=== PATIENT | female | born 1950 | race Caucasian/White ===

== ENCOUNTER → 2017-12-25 09:59 | Outpatient (CLI) | payer BC, SELFPAY ==
--- NOTE | 2017-12-25 10:04 | HPBI_ITS ---
MAMMOGRAPHY - BILATERAL SCREENING REASON FOR EXAM: Female, 67 years old. Routine annual screening examination. PERTINENT HISTORY: Non-contributory. Remote right breast biopsy. TECHNIQUE: Digital bilateral breast latonya (3D mammographic acquisition) in the CC and MLO projections. 2-D mediolateral oblique (MLO) and craniocaudad (CC) views of both breasts were obtained. CAD: Full Field Digital Mammography with Computer Added Detection was performed. COMPARISON: Comparison is made with prior study dated June 22, 2015 and October 28, 2013. FINDINGS: Breast Composition: The breasts are almost entirely fatty. There are no dominant masses or suspicious calcifications. There is a stable 1 cm nodular density in the mid anterior lateral portion of the right breast. This is unchanged from prior studies. Correlation with ultrasound is recommended. This may represent a small lymph node. No other significant abnormalities are identified. There has been no significant change since the prior study. HPBI/SCREENING MAMM (CAD), BILAT IMPRESSION: Stable nodular density in the right breast as described. Correlation with ultrasound is recommended. ASSESSMENT CATEGORY: BIRADS Category 0: Incomplete. Need additional imaging evaluation. A letter regarding these results will be sent to the patient by the facility within 30 days. Approximately 10% of breast cancers are not detected by mammography. A normal mammogram should not delay biopsy of a clinically suspicious abnormality. [id number] Electronically Signed: Louis Serrano MD at 8:18 EDT Tel [phone], Service support ,
== END ==
PROVIDERS: Visit Provider Obstetrics & Gynecology
DX: N63.10 Unspecified lump in the right breast, unspecified quadrant (principal)
CPT/HCPCS: 77063; 77067

== ENCOUNTER → 2018-01-02 15:01 | Outpatient (CLI) | payer BC, SELFPAY ==
--- NOTE | 2018-01-02 15:02 | US_ITS ---
STUDY: ULTRASOUND BREAST - RIGHT REASON FOR EXAM: Female, 67 years old. Abnormal mammogram TECHNIQUE: Axial and longitudinal images of the RIGHT breast were performed with a high resolution ultrasound transducer. COMPARISON: Mammogram from 12/25/2017 FINDINGS: RIGHT Breast: Ultrasound evaluation in the upper outer quadrant of the right breast shows no suspicious shadowing solid lesion, architectural distortion or shadowing calcifications. There are 2 hypoechoic nodules with fatty centers consistent with benign lymph nodes. The larger measures 1.8 x 1.7 x 0.7 cm, smaller 1.4 x 1.7 x 0.87 m. US/Breast Limited Unilateral IMPRESSION: No suspicious mammographic findings, benign lymph nodes identified. Follow-up mammogram in one year recommended. ASSESSMENT CATEGORY: BIRADS Category 2: Benign. A letter regarding these results will be sent to the patient by the facility within 30 days. Electronically Signed: Carlos Monroe MD at 8:19 EDT , Service support ,
== END ==
PROVIDERS: Visit Provider Obstetrics & Gynecology
DX: D36.0 Benign neoplasm of lymph nodes (principal)
CPT/HCPCS: 76642

== ENCOUNTER → 2019-02-23 13:00 | Outpatient (CLI) | payer BC, SELFPAY ==
--- NOTE | 2019-02-23 13:04 | BI_ITS ---
MAMMOGRAPHY - BILATERAL SCREENING REASON FOR EXAM: Female, 68 years old. Routine annual screening examination. PERTINENT HISTORY: Non-contributory. Prior right breast biopsy. TECHNIQUE: Digital bilateral breast latonya (3D mammographic acquisition) in the CC and MLO projections. 2-D mediolateral oblique (MLO) and craniocaudad (CC) views of both breasts were obtained. CAD: Full Field Digital Mammography with Computer Added Detection was performed. COMPARISON: Comparison is made with prior study dated June 22, 2015 and December 25, 2017. FINDINGS: Breast Composition: There are scattered areas of fibroglandular density. There are no dominant masses or suspicious calcifications. Stable 1 cm well-defined nodular density in the superior lateral anterior aspect of the right breast. This is unchanged when compared to multiple prior exams. Prior ultrasound demonstrated a small lymph node. No other significant abnormalities are identified. There has been no significant change since the prior study. BI/SCREENING MAMM (CAD), BILAT IMPRESSION: Stable bilateral screening mammogram. Yearly follow-up mammogram recommended. (A) ASSESSMENT CATEGORY: BIRADS Category 2: Benign. A letter regarding these results will be sent to the patient by the facility within 30 days. Approximately 10% of breast cancers are not detected by mammography. A normal mammogram should not delay biopsy of a clinically suspicious abnormality. [id number] Electronically Signed: Louis Serrano, at 15:05 EDT , Service support ,
== END ==
PROVIDERS: Family Provider Orthopaedic Surgery; PCP Orthopaedic Surgery; Referring Provider Obstetrics & Gynecology; Visit Provider Obstetrics & Gynecology
DX: Z12.31 Encounter for screening mammogram for malignant neoplasm of breast (principal)
CPT/HCPCS: 77063; 77067

== ENCOUNTER → 2021-05-10 13:42 | Outpatient (CLI) | payer MEDICARE, OTHER, SELFPAY ==
--- NOTE | 2021-05-10 13:45 | VDUE_ITS ---
Reason For Study: ESRD Right Arm Left Arm Right cephalic vein is compressible. Left cephalic vein is compressible. Right Cephalic Vein at the shoulder Left Cephalic Vein above antecub measures .36 measures .19 x .22 cm. x .38 cm. Right Cephalic Vein mid bicep measures .17 Left Cephalic Vein below antecub measures .24 x .19 cm. x .26 cm. Right Cephalic Vein above antecub Left Cephalic Vein in the forearm measures .2 measures .31 x .34 cm. x .19 cm. Right Cephalic Vein below antecub Left Cephalic Vein at the wrist measures .26 measures .22 x .24 cm. x .26 cm. Right Cephalic Vein in the forearm Cephalic V in the upper arm is tortuous and measures .22 x .23 cm. to small in caliber to assess. Right Cephalic Vein at the wrist measures .17 Left basilic vein is compressible. x .18 cm. Basilic vein at bicep measures .24 x .27 cm. Right basilic vein is compressible. Basilic vein above antecub measures .26 x .28 Right Basilic Vein mid bicep measures .16 cm. x .18 cm. Basilic vein below antecub measures .08 x .08 Right Basilic Vein above antecub measures .2 cm. x .21 cm. Basilic vein in the forearm measures .08 Right Basilic Vein below antecub measures .2 x .09 cm. x .19 cm. Basilic vein at the wrist measures .07 x .08 Right Basilic Vein in the forearm cm. measures .08 x .09 cm. Brachial art .29 x .28 cm Right Basilic Vein at the wrist measures .06 Brachial art 168.8 cm/s x .07 cm. Radial art .15 x .14cm Brachial art .32 x .33 cm Radial art 118.2 cm/s. Brachial art 162.9 cm/s Radial art .13 x .12 cm Radial art 80 cm/s. VL/Saphenous Vein Mapping, Bilat Interpretation Summary Patent and compressible bilateral extremity cephalic and basilic veins were not ed. The left upper arm cephalic vein is tortuous and too small in caliber to identi fy The bilateral upper arm basilic veins are also noted to be small Bilateral radial arteries are small. Bilateral brachial arteries are adequate Arterial flow rate slightly elevated in the radial and brachial arteries. Ordering Physician: Kellie Trinh Performed By: Nacho Wheeler RVT ?
== END ==
PROVIDERS: PCP Orthopaedic Surgery; Referring Provider Student in an Organized Health Care Education/Training Program; Visit Provider Student in an Organized Health Care Education/Training Program
DX: Z01.818 Encounter for other preprocedural examination (principal); N18.6 End stage renal disease
CPT/HCPCS: 93970; 93985

== ENCOUNTER 2021-06-25 05:31 | Day surgery (SDC) | payer MEDICARE, OTHER, SELFPAY ==
[2021-05-17 10:10] VITALS: BMI 41.7
--- NOTE | 2021-06-19 09:14 | EKG12_ITS ---
Test Reason : PREOP Blood Pressure : / mmHG Vent. Rate : 071 BPM Atrial Rate : 071 BPM P-R Int : 176 ms QRS Dur : 186 ms QT Int : 492 ms P-R-T Axes : 061 262 046 degrees QTc Int : 534 ms Atrial-sensed ventricular-paced rhythm with occasional Premature ventricular complexes Abnormal ECG Confirmed by SAE CHILDERS, MACKENZIE ([id number]), newspaper editor managing GAY BUSH ([id number]) on 06/20/2021 9:20:45 AM Referred By: Que Rob Confirmed By:MACKENZIE QUEVEDO MD
[2021-06-19 09:56] LABS: Hematocrit 30.1 % (37-47); Hemoglobin 9.2 g/dL (12.0-15.0); Mean Corp Hgb Conc 30.6 g/dL (32-36); Mean Corpuscular Hgb 30.8 pg (27.0-32.0); Mean Corpuscular Volume 100.7 fL (81-99); Mean Platelet Vol. 10.4 fl (6.2-12.0); Platelet Count 267 K/mm3 (150-450); RBC Distribution Width CV 14.6 % (11.6-14.6); RBC Distribution Width SD 53.5 fl (35.1-43.9); Red Blood Count 2.99 M/mm3 (4.2-5.4); White Blood Count 7.2 K/mm3 (4.4-11.0)
[2021-06-19 10:09] LABS: Anion Gap 7 (5-15); BUN 23 mg/dL (7-18); BUN/Creat Ratio 4.6 RATIO (10-20); Calcium,Total 10.4 mg/dL (8.5-10.1); Chloride 99 mmol/L (98-107); Creatinine, Serum 4.97 mg/dL (0.55-1.02); EST Glomerular Filtration Rate 9 mL/min (>60); Est Glom Filt Rate - Afr Amer 11 mL/min (>60); Glucose 168 mg/dL (74-106); Potassium 3.2 mmol/L (3.5-5.1); Sodium Level 135 mmol/L (136-145)
--- NOTE | 2021-06-25 06:19 | HP.PCM_ITS ---
History and Physical Date of Admission: 06/25/21 Intake Visit Reasons: 05/10 WC, PERMANT ACCESS PLACEMENT Chief Complaint: fistula consult Database Admin Required: No Is patient in pain?: No Allergies ibuprofen Allergy (Mild, Verified 05/17/21 10:11) PT UNSURE OF REACTION Medications aspirin 81 mg tablet,delayed release 81 mg PO DAILY 05/17/21 [History Confirmed 05/17/21] bisoprolol fumarate 5 mg tablet ea PO 05/17/21 [History Confirmed 05/17/21] ciprofloxacin HCl 250 mg tablet tablet PO 05/17/21 [History Confirmed 05/17/21] lactobacillus combo no.11 15 billion cell sprinkle capsule 1 cap PO DAILY 05/17/21 [History Confirmed 05/17/21] sitagliptin 25 mg tablet ea PO 05/17/21 [History Confirmed 05/17/21] vitamin B complex-vitamin C-folic acid 0.8 mg tablet 1 tab PO DAILY 05/17/21 [History Confirmed 05/17/21] [facility] Medical History (Updated 05/17/21 @ 10:[address] Que Rob MD) Acute renal failure (ARF) Bone spur Heart disease Low blood pressure Surgical History (Updated 05/17/21 @ 10:09 by Dolores Majano) S/P cardiac pacemaker procedure S/P laparoscopic cholecystectomy Family History (Updated 05/17/21 @ 10:10 by Dolores Majano) Father Diabetes Heart disease Mother Heart disease Social History (Updated 05/17/21 @ 10:10 by Dolores Majano) Smoking Status: Former smoker alcohol intake: never HPI HPI HPI: CLINTON COYLE, is a 70 F who presents to the office today for surgical consultation regarding arteriovenous hemodialysis fistula creation. The patient is referred by Dr. Trinh and a written copy my surgical consult recommendations will return to him. 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 Dialysis initiated at [facility] dialysis center in [facility]. The patient states that she was hospitalized in [facility] for 2 weeks and then has had a 20-day fdc stay. When questioned whether she is on oxygen apparently not during the day but she does require 3 L at night. She states that she has pulmonary restrictive disease. She is not clear as to the etiology of that. To complicate matters even further she has a pacemaker left chest going through the left subclavian vein. She is morbidly obese with a BMI of 41.7 her vein mapping is as noted below. May 10, 2021 Reason For Study: ESRD Right Arm Left Arm Right cephalic vein is compressible. Left cephalic vein is compressible. Right Cephalic Vein at the shoulder Left Cephalic Vein above antecub measures .36 measures .19 x .22 cm. x .38 cm. Right Cephalic Vein mid bicep measures .17 Left Cephalic Vein below antecub measures .24 x .19 cm. x .26 cm. Right Cephalic Vein above antecub Left Cephalic Vein in the forearm measures .2 measures .31 x .34 cm. x .19 cm. Right Cephalic Vein below antecub Left Cephalic Vein at the wrist measures .26 measures .22 x .24 cm. x .26 cm. Right Cephalic Vein in the forearm Cephalic V in the upper arm is tortuous and measures .22 x .23 cm. to small in caliber to assess. Right Cephalic Vein at the wrist measures .17 Left basilic vein is compressible. x .18 cm. Basilic vein at bicep measures .24 x .27 cm. Right basilic vein is compressible. Basilic vein above antecub measures .26 x .28 Right Basilic Vein mid bicep measures .16 cm. x .18 cm. Basilic vein below antecub measures .08 x .08 Right Basilic Vein above antecub measures .2 cm. x .21 cm. Basilic vein in the forearm measures .08 Right Basilic Vein below antecub measures .2 x .09 cm. x .19 cm. Basilic vein at the wrist measures .07 x .08 Right Basilic Vein in the forearm cm. measures .08 x .09 cm. Brachial art .29 x .28 cm Right Basilic Vein at the wrist measures .06 Brachial art 168.8 cm/s x .07 cm. Radial art .15 x .14cm Brachial art .32 x .33 cm Radial art 118.2 cm/s. Brachial art 162.9 cm/s Radial art .13 x .12 cm Radial art 80 cm/s. VL/Saphenous Vein Mapping, Bilat Interpretation Summary Patent and compressible bilateral extremity cephalic and basilic veins were noted. The left upper arm cephalic vein is tortuous and too small in caliber to identify The bilateral upper arm basilic veins are also noted to be small Bilateral radial arteries are small. Bilateral brachial arteries are adequate Arterial flow rate slightly elevated in the radial and brachial arteries. Ordering Physician: Kellie Trinh Performed By: Nacho Wheeler RVT ? 05/10/21 1530Date Que Rob ROS General General: Yes weight change; No appetite, fatigue, colon cancer, breast cancer or weakness HEENT HEENT: No difficulty swallowing, eye injury, eye surgery, swollen glands or hoarseness Endo Endocrine: Yes diabetes mellitus; No thyroid disease, thyroid cancer, Hair loss, heat intolerance or cold intolerance Skin Skin: No rash or changing moles Breast Breast: No left breast lump, right breast lump, nipple discharge, breast pain, abnormal mammogram, abnormal US or breast enlargement Musc Musculoskeletal: No back problems, arthritis, rheumatoid arthritis, gout or joint pain Cardio Cardiovascular: Yes pacemaker and high blood pressure; No murmur, heart disease, atrial fibrillation, heart attack, heart stent, palpitations, shortness of breat with exertion or chest pain Psych Psychiatric: No depression, anxiety or hearing voices Resp Respiratory: No shortness of breath, Yes sleep apnea, No cough, No COPD, No asthma, No emphysema and No wheezing Gastro Gastrointestinal: No abdominal pain, No nausea or vomiting, No diarrhea, No constipation, No blood in stool, No acid reflux, No hemorrhoids, No ulcers, No gallbladder problem and No black,tarry stools Aldo Hematologic: No blood thinners, No blood disorders, No bleeding, No anemia and No blood clots Neuro Neurologic: No system reviewed and no additional complaints, except as documented, No as per HPI, No abnormal gait, No abnormal hearing, No abnormal movements, No abnormal speech, No behavioral changes, No burning sensations, No confusion, No convulsions, No disequilibrium, No dizziness, No localized weakness, No frequent falls, No headache(s), No lack of coordination, No loss of vision, No memory loss, No numbness, No other visual disturbances, No radicular pain, No restless legs, No sensory deficit, No syncope, No tingling, No tremor(s), No weakness and No other Exam Const General: cooperative, comfortable and no acute distress Nutritional Appearance: obese Other: Patient is in a wheelchair [facility] Head: normal to inspection Chest Other: Increased AP diameter Left chest pacemaker Right internal jugular tunneled dialysis catheters Resp Other: Poor respiratory excursion, tight, bilateral bibasilar rales Cardio Rate: regular rate Rhythm: regular rhythm GI Other: Overweight Skin Other: Skin integrity bilateral upper extremities intact. Neuro Cognition: normal cognition Extrem Other: Notable bilateral lower extremity edema and increased diameter Psych Thought Process: normal COVID (Procedure Consent) Procedure Criteria Procedure Criteria: Yes Elective The surgeon/proceduralist and patient have discussed in detail the risk of exposure to and/or potential harm posed by the COVID-19 virus with having a surgery/procedure at this time versus the risk of delaying the surgery/procedure. It is not possible to know either the risk of delaying the surgery or procedure or chance of getting an infection with perfect accuracy, but a joint decision was made between the patient and the surgeon/proceduralist to proceed at this time with the scheduled surgery/procedure as indicated on the consent form. Assessment and Plan Assessment and Plan (1) Chronic renal failure, stage 5: Status: Chronic (2) Pacemaker: Status: Acute (3) Hemodialysis patient: Status: Acute (4) Morbid obesity: Status: Acute (5) Restrictive lung disease: Status: Acute Plan - Dr. Que Rob MD: 70-year-old female presents with a complexity of medical issues. With the pacemaker in left chest the left upper extremity is not utilize approval for grafts or fistulas. Her duplex imaging the right extremity demonstrates diminutive artery and veins. On my ultrasound inspection the cephalic vein of the forearm is significantly small. The cephalic vein of the upper arm is borderline but is noted to be in places at least a couple centimeters deep. After review I believe that the best option her for her would be a loop right forearm graft. I would like to use bovine carotid artery. I would anticipate trying to access the antecubital vein staying distal to the crease and hopefully the brachial artery just distal as well. This would then allow for maturation of the upper arm cephalic and basilic veins for potential future use for a autologous AV fistula. She has had an opportunity to ask and have questions answered. No guarantees of success have been offered. Her medical comorbidities as noted above certainly adds complexity. I have encouraged her to continue with her rehab and work with her primary care to assist with in particular her restrictive pulmonary disease. I would anticipate that we likely would attempt to proceed with this right forearm loop AV graft under monitored anesthesia care. I would need to have a combination of half percent lidocaine and mixed Marcaine local anesthetic We will schedule procedure at her discretion Copy: Dr. Trinh and Dr. Joe Rob M.D., F.A.C.S. Coding Level of Care Code 80587 Diagnoses Chronic renal failure, stage 5 N18.5 Pacemaker Z95.0 Hemodialysis patient Z99.2 Morbid obesity E66.01 Restrictive lung disease J98.4 Assessment & Plan Assessment/Plan (1) Chronic renal failure, stage 5: (2) Hemodialysis patient: PLAN: Pt has not had dialysisThe patient since Friday. She states that she limits her fluid and salt. She complains however that she is feeling bloated throughout. Her lower extremities are swollen. She states they get that way when she does not wear support hose. She states they usually go down by morning. It is unclear as to whether she thought her legs were less swollen this morning prior to coming in. She then states that over the past 2 to 3 weeks she has noticed increased swelling. She states there is been no comment made at the dialysis center. The patient has tunneled right internal jugular dialysis catheters. She is morbidly obese with a BMI of 41.. She has a pacemaker left chest I am hopeful for a right forearm loop AV graft. I have discussed with and we anticipate proceeding with monitored anesthesia care. Dr. Joe Ponce I have additionally instructed the patient she needs to pursue dialysis soon as possible. Que Rob M.D., F.A.C.S.
[2021-06-25] MEDS: 0.9% Normal Saline 1,000 ML 30 ML IV (06:37)
[2021-06-25 06:38] VITALS: BP 133/64; PULSE 74; RESP 16; TEMP 36.9; O2SAT 98; BMI 41.7
[2021-06-25 06:51] LABS: Bedside Glucose 135 mg/dL (70-110)
--- NOTE | 2021-06-25 06:57 | EX.PCM.DISCH ---
Discharge Instructions Procedure Appendectomy Diet Discharge Diet: Light diet - advance as tolerated Activity Discharge Activity: May Not Drive (for 3-5 days or while taking narcotic pain meds.) May shower in (days): 1 Dressing / Incision Call your doctor if your incision/area has: Continuous Slow Oozing, Sudden Increased Bleeding, Increased Pain/ Swelling, Increased Redness and Foul Smelling Discharge Call your doctor if you observe: Fever of 101 or Higher Suture Line Care: Avoid Pulling/Pushing and Avoid Pinching/Bending Additional Dressing/Incision Instructions:: Keep dressing clean and dry. Change or remove dressing in 2 days. Leave steri strips for 1 week. May protect with a gauze bandaid. Follow Up Care Please Follow Up With: Que Rob MD When: Call [phone] to make an appointment to be seen in 7 days. Test Results: Elevate your right arm for comfort. You may remove the elastic wrap tomorrow. Discharge Plan Admission Primary Reason for Your Visit: Stage V renal failure and need of arteriovenous hemodialysis access Attending Provider: Que Rob Primary Care Provider: Joe Heaton Discharge Orders/Prescriptions Prescriptions: New hydrocodone-acetaminophen 5-325 mg tablet 1 tab PO Q8H PRN (Reason: pain) 2 Days Qty: 5 RF: 0 Continued bisoprolol fumarate 5 mg tablet 2.5 mg PO SUTUTHSA RF: 0 Renal Vitamin 0.8 mg tablet 1 tab PO DAILY RF: 0 aspirin 81 mg tablet,delayed release (DR/EC) 81 mg PO DAILY RF: 0 Januvia 25 mg tablet 25 mg PO DAILY RF: 0 fluorometholone 0.1 % drops,suspension 1 drp EACH EYE QODAY RF: 0 Virt-Caps 1 mg capsule 1 cap PO DAILY RF: 0 Alphagan P 0.1 % drops 1 drp RIGHT EYE BID RF: 0 Referrals / Follow Up: Joe Heaton MD [Primary Care Provider] - Disposition Disposition (needs filled in before D/C Order can be placed): Home, Self Care
[2021-06-25] MEDS: Bupivacaine Mpf 0.5% 30 ML VIAL (07:42)
[2021-06-25] MEDS: Lidocaine 1% (30 ml sdv) 30 ML Vial (07:42)
[2021-06-25] MEDS: Heparin Injection (Vial) 5,000 UNIT/ML VIAL 5000 UNIT ×2 (08:30→09:00)
[2021-06-25] MEDS: 0.9% Normal Saline (Pres. free 10 ML Vial (08:30)
[2021-06-25] MEDS: Lidocaine 0.5% (50 ml) 50 ML Vial (09:30)
--- NOTE | 2021-06-25 09:39 | PCM.OPRPT ---
Problems Associated Problem List Diagnoses (1) Chronic renal failure, stage 5: (2) Hemodialysis patient: Report of Operation Date of Procedure: 06/25/21 Pre-Operative Diagnosis: Stage V chronic renal insufficiency on hemodialysis Post-Operative Diagnosis: Same Surgery/Procedure Performed:: Right upper extremity brachial to cephalic Artegraft collagen vascular graft loop forearm creation Reference [id number] Lot [id number] Expiry date 04/09/2024 Description of Surgical Findings:: Timeout and informed consent was obtained. Patient was taken to the operating placed on the table underwent monitored anesthesia care. 2 g of Ancef were given intravenously. The right upper extremity was sterilely prepped and draped. Throughout the procedure 16 cc of 1% lidocaine mixed 50-50 with 0.5% Marcaine was used as a local anesthetic. 20 cc of half percent lidocaine was used as a local anesthetic. Ultrasound mapping was performed. Local was instilled. A transverse incision was made just distal to the antecubital crease right upper extremity. Sharp and blunt dissection was used to identify the cephalic vein outflow. Sharp blunt dissection was used to identify the brachial artery. Then local was instilled in the forearm mapped out the appropriate loop counterincision was made in the mid to distal forearm then a 6 mm tunneler was used to tunnel the bovine carotid artery collagen graft from the antecubital space to the mid forearm and then back to the antecubital space. The patient received 10,000 units of heparin. At the completion of procedure she received 20 mg of protamine. Peripheral vascular clamps were placed on the brachial artery and 11 blade blade was used to make arteriotomy with extended with Bailey scissors a end-to-side anastomosis created with running 7-0 Prolene. Hemostasis was intact. It was had a good flow. He was irrigated and flushed with heparinized saline. In the venous component was secured with peripheral vas clamps 11 blade was used to make an arteriotomy and extended with Bailey scissors. The graft was short to length and the end of side anastomosis again created with running 7-0 Prolene. Prior to completion there is good antegrade flow. Anastomosis was completed with good hemostasis. There was good pulsatile flow. Doppler demonstrated good venous outflow. The wounds were closed with a deep layer of interrupted 3-0 Vicryl. Skin edges of the antecubital space running subcuticular 4 Monocryl. At the distal volar forearm simple sutures of 4-0 nylon was placed. Telfa OpSite dressings applied followed by 4 x 4's soft roll and Yoni wrap. Sponge and instrument and needle counts were reported to certainly be correct. Blood loss was minimal. Specimens none. Drains none. Blood loss minimal. Que Rob M.D., F.A.C.S. Surgeon: Que Rob Type of Anesthesia: Local MAC Anesthesiologist: Reinaldo Aaron
[2021-06-25 10:00] VITALS: BP 125/49; BP 133/74; PULSE 81; RESP 16; TEMP 36.6; O2SAT 91
[2021-06-25 10:05] VITALS: BP 118/58; BP 133/74; PULSE 81; RESP 16; O2SAT 92
[2021-06-25 10:10] VITALS: BP 116/63; BP 133/74; PULSE 79; RESP 16; O2SAT 92
[2021-06-25 10:16] VITALS: BP 131/65; BP 133/74; PULSE 78; RESP 16; TEMP 36.3; O2SAT 92
[2021-06-25 10:16] LABS: Bedside Glucose 114 mg/dL (70-110)
[2021-06-25 11:14] VITALS: BP 128/65; BP 133/74; PULSE 80; RESP 16; O2SAT 94
== END 2021-06-25 11:12 | disposition home or self-care (01) ==
LOC: SDC 05:31 → AC 05:32
PROVIDERS: PCP Orthopaedic Surgery; Referring Provider Surgery; Visit Provider Surgery
PROC: (CPT 36821; principal; 2021-06-25 07:15)
DX: E11.22 Type 2 diabetes mellitus with diabetic chronic kidney disease (principal); N18.5 Chronic kidney disease, stage 5; D63.1 Anemia in chronic kidney disease; N17.9 Acute kidney failure, unspecified; I95.9 Hypotension, unspecified; J98.4 Other disorders of lung; E66.01 Morbid (severe) obesity due to excess calories; Z68.41 Body mass index [BMI] 40.0-44.9, adult; Z95.0 Presence of cardiac pacemaker; Z99.2 Dependence on renal dialysis; Z79.82 Long term (current) use of aspirin; Z79.84 Long term (current) use of oral hypoglycemic drugs; Z79.899 Other long term (current) drug therapy; Z87.891 Personal history of nicotine dependence
CPT/HCPCS: 01844; 36821; 36415; 80048; 82962; 85027; 93005; J7030; J3490

== ENCOUNTER → 2022-05-28 | Outpatient (CLI) | payer MEDICARE, OTHER, SELFPAY ==
[2022-05-28 15:38] LABS: Vitamin D,25 Hydroxy 36.8 ng/mL
[2022-05-28 15:43] LABS: Anion Gap 4 (5-15); BUN 21 mg/dL (7-18); BUN/Creat Ratio 4.2 RATIO (10-20); Calcium,Total 10.4 mg/dL (8.5-10.1); Chloride 99 mmol/L (98-107); Creatinine, Serum 5.06 mg/dL (0.55-1.02); EST Glomerular Filtration Rate 9 mL/min (>60); Est Glom Filt Rate - Afr Amer 11 mL/min (>60); Glucose 108 mg/dL (74-106); Potassium 5.1 mmol/L (3.5-5.1); Sodium Level 135 mmol/L (136-145)
[2022-05-28 15:52] LABS: PTHIN 19.7 pg/mL (18.4-80.1)
[2022-05-31 11:29] LABS: Angiotensin Convert Enzyme 79 U/L (14-82)
[2022-05-31 15:00] LABS: Vitamin D 1,25-Dihydroxy 82.9 pg/mL (24.8-81.5)
== END | disposition home or self-care (01) ==
PROVIDERS: PCP Nurse Practitioner Family; Referring Provider Internal Medicine Endocrinology, Diabetes & Metabolism; Visit Provider Internal Medicine Endocrinology, Diabetes & Metabolism
DX: N18.5 Chronic kidney disease, stage 5 (principal); E55.9 Vitamin D deficiency, unspecified
CPT/HCPCS: 36415; 80048; 82164; 82306; 82652; 83970

== ENCOUNTER → 2022-06-06 | Outpatient (CLI) | payer MEDICARE, OTHER, SELFPAY ==
--- NOTE | 2022-06-06 12:16 | BI_ITS ---
MAMMOGRAPHY - BILATERAL SCREENING REASON FOR EXAM: Female, 71 years old. Routine annual screening examination. PERTINENT HISTORY: Non-contributory. Prior right stereotactic breast biopsy and ultrasound-guided breast biopsy. TECHNIQUE: Digital bilateral breast oseas (3D mammographic acquisition) in the CC and MLO projections. 2-D mediolateral oblique (MLO) and craniocaudad (CC) views of both breasts were obtained. CAD: Full Field Digital Mammography with Computer Added Detection was performed. COMPARISON: Comparison is made with prior study dated 02/23/2019 and 12/26/2007. FINDINGS: Breast Composition: There are scattered areas of fibroglandular density. The one 0.1 cm x 1.3 cm nodular density in the central lateral aspect of the right breast is once again seen. It is less dense as compared to prior study. Prior ultrasound demonstrated this to be a small lymph node. A battery pack from a pacemaker is seen in the left axilla. No other significant abnormalities are identified. There has been no significant change since the prior study. BI/SCRN MAMM (CAD)W/OSEAS BILAT IMPRESSION: Stable bilateral screening mammogram. Yearly follow-up mammogram recommended. (A) ASSESSMENT CATEGORY: BIRADS Category 2: Benign. A letter regarding these results will be sent to the patient by the facility within 30 days. Approximately 10% of breast cancers are not detected by mammography. A normal mammogram should not delay biopsy of a clinically suspicious abnormality. [id number] Electronically Signed: Louis Serrano MD at 13:14 EDT ,
== END | disposition home or self-care (01) ==
LOC: OPBI 12:13
PROVIDERS: PCP Nurse Practitioner Family; Visit Provider Nurse Practitioner Family
DX: Z12.31 Encounter for screening mammogram for malignant neoplasm of breast (principal)
CPT/HCPCS: 77063; 77067

== ENCOUNTER → 2022-06-11 | Outpatient (CLI) | payer MEDICARE, OTHER, SELFPAY ==
--- NOTE | 2022-06-11 08:25 | CT_ITS ---
STUDY: CT Chest W/O Contrast Injection 06/11/2022 8:17 PM REASON FOR EXAM: Female, 71 years old. HYPERCALCEMIA Individualized dose optimization techniques were used for this CT. TECHNIQUE: Transaxial imaging was performed withoutIV contrast material. COMPARISON: None. FINDINGS: There are degenerative changes of the shoulders. There is no pneumothorax. There is no demonstrated pleural abnormality. There is a left sided pacemaker batterypack. There are calcifications of the coronary arteries. There is moderate cardiac enlargement. Normal mediastinum. Normal hilar regions. Normal pulmonary arteries. There is atherosclerotic calcification of the aortic arch with tortuosity and elongation of the aortic arch and descending thoracic aorta. There are multi-level degenerative changes of the thoracic spine. There are no acute findings of the upper abdomen. CT/Chest without Contrast IMPRESSION: There are no acute findings. Electronically Signed: Asher Downing MD at 20:20 EDT ,
== END | disposition home or self-care (01) ==
LOC: CT 16:45
PROVIDERS: PCP Nurse Practitioner Family; Referring Provider Nurse Practitioner Family; Visit Provider Nurse Practitioner Family
DX: E83.52 Hypercalcemia (principal); I70.0 Atherosclerosis of aorta; I25.10 Atherosclerotic heart disease of native coronary artery without angina pectoris
CPT/HCPCS: 71250

== ENCOUNTER → 2022-07-16 | Outpatient (CLI) | payer MEDICARE, OTHER, SELFPAY ==
--- NOTE | 2022-07-16 09:47 | NM_ITS ---
CLINICAL: 71-year-old female with history of hypercalcemia. WHOLE BODY 99m Tc MDP RADIONUCLIDE BONE SCINTIGRAPHY COMPARISON: None available FINDINGS: Following the intravenous administration of 27.0 mCi of 99m Tc MDP, whole body bone images reveal: 1. Increased radiopharmaceutical concentration is identified in the acromioclavicular compartments of both shoulders, the mid cervical spine posteriorly on the left and right, the second thoracic vertebra posteriorly on the left, the ninth thoracic vertebra posteriorly on the left and right, the first and fifth lumbar vertebra, both knee articulations, the right midfoot and bilateral ankles. 2. The remaining skeletal structures are scintigraphically unremarkable with both renal images and urinary bladder activity identified. Focal enhanced tracer uptake is noted in the medial soft tissue compartment of the right lower extremity at the level of the distal femoral diaphysis. NM/Bone Scan Whole Body IMPRESSION: 1. The increase in tracer concentration identified in the bilateral shoulders, the cervical thoracic and lumbar spine, the bilateral knees, the right midfoot and both ankle articulations is commensurate with the presence of degenerative arthrosis. 2. There is no scintigraphic evidence of skeletal metastatic or metabolic bone disease on the current examination. 3. Facilitated uptake noted in the medial soft tissue compartment of the right lower extremity may represent an inflammatory process or posttraumatic dystrophic calcification. Clinical examination is recommended. Electronically Signed: Pineda Amaya, at 15:00 EDT ,
== END | disposition home or self-care (01) ==
LOC: NM 09:37
PROVIDERS: PCP Nurse Practitioner Family; Visit Provider Nurse Practitioner Family
DX: E83.52 Hypercalcemia (principal)
CPT/HCPCS: 78306; A9503

== ENCOUNTER → 2023-07-24 | Outpatient (CLI) | payer MEDICARE, OTHER, SELFPAY ==
--- NOTE | 2023-07-24 12:09 | BI_ITS ---
MAMMOGRAPHY - BILATERAL SCREENING REASON FOR EXAM: Female, 73 years old. Routine annual screening examination. PERTINENT HISTORY: Non-contributory. History of prior right stereotactic needle biopsies. TECHNIQUE: Digital bilateral breast oseas (3D mammographic acquisition) in the CC and MLO projections. 2-D mediolateral oblique (MLO) and craniocaudad (CC) views of both breasts were obtained. CAD: Full Field Digital Mammography with Computer Added Detection was performed. COMPARISON: Comparison is made with prior study dated June 06, 2022 and February 23, 2019. FINDINGS: Breast Composition: There are scattered areas of fibroglandular density. There are no dominant masses or suspicious calcifications. Stable 1.3 cm x 1 cm well-defined nodule in the central lateral aspect of the right breast. No other significant abnormalities are identified. There has been no significant change since the prior study. BI/SCRN MAMM (CAD)W/OSEAS BILAT IMPRESSION: Stable bilateral screening mammogram. Yearly follow-up mammogram recommended. (A) ASSESSMENT CATEGORY: BIRADS Category 2: Benign. A letter regarding these results will be sent to the patient by the facility within 30 days. Approximately 10% of breast cancers are not detected by mammography. A normal mammogram should not delay biopsy of a clinically suspicious abnormality. [id number] Electronically Signed: Louis Serrano MD at 14:31 EDT ,
== END | disposition home or self-care (01) ==
LOC: OPBI 12:08
PROVIDERS: PCP Nurse Practitioner Family; Referring Provider Nurse Practitioner Family; Visit Provider Nurse Practitioner Family
DX: Z12.31 Encounter for screening mammogram for malignant neoplasm of breast (principal)
CPT/HCPCS: 77063; 77067

== ENCOUNTER 2024-06-23 14:17 | Inpatient (IN) | payer MEDICARE, OTHER, SELFPAY ==
[2024-06-23] VITALS (25 sets, daily range): BP systolic 95–135; BP diastolic 47–120; PULSE 93–114; RESP 14–27; TEMP 36.1–36.9; O2SAT 96–100; BMI 43.0
--- NOTE | 2024-06-23 | IMM_PTH ---
PATIENT: CLINTON COYLE LOC: [facility] U#:[id number] AGE/SX: 73/F ROOM: [facility] RE06/23/[address]: Dr. Ang Messina DO : 1950 BED: 1 DIS: 07/02/2024 SPEC #: [id number] RECD: 06/30/24 14:04 STATUS: VILMA REQ #: [id number] VAHID: 06/23/24 00:[address]: Chris Nixon DEPT: IMMUNOHISTOCHEMISTRY RECD BY: Preston Madera ENTERED: 06/30/24 14:06 SP TYPE: IMMUNO OTHR DR: DO Dr. Bhaskar Barba MD Dr. Michael Bortz, MD Dr. Nicholas F Kotsonis, MD Whitney Hofstetter, HOME CARE AIDE-C Tissues: A - Colon, NOS Procedures: MSH2 (add) MLH-1 (add) MSH6 (add) Anti-PMS2 (add) KI-67 (add) P53 (add) MOC-31 (add) HER-2-KRISTIE (initial) PHYSICIAN & [place] [id number] SPECIMEN INFORMATION: Tissue Source: A- Right colon Clinical Info: Symptomatic anemia Specimen Number: [id number] CPT code: 11786,20743u3 METHODOLOGY: Deparaffinized sections of prefer/formalin-fixed tissue or PAP/DQ stained slides are incubated with monoclonal/polyclonal antibodies/oligonucleotide probes. Localization is made via biotin free immunoperoxidase method. Appropriate controls are performed and reacted as expected. Results on target cell population are indicated in the following table: RESULTS: ANTIBODY / CLONE RESULT Block A6 Her-2neu (CB11) 2+ (equivocal) MOC-31 (4561) positive MLH-1 (M1) negative MSH2 (25D12) positive MSH6 (44) positive PMS2 (YCY4154) positive Ki-67 (30-9) positive, high P53 (DO-7) positive, focal (wild type pattern) These tests were developed and their performance characteristics determined by [facility]. They may not have been cleared or approved by the U.S. Food and Drug Administration. The FDA has determined that such clearance or approval is not necessary. The above immunohistochemical/dualISH markers are ordered and reviewed by the Pathologist. INTERPRETATION: Right colon, hemicolectomy: Invasive adenocarcinoma. Result of Microsatellite Instability Study: Negative (no loss of mismatch protein; no microsatellite instability detected). See comment. COMMENT: Please make reference to IHC report ([id number]) for Her-2 by dual ANNETTA results. Case has been reviewed in consultation with Dr. Soto who concurs with the above diagnosis. IDC:[id number] PIERCE/mr 07/01/2024
--- NOTE | 2024-06-23 12:55 | RAD_ITS ---
STUDY: X-RAY CHEST REASON FOR EXAM: Female, 73 years old. Dyspnea, RAMIREZ, orthopnea TECHNIQUE: PA and lateral views of the chest. COMPARISON: None. FINDINGS: EKG electrodes are seen. Mild degree of vascular congestion. There is no demonstrated pleural abnormality. There is borderline cardiomegaly. A left-sided ICD is seen. Normal mediastinum and olivia. Normal visualized pulmonary arteries. There is atherosclerotic calcification of the aortic arch with tortuosity. There are diffuse degenerative changes of the visualized thoracic spine. Normal visualized ribs, clavicles, and shoulders. There is no demonstrated abnormality of the visualized soft tissue structures of the upper abdomen. RAD/Chest PA and Lateral IMPRESSION: Borderline cardiomegaly. Vascular congestion and a mild degree of CHF. Electronically Signed: Louis Serrano MD at 15:12 EDT ,
--- NOTE | 2024-06-23 14:40 | EKG12_ITS ---
Test Reason : WEAKNESS Blood Pressure : / mmHG Vent. Rate : 099 BPM Atrial Rate : 099 BPM P-R Int : 174 ms QRS Dur : 152 ms QT Int : 424 ms P-R-T Axes : 056 126 -25 degrees QTc Int : 544 ms Sinus rhythm with Premature atrial complexes with Aberrant conduction Non-specific intra-ventricular conduction block Abnormal ECG Confirmed by JOSEPH CHILDERS, FRANNIE ([id number]), clinical editor KENNETH MIDDLETON ([id number]) on 06/25/2024 7:56:49 AM Referred By: Chris Nixon Confirmed By:FRANNIE RUIZ MD
--- NOTE | 2024-06-23 14:46 | EX.ED.DYSGE1 ---
HPI History of Present Illness Chief Complaint: Weakness Detail of Chief Complaint: Sent from dialysis for symptomatic anemia Informant: patient Onset/Context/Timing Onset: Days Context: Sudden Onset Timing: Continuous Quality: Dyspnea, RAMIREZ, orthopnea Location: Respiratory and hematology Current Severity: Moderate Maximum Severity: Moderate Worsened by: Exertion and supine position Relieved by: Nothing Associated Symptoms Associated Symptoms: Patient states her stool is dark. She was started on Eliquis 2 weeks ago. Narrative Narrative: Patient is a 73-year-old woman. She has history of end-stage renal disease on hemodialysis Friday, Friday and Friday. She was recently diagnosed with atrial fibrillation placed on Eliquis. She does have a pacemaker in place. She also has restrictive lung disease. She does endorse history of congestive heart failure. Her orthopnea is worse. She denies PND. Denies chest pressure or tightness. Patient denies fever, chills night sweats. Patient Nuys headache, visual, ocular auditory symptoms. Patient denies cough. Patient denies chest pain or pressure. Patient denies abdominal pain, nausea, vomiting or diarrhea. She does not believe her stool is black or maroon in color. Prior similar symptoms: No Recent Illness/Hospitalization: No PFSH PFS Medical History Hypercalcemia Wears glasses History of steroid therapy Walker as ambulation aid Diabetes History of renal dialysis History of renal disease Anemia Dietary restriction History of diverticulitis Former smoker BiPAP (biphasic positive airway pressure) dependence Sleep apnea Shortness of breath on exertion History of edema History of echocardiogram Cardiology follow-up encounter History of irregular heartbeat Heart disease Bone spur Low blood pressure Acute renal failure (ARF) Home Medications ?Medication ?Instructions ?Recorded ?Last Taken ?Type aspirin 81 mg tablet,delayed 81 mg PO DAILY 05/17/21 Unknown History release bisoprolol fumarate 5 mg tablet 2.5 mg PO SUTUTHSA BP 05/17/21 Unknown History sitagliptin phosphate 25 mg tablet 25 mg PO DAILY 05/17/21 Unknown History (Januvia) vitamin B complex-vitamin C-folic 1 tab PO DAILY 05/17/21 Unknown History acid 0.8 mg tablet (Renal Vitamin) brimonidine 0.1 % eye drops 1 drp RIGHT EYE BID 05/31/21 Unknown History (Alphagan P) fluorometholone 0.1 % eye 1 drp EACH EYE QODAY 05/31/21 Unknown History drops,suspension vitamin B complex and vitamin C 1 cap PO DAILY 05/31/21 Unknown History no.20-folic acid 1 mg capsule (Virt-Caps) cefuroxime axetil 500 mg tablet ea PO 05/28/22 Unknown History Allergy/AdvReac Type Severity Reaction Status Date / Time ibuprofen Allergy Mild PT UNSURE Verified 06/23/24 14:17 OF REACTION Phenylpiperazine Allergy NEEDS Verified 06/23/24 14:17 Antidepressant FOLLOW-UP Tetracyclic Antidepressants Allergy NEEDS Verified 06/23/24 14:17 FOLLOW-UP Tricyclic Antidepressants Allergy NEEDS Verified 06/23/24 14:17 and Tricy FOLLOW-UP Family History Father Diabetes Heart disease Mother Heart disease Surgical History History of arteriovenostomy for renal dialysis S/P cardiac pacemaker procedure S/P laparoscopic cholecystectomy Social History (Updated 06/23/24 @ 14:[address] Sebastian Brasher MD) household members: spouse Smoking Status: Former smoker alcohol intake: never ROS ROS ED Constitutional Constitutional ED: Denies chills, fever(s), subjective, sweats or weight loss Eyes Eyes: Denies blurry vision, change in vision or diplopia ENT ENT ED: Denies ear pain, rhinorrhea or sore throat Cardiovascular Cardiovascular: Reports orthopnea; Denies chest pain, palpitations, paroxysmal nocturnal dyspnea or racing heartbeat Respiratory/Chest Respiratory/Chest: Reports dyspnea, dyspnea on exertion and orthopnea; Denies cough or paroxysmal nocturnal dyspnea Gastrointestinal Gastrointestinal: Denies abdominal pain, diarrhea, melena, nausea or vomiting Musculoskeletal Musculoskeletal: Denies arthralgias, back pain, myalgias or neck pain Integumentary Denies rash Neurologic Neurologic: Reports weakness; Denies headache(s) or paresthesias Psychiatric Psychiatric: Denies anxiety Endocrine Endocrinology: Denies cold intolerance or heat intolerance Hematologic/Lymphatic Hematologic/Lymphatic: Reports systems reviewed and no addt'l complaints, except as documented and other Details: Patient is on anticoagulant, Eliquis for atrial fibrillation. EXAM Physical Exam Const Vital Signs: 06/23/24 14:17 06/23/24 15:03 Temperature 97.5 F L Temperature Source Temporal Pulse Rate 93 Pulse Rate [Sitting (for 1 minute prior to obtaining)] 110 H Pulse Rate [Standing (for 1 minute prior to obtaining)] 114 H Respiratory Rate 20 H Blood Pressure 101/47 L Blood Pressure [Sitting (for 1 minute prior to obtaining)] 110/65 Blood Pressure [Standing (for 1 minute prior to obtaining)] 95/51 L Blood Pressure Mean 65 Blood Pressure Mean [Sitting (for 1 minute prior to obtaining)] 80 Blood Pressure Mean [Standing (for 1 minute prior to obtaining)] 65 Pulse Ox 99 Oxygen Delivery Method Room Air Positive well nourished and well developed Constitutional Narrative: Patient is sitting up with her feet hanging over the bed because of orthopnea. She appears pale. General Appearance ED: well developed, NAD and pallor; Negative for cyanotic or diaphoretic HEENT Reports moist mucous membranes HEENT Narrative: Head is atraumatic, cephalic. Ears normal. Nares patent. Posterior pharynx is normal. Eyes PERRL and EOMs intact bilaterally General Eye ED: Yes pale conjunctiva; Negative for scleral icterus Neck no lymphadenopathy, supple and no JVD Neck Narrative: Trachea is midline. There is no dysphonia. Chest Wall palpation of chest normal Resp normal respiratory effort and No clear to auscultation bilaterally Auscultation: rales bilateral base Cardio regular rate, S1 normal heart sound, S2 normal heart sound and no murmurs Rhythm: abnormal rhythm irregularly irregular GI normal to inspection, nondistended, normoactive bowel sounds, non-tender, non-distended and no masses; Negative for hepatosplenomegaly GI Narrative: Rectal exam reveals evidence of prior hemorrhoids. Stool is black or maroon in color consistent with GI bleed. Auscultation: hyperactive bowel sounds Palpation: soft Back/Spine no CVA tenderness Thoracic Spine / Upper Back: Negative for thoracic spinal tenderness Lumbar Spine / Lower Back: Negative for lumbar spinal tenderness Extremity normal to inspection Neuro oriented x3, CN's II-XII intact bilaterally and no sensory deficits noted Sensorium / Orientation: alert Motor Exam: strength 5/5 throughout Psych Mood & Affect: anxious Skin no rashes or lesions noted, no wounds and No skin turgor normal General Skin Exam: pallor; Negative for elasticity normal or jaundice MDM MDM MDM Narrative Medical decision making narrative: Blood pressure is on the low side. Patient's hemoglobin was 11.2 on June 04 and 8.2 on June 18. These were performed at outside lab. Clinically patient appears anemic. In light of the fact that she is hypotensive, black-maroon stool on anticoagulant suspect she has a GI bleed. She is never had a colonoscopy so need to rule out upper versus lower. Presume upper. Patient's been typed and screened. Appropriate blood work was obtained. Will contact Dr. Nixon since she will need a EGD and probable colonoscopy. Will hold her anticoagulant. Since she is not tachycardic and not on a beta-lg will not reverse her Eliquis at this time since she is not hemodynamically unstable. Patient does not know what her normal blood pressure readings are. Patient does receive heparin with dialysis. Contacting [facility] to determine how much heparin she was given a loading dose of 1606 100/h. She was on dialysis for 3 hours. In light of this we will order protamine. Patient was typed and crossed for 4 units of blood. 2 were ordered to be given. Lactate was normal. History & Record Review Discussion w/independent historian: Patient and Significant other Additional record(s) reviewed:: Prior ED visit (Most recent records were May 2022.) and Prior labs Lab Data Attestation: I reviewed the patient's lab results. Lab results narrative: There is approximate 3 g drop in hemoglobin since Friday. Since patient is hypotensive, tachycardic on Elik Alvaro Kcentra was ordered. She received protamine because she got heparin total of 4400 units at dialysis. Will contact hospitalist for admission to ICU. Still awaiting callback from Dr. Nixon. Labs: Laboratory Results - last 24 hr 06/23/24 14:37 WBC 7.8 RBC 1.84 L Hgb 5.7 L* Hct 18.4 L MCV 100.0 H MCH 31.0 MCHC 31.0 L RDW Std Deviation 58.7 H RDW Coeff of Ernie 16.1 H Plt Count 308 MPV 10.8 Immature Gran % (Auto) 0.600 Neut % (Auto) 74.3 H Lymph % (Auto) 11.7 L Randolph % (Auto) 8.9 Eos % (Auto) 4.0 Baso % (Auto) 0.5 Absolute Neuts (auto) 5.8 Absolute Lymphs (auto) 0.91 Nucleated RBC % 0 Sodium 139 Potassium 3.0 L Chloride 100 Carbon Dioxide 30.0 Anion Gap 9 BUN 18 Creatinine 2.32 H Estim Creat Clear Calc 25.18 Est GFR (MDRD) Af Amer 27 L Est GFR (MDRD) Non-Af 22 L BUN/Creatinine Ratio 7.8 L Glucose 144 H Lactic Acid 1.6 Calcium 8.1 L Radiography Chest X-Ray - ED: 2 View, Read by ED Physician, Unchanged (Patient does have a dual-chamber pacemaker noted. Story volume is slightly limited. There is no infiltrate, effusion or evidence of CHF. This is for newly reviewed interpreted by me at 1512), Heart, Mediastinum, Bony Structures and No Acute Disease Diagnostic Testing: Clinical Impression(s) from Imaging Studies Chest X-Ray 06/23/24 12:55 IMPRESSION: Borderline cardiomegaly. Vascular congestion and a mild degree of CHF. Electronically Signed: Louis Serrano MD at 15:12 EDT , I reviewed the x-ray after reading the radiology report. My opinion patient does not have heart failure. The inspiratory volume is poor with only 7 rib seen. There is no cephalization. There is no curly B-lines. There is no effusion noted. EKG Initial EKG: Attestation: I personally reviewed and interpreted this EKG as follows: Interpretation: Sinus Rhythm (Rate is 99. Patient has frequent premature beats and probably wide her heart was irregular. WI interval 274 ms. QS duration is prolonged at 102 ms. QT is 424. [place] is to the right. Patient has nonspecific intraventricular conduction delay. There is no acute ischemic changes noted.) Management Discussion w/another healthcare provider: Hospitalist (Hospitals made aware of patient's history physical laboratory results and discussion with Dr. Nixon) and Pathology Laboratory Director (Spoke with Dr. Nixon. Documentation of conversation in the critical care portion of the medical record.) Critical Care Time Critical Care Time: Yes Critical care time (excluding procedures): 30-74 minutes (42), Including time spent: (History, physical, documentation, review of prior records and labs), Discussing w/Patient &/or Family/Resident Physician In Radiology (Patient and were informed that she will need admission in all likelihood ICU. She also was told that she will receive blood products and that her heparin dose and her Eliquis will be reversed because of her change in hemodynamic status.), Discussing w/Consultants (Spoke with Dr. Nixon. He was informed the patient's history and no prior EGD or colonoscopy and reason she presents with significant drop in hemoglobin and the fact that she is symptomatic. He agrees with treatment at this time.), Arranging Admission or Transfer and - (Contacted dialysis center and spoke to her nurse regarding heparin dose. Patient also received reversing agent for Eliquis since she is tachycardic hypotensive with a significant drop in her hemoglobin. 500 cc bolus of normal saline was also ordered.) Discharge Plan Dx/Rx/DC Orders Clinical Impression: Acute gastrointestinal bleeding, Morbid obesity, Restrictive lung disease, Pacemaker, Anemia due to acute blood loss, Signs and symptoms of anemia, Symptomatic anemia, Chronic kidney disease on chronic dialysis, Acute hypotension, Sinus tachycardia seen on supervisor engraving, Transfusion of blood during current hospitalization Disposition Disposition: Acute Care [facility]
[2024-06-23 15:01] LABS: Absolute Lymphocyte Count 0.91 X10^3/uL (0.83-4.51); Absolute Neutrophil Count 5.8 X10^3/uL (2.0-7.7); Basophil# 0.04 X10^3/uL; Basophil% 0.5 % (0-1); Eosinophil# 0.31 X10^3/uL; Hematocrit 18.4 % (37-47); Lymphocyte # 0.91 X10^3/ul (0.83-4.51); Lymphocyte % 11.7 % (19-41); Mean Platelet Vol. 10.8 fl (6.2-12.0); Monocyte# 0.69 X10^3/uL; Monocyte% 8.9 % (0-10); NRBC Flagged by Analyzer 0 % (0-5); Neutrophil # 5.79 X10^3/uL (2.7-7.7); Neutrophil % 74.3 % (47-70); POSITIVE COUNT YES; Platelet Count 308 K/mm3 (150-450); RBC Distribution Width CV 16.1 % (11.6-14.6); RBC Distribution Width SD 58.7 fl (35.1-43.9); Red Blood Count 1.84 M/mm3 (4.2-5.4); White Blood Count 7.8 K/mm3 (4.4-11.0)
[2024-06-23 15:13] LABS: Anion Gap 9 (5-15); BUN 18 mg/dL (7-18); BUN/Creat Ratio 7.8 RATIO (10-20); Calcium,Total 8.1 mg/dL (8.5-10.1); Chloride 100 mmol/L (98-107); Creatinine, Serum 2.32 mg/dL (0.55-1.02); EST Glomerular Filtration Rate 22 mL/min (>60); Est Glom Filt Rate - Afr Amer 27 mL/min (>60); Estimated Creatinine Clearance 25.18 ml/min; Glucose 144 mg/dL (74-106); Hemoglobin 5.7 g/dL (12.0-15.0); Sodium Level 139 mmol/L (136-145)
[2024-06-23 15:29] LABS: Lactic Acid 1.6 mmol/L (0.4-1.9)
[2024-06-23] MEDS: 0.9% Normal Saline (500mL Bag) 500 ML 1000 ML IV (15:37)
[2024-06-23] MEDS: Protamine Sulfate 50 MG/5 ML Vial 25 MG IV (15:37)
[2024-06-23] MEDS: HUM PROTHROMBIN CPLX(PCC)-LANS 5,000 UNIT in Viaflex Bag 1 BAG 500 UNIT IV (15:46)
[2024-06-23] MEDS: VIAFLEX IV (15:54)
[2024-06-23] MEDS: HUM PROTHROMBIN CPLX LANS IV (15:54)
[2024-06-23 15:55] LABS: Differential Comment SCANNED; Differential Indicated SCAN CRITERIA MET
[2024-06-23 16:16] LABS: Anisocytosis 2+
[2024-06-23 16:20] LABS: Hypochromasia 1+; Polychromasia RARE
--- NOTE | 2024-06-23 16:28 | PRE.ANES_ITS ---
ASA Classification* ASA Classification ASA Classification: 3 and E Assessment & Plan Anesthesia* Anesthesia Assessment Anesthesia Assessment: Discussed sedation and/or anesthesia options, risks, benefits, and alternatives with patient/parents/legal guardian/POA. Questions invited. The patient/parents/legal guardian/POA seems to understand and agrees to proceed with anesthesia plan. Reviewed the physical assessment, medical history, allergy history and patient home medications list prior to surgery/procedure/anesthetic and documented any changes. Performed airway and anesthesia risk assessments. Anesthesia Type Anesthesia Type: MAC History Source History Obtained from:: Patient and Chart Anesthesia Focused Assessment* Temperature: 97.8 F Pulse Rate: 105 Blood Pressure: 108/72 Respiratory Rate: 18 Pulse Ox: 100 Oxygen Delivery Method: Nasal Cannula (2 l/m) Airway Assessment Mouth opens: >3 cm Mallampati Score: III Teeth Condition: Missing (Several missing teeth) Neck Range of motion (ROM): Limited ROM (Somewhat decreased extension) Pertinent Findings EKG Pertinent Findings:: 06/23/2024 sinus rhythm with premature atrial complexes with aberrant conduction. Nonspecific intraventricular block Focused Labs Anesthesia Preop lab: CBC WBC 7.8 K/mm3 (4.4-11.0) 06/23/24 14:37 RBC 1.84 M/mm3 (4.2-5.4) L 06/23/24 14:37 Hgb 5.7 g/dL (12.0-15.0) L* 06/23/24 14:37 Hct 18.4 % (37-47) L 06/23/24 14:37 Plt Count 308 K/mm3 (150-450) 06/23/24 14:37 CHEMISTRY Potassium 3.0 mmol/L (3.5-5.1) L 06/23/24 14:37 Sodium 139 mmol/L (136-145) 06/23/24 14:37 BUN 18 mg/dL (7-18) 06/23/24 14:37 Creatinine 2.32 mg/dL (0.55-1.02) H 06/23/24 14:37 Glucose 144 mg/dL (74-106) H 06/23/24 14:37 POC Glucose 114 mg/dL (70-110) H 06/25/21 10:12 COAG Pre-Assessment Diagnosis/Proposed Procedure Planned Operative Procedure(s): Esophagogastroduodenoscopy. Anesthesia History Anesthesia History - public health staff nurse: Anesthesia History - public health staff nurse Hx Hospitalization Yes 05/31/21 14:21 Any Problems With Anesthesia No: HARD TO WAKE 05/31/21 14:21 Cholinesterase deficiency No 05/31/21 14:21 You/Your Family Experience No 05/31/21 14:21 fever (hyperthermia) with Relationship Recent Exposure to Contagious No 06/25/21 06:25 Disease Does patient have nerve No 05/31/21 14:21 stimulator Patient instructed to have device shut off --Does patient have Pacemaker or ICD? When Was Last Pacemaker Check QUESTION #4 FULL TEXT: You/Your Family Experience fever (hyperthermia) with Anesthesia Last Oral Intake Last Oral intake: Last Oral Intake NPO since Meds taken in AM with sips of water? Meds patient instructed to take am of surgery Any additional information?: Yes NPO since: 00:00 PONV PONV - public health staff nurse: PONV - public health staff nurse Female HX of Motion Sickness HX of N/V After Surgery Non-Smoker Duration of Surgery greater than 60 minutes Number of Risk Factors PONV Score Height & Weight Height & Weight: Anesthesia: Height & Weight Height 5 ft 2 in 06/23/24 14:17 Weight: 106.8 kg 06/23/24 14:29 Body Mass Index (BMI) 43.0 06/23/24 14:29 Respiratory Assessment Respiratory Assessment - public health staff nurse: Respiratory Tract Infection Hx - public health staff nurse Hx Respiratory Tract Infection No 05/31/21 14:21 STOP Sleep Apnea STOP Sleep Apnea - public health staff nurse: STOP Sleep Apnea - public health staff nurse Hx Hypertension Yes: LOW BP 05/31/21 14:21 Hx Sleep Apnea Yes 06/25/21 10:16 CPAP No 06/25/21 10:00 BIPAP Yes 05/31/21 14:21 Do you snore loudly (louder than talking or can be heard Do you often feel tired/ fatigued/ sleepy during daytime? Has anyone observed you stop breathing during sleep? STOP Results QUESTION #5 FULL TEXT : Do you snore loudly (louder than talking or can be heard through closed doors)? Tobacco Use History Tobacco Use History - public health staff nurse: Tobacco Use History - public health staff nurse Tobacco Use Smoking Status Former smoker 06/23/24 14:47 Hx Tobacco Use No 05/31/21 14:21 Years Smoking Packs Smoked per Day Smoking Cessation Date was No - quit smoking greater 06/23/24 14:45 within the last 15 years than 15 years ago Hx Smoking Cessation Date 03/13/85 06/23/24 14:45 Hx Smoking Cessation Counseling Hematologic Medial History Hematologic Hx - public health staff nurse: Hematologic Medical Hx - clinical documentation improvement specialist Hx of Blood Transfusion Hx of Transfusion in last 3 Months Date of Last Transfusion (if within last 3 months) Ever experience any problems with transfusion(s)? Specify any problems Hx of Preganancy in last 3 Months Nurse Filling Out Transfusion & Questions: Date: Time: Patient unable to answer at this time (ie. confused, unrespo /Reproduction History /Reproductive History - public health staff nurse: /Reproductive Hx- public health staff nurse Hx Now Gestational Age (in weeks): EDC: Hx Hx Para Hx Section SAB PFSH Medical History Hypercalcemia Wears glasses History of steroid therapy Walker as ambulation aid Diabetes History of renal dialysis History of renal disease Anemia Dietary restriction History of diverticulitis Former smoker BiPAP (biphasic positive airway pressure) dependence Sleep apnea Shortness of breath on exertion History of edema History of echocardiogram Cardiology follow-up encounter History of irregular heartbeat Heart disease Bone spur Low blood pressure Acute renal failure (ARF) Home Medications ?Medication ?Instructions ?Recorded ?Last Taken ?Type aspirin 81 mg tablet,delayed 81 mg PO DAILY 05/17/21 Unknown History release bisoprolol fumarate 5 mg tablet 2.5 mg PO SUTUTHSA BP 05/17/21 Unknown History sitagliptin phosphate 25 mg tablet 25 mg PO DAILY 05/17/21 Unknown History (Januvia) vitamin B complex-vitamin C-folic 1 tab PO DAILY 05/17/21 Unknown History acid 0.8 mg tablet (Renal Vitamin) brimonidine 0.1 % eye drops 1 drp RIGHT EYE BID 05/31/21 Unknown History (Alphagan P) fluorometholone 0.1 % eye 1 drp EACH EYE QODAY 05/31/21 Unknown History drops,suspension vitamin B complex and vitamin C 1 cap PO DAILY 05/31/21 Unknown History no.20-folic acid 1 mg capsule (Virt-Caps) cefuroxime axetil 500 mg tablet ea PO 05/28/22 Unknown History Allergy/AdvReac Type Severity Reaction Status Date / Time ibuprofen Allergy Mild PT UNSURE Verified 06/23/24 14:17 OF REACTION Phenylpiperazine Allergy NEEDS Verified 06/23/24 14:17 Antidepressant FOLLOW-UP Tetracyclic Antidepressants Allergy NEEDS Verified 06/23/24 14:17 FOLLOW-UP Tricyclic Antidepressants Allergy NEEDS Verified 06/23/24 14:17 and Tricy FOLLOW-UP Family History Father Diabetes Heart disease Mother Heart disease Surgical History History of arteriovenostomy for renal dialysis S/P cardiac pacemaker procedure S/P laparoscopic cholecystectomy Social History household members: spouse Smoking Status: Former smoker alcohol intake: never Review of Systems (Anesthesia) ROS Narrative System reviewed and no additional complaints, except as documented.
[2024-06-23] MEDS: Pantoprazole Sodium 80 MG in 0.9% Normal Saline (50mL Bag) 15 ML 420 MG IV BOLUS (16:30)
--- NOTE | 2024-06-23 16:37 | PCM.HP.STD ---
HPI - General General Date of Admission: 06/23/24 HPI Narrative CLINTON COYLE, is a 73 F who presents to the hospital from dialysis with severe anemia with a hemoglobin of 5.7. She was found to have A-fib 2 weeks ago and was started on Eliquis and has had a steady decline in her hemoglobin since then. Today her stools are melanotic and in the ER she was found to be a little bit hypotensive. She was given Kcentra and protamine to reverse the Eliquis that she is on and the heparin she received during dialysis today which she did complete. She denies any nausea or vomiting, no hematemesis. She does not have a history of any liver disease so a variceal bleed is unlikely. Gastroenterology was consulted by the ER who recommends EGD this afternoon. She did receive a dose of Protonix in the ER and has been typed and crossed for 4 units with 2 units ordered to be given during her EGD. She states that over the last couple of days she has been feeling worse but thought that it was due to her kidney disease and dialysis. During my evaluation, she is sitting up at the edge of the bed without any lightheadedness or dizziness. So aside from the fatigue she does not have significant symptoms at this time. [facility] Medical History Hypercalcemia Wears glasses History of steroid therapy Walker as ambulation aid Diabetes History of renal dialysis History of renal disease Anemia Dietary restriction History of diverticulitis Former smoker BiPAP (biphasic positive airway pressure) dependence Sleep apnea Shortness of breath on exertion History of edema History of echocardiogram Cardiology follow-up encounter History of irregular heartbeat Heart disease Bone spur Low blood pressure Acute renal failure (ARF) Home Medications ?Medication ?Instructions ?Recorded ?Last Taken ?Type aspirin 81 mg tablet,delayed 81 mg PO DAILY 05/17/21 Unknown History release bisoprolol fumarate 5 mg tablet 2.5 mg PO SUTUTHSA BP 05/17/21 Unknown History sitagliptin phosphate 25 mg tablet 25 mg PO DAILY 05/17/21 Unknown History (Januvia) vitamin B complex-vitamin C-folic 1 tab PO DAILY 05/17/21 Unknown History acid 0.8 mg tablet (Renal Vitamin) brimonidine 0.1 % eye drops 1 drp RIGHT EYE BID 08/19/21 Unknown History (Alphagan P) fluorometholone 0.1 % eye 1 drp EACH EYE QODAY 05/31/21 Unknown History drops,suspension vitamin B complex and vitamin C 1 cap PO DAILY 05/31/21 Unknown History no.20-folic acid 1 mg capsule (Virt-Caps) cefuroxime axetil 500 mg tablet ea PO 05/28/22 Unknown History Allergy/AdvReac Type Severity Reaction Status Date / Time ibuprofen Allergy Mild PT UNSURE Verified 06/23/24 14:17 OF REACTION Phenylpiperazine Allergy NEEDS Verified 06/23/24 14:17 Antidepressant FOLLOW-UP Tetracyclic Antidepressants Allergy NEEDS Verified 06/23/24 14:17 FOLLOW-UP Tricyclic Antidepressants Allergy NEEDS Verified 06/23/24 14:17 and Tricy FOLLOW-UP Family History Father Diabetes Heart disease Mother Heart disease Surgical History History of arteriovenostomy for renal dialysis S/P cardiac pacemaker procedure S/P laparoscopic cholecystectomy Social History household members: spouse Smoking Status: Former smoker alcohol intake: never ROS Constitutional Constitutional: Reports fatigue and weakness; Denies chills, fever(s) or malaise Eyes Eyes: Denies blurry vision ENT HEENT: Denies headache(s) or nasal discharge Cardiovascular Cardiovascular: Denies chest pain, dyspnea on exertion or syncope Respiratory/Chest Respiratory/Chest: Denies cough, shortness of breath at rest or shortness of breath with exertion Gastrointestinal Gastrointestinal: Reports melena; Denies coffee ground emesis, constipation, diarrhea, nausea or vomiting Genitourinary Genitourinary: Denies dysuria Neurologic Neurologic: Denies focal weakness, numbness or tremor(s) Psychiatric Psychiatric: Denies anxiety or depression Vital Signs Vital Signs Vital Signs: 06/23/24 14:17 06/23/24 14:45 06/23/24 15:03 Temperature 97.5 F L Temperature Source Temporal Pulse Rate 93 Pulse Rate [Sitting (for 1 minute prior to obtaining)] 110 H Pulse Rate [Standing (for 1 minute prior to obtaining)] 114 H Respiratory Rate 20 H Respiratory Effort Normal Respiratory Pattern Normal Blood Pressure 101/47 L Blood Pressure [Sitting (for 1 minute prior to obtaining)] 110/65 Blood Pressure [Standing (for 1 minute prior to obtaining)] 95/51 L Blood Pressure Mean 65 Blood Pressure Mean [Sitting (for 1 minute prior to obtaining)] 80 Blood Pressure Mean [Standing (for 1 minute prior to obtaining)] 65 Blood Pressure Source Blood Pressure Position Blood Pressure Location Pulse Ox 99 Oxygen Delivery Method Room Air Oxygen Flow Rate (L/min) 06/23/24 15:51 06/23/24 16:27 Temperature 97.5 F L 97.8 F Temperature Source Temporal Pulse Rate 105 H 105 H Pulse Rate [Sitting (for 1 minute prior to obtaining)] Pulse Rate [Standing (for 1 minute prior to obtaining)] Respiratory Rate 16 18 Respiratory Effort Respiratory Pattern Blood Pressure 108/50 L 108/72 Blood Pressure [Sitting (for 1 minute prior to obtaining)] Blood Pressure [Standing (for 1 minute prior to obtaining)] Blood Pressure Mean 69 84 Blood Pressure Mean [Sitting (for 1 minute prior to obtaining)] Blood Pressure Mean [Standing (for 1 minute prior to obtaining)] Blood Pressure Source Monitor Blood Pressure Position Semi-Fowlers Blood Pressure Location Left Arm Pulse Ox 100 100 Oxygen Delivery Method Nasal Cannula Oxygen Flow Rate (L/min) 2 Weight Weight: 235 lb 7.259 oz Body Mass Index (BMI) 43.0 Physical Exam Narrative General: Alert, Oriented x3, Cooperative, No apparent distress HEENT: Atraumatic, PERRLA, EOMI, Normocephalic Oral: Moist Mucosa Neck: Supple, No JVD Lungs: Diminished, Normal air movement, No rhonchi, No wheeze, No rales Cardiovascular: Tachycardic, Regular Rhythm, Normal S1, Normal S2, No murmurs Abdomen: Soft, Non Tender, Non-Distended, No Hepato-splenomegaly Extremities: No edema, Capillary Refill Less than 3 Seconds Skin: No rashes, No breakdown Musculoskeletal: No Tenderness to Palpation of Joints or Extremities Neurological: No focal neurological deficits, Motor Exam 5/5 strength throughout, Sensory exam intact to light touch and pain Psych/Mental Status: Normal Affect, Appropriate Results Lab / Micro Data 06/23/24 14:37 06/23/24 14:37 Labs: Laboratory Results - last 24 hr 06/23/24 14:37: WBC 7.8, RBC 1.84 L, Hgb 5.7 L*, Hct 18.4 L, MCV 100.0 H, MCH 31.0, MCHC 31.0 L, RDW Std Deviation 58.7 H, RDW Coeff of Ernie 16.1 H, Plt Count 308, MPV 10.8, Immature Gran % (Auto) 0.600, Neut % (Auto) 74.3 H, Lymph % (Auto) 11.7 L, Cobb % (Auto) 8.9, Eos % (Auto) 4.0, Baso % (Auto) 0.5, Absolute Neuts (auto) 5.8, Absolute Lymphs (auto) 0.91, Nucleated RBC % 0, Differential Comment SCANNED, Diff Path Review May foll, Polychromasia RARE, Hypochromasia 1+, Anisocytosis 2+, Sodium 139, Potassium 3.0 L, Chloride 100, Carbon Dioxide 30.0, Anion Gap 9, BUN 18, Creatinine 2.32 H, Estim Creat Clear Calc 25.18, Est GFR (MDRD) Af Amer 27 L, Est GFR (MDRD) Non-Af 22 L, BUN/Creatinine Ratio 7.8 L, Glucose 144 H, Lactic Acid 1.6, Calcium 8.1 L, Blood Type O POSITIVE, Antibody Screen NEGATIVE, Crossmatch See Detail Micro: Microbiology 06/23/24 14:56 Stool Stool Occult Blood (JAZMÍN) - Final Imaging Radiology Impression Chest X-Ray 06/23/24 12:55 IMPRESSION: Borderline cardiomegaly. Vascular congestion and a mild degree of CHF. Electronically Signed: Louis Serrano MD at 15:12 EDT , Assessment & Plan Assessment/Plan (1) Symptomatic anemia: PLAN: Plan 1. Acute blood loss anemia secondary to GI bleed ? Unclear if it is an upper or lower GI bleed ? Continue with Protonix ? Will transfuse 2 units and recheck hemoglobin ? Plan for EGD today, appreciate gastroenterology's assistance 2. Renal failure on dialysis ? She sees an [place] funeral driver and had complete dialysis today ? Will consult nephrology for dialysis on Friday if necessary 3. Restrictive lung disease ? No notes in our system to evaluate this ? As she does not appear to be on any medications for it though awaiting medication verification ? Continue with CPAP DVT: SCDs 75 minutes was spent on direct patient care, including documentation as well as chart review and collaboration with colleagues Charges/Coding Visit Charges Inpatient E&M: 35825 Init Hosp L3
--- NOTE | 2024-06-23 16:38 | CON.PCM.GI_ITS ---
HPI Consult Data Date of Consult: 06/23/24 HPI Narrative Reason for Consultation: GI bleed HPI Narrative: CLINTON COYLE, is a 73 F who presents from dialysis today with melanotic stools and hypotension. She receives hemodialysis on Friday, Friday and Friday. She was recently diagnosed with atrial fibrillation placed on Eliquis. She has a history of restrictive lung disease and wears oxygen at night. Also, she does have history of congestive heart failure and a permanent pacemaker for unknown reason. In the ED she was discovered to be hypotensive and tachycardic. Her hemoglobin was determined to be 5.7. She said prior to starting Eliquis her hemoglobin was 10.2. She has never had a colonoscopy. She does also take aspirin along with Eliquis on a daily basis and receives heparin in her dialysis catheter every time she gets dialysis. 06/23/24 14:37: WBC 7.8, RBC 1.84 L, Hgb 5.7 L*, Hct 18.4 L, MCV 100.0 H, MCH 31.0, MCHC 31.0 L, RDW Std Deviation 58.7 H, RDW Coeff of Ernie 16.1 H, Plt Count 308, Sodium 139, Potassium 3.0 L, Chloride 100, Carbon Dioxide 30.0, Anion Gap 9, BUN 18, Creatinine 2.32 H [facility] Medical History Hypercalcemia Wears glasses History of steroid therapy Walker as ambulation aid Diabetes History of renal dialysis History of renal disease Anemia Dietary restriction History of diverticulitis Former smoker BiPAP (biphasic positive airway pressure) dependence Sleep apnea Shortness of breath on exertion History of edema History of echocardiogram Cardiology follow-up encounter History of irregular heartbeat Heart disease Bone spur Low blood pressure Acute renal failure (ARF) Home Medications ?Medication ?Instructions ?Recorded ?Last Taken ?Type aspirin 81 mg tablet,delayed 81 mg PO DAILY 05/17/21 Unknown History release bisoprolol fumarate 5 mg tablet 2.5 mg PO SUTUTHSA BP 05/17/21 Unknown History sitagliptin phosphate 25 mg tablet 25 mg PO DAILY 05/17/21 Unknown History (Januvia) vitamin B complex-vitamin C-folic 1 tab PO DAILY 05/17/21 Unknown History acid 0.8 mg tablet (Renal Vitamin) brimonidine 0.1 % eye drops 1 drp RIGHT EYE BID 05/31/21 Unknown History (Alphagan P) fluorometholone 0.1 % eye 1 drp EACH EYE QODAY 05/31/21 Unknown History drops,suspension vitamin B complex and vitamin C 1 cap PO DAILY 05/31/21 Unknown History no.20-folic acid 1 mg capsule (Virt-Caps) cefuroxime axetil 500 mg tablet ea PO 05/28/22 Unknown History Allergy/AdvReac Type Severity Reaction Status Date / Time ibuprofen Allergy Mild PT UNSURE Verified 06/23/24 14:17 OF REACTION Phenylpiperazine Allergy NEEDS Verified 06/23/24 14:17 Antidepressant FOLLOW-UP Tetracyclic Antidepressants Allergy NEEDS Verified 06/23/24 14:17 FOLLOW-UP Tricyclic Antidepressants Allergy NEEDS Verified 06/23/24 14:17 and Tricy FOLLOW-UP Family History Father Diabetes Heart disease Mother Heart disease Surgical History History of arteriovenostomy for renal dialysis S/P cardiac pacemaker procedure S/P laparoscopic cholecystectomy Social History household members: spouse Smoking Status: Former smoker alcohol intake: never ROS Review of Systems ROS Unobtainable: other Constitutional Constitutional: Denies fatigue, fever(s), poor appetite, weight gain or weight loss ENT HEENT: Denies mouth lesions Cardiovascular Cardiovascular: Denies abdominal bloating, abdominal edema or abdominal pain Respiratory/Chest Respiratory/Chest: Denies change in mental status, change in phlegm color, chest congestion or chest tightness Gastrointestinal Gastrointestinal: Denies belching, bloating, change in bowel habits, change in stool character, chewing difficulty, coffee ground emesis, constipation, cramping, diarrhea, dyspepsia, dysphagia, early satiety, excessive flatus, fecal incontinence, heartburn, hematemesis, hematochezia, hemorrhoids, loose stools, melena, nausea, odynophagia, rectal bleeding, tenesmus, vomiting or weight changes Genitourinary Genitourinary: Denies abdominal discomfort, burning urination or itching Musculoskeletal Musculoskeletal: Reports as per HPI; Denies muscle weakness or myalgias Integumentary Integumentary: Denies jaundice Neurologic Neurologic: Denies lack of coordination or weakness Psychiatric Psychiatric: Denies confusion, depression, memory loss, mood swings, paranoia or suicidal ideation Endocrine Endocrinology: Denies systems reviewed and no addt'l complaints, except as documented Hematologic/Lymphatic Hematologic/Lymphatic: Denies anemia, easy bleeding, easy bruising or lymphadenopathy Allergic/Immunologic Allergic/Immunologic: Denies systems reviewed and no addt'l complaints, except as documented Physical Exam Const alert General Appearance: cooperative Orientation / Consciousness: oriented to person HEENT hearing grossly normal bilaterally Head and Scalp: normal to inspection Face and Sinus: face symmetric Nose: external nose normal Mouth: oral and palatal mucosa normal Eyes conjunctivae normal General Eye: normal appearance of both eyes Neck full ROM General: normal visual inspection Lymph Lymphatic: no lymphadenopathy noted Chest inspection of chest normal and palpation of chest normal Chest: symmetrical chest wall rise Resp normal respiratory effort Effort and Inspection: able to speak in complete sentences Cardio regular rate GI non-distended Percussion: normal to percussion Rectal Exam: deferred Neuro Speech: speech normal Gait (Neuro): normal gait Lab / Micro Data 06/23/24 14:37 06/23/24 14:37 Labs: Laboratory Results - last 24 hr 06/23/24 14:37: WBC 7.8, RBC 1.84 L, Hgb 5.7 L*, Hct 18.4 L, MCV 100.0 H, MCH 31.0, MCHC 31.0 L, RDW Std Deviation 58.7 H, RDW Coeff of Ernie 16.1 H, Plt Count 308, MPV 10.8, Immature Gran % (Auto) 0.600, Neut % (Auto) 74.3 H, Lymph % (Auto) 11.7 L, [place] % (Auto) 8.9, Eos % (Auto) 4.0, Baso % (Auto) 0.5, Absolute Neuts (auto) 5.8, Absolute Lymphs (auto) 0.91, Nucleated RBC % 0, Differential Comment SCANNED, Diff Path Review May foll, Polychromasia RARE, Hypochromasia 1+, Anisocytosis 2+, Sodium 139, Potassium 3.0 L, Chloride 100, Carbon Dioxide 30.0, Anion Gap 9, BUN 18, Creatinine 2.32 H, Estim Creat Clear Calc 25.18, Est GFR (MDRD) Af Amer 27 L, Est GFR (MDRD) Non-Af 22 L, BUN/Creatinine Ratio 7.8 L, Glucose 144 H, Lactic Acid 1.6, Calcium 8.1 L, Blood Type O POSITIVE, Antibody Screen NEGATIVE, Crossmatch See Detail Micro: Microbiology 06/23/24 14:56 Stool Stool Occult Blood (JAZMÍN) - Final Imaging Radiology Impression Chest X-Ray 06/23/24 12:55 IMPRESSION: Borderline cardiomegaly. Vascular congestion and a mild degree of CHF. Electronically Signed: Louis Serrano MD at 15:12 EDT , Assessment & Plan Assessment/Plan (1) Anemia due to acute blood loss: PLAN: 73-year-old with multiple comorbidities including congestive heart failure, ventricular arrhythmia status post permanent pacemaker, end-stage renal disease on dialysis, restrictive lung disease who presents after new diagnosis of atrial fibrillation and being started on Eliquis with what appears to be an upper GI bleed. She should undergo an upper endoscopy to evaluate his upper GI tract. She was complaining alternatives, risk, benefits including not withstanding bleeding, infection, sepsis, perforation, need for emergent urgent . She we will have an ASA of 3. Charges/Coding Visit Charges Inpatient E&M: 19483 Init Hosp L3
--- NOTE | 2024-06-23 16:49 | NURSING ---
per Dr Preston run blood at 500cc/hr
--- NOTE | 2024-06-23 17:14 | OP.EGD_ITS ---
Patient Name: Cindy Heaton Procedure Date: 06/23/2024 4:48 PM Date of : 1950 Age: 73 Procedure: Upper GI endoscopy Indications: Iron deficiency anemia secondary to chronic blood loss, Iron deficiency anemia, Unexplained iron deficiency anemia Providers: Chris Nixon DO Medicines: Monitored Anesthesia Care Patient Profile: This is a 73 year old female. Refer to note in patient chart for documentation of history and physical. Patient has symptoms. Complications: No immediate complications. Procedure: Pre-Anesthesia Assessment: - Prior to the procedure, a History and Physical was performed, and patient medications and allergies were reviewed. The patient is competent. The risks and benefits of the procedure and the sedation options and risks were discussed with the patient. All questions were answered and informed consent was obtained. Patient identification and proposed procedure were verified by the physician in the pre-procedure area. Mental Status Examination: alert and oriented. Airway Examination: normal oropharyngeal airway and neck mobility. Respiratory Examination: clear to auscultation. CV Examination: normal. Prophylactic Antibiotics: The patient does not require prophylactic antibiotics. Prior Anticoagulants: The patient has taken no anticoagulant or antiplatelet agents except for NSAID medication. ASA Grade Assessment: IV - A patient with severe systemic disease that is a constant threat to life. After reviewing the risks and benefits, the patient was deemed in satisfactory condition to undergo the procedure. The anesthesia plan was to use monitored anesthesia care (MAC). Immediately prior to administration of medications, the patient was re-assessed for adequacy to receive sedatives. The heart rate, respiratory rate, oxygen saturations, blood pressure, adequacy of pulmonary ventilation, and response to care were monitored throughout the procedure. The physical status of the patient was re-assessed after the procedure. After obtaining informed consent, the endoscope was passed under direct vision. Throughout the procedure, the patient's blood pressure, pulse, and oxygen saturations were monitored continuously. The Endoscope was introduced through the mouth, and advanced to the second part of duodenum. The upper GI endoscopy was accomplished without difficulty. The patient tolerated the procedure well. Scope In: 5:05:41 PM Scope Out: 5:09:05 PM Total Procedure Duration Time 0 hours 3 minutes 24 seconds Findings: The examined esophagus was normal. No gross lesions were noted in the entire examined stomach. No gross lesions were noted in the second portion of the duodenum. Impression: - Normal esophagus. - No gross lesions in the entire stomach. - No gross lesions in the second portion of the duodenum. - No specimens collected. Recommendation: - Return patient to hospital fair for ongoing care. - Clear liquid diet. - Continue present medications. - Prep today for colonoscopy tomorrow Procedure Code(s): --- Professional --- 82687, Esophagogastroduodenoscopy, flexible, transoral; diagnostic, including collection of specimen(s) by brushing or washing, when performed (separate procedure) CPT copyright 2021 [employer]. All rights reserved. The codes documented in this report are preliminary and upon medical billing coder review may be revised to meet current compliance requirements. Chris Nixon DO 06/23/2024 5:14:11 PM This report has been signed electronically. Number of Addenda: 0 Note Initiated On: 06/23/2024 4:48 PM
--- NOTE | 2024-06-23 17:15 | OP.CCLET_ITS ---
06/23/2024 Shey Juarez Re : Upper GI endoscopy procedure for Cindy Heaton Adrianar Pancho This procedure was performed on Friday, June 23, 2024. My impressions and recommendations are as follows: Impressions : - Normal esophagus. - No gross lesions in the entire stomach. - No gross lesions in the second portion of the duodenum. - No specimens collected. Recommendations : - Return patient to hospital fair for ongoing care. - Clear liquid diet. - Continue present medications. - Prep today for colonoscopy tomorrow My findings are described in the full procedure note, which is enclosed. If I can be of further assistance, please feel free to contact me at . Sincerely, Chris Nixon, 06/23/2024 5:14:11 PM This report has been signed electronically.
--- NOTE | 2024-06-23 17:20 | PCM.POST.ANE ---
Anesthesia: Postop Eval I Current Vital Signs Temperature: 98.1 F Pulse Rate: 100 Blood Pressure: 135/120 Respiratory Rate: 20 Pulse Ox: 100 Oxygen Delivery Method: Nasal Cannula Oxygen Flow Rate (L/min): 4 Assessment Airway patent: Yes Spontaneous unlabored respirations: Yes Mental status: Awake and Calm nausea: No Vomiting: No Anesthesia Complication: No Fluid Hydration Crystalloid volume administer (ml): 100 Total IV fluid infused: 100 Progress Note Anesthesia document: Postop Eval 1 completed: Yes
--- NOTE | 2024-06-23 17:46 | POSTOPAN2_ITS ---
Anesthesia Postop Eval I Sum Postop Eval Completion status Anesthesia document: Postop Eval 1 completed: Yes Anesthesia Postop Eval I Summary Anesthesia Postop Eval I Summary: Anesthesia Postop Eval I: Assessment Summary Airway patent Yes 06/23/24 17:21 BOX COVERING MACHINE OPERATOR.INGALOU Spontaneous unlabored Yes 06/23/24 17:21 BOX COVERING MACHINE OPERATOR.AN respirations Mental status Awake,Calm 06/23/24 17:21 BOX COVERING MACHINE OPERATOR.INGALOU nausea No 06/23/24 17:21 BOX COVERING MACHINE OPERATOR.INGALOU Vomiting No 06/23/24 17:21 BOX COVERING MACHINE OPERATOR.INGALOU Anesthesia Postop Eval I: Fluid Summary Crystalloid volume administer 100 06/23/24 17:21 BOX COVERING MACHINE OPERATOR.INGALOU (ml) Colloids volume administered ( ml) Blood Product volume administered (ml) Total IV fluid infused 100 06/23/24 17:21 BOX COVERING MACHINE OPERATOR.AN Anesthesia Postop Eval I: Summary Notes Anesthesia Complication No 06/23/24 17:21 BOX COVERING MACHINE OPERATOR.AN Anesthesia Complication Comment: Post-operative progress note Anesthesia: Postop Eval II Evaluation Mental status: Awake Pain Level: 0 nausea: No Vomiting: No
--- NOTE | 2024-06-23 17:46 | PCM.POSTANE2 ---
Anesthesia Postop Eval I Sum Postop Eval Completion status Anesthesia document: Postop Eval 1 completed: Yes Anesthesia Postop Eval I Summary Anesthesia Postop Eval I Summary: Anesthesia Postop Eval I: Assessment Summary Airway patent Yes 06/23/24 17:21 MAINTENANCE SERVICE SUPERVISOR.INGALOU Spontaneous unlabored Yes 06/23/24 17:21 MAINTENANCE SERVICE SUPERVISOR.AN respirations Mental status Awake,Calm 06/23/24 17:21 MAINTENANCE SERVICE SUPERVISOR.INGALOU nausea No 06/23/24 17:21 MAINTENANCE SERVICE SUPERVISOR.INGALOU Vomiting No 06/23/24 17:21 MAINTENANCE SERVICE SUPERVISOR.INGALOU Anesthesia Postop Eval I: Fluid Summary Crystalloid volume administer 100 06/23/24 17:21 MAINTENANCE SERVICE SUPERVISOR.INGALOU (ml) Colloids volume administered ( ml) Blood Product volume administered (ml) Total IV fluid infused 100 06/23/24 17:21 MAINTENANCE SERVICE SUPERVISOR.AN Anesthesia Postop Eval I: Summary Notes Anesthesia Complication No 06/23/24 17:21 MAINTENANCE SERVICE SUPERVISOR.AN Anesthesia Complication Comment: Post-operative progress note Anesthesia: Postop Eval II Evaluation Mental status: Awake Pain Level: 0 nausea: No Vomiting: No
[2024-06-23] MEDS: Bisacodyl 5 MG Tablet 20 MG PO (20:13)
[2024-06-23] MEDS: Metoclopramide 10 MG/2 ML Vial 5 MG IV ×2 (20:13→23:48)
[2024-06-23] MEDS: Polyethylene Glycol 3350 BOWEL PREP PO (20:14)
[2024-06-23] MEDS: 0.9% Saline Lock 10 ML Syringe IV ×2 (20:14→23:49)
[2024-06-23] MEDS: Pantoprazole Sodium 40 MG in 0.9% Normal Saline (100mL MB+) 100 ML 330 MG IV (20:14)
[2024-06-23 21:55] LABS: Hematocrit 24.5 % (37-47); Hemoglobin 7.6 g/dL (12.0-15.0)
[2024-06-23] MEDS: KETOROLAC TROMETHAMINE LEFT EYE (22:50)
[2024-06-24] VITALS (20 sets, daily range): BP systolic 81–115; BP diastolic 48–77; PULSE 84–109; RESP 14–23; TEMP 36–37.1; O2SAT 92–100; BMI 41.1
--- NOTE | 2024-06-24 | IMM_PTH ---
PATIENT: CLINTON COYLE LOC: [facility] U#:[id number] AGE/SX: 73/F ROOM: [facility] RE06/23/[address]: Dr. Ang Messina DO : 1950 BED: 1 DIS: 07/02/2024 SPEC #: [id number] RECD: 06/28/24 10:25 STATUS: SOUWilma REQ #: [id number] VAHID: 06/24/24 00:[address]: Chris Nixon DEPT: IMMUNOHISTOCHEMISTRY RECD BY: Preston Madera ENTERED: 06/28/24 10:26 SP TYPE: IMMUNO OTHR DR: DO Dr. Bhaskar Barba MD Dr. Michael Bortz, MD Dr. Nicholas F Kotsonis, MD Whitney Hofstetter, KINESEOLOGIST-C Tissues: A - Colon, NOS Procedures: MSH2 (add) MLH-1 (add) MSH6 (add) Anti-PMS2 (add) KI-67 (add) P53 (add) MOC-31 (add) HER-2-KRISTIE (initial) Comments: @ Ordering doctor for HER2 edited from to @ by JALIL at 06/28/24 1026 @ Ordering doctor for MSH2. edited from to @ by JALIL at 06/28/24 1026 @ Ordering doctor for MLH1. edited from to @ by JALIL at 06/28/24 1026 @ Ordering doctor for MSH6. edited from to @ by JALIL at 06/28/24 1026 @ Ordering doctor for PMS2. edited from to @ by JALIL at 06/28/24 1026 @ Ordering doctor for KI67. edited from to @ by JALIL at 06/28/24 1026 @ Ordering doctor for P53. edited from to @ by JALIL at 06/28/24 1026 @ Ordering doctor for MOC31 edited from to @ by JALIL at 06/28/24 1026 @ Submitting doctor edited from to @ by JALIL at 06/28/24 1026 PHYSICIAN & [place] [id number] SPECIMEN INFORMATION: Tissue Source: A- Colonic mass Clinical Info: Acute blood loss anemia secondary to GI bleed Specimen Number: [id number] CPT code: 82749,57233a9 METHODOLOGY: Deparaffinized sections of prefer/formalin-fixed tissue or PAP/DQ stained slides are incubated with monoclonal/polyclonal antibodies/oligonucleotide probes. Localization is made via biotin free immunoperoxidase method. Appropriate controls are performed and reacted as expected. Results on target cell population are indicated in the following table: RESULTS: ANTIBODY / CLONE RESULT Block A Her-2neu (CB11) 2+ (equivocal) MOC-31 (4561) positive MLH-1 (M1) equivocal MSH2 (25D12) positive MSH6 (44) positive PMS2 (SFO2116) positive Ki-67 (30-9) positive, high P53 (DO-7) positive, indeterminate pattern These tests were developed and their performance characteristics determined by [facility]. They may not have been cleared or approved by the U.S. Food and Drug Administration. The FDA has determined that such clearance or approval is not necessary. The above immunohistochemical/dualISH markers are ordered and reviewed by the Pathologist. INTERPRETATION: A. Colonic mass, biopsy: Invasive adenocarcinoma. Results of microsatellite instability: Indeterminate. Case has been reviewed in consultation with Dr. Soto who concurs with the above diagnosis. IDC:BENJI Morrison 06/29/2024 ADDENDUM ADDENDUM ADDENDUM ADDENDUM ADDENDUM ADDENDUM ADDENDUM ADDENDUM ADDENDUM ADDENDUM ADDENDUM ADDENDUM ADDENDUM ADDENDUM ADDENDUM ADDENDUM ADDENDUM ADDENDUM ADDENDUM ADDENDUM ADDENDUM 07/01/2024 13:53 ADDENDUM 07/01/2024 13:53 ADDENDUM 07/01/2024 13:53 ADDENDUM 07/01/2024 13:53 ADDENDUM 07/01/2024 13:53 IN SITU HYBRIDIZATION (ANNETTA) FOR HER2 Interpretation: Not Amplified / NEGATIVE HER2 : CEP-17 Ratio: 1.1 Average HER2 Signal: 1.95 Average CEP-17 Signal: 1.85 Number of Tumor Cells Scanned: 50 Interpretative Information: The INFORM HER2 Dual ANNETTA DNA Probe Cocktail assay is performed on formalin-fixed paraffin embedded tissue and determines HER2 gene status by detecting HER2 copies via silver in situ hybridization (SISH) and Chromosome 17 copies via chromogenic red in situ hybridization on tumor cells. A minimum of 20 cells representing > 10% of contiguous and homogeneous invasive tumor cells were analyzed. HER2 gene status is classified as Non-amplified (HER2/Chr17 ratio < 2.0) or Amplified (HER2/Chr17 ratio greater than or equal to 2.0). If the resulting HER2/Chr17 ratio falls within 1.8 - 2.2 (Borderline), retesting by FISH is recommended. Reference: Delon AC, Ulysses JENNINGSH, Lynda DG, et al: Recommendations for Human Epidermal Growth Factor Receptor 2 Testing in Breast Cancer: [place] [employer] / College of [place] Clinical Practice Guideline Update. J Clin Oncol 31:9492-5965, 2013.
[2024-06-24] MEDS: 0.9% Saline Lock 10 ML Syringe IV ×4 (01:48→17:42)
[2024-06-24] MEDS: Ondansetron 4 MG/2 ML Vial IV (01:48)
[2024-06-24 04:22] LABS: Absolute Lymphocyte Count 0.74 X10^3/uL (0.83-4.51); Absolute Neutrophil Count 8.7 X10^3/uL (2.0-7.7); Basophil# 0.05 X10^3/uL; Basophil% 0.5 % (0-1); Eosinophil# 0.24 X10^3/uL; Eosinophils% 2.3 % (0-5); Hematocrit 24.3 % (37-47); Hemoglobin 7.4 g/dL (12.0-15.0); Lymphocyte # 0.74 X10^3/ul (0.83-4.51); Mean Corp Hgb Conc 30.5 g/dL (32-36); Mean Corpuscular Hgb 28.1 pg (27.0-32.0); Mean Corpuscular Volume 92.4 fL (81-99); Mean Platelet Vol. 10.5 fl (6.2-12.0); Monocyte# 0.87 X10^3/uL; Monocyte% 8.2 % (0-10); NRBC Flagged by Analyzer 0 % (0-5); Neutrophil # 8.66 X10^3/uL (2.7-7.7); Neutrophil % 81.4 % (47-70); POSITIVE MORPHOLOGY YES; Platelet Count 289 K/mm3 (150-450); RBC Distribution Width CV 23.8 % (11.6-14.6); RBC Distribution Width SD 80.3 fl (35.1-43.9); Red Blood Count 2.63 M/mm3 (4.2-5.4); White Blood Count 10.6 K/mm3 (4.4-11.0)
[2024-06-24 04:35] LABS: Anion Gap 5 (5-15); BUN 27 mg/dL (7-18); Calcium,Total 8.5 mg/dL (8.5-10.1); Chloride 101 mmol/L (98-107); Creatinine, Serum 2.99 mg/dL (0.55-1.02); EST Glomerular Filtration Rate 16 mL/min (>60); Est Glom Filt Rate - Afr Amer 20 mL/min (>60); Estimated Creatinine Clearance 19.54 ml/min; Glucose 127 mg/dL (74-106); Potassium 3.3 mmol/L (3.5-5.1); Sodium Level 137 mmol/L (136-145)
[2024-06-24 05:06] LABS: Differential Indicated SCAN CRITERIA MET
[2024-06-24 05:29] LABS: Differential Comment SCANNED
[2024-06-24] MEDS: Metoclopramide 10 MG/2 ML Vial 5 MG IV ×2 (06:11→17:42)
[2024-06-24 09:23] LABS: Vitamin B12 425 pg/mL (211-911)
[2024-06-24 09:24] LABS: Ferritin 973 ng/mL (8-252); Iron 92 ug/dL (50-170); Iron Binding Capacity,Total 229 ug/dL (250-450); PERCENT IRON SATURATION 40.2 % (15.0-55.0)
[2024-06-24] MEDS: KETOROLAC TROMETHAMINE LEFT EYE ×3 (10:20→21:45)
[2024-06-24] MEDS: Pantoprazole Sodium 40 MG in 0.9% Normal Saline (100mL MB+) 100 ML 330 MG IV ×2 (10:20→21:46)
[2024-06-24] MEDS: CHLORHEXIDINE GLUC 2% CLOTH 1 EACH TOWELETTE TOPICAL (10:21)
--- NOTE | 2024-06-24 10:48 | CASEMGMT ---
Addendum entered by Rosemary Heaton 06/24/24 13:51: HHC list provided to the pt at this time for review Original Note: RN CM Assessment Face to Face with patient for initial transition planning/care coordination assessment. RN CM introduced self and role at [facility], pt voices understanding. Pt is A&Ox4 and is resting comfortably in the chair and is calm. Care providers, pharmacy, and demographics verified. Admitting dx: GI Bleed LACE Strata: 2 PCP: Nolvia Deleon Specialists: Pt states that she sees a world geography teacher and sheet metal pattern cutter through the CC but cannot recall their names. Dr. Putnam (Nephro) is consulted during stay Preferred Pharmacy: [facility] Insurance: [employer], [employer] Prescription Benefit: Yes LNOK: Dylon Heaton (H), Reji Heaton (Son) Living Arrangements: Pt lives with her in a single story home with a basement and 3 steps to enter the home with handrails ADLs/IADLs: States ind at BL Transportation: Self, DME: Home oxygen through [facility] in [place]. Pt current order confirmed states 3L continuous and 3L @ HS bleed into BiPAP. Pt is currently saturating fine on RA. Pt states to this RN CM that she only wears oxygen @ HS through her BiPAP (3L). Pt states that she has a concentrator, portable tank, and pulse ox. Pt also reports that she has a working BGM and supplies, BP Monitor, Cane, FWW, and grab bars. HHC/SNF: states HHC History x 3 years ago at [facility] and was set up with HHC after. Pt does not recall the name of the HH agency HD: Pt attends OP HD at [facility] in [place] q MWF from 9:30a-1p. Pt?s goal: Home with HHC Plan: Pt states that she would like HHC and not OP Tx. Pt educated about homebound status and states that she is agreeable and understands. Pt educated that this RN CM will provide the pt with a list of local in network HHC agencies to choose from. Pt states that she would prefer to have SN, PT, & OT added to the referral. Pt denies further questions or concerns at this time. CM to follow. Deandre Heaton RN, CM
--- NOTE | 2024-06-24 11:09 | CASEMGMT ---
Discharge Planning A list of HH providers including quality and resource use data and consistent with the patient's preferred geographic region, medical needs, and insurance network was created in [employer] Guide.? This list was provided to the RN SAKSHI. Charis Crooks, Discharge Planning Asst.
--- NOTE | 2024-06-24 11:14 | PCM.CONS.R ---
Assessment & Plan Assessment/Plan (1) ESRD (end stage renal disease): (2) Anemia due to acute blood loss: PLAN: Plan This is a pleasant 73-year-old female with past medical history significant for ESRD who currently dialyzes Friday schedule at [facility] kidney center in [place] under the direction of Dr. Trinh who was encouraged to go to the emergency room yesterday as she was noted to have a significant drop in her hemoglobin from labs drawn at the kidney center. Patient did complete her entire dialysis session yesterday at the kidney center. There is no acute indication for ORDER ENTRY CLERK today, bicarb normal, potassium low normal, patient is on RA and appears near euvolemic. Per patient report her dry weight is 100.5 kg. Weight this morning 101.3 kg. Patient is scheduled for colonoscopy this afternoon. She underwent EGD yesterday: normal esophagus, no lesions. Hemoglobin has improved with PRBC. Patient is on Protonix drip. Eliquis on hold. We will plan for dialysis tomorrow and attempt fluid removal aiming to near EDW. Labs ordered for morning. Further orders forthcoming as hospitalization evolves, thank you for allowing us to participate in the care of this Sudarshan. HPI Consult Data Date of Consult: 06/24/24 HPI Narrative HPI Narrative: CLINTON COYLE, is a 73 F with past medical history significant for ESRD on hemodialysis Friday at [facility] in [place] followed by Dr. Trinh who presented to the emergency room yesterday under the direction from his geothermal operating engineer as patient was noted to have a significant drop in her hemoglobin. Patient was found to have a hemoglobin of 5.7 with the ER labs. Patient was recently started on Eliquis few weeks ago for A-fib. Patient was admitted for further evaluation and treatment. She has had few units of PRBC. Hemoglobin this morning is 7.4. Patient did have a EGD yesterday and is scheduled for colonoscopy this afternoon. Nephrology consulted as patient has history of ESRD and for dialysis management. Patient reports she feels better today. Denies any shortness of breath or chest pain. Patient reports she did not notice any blood in her stool recently however she does take Velphoro binder which in turn makes stool darkish in color. [facility] Medical History Hypercalcemia Wears glasses History of steroid therapy Walker as ambulation aid Diabetes History of renal dialysis History of renal disease Anemia Dietary restriction History of diverticulitis Former smoker BiPAP (biphasic positive airway pressure) dependence Sleep apnea Shortness of breath on exertion History of edema History of echocardiogram Cardiology follow-up encounter History of irregular heartbeat Heart disease Bone spur Low blood pressure Acute renal failure (ARF) Home Medications ?Medication ?Instructions ?Recorded ?Last Taken ?Type aspirin 81 mg tablet,delayed 81 mg PO DAILY 05/17/21 Unknown History release bisoprolol fumarate 5 mg tablet 2.5 mg PO SUTUTHSA BP 05/17/21 Unknown History sitagliptin phosphate 25 mg tablet 25 mg PO DAILY 05/17/21 Unknown History (Januvia) vitamin B complex-vitamin C-folic 1 tab PO DAILY 05/17/21 Unknown History acid 0.8 mg tablet (Renal Vitamin) brimonidine 0.1 % eye drops 1 drp RIGHT EYE BID 05/31/21 Unknown History (Alphagan P) fluorometholone 0.1 % eye 1 drp EACH EYE QODAY 05/31/21 Unknown History drops,suspension vitamin B complex and vitamin C 1 cap PO DAILY 05/31/21 Unknown History no.20-folic acid 1 mg capsule (Virt-Caps) cefuroxime axetil 500 mg tablet ea PO 05/28/22 Unknown History Allergy/AdvReac Type Severity Reaction Status Date / Time ibuprofen Allergy Mild PT UNSURE Verified 06/23/24 14:17 OF REACTION Phenylpiperazine Allergy NEEDS Verified 06/23/24 14:17 Antidepressant FOLLOW-UP Tetracyclic Antidepressants Allergy NEEDS Verified 06/23/24 14:17 FOLLOW-UP Tricyclic Antidepressants Allergy NEEDS Verified 06/23/24 14:17 and Tricy FOLLOW-UP Family History Father Diabetes Heart disease Mother Heart disease Surgical History History of arteriovenostomy for renal dialysis S/P cardiac pacemaker procedure S/P laparoscopic cholecystectomy Social History household members: spouse Smoking Status: Former smoker alcohol intake: never ROS ROS Narrative As in HPI and past medical history Physical Exam Narrative Alert oriented x 3, no apparent stress S1, S2, RRR Lung sounds clear anteriorly and posteriorly. On room air Abdomen soft, nontender Trace edema bilateral legs. BARBRA hose on Right forearm AV graft positive thrill and bruit Lab / Micro Data 06/24/24 04:15 06/24/24 04:15 Labs: Laboratory Results - last 24 hr 06/23/24 14:37: WBC 7.8, RBC 1.84 L, Hgb 5.7 L*, Hct 18.4 L, MCV 100.0 H, MCH 31.0, MCHC 31.0 L, RDW Std Deviation 58.7 H, RDW Coeff of Ernie 16.1 H, Plt Count 308, MPV 10.8, Immature Gran % (Auto) 0.600, Neut % (Auto) 74.3 H, Lymph % (Auto) 11.7 L, Concho % (Auto) 8.9, Eos % (Auto) 4.0, Baso % (Auto) 0.5, Absolute Neuts (auto) 5.8, Absolute Lymphs (auto) 0.91, Nucleated RBC % 0, Differential Comment SCANNED, Diff Path Review May foll, Polychromasia RARE, Hypochromasia 1+, Anisocytosis 2+, Sodium 139, Potassium 3.0 L, Chloride 100, Carbon Dioxide 30.0, Anion Gap 9, BUN 18, Creatinine 2.32 H, Estim Creat Clear Calc 25.18, Est GFR (MDRD) Af Amer 27 L, Est GFR (MDRD) Non-Af 22 L, BUN/Creatinine Ratio 7.8 L, Glucose 144 H, Lactic Acid 1.6, Calcium 8.1 L, Blood Type O POSITIVE, Antibody Screen NEGATIVE, Crossmatch See Detail 06/23/24 21:44: Hgb 7.6 L, Hct 24.5 L 06/24/24 04:15: WBC 10.6, RBC 2.63 L, Hgb 7.4 L, Hct 24.3 L, MCV 92.4 D, MCH 28.1, MCHC 30.5 L, RDW Std Deviation 80.3 H, RDW Coeff of Ernie 23.8 H, Plt Count 289, MPV 10.5, Immature Gran % (Auto) 0.600, Neut % (Auto) 81.4 H, Lymph % (Auto) 7.0 L, Concho % (Auto) 8.2, Eos % (Auto) 2.3, Baso % (Auto) 0.5, Absolute Neuts (auto) 8.7 H, Absolute Lymphs (auto) 0.74 L, Nucleated RBC % 0, Differential Comment SCANNED, Sodium 137, Potassium 3.3 L, Chloride 101, Carbon Dioxide 31.0, Anion Gap 5, BUN 27 H, Creatinine 2.99 H, Estim Creat Clear Calc 19.54, Est GFR (MDRD) Af Amer 20 L, Est GFR (MDRD) Non-Af 16 L, BUN/Creatinine Ratio 9.0 L, Glucose 127 H, Calcium 8.5 06/24/24 08:30: Iron 92, TIBC 229 L, Iron Saturation 40.2, Ferritin 973 H, Vitamin B12 425, Folate 11.70 Micro: Microbiology 06/23/24 14:56 Stool Stool Occult Blood (JAZMÍN) - Final Imaging Radiology Impression Chest X-Ray 06/23/24 12:55 IMPRESSION: Borderline cardiomegaly. Vascular congestion and a mild degree of CHF. Electronically Signed: Louis Serrano MD at 15:12 EDT ,
--- NOTE | 2024-06-24 12:00 | COLBX_PTH ---
PATIENT: CLINTON COYLE LOC: [facility] U#:[id number] AGE/SX: 73/F ROOM: [facility] RE06/23/[address]: Dr. Ang Messina DO : 1950 BED: 1 DIS: 07/02/2024 SPEC #: [id number] RECD: 06/24/24 17:48 STATUS: VILMA REQ #: [id number] VAHID: 06/24/24 12:[address]: Chris Nxion DEPT: SURGICAL PATHOLOGY RECD BY: Lucita Quinones ENTERED: 06/25/24 07:42 SP TYPE: COLON BX OTHR DR: DO Dr. Bhaskar Barba MD Dr. Michael Bortz, MD Dr. Nicholas F Kotsonis, MD Dr. Rahsaan Friend, DO Whitney Hofstetter, NP-C Tissues: A - COLON BIOPSY B - Sigmoid colon biopsy Procedures: Surgery Specimen Level IV Comments: @ Ordering doctor for [facility] edited from to @ bonny JIMENES at 06/28/24 1025 @ Submitting doctor edited from to @ bonny JIMENES at 06/28/24 1025 HEADER OPERATION: Colonoscopy PRE-OP DIAGNOSIS: Acute blood loss anemia secondary to GI bleed TISSUE SUBMITTED: A- Colonic mass, B- Sigmoid colon polyp MICROSCOPIC DIAGNOSIS A. Colonic mass, biopsy: Invasive well differentiated adenocarcinoma. See comment. B. Sigmoid colon polyp, biopsy: Tubular adenoma. 06/28/2024 COMMENT A. Immunohistochemistry ([id number]) for MSI (microsatellite instability) is being performed and results will be reported separately. Case has been reviewed in consultation with Dr. Soto who concurs with the above diagnosis. IDC:AM MICROSCOPIC DESCRIPTION Slides are reviewed. GROSS DESCRIPTION A. Received in fixative is one container labeled with the patient's name and designated Colonic mass. The specimen consists of multiple irregular fragments of light correa soft tissue that in aggregate measure 2.0 x 0.5 x 0.1 cm. The specimen is totally submitted in one cassette. B. Received in fixative is one container labeled with the patient's name and designated Sigmoid colon polyp. The specimen consists of one irregular fragment of light correa soft tissue that measures 0.4 x 0.3 x 0.1 cm. The specimen is totally submitted in one cassette. SJ.mr 06/25/2024 TC:0 CPT:10218d4
--- NOTE | 2024-06-24 12:11 | ANES.CONFIRM ---
Anesthesia: Confirm Documents Multiple Procedures on Account (2) Confirmed Documents: Yes
--- NOTE | 2024-06-24 12:11 | ANES.CONFIRM ---
Anesthesia: Confirm Documents Multiple Procedures on Account (2) Confirmed Documents: Yes
--- NOTE | 2024-06-24 12:11 | ANES.CONFIRM ---
Anesthesia: Confirm Documents Multiple Procedures on Account (2) Confirmed Documents: Yes
--- NOTE | 2024-06-24 12:12 | ANES.CONFIRM ---
Anesthesia: Confirm Documents Multiple Procedures on Account (2) Confirmed Documents: Yes
--- NOTE | 2024-06-24 13:36 | PCM.PN.HOSP ---
Reason for Visit Reason for Visit: Diagnoses Acute posthemorrhagic anemia (06/23/24) Anemia, unspecified (06/23/24) Subjective Subjective No acute events overnight. Saw patient at bedside's morning. Patient was sitting up comfortably in bedside chair, conversing normally, no acute distress. She had tolerated the colonoscopy prep fairly well overnight, though she had needed a few enemas this morning as her stool still was not clear. She otherwise denied any new concerns today. Objective Data Objective Data Vital Signs: Vital Signs Temp Pulse Resp BP Pulse Ox O2 Del Method O2 Flow Rate 97.0 F L 105 H 19 H 115/61 93 Room Air 2 06/24/24 11:00 06/24/24 11:00 06/24/24 11:00 06/24/24 11:00 06/24/24 11:00 06/24/24 11:00 06/24/24 08:00 Oxygen Flow Rate (L/min) 2 Oxygen Delivery Method Room Air Weight: 101.3 kg Body Mass Index (BMI) 41.1 Intake & Output: Intake and Output for Last 24 Hours 06/22/24 06/23/24 06/24/24 23:59 23:59 23:59 Intake Total 1004.33 / 1004.33 110 / 110 Output Total 0 / 0 Balance 1004.33 / 1004.33 110 / 110 Lab / Micro Data 06/24/24 04:15 06/24/24 04:15 Labs: Laboratory Results - last 24 hr 06/23/24 14:37: WBC 7.8, RBC 1.84 L, Hgb 5.7 L*, Hct 18.4 L, MCV 100.0 H, MCH 31.0, MCHC 31.0 L, RDW Std Deviation 58.7 H, RDW Coeff of Ernie 16.1 H, Plt Count 308, MPV 10.8, Immature Gran % (Auto) 0.600, Neut % (Auto) 74.3 H, Lymph % (Auto) 11.7 L, Dade % (Auto) 8.9, Eos % (Auto) 4.0, Baso % (Auto) 0.5, Absolute Neuts (auto) 5.8, Absolute Lymphs (auto) 0.91, Nucleated RBC % 0, Differential Comment SCANNED, Diff Path Review May foll, Polychromasia RARE, Hypochromasia 1+, Anisocytosis 2+, Sodium 139, Potassium 3.0 L, Chloride 100, Carbon Dioxide 30.0, Anion Gap 9, BUN 18, Creatinine 2.32 H, Estim Creat Clear Calc 25.18, Est GFR (MDRD) Af Amer 27 L, Est GFR (MDRD) Non-Af 22 L, BUN/Creatinine Ratio 7.8 L, Glucose 144 H, Lactic Acid 1.6, Calcium 8.1 L, Blood Type O POSITIVE, Antibody Screen NEGATIVE, Crossmatch See Detail 06/23/24 21:44: Hgb 7.6 L, Hct 24.5 L 06/24/24 04:15: WBC 10.6, RBC 2.63 L, Hgb 7.4 L, Hct 24.3 L, MCV 92.4 D, MCH 28.1, MCHC 30.5 L, RDW Std Deviation 80.3 H, RDW Coeff of Ernie 23.8 H, Plt Count 289, MPV 10.5, Immature Gran % (Auto) 0.600, Neut % (Auto) 81.4 H, Lymph % (Auto) 7.0 L, Dade % (Auto) 8.2, Eos % (Auto) 2.3, Baso % (Auto) 0.5, Absolute Neuts (auto) 8.7 H, Absolute Lymphs (auto) 0.74 L, Nucleated RBC % 0, Differential Comment SCANNED, Sodium 137, Potassium 3.3 L, Chloride 101, Carbon Dioxide 31.0, Anion Gap 5, BUN 27 H, Creatinine 2.99 H, Estim Creat Clear Calc 19.54, Est GFR (MDRD) Af Amer 20 L, Est GFR (MDRD) Non-Af 16 L, BUN/Creatinine Ratio 9.0 L, Glucose 127 H, Calcium 8.5 06/24/24 08:30: Iron 92, TIBC 229 L, Iron Saturation 40.2, Ferritin 973 H, Vitamin B12 425, Folate 11.70 Micro: Microbiology 06/23/24 14:56 Stool Stool Occult Blood (JAZMÍN) - Final Radiography Diagnostic Testing: Radiology Impression Chest X-Ray 06/23/24 12:55 IMPRESSION: Borderline cardiomegaly. Vascular congestion and a mild degree of CHF. Electronically Signed: Louis Serrano MD at 15:12 EDT , Physical Exam Const alert, oriented x3 and no apparent distress Constitutional Narrative: Elderly female, morbidly obese, otherwise sitting up comfortably in bed, conversing normally, in no acute distress. Good energy level. General Appearance: cooperative and comfortable HEENT normocephalic, head/scalp atraumatic, hearing grossly normal bilaterally, nasal mucous membranes and turbinates normal and moist oral mucous membranes Eyes PERRL, EOMs intact bilaterally and conjunctivae normal Neck full ROM Chest inspection of chest normal Resp normal respiratory effort, normal air movement, no use of accessory muscles and clear to auscultation bilaterally Cardio regular rate, regular rhythm, no murmurs and peripheral pulses 2+ throughout GI normal to inspection, nondistended, normoactive bowel sounds, soft to palpation, non-tender and non-distended Back/Spine normal ROM Extremity normal to inspection and no pedal edema Skin no rashes or lesions noted Neuro no focal motor deficits and no sensory deficits noted Speech: speech normal Psych mental status grossly normal Assessment & Plan Assessment/Plan (1) Anemia due to acute blood loss: (2) Acute gastrointestinal bleeding: (3) ESRD (end stage renal disease): PLAN: Plan Patient is a 73-year-old female who presented [facility] ED on 06/23/2024 from dialysis with worsening anemia. 1. Acute blood loss anemia secondary to GI bleed ? GI following. Hemoglobin 5.7 on admit. Prior baseline hemoglobin around 9-10. Presumed secondary to occult GI bleed in setting of patient starting Eliquis for new onset A-fib about 2 weeks prior to this admission. S/p 2 units of packed red blood cells on admit with repeat hemoglobin 7.6. EGD on 06/23 was unremarkable. Colonoscopy to be done today, will follow-up on results. Given patient is ESRD, is presumed that she has some degree of platelet dysfunction and was more susceptible to a GI bleed on Eliquis; will plan to start a baby aspirin on discharge and patient can follow-up with cardiology in the office for further discussion regarding anticoagulation going forward. Continue IV PPI twice daily for now, can likely de-escalate to p.o. PPI tomorrow. Monitor CBC daily. 2. Paroxysmal A-fib on Eliquis ? Reportedly diagnosed about 2 weeks prior to this admission. Has been either in sinus tachycardia or normal sinus rhythm since admission on telemetry. Holding Eliquis and we will plan to continue holding Eliquis and start baby aspirin on discharge as noted above. No need for rate controlling agent at this time. 3. ESRD on HD ? Nephrology following. On HD MWF, continuing to schedule while inpatient. 4. Restrictive lung disease ? Reported history but we have no notes in our system regarding this. Has been stable on room air since admission. Continue outpatient follow-up. Chronic medical conditions: ? Morbid obesity: BMI 40 on admit. Complicates hospital course, care and prognosis. ? GERD: Continue IV PPI twice daily as noted above for now. ? Type 2 diabetes mellitus: On home sitagliptin. Blood sugars have been stable since admission, no need for sliding scale insulin. DVT prophylaxis: SCDs CODE STATUS: Full code, verified Expected disposition: Home, 1 to 2 days Total clinical time spent by myself addressing the patient's medical issues, reviewing all the data, and collaborating with patient's care team: 35 minutes. Charges/Coding Visit Charges Inpatient E&M: 79897 Subs Hosp L2
[2024-06-24] MEDS: 0.9% Normal Saline (500mL Bag) 500 ML 15 ML IV (14:18)
--- NOTE | 2024-06-24 14:28 | PCM.PRE.AN2 ---
ASA Classification* ASA Classification ASA Classification: 3 Assessment & Plan Anesthesia* Anesthesia Assessment Anesthesia Assessment: Discussed sedation and/or anesthesia options, risks, benefits, and alternatives with patient/parents/legal guardian/POA. Questions invited. The patient/parents/legal guardian/POA seems to understand and agrees to proceed with anesthesia plan. Reviewed the physical assessment, medical history, allergy history and patient home medications list prior to surgery/procedure/anesthetic and documented any changes. Performed airway and anesthesia risk assessments. Anesthesia Type Anesthesia Type: MAC History Source History Obtained from:: Patient and Chart Anesthesia Focused Assessment* Temperature: 97.0 F Pulse Rate: 105 Blood Pressure: 115/61 Respiratory Rate: 19 Pulse Ox: 93 Oxygen Delivery Method: Room Air Airway Assessment Mouth opens: 2 cm Mallampati Score: IV Teeth Condition: Caps/Crowns (Patient has crowns. They are all tight.) and Missing Neck Range of motion (ROM): Limited ROM (Decreased extension) Comment: Patient is missing #7 tooth on top. Focused Labs Anesthesia Preop lab: CBC WBC 10.6 K/mm3 (4.4-11.0) 06/24/24 04:15 RBC 2.63 M/mm3 (4.2-5.4) L 06/24/24 04:15 Hgb 7.4 g/dL (12.0-15.0) L 06/24/24 04:15 Hct 24.3 % (37-47) L 06/24/24 04:15 Plt Count 289 K/mm3 (150-450) 06/24/24 04:15 CHEMISTRY Potassium 3.3 mmol/L (3.5-5.1) L 06/24/24 04:15 Sodium 137 mmol/L (136-145) 06/24/24 04:15 BUN 27 mg/dL (7-18) H 06/24/24 04:15 Creatinine 2.99 mg/dL (0.55-1.02) H 06/24/24 04:15 Glucose 127 mg/dL (74-106) H 06/24/24 04:15 POC Glucose 114 mg/dL (70-110) H 06/25/21 10:12 COAG Pre-Assessment Diagnosis/Proposed Procedure Planned Operative Procedure(s): Colonoscopy Anesthesia History 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 When Was Last Pacemaker Check QUESTION #4 FULL TEXT: You/Your Family Experience fever (hyperthermia) with Anesthesia Last Oral Intake Last Oral intake: Last Oral Intake NPO since 00:00 06/23/24 16:38 Meds taken in AM with sips of water? Meds patient instructed to take am of surgery PONV PONV - timber buyer: PONV - timber buyer Female HX of Motion Sickness HX of N/V After Surgery Non-Smoker Duration of Surgery greater than 60 minutes Number of Risk Factors PONV Score Height & Weight Height & Weight: Anesthesia: Height & Weight Height 5 ft 2 in 06/24/24 09:44 Weight: 101.3 kg 06/24/24 11:16 Body Mass Index (BMI) 41.1 06/24/24 11:16 Respiratory Assessment Respiratory Assessment - timber buyer: Respiratory Tract Infection Hx - timber buyer Hx Respiratory Tract Infection No 05/31/21 14:21 STOP Sleep Apnea STOP Sleep Apnea - timber buyer: STOP Sleep Apnea - timber buyer Hx Hypertension Yes: LOW BP 06/23/24 18:44 Hx Sleep Apnea Yes 06/23/24 18:44 CPAP No 06/23/24 18:44 BIPAP Yes 06/23/24 18:44 Do you snore loudly (louder than talking or can be heard Do you often feel tired/ fatigued/ sleepy during daytime? Has anyone observed you stop breathing during sleep? STOP Results Positive 06/23/24 18:44 QUESTION #5 FULL TEXT : Do you snore loudly (louder than talking or can be heard through closed doors)? 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 Specify any problems Hx of Preganancy in last 3 N/A 06/23/24 18:44 Months Nurse Filling Out Transfusion [facility] 06/23/24 18:44 & Questions: Date: 06/23/24 06/23/24 18:44 Time: 18:52 06/23/24 18:44 Patient unable to answer at this time (ie. confused, unrespo /Reproduction History /Reproductive History - timber buyer: /Reproductive Hx- timber buyer Hx Now Gestational Age (in weeks): EDC: Hx Hx Para Hx Section SAB Active Medications Active Medications: Current Medications Generic Name Dose Route Start Last Admin Trade Name Freq PRN Reason Stop Dose Admin Chlorhexidine Gluconate 1 each 06/24/24 10:00 06/24/24 10:21 Chlorhexidine Gluc 2% Cloth 1 Each [place] TOPICAL 1 each DAILY SIMONE Administration Pantoprazole Sodium 40 mg/ 110 mls @ 330 mls/hr 06/23/24 22:00 06/24/24 10:40 Sodium Chloride IV Infused Q12 SIMONE Infusion Sodium Chloride 250 mls @ 15 mls/hr 06/23/24 18:45 IV .[id number] PRN Additional IVPB Infusion Sodium Chloride 250 mls @ 15 mls/hr 06/23/24 18:45 IV .[id number] PRN Saline Flush Sodium Chloride 500 mls @ 0 mls/hr 06/24/24 14:15 06/24/24 14:18 IV 15 mls/hr .Q0M SIMONE Administration KVO Ketorolac Tromethamine 1 ml 06/23/24 22:00 06/24/24 10:20 Ketorolac Tromethamine 10 Ml Drops LEFT EYE 1 ml 4X/DAY SIMONE Administration Metoclopramide HCl 5 mg 06/23/24 19:00 06/24/24 13:02 Metoclopramide 10 Mg/2 Ml Vial IV Not Given Q6 SIMONE Ondansetron HCl 4 mg 06/23/24 18:43 06/24/24 01:48 Ondansetron 4 Mg/2 Ml Vial IV 4 mg Q8H PRN PRN Administration NAUSEA/VOMITING Sodium Chloride 10 - 40 ml 06/23/24 18:45 06/24/24 10:20 0.9% Saline Lock 10 Ml Syringe IV 20 ml UD PRN Administration SALINE FLUSH PFSH Medical History Hypercalcemia Wears glasses History of steroid therapy Walker as ambulation aid Diabetes History of renal dialysis History of renal disease Anemia Dietary restriction History of diverticulitis Former smoker BiPAP (biphasic positive airway pressure) dependence Sleep apnea Shortness of breath on exertion History of edema History of echocardiogram Cardiology follow-up encounter History of irregular heartbeat Heart disease Bone spur Low blood pressure Acute renal failure (ARF) Home Medications ?Medication ?Instructions ?Recorded ?Last Taken ?Type bisoprolol fumarate 5 mg tablet 2.5 mg PO MOWEFR BP 05/17/21 Unknown History sitagliptin phosphate 25 mg tablet 25 mg PO DAILY diabetes 05/17/21 Unknown History (Januvia) vitamin B complex-vitamin C-folic 1 tab PO DAILY Vitamin 05/17/21 Unknown History acid 0.8 mg tablet (Renal Vitamin) brimonidine 0.1 % eye drops 1 drp RIGHT EYE BID glaucoma 05/31/21 Unknown History (Alphagan P) fluorometholone 0.1 % eye 1 drp EACH EYE QODAY eye drop 05/31/21 Unknown History drops,suspension apixaban 5 mg tablet (Eliquis) 5 mg PO BID blood thinner/afib 06/24/24 Unknown History famotidine 20 mg tablet 20 mg PO QHS GERD 06/24/24 Unknown History ketorolac 0.5 % eye drops 1 drp ophthalmic (eye) 4X/DAY 06/24/24 Unknown History cataract surgery prednisone 2.5 mg tablet 2.5 mg PO DAILY steroid 06/24/24 Unknown History sucroferric oxyhydroxide 500 mg 500 mg PO TIDCM Kidneys 06/24/24 Unknown History chewable tablet (Velphoro) Allergy/AdvReac Type Severity Reaction Status Date / Time ibuprofen Allergy Mild PT UNSURE Verified 06/23/24 14:17 OF REACTION Phenylpiperazine Allergy NEEDS Verified 06/23/24 14:17 Antidepressant FOLLOW-UP Tetracyclic Antidepressants Allergy NEEDS Verified 06/23/24 14:17 FOLLOW-UP Tricyclic Antidepressants Allergy NEEDS Verified 06/23/24 14:17 and Tricy FOLLOW-UP Family History Father Diabetes Heart disease Mother Heart disease Surgical History History of arteriovenostomy for renal dialysis S/P cardiac pacemaker procedure S/P laparoscopic cholecystectomy Social History household members: spouse Smoking Status: Former smoker alcohol intake: never Review of Systems (Anesthesia) ROS Narrative System reviewed and no additional complaints, except as documented.
--- NOTE | 2024-06-24 16:36 | OP.COLON_ITS ---
Patient Name: Cindy Heaton Procedure Date: 06/24/2024 12:24 PM Date of : 1950 Age: 73 Procedure: Colonoscopy Indications: Iron deficiency anemia, Unexplained iron deficiency anemia Providers: Chris Nixon DO Referring MD: Chris Nixon DO Medicines: Monitored Anesthesia Care Patient Profile: This is a 73 year old female. Refer to note in patient chart for documentation of history and physical. Last Colonoscopy: none. The patient's first colonoscopy is today. Complications: No immediate complications. Procedure: Pre-Anesthesia Assessment: - Prior to the procedure, a History and Physical was performed, and patient medications and allergies were reviewed. The patient is competent. The risks and benefits of the procedure and the sedation options and risks were discussed with the patient. All questions were answered and informed consent was obtained. Patient identification and proposed procedure were verified by the physician in the pre-procedure area. Mental Status Examination: alert and oriented. Airway Examination: normal oropharyngeal airway and neck mobility. Respiratory Examination: clear to auscultation. CV Examination: normal. Prophylactic Antibiotics: The patient does not require prophylactic antibiotics. Prior Anticoagulants: The patient has taken no anticoagulant or antiplatelet agents. ASA Grade Assessment: III - A patient with severe systemic disease. After reviewing the risks and benefits, the patient was deemed in satisfactory condition to undergo the procedure. The anesthesia plan was to use monitored anesthesia care (MAC). Immediately prior to administration of medications, the patient was re-assessed for adequacy to receive sedatives. The heart rate, respiratory rate, oxygen saturations, blood pressure, adequacy of pulmonary ventilation, and response to care were monitored throughout the procedure. The physical status of the patient was re-assessed after the procedure. After I obtained informed consent, the scope was passed under direct vision. Throughout the procedure, the patient's blood pressure, pulse, and oxygen saturations were monitored continuously. The Colonoscope was introduced through the anus and advanced to the cecum, identified by appendiceal orifice and ileocecal valve. The colonoscopy was performed without difficulty. The patient tolerated the procedure well. The quality of the bowel preparation was fair. The ileocecal valve, appendiceal orifice, and rectum were photographed. Scope In: 3:53:34 PM Scope Withdrawal Time 0 hours 24 minutes 31 seconds Scope Out: 4:25:49 PM Total Procedure Duration Time 0 hours 32 minutes 15 seconds Findings: The perianal and digital rectal examinations were normal. A few small-mouthed diverticula were found in the recto-sigmoid colon and sigmoid colon. A 5 mm polyp was found in the sigmoid colon. The polyp was sessile. The polyp was removed with a cold snare. Resection and retrieval were complete. Verification of patient identification for the specimen was done. Estimated blood loss was minimal. A single medium-sized localized angiodysplastic lesion with bleeding was found in the recto-sigmoid colon. For hemostasis, one hemostatic clip was successfully placed. 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 There was no bleeding at the end of the procedure. An ulcerated non-obstructing large mass was found in the ascending colon. The mass was non-circumferential. The mass measured three cm in length. In addition, its diameter measured five mm. Oozing was present. This was biopsied with a cold forceps for histology. Verification of patient identification for the specimen was done. Estimated blood loss was minimal. An ulcerated non-obstructing large mass was found in the ascending colon. The mass was non-circumferential. Area was tattooed with an injection of 1 mL of Nury ink. Stool was found in the rectum, in the sigmoid colon, in the descending colon and in the cecum. Impression: - Preparation of the colon was fair. - Diverticulosis in the recto-sigmoid colon and in the sigmoid colon. - One 5 mm polyp in the sigmoid colon, removed with a cold snare. Resected and retrieved. - A single bleeding colonic angiodysplastic lesion. Clip was placed. 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 - Rule out malignancy, tumor in the ascending colon. Biopsied. - Rule out malignancy, tumor in the ascending colon. Tattooed. - Stool in the rectum, in the sigmoid colon, in the descending colon and in the cecum. Recommendation: - Return patient to hospital fair for ongoing care. - Full liquid diet today. - Continue present medications. - Await pathology results. - Repeat colonoscopy is recommended for surveillance. The colonoscopy date will be determined after pathology results from today's exam become available for review. Procedure Code(s): --- Professional --- 21543, 59, Colonoscopy, flexible; with control of bleeding, any method 89930, Colonoscopy, flexible; with removal of tumor(s), polyp(s), or other lesion(s) by snare technique 19918, 59, Colonoscopy, flexible; with biopsy, single or multiple 24901, 59, Colonoscopy, flexible; with directed submucosal injection(s), any substance CPT copyright 2021 [employer]. All rights reserved. The codes documented in this report are preliminary and upon artificial candy maker review may be revised to meet current compliance requirements. Chris Nixon DO 06/24/2024 4:36:17 PM This report has been signed electronically. Number of Addenda: 0 Note Initiated On: 06/24/2024 12:24 PM
--- NOTE | 2024-06-24 16:36 | OP.CCLET_ITS ---
06/24/2024 Shey Juarez Re : Colonoscopy procedure for Cindy Heaton Dear Pancho This procedure was performed on June. My impressions and recommendations are as follows: Impressions : - Preparation of the colon was fair. - Diverticulosis in the recto-sigmoid colon and in the sigmoid colon. - One 5 mm polyp in the sigmoid colon, removed with a cold snare. Resected and retrieved. - A single bleeding colonic angiodysplastic lesion. Clip was placed. 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 - Rule out malignancy, tumor in the ascending colon. Biopsied. - Rule out malignancy, tumor in the ascending colon. Tattooed. - Stool in the rectum, in the sigmoid colon, in the descending colon and in the cecum. Recommendations : - Return patient to hospital fair for ongoing care. - Full liquid diet today. - Continue present medications. - Await pathology results. - Repeat colonoscopy is recommended for surveillance. The colonoscopy date will be determined after pathology results from today's exam become available for review. My findings are described in the full procedure note, which is enclosed. If I can be of further assistance, please feel free to contact me at . Sincerely, Chris Nixon, 06/24/2024 4:36:17 PM This report has been signed electronically.
--- NOTE | 2024-06-24 16:39 | PCM.POST.ANE ---
Anesthesia: Postop Eval I Current Vital Signs Temperature: 97.5 F Pulse Rate: 90 Blood Pressure: 101/49 Respiratory Rate: 18 Pulse Ox: 96 Oxygen Delivery Method: Room Air Assessment Airway patent: Yes Spontaneous unlabored respirations: Yes Mental status: Awake and Calm nausea: No Vomiting: No Anesthesia Complication: No Fluid Hydration Crystalloid volume administer (ml): 200 Total IV fluid infused: 200 Progress Note Anesthesia document: Postop Eval 1 completed: Yes
--- NOTE | 2024-06-24 16:56 | ANES.CONF2 ---
Anesthesia: Confirm Documents Multiple Procedures on Account (3) Confirmed Documents: Yes
--- NOTE | 2024-06-24 17:01 | PCM.POST.ANE ---
Anesthesia: Postop Eval I Current Vital Signs Temperature: 97.9 F Pulse Rate: 101 Blood Pressure: 97/57 Respiratory Rate: 16 Pulse Ox: 97 Assessment Airway patent: Yes Spontaneous unlabored respirations: Yes nausea: No Vomiting: No Anesthesia Complication: No Fluid Hydration Crystalloid volume administer (ml): 1,000 Total IV fluid infused: 1,000 Progress Note Anesthesia document: Postop Eval 1 completed: Yes
--- NOTE | 2024-06-24 17:30 | CT_ITS ---
STUDY: CT CHEST, ABDOMEN T PELVIS WITH CONTRAST REASON FOR EXAM: Female, 73 years old. colon cancer RADIATION DOSAGE (If Supplied By Facility): CTDIvol = ( 25.50 ) mGy, DLP = ( 2145.17 ) mGycm TECHNIQUE: Transaxial imaging was performed following intravenous administration of IV 100mL Isovue-370. The protocol utilizes one or more of the following dose reduction techniques: automated exposure control, adjustment of mA and/or kV according to patient size,and/or use of iterative reconstruction technique. COMPARISON: FINDINGS: CHEST The lungs are normal. There is no demonstrated pleural abnormality. Mild cardiomegaly. Calcifications in the mediastinum and left hilar region. Normal unenhanced pulmonary arteries. Normal aorta arch and descending thoracic aorta. Degenerative vertebral changes. ABDOMEN Normal liver. Normal gallbladder and extrahepatic biliary system. Granulomatous calcific foci in the spleen. Normal pancreas. Normal bilateral adrenal glands. Cortical thinning of the kidneys with bilateral nonobstructive calculi, up to 3 mm. Right renal cysts. Normal visualized stomach. Normal small intestine. Normal colon. The appendix is nonvisualized. Normal abdominal aorta. Normal inferior vena cava. Normal retroperitoneum. Normal abdominal wall. Degenerative vertebral changes. PELVIS Normal urinary bladder. There is no pelvic fluid. There is no pelvic lymphadenopathy or mass lesion. Normal visualized pelvic arteries. CT/CT Chest, Abd, Pel w/Contrast IMPRESSION: Cortical thinning of the kidneys with bilateral nonobstructive calculi, up to 3 mm. Right renal cysts. Electronically Signed: John Lovell DO at 18:41 EDT ,
--- NOTE | 2024-06-24 18:54 | EX.PCM.CON.S ---
Assessment & Plan Assessment/Plan (1) Colonic mass: PLAN: Patient is a 73-year-old female with some recent diagnosis of a ascending colon mass related to a workup for acute blood loss anemia. She has no prior history of colonoscopy, but has been symptomatic from her anemia over the last couple weeks. Her presenting hemoglobin was 5.7, but her recently started Eliquis was held and her hemoglobin has been stable now status post 2 units PRBCs. I have reviewed patient's endoscopy images and confirmed that, grossly, she appears to have a malignancy of the ascending colon that is bleeding. Given the stability of her hemoglobin I shared that it is my hope that this is only bleeding intermittently and the anemia only became significant because of the concurrent use of Eliquis. If patient's hemoglobin has proven to be stable I would like to await finalization of her pathology from today's scope as well as completion of her staging workup with CT imaging of the chest abdomen pelvis that was just completed. I would then propose a follow-up sometime next week in our outpatient clinic to confirm details around a planned laparoscopic right hemicolectomy. This intent was shared with patient and her and they appear to be in agreement. However, I did stress that I would like to see her laboratories and other clinical data stable across another 24 hours before we plan for these outpatient arrangements. Therefore, I have recommended that she remain on a clear liquid diet tonight and we will recheck her labs in the morning. Agree with gastroenterology's intent to transfuse patient during plan dialysis tomorrow as this should give her some cushion until we are able to proceed with scheduling her colectomy. Amadeo Manzanares MD General Surgery Endocrine Surgery Pager: [facility] [address] [place] [address], [facility], [address] [place] [id number] Office: [phone] HPI Consult Data Date of Consult: 06/24/24 HPI Narrative Reason for Consultation: Bleeding ascending colon mass HPI Narrative: CLINTON COYLE, is a 73 F who presented to [facility] directly from dialysis where she had been diagnosed with profound anemia on 06/23/2024. Gastroenterology was consulted emergently and patient underwent EGD same day that was negative. With this negative result patient was prepped and underwent colonoscopy earlier today. At that endoscopy session gastroenterology identified a bleeding, malignant?appearing ascending colon mass. This was biopsied and tattooed. Surgery was notified following the procedure. Notably, patient was transfused 2 units PRBCs after initial diagnosis of anemia and was stable with respect to her hemoglobin this morning. Patient shares that she began feeling weak approximately 2 weeks ago after being initiated on Eliquis for new diagnosis of atrial fibrillation. She also describes some associated lightheadedness but was unsure how much significance to draw from the symptoms that she occasionally feels this way after dialysis. She also describes some increased frequency with her bowel habits, but denies any recognition of dark or bloody stools (she admits to taking a supplement that turns her stools black). Patient has a history of ESRD related to past medical history of hypertension and diabetes. She began dialysis 3 years ago via a upper extremity AV graft. She additionally has a history of a pacemaker implantation and a laparoscopic cholecystectomy. [facility] Medical History Hypercalcemia Wears glasses History of steroid therapy Walker as ambulation aid Diabetes History of renal dialysis History of renal disease Anemia Dietary restriction History of diverticulitis Former smoker BiPAP (biphasic positive airway pressure) dependence Sleep apnea Shortness of breath on exertion History of edema History of echocardiogram Cardiology follow-up encounter History of irregular heartbeat Heart disease Bone spur Low blood pressure Acute renal failure (ARF) Home Medications ?Medication ?Instructions ?Recorded ?Last Taken ?Type bisoprolol fumarate 5 mg tablet 2.5 mg PO MOWEFRSA BP 05/17/21 Unknown History sitagliptin phosphate 25 mg tablet 25 mg PO DAILY diabetes 05/17/21 Unknown History (Januvia) vitamin B complex-vitamin C-folic 1 tab PO DAILY Vitamin 05/17/21 Unknown History acid 0.8 mg tablet (Renal Vitamin) brimonidine 0.1 % eye drops 1 drp RIGHT EYE BID glaucoma 05/31/21 Unknown History (Alphagan P) fluorometholone 0.1 % eye 1 drp EACH EYE QODAY eye drop 05/31/21 Unknown History drops,suspension apixaban 5 mg tablet (Eliquis) 5 mg PO BID blood thinner/afib 06/24/24 Unknown History famotidine 20 mg tablet 20 mg PO QHS GERD 06/24/24 Unknown History ketorolac 0.5 % eye drops 1 drp ophthalmic (eye) 4X/DAY 06/24/24 Unknown History cataract surgery prednisone 2.5 mg tablet 2.5 mg PO DAILY steroid 06/24/24 Unknown History sucroferric oxyhydroxide 500 mg 500 mg PO TIDCM Kidneys 06/24/24 Unknown History chewable tablet (Velphoro) Allergy/AdvReac Type Severity Reaction Status Date / Time ibuprofen Allergy Mild PT UNSURE Verified 06/23/24 14:17 OF REACTION Phenylpiperazine Allergy NEEDS Verified 06/23/24 14:17 Antidepressant FOLLOW-UP Tetracyclic Antidepressants Allergy NEEDS Verified 06/23/24 14:17 FOLLOW-UP Tricyclic Antidepressants Allergy NEEDS Verified 06/23/24 14:17 and Tricy FOLLOW-UP Family History Father Diabetes Heart disease Mother Heart disease Surgical History History of arteriovenostomy for renal dialysis S/P cardiac pacemaker procedure S/P laparoscopic cholecystectomy Social History household members: spouse Smoking Status: Former smoker alcohol intake: never Physical Exam Const alert, oriented x3 and no apparent distress General Appearance: cooperative Nutritional Appearance: obese Resp normal respiratory effort Resp Narrative: Nasal cannula in place but patient's effort appears normal GI GI Narrative: Well-healed laparoscopic scars, no visible herniation, obese, soft, nondistended, nontender to palpation x 4 quadrants Lab / Micro Data 06/24/24 04:15 06/24/24 04:15 Labs: Laboratory Results - last 24 hr 06/23/24 14:37: Crossmatch See Detail 06/23/24 21:44: Hgb 7.6 L, Hct 24.5 L 06/24/24 04:15: WBC 10.6, RBC 2.63 L, Hgb 7.4 L, Hct 24.3 L, MCV 92.4 D, MCH 28.1, MCHC 30.5 L, RDW Std Deviation 80.3 H, RDW Coeff of Ernie 23.8 H, Plt Count 289, MPV 10.5, Immature Gran % (Auto) 0.600, Neut % (Auto) 81.4 H, Lymph % (Auto) 7.0 L, [place] % (Auto) 8.2, Eos % (Auto) 2.3, Baso % (Auto) 0.5, Absolute Neuts (auto) 8.7 H, Absolute Lymphs (auto) 0.74 L, Nucleated RBC % 0, Differential Comment SCANNED, Sodium 137, Potassium 3.3 L, Chloride 101, Carbon Dioxide 31.0, Anion Gap 5, BUN 27 H, Creatinine 2.99 H, Estim Creat Clear Calc 19.54, Est GFR (MDRD) Af Amer 20 L, Est GFR (MDRD) Non-Af 16 L, BUN/Creatinine Ratio 9.0 L, Glucose 127 H, Calcium 8.5 06/24/24 08:30: Iron 92, TIBC 229 L, Iron Saturation 40.2, Ferritin 973 H, Vitamin B12 425, Folate 11.70 Micro: Microbiology 06/23/24 14:56 Stool Stool Occult Blood (JAZMÍN) - Final Imaging Radiology Impression Chest/Abdomen/Pelvis CT 06/24/24 17:30 IMPRESSION: Cortical thinning of the kidneys with bilateral nonobstructive calculi, up to 3 mm. Right renal cysts. Electronically Signed: John Lovell DO at 18:41 EDT Reading Location ID and State: [facility] / [place] Tel [phone], Service support , Charges/Coding Visit Charges Inpatient E&M: 13561 Init Hosp L2
--- NOTE | 2024-06-24 22:41 | NURSING ---
2240- pt placed on home bipap
--- NOTE | 2024-06-24 23:53 | CPS ---
Patient placed on own PAP machine for the night with 4 bleed.
[2024-06-25] VITALS (37 sets, daily range): BP systolic 65–677; BP diastolic 44–109; PULSE 83–110; RESP 12–24; TEMP 36.2–36.6; O2SAT 93–100; BMI 41.2; BMI 41.0; BMI 40.7
[2024-06-25 03:19] LABS: Hematocrit 20.4 % (37-47); Hemoglobin 6.1 g/dL (12.0-15.0); Mean Corp Hgb Conc 29.9 g/dL (32-36); Mean Corpuscular Hgb 28.4 pg (27.0-32.0); Mean Corpuscular Volume 94.9 fL (81-99); Mean Platelet Vol. 10.4 fl (6.2-12.0); POSITIVE MORPHOLOGY YES; Platelet Count 234 K/mm3 (150-450); RBC Distribution Width CV 23.3 % (11.6-14.6); RBC Distribution Width SD 80.3 fl (35.1-43.9); Red Blood Count 2.15 M/mm3 (4.2-5.4)
[2024-06-25 03:22] LABS: Scan Indicated on CBC? Y/N YES- FLAGS NOTED
[2024-06-25 03:36] LABS: Anion Gap 7 (5-15); BUN 34 mg/dL (7-18); Calcium,Total 8.3 mg/dL (8.5-10.1); Chloride 100 mmol/L (98-107); Creatinine, Serum 4.23 mg/dL (0.55-1.02); EST Glomerular Filtration Rate 11 mL/min (>60); Est Glom Filt Rate - Afr Amer 13 mL/min (>60); Estimated Creatinine Clearance 13.43 ml/min; Glucose 154 mg/dL (74-106); Potassium 3.8 mmol/L (3.5-5.1); Sodium Level 135 mmol/L (136-145)
[2024-06-25 03:41] LABS: Differential Comment SCANNED
[2024-06-25 08:57] LABS: Pathologist Review Reviewed
[2024-06-25] MEDS: 0.9% Normal Saline 1,000 ML IV.SOLN. 1000 ML OPERA.SITE (08:58)
--- NOTE | 2024-06-25 08:58 | PCM.PN.SRG ---
Subjective Subjective Patient seen and examined during AM rounds. She shares she rested okay overnight and denies any abdominal discomfort this morning. She also denies any stool output overnight. Lastly she denies any weakness or lightheadedness this morning. Objective Data Objective Data Vital Signs: Vital Signs Temp Pulse Resp BP Pulse Ox O2 Del Method O2 Flow Rate 97.2 F L 90 20 H 116/55 L 94 Nasal Cannula 2 06/25/24 08:42 06/25/24 08:45 06/25/24 08:45 06/25/24 08:45 06/25/24 08:45 06/25/24 08:45 06/25/24 08:45 Oxygen Flow Rate (L/min) 2 Oxygen Delivery Method Nasal Cannula Weight: 224 lb 3.362 oz Body Mass Index (BMI) 41.2 Intake & Output: Intake and Output for Last 24 Hours 06/23/24 06/24/24 06/25/24 23:59 23:59 23:59 Intake Total 1004.33 / 1004.33 460 / 460 Output Total 0 Balance 1004.33 / 1004.33 460 / 440 -20 / 20 Lab / Micro Data 06/25/24 03:12 06/25/24 03:12 Labs: Laboratory Results - last 24 hr 06/23/24 14:37: Diff Path Review Reviewed 06/24/24 08:30: Iron 92, TIBC 229 L, Iron Saturation 40.2, Ferritin 973 H, Vitamin B12 425, Folate 11.70 06/25/24 03:12: WBC 10.0, RBC 2.15 L, Hgb 6.1 L, Hct 20.4 L, MCV 94.9, MCH 28.4, MCHC 29.9 L, RDW Std Deviation 80.3 H, RDW Coeff of Ernie 23.3 H, Plt Count 234, MPV 10.4, Differential Comment SCANNED, Sodium 135 L, Potassium 3.8, Chloride 100, Carbon Dioxide 28.0, Anion Gap 7, BUN 34 H, Creatinine 4.23 H, Estim Creat Clear Calc 13.43, Est GFR (MDRD) Af Amer 13 L, Est GFR (MDRD) Non-Af 11 L, BUN/Creatinine Ratio 8.0 L, Glucose 154 H, Calcium 8.3 L Micro: Microbiology 06/23/24 14:56 Stool Stool Occult Blood (JAZMÍN) - Final Radiography Diagnostic Testing: Radiology Impression Chest/Abdomen/Pelvis CT 06/24/24 17:30 IMPRESSION: Cortical thinning of the kidneys with bilateral nonobstructive calculi, up to 3 mm. Right renal cysts. Electronically Signed: John Lovell DO at 18:41 EDT Reading Location ID and State: [facility] / [place] Tel [phone], Service support , Physical Exam Const oriented x3 and no apparent distress Resp normal respiratory effort GI GI Narrative: Mild distention, soft, nontender to palpation x 4 quadrants Assessment & Plan Assessment/Plan (1) Colonic mass: PLAN: Patient is a 73-year-old female with some recent diagnosis of a ascending colon mass related to a workup for acute blood loss anemia. She was seen in initial consultation yesterday following colonoscopy with GI. We had hoped to pursue an outpatient course of treatment for Mrs. Heaton, however, this morning her hemoglobin dropped to 6. With this instability I cannot recommend further delay in a resection for her as I would be concerned she would require serial transfusions which beyond their inherent risk for transfusion?related reactions have also been shown to promote tumor growth. Fortunately patient has been just on clear liquids overnight so we will assume an n.p.o. status. She is pending dialysis this morning. Plans are to transfuse 2 units as part of her dialysis infusion and then I have recommended proceeding this afternoon for laparoscopic right hemicolectomy. She has been counseled that situations may arise that occasion the need to proceed with exploratory laparotomy and even colostomy creation, however, this would not be the original intent. Patient should be consented accordingly and preoperative antibiotics have been ordered. Clinical management discussed with both patient's primary team and gastroenterology. Amadeo Manzanares MD General Surgery Endocrine Surgery Pager: [facility] [place] [address] [place] [address], [address] [place] [phone] Office: [phone] Charges/Coding Visit Charges Inpatient E&M: 91799 Subs Hosp L2
[2024-06-25] MEDS: PureFlow B 3K Dialysis Soln 1 BAG 6 BAG PF (08:59)
--- NOTE | 2024-06-25 09:06 | CASEMGMT ---
[facility]/25/24 15:33: [facility] states that the pt PCP is leaving practice next week. [facility] states that the MD taking over for the pt will not be seeing the pt until 07/13. The company states that the pt PCP office states that the pt could see Dr. Kristin Martinez or Dr. Lowe at that practice and to have us let them know what the pt is wanting to do. However, the pt is currently in surgery for a hemicolectomy and we are unable to establish this at this time. [facility] updated. Will follow. Addendum [facility] 06/25/24 12:47: [facility] and [facility] have accepted the pt. ROXANE CANTOR to pt room at this time. Pt states that [facility] has been in contact with the pt already and the pt would prefer to go through their services. [facility] and [facility] updated via [facility]. Addendum [facility] 06/25/24 09:54: Dr. Messina states that the pt will be here through the weekend as she is planned for a hemicolectomy today. Addendum entered by [facility] 06/25/24 09:29: Per the pt RN, the pt is getting surgery today and may be here through the weekend. Pt states that she has been with [facility] in [place] in the past. This RN CM educated the pt that they only offer PT and OT and not SN. Pt would benefit from SN at home. Pt states that she would like SN as well. At this time, the pt states that she does not have a preference on which [facility] company sees her after DC. CHAI Vizcaino conservation assistant, notified and to make referrals once able. This RN SAKSHI will consult with Dr. Messina to see when the projected DC date is. Original Note: ROXANE CANTOR to pt room at this time to f/u on the HH choices. At this time, the pt states that she has not selected any choices and states that there is a company that she was seen by in the past and would prefer to use them again. Pt states that her friend may know the agency and states that she is going to contact her friend to try to figure out the agency. Pt is also concerned about her insurance helping to cover the hospital stay. Pt advised to call her insurance company to inquire about this. Pt states that she would still like to talk to someone here about it. E-Mail sent to the Alley Worker (Jen) to see if she would be able to assist the pt. Will follow.
--- NOTE | 2024-06-25 10:13 | CASEMGMT ---
Discharge Planning HH [facility] and [facility]. Charis Crooks DC Planning Asst.
[2024-06-25] MEDS: KETOROLAC TROMETHAMINE LEFT EYE ×2 (10:34→20:31)
[2024-06-25] MEDS: Acetaminophen 325 MG Tablet 650 MG PO ×2 (10:34→21:43)
[2024-06-25] MEDS: Pantoprazole Sodium 40 MG Tablet PO (10:34)
[2024-06-25] MEDS: CHLORHEXIDINE GLUC 2% CLOTH 1 EACH TOWELETTE TOPICAL (11:16)
--- NOTE | 2024-06-25 11:23 | PN.RENAL_ITS ---
Subjective Subjective Seen and examined on dialysis today. No overnight events. Denies any complaints. Tolerating fluid removal with dialysis today. at bedside. Objective Data Objective Data Vital Signs: Vital Signs Temp Pulse Resp BP Pulse Ox O2 Del Method O2 Flow Rate 98 F 83 16 120/58 L 99 Nasal Cannula 2 06/25/24 11:21 06/25/24 11:21 06/25/24 11:21 06/25/24 11:21 06/25/24 11:21 06/25/24 11:21 06/25/24 11:21 Oxygen Flow Rate (L/min) 2 Oxygen Delivery Method Nasal Cannula Weight: 101.7 kg Body Mass Index (BMI) 41.2 Intake & Output: Intake and Output for Last 24 Hours 06/23/24 06/24/24 06/25/24 23:59 23:59 23:59 Intake Total 1004.33 / 1004.33 460 / 460 / Output Total 0 20 / Balance 1004.33 / 1004.33 460 / 440 -19 / -19 Lab / Micro Data 06/25/24 03:12 06/25/24 03:12 Labs: Laboratory Results - last 24 hr 06/23/24 14:37: Diff Path Review Reviewed, Crossmatch See Detail 06/25/24 03:12: WBC 10.0, RBC 2.15 L, Hgb 6.1 L, Hct 20.4 L, MCV 94.9, MCH 28.4, MCHC 29.9 L, RDW Std Deviation 80.3 H, RDW Coeff of Ernie 23.3 H, Plt Count 234, MPV 10.4, Differential Comment SCANNED, Sodium 135 L, Potassium 3.8, Chloride 100, Carbon Dioxide 28.0, Anion Gap 7, BUN 34 H, Creatinine 4.23 H, Estim Creat Clear Calc 13.43, Est GFR (MDRD) Af Amer 13 L, Est GFR (MDRD) Non-Af 11 L, B UN/Creatinine Ratio 8.0 L, Glucose 154 H, Calcium 8.3 L Micro: Microbiology 06/23/24 14:56 Stool Stool Occult Blood (JAZMÍN) - Final Radiography Diagnostic Testing: Radiology Impression Chest/Abdomen/Pelvis CT 06/24/24 17:30 IMPRESSION: Cortical thinning of the kidneys with bilateral nonobstructive calculi, up to 3 mm. Right renal cysts. Electronically Signed: John Lovell, at 18:41 EDT , Physical Exam Narrative Alert oriented x 3, no apparent stress S1, S2, RRR Lung sounds clear anteriorly and posteriorly. On room air Abdomen soft, nontender ++edema bilateral legs Right forearm AV graft accessed for hemodialysis Assessment & Plan Assessment/Plan (1) ESRD (end stage renal disease): (2) Anemia due to acute blood loss: PLAN: Plan - ESRD; dialyzes Friday schedule at [facility] [place] in [place] under the direction of Dr. Trinh. To undergo dialysis today on 3K bath BFR 350 over 4 hours and attempt around 2 to 3 L fluid removal as patient/blood pressure dry weights. Dry weight is 100.5 kg. Weight this morning 101.7 kg. Patient will have new lowered to EDW by time of hospital discharge. Patient reports blood pressures have been low at the kidney center and has used midodrine as needed. Will order midodrine to be used as needed during dialysis. - acute anemia. Normal EGD. Colonoscopy: Colon mass. Surgery team consulted. Patient planned to undergo laparoscopic right hemicolectomy this afternoon. Eliquis remains on hold. Hemoglobin dropped to 6.1 this morning, patient is receiving another 2 units PRBC during dialysis today. -Hyperphosphatemia; patient takes Velphoro 1 tablet with meals. Continue holding Velphoro for now. Patient has been NPO.
--- NOTE | 2024-06-25 11:26 | PCM.PN.HOSP ---
Reason for Visit Reason for Visit: Diagnoses Acute posthemorrhagic anemia (06/23/24) Anemia, unspecified (06/23/24) Other specified diseases of intestine (06/23/24) Gastrointestinal hemorrhage, unspecified (06/23/24) End stage renal disease (06/23/24) Subjective Subjective Saw patient at bedside this morning. Patient had been seen by general surgery this morning and was agreeable to going to surgery this afternoon for hemicolectomy. She was having dialysis run when I saw her. She had good level of energy and appeared similar to yesterday despite her hemoglobin dropping to 6.1 this morning. She denied any acute pain or discomfort. No other new concerns today. Objective Data Objective Data Vital Signs: Vital Signs Temp Pulse Resp BP Pulse Ox O2 Del Method O2 Flow Rate 98 F 83 16 120/58 L 99 Nasal Cannula 2 06/25/24 11:21 06/25/24 11:21 06/25/24 11:21 06/25/24 11:21 06/25/24 11:21 06/25/24 11:21 06/25/24 11:21 Oxygen Flow Rate (L/min) 2 Oxygen Delivery Method Nasal Cannula Weight: 101.7 kg Body Mass Index (BMI) 41.2 Intake & Output: Intake and Output for Last 24 Hours 06/23/24 06/24/24 06/25/24 23:59 23:59 23:59 Intake Total 1004.33 / 1004.33 460 / 460 1 / 1 Output Total 0 Balance 1004.33 / 1004.33 460 / 440 -19 / -19 Lab / Micro Data 06/25/24 03:12 06/25/24 03:12 Labs: Laboratory Results - last 24 hr 06/23/24 14:37: Diff Path Review Reviewed, Crossmatch See Detail 06/25/24 03:12: WBC 10.0, RBC 2.15 L, Hgb 6.1 L, Hct 20.4 L, MCV 94.9, MCH 28.4, MCHC 29.9 L, RDW Std Deviation 80.3 H, RDW Coeff of Ernie 23.3 H, Plt Count 234, MPV 10.4, Differential Comment SCANNED, Sodium 135 L, Potassium 3.8, Chloride 100, Carbon Dioxide 28.0, Anion Gap 7, BUN 34 H, Creatinine 4.23 H, Estim Creat Clear Calc 13.43, Est GFR (MDRD) Af Amer 13 L, Est GFR (MDRD) Non-Af 11 L, BUN/Creatinine Ratio 8.0 L, Glucose 154 H, Calcium 8.3 L Micro: Microbiology 06/23/24 14:56 Stool Stool Occult Blood (JAZMÍN) - Final Radiography Diagnostic Testing: Radiology Impression Chest/Abdomen/Pelvis CT 06/24/24 17:30 IMPRESSION: Cortical thinning of the kidneys with bilateral nonobstructive calculi, up to 3 mm. Right renal cysts. Electronically Signed: John Lovell DO at 18:41 EDT , Physical Exam Const alert, oriented x3 and no apparent distress Constitutional Narrative: Elderly female, morbidly obese, otherwise sitting up comfortably in bed, conversing normally, in no acute distress. Good energy level. Stable. General Appearance: cooperative and comfortable HEENT normocephalic, head/scalp atraumatic, hearing grossly normal bilaterally, nasal mucous membranes and turbinates normal and moist oral mucous membranes Eyes PERRL, EOMs intact bilaterally and conjunctivae normal Neck full ROM Chest inspection of chest normal Resp normal respiratory effort, normal air movement, no use of accessory muscles and clear to auscultation bilaterally Cardio regular rate, regular rhythm, no murmurs and peripheral pulses 2+ throughout GI normal to inspection, nondistended, normoactive bowel sounds, soft to palpation, non-tender and non-distended Back/Spine normal ROM Extremity normal to inspection and no pedal edema Skin no rashes or lesions noted Neuro no focal motor deficits and no sensory deficits noted Speech: speech normal Psych mental status grossly normal Assessment & Plan Assessment/Plan (1) Anemia due to acute blood loss: (2) Acute gastrointestinal bleeding: (3) ESRD (end stage renal disease): PLAN: Plan Patient is a 73-year-old female who presented [facility] ED on 06/23/2024 from dialysis with worsening anemia. 1. Acute blood loss anemia secondary to lower GI bleed from right-sided colonic mass ? GI and general surgery following. Hemoglobin 5.7 on admit. Prior baseline hemoglobin around 9-10. Improved to 7.6 after 2 units of packed red blood cells given on admission. EGD unremarkable on 06/23. Colonoscopy on 06/24 showed an ascending colonic mass highly concerning for malignancy. CT chest abdomen pelvis showed no evidence of mets. Hemoglobin dropped to 6.1 again on 06/25, given 2 units of packed red blood cells during HD session. Surgery planning for hemicolectomy this afternoon, will follow-up on result. Continue to monitor CBC daily and transfuse for hemoglobin less than 7. De-escalated to p.o. PPI daily on 06/25. Holding Eliquis. 2. Paroxysmal A-fib on Eliquis ? Reportedly diagnosed about 2 weeks prior to this admission. Has been either in sinus tachycardia or normal sinus rhythm since admission on telemetry. Holding Eliquis given ongoing GI bleed from colonic mass and plan for surgical intervention. Will determine need for anticoagulation prior to discharge. No need for rate controlling agent at this time. 3. ESRD on HD ? Nephrology following. On HD MWF, continuing this schedule while inpatient. 4. Restrictive lung disease ? Reported history but we have no notes in our system regarding this. Has been stable on room air since admission. Continue outpatient follow-up. Chronic medical conditions: ? Morbid obesity: BMI 40 on admit. Complicates hospital course, care and prognosis. ? GERD: De-escalated to p.o. PPI daily on 06/25, will continue this for now. ? Type 2 diabetes mellitus: On home sitagliptin. Blood sugars have been stable since admission, no need for sliding scale insulin. DVT prophylaxis: SCDs CODE STATUS: Full code, verified Expected disposition: Home, TBD Total clinical time spent by myself addressing the patient's medical issues, reviewing all the data, and collaborating with patient's care team: 35 minutes. Charges/Coding Visit Charges Inpatient E&M: 09626 Subs Hosp L2
[2024-06-25] MEDS: Metoclopramide 10 MG/2 ML Vial 5 MG IV ×2 (12:16→23:42)
[2024-06-25] MEDS: 0.9% Saline Lock 10 ML Syringe IV (12:16)
--- NOTE | 2024-06-25 13:05 | COL._PTH ---
PATIENT: CLINTON COYLE [place] [facility] [place] U#:[id number] AGE/SX: 73/F ROOM: [facility] RE06/23/[address]: Dr. Ang Messina DO : 1950 BED: 1 DIS: 07/02/2024 SPEC #: [id number] RECD: 06/28/24 07:13 STATUS: VILMA RE #: [id number] VAHID: 06/25/24 13:[address]: Amadeo Manzanares DEPT: SURGICAL PATHOLOGY RECD BY: Gilbert Alvarado ENTERED: 06/28/24 10:29 SP TYPE: COLON OTHR DR: DO Dr. Bhaskar Barba MD Dr. Nicholas F Kotsonis, MD Dr. Rahsaan Friend, DO Whitney Hofstetter, NP-C Tissues: A - Colon, NOS B - Liver, NOS Procedures: PAS with Diastase (control) Trichrome (control) Special Stain Group I PAS Stain (control) Surgery Specimen Level V Surgery Specimen Level Retic (control) Iron Stain (control) HEADER OPERATION: Laparoscopic angelica colectomy PRE-OP DIAGNOSIS: Colonic mass, symptomatic anemia TISSUE SUBMITTED: A- Right colon, B- Liver biopsy MICROSCOPIC DIAGNOSIS A. 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 Benign lymph nodes with extensive non-necrotizing granulomas. See cancer summary in the comment section. B. Liver, core biopsy: Liver parenchymal tissue with macro- and microvesicular steatosis. Increased iron (4+ in the hepatocytes). A calcified fibrous nodule (0.3cm in greatest dimension). See microscopic description and comment. STAN/ 06/30/2024 COMMENT A. COLON CANCER SUMMARY: Specimen - right colon Procedure - Right hemicolectomy Tumor site - Ascending colon Tumor size - 2.0 x 2.0 x 0.5cm Macroscopic tumor perforation - Not identified Histologic type - Adenocarcinoma with focal mucinous differentiation Histologic grade - Grade 1-2, well to moderately differentiated Microscopic tumor extension - Tumor invades muscularis propria Margins: All margins are uninvolved by invasive adenocarcinoma, high grade dysplasia, intramucosal carcinoma and adenoma. The tumor is 9.0cm away from the distal resection margin. The tumor is <0.1cm away from the overlying serosal surface. Treatment effect - No known presurgical therapy Lymphvascular invasion - Not identified Perineural invasion - Not identified Tumor deposits - None identified Type of polyp in which invasive carcinoma arose - None identified Lymph nodes: Number of lymph nodes examined - 14 Number of lymph nodes involved - 0 Distant metastasis - Not applicable Additional pathologic findings - Lymph nodes with extensive non-necrotizing granulomas. Special stains for acid fast bacilli and fungi are negative for organisms; matched controls are appropriate. Colonic and small intestinal donuts - no pathologic diagnosis. Appendix - focal fibrous luminal obliteration at the tip and focal hyperplastic changes. Ancillary studies: Immunohistochemistry for microsatellite instability ([id number] & [id number]) is being performed and results will be reported separately. COMMENT: Please make reference to previous specimen [id number] colonic mass, biopsy with diagnosis of invasive well differentiated adenocarcinoma and sigmoid colon polyp, biopsy with diagnosis of tubular adenoma. PATHOLOGIC STAGE: pT3 pN0 pMx The above summary is in compliance with [employer] ([employer]) Cancer Protocols Checklist and [place] [employer] Committee on Cancer (AJCC), Staging Manual, 8th Ed. Case has been reviewed in consultation with Dr. Soto who concurs with the above diagnosis. IDC:AM MICROSCOPIC DESCRIPTION Slides are reviewed. B. The specimen shows liver parenchymal tissue with preserved lobular architecture and a calcified fibrous nodule. Hepatocytes show macro- and microvesicular steatosis. No significant lobular inflammation is noted. Portal areas are unremarkable. Iron stains show 4+ iron in the hepatocytes. Reticulin stains highlights the preserved lobular architecture. Trichrome stain shows mild increased portal fibrosis. Bridging fibrosis or cirrhosis are not seen. PAS stain with and without diastase do not show any abnormal accumulation of protein. All stains are performed with appropriate matched controls. GROSS DESCRIPTION A. Received in fixative is one container labeled with the patient's name and designated Right colon. The specimen consists of a right hemicolectomy specimen consisting of cecum with ascending colon with attached pericolonic adipose tissue, small intestine with attached mesenteric tissue, and appendix. The cecum with ascending colon measures 18.0cm in length. Ascending colon is dialted and measures up to 6.0cm in diameter. Small intestine measures 6.0cm in length and appendix measures 2.5cm in length and 0.4cm diameter. Both resection margins are stapled. Lumen contains brownish fecal material mixed with hemorrhagic material. 9.0cm away from the distal resection margin and 4.0 cm away from the ileocecal valve and there is an ulcerated tumor mass is noted in the ascending colon measuring 2.0 x 2.0 x 0.5cm. No additional mass lesion is identified. Sections are submitted after additional fixation. Pericolonic adipose tissue is fixed and lymph node revealing solution. Serosal surface overlying the mass also shows puckering and inked black. Also present in the container are two detached piece of bowel with tissue measuring 2.0 x 1.5 x 0.7cm and 1.0 x 1.0 x 0.3cm. . 06/28/2024 Section of appendix reveal almost completely obliterated lumen. Section of the tumor reveal thickness involvement of bowel wall. No additional mucosal lesions are identified. Section of pericolonic adipose tissue reveal multiple lymph nodes. Largest lymph node measures 1.0cm in greatest dimension. [employer] sections are submitted as follows: 1- detached pieces of tissue, possible donut pieces of tissue, 2- appendix, 3- proximal and distal resection margins, 4- small and large bowel, 5- ileocecal valve and appendicular opening, 6&7- tumor, entirely submitted, 8-12- lymph nodes (cassettes 8-10- each cassette containing one lymph node), 11-12- multiple lymph nodes. . 06/29/2024 Pericolonic adipose tissue is dissection for the second time for a second look of the lymph node. More sections are submitted as follows: Cassette 13&14- pericolonic adipose tissue with possible lymph node tissue. . 06/30/2024 B. Received in fixative is one container labeled with the patient's name and designated Liver biopsy. The specimen consists of a piece of light brown tissue measuring 0.8 x 0.7 x 0.2cm. The entire specimen is submitted in one cassette. . 06/28/2024 TC:0 CPT:[id number]
--- NOTE | 2024-06-25 13:25 | NURSING ---
Patient left unit for surgery
--- NOTE | 2024-06-25 13:56 | PRE.ANES_ITS ---
ASA Classification* ASA Classification ASA Classification: 4 Assessment & Plan Anesthesia* Anesthesia Assessment Anesthesia Assessment: Discussed sedation and/or anesthesia options, risks, benefits, and alternatives with patient/parents/legal guardian/POA. Questions invited. The patient/parents/legal guardian/POA seems to understand and agrees to proceed with anesthesia plan. Reviewed the physical assessment, medical history, allergy history and patient home medications list prior to surgery/procedure/anesthetic and documented any changes. Performed airway and anesthesia risk assessments. Anesthesia Type Anesthesia Type: General (AICD, needs magnet during surgery. possible ICU motoring post op) Anesthesia Focused Assessment* Temperature: 98 F Pulse Rate: 96 Blood Pressure: 103/54 Respiratory Rate: 18 Pulse Ox: 99 Airway Assessment Mouth opens: >3 cm Mallampati Score: II Focused Labs Anesthesia Preop lab: CBC WBC 10.0 K/mm3 (4.4-11.0) 06/25/24 03:12 RBC 2.15 M/mm3 (4.2-5.4) L 06/25/24 03:12 Hgb 6.1 g/dL (12.0-15.0) L 06/25/24 03:12 Hct 20.4 % (37-47) L 06/25/24 03:12 Plt Count 234 K/mm3 (150-450) 06/25/24 03:12 CHEMISTRY Potassium 3.8 mmol/L (3.5-5.1) 06/25/24 03:12 Sodium 135 mmol/L (136-145) L 06/25/24 03:12 BUN 34 mg/dL (7-18) H 06/25/24 03:12 Creatinine 4.23 mg/dL (0.55-1.02) H 06/25/24 03:12 Glucose 154 mg/dL (74-106) H 06/25/24 03:12 POC Glucose 114 mg/dL (70-110) H 06/25/21 10:12 COAG Pre-Assessment Diagnosis/Proposed Procedure Planned Operative Procedure(s): Rt Hemicolectomy Anesthesia History 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 When Was Last Pacemaker Check 06/05/2024 06/25/24 09:12 QUESTION #4 FULL TEXT: You/Your Family Experience fever (hyperthermia) with Anesthesia Last Oral Intake Last Oral intake: Last Oral Intake NPO since 08:30 06/25/24 09:12 Meds taken in AM with sips of Yes 06/25/24 09:12 water? Meds patient instructed to Protonix, tylenol 06/25/24 09:12 take am of surgery PONV PONV - building wrecker: PONV - building wrecker Female HX of Motion Sickness HX of N/V After Surgery Non-Smoker Duration of Surgery greater than 60 minutes Number of Risk Factors PONV Score Height & Weight Height & Weight: Anesthesia: Height & Weight Height 5 ft 2 in 06/25/24 09:12 Weight: 100.5 kg 06/25/24 12:46 Body Mass Index (BMI) 40.7 06/25/24 12:46 Respiratory Assessment Respiratory Assessment - building wrecker: Respiratory Tract Infection Hx - building wrecker Hx Respiratory Tract Infection No 06/25/24 09:12 STOP Sleep Apnea STOP Sleep Apnea - building wrecker: STOP Sleep Apnea - building wrecker Hx Hypertension Yes: LOW BP 06/23/24 18:44 Hx Sleep Apnea Yes 06/23/24 18:44 CPAP No 06/24/24 16:33 BIPAP Yes 06/23/24 18:44 Do you snore loudly (louder than talking or can be heard Do you often feel tired/ fatigued/ sleepy during daytime? Has anyone observed you stop breathing during sleep? STOP Results Positive 06/24/24 16:33 QUESTION #5 FULL TEXT : Do you snore loudly (louder than talking or can be heard through closed doors)? 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 Specify any problems Hx of Preganancy in last 3 N/A 06/23/24 18:44 Months Nurse Filling Out Transfusion SOLOMON 06/23/24 18:44 & Questions: Date: 06/23/24 06/23/24 18:44 Time: 18:52 06/23/24 18:44 Patient unable to answer at this time (ie. confused, unrespo /Reproduction History /Reproductive History - building wrecker: /Reproductive Hx- building wrecker Hx Now No 06/25/24 09:12 Gestational Age (in weeks): EDC: Hx Hx Para Hx Section SAB No 06/25/24 09:12 Active Medications Active Medications: Current Medications Generic Name Dose Route Start Last Admin Trade Name Freq PRN Reason Stop Dose Admin Acetaminophen 650 mg 06/25/24 09:47 06/25/24 10:34 Acetaminophen 325 Mg Tablet PO 650 mg Q6H PRN PRN Administration Pain 1-10 or Fever Chlorhexidine Gluconate 1 each 06/24/24 10:00 06/25/24 11:16 Chlorhexidine Gluc 2% Cloth 1 Each Towelette TOPICAL 1 each DAILY SIMONE Administration Hemodialysis Solution 6 bag 06/25/24 08:30 06/25/24 08:59 Pureflow B 3k Dialysis Soln 1 Bag PF 06/25/24 20:20 6 bag UD SIMONE Administration Protocol Sodium Chloride 250 mls @ 15 mls/hr 06/23/24 18:45 IV .[id number] PRN Additional IVPB Infusion Sodium Chloride 250 mls @ 15 mls/hr 06/23/24 18:45 IV .[id number] PRN Saline Flush Sodium Chloride 500 mls @ 0 mls/hr 06/24/24 14:15 06/24/24 17:51 IV Infused .Q0M SIMONE Infusion KVO Ketorolac Tromethamine 1 ml 06/23/24 22:00 06/25/24 13:37 Ketorolac Tromethamine 10 Ml Drops LEFT EYE Not Given 4X/DAY SIMONE Metoclopramide HCl 5 mg 06/23/24 19:00 06/25/24 12:16 Metoclopramide 10 Mg/2 Ml Vial IV 5 mg Q6 SIMONE Administration Ondansetron HCl 4 mg 06/23/24 18:43 06/24/24 01:48 Ondansetron 4 Mg/2 Ml Vial IV 4 mg Q8H PRN PRN Administration NAUSEA/VOMITING Pantoprazole Sodium 40 mg 06/25/24 10:00 06/25/24 10:34 Pantoprazole Sodium 40 Mg Tablet PO 40 mg DAILY SIMONE Administration Sodium Chloride 10 - 40 ml 06/23/24 18:45 06/25/24 12:16 0.9% Saline Lock 10 Ml Syringe IV 30 ml UD PRN Administration SALINE FLUSH Sodium Chloride 1,000 ml 06/25/24 08:15 06/25/24 08:58 0.9% Normal Saline 1,000 Ml Iv.Soln. OPERA.SITE 06/25/24 20:14 1,000 ml X1 SIMONE Administration Sodium Chloride 200 ml 06/25/24 08:14 0.9% Normal Saline 1,000 Ml Iv.Soln. IV 06/25/24 20:14 X1 PRN to maintain SBP >90mmHg during Dialysis [facility] Medical History Hypercalcemia Wears glasses History of steroid therapy Walker as ambulation aid Diabetes History of renal dialysis History of renal disease Anemia Dietary restriction History of diverticulitis Former smoker BiPAP (biphasic positive airway pressure) dependence Sleep apnea Shortness of breath on exertion History of edema History of echocardiogram Cardiology follow-up encounter History of irregular heartbeat Heart disease Bone spur Low blood pressure Acute renal failure (ARF) Home Medications ?Medication ?Instructions ?Recorded ?Last Taken ?Type bisoprolol fumarate 5 mg tablet 2.5 mg PO MOWEFRSA BP 05/17/21 Unknown History sitagliptin phosphate 25 mg tablet 25 mg PO DAILY diabetes 05/17/21 Unknown History (Octdannielle) vitamin B complex-vitamin C-folic 1 tab PO DAILY Vitamin 05/17/21 Unknown History acid 0.8 mg tablet (Renal Vitamin) brimonidine 0.1 % eye drops 1 drp RIGHT EYE BID glaucoma 05/31/21 Unknown History (Alphagan P) fluorometholone 0.1 % eye 1 drp EACH EYE QODAY eye drop 05/31/21 Unknown History drops,suspension apixaban 5 mg tablet (Eliquis) 5 mg PO BID blood thinner/afib 06/24/24 Unknown History famotidine 20 mg tablet 20 mg PO QHS GERD 06/24/24 Unknown History ketorolac 0.5 % eye drops 1 drp ophthalmic (eye) 4X/DAY 06/24/24 Unknown History cataract surgery prednisone 2.5 mg tablet 2.5 mg PO DAILY steroid 06/24/24 Unknown History sucroferric oxyhydroxide 500 mg 500 mg PO TIDCM Kidneys 06/24/24 Unknown History chewable tablet (Velphoro) Allergy/AdvReac Type Severity Reaction Status Date / Time ibuprofen Allergy Mild PT UNSURE Verified 06/23/24 14:17 OF REACTION Phenylpiperazine Allergy NEEDS Verified 06/23/24 14:17 Antidepressant FOLLOW-UP Tetracyclic Antidepressants Allergy NEEDS Verified 06/23/24 14:17 FOLLOW-UP Tricyclic Antidepressants Allergy NEEDS Verified 06/23/24 14:17 and Tricy FOLLOW-UP Family History Father Diabetes Heart disease Mother Heart disease Surgical History History of arteriovenostomy for renal dialysis S/P cardiac pacemaker procedure S/P laparoscopic cholecystectomy Social History household members: spouse Smoking Status: Former smoker alcohol intake: never Review of Systems (Anesthesia) ROS Narrative System reviewed and no additional complaints, except as documented.
[2024-06-25] MEDS: Cefotetan 1 GM in 0.9% Normal Saline (50mL MB+) 50 ML IV (14:40)
[2024-06-25 15:45] LABS: Hematocrit 26.7 % (37-47); Hemoglobin 8.2 g/dL (12.0-15.0); Mean Corp Hgb Conc 30.7 g/dL (32-36); Mean Corpuscular Hgb 28.5 pg (27.0-32.0); Mean Corpuscular Volume 92.7 fL (81-99); Mean Platelet Vol. 10.4 fl (6.2-12.0); POSITIVE MORPHOLOGY YES; Platelet Count 253 K/mm3 (150-450); RBC Distribution Width CV 20.5 % (11.6-14.6); RBC Distribution Width SD 68.9 fl (35.1-43.9); Red Blood Count 2.88 M/mm3 (4.2-5.4); White Blood Count 11.9 K/mm3 (4.4-11.0)
[2024-06-25 15:50] LABS: Scan Indicated on CBC? Y/N YES- FLAGS NOTED
[2024-06-25 16:10] LABS: Differential Comment SEE COMMENTS
[2024-06-25] MEDS: BUPIVACAINE LIPOSOME/PF 20 ML VIAL OPERA.SITE (17:49)
[2024-06-25] MEDS: Bupivacaine 0.25% 30 ML Vial (17:50)
[2024-06-25] MEDS: 0.9% Normal Saline (Pres. free 10 ML Vial (17:51)
--- NOTE | 2024-06-25 18:44 | PCM.OPRPT ---
Report of Operation Date of Procedure: 06/25/24 Pre-Operative Diagnosis: Bleeding mass of ascending colon Post-Operative Diagnosis: Same Surgery/Procedure Performed:: 1. Laparoscopic right hemicolectomy 2. Transversus abdominis plane block 3. Liver biopsy from right lobe liver (segment 6) Description of Surgical Findings:: ? Clearly delineated mass by endoscopic tattoo within the region of the ascending colon ? Fatty colonic mesentery ? Nodular Liver with several minute white plaque lesions along the liver surface Surgeon: Amadeo Manzanares recreational therapy aide: Arnol Morrell Type of Anesthesia: General/Supplemental Anesthesiologist: Rogerio Martinez Specimen's removed: 1. Right colon 2. Liver biopsy (segment 6 Estimated Blood Loss (mL): 50 Description of Procedure: Operation performed for curative intent: Yes Tumor location: Ascending colon Extent of colon and vascular resection: Laparoscopic right hemicolectomy by sacrifice of ileocolic pedicle and right branch of middle colic After appropriate identification in the preoperative holding area the patient was brought to the operating room where she was positioned supine in the operating room table. There she underwent induction of general anesthesia. She was administered preoperative antibiotics. A Ledesma catheter was then placed for decompression of the bladder. Anesthesia placed a orogastric tube for gastric decompression. A formal timeout was conducted to confirm patient and procedure and the procedure was begun with a Astorga entry in the supraumbilical position and placement of a 12 mm balloon trocar. Pneumoperitoneum was established at 15 mmHg and an inspection of the peritoneum was made. There was no evidence of inadvertent injury to the viscera below from our entry. Inspection of the liver did not reveal any mass lesions that could be concerning for metastatic deposits. Patient's endoscopically?tattooed mass was readily apparent in the region of the ascending colon. With this target identified, I elected to proceed with additional port placements and placed 5 mm trocars in the suprapubic and left lower quadrant positions. However, before proceeding with this port placement I performed a bilateral TAP block using a solution of Exparel, bupivacaine, and saline to instill 80 mL and evenly measured aliquots under laparoscopic direction. The patient was placed in reverse Trendelenburg positioning and I began to mobilize the colon and a lateral to medial fashion by opening the peritoneal reflection along the right paracolic gutter using the laparoscopic LigaSure device. In doing so we entered the avascular plane between the colon and the retroperitoneum/atop Gerota's fascia inferiorly. I continued this mobilization until we reached the liver. Here the hepatic flexure was taken down carefully as there were several adhesions to a nodular?appearing liver?presumably from patient's prior cholecystectomy and patient's omentum was adhesed down to her mesocolon across her transverse colon. With this mobilization complete patient was placed in Trendelenburg positioning and I freed the appendix from the lateral sidewall as well as performed mobilization of the terminal ileum where there were a few adhesions to the pelvic sidewall. At this juncture I rechecked the mobility of our specimen and found thus lacking in our mobility over the retroperitoneum so gentle traction was placed on the specimen medially and several additional adhesions were lysed until I could clearly visualize the anterior surface of the duodenal sweep. I then rechecked overall mobility of the right colon and found it easily reached to our supraumbilical port site. On reaching this observation, I made the decision to extracorporealize the right colon via a limited midline incision connecting our epigastric and supraumbilical incisions. A medium size Cuco wound protector was placed and our specimen was delivered through this opening with ease. I then determined our proximal and distal transection points and divided the small bowel mesentery and mesocolon, respectively, to these points. A 75 mm FRANCOIS stapler was used to make these transections. The LigaSure was used to begin division of the intervening mesentery. I then sought the ileocolic vessel via as pulsation and skeletonized this vessel of the surrounding fat. This vessel was isolated and clamped proximally a 10 mm Hem-o-ubaldo clip was placed across the vessel before it was divided. Additionally, I performed a stick tie of the vessel using 2-0 silk ligature. The specimen was passed off the field for pathologic processing. I then aligned the remaining ileum and transverse colon-taking care to remove some intervening pericolonic fat from the tinea. A [id number], functional end stapled ileocolonic anastomosis was then produced with a third firing of our FRANCOIS stapler. The common channel was reoriented perpendicularly to our original staple lines and was closed with a TX 60 mm stapler. The staple line was hemostatic, but for added security a 3-0 silk stitch was used to dunk the staple line in a Limbert fashion. The mesenteric defect was left open. A crotch stitch was placed with a 3-0 silk stitch. Satisfied with our anastomosis the bowel was returned to the peritoneum. I then irrigated the abdomen with warm sterile saline and suctioned the effluent free. There were no signs of bleeding with this intervention, however, I chose to palpate the right lobe of the liver and found several small areas of nodularity. I was able to visualize 1 of these minute nodules and chose to perform a biopsy of this site by scoring the liver capsule with cautery and excavating the nodule from the liver surface with LigaSure energy. This liver biopsy specimen was passed off the field for pathology and the resulting crater was cauterized. Additional irrigation was performed and then I placed a swatch of Surgicel snow in this crater to assist with hemostasis. The hemostatic product remained largely unsaturated. I thus removed the wound protector and began closure of the abdomen. All personnel changed gown and gloves before proceeding with closure. The specimen extraction site was inspected and inferiorly I appreciated there was a small umbilical hernia that I had not completely entered but I feared would potentially compromise the integrity of the inferior terminus of my fascial closure so I proceeded to bluntly encircled the umbilical stalk, sharply removed the overlying umbilical skin and then join the hernia defect of the fascia with the fascial defect of our extraction point. Then the fascial defect was closed with #1 PDS in a bidirectional fashion from the corners and tying in the middle. The subcutaneous layer was irrigated above the fascia and the skin was closed with skin hanny. The remaining 5 mm port sites were likewise closed with skin hanny. Dressings were applied and the patient's Ledesma catheter was removed while she was still anesthetized. Patient was awoken from general anesthetic and extubated without complication. She was taken to PACU for ongoing recovery. Complications None Admit VTE Documentation VTE Mechan Device Prophylaxis: SCD's
--- NOTE | 2024-06-25 20:05 | SUR.PHASEI ---
report called to icu, agriculture scientist to transport patient on icu monitor. family notified.
[2024-06-25] MEDS: HYDROmorphone 0.5 MG/0.5 ML SYRINGE IV (23:42)
[2024-06-26] VITALS (16 sets, daily range): BP systolic 99–120; BP diastolic 47–65; PULSE 89–101; RESP 12–18; TEMP 36.1–36.7; O2SAT 89–100; BMI 41.1
[2024-06-26] MEDS: Acetaminophen 325 MG Tablet 650 MG PO ×2 (04:49→11:11)
[2024-06-26] MEDS: Metoclopramide 10 MG/2 ML Vial 5 MG IV ×3 (05:48→17:29)
[2024-06-26 06:32] LABS: Hematocrit 30.7 % (37-47); Hemoglobin 9.6 g/dL (12.0-15.0); Mean Corp Hgb Conc 31.3 g/dL (32-36); Mean Corpuscular Hgb 29.6 pg (27.0-32.0); Mean Corpuscular Volume 94.8 fL (81-99); Mean Platelet Vol. 10.4 fl (6.2-12.0); POSITIVE MORPHOLOGY YES; Platelet Count 280 K/mm3 (150-450); RBC Distribution Width CV 21.4 % (11.6-14.6); RBC Distribution Width SD 73.3 fl (35.1-43.9); Red Blood Count 3.24 M/mm3 (4.2-5.4); White Blood Count 18.3 K/mm3 (4.4-11.0)
[2024-06-26 06:40] LABS: Scan Indicated on CBC? Y/N YES- FLAGS NOTED
[2024-06-26 06:48] LABS: Anion Gap 9 (5-15); BUN 26 mg/dL (7-18); BUN/Creat Ratio 6.7 RATIO (10-20); Calcium,Total 8.5 mg/dL (8.5-10.1); Chloride 103 mmol/L (98-107); EST Glomerular Filtration Rate 12 mL/min (>60); Est Glom Filt Rate - Afr Amer 15 mL/min (>60); Estimated Creatinine Clearance 14.54 ml/min; Glucose 160 mg/dL (74-106); Potassium 4.3 mmol/L (3.5-5.1); Sodium Level 137 mmol/L (136-145)
[2024-06-26 07:24] LABS: Differential Comment SCANNED
--- NOTE | 2024-06-26 07:25 | PN.SURG_ITS ---
Subjective Subjective Patient is tolerating clears denies any nausea or vomiting. Patient denies any flatus. Objective Data Objective Data Vital Signs: Vital Signs Temp Pulse Resp BP Pulse Ox O2 Del Method O2 Flow Rate 97.4 F L 90 15 105/49 L 99 Nasal Cannula 2 06/26/24 05:00 06/26/24 05:00 06/26/24 05:00 06/26/24 05:00 06/26/24 05:00 06/26/24 05:00 06/26/24 05:00 Oxygen Flow Rate (L/min) 2 Oxygen Delivery Method Nasal Cannula Weight: 223 lb 8.78 oz Body Mass Index (BMI) 41.1 Intake & Output: Intake and Output for Last 24 Hours 06/24/24 06/25/24 06/26/24 23:59 23:59 23:59 Intake Total 460 / 460 51 / 51 Output Total 0 2440 / 2440 Balance 460 / 440 -2389 / -2389 Lab / Micro Data 06/26/24 06:15 06/26/24 06:15 Labs: Laboratory Results - last 24 hr 06/23/24 14:37: Diff Path Review Reviewed, Blood Type O POSITIVE, Antibody Screen NEGATIVE, Crossmatch See Detail 06/23/24 14:37: Crossmatch See Detail 06/25/24 15:21: WBC 11.9 H, RBC 2.88 L, Hgb 8.2 L, Hct 26.7 L, MCV 92.7, MCH 28.5, MCHC 30.7 L, RDW Std Deviation 68.9 H, RDW Coeff of Ernie 20.5 H, Plt Count 253, MPV 10.4, Differential Comment SEE COMMENTS 06/26/24 06:15: WBC 18.3 H, RBC 3.24 L, Hgb 9.6 L, Hct 30.7 L, MCV 94.8, MCH 29.6, MCHC 31.3 L, RDW Std Deviation 73.3 H, RDW Coeff of Ernie 21.4 H, Plt Count 280, MPV 10.4, Differential Comment SCANNED, Sodium 137, Potassium 4.3, Chloride 103, Carbon Dioxide 25.0, Anion Gap 9, BUN 26 H, Creatinine 3.90 H, Estim Creat Clear Calc 14.54, Est GFR (MDRD) Af Amer 15 L, Est GFR (MDRD) Non-Af 12 L, B UN/Creatinine Ratio 6.7 L, Glucose 160 H, Calcium 8.5 Micro: Microbiology 06/23/24 14:56 Stool Stool Occult Blood (JAZMÍN) - Final Physical Exam Resp normal respiratory effort Cardio regular rate GI GI Narrative: Abdomen: Soft, nondistended, tender near incision's dressed clean dry and intact?ecchymosis at inferior midline incision, no peritoneal signs Assessment & Plan Assessment/Plan (1) S/P right hemicolectomy: (2) Colonic mass: PLAN: Plan Patient is postop day 1 status post right hemicolectomy due to bleeding colon mass?biopsy pending. Continue clears await bowel function before advancing. Hemoglobin 9.6 continue to monitor patient did get packed red blood cells during dialysis yesterday Leukocytosis 18.3 we will continue to monitor likely status post surgery. Encourage care/ambulation Natasha Herrera M.D. Pager: [phone] [facility] [address] [place] [address], [facility], [address] [place] [id number] Office: [phone]
[2024-06-26] MEDS: Pantoprazole Sodium 40 MG Tablet PO (09:05)
[2024-06-26] MEDS: KETOROLAC TROMETHAMINE LEFT EYE ×4 (09:05→20:43)
[2024-06-26 10:14] LABS: Carcinoembryonic Antigen 2.3 ng/mL (0.0-4.7)
[2024-06-26] MEDS: 0.9% Saline Lock 10 ML Syringe IV ×2 (11:13→17:29)
--- NOTE | 2024-06-26 11:58 | PCM.PN.HOSP ---
Reason for Visit Reason for Visit: Diagnoses Acute posthemorrhagic anemia (06/23/24) Anemia, unspecified (06/23/24) Other specified diseases of intestine (06/23/24) Gastrointestinal hemorrhage, unspecified (06/23/24) End stage renal disease (06/23/24) Acquired absence of other specified parts of digestive tract (06/23/24) Subjective Subjective Saw patient at bedside this morning, and son present. Patient tolerated hemicolectomy procedure fairly well yesterday. She does have some abdominal pain this morning at the incision sites and has not passed any gas yet this morning, but she otherwise feels okay. She does continue to feel fatigued, similar to previous days. She has had a small amount of Jell-O this morning and has tolerated this without issue. No other new concerns today. Objective Data Objective Data Vital Signs: Vital Signs Temp Pulse Resp BP Pulse Ox O2 Del Method O2 Flow Rate 97.8 F 98 16 116/62 100 Nasal Cannula 2 06/26/24 11:10 06/26/24 11:10 06/26/24 11:10 06/26/24 11:10 06/26/24 11:17 06/26/24 11:17 06/26/24 11:17 Oxygen Flow Rate (L/min) 2 Oxygen Delivery Method Nasal Cannula Weight: 101.4 kg Body Mass Index (BMI) 41.1 Intake & Output: Intake and Output for Last 24 Hours 06/24/24 06/25/24 06/26/24 23:59 23:59 23:59 Intake Total 460 / 460 51 / 51 551 / 551 Output Total 0 20 2440 / 2440 Balance 460 / 440 -2389 / -2389 551 / 551 Lab / Micro Data 06/26/24 06:15 06/26/24 06:15 Labs: Laboratory Results - last 24 hr 06/23/24 14:37: Blood Type O POSITIVE, Antibody Screen NEGATIVE, Crossmatch See Detail 06/23/24 14:37: Crossmatch See Detail 06/25/24 03:12: Carcinoembryonic Ag 2.3 06/25/24 15:21: WBC 11.9 H, RBC 2.88 L, Hgb 8.2 L, Hct 26.7 L, MCV 92.7, MCH 28.5, MCHC 30.7 L, RDW Std Deviation 68.9 H, RDW Coeff of Ernie 20.5 H, Plt Count 253, MPV 10.4, Differential Comment SEE COMMENTS 06/26/24 06:15: WBC 18.3 H, RBC 3.24 L, Hgb 9.6 L, Hct 30.7 L, MCV 94.8, MCH 29.6, MCHC 31.3 L, RDW Std Deviation 73.3 H, RDW Coeff of Ernie 21.4 H, Plt Count 280, MPV 10.4, Differential Comment SCANNED, Sodium 137, Potassium 4.3, Chloride 103, Carbon Dioxide 25.0, Anion Gap 9, BUN 26 H, Creatinine 3.90 H, Estim Creat Clear Calc 14.54, Est GFR (MDRD) Af Amer 15 L, Est GFR (MDRD) Non-Af 12 L, BUN/Creatinine Ratio 6.7 L, Glucose 160 H, Calcium 8.5 Micro: Microbiology 06/23/24 14:56 Stool Stool Occult Blood (JAZMÍN) - Final Physical Exam Const alert, oriented x3 and no apparent distress Constitutional Narrative: Elderly female, morbidly obese, mildly fatigued this morning but otherwise sitting up comfortably in bedside chair, conversing normally, in no acute distress. General Appearance: cooperative and comfortable HEENT normocephalic, head/scalp atraumatic, hearing grossly normal bilaterally, nasal mucous membranes and turbinates normal and moist oral mucous membranes Eyes PERRL, EOMs intact bilaterally and conjunctivae normal Neck full ROM Chest inspection of chest normal Resp normal respiratory effort, normal air movement, no use of accessory muscles and clear to auscultation bilaterally Cardio regular rate, regular rhythm, no murmurs and peripheral pulses 2+ throughout GI GI Narrative: Abdomen soft and nondistended. Does have some tenderness near incision site; incision dressing appears clean and dry. Back/Spine normal ROM Extremity normal to inspection and no pedal edema Skin no rashes or lesions noted Neuro no focal motor deficits and no sensory deficits noted Speech: speech normal Psych mental status grossly normal Assessment & Plan Assessment/Plan (1) Anemia due to acute blood loss: (2) Acute gastrointestinal bleeding: (3) ESRD (end stage renal disease): PLAN: Plan Patient is a 73-year-old female who presented [facility] ED on 06/23/2024 from dialysis with worsening anemia. 1. Acute blood loss anemia secondary to lower GI bleed from right-sided colonic mass ? GI and general surgery following. Hemoglobin 5.7 on admit. Prior baseline hemoglobin around 9-10. Improved to 7.6 after 2 units of packed red blood cells given on admission. EGD unremarkable on 06/23. Colonoscopy on 06/24 showed an ascending colonic mass highly concerning for malignancy. CT chest abdomen pelvis showed no evidence of mets. S/p hemicolectomy with general surgery on 06/25. Tolerated procedure well, no intraoperative complications. Hemoglobin was low prior to hemicolectomy procedure, was given 2 units of packed red blood cells during her dialysis and another 2 units during surgery. Most recent hemoglobin 9.6 on 06/26. Continue to monitor CBC daily. On clear liquid diet and awaiting return of bowel function. Appreciate general surgery assistance. Continue to hold Eliquis. 2. Paroxysmal A-fib on Eliquis ? Reportedly diagnosed about 2 weeks prior to this admission. Has been either in sinus tachycardia or normal sinus rhythm since admission on telemetry. Holding Eliquis given ongoing GI bleed from colonic mass and recent surgery as noted above. Will determine need for anticoagulation prior to discharge. No need for rate controlling agent at this time. 3. ESRD on HD ? Nephrology following. On HD MWF, continuing this schedule while inpatient. 4. Restrictive lung disease ? Reported history but we have no notes in our system regarding this. Has been stable on room air since admission. Continue outpatient follow-up. Chronic medical conditions: ? Morbid obesity: BMI 40 on admit. Complicates hospital course, care and prognosis. ? GERD: Continue p.o. PPI daily. ? Type 2 diabetes mellitus: On home sitagliptin. Blood sugars have been stable since admission, no need for sliding scale insulin. DVT prophylaxis: SCDs CODE STATUS: Full code, verified Expected disposition: Home, 2-3 days Total clinical time spent by myself addressing the patient's medical issues, reviewing all the data, and collaborating with patient's care team: 35 minutes. Charges/Coding Visit Charges Inpatient E&M: 44173 Subs Hosp L2
[2024-06-26] MEDS: oxyCODONE 5 MG Tablet PO (14:57)
[2024-06-27] VITALS (8 sets, daily range): BP systolic 95–108; BP diastolic 54–66; PULSE 89–105; RESP 15–18; TEMP 36.1–36.7; O2SAT 93–100; BMI 40.9
[2024-06-27] MEDS: Metoclopramide 10 MG/2 ML Vial 5 MG IV ×4 (00:35→17:38)
[2024-06-27] MEDS: oxyCODONE 5 MG Tablet PO (01:56)
[2024-06-27 06:04] LABS: Hematocrit 28.2 % (37-47); Hemoglobin 8.8 g/dL (12.0-15.0); Mean Corp Hgb Conc 31.2 g/dL (32-36); Mean Corpuscular Hgb 29.9 pg (27.0-32.0); Mean Corpuscular Volume 95.9 fL (81-99); Mean Platelet Vol. 10.5 fl (6.2-12.0); POSITIVE MORPHOLOGY YES; Platelet Count 259 K/mm3 (150-450); RBC Distribution Width CV 21.1 % (11.6-14.6); RBC Distribution Width SD 73.2 fl (35.1-43.9); Red Blood Count 2.94 M/mm3 (4.2-5.4); White Blood Count 12.7 K/mm3 (4.4-11.0)
[2024-06-27 06:27] LABS: Scan Indicated on CBC? Y/N YES- FLAGS NOTED
[2024-06-27 06:29] LABS: Anion Gap 10 (5-15); BUN 38 mg/dL (7-18); BUN/Creat Ratio 7.3 RATIO (10-20); Calcium,Total 8.4 mg/dL (8.5-10.1); Chloride 101 mmol/L (98-107); Creatinine, Serum 5.19 mg/dL (0.55-1.02); EST Glomerular Filtration Rate 9 mL/min (>60); Est Glom Filt Rate - Afr Amer 11 mL/min (>60); Glucose 139 mg/dL (74-106); Sodium Level 135 mmol/L (136-145)
[2024-06-27 07:12] LABS: Differential Comment SCANNED
[2024-06-27] MEDS: KETOROLAC TROMETHAMINE LEFT EYE ×4 (08:30→21:09)
[2024-06-27] MEDS: Pantoprazole Sodium 40 MG Tablet PO (08:30)
[2024-06-27] MEDS: Acetaminophen 325 MG Tablet 650 MG PO ×2 (08:30→23:15)
--- NOTE | 2024-06-27 09:09 | PCM.PN.SRG ---
Subjective Subjective Patient tolerating clears, denies any flatus or bowel movement. Patient does complain of a dry mouth. Objective Data Objective Data Vital Signs: Vital Signs Temp Pulse Resp BP Pulse Ox O2 Del Method O2 Flow Rate 97.4 F L 104 H 18 106/56 L 97 Nasal Cannula 2 06/27/24 08:29 06/27/24 08:29 06/27/24 08:29 06/27/24 08:29 06/27/24 08:29 06/27/24 08:06/27/24 08:29 Oxygen Flow Rate (L/min) 2 Oxygen Delivery Method Nasal Cannula Weight: 222 lb 10.67 oz Body Mass Index (BMI) 40.9 Intake & Output: Intake and Output for Last 24 Hours 06/25/24 06/26/24 06/27/24 23:59 23:59 23:59 Intake Total 51 / 51 1031 / 1151 180 / 180 Output Total 2440 / 2440 0 / 0 0 / 0 Balance -2389 / -2389 1031 / 1151 180 / 180 Lab / Micro Data 06/27/24 05:40 06/27/24 05:40 Labs: Laboratory Results - last 24 hr 06/23/24 14:37: Crossmatch See Detail 06/25/24 03:12: Carcinoembryonic Ag 2.3 06/27/24 05:40: WBC 12.7 H, RBC 2.94 L, Hgb 8.8 L, Hct 28.2 L, MCV 95.9, MCH 29.9, MCHC 31.2 L, RDW Std Deviation 73.2 H, RDW Coeff of Ernie 21.1 H, Plt Count 259, MPV 10.5, Differential Comment SCANNED, Sodium 135 L, Potassium 4.0, Chloride 101, Carbon Dioxide 24.0, Anion Gap 10, BUN 38 H, Creatinine 5.19 H, Estim Creat Clear Calc 10.90, Est GFR (MDRD) Af Amer 11 L, Est GFR (MDRD) Non-Af 9 L, BUN/Creatinine Ratio 7.3 L, Glucose 139 H, Calcium 8.4 L Micro: Microbiology 06/23/24 14:56 Stool Stool Occult Blood (JAZMÍN) - Final Physical Exam Resp normal respiratory effort Cardio regular rate GI GI Narrative: Abdomen: Soft, nondistended, tender near incision's dressed clean dry and intact, no peritoneal signs Assessment & Plan Assessment/Plan (1) S/P right hemicolectomy: (2) Colonic mass: PLAN: Plan Patient is postop day 2 status post right hemicolectomy due to bleeding colon mass?biopsy pending. Continue clears await bowel function before advancing. Hemoglobin 8.8 from 9.6 but likely the 9.6 was falsely elevated as patient was 6.1 and got 2 units during dialysis. Leukocytosis improving Encourage care/ambulation Natasha Herrera M.D. Pager: [phone] [facility] [address] [place] [address], [facility], [address] [place] [address] Office: [phone]
[2024-06-27] MEDS: Saliva Substitute 237 ML BOTTLE 15 ML MUCOUS MEM ×2 (09:15→21:09)
--- NOTE | 2024-06-27 10:54 | NURSING ---
Ambulated patient to bathroom, no gas/void. bladder scanned for 0ml, pt states she does void at home but minimally d/t dialysis. Reminded patient of importance of ambulation postop. Patient states understanding. Back resting in bed with call light in reach.
--- NOTE | 2024-06-27 11:53 | PCM.PN.HOSP ---
Reason for Visit Reason for Visit: Diagnoses Acute posthemorrhagic anemia (06/23/24) Anemia, unspecified (06/23/24) Other specified diseases of intestine (06/23/24) Gastrointestinal hemorrhage, unspecified (06/23/24) End stage renal disease (06/23/24) Acquired absence of other specified parts of digestive tract (06/23/24) Subjective Subjective Saw patient at bedside this morning. Patient appeared similar to yesterday. Was sitting up comfortably in bedside chair but somewhat fatigued appearing, otherwise in no acute distress. She unfortunately still has not had return of bowel function yet. She was seen by general surgery this morning and I discussed patient with Dr. Herrera, who noted that patient has done fine postoperatively and we are simply awaiting return of bowel function at this point. Patient tolerating full liquid diet without issue. No other new concerns today. Objective Data Objective Data Vital Signs: Vital Signs Temp Pulse Resp BP Pulse Ox O2 Del Method O2 Flow Rate 97.4 F L 104 H 18 106/56 L 97 Nasal Cannula 2 06/27/24 08:29 06/27/24 08:29 06/27/24 08:29 06/27/24 08:29 06/27/24 08:29 06/27/24 08:29 06/27/24 08:29 Oxygen Flow Rate (L/min) 2 Oxygen Delivery Method Nasal Cannula Weight: 101 kg Body Mass Index (BMI) 40.9 Intake & Output: Intake and Output for Last 24 Hours 06/25/24 06/26/24 06/27/24 23:59 23:59 23:59 Intake Total 51 / 51 1031 / 1151 380 / 380 Output Total 2440 / 2440 0 / 0 0 / 0 Balance -2389 / -2389 1031 / 1151 380 / 380 Lab / Micro Data 06/27/24 05:40 06/27/24 05:40 Labs: Laboratory Results - last 24 hr 06/23/24 14:37: Crossmatch See Detail 06/27/24 05:40: WBC 12.7 H, RBC 2.94 L, Hgb 8.8 L, Hct 28.2 L, MCV 95.9, MCH 29.9, MCHC 31.2 L, RDW Std Deviation 73.2 H, RDW Coeff of Ernie 21.1 H, Plt Count 259, MPV 10.5, Differential Comment SCANNED, Sodium 135 L, Potassium 4.0, Chloride 101, Carbon Dioxide 24.0, Anion Gap 10, BUN 38 H, Creatinine 5.19 H, Estim Creat Clear Calc 10.90, Est GFR (MDRD) Af Amer 11 L, Est GFR (MDRD) Non-Af 9 L, BUN/Creatinine Ratio 7.3 L, Glucose 139 H, Calcium 8.4 L Micro: Microbiology 06/23/24 14:56 Stool Stool Occult Blood (JAZMÍN) - Final Physical Exam Const alert, oriented x3 and no apparent distress Constitutional Narrative: Elderly female, morbidly obese, mildly fatigued this morning but otherwise sitting up comfortably in bedside chair, conversing normally, in no acute distress. Stable. General Appearance: cooperative and comfortable HEENT normocephalic, head/scalp atraumatic, hearing grossly normal bilaterally, nasal mucous membranes and turbinates normal and moist oral mucous membranes Eyes PERRL, EOMs intact bilaterally and conjunctivae normal Neck full ROM Chest inspection of chest normal Resp normal respiratory effort, normal air movement, no use of accessory muscles and clear to auscultation bilaterally Cardio regular rate, regular rhythm, no murmurs and peripheral pulses 2+ throughout GI GI Narrative: Abdomen soft and nondistended. Does have some tenderness near incision site; incision dressing appears clean and dry. Stable. Back/Spine normal ROM Extremity normal to inspection and no pedal edema Skin no rashes or lesions noted Neuro no focal motor deficits and no sensory deficits noted Speech: speech normal Psych mental status grossly normal Assessment & Plan Assessment/Plan (1) Anemia due to acute blood loss: (2) Acute gastrointestinal bleeding: (3) ESRD (end stage renal disease): PLAN: Plan Patient is a 73-year-old female who presented [facility] ED on 06/23/2024 from dialysis with worsening anemia. 1. Acute blood loss anemia secondary to lower GI bleed from right-sided colonic mass ? GI and general surgery following. Hemoglobin 5.7 on admit. Prior baseline hemoglobin around 9-10. Improved to 7.6 after 2 units of packed red blood cells given on admission. EGD unremarkable on 06/23. Colonoscopy on 06/24 showed an ascending colonic mass highly concerning for malignancy. CT chest abdomen pelvis showed no evidence of mets. S/p hemicolectomy with general surgery on 9/13. Tolerated procedure well, no intraoperative complications. Hemoglobin was low prior to hemicolectomy procedure, was given 2 units of packed red blood cells during her dialysis. Most recent hemoglobin 9.6 on 06/26. Continue to monitor CBC daily. On full liquid diet and awaiting return of bowel function. Appreciate general surgery assistance. Continue to hold Eliquis. 2. Paroxysmal A-fib on Eliquis ? Reportedly diagnosed about 2 weeks prior to this admission. Has been either in sinus tachycardia or normal sinus rhythm since admission on telemetry. Holding Eliquis given ongoing GI bleed from colonic mass and recent surgery as noted above. Will determine need for anticoagulation prior to discharge. No need for rate controlling agent at this time. 3. ESRD on HD ? Nephrology following. On HD MWF, continuing this schedule while inpatient. 4. Restrictive lung disease ? Reported history but we have no notes in our system regarding this. Has been stable on room air since admission. Continue outpatient follow-up. Chronic medical conditions: ? Morbid obesity: BMI 40 on admit. Complicates hospital course, care and prognosis. ? GERD: Continue p.o. PPI daily. ? Type 2 diabetes mellitus: On home sitagliptin. Blood sugars have been stable since admission, no need for sliding scale insulin. DVT prophylaxis: SCDs CODE STATUS: Full code, verified Expected disposition: Home, 2-3 days Total clinical time spent by myself addressing the patient's medical issues, reviewing all the data, and collaborating with patient's care team: 35 minutes. Charges/Coding Visit Charges Inpatient E&M: 10144 Subs Hosp L2
[2024-06-27] MEDS: 0.9% Saline Lock 10 ML Syringe IV (17:38)
[2024-06-28] VITALS (16 sets, daily range): BP systolic 1–854; BP diastolic 53–84; PULSE 87–108; RESP 14–18; TEMP 36.2–36.7; O2SAT 92–98; BMI 42.5; BMI 41.0
[2024-06-28] MEDS: Metoclopramide 10 MG/2 ML Vial 5 MG IV ×5 (00:29→23:35)
[2024-06-28 07:10] LABS: Hematocrit 28.2 % (37-47); Hemoglobin 8.3 g/dL (12.0-15.0); Mean Corp Hgb Conc 29.4 g/dL (32-36); Mean Corpuscular Hgb 28.6 pg (27.0-32.0); Mean Corpuscular Volume 97.2 fL (81-99); Mean Platelet Vol. 10.6 fl (6.2-12.0); POSITIVE MORPHOLOGY YES; Platelet Count 266 K/mm3 (150-450); RBC Distribution Width CV 20.2 % (11.6-14.6); RBC Distribution Width SD 72.1 fl (35.1-43.9); White Blood Count 12.8 K/mm3 (4.4-11.0)
[2024-06-28 07:41] LABS: Scan Indicated on CBC? Y/N YES- FLAGS NOTED
[2024-06-28 07:42] LABS: Anion Gap 12 (5-15); BUN 51 mg/dL (7-18); BUN/Creat Ratio 7.9 RATIO (10-20); Calcium,Total 9.1 mg/dL (8.5-10.1); Chloride 100 mmol/L (98-107); Creatinine, Serum 6.44 mg/dL (0.55-1.02); EST Glomerular Filtration Rate 7 mL/min (>60); Est Glom Filt Rate - Afr Amer 8 mL/min (>60); Estimated Creatinine Clearance 8.98 ml/min; Glucose 129 mg/dL (74-106); Sodium Level 133 mmol/L (136-145)
--- NOTE | 2024-06-28 07:51 | PN.SURG_ITS ---
Subjective Subjective Patient evaluated while on dialysis resting comfortably in bed. She notes incisional pain. She notes tolerating her full liquid diet without any concerns. She notes flatus. She denies any bowel movements. She denies nausea, vomiting. Objective Data Objective Data Vital Signs: Vital Signs Temp Pulse Resp BP Pulse Ox O2 Del Method O2 Flow Rate 97.7 F L 98 16 99/60 96 Nasal Cannula 2 06/28/24 07:10 06/28/24 07:30 06/28/24 07:30 06/28/24 07:30 06/28/24 07:30 06/28/24 07:30 06/28/24 07:30 Oxygen Flow Rate (L/min) 2 Oxygen Delivery Method Nasal Cannula Weight: 231 lb 6.4 oz Body Mass Index (BMI) 42.5 Intake & Output: Intake and Output for Last 24 Hours 06/26/24 06/27/24 06/28/24 23:59 23:59 23:59 Intake Total 1031 / 1151 580 / 700 240 / 240 Output Total 0 / 0 0 / 0 0 / 0 Balance 1031 / 1151 580 / 700 240 / 240 Lab / Micro Data 06/28/24 06:48 06/28/24 06:48 Labs: Laboratory Results - last 24 hr 06/23/24 14:37: Crossmatch See Detail 06/28/24 06:48: WBC 12.8 H, RBC 2.90 L, Hgb 8.3 L, Hct 28.2 L, MCV 97.2, MCH 28.6, MCHC 29.4 L D, RDW Std Deviation 72.1 H, RDW Coeff of Ernie 20.2 H, Plt Count 266, MPV 10.6, Sodium 133 L, Potassium 4.0, Chloride 100, Carbon Dioxide 21.0, Anion Gap 12, BUN 51 H, Creatinine 6.44 H, Estim Creat Clear Calc 8.98, E st GFR (MDRD) Af Amer 8 L, Est GFR (MDRD) Non-Af 7 L, BUN/Creatinine Ratio 7.9 L , Glucose 129 H, Calcium 9.1 Micro: Microbiology 06/23/24 14:56 Stool Stool Occult Blood (JAZMÍN) - Final Assessment & Plan Assessment/Plan (1) S/P right hemicolectomy: PLAN: I am following this patient in conjunction with Dr. Herrera in Dr. Manzanares's absence. She will independently evaluate this patient. Labs reviewed Abdomen unable to be examined due to patient on dialysis. will return later this morning for an abdominal exam. Increase to transitional diet. If patient becomes distended or nauseated, plan to decrease diet back to full liquids Dialysis is M,W,F We will continue to monitor this patient Not ready for discharge today. Possibly tomorrow or Friday Charges/Coding Visit Charges Inpatient E&M: 92076 Subs Hosp L1 (post-op; no charge)
[2024-06-28] MEDS: PureFlow B 3K Dialysis Soln 1 BAG 6 BAG PF (10:31)
[2024-06-28] MEDS: 0.9% Normal Saline 1,000 ML IV.SOLN. 1000 ML OPERA.SITE (10:31)
[2024-06-28] MEDS: Acetaminophen 325 MG Tablet 650 MG PO ×2 (10:43→21:33)
--- NOTE | 2024-06-28 10:59 | CASEMGMT ---
Addendum entered by Rosemary Heaton 06/28/24 11:24: TC to [facility] and they state that the pt current PCP (Pancho) is leaving on the but Dr. Kristin Martinez is willing to sign and follow HH orders. Leonor C updated via [facility] at this time. Original Note: Pt states that she would prefer to have Dr. Kristin Martinez follow the HH orders. Leonor updated via [facility]. Report given to [facility] CM.
--- NOTE | 2024-06-28 11:53 | PN.RENAL_ITS ---
Subjective Subjective Sitting in chair. Finished dialysis. Complains of feeling tired. Objective Data Objective Data Vital Signs: Vital Signs Temp Pulse Resp BP Pulse Ox O2 Del Method O2 Flow Rate 98.0 F 89 14 115/62 98 Nasal Cannula 2 06/28/24 11:21 06/28/24 11:21 06/28/24 11:21 06/28/24 11:21 06/28/24 11:21 06/28/24 11:21 06/28/24 11:21 Oxygen Flow Rate (L/min) 2 Oxygen Delivery Method Nasal Cannula Weight: 101.2 kg Body Mass Index (BMI) 41.0 Intake & Output: Intake and Output for Last 24 Hours 06/26/24 06/27/24 06/28/24 23:59 23:59 23:59 Intake Total 1031 / 1151 580 / 700 240 / 240 Output Total 0 / 0 0 / 0 1850 / 1850 Balance 1031 / 1151 580 / 700 -1610 / -1610 Lab / Micro Data 06/28/24 06:48 06/28/24 06:48 Labs: Laboratory Results - last 24 hr 06/28/24 06:48: WBC 12.8 H, RBC 2.90 L, Hgb 8.3 L, Hct 28.2 L, MCV 97.2, MCH 28.6, MCHC 29.4 L D, RDW Std Deviation 72.1 H, RDW Coeff of Ernie 20.2 H, Plt Count 266, MPV 10.6, Differential Comment ., Sodium 133 L, Potassium 4.0, Chloride 100, Carbon Dioxide 21.0, Anion Gap 12, BUN 51 H, Creatinine 6.44 H, Estim Creat Clear Calc 8.98, Est GFR (MDRD) Af Amer 8 L, Est GFR (MDRD) Non-Af 7 L, BUN/Creatinine Ratio 7.9 L, Glucose 129 H, Calcium 9.1 Micro: Microbiology 06/23/24 14:56 Stool Stool Occult Blood (JAZMÍN) - Final Physical Exam Narrative Alert oriented x 3, no apparent stress S1, S2, RRR Lung sounds clear anteriorly and posteriorly. On room air Abdomen soft, nontender ++edema bilateral legs Right forearm AV graft positive thrill and bruit Assessment & Plan Assessment/Plan (1) ESRD (end stage renal disease): (2) Anemia due to acute blood loss: PLAN: Plan - ESRD; dialyzes Friday schedule at [facility] kidney center in [place] under the direction of Dr. Trinh. Patient tolerated dialysis today with around 1.8 L fluid removal. Dry weight is 100.5 kg. Patient will have new lowered to EDW by time of hospital discharge. Patient reports blood pressures have been low at the kidney center and has used midodrine as needed. Will order midodrine to be used as needed during dialysis. - acute anemia. Normal EGD. Colonoscopy: Colon mass. Patient underwent right hemicolectomy 06/25. Eliquis remains on hold. Patient has received multiple units PRBC, hemoglobin was 5.7. Hemoglobin 8.3 today. -History of Hyperphosphatemia; patient takes Velphoro 1 tablet with meals. Velphoro had been on hold as patient was n.p.o. She is on clear liquids. Will continue holding Velphoro.
--- NOTE | 2024-06-28 12:08 | PCM.PN.HOSP ---
Reason for Visit Reason for Visit: Diagnoses Acute posthemorrhagic anemia (06/23/24) Anemia, unspecified (06/23/24) Other specified diseases of intestine (06/23/24) Gastrointestinal hemorrhage, unspecified (06/23/24) End stage renal disease (06/23/24) Acquired absence of other specified parts of digestive tract (06/23/24) Subjective Subjective Saw patient at bedside this morning. Patient was having hemodialysis done when I saw her. She did note passing gas for the first time yesterday evening. Still has not had any bowel movements. Continues to tolerate full liquid diet without issue. No other new concerns today. Objective Data Objective Data Vital Signs: Vital Signs Temp Pulse Resp BP Pulse Ox O2 Del Method O2 Flow Rate 98.0 F 89 14 115/62 98 Nasal Cannula 2 06/28/24 11:21 06/28/24 11:21 06/28/24 11:21 06/28/24 11:21 06/28/24 11:21 06/28/24 11:21 06/28/24 11:21 Oxygen Flow Rate (L/min) 2 Oxygen Delivery Method Nasal Cannula Weight: 101.2 kg Body Mass Index (BMI) 41.0 Intake & Output: Intake and Output for Last 24 Hours 06/26/24 06/27/24 06/28/24 23:59 23:59 23:59 Intake Total 1031 / 1151 580 / 700 240 / 240 Output Total 0 / 0 0 / 0 1850 / 1850 Balance 1031 / 1151 580 / 700 -1610 / -1610 Lab / Micro Data 06/28/24 06:48 06/28/24 06:48 Labs: Laboratory Results - last 24 hr 06/28/24 06:48: WBC 12.8 H, RBC 2.90 L, Hgb 8.3 L, Hct 28.2 L, MCV 97.2, MCH 28.6, MCHC 29.4 L D, RDW Std Deviation 72.1 H, RDW Coeff of Ernie 20.2 H, Plt Count 266, MPV 10.6, Differential Comment ., Sodium 133 L, Potassium 4.0, Chloride 100, Carbon Dioxide 21.0, Anion Gap 12, BUN 51 H, Creatinine 6.44 H, Estim Creat Clear Calc 8.98, Est GFR (MDRD) Af Amer 8 L, Est GFR (MDRD) Non-Af 7 L, BUN/Creatinine Ratio 7.9 L, Glucose 129 H, Calcium 9.1 Micro: Microbiology 06/23/24 14:56 Stool Stool Occult Blood (JAZMÍN) - Final Physical Exam Const alert, oriented x3 and no apparent distress Constitutional Narrative: Elderly female, morbidly obese, mildly fatigued but otherwise laying comfortably in bed, conversing normally, in no acute distress. Stable. General Appearance: cooperative and comfortable HEENT normocephalic, head/scalp atraumatic, hearing grossly normal bilaterally, nasal mucous membranes and turbinates normal and moist oral mucous membranes Eyes PERRL, EOMs intact bilaterally and conjunctivae normal Neck full ROM Chest inspection of chest normal Resp normal respiratory effort, normal air movement, no use of accessory muscles and clear to auscultation bilaterally Cardio regular rate, regular rhythm, no murmurs and peripheral pulses 2+ throughout GI GI Narrative: Abdomen soft and nondistended. Mild tenderness noted near incision site, stable. Incision site appears clean and dry. Back/Spine normal ROM Extremity normal to inspection and no pedal edema Skin no rashes or lesions noted Neuro no focal motor deficits and no sensory deficits noted Speech: speech normal Psych mental status grossly normal Assessment & Plan Assessment/Plan (1) Anemia due to acute blood loss: (2) Acute gastrointestinal bleeding: (3) ESRD (end stage renal disease): PLAN: Plan Patient is a 73-year-old female who presented [facility] ED on 06/23/2024 from dialysis with worsening anemia. 1. Acute blood loss anemia secondary to lower GI bleed from right-sided colonic mass ? GI and general surgery following. Hemoglobin 5.7 on admit. Prior baseline hemoglobin around 9-10. Improved to 7.6 after 2 units of packed red blood cells given on admission. EGD unremarkable on 06/23. Colonoscopy on 06/24 showed an ascending colonic mass highly concerning for malignancy. CT chest abdomen pelvis showed no evidence of mets. S/p hemicolectomy with general surgery on 06/25. Tolerated procedure well, no intraoperative complications. Hemoglobin was low prior to hemicolectomy procedure, was given 2 units of packed red blood cells during her dialysis. Most recent hemoglobin 8.3 on 06/28. Continue to monitor CBC daily. Passing flatus on 06/28, increased to transitional diet. Further advancement of diet per general surgery recommendations. Continue to hold Eliquis for now. 2. Paroxysmal A-fib on Eliquis ? Reportedly diagnosed about 2 weeks prior to this admission. Has been either in sinus tachycardia or normal sinus rhythm since admission on telemetry. Holding Eliquis given ongoing GI bleed from colonic mass and recent surgery as noted above. Will determine need for anticoagulation prior to discharge. No need for rate controlling agent at this time. 3. ESRD on HD ? Nephrology following. On HD MWF, continuing this schedule while inpatient. 4. Restrictive lung disease ? Reported history but we have no notes in our system regarding this. Has been stable on room air since admission. Continue outpatient follow-up. 5. Chronic debility ? PT/OT/case management following. Patient follows with home health care and plan will be to resume home health care on discharge. Chronic medical conditions: ? Morbid obesity: BMI 40 on admit. Complicates hospital course, care and prognosis. ? GERD: Continue p.o. PPI daily. ? Type 2 diabetes mellitus: On home sitagliptin. Blood sugars have been stable since admission, no need for sliding scale insulin. DVT prophylaxis: SCDs CODE STATUS: Full code, verified Expected disposition: Home with home health care, 1 to 2 days Total clinical time spent by myself addressing the patient's medical issues, reviewing all the data, and collaborating with patient's care team: 35 minutes. Charges/Coding Visit Charges Inpatient E&M: 33757 Subs Hosp L2
[2024-06-28] MEDS: KETOROLAC TROMETHAMINE LEFT EYE ×4 (12:46→21:27)
[2024-06-28] MEDS: Pantoprazole Sodium 40 MG Tablet PO (12:47)
--- NOTE | 2024-06-28 18:14 | PN.GI_ITS ---
Subjective Subjective Patient is doing well since she underwent surgery. She is not having any complaints or pain at this time. She is just waiting to have a bowel movement. Objective Data Objective Data Vital Signs: Vital Signs Temp Pulse Resp BP Pulse Ox O2 Del Method O2 Flow Rate 97.9 F 89 16 103/57 L 92 Nasal Cannula 2 06/28/24 14:42 06/28/24 14:42 06/28/24 14:42 06/28/24 14:42 06/28/24 15:58 06/28/24 14:42 06/28/24 16:02 Oxygen Flow Rate (L/min) 2 Oxygen Delivery Method Nasal Cannula Weight: 223 lb 1.725 oz Body Mass Index (BMI) 41.0 Intake & Output: Intake and Output for Last 24 Hours 06/26/24 06/27/24 06/28/24 23:59 23:59 23:59 Intake Total 1031 / 1151 580 / 700 240 / 240 Output Total 0 / 0 0 / 0 1850 / 1850 Balance 1031 / 1151 580 / 700 -1610 / -1610 Lab / Micro Data 06/28/24 06:48 06/28/24 06:48 Labs: Laboratory Results - last 24 hr 06/28/24 06:48: WBC 12.8 H, RBC 2.90 L, Hgb 8.3 L, Hct 28.2 L, MCV 97.2, MCH 28.6, MCHC 29.4 L D, RDW Std Deviation 72.1 H, RDW Coeff of Ernie 20.2 H, Plt Count 266, MPV 10.6, Differential Comment ., Sodium 133 L, Potassium 4.0, Chloride 100, Carbon Dioxide 21.0, Anion Gap 12, BUN 51 H, Creatinine 6.44 H, Estim Creat Clear Calc 8.98, Est GFR (MDRD) Af Amer 8 L, Est GFR (MDRD) Non-Af 7 L, BUN/Creatinine Ratio 7.9 L, Glucose 129 H, Calcium 9.1 Micro: Microbiology 06/23/24 14:56 Stool Stool Occult Blood (JAZMÍN) - Final Physical Exam Resp normal respiratory effort Cardio regular rate GI GI Narrative: Abdomen: Soft, nondistended, tender near incision's dressed clean dry and intact, no peritoneal signs Assessment & Plan Assessment/Plan (1) Anemia due to acute blood loss: (2) Acute gastrointestinal bleeding: (3) ESRD (end stage renal disease): PLAN: Plan Patient is a 73-year-old female who presented [facility] ED on 06/23/2024 from dialysis with worsening anemia. Acute blood loss anemia secondary to lower GI bleed from right-sided colonic mass. Her hemoglobin 5.7 on admit. Prior baseline hemoglobin around 9-10. Improved to 7.6 after 2 units of packed red blood cells given on admission. EGD unremarkable on 06/23. Colonoscopy on 06/24 showed an ascending colonic mass highly concerning for malignancy. CT chest abdomen pelvis showed no evidence of mets. S/p hemicolectomy with general surgery on 06/25. Patient doing well. Awaiting CEA and she will need repeat colonoscopy in approximately 3 to 4 months. Charges/Coding Visit Charges Inpatient E&M: 18453 Subs Hosp L3
[2024-06-28] MEDS: Saliva Substitute 237 ML BOTTLE 15 ML MUCOUS MEM (21:30)
[2024-06-28] MEDS: 0.9% Saline Lock 10 ML Syringe IV (23:35)
[2024-06-29] VITALS (7 sets, daily range): BP systolic 95–117; BP diastolic 44–64; PULSE 98–108; RESP 16–18; TEMP 35.8–36.6; O2SAT 89–100; BMI 41.0
[2024-06-29] MEDS: 0.9% Saline Lock 10 ML Syringe IV (05:43)
[2024-06-29] MEDS: Metoclopramide 10 MG/2 ML Vial 5 MG IV ×4 (05:43→23:19)
[2024-06-29 06:45] LABS: Absolute Lymphocyte Count 0.52 X10^3/uL (0.83-4.51); Absolute Neutrophil Count 8.9 X10^3/uL (2.0-7.7); Basophil# 0.05 X10^3/uL; Basophil% 0.5 % (0-1); Eosinophil# 0.58 X10^3/uL; Eosinophils% 5.3 % (0-5); Hemoglobin 8.3 g/dL (12.0-15.0); Lymphocyte # 0.52 X10^3/ul (0.83-4.51); Lymphocyte % 4.7 % (19-41); Mean Corp Hgb Conc 29.6 g/dL (32-36); Mean Corpuscular Hgb 28.9 pg (27.0-32.0); Mean Corpuscular Volume 97.6 fL (81-99); Mean Platelet Vol. 10.6 fl (6.2-12.0); Monocyte# 0.84 X10^3/uL; Monocyte% 7.7 % (0-10); NRBC Flagged by Analyzer 0.2 % (0-5); Neutrophil # 8.92 X10^3/uL (2.7-7.7); Neutrophil % 81.3 % (47-70); POSITIVE DIFFERENTIAL YES; POSITIVE MORPHOLOGY YES; Platelet Count 261 K/mm3 (150-450); RBC Distribution Width SD 71.3 fl (35.1-43.9); Red Blood Count 2.87 M/mm3 (4.2-5.4)
[2024-06-29 06:52] LABS: Differential Indicated SCAN CRITERIA MET
[2024-06-29 07:04] LABS: Anion Gap 10 (5-15); BUN 36 mg/dL (7-18); BUN/Creat Ratio 7.3 RATIO (10-20); Calcium,Total 8.9 mg/dL (8.5-10.1); Chloride 102 mmol/L (98-107); EST Glomerular Filtration Rate 9 mL/min (>60); Est Glom Filt Rate - Afr Amer 11 mL/min (>60); Estimated Creatinine Clearance 11.59 ml/min; Glucose 145 mg/dL (74-106); Magnesium 2.4 mg/dL (1.6-2.6); Potassium 3.7 mmol/L (3.5-5.1); Sodium Level 135 mmol/L (136-145)
--- NOTE | 2024-06-29 08:26 | RAD_ITS ---
STUDY: X-RAY - ABDOMEN/PELVIS REASON FOR EXAM: Female, 73 years old. Abdominal distention TECHNIQUE: Single AP view of the abdomen / pelvis. COMPARISON: None. FINDINGS: Gas is seen throughout nondilated small bowel loops and colon. This may represent an ileus pattern. A metallic clip is seen in the region of the cecum. Surgical clips are seen overlying the left lower quadrant. Normal soft tissue structures. There are diffuse degenerative changes of the visualized lumbar spine. RAD/Abdomen Single View IMPRESSION: Findings suggestive of ileus pattern. Electronically Signed: Louis Serrano MD at 13:54 EDT ,
[2024-06-29 08:29] LABS: Anisocytosis 2+; Differential Comment SCANNED; Hypochromasia 1+; Macrocytosis 1+; Microcytosis 1+
--- NOTE | 2024-06-29 08:29 | PCM.PN.SRG ---
Subjective Subjective Patient evaluated resting comfortably in bed. She denies nausea, vomiting. She is tolerating transitional diet. She is passing flatus. She denies any bowel movements. She denies fever. She voices she does not feel bloated. Objective Data Objective Data Vital Signs: Vital Signs Temp Pulse Resp BP Pulse Ox O2 Del Method O2 Flow Rate 96.5 F L 105 H 18 103/60 95 Room Air 2 06/29/24 03:31 06/29/24 03:31 06/29/24 03:31 06/29/24 03:31 06/29/24 08:12 06/29/24 08:12 06/29/24 01:32 Oxygen Flow Rate (L/min) 2 Oxygen Delivery Method Room Air Weight: 224 lb 3.362 oz Body Mass Index (BMI) 41.0 Intake & Output: Intake and Output for Last 24 Hours 06/27/24 06/28/24 06/29/24 23:59 23:59 23:59 Intake Total 580 / 700 240 / 240 Output Total 0 / 0 1850 / 1850 Balance 580 / 700 -1610 / -1610 Lab / Micro Data 06/29/24 06:30 06/29/24 06:30 Labs: Laboratory Results - last 24 hr 06/28/24 06:48: Differential Comment . 06/29/24 06:30: WBC 11.0, RBC 2.87 L, Hgb 8.3 L, Hct 28.0 L, MCV 97.6, MCH 28.9, MCHC 29.6 L, RDW Std Deviation 71.3 H, RDW Coeff of Ernie 20.0 H, Plt Count 261, MPV 10.6, Immature Gran % (Auto) 0.500, Neut % (Auto) 81.3 H, Lymph % (Auto) 4.7 L, [place] % (Auto) 7.7, Eos % (Auto) 5.3 H, Baso % (Auto) 0.5, Absolute Neuts (auto) 8.9 H, Absolute Lymphs (auto) 0.52 L, Nucleated RBC % 0.2, Sodium 135 L, Potassium 3.7, Chloride 102, Carbon Dioxide 23.0, Anion Gap 10, BUN 36 H, Creatinine 4.90 H, Estim Creat Clear Calc 11.59, Est GFR (MDRD) Af Amer 11 L, Est GFR (MDRD) Non-Af 9 L, BUN/Creatinine Ratio 7.3 L, Glucose 145 H, Calcium 8.9, Magnesium 2.4 Micro: Microbiology 06/23/24 14:56 Stool Stool Occult Blood (JAZMÍN) - Final Physical Exam GI GI Narrative: Abdomen- soft, tenderness near incision sites. Incisions c/d/i. No erythema or infection noted. Appears distended. Hypoactive bowel sounds. Assessment & Plan Assessment/Plan (1) S/P right hemicolectomy: (2) History of liver biopsy: PLAN: Plan I am following this patient in conjunction with Dr. Manzanares. He has independently evaluated this patient. Labs reviewed KUB ordered as patient appears slightly more distended this morning Encourage ambulation and in the chair for meals We will continue to monitor this patient Charges/Coding Visit Charges Inpatient E&M: 03270 Subs Hosp L1 (post-op)
[2024-06-29] MEDS: KETOROLAC TROMETHAMINE LEFT EYE ×4 (10:13→23:19)
[2024-06-29] MEDS: Pantoprazole Sodium 40 MG Tablet PO (10:13)
[2024-06-29] MEDS: Acetaminophen 325 MG Tablet 650 MG PO (10:20)
--- NOTE | 2024-06-29 14:14 | PCM.PN.HOSP ---
Reason for Visit Reason for Visit: Diagnoses Acute posthemorrhagic anemia (06/23/24) Anemia, unspecified (06/23/24) Other specified diseases of intestine (06/23/24) Gastrointestinal hemorrhage, unspecified (06/23/24) End stage renal disease (06/23/24) Acquired absence of other specified parts of digestive tract (06/23/24) Other specified postprocedural states (06/23/24) Subjective Subjective Saw patient at bedside this morning. Patient appeared similar today to previous days. Remains somewhat fatigued but otherwise in no acute distress. Was passing flatus and tolerating transitional diet without significant issue. No other new concerns today. Objective Data Objective Data Vital Signs: Vital Signs Temp Pulse Resp BP Pulse Ox O2 Del Method O2 Flow Rate 97.1 F L 98 16 105/64 97 Nasal Cannula 2 06/29/24 13:56 06/29/24 13:56 06/29/24 13:56 06/29/24 13:56 06/29/24 13:56 06/29/24 13:56 06/29/24 13:56 Oxygen Flow Rate (L/min) 2 Oxygen Delivery Method Nasal Cannula Weight: 101.7 kg Body Mass Index (BMI) 41.0 Intake & Output: Intake and Output for Last 24 Hours 06/27/24 06/28/24 06/29/24 23:59 23:59 23:59 Intake Total 580 / 700 240 / 240 Output Total 0 / 0 1850 / 1850 Balance 580 / 700 -1610 / -1610 Lab / Micro Data 06/29/24 06:30 06/29/24 06:30 Labs: Laboratory Results - last 24 hr 06/29/24 06:30: WBC 11.0, RBC 2.87 L, Hgb 8.3 L, Hct 28.0 L, MCV 97.6, MCH 28.9, MCHC 29.6 L, RDW Std Deviation 71.3 H, RDW Coeff of Ernie 20.0 H, Plt Count 261, MPV 10.6, Immature Gran % (Auto) 0.500, Neut % (Auto) 81.3 H, Lymph % (Auto) 4.7 L, [place] % (Auto) 7.7, Eos % (Auto) 5.3 H, Baso % (Auto) 0.5, Absolute Neuts (auto) 8.9 H, Absolute Lymphs (auto) 0.52 L, Nucleated RBC % 0.2, Differential Comment SCANNED, Hypochromasia 1+, Anisocytosis 2+, Microcytosis 1+, Macrocytosis 1+, Sodium 135 L, Potassium 3.7, Chloride 102, Carbon Dioxide 23.0, Anion Gap 10, BUN 36 H, Creatinine 4.90 H, Estim Creat Clear Calc 11.59, Est GFR (MDRD) Af Amer 11 L, Est GFR (MDRD) Non-Af 9 L, BUN/Creatinine Ratio 7.3 L, Glucose 145 H, Calcium 8.9, Magnesium 2.4 Micro: Microbiology 06/23/24 14:56 Stool Stool Occult Blood (JAZMÍN) - Final Radiography Diagnostic Testing: Radiology Impression KUB X-Ray 06/29/24 08:26 IMPRESSION: Findings suggestive of ileus pattern. Electronically Signed: Louis Serrano MD at 13:54 EDT , Physical Exam Const alert, oriented x3 and no apparent distress Constitutional Narrative: Elderly female, morbidly obese, mildly fatigued but otherwise laying comfortably in bed, conversing normally, in no acute distress. Stable. General Appearance: cooperative and comfortable HEENT normocephalic, head/scalp atraumatic, hearing grossly normal bilaterally, nasal mucous membranes and turbinates normal and moist oral mucous membranes Eyes PERRL, EOMs intact bilaterally and conjunctivae normal Neck full ROM Chest inspection of chest normal Resp normal respiratory effort, normal air movement, no use of accessory muscles and clear to auscultation bilaterally Cardio regular rate, regular rhythm, no murmurs and peripheral pulses 2+ throughout GI GI Narrative: Abdomen soft and nondistended. Mild tenderness noted near incision site, stable. Incision site appears clean and dry. Stable. Back/Spine normal ROM Extremity normal to inspection and no pedal edema Skin no rashes or lesions noted Neuro no focal motor deficits and no sensory deficits noted Speech: speech normal Psych mental status grossly normal Assessment & Plan Assessment/Plan (1) Anemia due to acute blood loss: (2) Acute gastrointestinal bleeding: (3) ESRD (end stage renal disease): PLAN: Plan Patient is a 73-year-old female who presented [facility] ED on 06/23/2024 from dialysis with worsening anemia. 1. Acute blood loss anemia secondary to lower GI bleed from right-sided colonic mass ? GI and general surgery following. Hemoglobin 5.7 on admit. Prior baseline hemoglobin around 9-10. Improved to 7.6 after 2 units of packed red blood cells given on admission. EGD unremarkable on 06/23. Colonoscopy on 06/24 showed an ascending colonic mass highly concerning for malignancy. CT chest abdomen pelvis showed no evidence of mets. S/p hemicolectomy with general surgery on 06/25. Tolerated procedure well, no intraoperative complications. Hemoglobin was low prior to hemicolectomy procedure, was given 2 units of packed red blood cells during her dialysis. Most recent hemoglobin 8.3 on 06/28. Continue to monitor CBC daily. Passing flatus on 06/28, increased to transitional diet. Further advancement of diet per general surgery recommendations. Continue to hold Eliquis for now. 2. Paroxysmal A-fib on Eliquis ? Reportedly diagnosed about 2 weeks prior to this admission. Has been either in sinus tachycardia or normal sinus rhythm since admission on telemetry. Holding Eliquis given ongoing GI bleed from colonic mass and recent surgery as noted above. Will determine need for anticoagulation prior to discharge. No need for rate controlling agent at this time. 3. ESRD on HD ? Nephrology following. On HD MWF, continuing this schedule while inpatient. 4. Restrictive lung disease ? Reported history but we have no notes in our system regarding this. Has been stable on room air since admission. Continue outpatient follow-up. 5. Chronic debility ? PT/OT/case management following. Patient follows with home health care and plan will be to resume home health care on discharge. Chronic medical conditions: ? Morbid obesity: BMI 40 on admit. Complicates hospital course, care and prognosis. ? GERD: Continue p.o. PPI daily. ? Type 2 diabetes mellitus: On home sitagliptin. Blood sugars have been stable since admission, no need for sliding scale insulin. DVT prophylaxis: SCDs CODE STATUS: Full code, verified Expected disposition: Home with home health care, 1 to 2 days Total clinical time spent by myself addressing the patient's medical issues, reviewing all the data, and collaborating with patient's care team: 35 minutes. Charges/Coding Visit Charges Inpatient E&M: 70916 Subs Hosp L2
--- NOTE | 2024-06-29 14:50 | PN.RENAL_ITS ---
Subjective Subjective no new events Objective Data Objective Data Vital Signs: Vital Signs Temp Pulse Resp BP Pulse Ox O2 Del Method O2 Flow Rate 97.1 F L 98 16 105/64 97 Nasal Cannula 2 06/29/24 13:56 06/29/24 13:56 06/29/24 13:56 06/29/24 13:56 06/29/24 13:56 06/29/24 13:56 06/29/24 13:56 Oxygen Flow Rate (L/min) 2 Oxygen Delivery Method Nasal Cannula Weight: 101.7 kg Body Mass Index (BMI) 41.0 Intake & Output: Intake and Output for Last 24 Hours 06/27/24 06/28/24 06/29/24 23:59 23:59 23:59 Intake Total 580 / 700 240 / 240 Output Total 0 / 0 1850 / 1850 Balance 580 / 700 -1610 / -1610 Lab / Micro Data 06/29/24 06:30 06/29/24 06:30 Labs: Laboratory Results - last 24 hr 06/29/24 06:30: WBC 11.0, RBC 2.87 L, Hgb 8.3 L, Hct 28.0 L, MCV 97.6, MCH 28.9, MCHC 29.6 L, RDW Std Deviation 71.3 H, RDW Coeff of Ernie 20.0 H, Plt Count 261, MPV 10.6, Immature Gran % (Auto) 0.500, Neut % (Auto) 81.3 H, Lymph % (Auto) 4.7 L, [place] % (Auto) 7.7, Eos % (Auto) 5.3 H, Baso % (Auto) 0.5, Absolute Neuts (auto) 8.9 H, Absolute Lymphs (auto) 0.52 L, Nucleated RBC % 0.2, Differential Comment SCANNED, Hypochromasia 1+, Anisocytosis 2+, Microcytosis 1+, Macrocytosis 1+, Sodium 135 L, Potassium 3.7, Chloride 102, Carbon Dioxide 23.0, Anion Gap 10, BUN 36 H, Creatinine 4.90 H, Estim Creat Clear Calc 11.59, Est GFR (MDRD) Af Amer 11 L, Est GFR (MDRD) Non-Af 9 L, BUN/Creatinine Ratio 7.3 L, G lucose 145 H, Calcium 8.9, Magnesium 2.4 Micro: Microbiology 06/23/24 14:56 Stool Stool Occult Blood (JAZMÍN) - Final Radiography Diagnostic Testing: Radiology Impression KUB X-Ray 06/29/24 08:26 IMPRESSION: Findings suggestive of ileus pattern. Electronically Signed: Louis Serrano MD at 13:54 EDT , Physical Exam Narrative Alert oriented x 3, no apparent stress S1, S2, RRR Lung sounds clear anteriorly and posteriorly. On room air Abdomen soft, nontender ++edema bilateral legs Right forearm AV graft positive thrill and bruit Assessment & Plan Assessment/Plan (1) ESRD (end stage renal disease): (2) Anemia due to acute blood loss: PLAN: Plan - ESRD; dialyzes Friday schedule at [facility] [place] in [place] under the direction of Dr. Trinh. - acute anemia. Normal EGD. Colonoscopy: Colon mass. Patient underwent right hemicolectomy 06/25. Eliquis remains on hold. Patient has received multiple units PRBC, hemoglobin was 5.7. Hemoglobin better
[2024-06-30] VITALS (15 sets, daily range): BP systolic 83–322; BP diastolic 49–90; PULSE 85–106; RESP 14–18; TEMP 36.1–36.7; O2SAT 95–99; BMI 42.0; BMI 40.7
[2024-06-30] MEDS: Metoclopramide 10 MG/2 ML Vial 5 MG IV (05:43)
[2024-06-30] MEDS: 0.9% Saline Lock 10 ML Syringe IV (05:43)
--- NOTE | 2024-06-30 07:52 | PCM.PN.SRG ---
Subjective Subjective Patient seen and examined during AM rounds. She is found resting on the bed in the chair. She shares that she has some soreness of her abdomen this morning. She continues to pass flatus regularly and has occasional burping but has not had any bowel movements. She denies any nausea. Objective Data Objective Data Vital Signs: Vital Signs Temp Pulse Resp BP Pulse Ox O2 Del Method O2 Flow Rate 97.0 F L 97 16 103/51 L 98 Nasal Cannula 2 06/30/24 03:00 06/30/24 03:00 06/30/24 03:00 06/30/24 03:00 06/30/24 03:00 06/30/24 03:00 06/30/24 03:00 Oxygen Flow Rate (L/min) 2 Oxygen Delivery Method Nasal Cannula Weight: 224 lb 3.362 oz Body Mass Index (BMI) 41.0 Intake & Output: Intake and Output for Last 24 Hours 06/28/24 06/29/24 06/30/24 23:59 23:59 23:59 Intake Total 240 / 240 390 / 390 Output Total 1850 / 1850 0 / 0 Balance -1610 / -1610 0 / 250 390 / 390 Lab / Micro Data 06/29/24 06:30 06/29/24 06:30 Labs: Laboratory Results - last 24 hr 06/29/24 06:30: Differential Comment SCANNED, Hypochromasia 1+, Anisocytosis 2+, Microcytosis 1+, Macrocytosis 1+ Micro: Microbiology 06/23/24 14:56 Stool Stool Occult Blood (JAZMÍN) - Final Radiography Diagnostic Testing: Radiology Impression KUB X-Ray 06/29/24 08:26 IMPRESSION: Findings suggestive of ileus pattern. Electronically Signed: Louis Serrano MD at 13:54 EDT , Physical Exam Const oriented x3 and no apparent distress Resp normal respiratory effort GI GI Narrative: Mildly distended, midline incision dressing is taken down and is intact without erythema or drainage. Soft and mildly tender to palpation of the right upper quadrant Assessment & Plan Assessment/Plan (1) S/P right hemicolectomy: (2) History of liver biopsy: PLAN: Plan Patient is postoperative day 5 from laparoscopic assisted right hemicolectomy. She appears to have a postoperative ileus as we await return of bowel function. Interestingly, she denies significant bloating or nausea but does appear to have some mild abdominal distention. KUB obtained yesterday shows predominantly gas?filled colon with a few mildly dilated loops of small bowel. Patient is encouraged to ambulate and minimize narcotic were able. Will continue to follow. Provide patient's hemoglobin is stable again today she is appropriate for Lovenox Amadeo Manzanares MD General Surgery Endocrine Surgery Pager: [facility] [address] [place] [address], [address] [place] [id number] Office: [phone] Charges/Coding Visit Charges Inpatient E&M: 68351 Subs Hosp L2
[2024-06-30] MEDS: Acetaminophen 325 MG Tablet 650 MG PO ×2 (08:51→21:29)
[2024-06-30] MEDS: 0.9% Normal Saline 1,000 ML IV.SOLN. 1000 ML OPERA.SITE (08:56)
[2024-06-30] MEDS: Heparin Injection (Vial) 5,000 UNIT/ML VIAL 5000 UNIT SC ×3 (10:18→21:30)
[2024-06-30] MEDS: KETOROLAC TROMETHAMINE LEFT EYE ×4 (10:19→21:32)
--- NOTE | 2024-06-30 10:30 | PN.RENAL_ITS ---
Subjective Subjective Resting in bed undergoing hemodialysis and tolerating treatment well. No complaints. Objective Data Objective Data Vital Signs: Vital Signs Temp Pulse Resp BP Pulse Ox O2 Del Method O2 Flow Rate 97.5 F L 97 18 113/62 99 Nasal Cannula 3 06/30/24 08:25 06/30/24 10:00 06/30/24 10:00 06/30/24 10:00 06/30/24 10:00 06/30/24 10:00 06/30/24 10:00 Oxygen Flow Rate (L/min) 3 Oxygen Delivery Method Nasal Cannula Weight: 104.1 kg Body Mass Index (BMI) 42.0 Intake & Output: Intake and Output for Last 24 Hours 06/28/24 06/29/24 06/30/24 23:59 23:59 23:59 Intake Total 240 / 240 390 / 390 Output Total 1850 / 1850 0 / 0 Balance -1610 / -1610 0 / 250 390 / 390 Lab / Micro Data 06/29/24 06:30 06/29/24 06:30 Micro: Microbiology 06/23/24 14:56 Stool Stool Occult Blood (JAZMÍN) - Final Radiography Diagnostic Testing: Radiology Impression KUB X-Ray 06/29/24 08:26 IMPRESSION: Findings suggestive of ileus pattern. Electronically Signed: Louis Serrano MD at 13:54 EDT , Physical Exam Narrative Alert oriented x 3, no apparent stress S1, S2, RRR Lung sounds clear anteriorly and posteriorly. On room air Abdomen soft, nontender ++edema bilateral legs Right forearm AV graft Assessment & Plan Assessment/Plan (1) ESRD (end stage renal disease): (2) Anemia due to acute blood loss: PLAN: Plan - ESRD; dialyzes Friday schedule at [facility] kidney center in [place] under the direction of Dr. Trinh. Undergoing hemodialysis today with around 2.5 L fluid removal as patient/blood pressure tolerates. - acute anemia. Normal EGD. Colonoscopy: Colon mass. Patient underwent right hemicolectomy 06/25. Eliquis remains on hold. Patient has received multiple units PRBC, hemoglobin was 5.7. Hemoglobin better at 8.3
--- NOTE | 2024-06-30 11:04 | PN.HOSP_ITS ---
Reason for Visit Reason for Visit: Diagnoses Acute posthemorrhagic anemia (06/23/24) Anemia, unspecified (06/23/24) Other specified diseases of intestine (06/23/24) Gastrointestinal hemorrhage, unspecified (06/23/24) End stage renal disease (06/23/24) Acquired absence of other specified parts of digestive tract (06/23/24) Other specified postprocedural states (06/23/24) Subjective Subjective Saw patient at bedside this morning. Was having dialysis done when I saw her. Appeared similar to yesterday. Stated she still not had a bowel movement but was continue to pass gas and tolerating transitional diet without issue. Noted that surgery told her she needed to increase her activity level to help stimulate more bowel function and she is planning to do that after dialysis. No other new concerns today. Objective Data Objective Data Vital Signs: Vital Signs Temp Pulse Resp BP Pulse Ox O2 Del Method O2 Flow Rate 97.5 F L 96 18 108/56 L 99 Nasal Cannula 3 06/30/24 08:25 06/30/24 11:00 06/30/24 11:00 06/30/24 11:00 06/30/24 11:00 06/30/24 11:00 06/30/24 11:00 Oxygen Flow Rate (L/min) 3 Oxygen Delivery Method Nasal Cannula Weight: 104.1 kg Body Mass Index (BMI) 42.0 Intake & Output: Intake and Output for Last 24 Hours 06/28/24 06/29/24 06/30/24 23:59 23:59 23:59 Intake Total 240 / 240 390 / 390 Output Total 1850 / 1850 0 / 0 Balance -1610 / -1610 0 / 250 390 / 390 Lab / Micro Data 06/29/24 06:30 06/29/24 06:30 Micro: Microbiology 06/23/24 14:56 Stool Stool Occult Blood (JAZMÍN) - Final Radiography Diagnostic Testing: Radiology Impression KUB X-Ray 06/29/24 08:26 IMPRESSION: Findings suggestive of ileus pattern. Electronically Signed: Louis Serrano MD at 13:54 EDT , Physical Exam Const alert, oriented x3 and no apparent distress Constitutional Narrative: Elderly female, morbidly obese, mildly fatigued but otherwise laying comfortably in bed, conversing normally, in no acute distress. Stable. General Appearance: cooperative and comfortable HEENT normocephalic, head/scalp atraumatic, hearing grossly normal bilaterally, nasal mucous membranes and turbinates normal and moist oral mucous membranes Eyes PERRL, EOMs intact bilaterally and conjunctivae normal Neck full ROM Chest inspection of chest normal Resp normal respiratory effort, normal air movement, no use of accessory muscles and clear to auscultation bilaterally Cardio regular rate, regular rhythm, no murmurs and peripheral pulses 2+ throughout GI GI Narrative: Abdomen soft and nondistended. Mild tenderness noted near incision site, stable. Incision site appears clean and dry. Stable. Back/Spine normal ROM Extremity normal to inspection and no pedal edema Skin no rashes or lesions noted Neuro no focal motor deficits and no sensory deficits noted Speech: speech normal Psych mental status grossly normal Assessment & Plan Assessment/Plan (1) Anemia due to acute blood loss: (2) Acute gastrointestinal bleeding: (3) ESRD (end stage renal disease): PLAN: Plan Patient is a 73-year-old female who presented [facility] ED on 06/23/2024 from dialysis with worsening anemia. 1. Acute blood loss anemia secondary to lower GI bleed from right-sided colonic mass ? GI and general surgery following. Hemoglobin 5.7 on admit. Prior baseline hemoglobin around 9-10. Improved to 7.6 after 2 units of packed red blood cells given on admission. EGD unremarkable on 06/23. Colonoscopy on 06/24 showed an ascending colonic mass highly concerning for malignancy. CT chest abdomen pelvis showed no evidence of mets. S/p hemicolectomy with general surgery on 06/25. Tolerated procedure well, no intraoperative complications. Hemoglobin was low prior to hemicolectomy procedure, was given 2 units of packed red blood cells during her dialysis. Most recent hemoglobin 8.3 on 06/28. Continue to monitor CBC daily. Passing flatus on 06/28, increased to transitional diet. Further advancement of diet per general surgery recommendations. Continue to hold Eliquis for now. 2. Paroxysmal A-fib on Eliquis ? Reportedly diagnosed about 2 weeks prior to this admission. Has been either in sinus tachycardia or normal sinus rhythm since admission on telemetry. Holding Eliquis given ongoing GI bleed from colonic mass and recent surgery as noted above. Will determine need for anticoagulation prior to discharge. No need for rate controlling agent at this time. 3. ESRD on HD ? Nephrology following. On HD MWF, continuing this schedule while inpatient. 4. Restrictive lung disease ? Reported history but we have no notes in our system regarding this. Has been stable on room air since admission. Continue outpatient follow-up. 5. Chronic debility ? PT/OT/case management following. Patient follows with home health care and plan will be to resume home health care on discharge. Chronic medical conditions: ? Morbid obesity: BMI 40 on admit. Complicates hospital course, care and prognosis. ? GERD: Continue p.o. PPI daily. ? Type 2 diabetes mellitus: On home sitagliptin. Blood sugars have been stable since admission, no need for sliding scale insulin. DVT prophylaxis: Heparin subcu CODE STATUS: Full code, verified Expected disposition: Home with home health care, 1 to 2 days Total clinical time spent by myself addressing the patient's medical issues, reviewing all the data, and collaborating with patient's care team: 35 minutes. Charges/Coding Visit Charges Inpatient E&M: 52125 Subs Hosp L2
[2024-06-30] MEDS: Pantoprazole Sodium 40 MG Tablet PO (13:14)
[2024-06-30] MEDS: Docusate Sodium 100 MG Capsule PO ×2 (13:21→21:30)
--- NOTE | 2024-06-30 19:00 | NURSING ---
emergency documentation in effect since 06/30/2024, 1900.
[2024-07-01] VITALS (8 sets, daily range): BP systolic 102–110; BP diastolic 58–87; PULSE 97–103; RESP 16–18; TEMP 35.8–36.6; O2SAT 95–100
[2024-07-01] MEDS: Heparin Injection (Vial) 5,000 UNIT/ML VIAL 5000 UNIT SC ×3 (06:03→21:48)
[2024-07-01 07:33] LABS: Hematocrit 27.9 % (37-47); Hemoglobin 8.1 g/dL (12.0-15.0); Mean Corpuscular Hgb 28.5 pg (27.0-32.0); Mean Corpuscular Volume 98.2 fL (81-99); Mean Platelet Vol. 10.5 fl (6.2-12.0); POSITIVE MORPHOLOGY YES; Platelet Count 223 K/mm3 (150-450); RBC Distribution Width CV 19.1 % (11.6-14.6); Red Blood Count 2.84 M/mm3 (4.2-5.4); White Blood Count 10.4 K/mm3 (4.4-11.0)
--- NOTE | 2024-07-01 07:50 | PCM.PN.SRG ---
Subjective Subjective Patient seen and examined during AM rounds. She is found resting in bed. She declares that she is still been eating well and specifically shares that she had chicken and mashed potatoes yesterday without any nausea. Still, she denies any bowel movements. She continues to pass flatus but is also occasionally burping. She notes that prior to her operation she would have to really push to have a bowel movement but always had bowel movements each day. Objective Data Objective Data Vital Signs: Vital Signs Temp Pulse Resp BP Pulse Ox O2 Del Method O2 Flow Rate 97.8 F 103 H 18 110/60 95 Room Air 2 07/01/24 03:25 07/01/24 03:25 07/01/24 03:25 07/01/24 03:25 07/01/24 03:35 07/01/24 03:35 06/30/24 20:05 Oxygen Flow Rate (L/min) 2 Oxygen Delivery Method Room Air Weight: 222 lb 14.197 oz Body Mass Index (BMI) 40.7 Intake & Output: Intake and Output for Last 24 Hours 06/29/24 06/30/24 07/01/24 23:59 23:59 23:59 Intake Total 1230 / 1230 120 / 120 Output Total 0 / 0 3040 / 3040 Balance 0 / 250 -1810 / -1810 120 / 120 Lab / Micro Data 07/01/24 07:09 07/01/24 07:09 Micro: Microbiology 06/23/24 14:56 Stool Stool Occult Blood (JAZMÍN) - Final Physical Exam Const oriented x3 and no apparent distress Resp normal respiratory effort GI GI Narrative: Mildly distended, soft, mildly tender to palpation right upper quadrant, well?appearing incisions that remain approximated with skin hanny and are nondraining. There is evidence of prior serous drainage from patient's midline lower abdominal port site but no active drainage. Assessment & Plan Assessment/Plan (1) S/P right hemicolectomy: (2) History of liver biopsy: PLAN: Plan Patient is postoperative day 6 from laparoscopic assisted right hemicolectomy. Still, she appears to have a postoperative ileus as we await return of bowel function. Tolerating a transitional diet without difficulty. Suspect that patient had an slower colonic transit preop that may have been compounded by use of narcotics perioperatively. Patient really not using narcotics at this point. Will repeat KUB and tentatively plan for suppository. Patient encouraged to continue ambulation. Hemoglobin appears stable after initiation of heparin. Patient to be granted shower privileges today. Operative path remains pending. Will continue to follow. Amadeo Manzanares MD General Surgery Endocrine Surgery Pager: [facility] [address] [place] [address], [address] [place] [id number] Office: [phone] Charges/Coding Visit Charges Inpatient E&M: 30254 Subs Hosp L2
[2024-07-01 08:23] LABS: Scan Indicated on CBC? Y/N YES- FLAGS NOTED
[2024-07-01 08:25] LABS: Anion Gap 7 (5-15); BUN 32 mg/dL (7-18); BUN/Creat Ratio 6.5 RATIO (10-20); Calcium,Total 9.1 mg/dL (8.5-10.1); Chloride 102 mmol/L (98-107); Creatinine, Serum 4.95 mg/dL (0.55-1.02); EST Glomerular Filtration Rate 9 mL/min (>60); Est Glom Filt Rate - Afr Amer 11 mL/min (>60); Estimated Creatinine Clearance 11.43 ml/min; Glucose 131 mg/dL (74-106); Potassium 3.4 mmol/L (3.5-5.1); Sodium Level 133 mmol/L (136-145)
--- NOTE | 2024-07-01 09:10 | RAD_ITS ---
STUDY: X-RAY - ABDOMEN/PELVIS REASON FOR EXAM: Female, 73 years old. Follow-up postop ileus TECHNIQUE: Single AP view of the abdomen / pelvis. COMPARISON: Comparison is made with prior study dated June 29, 2024. FINDINGS: Surgical clips are seen overlying the left side of the abdomen. There is an unremarkable bowel gas pattern. The visualized liver, spleen and kidneys are grossly normal in size and morphology. Normal soft tissue structures. There are diffuse degenerative changes of the visualized lumbar spine. Osteoarthritis of both hip joints. RAD/Abdomen Single View IMPRESSION: Nonspecific bowel gas pattern. Electronically Signed: Louis Serrano MD at 14:33 EDT ,
[2024-07-01] MEDS: Pantoprazole Sodium 40 MG Tablet PO (09:59)
[2024-07-01] MEDS: Docusate Sodium 100 MG Capsule PO ×2 (09:59→21:46)
[2024-07-01 10:00] LABS: Differential Comment SCANNED
[2024-07-01] MEDS: KETOROLAC TROMETHAMINE LEFT EYE ×4 (10:00→21:46)
--- NOTE | 2024-07-01 11:01 | CASEMGMT ---
RN informed SW that patient would like to go somewhere for rehab. SW met with patient. Introduced self and role at [facility]. Patient had many visitors present so SW asked if it was okay to talk in front of visitors. Patient was fine with SW talking in front of visitors. Patient confirmed she would like to go to [facility] as she has been there before. Patient declined a list unless [facility] cannot take her. Patient goes to [facility] in [place] and her chair time is 930. SW let patient know a referral will be made. SELVIN asked Charis to send a referral to [facility]. Anca Calvin GAS ENGINE PERFORMANCE ENGINEER GAUTAM
--- NOTE | 2024-07-01 11:12 | CASEMGMT ---
Addendum entered by Charis Crooks 07/02/24 10:38: Requested updates sent to [facility]. Charis Crooks DC Planning Asst. Addendum entered by Charis Crooks 07/01/24 12:11: [facility] has accepted. Charis Crooks DC Planning Asst. Original Note: Discharge Planning [facility]. Charis Crooks DC Planning Asst.
--- NOTE | 2024-07-01 12:48 | PCM.PN.HOSP ---
Reason for Visit Reason for Visit: Diagnoses Acute posthemorrhagic anemia (06/23/24) Anemia, unspecified (06/23/24) Other specified diseases of intestine (06/23/24) Gastrointestinal hemorrhage, unspecified (06/23/24) End stage renal disease (06/23/24) Acquired absence of other specified parts of digestive tract (06/23/24) Other specified postprocedural states (06/23/24) Subjective Subjective Saw patient at bedside this morning, multiple friends present. Patient was sitting up comfortably in bedside chair and appeared to have slightly improved energy level this morning. Stated she still had not had a bowel movement but was continue to pass gas. She did note feeling weaker than her baseline and after discussion with therapy and case management she is planning for SNF placement on discharge. No other new concerns today. Objective Data Objective Data Vital Signs: Vital Signs Temp Pulse Resp BP Pulse Ox O2 Del Method O2 Flow Rate 96.4 F L 98 18 109/58 L 100 Nasal Cannula 2 07/01/24 08:38 07/01/24 08:38 07/01/24 08:38 07/01/24 08:38 07/01/24 11:54 07/01/24 08:38 07/01/24 11:54 Oxygen Flow Rate (L/min) 2 Oxygen Delivery Method Nasal Cannula Weight: 101.1 kg Body Mass Index (BMI) 40.7 Intake & Output: Intake and Output for Last 24 Hours 06/29/24 06/30/24 07/01/24 23:59 23:59 23:59 Intake Total 1230 / 1230 645 / 645 Output Total 0 / 0 3040 / 3040 Balance 0 / 250 -1810 / -1810 645 / 645 Lab / Micro Data 07/01/24 07:09 07/01/24 07:09 Labs: Laboratory Results - last 24 hr 07/01/24 07:09: WBC 10.4, RBC 2.84 L, Hgb 8.1 L, Hct 27.9 L, MCV 98.2, MCH 28.5, MCHC 29.0 L, RDW Std Deviation 68.0 H, RDW Coeff of Ernie 19.1 H, Plt Count 223, MPV 10.5, Differential Comment SCANNED, Sodium 133 L, Potassium 3.4 L, Chloride 102, Carbon Dioxide 24.0, Anion Gap 7, BUN 32 H, Creatinine 4.95 H, Estim Creat Clear Calc 11.43, Est GFR (MDRD) Af Amer 11 L, Est GFR (MDRD) Non-Af 9 L, BUN/Creatinine Ratio 6.5 L, Glucose 131 H, Calcium 9.1 Micro: Microbiology 06/23/24 14:56 Stool Stool Occult Blood (JAZÍMN) - Final Physical Exam Const alert, oriented x3 and no apparent distress Constitutional Narrative: Elderly female, morbidly obese, mildly fatigued but otherwise sitting up comfortably in bedside chair, conversing normally, in no acute distress. Stable. General Appearance: cooperative and comfortable HEENT normocephalic, head/scalp atraumatic, hearing grossly normal bilaterally, nasal mucous membranes and turbinates normal and moist oral mucous membranes Eyes PERRL, EOMs intact bilaterally and conjunctivae normal Neck full ROM Chest inspection of chest normal Resp normal respiratory effort, normal air movement, no use of accessory muscles and clear to auscultation bilaterally Cardio regular rate, regular rhythm, no murmurs and peripheral pulses 2+ throughout GI GI Narrative: Abdomen soft, nondistended and nontender. Hypoactive bowel sounds. Back/Spine normal ROM Extremity normal to inspection and no pedal edema Skin no rashes or lesions noted Neuro no focal motor deficits and no sensory deficits noted Speech: speech normal Psych mental status grossly normal Assessment & Plan Assessment/Plan (1) Anemia due to acute blood loss: (2) Acute gastrointestinal bleeding: (3) ESRD (end stage renal disease): PLAN: Plan Patient is a 73-year-old female who presented [facility] ED on 06/23/2024 from dialysis with worsening anemia. 1. Acute blood loss anemia secondary to lower GI bleed from right-sided colonic mass, postoperative ileus ? GI and general surgery following. Hemoglobin 5.7 on admit. Prior baseline hemoglobin around 9-10. Improved to 7.6 after 2 units of packed red blood cells given on admission. EGD unremarkable on 06/23. Colonoscopy on 06/24 showed an ascending colonic mass highly concerning for malignancy. CT chest abdomen pelvis showed no evidence of mets. S/p hemicolectomy with general surgery on 06/25. Tolerated procedure well, no intraoperative complications. Hemoglobin was low prior to hemicolectomy procedure, was given 2 units of packed red blood cells during her dialysis. Most recent hemoglobin 8.3 on 06/28. Continue to monitor CBC daily. Has been passing flatus since 06/28 and tolerating transitional diet but still with no bowel movements as of 07/01. KUB 07/01 with nonspecific bowel gas pattern noted consistent with ileus. Bowel regimen and further advancement of diet per general surgery recommendations. Continue to hold Eliquis for now. 2. Paroxysmal A-fib on Eliquis ? Reportedly diagnosed about 2 weeks prior to this admission. Has been either in sinus tachycardia or normal sinus rhythm since admission on telemetry. Holding Eliquis given ongoing GI bleed from colonic mass and recent surgery as noted above. Will determine need for anticoagulation prior to discharge. No need for rate controlling agent at this time. 3. ESRD on HD ? Nephrology following. On HD MWF, continuing this schedule while inpatient. 4. Restrictive lung disease ? Reported history but we have no notes in our system regarding this. Has been stable on room air since admission. Continue outpatient follow-up. 5. Acute on chronic debility ? PT/OT/case management following. Patient followed with home health care prior to admission. Patient with worsening functional status than baseline postoperatively. Planning for SNF placement on discharge. Chronic medical conditions: ? Morbid obesity: BMI 40 on admit. Complicates hospital course, care and prognosis. ? GERD: Continue p.o. PPI daily. ? Type 2 diabetes mellitus: On home sitagliptin. Blood sugars have been stable since admission, no need for sliding scale insulin. DVT prophylaxis: Heparin subcu CODE STATUS: Full code, verified Expected disposition: SNF, 1 to 2 days Total clinical time spent by myself addressing the patient's medical issues, reviewing all the data, and collaborating with patient's care team: 35 minutes. Charges/Coding Visit Charges Inpatient E&M: 79778 Subs Hosp L2
[2024-07-01] MEDS: Bisacodyl 10 MG Suppository RC (14:05)
--- NOTE | 2024-07-01 15:55 | PN.RENAL_ITS ---
Subjective Subjective No new complaints Objective Data Objective Data Vital Signs: Vital Signs Temp Pulse Resp BP Pulse Ox O2 Del Method O2 Flow Rate 96.4 F L 98 18 109/58 L 100 Nasal Cannula 2 07/01/24 08:38 07/01/24 08:38 07/01/24 08:38 07/01/24 08:38 07/01/24 11:54 07/01/24 08:38 07/01/24 11:54 Oxygen Flow Rate (L/min) 2 Oxygen Delivery Method Nasal Cannula Weight: 101.1 kg Body Mass Index (BMI) 40.7 Intake & Output: Intake and Output for Last 24 Hours 06/29/24 06/30/24 07/01/24 23:59 23:59 23:59 Intake Total 1230 / 1230 645 / 645 Output Total 0 / 0 3040 / 3040 Balance 0 / 250 -1810 / -1810 645 / 645 Lab / Micro Data 07/01/24 07:09 07/01/24 07:09 Labs: Laboratory Results - last 24 hr 07/01/24 07:09: WBC 10.4, RBC 2.84 L, Hgb 8.1 L, Hct 27.9 L, MCV 98.2, MCH 28.5, MCHC 29.0 L, RDW Std Deviation 68.0 H, RDW Coeff of Ernie 19.1 H, Plt Count 223, MPV 10.5, Differential Comment SCANNED, Sodium 133 L, Potassium 3.4 L, Chloride 102, Carbon Dioxide 24.0, Anion Gap 7, BUN 32 H, Creatinine 4.95 H, Estim Creat Clear Calc 11.43, Est GFR (MDRD) Af Amer 11 L, Est GFR (MDRD) Non-Af 9 L, B UN/Creatinine Ratio 6.5 L, Glucose 131 H, Calcium 9.1 Micro: Microbiology 06/23/24 14:56 Stool Stool Occult Blood (JAZMÍN) - Final Radiography Diagnostic Testing: Radiology Impression KUB X-Ray 07/01/24 09:10 IMPRESSION: Nonspecific bowel gas pattern. Electronically Signed: Louis Serrano MD at 14:33 EDT , Physical Exam Narrative Alert oriented x 3, no apparent stress S1, S2, RRR Lung sounds clear anteriorly and posteriorly. On room air Abdomen soft, nontender ++edema bilateral legs Right forearm AV graft Assessment & Plan Assessment/Plan (1) ESRD (end stage renal disease): (2) Anemia due to acute blood loss: PLAN: Plan - ESRD; dialyzes Friday schedule at [facility] [place] in [place] under the direction of Dr. Trinh. Dialysis tomorrow - acute anemia. Normal EGD. Colonoscopy: Colon mass. Patient underwent right hemicolectomy 06/25.
[2024-07-01] MEDS: Acetaminophen 325 MG Tablet 650 MG PO (21:47)
[2024-07-02] VITALS (14 sets, daily range): BP systolic 84–246; BP diastolic 32–63; PULSE 64–100; RESP 16–18; TEMP 36.4–36.8; O2SAT 86–100; BMI 40.7
[2024-07-02] MEDS: Ondansetron 4 MG/2 ML Vial IV (02:07)
[2024-07-02] MEDS: 0.9% Saline Lock 10 ML Syringe IV ×3 (02:07→17:16)
[2024-07-02] MEDS: Heparin Injection (Vial) 5,000 UNIT/ML VIAL 5000 UNIT SC (06:12)
[2024-07-02] MEDS: Acetaminophen 325 MG Tablet 650 MG PO (06:13)
[2024-07-02] MEDS: KETOROLAC TROMETHAMINE LEFT EYE ×2 (09:07→15:29)
[2024-07-02] MEDS: Pantoprazole Sodium 40 MG Tablet PO (09:07)
[2024-07-02] MEDS: Docusate Sodium 100 MG Capsule PO (09:07)
--- NOTE | 2024-07-02 09:46 | CASEMGMT ---
Addendum entered by Anca Calvin 07/02/24 15:53: SELVIN completed a 7000 in [employer] system. Anca FLOREZ Original Note: SELVIN received approval for patient to go to [facility]. Patient's authorization reference number is [id number]. SELVIN will notify physician. Plan: d/c to [facility] under skilled level of care. Anca FLOREZ
--- NOTE | 2024-07-02 10:18 | PN.SURG_ITS ---
Subjective Subjective Patient is pleased to report this morning that she experienced 2 bowel movements last evening and early this morning. She shares that she is feeling overall better but does remark of some nausea. She states this seemed to follow consumption of a no bake cookie. Objective Data Objective Data Vital Signs: Vital Signs Temp Pulse Resp BP Pulse Ox O2 Del Method O2 Flow Rate 98.3 F 100 16 98/45 L 96 Nasal Cannula 2 07/02/24 08:59 07/02/24 08:59 07/02/24 08:59 07/02/24 08:59 07/02/24 10:03 07/02/24 10:03 07/02/24 10:03 Oxygen Flow Rate (L/min) [ 2 AMBULATING with Oxygen #2] Oxygen Flow Rate (L/min) [ 1 AMBULATING with Oxygen #1] Oxygen Flow Rate (L/min) 2 Oxygen Delivery Method Nasal Cannula Weight: 222 lb 10.67 oz Body Mass Index (BMI) 40.7 Intake & Output: Intake and Output for Last 24 Hours 06/30/24 07/01/24 07/02/24 23:59 23:59 23:59 Intake Total 1230 / 1230 1320 / 1320 Output Total 3040 / 3040 Balance -1810 / -1810 1320 / 1320 Lab / Micro Data 07/01/24 07:09 07/01/24 07:09 Micro: Microbiology 06/23/24 14:56 Stool Stool Occult Blood (JAZMÍN) - Final Radiography Diagnostic Testing: Radiology Impression KUB X-Ray 07/01/24 09:10 IMPRESSION: Nonspecific bowel gas pattern. Electronically Signed: Louis Serrano MD at 14:33 EDT , Physical Exam Const oriented x3 and no apparent distress Constitutional Narrative: Patient appears relieved Resp normal respiratory effort GI GI Narrative: Decreased abdominal distention, midline laparotomy incision remains well- approximated with skin hanny but there is some irritation of the incision superiorly about the hanny. Largely nontender with palpation. Assessment & Plan Assessment/Plan (1) S/P right hemicolectomy: (2) History of liver biopsy: PLAN: Plan Patient is postoperative day 7 from laparoscopic assisted right hemicolectomy. Patient has experienced complete return of bowel function with 2 bowel movements. She is eating regularly. However, this morning she does report that she has some nausea. From a surgical standpoint, patient would be cleared for discharge if her nausea improves and she is feeling comfortable. Would request that patient is seen back in my outpatient clinic in 1 week for wound check and staple removal. Amadeo Manzanares MD General Surgery Endocrine Surgery Pager: [facility] [address] [place] [address] Office: [phone] Charges/Coding Visit Charges Inpatient E&M: 47573 Subs Hosp L2
[2024-07-02] MEDS: 0.9% Normal Saline 1,000 ML IV.SOLN. 1000 ML OPERA.SITE (12:19)
[2024-07-02] MEDS: PureFlow B 3K Dialysis Soln 1 BAG 6 BAG PF (12:20)
[2024-07-02] MEDS: Midodrine HCl 5 MG Tablet 10 MG PO ×2 (13:03→16:27)
--- NOTE | 2024-07-02 13:28 | PCM.TXEXTCAR ---
Diet Diet Order/Speech Therapy: 06/28/24 09:00 Diet: Transitional Type of Dietary Supplement:: Nepro Diet Comments: no carbonation, 120mL Nepro w/lunch &dinner Routine Orders/Code Status Routine Lab Work: CBC (Please recheck hemoglobin in 7 days.) Code Status: Full Code Wound(s) abdomen: Wound Type: Surgical Incision Therapies Weight Bearing: Full weight bearing Physical Therapy: Eval and Treat Occupational Therapy: Eval and Treat Problem/Diagnosis (1) S/P right hemicolectomy: Status: Acute Code(s): Z90.49 - Acquired absence of other specified parts of digestive tract (2) History of liver biopsy: Status: Acute Code(s): Z98.890 - Other specified postprocedural states Plan Patient is a 73-year-old female who presented [facility] ED on 06/23/2024 from dialysis with worsening anemia. Hospital course as noted below. Patient discharged to SNF in stable condition on 07/02. 1. Acute blood loss anemia secondary to lower GI bleed from right-sided colonic mass; postoperative ileus, improving ? GI and general surgery followed. Hemoglobin 5.7 on admit. Prior baseline hemoglobin around 9-10. Improved to 7.6 after 2 units of packed red blood cells given on admission. EGD unremarkable on 06/23. Colonoscopy on 06/24 showed an ascending colonic mass highly concerning for malignancy. CT chest abdomen pelvis showed no evidence of mets. S/p hemicolectomy with general surgery on 06/25. Tolerated procedure well, no intraoperative complications. Hemoglobin was low prior to hemicolectomy procedure, was given 2 units of packed red blood cells during her dialysis. Most recent hemoglobin 8.1 on 07/01, stable from previous. Was passing flatus since 06/28, finally had first bowel movements on 07/01. Tolerating regular diet well on day of discharge. Held Eliquis during hospitalization and started aspirin on discharge as noted below. Outpatient follow-up with general surgery in 1 week for wound check and staple removal. 2. Paroxysmal A-fib on Eliquis ? Reportedly diagnosed about 2 weeks prior to this admission. Eliquis held during hospitalization as noted above. Reviewed telemetry and patient was in either sinus tachycardia or normal sinus rhythm throughout admission. Will start baby aspirin on discharge. No rate controlling agents required during hospitalization and not needed on discharge. 3. ESRD on HD ? Nephrology followed. On HD MWF, continuing this schedule while inpatient. 4. Restrictive lung disease ? Reported history but we have no notes in our system regarding this. Has been stable on room air since admission. Continue outpatient follow-up. 5. Acute on chronic debility ? PT/OT/case management followed. Patient followed with home health care prior to admission. Patient with worsening functional status than baseline postoperatively. Stable for discharge to SNF on 07/02. Chronic medical conditions: ? Morbid obesity: BMI 40 on admit. Complicated hospital course, care and prognosis. ? GERD: Continue p.o. PPI daily. ? Type 2 diabetes mellitus: On home sitagliptin. Blood sugars stable during admission, no need for sliding scale insulin. Can continue home sitagliptin on discharge. Total clinical time spent by myself addressing the patient's medical issues, reviewing all the data, and collaborating with patient's care team: 35 minutes. Allergies/Procedures Done in Hospital Allergies ibuprofen Allergy (Mild, Verified 06/23/24 14:17) PT UNSURE OF REACTION Phenylpiperazine Antidepressant Allergy (Verified 06/23/24 14:17) NEEDS FOLLOW-UP Tetracyclic Antidepressants Allergy (Verified 06/23/24 14:17) NEEDS FOLLOW-UP Tricyclic Antidepressants and Tricy Allergy (Verified 06/23/24 14:17) NEEDS FOLLOW-UP Procedures: Dialysis, EGD, EKG and - (Laparoscopic right hemicolectomy, chest x-ray, CT chest abdomen pelvis, KUB x 2) Type of Care/Length of Stay Estimated LOS: Convalescent Care Less Than 30 days Type of Care Needed: Skilled Rehab Potential: Fair Prognosis: Fair Additional Orders/Day of Discharge H&P will serve as current which was dated: 06/23/24 Day of Discharge: 07/02/24 Dietary and Speech Recommendations Dietitian Recommendations/Changes: Recommend advance diet as tolerated to Renal/general. Will order 120mL Nepro BID with lunch and dinner for additional nutrition. Discharge Plan Admission Admit Date/Time: 06/23/24 16:12 Primary Reason for Your Visit: Low blood count Attending Provider: Ang Messina Primary Care Provider: Nolvia Deleon NP Consulting Providers: Chris Nixon; Antonino Gaines Jayaprakas; Amadeo Manzanares Discharge Orders/Prescriptions Prescriptions: New docusate sodium 100 mg Capsule 100 mg PO BID 14 Days Qty: 0 0RF pantoprazole 40 mg Tablet,Delayed Release (Dr/Ec) 40 mg PO DAILY 30 Days Qty: 0 0RF aspirin 81 mg tablet,delayed release (DR/EC) 81 mg PO DAILY 90 Days Qty: 90 0RF Continued bisoprolol fumarate 5 mg tablet 2.5 mg PO Rx Instructions: 1/2 tab in the evening on and Friday Renal Vitamin 0.8 mg tablet 1 tab PO DAILY Januvia 25 mg tablet 25 mg PO DAILY Rx Instructions: Checks blood sugar daily and only takes if >150 fluorometholone 0.1 % drops,suspension 1 drp EACH EYE QODAY brimonidine [Alphagan P] 0.1 % drops 1 drp RIGHT EYE BID Patient Comments: instill ONE DROP IN THE RIGHT EYE TWICE DAILY Velphoro 500 mg tablet,chewable 500 mg PO TIDCM ketorolac 0.5 % drops 1 drp ophthalmic (eye) 4X/DAY Discontinued Eliquis 5 mg tablet 5 mg PO BID famotidine 20 mg tablet 20 mg PO QHS prednisone 2.5 mg tablet 2.5 mg PO DAILY Referrals / Follow Up: Nolvia Deleon [employer], [employer] [Primary Care Provider] - Disposition Disposition (needs filled in before D/C Order can be placed): Assisted Facility
--- NOTE | 2024-07-02 13:31 | PN.RENAL_ITS ---
Subjective Subjective No new complaints today. Had bowel movements. Seen on dialysis today. Possible discharge today Objective Data Objective Data Vital Signs: Vital Signs Temp Pulse Resp BP Pulse Ox O2 Del Method O2 Flow Rate 98.3 F 93 16 84/56 L 100 Nasal Cannula 2 07/02/24 08:59 07/02/24 13:00 07/02/24 13:00 07/02/24 13:00 07/02/24 13:00 07/02/24 13:00 07/02/24 13:00 Oxygen Flow Rate (L/min) [ 2 AMBULATING with Oxygen #2] Oxygen Flow Rate (L/min) [ 1 AMBULATING with Oxygen #1] Oxygen Flow Rate (L/min) 2 Oxygen Delivery Method Nasal Cannula Weight: 101 kg Body Mass Index (BMI) 40.7 Intake & Output: Intake and Output for Last 24 Hours 06/30/24 07/01/24 07/02/24 23:59 23:59 23:59 Intake Total 1230 / 1230 1320 / 1320 520 / 520 Output Total 3040 / 3040 Balance -1810 / -1810 1320 / 1320 520 / 520 Lab / Micro Data 07/01/24 07:09 07/01/24 07:09 Micro: Microbiology 06/23/24 14:56 Stool Stool Occult Blood (JAZMÍN) - Final Radiography Diagnostic Testing: Radiology Impression KUB X-Ray 07/01/24 09:10 IMPRESSION: Nonspecific bowel gas pattern. Electronically Signed: Louis Serrano MD at 14:33 EDT , Physical Exam Narrative Alert oriented x 3, no apparent stress S1, S2, RRR Lung sounds clear anteriorly and posteriorly. On room air Abdomen soft, nontender ++edema bilateral legs Right forearm AV graft Assessment & Plan Assessment/Plan (1) ESRD (end stage renal disease): (2) Anemia due to acute blood loss: PLAN: Plan - ESRD; dialyzes Friday schedule at [facility] [place] in [place] under the direction of Dr. Trinh. Dialysis today. See orders. - acute anemia. Normal EGD. Colonoscopy: Colon mass. Patient underwent right hemicolectomy 9/13. Bowel function returned. Possible discharge to rehab today.
--- NOTE | 2024-07-02 13:41 | DS.PCM_ITS ---
Providers Date of Admission: 06/23/24 Date of Discharge: 07/02/24 Primary Care Physician: SABRINA Juarez Consultations 06/23/24 18:43 Consult: Gastroenterology Routine Consulting Provider: [facility] Reason for Consult: GI bleed EMERGENT Consult: No Notified: Yes Date Notified: 06/23/24 Time Notified: 16:30 Method of Notification: ED Physician Initiated Consult: Nephrology Routine Consulting Provider: Bhaskar Putnam Reason for Consult: Dialysis, Leon[facility] patient EMERGENT Consult: No MD Notified: Yes Date Notified: 06/23/24 Time Notified: 18:53 Method of Notification: Answering Service 06/24/24 18:25 Consult: General Surgery Routine Consulting Provider: Amadeo Manzanares Reason for Consult: colonic mass EMERGENT Consult: No MD Notified: Yes Date Notified: 06/24/24 Time Notified: 18:25 Method of Notification: Verbal Reason For Visit: GI BLEED Diagnosis Discharge Diagnosis (1) S/P right hemicolectomy: Status: Acute Code(s): Z90.49 - Acquired absence of other specified parts of digestive tract (2) History of liver biopsy: Status: Acute Code(s): Z98.890 - Other specified postprocedural states (3) Anemia due to acute blood loss: Status: Acute Code(s): D62 - Acute posthemorrhagic anemia (4) ESRD (end stage renal disease): Status: Acute Code(s): N18.6 - End stage renal disease Medications at Discharge Home Medications bisoprolol fumarate 5 mg tablet 2.5 mg PO MOWEFRSA BP 05/17/21 sitagliptin phosphate 25 mg tablet (Januvia) 25 mg PO DAILY diabetes 05/17/21 vitamin B complex-vitamin C-folic acid 0.8 mg tablet (Renal Vitamin) 1 tab PO DAILY Vitamin 05/17/21 brimonidine 0.1 % eye drops (Alphagan P) 1 drp RIGHT EYE BID glaucoma 05/31/21 fluorometholone 0.1 % eye drops,suspension 1 drp EACH EYE QODAY eye drop 05/31/21 ketorolac 0.5 % eye drops 1 drp ophthalmic (eye) 4X/DAY cataract surgery 06/24/24 sucroferric oxyhydroxide 500 mg chewable tablet (Velphoro) 500 mg PO TIDCM Kidneys 06/24/24 apixaban 5 mg tablet (Eliquis) 5 mg PO BID 30 days #60 tabs 07/02/24 docusate sodium 100 mg capsule 100 mg PO BID 14 days #0 caps 07/02/24 pantoprazole 40 mg tablet,delayed release 40 mg PO DAILY 30 days #0 tabs 07/02/24 Hospital Course Operations - (Laparoscopic right hemicolectomy) Procedures Dialysis, EGD, EKG and - (Chest x-ray, CT chest abdomen pelvis, KUB x 2) Summary of Care Provided Minutes Spent on Discharge: 35 Hospital Course: Patient is a 73-year-old female who presented [facility] ED on 06/23/2024 from dialysis with worsening anemia. Hospital course as noted below. Patient discharged to SNF in stable condition on 07/02. 1. Acute blood loss anemia secondary to lower GI bleed from right-sided colonic mass; postoperative ileus, improving ? GI and general surgery followed. Hemoglobin 5.7 on admit. Prior baseline hemoglobin around 9-10. Improved to 7.6 after 2 units of packed red blood cells given on admission. EGD unremarkable on 06/23. Colonoscopy on 06/24 showed an ascending colonic mass highly concerning for malignancy. CT chest abdomen pelvis showed no evidence of mets. S/p hemicolectomy with general surgery on 06/25. Tolerated procedure well, no intraoperative complications. Hemoglobin was low prior to hemicolectomy procedure, was given 2 units of packed red blood cells during her dialysis. Most recent hemoglobin 8.1 on 07/01, stable from previous. Was passing flatus since 06/28, finally had first bowel movements on 07/01. Tolerating regular diet well on day of discharge. Held Eliquis during hospitalization, restarted on discharge as noted below. Outpatient follow-up with general surgery in 1 week for wound check and staple removal. 2. Paroxysmal A-fib on Eliquis ? Reportedly diagnosed about 2 weeks prior to this admission. Eliquis held during hospitalization as noted above. Reviewed telemetry and patient was in either sinus tachycardia or normal sinus rhythm throughout admission. However, discussed with surgery and given hypercoagulability risk with cancer and recent A-fib history, will restart Eliquis on discharge. No rate controlling agents required during hospitalization and not needed on discharge. 3. ESRD on HD ? Nephrology followed. On HD MWF, continued this schedule while inpatient. 4. Restrictive lung disease ? Reported history but we have no notes in our system regarding this. Has been stable on room air since admission. Continue outpatient follow-up. 5. Acute on chronic debility ? PT/OT/case management followed. Patient followed with home health care prior to admission. Patient with worsening functional status than baseline postoperatively. Stable for discharge to SNF on 07/02. Chronic medical conditions: ? Morbid obesity: BMI 40 on admit. Complicated hospital course, care and prognosis. ? GERD: Continue p.o. PPI daily. ? Type 2 diabetes mellitus: On home sitagliptin. Blood sugars stable during admission, no need for sliding scale insulin. Can continue home sitagliptin on discharge. Total clinical time spent by myself addressing the patient's medical issues, reviewing all the data, and collaborating with patient's care team: 35 minutes. Physical Exam Const alert, oriented x3 and no apparent distress Constitutional Narrative: Elderly female, morbidly obese, mildly fatigued but otherwise sitting up comfortably in bedside chair, conversing normally, in no acute distress. Stable. General Appearance: cooperative and comfortable HEENT normocephalic, head/scalp atraumatic, hearing grossly normal bilaterally, nasal mucous membranes and turbinates normal and moist oral mucous membranes Eyes PERRL, EOMs intact bilaterally and conjunctivae normal Neck full ROM Chest inspection of chest normal Resp normal respiratory effort, normal air movement, no use of accessory muscles and clear to auscultation bilaterally Cardio regular rate, regular rhythm, no murmurs and peripheral pulses 2+ throughout GI GI Narrative: Abdomen soft, nondistended and nontender. Hypoactive bowel sounds. Back/Spine normal ROM Extremity normal to inspection and no pedal edema Skin no rashes or lesions noted Neuro no focal motor deficits and no sensory deficits noted Speech: speech normal Psych mental status grossly normal Weight / BMI Weight Weight: 101 kg Body Mass Index (BMI) 40.7 ABG / Lab / Microbiology Data 07/01/24 07:09 07/01/24 07:09 Microbiology: Microbiology 06/23/24 14:56 Stool Stool Occult Blood (JAZMÍN) - Final Radiography Diagnostic Testing: Radiology Impression KUB X-Ray 07/01/24 09:10 IMPRESSION: Nonspecific bowel gas pattern. Electronically Signed: Louis Serrano MD at 14:33 EDT , Meaningful Use Info Meaningful Use Meaningful Use Diagnoses (Choose all that apply): None applicable Ischemic Stroke Statin Dosing Therapy Reference: STATIN DOSE THERAPY REFERENCE: * Patients > 75 years receive moderate or high dose statin therapy. * Patients 75 years or YOUNGER should receive HIGH intensity statin dose unless contraindicated. You will be required to document reason for non-treatment if statin daily dose does not meet guidelines. HIGH DOSE STATIN THERAPY DAILY Atorvastatin > than or = to 40 mg Rosuvastatin > than or = to 20 mg Amlodipine + Atorvastatin > than or = to 2.5/40 mg Ezetimibe + Simvastatin 10/80 mg Simvastatin 80mg Discharge Plan Admission Admit Date/Time: 06/23/24 16:12 Primary Reason for Your Visit: Low blood count Attending Provider: Ang Messina Primary Care Provider: Nolvia Deleon NP Consulting Providers: Chris Nixon; Antonino Gaines; Bhasakr Putnam; Amadeo Manzanares Discharge Orders/Prescriptions Prescriptions: New docusate sodium 100 mg Capsule 100 mg PO BID 14 Days Qty: 0 0RF pantoprazole 40 mg Tablet,Delayed Release (Dr/Ec) 40 mg PO DAILY 30 Days Qty: 0 0RF Eliquis 5 mg tablet 5 mg PO BID 30 Days Qty: 60 0RF Continued bisoprolol fumarate 5 mg tablet 2.5 mg PO Rx Instructions: 1/2 tab in the evening on and Friday Renal Vitamin 0.8 mg tablet 1 tab PO DAILY Januvia 25 mg tablet 25 mg PO DAILY Rx Instructions: Checks blood sugar daily and only takes if >150 fluorometholone 0.1 % drops,suspension 1 drp EACH EYE QODAY brimonidine [Alphagan P] 0.1 % drops 1 drp RIGHT EYE BID Patient Comments: instill ONE DROP IN THE RIGHT EYE TWICE DAILY Velphoro 500 mg tablet,chewable 500 mg PO TIDCM ketorolac 0.5 % drops 1 drp ophthalmic (eye) 4X/DAY Discontinued Eliquis 5 mg tablet 5 mg PO BID famotidine 20 mg tablet 20 mg PO QHS prednisone 2.5 mg tablet 2.5 mg PO DAILY Referrals / Follow Up: Nolvia Deleon ADVERTISING OPERATIONS COORDINATOR, ADVERTISING OPERATIONS COORDINATOR-C [Primary Care Provider] - Disposition Disposition (needs filled in before D/C Order can be placed): [facility] Charges/Coding Visit Charges Inpatient E&M: 01398 Disch Hosp >30min
--- NOTE | 2024-07-02 15:16 | CASEMGMT ---
Discharge Planning Discharge orders, signed med list, and transport time sent to [facility] via [facility]. Patients will transport patient after dialysis treatment. Nursing and SW updated. Charis Crooks DC Planning Asst.
--- NOTE | 2024-07-02 15:57 | CASEMGMT ---
Discharge Planning Updated transfer to extended care and med list sent to [facility] via [facility]. Charis Crooks DC Planning Asst.
[2024-07-02] MEDS: LACTATED RINGERS 500 ML 999 ML IV (17:17)
== END 2024-07-02 17:53 | disposition skilled nursing facility (03) | DRG 329 ==
LOC: ED 15:51 → SDC 16:11 → ICU 17:41 → PCU 06-26 09:06
PROVIDERS: Anesthesiology; Family Medicine; Surgery; Admitting Provider Internal Medicine Gastroenterology; Emergency Provider Emergency Medicine; PCP Nurse Practitioner Family; Referring Provider Internal Medicine Gastroenterology; Visit Provider Hospitalist
PROC: 0DJ08ZZ Inspection of Upper Intestinal Tract, Via Natural or Artificial Opening Endoscopic (ICD-10-PCS; CPT 43235; principal; 2024-06-23 16:30)
PROC: 0DJD8ZZ Inspection of Lower Intestinal Tract, Via Natural or Artificial Opening Endoscopic (ICD-10-PCS; CPT 45378; principal; 2024-06-24 11:55)
PROC: 0DTF4ZZ Resection of Right Large Intestine, Percutaneous Endoscopic Approach (ICD-10-PCS; principal; 2024-06-25 12:45)
DX: C18.2 Malignant neoplasm of ascending colon (principal); K55.21 Angiodysplasia of colon with hemorrhage; K57.31 Diverticulosis of large intestine without perforation or abscess with bleeding; N18.6 End stage renal disease; K56.7 Ileus, unspecified; D62 Acute posthemorrhagic anemia; Z68.41 Body mass index [BMI] 40.0-44.9, adult; D63.1 Anemia in chronic kidney disease; E83.39 Other disorders of phosphorus metabolism; E11.22 Type 2 diabetes mellitus with diabetic chronic kidney disease; K76.0 Fatty (change of) liver, not elsewhere classified; I48.0 Paroxysmal atrial fibrillation; Z99.2 Dependence on renal dialysis; D63.0 Anemia in neoplastic disease; E66.01 Morbid (severe) obesity due to excess calories; D12.5 Benign neoplasm of sigmoid colon; J98.4 Other disorders of lung; K21.9 Gastro-esophageal reflux disease without esophagitis; K63.89 Other specified diseases of intestine; R53.81 Other malaise; Z95.0 Presence of cardiac pacemaker; Z90.49 Acquired absence of other specified parts of digestive tract; Z79.01 Long term (current) use of anticoagulants; Z79.82 Long term (current) use of aspirin; Z79.83 Long term (current) use of bisphosphonates; Z79.84 Long term (current) use of oral hypoglycemic drugs; Z79.899 Other long term (current) drug therapy; Z87.891 Personal history of nicotine dependence
CPT/HCPCS: 36415; 71046; 71260; 74018; 74177; 80048; 81002; 82274; 82378; 82607; 82728; 82746; 83540; 83550; 83605; 83735; 85014; 85018; 85025; 85027; 86850; 86900; 86901; 86920; 88305; 88307; 88309; 88312; 88341; 88342; 90937; 93005; 94668; 94762; 97116; 97162; 97166; 97530; 97535; 97802; 99285; J7030; J7040; J7120; P9016; Q9967; A4216; A4648; C9159; G0257; J2405; J3490

== ENCOUNTER 2024-08-20 17:43 | Inpatient (IN) | payer MEDICARE, OTHER, SELFPAY ==
[2024-08-20] VITALS (8 sets, daily range): BP systolic 87–112; BP diastolic 32–64; PULSE 97–110; RESP 16–24; TEMP 36.7–37.1; O2SAT 98–100; BMI 38.9; BMI 38.4
--- NOTE | 2024-08-20 18:02 | EKG12_ITS ---
Test Reason : Blood Pressure : */* mmHG Vent. Rate : 102 BPM Atrial Rate : 102 BPM P-R Int : 148 ms QRS Dur : 150 ms QT Int : 418 ms P-R-T Axes : 55 133 -47 degrees QTcB Int : 544 ms Atrial-sensed ventricular-paced rhythm with Premature supraventricular complexes and with frequent Pr emature ventricular complexes Abnormal ECG Confirmed by JOSEPH CHILDERS, FRANNIE ([id number]), offline editor KENNETH MIDDLETON ([id number]) on 08/23/2024 10:31:23 AM Referred By: Confirmed By: FRANNIE RUIZ MD
--- NOTE | 2024-08-20 18:14 | EDS_ITS ---
<Statement entered by Farzad Nascimento DO - 08/20/24 20:35> Patient was seen and examined with Nurse kinza Mas All components of the history and physical confirmed and agreed. History of present illness and physical exam: Patient is a 74-year-old female with past medical history atrial fibrillation on Eliquis, history of colon cancer with hemicolectomy, end-stage renal disease on dialysis who presented to the emergency department with a chief complaint of rectal bleeding. Patient states that she was recently started back on her Eliquis. States that today she noted that she had 3 very dark stools with bowel movements and noted that she had increasing weakness as well as shortness of breath therefore she came here for further evaluation management. States that she did have dialysis today and complete her session. Review of systems: Constitutional: Complains of lightheadedness denies any dizziness, headaches, fevers, chills Eyes: Denies change in vision double vision blurry vision Cardiovascular: Denies chest pain or palpitations Respiratory: Complains of shortness of breath denies coughing wheezing Abdomen: Denies abdominal pain nausea vomiting diarrhea complains of dark tarry stools noted above : Denies any urinary symptoms Neurological: Complains of weakness as noted above denies any numbness, tingling Skin: Denies rashes or lesions Insert physical exam: Agree with above MDM Patient is a 74-year-old female who presented to the emerged part with a chief complaint of dark tarry stools while on Eliquis. Patient will have a workup per formed here on the differential diagnose clues Melamin to upper GI bleed, lower GI bleed, anemia, no hypoxia. Once workup is obtained reviewed she will be reevaluated. Patient did desaturate while on room air therefore she was placed on nasal cannula. Patient is not normally on oxygen. Patient was given Protonix bolus followed by Protonix drip. Patient's CBC was reviewed and was significant for a hemoglobin of 6.3, no evidence leukocytosis white blood count normal at 8, platelet count normal at 247. Patient's sodium was normal at 137, potassium 3.2, creatinine was 2.53 however she is on dialysis, AST and ALT were 31 and 29 respectively, lipase was noted to be 17 her type and screen is O+. Patient CT angiography of the abdomen and pelvis showed status post right hemicolectomy. There is a linear density in the distal sigmoid colon of uncertain etiology possibly representing surgical clips unchanged from a previous exam no active bleeding noted. Patient's case was discussed with Dr. Nixon by nurse practitioner Chace who states that he will possibly scope the patient tomorrow. Case was discussed with hospitalist Dr. Dietz who accept the patient as well. Patient was notified with all question concerns answered. Final impression: Hypoxia Anemia Upper GI bleed Disposition: Patient will be admitted to the hospital for further evaluation management Supervising attending attestation: Farzad ROSE History of Present Illness Chief Complaint: GI Bleed Narrative Narrative: Patient is a 74-year-old female with history of atrial fibrillation on Eliquis, history of colon cancer, end-stage renal disease on hemodialysis presenting to the emergency department for rectal bleeding. Patient recently started back on her Eliquis. Patient dates that she had 3 dark stools today, she states that she has been feeling increasingly weak and is here for evaluation. She did have dialysis today and did complete the entire treatment. She knows that it is dangerous if she is bleeding and on Eliquis so she is here for evaluation. Denies any specific pain. [facility] Medical History Heel spur Colon cancer Colonic mass ESRD (end stage renal disease) Chronic kidney disease on chronic dialysis Restrictive lung disease Morbid obesity Pacemaker Hypercalcemia Wears glasses History of steroid therapy Walker as ambulation aid Diabetes History of renal dialysis History of renal disease Anemia Dietary restriction History of diverticulitis Former smoker BiPAP (biphasic positive airway pressure) dependence Sleep apnea Shortness of breath on exertion History of edema History of echocardiogram Cardiology follow-up encounter History of irregular heartbeat Heart disease Bone spur Low blood pressure Acute renal failure (ARF) Home Medications ?Medication ?Instructions ?Recorded ?Last Taken ?Type bisoprolol fumarate 5 mg tablet 2.5 mg PO MOWEFRSA BP 05/17/21 08/18/24 History brimonidine 0.1 % eye drops 1 drp RIGHT EYE BID glaucoma 05/31/21 08/19/24 History (Alphagan P) fluorometholone 0.1 % eye 1 drp EACH EYE QODAY eye drop 05/31/21 08/19/24 History drops,suspension sucroferric oxyhydroxide 500 mg 500 mg PO TIDCM Kidneys 06/24/24 08/19/24 History chewable tablet (Velphoro) pantoprazole 40 mg tablet,delayed 40 mg PO DAILY 30 days #0 tabs 07/02/24 08/19/24 Rx release prednisone 2.5 mg tablet 2.5 mg PO QDAY 07/15/24 08/19/24 History ondansetron 4 mg disintegrating 4 mg PO Q8H PRN nausea and 08/19/24 Unknown Rx tablet vomiting #20 tabs apixaban 5 mg tablet (Eliquis) 5 mg PO BID 08/20/24 08/20/24 History midodrine 10 mg tablet 10 mg PO BID 08/20/24 08/20/24 History multivitamin (Daily-Francine tablet) 1 tab PO DAILY 08/20/24 08/19/24 History Allergy/AdvReac Type Severity Reaction Status Date / Time Tetracyclic Antidepressants Allergy Intermediate Other Verified 08/20/24 17:44 Tricyclic Antidepressants Allergy Intermediate Other Verified 08/20/24 17:44 and Tricy ibuprofen Allergy Mild PT UNSURE Verified 08/20/24 17:44 OF REACTION Phenylpiperazine Allergy NEEDS Verified 08/20/24 17:44 Antidepressant FOLLOW-UP Family History Father Diabetes Heart disease Mother Heart disease Surgical History S/P right hemicolectomy History of arteriovenostomy for renal dialysis S/P cardiac pacemaker procedure S/P laparoscopic cholecystectomy Social History household members: spouse Smoking Status: Former smoker Tobacco: How many years used: 10 how long ago did patient quit smokin years alcohol intake: never ROS ROS ED ROS Narrative Constitutional: Negative for fever, chills, weight loss, weakness Eyes: Negative for vision loss, vision change, double vision ENT: Negative for any sore throat, ear pain, congestion Cardiovascular: Negative for any chest pain, tightness, palpitations Respiratory: Negative for any cough, sputum production, hemoptysis, dyspnea, dyspnea on exertion, orthopnea Gastrointestinal: Negative for any abdominal pain, nausea, vomiting, diarrhea, constipation, blood in vomit. Positive for blood in stool : Negative for any urinary frequency, dysuria, retention, blood in urine Muscle skeletal: Negative for any neck pain, back pain Neurological: Negative for any headache, syncope, dizziness Skin: Negative for any rashes, itching, abrasions, lacerations Psychiatric: Negative for any depression, anxiety, stress, suicidal ideation, homicidal ideation Hematologic: Negative for any excessive bruising, easy bleeding EXAM Physical Exam Narrative Exam Narrative: Vital signs reviewed. Blood pressure 87/62, patient states that she is normally 95-100 systolic. Slightly tachycardic. HEET: Head normocephalic atraumatic, TMs clear bilaterally. Posterior pharynx is clear, moist mucous membranes. Nares clear bilaterally. Neck: Supple with no lymphadenopathy or tenderness. No signs of meningismus. Cardiac: Regular rate and rhythm no murmurs gallops or rubs, equal peripheral pulses bilaterally. Respiratory: Lungs clear to auscultation bilaterally. No chest tenderness. Abdomen: Soft, nontender, nondistended. No abdominal bruit or pulsatile masses. No hepatosplenomegaly Extremities: No peripheral edema, no signs of gross trauma or deformity. Active full range of motion of all extremities. Neuro: Cranial nerves II through XII intact, no focal neurological deficits. Skin: Clean dry and intact with no rash, purpura, petechiae, vesicles or pustules. Backs/flank: No CVA tenderness, no midline spinal tenderness, no deformity. Psych: Normal mood and affect. No SI, HI or acute psychosis. Rectal; rectal exam was completed with female nurse lending consultant. Patient did have some colonic stool around the anus, dark stool on my finger, no significant findings in the colon. Const Vital Signs: 08/20/24 17:44 08/20/24 19:30 08/20/24 19:56 Temperature 98.3 F 98.8 F Temperature Source Oral Pulse Rate 108 H 104 H 105 H Respiratory Rate 20 H 24 H 24 H Blood Pressure 87/62 L 109/45 L 112/51 L Blood Pressure Mean 70 66 71 Pulse Ox 98 100 100 Oxygen Delivery Method Room Air Nasal Cannula Oxygen Flow Rate (L/min) 2 08/20/24 20:01 Temperature Temperature Source Pulse Rate 104 H Respiratory Rate 24 H Blood Pressure 111/62 Blood Pressure Mean 78 Pulse Ox 100 Oxygen Delivery Method Nasal Cannula Oxygen Flow Rate (L/min) 2 [facility] Lab Data Labs: Laboratory Results - last 24 hr 08/20/24 18:40 WBC 8.0 RBC 2.06 L Hgb 6.3 L Hct 20.3 L MCV 98.5 MCH 30.6 MCHC 31.0 L RDW Std Deviation 61.8 H RDW Coeff of Ernie 17.5 H Plt Count 247 MPV 10.7 Immature Gran % (Auto) 0.500 Neut % (Auto) 83.6 H Lymph % (Auto) 6.8 L [place] % (Auto) 7.4 Eos % (Auto) 1.1 Baso % (Auto) 0.6 Absolute Neuts (auto) 6.7 Absolute Lymphs (auto) 0.54 L Nucleated RBC % 0 Sodium 137 Potassium 3.2 L Chloride 101 Carbon Dioxide 31.0 Anion Gap 5 BUN 23 H Creatinine 2.53 H Estim Creat Clear Calc 21.47 Est GFR (MDRD) Af Amer 24 L Est GFR (MDRD) Non-Af 20 L BUN/Creatinine Ratio 9.1 L Glucose 126 H Calcium 7.6 L Total Bilirubin 0.30 AST 31 ALT 29 Alkaline Phosphatase 75 Total Protein 5.3 L Albumin 2.2 L Globulin 3.1 Albumin/Globulin Ratio 0.7 L Lipase 17 Blood Type O POSITIVE Antibody Screen NEGATIVE Radiography Diagnostic Testing: Clinical Impression(s) from Imaging Studies Abdomen/Pelvis CTA 08/20/24 18:18 IMPRESSION: Status post right hemicolectomy. There is a linear density seen in the distal sigmoid colon of uncertain etiology possibly representing a surgical clip. This is unchanged from the reference exam. There is no active bleeding. There are no acute abnormalities. Electronically Signed: Flex Bone MD at 19:43 EST , EKG EKG shows atrial sensed, ventricular paced rhythm, rate of 102 bpm, NM interval 148 ms, QRS duration 150 ms,: Attestation: I personally reviewed and interpreted this EKG as follows: Comments: No acute ST elevation, no acute infarct noted Treatment and Re-Evaluation :: Differential diagnosis includes however is not limited to: Upper GI bleed, lower GI bleed, fissure, mass Patient slightly hypotensive, tachycardic, presenting to the emergency department for lower GI bleed. Patient states that she is on Eliquis, and had 3 bowel movements with dark stool. Physical examination shows no acute abdominal pain, I did perform a rectal exam, patient does have melanic stool. Secondary the patient's hypotension, tachycardia, melenic stool on Eliquis, patient will need to be admitted to the hospital. Laboratory values will be drawn, CTA of the abdomen pelvis will be drawn. Once getting laboratory values, I will reach out to GI. Patient will receive a type and screen. All radiologic examinations were read, reviewed by the emergency department attending. From these reads, a plan of care will be put in place. Patient's CBC does show some anemia with a hemoglobin of 6.3, patient's baseline is around 8-8.5. Patient's chemistry showed creatinine of 2.53, this is baseline on the days that she has dialysis. She can get as high as 6. Potassium 3.2, lipase is negative. Patient's stool occult was positive. CTA of the abdomen pelvis showed status post right Heema colectomy. There is a linear density seen in the distal sigmoid colon of uncertain etiology possibly representing a surgical clip. Unchanged. No active bleeding. Secondary to this finding, I did consult Dr. Nixon, he will see the patient tomorrow. I will reach out to admission. Patient remains stable. I spoke with Dr. Nixon, he will probably scope the patient tomorrow. I spoke with admission. Patient is stable. Discharge Plan Triage Chief Complaint: GI Bleed ED Midlevel Provider: Chace Toro ED Provider: Farzad Nascimento Dx/Rx/DC Orders Clinical Impression: Acute GI bleeding, Anemia, Hypercoagulable state, Weakness Prescriptions: No Action bisoprolol fumarate 5 mg tablet 2.5 mg PO Rx Instructions: 1/2 tab in the evening on dialysis days / and Friday prednisone 2.5 mg tablet 2.5 mg PO QDAY ondansetron 4 mg tablet,disintegrating 4 mg PO Q8H PRN (Reason: nausea and vomiting) Qty: 20 0RF fluorometholone 0.1 % drops,suspension 1 drp EACH EYE QODAY brimonidine [Alphagan P] 0.1 % drops 1 drp RIGHT EYE BID Patient Comments: instill ONE DROP IN THE RIGHT EYE TWICE DAILY Velphoro 500 mg tablet,chewable 500 mg PO TIDCM pantoprazole 40 mg Tablet,Delayed Release (Dr/Ec) 40 mg PO DAILY 30 Days Qty: 0 0RF Eliquis 5 mg tablet 5 mg PO BID multivitamin [Daily-Francine] Tablet 1 tab PO DAILY midodrine 10 mg tablet 10 mg PO BID Rx Instructions: TAKE 1 TABLET PRIOR TO DIALYSIS AND TAKE 1 TABLET WITH DIALYSIS Primary Care Provider: Khloe Pabon Referrals: Khloe Pabon MD [Primary Care Provider] - Print Language: Bulgarian Disposition Disposition: Acute Care Hospital [facility]
--- NOTE | 2024-08-20 18:18 | CT_ITS ---
EXAM: CT ANGIOGRAPHY ABDOMEN AND PELVIS WITHOUT AND WITH INTRAVENOUS CONTRAST CLINICAL INDICATION: GI bleed TECHNIQUE: Helically acquired angiography images were obtained of the abdomen and pelvis without and with intravenous contrast. This CT exam was performed using one or more of the following dose reduction techniques: automated exposure control, adjustment of the mA and/or kV according to patient size, and/or use of iterative reconstruction technique. MIP reconstructed images were created and reviewed. CONTRAST: IV 80mL [id number] COMPARISON: 06/24/2024 FINDINGS: VASCULATURE: AORTA: No acute findings. Normal caliber abdominal aorta. No dissection. CELIAC TRUNK AND MESENTERIC ARTERIES: No acute findings. No occlusion or significant stenosis. No dissection. RENAL ARTERIES: No acute findings. No occlusion or significant stenosis. No dissection. ILIAC ARTERIES: No acute findings. No occlusion or significant stenosis. No dissection. LOWER THORAX: Unremarkable. Lung bases are clear. No cardiomegaly. No significant pericardial effusion. ABDOMEN: LIVER: Unremarkable. Homogeneous. No focal mass. GALLBLADDER AND BILE DUCTS: Unremarkable. No calcified gallstones. No gallbladder distention or wall edema. No intra- or extrahepatic biliary ductal dilation. PANCREAS: Unremarkable. No focal cystic or solid mass. SPLEEN: There are splenic granulomas. ADRENALS: Unremarkable. No nodules. KIDNEYS AND URETERS: There are nonobstructing calyceal stones in both kidneys. Normal renal size and position. STOMACH AND BOWEL: There is a linear density seen within the distal sigmoid colon measures 1.5 cm which was present on the previous exam of uncertain etiology. The patient has had a right hemicolectomy. No stomach or bowel distention. PELVIS: APPENDIX: See above. BLADDER: Unremarkable. REPRODUCTIVE: Unremarkable as visualized. No mass. ABDOMEN and PELVIS: INTRAPERITONEAL SPACE: Unremarkable. No ascites or other fluid collection. No free air. BONES/JOINTS: Unremarkable. No suspicious lytic or blastic abnormality. SOFT TISSUES: Unremarkable. No discrete abdominal or pelvic wall hernia. LYMPH NODES: Unremarkable. No enlarged lymph nodes. CT/CTA Abd/Pelvis W/WO Contrast IMPRESSION: Status post right hemicolectomy. There is a linear density seen in the distal sigmoid colon of uncertain etiology possibly representing a surgical clip. This is unchanged from the reference exam. There is no active bleeding. There are no acute abnormalities. Electronically Signed: Flex Bone MD at 19:43 EST ,
[2024-08-20] MEDS: Pantoprazole Sodium 80 MG in 0.9% Normal Saline (50mL Bag) 15 ML 420 MG IV BOLUS (18:35)
[2024-08-20] MEDS: Pantoprazole Sodium 80 MG in 0.9% Normal Saline (100mL Bag) 80 ML 10 MG CONT INF (18:50)
[2024-08-20 18:59] LABS: Absolute Lymphocyte Count 0.54 X10^3/uL (0.83-4.51); Absolute Neutrophil Count 6.7 X10^3/uL (2.0-7.7); Basophil# 0.05 X10^3/uL; Basophil% 0.6 % (0-1); Eosinophil# 0.09 X10^3/uL; Eosinophils% 1.1 % (0-5); Hematocrit 20.3 % (37-47); Hemoglobin 6.3 g/dL (12.0-15.0); Lymphocyte # 0.54 X10^3/ul (0.83-4.51); Lymphocyte % 6.8 % (19-41); Mean Corpuscular Hgb 30.6 pg (27.0-32.0); Mean Corpuscular Volume 98.5 fL (81-99); Mean Platelet Vol. 10.7 fl (6.2-12.0); Monocyte# 0.59 X10^3/uL; Monocyte% 7.4 % (0-10); NRBC Flagged by Analyzer 0 % (0-5); Neutrophil # 6.65 X10^3/uL (2.7-7.7); Neutrophil % 83.6 % (47-70); POSITIVE DIFFERENTIAL YES; Platelet Count 247 K/mm3 (150-450); RBC Distribution Width CV 17.5 % (11.6-14.6); RBC Distribution Width SD 61.8 fl (35.1-43.9); Red Blood Count 2.06 M/mm3 (4.2-5.4)
[2024-08-20 19:15] LABS: ALB/GLOB Ratio 0.7 RATIO (0.9-2.4); AST(SGOT) 31 U/L (15-37); Alanine Aminotransfer ALT/SGPT 29 U/L (13-56); Albumin, Serum 2.2 g/dL (3.2-5.0); Alkaline Phosphatase 75 U/L (45-117); Anion Gap 5 (5-15); BUN 23 mg/dL (7-18); BUN/Creat Ratio 9.1 RATIO (10-20); Calcium,Total 7.6 mg/dL (8.5-10.1); Chloride 101 mmol/L (98-107); Creatinine, Serum 2.53 mg/dL (0.55-1.02); EST Glomerular Filtration Rate 20 mL/min (>60); Est Glom Filt Rate - Afr Amer 24 mL/min (>60); Estimated Creatinine Clearance 21.47 ml/min; Globulin 3.1 g/dL (2.2-4.2); Glucose 126 mg/dL (74-106); Lipase 17 U/L (13-75); Potassium 3.2 mmol/L (3.5-5.1); Protein, Total 5.3 g/dL (6.4-8.2); Sodium Level 137 mmol/L (136-145)
--- NOTE | 2024-08-20 20:05 | HP.PCM.HOS_ITS ---
HPI - General General Date of Admission: 08/20/24 Date of Service: 08/20/24 Chief Complaint: LGIB with Melanotic Stool. HPI Narrative CLINTON COYLE, is a 74 F with a past medical history of obesity; with BMI of 38.9 this admission, LAYLA; on BiPAP, ESRD on HD; (M-W-F) on Midodrine, history of arrhythmia; s/p PPM, history of atrial fibrillation; on Eliquis, history of colon cancer; s/p Right hemicolectomy by Dr. Manzanares, GERD; on Protonix, history of tobacco abuse, history of restrictive lung disease, history of glaucoma and OA who presents to [facility] ER complaining of lower GI bleed with melanotic stool. Ms. Coyle reports her symptoms began approximately PFSH Medical History Heel spur Colon cancer Colonic mass ESRD (end stage renal disease) Chronic kidney disease on chronic dialysis Restrictive lung disease Morbid obesity Pacemaker Hypercalcemia Wears glasses History of steroid therapy Walker as ambulation aid Diabetes History of renal dialysis History of renal disease Anemia Dietary restriction History of diverticulitis Former smoker BiPAP (biphasic positive airway pressure) dependence Sleep apnea Shortness of breath on exertion History of edema History of echocardiogram Cardiology follow-up encounter History of irregular heartbeat Heart disease Bone spur Low blood pressure Acute renal failure (ARF) Home Medications ?Medication ?Instructions ?Recorded ?Last Taken ?Type bisoprolol fumarate 5 mg tablet 2.5 mg PO MOWEFRSA BP 05/17/21 08/18/24 History brimonidine 0.1 % eye drops 1 drp RIGHT EYE BID glaucoma 05/31/21 08/19/24 History (Alphagan P) fluorometholone 0.1 % eye 1 drp EACH EYE QODAY eye drop 05/31/21 08/19/24 History drops,suspension sucroferric oxyhydroxide 500 mg 500 mg PO TIDCM Kidneys 06/24/24 08/19/24 History chewable tablet (Velphoro) pantoprazole 40 mg tablet,delayed 40 mg PO DAILY 30 days #0 tabs 07/02/24 08/19/24 Rx release prednisone 2.5 mg tablet 2.5 mg PO QDAY 07/15/24 08/19/24 History ondansetron 4 mg disintegrating 4 mg PO Q8H PRN nausea and 08/19/24 Unknown Rx tablet vomiting #20 tabs apixaban 5 mg tablet (Eliquis) 5 mg PO BID 08/20/24 08/20/24 History midodrine 10 mg tablet 10 mg PO BID 08/20/24 08/20/24 History multivitamin (Daily-Francine tablet) 1 tab PO DAILY 08/20/24 08/19/24 History Allergy/AdvReac Type Severity Reaction Status Date / Time Tetracyclic Antidepressants Allergy Intermediate Other Verified 08/20/24 17:44 Tricyclic Antidepressants Allergy Intermediate Other Verified 08/20/24 17:44 and Tricy ibuprofen Allergy Mild PT UNSURE Verified 08/20/24 17:44 OF REACTION Phenylpiperazine Allergy NEEDS Verified 08/20/24 17:44 Antidepressant FOLLOW-UP Family History Father Diabetes Heart disease Mother Heart disease Surgical History S/P right hemicolectomy History of arteriovenostomy for renal dialysis S/P cardiac pacemaker procedure S/P laparoscopic cholecystectomy Social History household members: spouse Smoking Status: Former smoker Tobacco: How many years used: 10 how long ago did patient quit smokin years alcohol intake: never Vital Signs Vital Signs Vital Signs: 08/20/24 17:44 08/20/24 19:30 08/20/24 19:56 Temperature 98.3 F 98.8 F Temperature Source Oral Pulse Rate 108 H 104 H 105 H Respiratory Rate 20 H 24 H 24 H Blood Pressure 87/62 L 109/45 L 112/51 L Blood Pressure Mean 70 66 71 Pulse Ox 98 100 100 Oxygen Delivery Method Room Air Nasal Cannula Oxygen Flow Rate (L/min) 2 08/20/24 20:01 Temperature Temperature Source Pulse Rate 104 H Respiratory Rate 24 H Blood Pressure 111/62 Blood Pressure Mean 78 Pulse Ox 100 Oxygen Delivery Method Nasal Cannula Oxygen Flow Rate (L/min) 2 Weight Weight: 212 lb 11.937 oz Body Mass Index (BMI) 38.9 Results Lab / Micro Data 08/20/24 18:40 08/20/24 18:40 Labs: Laboratory Results - last 24 hr 08/20/24 18:40: WBC 8.0, RBC 2.06 L, Hgb 6.3 L, Hct 20.3 L, MCV 98.5, MCH 30.6, MCHC 31.0 L, RDW Std Deviation 61.8 H, RDW Coeff of Ernie 17.5 H, Plt Count 247, MPV 10.7, Immature Gran % (Auto) 0.500, Neut % (Auto) 83.6 H, Lymph % (Auto) 6.8 L, [place] % (Auto) 7.4, Eos % (Auto) 1.1, Baso % (Auto) 0.6, Absolute Neuts (auto) 6.7, Absolute Lymphs (auto) 0.54 L, Nucleated RBC % 0, Sodium 137, Potassium 3.2 L, Chloride 101, Carbon Dioxide 31.0, Anion Gap 5, BUN 23 H, Creatinine 2.53 H, Estim Creat Clear Calc 21.47, Est GFR (MDRD) Af Amer 24 L, Est GFR (MDRD) Non-Af 20 L, BUN/Creatinine Ratio 9.1 L, Glucose 126 H, Calcium 7.6 L, Total Bilirubin 0.30, AST 31, ALT 29, Alkaline Phosphatase 75, Total Protein 5.3 L, Albumin 2.2 L, Globulin 3.1, Albumin/Globulin Ratio 0.7 L, Lipase 17, Blood Type O POSITIVE, Antibody Screen NEGATIVE Micro: Microbiology 08/20/24 18:35 Stool Stool Occult Blood (JAZMÍN) - Final Occult Blood Positive Imaging Radiology Impression Abdomen/Pelvis CTA 08/20/24 18:18 IMPRESSION: Status post right hemicolectomy. There is a linear density seen in the distal sigmoid colon of uncertain etiology possibly representing a surgical clip. This is unchanged from the reference exam. There is no active bleeding. There are no acute abnormalities. Electronically Signed: Flex Bone MD at 19:43 EST ,
--- NOTE | 2024-08-20 20:15 | PCM.HP.STD ---
[facility] - General General Date of Admission: 08/20/24 Date of Service: 08/20/24 Chief Complaint: LGIB with Melanotic Stool. [facility] Narrative CLINTON COYLE, is a 74 F with a past medical history of obesity; with BMI of 38.9 this admission, LAYLA; on BiPAP, ESRD on HD; (M-W-F) on Midodrine with Right AVF (placed 2020), history of arrhythmia; s/p PPM, history of atrial fibrillation; on Eliquis, history of colon cancer; s/p Right hemicolectomy by Dr. Manzanares, GERD; on Protonix, history of chronic anemia, history of tobacco abuse, history of restrictive lung disease, history of glaucoma and OA who presents to [facility] ER complaining of lower GI bleed with melanotic stool. Ms. Coyle reports her symptoms began a few hours prior to admission after she finished HD with three dark stools and corresponding weakness and fatigue so she decided to come in for further evaluation and treatment. She admits she was recently restarted on her Eliquis. She denies associated fever, chills, nausea, vomiting, constipation, chest pain, palpitations or diaphoresis. In the ER she was diagnosed with LGIB with Melanotic Stool with a corresponding Acute Blood Loss Anemia of 6.3 g/dL present on admission requiring transfusion with CT scan of the abdomen and pelvis positive for evidence of a previous Right hemicolectomy with a linear density seen in the distal sigmoid colon of uncertain etiology possibly representing a surgical clip. The ER provider then spoke with the ferry terminal agent on-call who recommended admission to the hospitalist service with plan for endoscopy in AM. The patient was then admitted to the PCU for ongoing care for a stay that is expected to extend beyond 2 midnights. [facility], [facility] Medical History Heel spur Colon cancer Colonic mass ESRD (end stage renal disease) Chronic kidney disease on chronic dialysis Restrictive lung disease Morbid obesity Pacemaker Hypercalcemia Wears glasses History of steroid therapy Walker as ambulation aid Diabetes History of renal dialysis History of renal disease Anemia Dietary restriction History of diverticulitis Former smoker BiPAP (biphasic positive airway pressure) dependence Sleep apnea Shortness of breath on exertion History of edema History of echocardiogram Cardiology follow-up encounter History of irregular heartbeat Heart disease Bone spur Low blood pressure Acute renal failure (ARF) Home Medications ?Medication ?Instructions ?Recorded ?Last Taken ?Type bisoprolol fumarate 5 mg tablet 2.5 mg PO MOWEFRSA BP 05/17/21 08/18/24 History brimonidine 0.1 % eye drops 1 drp RIGHT EYE BID glaucoma 05/31/21 08/19/24 History (Alphagan P) fluorometholone 0.1 % eye 1 drp EACH EYE QODAY eye drop 05/31/21 08/19/24 History drops,suspension sucroferric oxyhydroxide 500 mg 500 mg PO TIDCM Kidneys 06/24/24 08/19/24 History chewable tablet (Velphoro) pantoprazole 40 mg tablet,delayed 40 mg PO DAILY 30 days #0 tabs 07/02/24 08/19/24 Rx release prednisone 2.5 mg tablet 2.5 mg PO QDAY 07/15/24 08/19/24 History ondansetron 4 mg disintegrating 4 mg PO Q8H PRN nausea and 08/19/24 Unknown Rx tablet vomiting #20 tabs apixaban 5 mg tablet (Eliquis) 5 mg PO BID 08/20/24 08/20/24 History midodrine 10 mg tablet 10 mg PO BID 08/20/24 08/20/24 History multivitamin (Daily-Francine tablet) 1 tab PO DAILY 08/20/24 08/19/24 History Allergy/AdvReac Type Severity Reaction Status Date / Time Tetracyclic Antidepressants Allergy Intermediate Other Verified 08/20/24 17:44 Tricyclic Antidepressants Allergy Intermediate Other Verified 08/20/24 17:44 and Tricy ibuprofen Allergy Mild PT UNSURE Verified 08/20/24 17:44 OF REACTION Phenylpiperazine Allergy NEEDS Verified 08/20/24 17:44 Antidepressant FOLLOW-UP Family History Father Diabetes Heart disease Mother Heart disease Surgical History S/P right hemicolectomy History of arteriovenostomy for renal dialysis S/P cardiac pacemaker procedure S/P laparoscopic cholecystectomy Social History household members: spouse Smoking Status: Former smoker Tobacco: How many years used: 10 how long ago did patient quit smokin years alcohol intake: never ROS ROS Narrative Review of Systems: Vital Signs Vital Signs Vital Signs: 08/20/24 17:44 08/20/24 19:30 08/20/24 19:56 Temperature 98.3 F 98.8 F Temperature Source Oral Pulse Rate 108 H 104 H 105 H Respiratory Rate 20 H 24 H 24 H Blood Pressure 87/62 L 109/45 L 112/51 L Blood Pressure Mean 70 66 71 Pulse Ox 98 100 100 Oxygen Delivery Method Room Air Nasal Cannula Oxygen Flow Rate (L/min) 2 08/20/24 20:01 Temperature Temperature Source Pulse Rate 104 H Respiratory Rate 24 H Blood Pressure 111/62 Blood Pressure Mean 78 Pulse Ox 100 Oxygen Delivery Method Nasal Cannula Oxygen Flow Rate (L/min) 2 Weight Weight: 212 lb 11.937 oz Body Mass Index (BMI) 38.9 Results Lab / Micro Data 08/20/24 18:40 08/20/24 18:40 Labs: Laboratory Results - last 24 hr 08/20/24 18:40: WBC 8.0, RBC 2.06 L, Hgb 6.3 L, Hct 20.3 L, MCV 98.5, MCH 30.6, MCHC 31.0 L, RDW Std Deviation 61.8 H, RDW Coeff of Ernie 17.5 H, Plt Count 247, MPV 10.7, Immature Gran % (Auto) 0.500, Neut % (Auto) 83.6 H, Lymph % (Auto) 6.8 L, [place] % (Auto) 7.4, Eos % (Auto) 1.1, Baso % (Auto) 0.6, Absolute Neuts (auto) 6.7, Absolute Lymphs (auto) 0.54 L, Nucleated RBC % 0, Sodium 137, Potassium 3.2 L, Chloride 101, Carbon Dioxide 31.0, Anion Gap 5, BUN 23 H, Creatinine 2.53 H, Estim Creat Clear Calc 21.47, Est GFR (MDRD) Af Amer 24 L, Est GFR (MDRD) Non-Af 20 L, BUN/Creatinine Ratio 9.1 L, Glucose 126 H, Calcium 7.6 L, Total Bilirubin 0.30, AST 31, ALT 29, Alkaline Phosphatase 75, Total Protein 5.3 L, Albumin 2.2 L, Globulin 3.1, Albumin/Globulin Ratio 0.7 L, Lipase 17, Blood Type O POSITIVE, Antibody Screen NEGATIVE Micro: Microbiology 08/20/24 18:35 Stool Stool Occult Blood (JAZMÍN) - Final Occult Blood Positive Imaging Radiology Impression Abdomen/Pelvis CTA 08/20/24 18:18 IMPRESSION: Status post right hemicolectomy. There is a linear density seen in the distal sigmoid colon of uncertain etiology possibly representing a surgical clip. This is unchanged from the reference exam. There is no active bleeding. There are no acute abnormalities. Electronically Signed: Flex Bone MD at 19:43 EST ,
--- NOTE | 2024-08-20 20:19 | ED.RN ---
Patient requesting to hold off on bowel prep medications until she arrives on the floor unit.
--- NOTE | 2024-08-20 20:41 | PCM.HP.STD ---
[facility] - General General Date of Admission: 08/20/24 Date of Service: 08/20/24 Chief Complaint: LGIB with Melanotic Stool. HPI Narrative CLINTON COYLE, is a 74F with a past medical history of obesity; with BMI of 38.9 this admission, LAYLA; on BiPAP, ESRD on HD; (M-W-F) on Midodrine with Right AVF (placed 2020), history of arrhythmia; s/p PPM, history of atrial fibrillation; on Eliquis, history of colon cancer; s/p Right hemicolectomy by Dr. Manzanares, GERD; on Protonix, history of chronic anemia; with baseline hemoglobin of ~8 g/dL, former history of tobacco abuse, history of restrictive lung disease, history of glaucoma and OA who presents to [facility] ER complaining of lower GI bleed with melanotic stool. Ms. Coyle reports her symptoms began a few hours prior to admission after she finished HD with three dark stools and corresponding weakness and fatigue so she decided to come in for further evaluation and treatment. She admits she was recently restarted on her Eliquis. She denies associated fever, chills, nausea, vomiting, constipation, chest pain, palpitations or diaphoresis. In the ER she was diagnosed with LGIB with Melanotic Stool with a corresponding Acute Blood Loss Anemia of 6.3 g/dL present on admission requiring transfusion for suspected PUD due to Adverse Drug Reaction to Eliquis with CT scan of the abdomen and pelvis positive for evidence of a previous Right hemicolectomy with a linear density seen in the distal sigmoid colon of uncertain etiology possibly representing a surgical clip. The ER provider then spoke with the landscaping crew leader on-call who recommended admission to the hospitalist service with plan for endoscopy in AM. The patient was then admitted to the PCU for ongoing care for a stay that is expected to extend beyond 2 midnights. FORMERLY [facility] Medical History (Updated 08/20/24 @ 21:[address] Dylon Rosado, ) Chronic kidney disease on chronic dialysis Heel spur Colon cancer Colonic mass ESRD (end stage renal disease) Restrictive lung disease Morbid obesity Pacemaker Hypercalcemia Wears glasses History of steroid therapy Walker as ambulation aid Diabetes History of renal dialysis History of renal disease Anemia Dietary restriction History of diverticulitis Former smoker BiPAP (biphasic positive airway pressure) dependence Sleep apnea Shortness of breath on exertion History of edema History of echocardiogram Cardiology follow-up encounter History of irregular heartbeat Heart disease Bone spur Low blood pressure Acute renal failure (ARF) Home Medications ?Medication ?Instructions ?Recorded ?Last Taken ?Type bisoprolol fumarate 5 mg tablet 2.5 mg PO MOWEFR BP 05/17/21 08/18/24 History brimonidine 0.1 % eye drops 1 drp RIGHT EYE BID glaucoma 05/31/21 08/19/24 History (Alphagan P) fluorometholone 0.1 % eye 1 drp EACH EYE QODAY eye drop 05/31/21 08/19/24 History drops,suspension sucroferric oxyhydroxide 500 mg 500 mg PO TIDCM Kidneys 06/24/24 08/19/24 History chewable tablet (Velphoro) pantoprazole 40 mg tablet,delayed 40 mg PO DAILY 30 days #0 tabs 07/02/24 08/19/24 Rx release prednisone 2.5 mg tablet 2.5 mg PO QDAY 07/15/24 08/19/24 History ondansetron 4 mg disintegrating 4 mg PO Q8H PRN nausea and 08/19/24 Unknown Rx tablet vomiting #20 tabs apixaban 5 mg tablet (Eliquis) 5 mg PO BID 08/20/24 08/20/24 History midodrine 10 mg tablet 10 mg PO BID 08/20/24 08/20/24 History multivitamin (Daily-Francine tablet) 1 tab PO DAILY 08/20/24 08/19/24 History Allergy/AdvReac Type Severity Reaction Status Date / Time Tetracyclic Antidepressants Allergy Intermediate Other Verified 08/20/24 21:32 Tricyclic Antidepressants Allergy Intermediate Other Verified 08/20/24 21:32 and Tricy ibuprofen Allergy Mild PT UNSURE Verified 08/20/24 21:32 OF REACTION Phenylpiperazine Allergy NEEDS Verified 08/20/24 21:32 Antidepressant FOLLOW-UP Family History Father Diabetes Heart disease Mother Heart disease Surgical History S/P right hemicolectomy History of arteriovenostomy for renal dialysis S/P cardiac pacemaker procedure S/P laparoscopic cholecystectomy Social History household members: spouse Smoking Status: Former smoker Tobacco: How many years used: 10 how long ago did patient quit smokin years alcohol intake: never ROS ROS Narrative Review of Systems: Constitutional: Patient admits to fatigue but she denies fever or chills. Eyes: Patient denies changes in vision or discharge from eyes. ENT: Patient denies runny nose, sore throat or ear pain. Resp: Patient denies SOB or cough. CV: Patient denies chest pain, palpitations or heart racing. GI: Patient admits to LGIB with dark stools. : Patient denies dysuria or hematuria. MSK: Patient admits to generalized weakness and fatigue but she denies arthralgias or myalgias. Skin: Patient denies rash, abscess or jaundice. Psych: Patient denies symptoms of uncontrolled depression or anxiety. Neuro: Patient denies headache, paresthesias or focal neurologic deficits. Allergy: Patient denies lip swelling, tongue swelling or urticaria. Hematology: Patient admits to IB with melena as per HPI. Endocrinology: Patient denies polyuria, polydipsia or polyphagia. 14 point ROS otherwise negative except for positives noted above in HPI. Vital Signs Vital Signs Vital Signs: 08/20/24 17:44 08/20/24 19:30 08/20/24 19:56 Temperature 98.3 F 98.8 F Temperature Source Oral Pulse Rate 108 H 104 H 105 H Respiratory Rate 20 H 24 H 24 H Blood Pressure 87/62 L 109/45 L 112/51 L Blood Pressure Mean 70 66 71 Pulse Ox 98 100 100 Oxygen Delivery Method Room Air Nasal Cannula Oxygen Flow Rate (L/min) 2 08/20/24 20:01 Temperature Temperature Source Pulse Rate 104 H Respiratory Rate 24 H Blood Pressure 111/62 Blood Pressure Mean 78 Pulse Ox 100 Oxygen Delivery Method Nasal Cannula Oxygen Flow Rate (L/min) 2 Weight Weight: 212 lb 11.937 oz Body Mass Index (BMI) 38.9 Physical Exam Const alert, oriented x3 and no apparent distress Constitutional Narrative: Obese. General Appearance: cooperative HEENT normocephalic, head/scalp atraumatic, hearing grossly normal bilaterally and moist oral mucous membranes Eyes PERRL and EOMs intact bilaterally Neck no lymphadenopathy and supple Resp normal respiratory effort, no retractions, no use of accessory muscles and clear to auscultation bilaterally Cardio regular rate and regular rhythm GI normal to inspection, nondistended, normoactive bowel sounds, soft to palpation, non-tender and non-distended GI Narrative: Obese. Extremity normal to inspection, full ROM and no clubbing, cyanosis or edema Skin Skin Narrative: Patient has no evidence of rash, abscess or jaundice. Neuro oriented x3, CN's II-XII intact bilaterally, moves all extremities and no focal motor deficits Sensorium / Orientation: awake, alert, oriented to person, oriented to place and oriented to time Speech: speech normal Psych affect normal Results Medical Records Data Attestation: I reviewed the patient's medical records Lab / Micro Data Attestation: I reviewed the patient's lab results. 08/20/24 18:40 08/20/24 18:40 Labs: Laboratory Results - last 24 hr 08/20/24 18:40: WBC 8.0, RBC 2.06 L, Hgb 6.3 L, Hct 20.3 L, MCV 98.5, MCH 30.6, MCHC 31.0 L, RDW Std Deviation 61.8 H, RDW Coeff of Ernie 17.5 H, Plt Count 247, MPV 10.7, Immature Gran % (Auto) 0.500, Neut % (Auto) 83.6 H, Lymph % (Auto) 6.8 L, [place] % (Auto) 7.4, Eos % (Auto) 1.1, Baso % (Auto) 0.6, Absolute Neuts (auto) 6.7, Absolute Lymphs (auto) 0.54 L, Nucleated RBC % 0, Sodium 137, Potassium 3.2 L, Chloride 101, Carbon Dioxide 31.0, Anion Gap 5, BUN 23 H, Creatinine 2.53 H, Estim Creat Clear Calc 21.47, Est GFR (MDRD) Af Amer 24 L, Est GFR (MDRD) Non-Af 20 L, BUN/Creatinine Ratio 9.1 L, Glucose 126 H, Calcium 7.6 L, Total Bilirubin 0.30, AST 31, ALT 29, Alkaline Phosphatase 75, Total Protein 5.3 L, Albumin 2.2 L, Globulin 3.1, Albumin/Globulin Ratio 0.7 L, Lipase 17, Blood Type O POSITIVE, Antibody Screen NEGATIVE Micro: Microbiology 11/08/24 18:35 Stool Stool Occult Blood (JAZMÍN) - Final Occult Blood Positive Imaging Radiology Impression Abdomen/Pelvis CTA 08/20/24 18:18 IMPRESSION: Status post right hemicolectomy. There is a linear density seen in the distal sigmoid colon of uncertain etiology possibly representing a surgical clip. This is unchanged from the reference exam. There is no active bleeding. There are no acute abnormalities. Electronically Signed: Flex Bone MD at 19:43 EST , Assessment & Plan Assessment/Plan (1) Melena: (2) Anemia due to acute blood loss: (3) Adverse drug reaction: QUALIFIERS: Encounter type: initial encounter Qualified Code(s): T50.905A - Adverse effect of unspecified drugs, medicaments and biological substances, initial encounter (4) Colon cancer: QUALIFIERS: Colon location: ascending Qualified Code(s): C18.2 - Malignant neoplasm of ascending colon (5) S/P right hemicolectomy: (6) Chronic kidney disease on chronic dialysis: (7) Obesity (BMI 30-39.9): PLAN: Plan 1. LGIB with Melanotic Stool with a corresponding [id number] Blood Loss Anemia of 6.3 g/dL present on admission requiring transfusion in the setting of a known history of GERD; already on Protonix with suspected PUD - Admit to PCU. Keep NPO except sips, ice chips, medications and bowel prep. Give Protonix drip for presumed PUD as the likely source of blood loss. Transfuse blood for hemoglobin <7 g/dL. Give Zofran IV prn nausea. Give Morphine IV prn for severe (level 6-10/10) pain. Finally, we will consult gastroenterology to see this patient on-rounds in the AM for further recommendations regarding panendoscopy with help appreciated in advance. 2. Adverse Drug Reaction to recently restarted Eliquis used to treat Atrial Fibrillation precipitating #1 - Hold Eliquis and avoid all potentially blood thinning agents for the foreseeable future. 3. History of Colon Cancer; s/p Right hemicolectomy with CT this admission positive for a linear density seen in the distal sigmoid colon of uncertain etiology possibly representing a surgical clip complicating #1 & #2 - Noted. Hopefully this area can be visually inspected upon endoscopy. 4. ESRD on HD; (M-W-) on Midodrine - Continue Midodrine after endoscopy when okay with GI. Resume HD as planned on Friday. 5. Obesity; with BMI of 38.9 this admission plus LAYLA; on BiPAP - Weight loss will be recommended. Check TSH. Resume nocturnal BiPAP as previous. This complicates her case and may hamper recovery. 6. History of arrhythmia; s/p PPM - Noted. 7. Former history of tobacco abuse - Noted. 8. History of restrictive lung disease - Stable. 9. History of glaucoma - Maintain eyes drops as previous. 10. OA - Stable. 11. DVT prophylaxis - SCD's only in light of #1 contraindicating blood thinning agents. Total time: Approximately (but not less than) 75 minutes.
--- NOTE | 2024-08-20 20:53 | ED.RN ---
ASSOCIATE DIRECTOR OF SALES called and notified that patient was adamant on not doing bowel prep while in ER and wanting to wait until she talked to the physician or was in admiting room. Also notified RN that patient has concerns about going into fluid overload from bowel prep.
[2024-08-20] MEDS: Bisacodyl 5 MG Tablet 20 MG PO (21:24)
--- NOTE | 2024-08-20 22:11 | EX.PCM.CON.G ---
HPI Consult Data Date of Consult: 08/20/24 HPI Narrative Reason for Consultation: GI bleed HPI Narrative: CLINTON COYLE, is a 74F with a past medical history of obesity; with BMI of 38.9 this admission, LAYLA; on BiPAP, ESRD on HD; (M-W-F) on Midodrine with Right AVF (placed 2020), history of arrhythmia; s/p PPM, history of atrial fibrillation; on Eliquis, history of colon cancer; s/p Right hemicolectomy by Dr. Manzanares, GERD; on Protonix, history of chronic anemia; with baseline hemoglobin of ~8 g/dL, former history of tobacco abuse, history of restrictive lung disease, history of glaucoma and OA who presents to [facility] ER complaining of lower GI bleed with melanotic stool. Ms. Coyle reports her symptoms began a few hours prior to admission after she finished HD with three dark stools and corresponding weakness and fatigue so she decided to come in for further evaluation and treatment. She admits she was recently restarted on her Eliquis. She denies associated fever, chills, nausea, vomiting, constipation, chest pain, palpitations or diaphoresis. In the ER she was diagnosed with LGIB with Melanotic Stool with a corresponding Acute Blood Loss Anemia of 6.3 g/dL present on admission requiring transfusion for suspected PUD due to Adverse Drug Reaction to Eliquis with CT scan of the abdomen and pelvis positive for evidence of a previous Right hemicolectomy with a linear density seen in the distal sigmoid colon of uncertain etiology possibly representing a surgical clip. FORMERLY [facility] Medical History (Updated 08/20/24 @ 21:[address] Dylon Rosado, DO) Chronic kidney disease on chronic dialysis Heel spur Colon cancer Colonic mass ESRD (end stage renal disease) Restrictive lung disease Morbid obesity Pacemaker Hypercalcemia Wears glasses History of steroid therapy Walker as ambulation aid Diabetes History of renal dialysis History of renal disease Anemia Dietary restriction History of diverticulitis Former smoker BiPAP (biphasic positive airway pressure) dependence Sleep apnea Shortness of breath on exertion History of edema History of echocardiogram Cardiology follow-up encounter History of irregular heartbeat Heart disease Bone spur Low blood pressure Acute renal failure (ARF) Home Medications ?Medication ?Instructions ?Recorded ?Last Taken ?Type bisoprolol fumarate 5 mg tablet 2.5 mg PO MOWEFRSA BP 05/17/21 08/18/24 History brimonidine 0.1 % eye drops 1 drp RIGHT EYE BID glaucoma 05/31/21 08/19/24 History (Alphagan P) fluorometholone 0.1 % eye 1 drp EACH EYE QODAY eye drop 05/31/21 08/19/24 History drops,suspension sucroferric oxyhydroxide 500 mg 500 mg PO TIDCM Kidneys 06/24/24 08/19/24 History chewable tablet (Velphoro) pantoprazole 40 mg tablet,delayed 40 mg PO DAILY 30 days #0 tabs 07/02/24 08/19/24 Rx release prednisone 2.5 mg tablet 2.5 mg PO QDAY 07/15/24 08/19/24 History ondansetron 4 mg disintegrating 4 mg PO Q8H PRN nausea and 08/19/24 Unknown Rx tablet vomiting #20 tabs apixaban 5 mg tablet (Eliquis) 5 mg PO BID 08/20/24 08/20/24 History midodrine 10 mg tablet 10 mg PO BID 08/20/24 08/20/24 History multivitamin (Daily-Francine tablet) 1 tab PO DAILY 08/20/24 08/19/24 History Allergy/AdvReac Type Severity Reaction Status Date / Time Tetracyclic Antidepressants Allergy Intermediate Other Verified 08/20/24 21:32 Tricyclic Antidepressants Allergy Intermediate Other Verified 08/20/24 21:32 and Tricy ibuprofen Allergy Mild PT UNSURE Verified 08/20/24 21:32 OF REACTION Phenylpiperazine Allergy NEEDS Verified 08/20/24 21:32 Antidepressant FOLLOW-UP Family History Father Diabetes Heart disease Mother Heart disease Surgical History S/P right hemicolectomy History of arteriovenostomy for renal dialysis S/P cardiac pacemaker procedure S/P laparoscopic cholecystectomy Social History household members: spouse Smoking Status: Former smoker Tobacco: How many years used: 10 how long ago did patient quit smokin years alcohol intake: never ROS ROS Narrative Review of Systems: Constitutional: Patient admits to fatigue but she denies fever or chills. Eyes: Patient denies changes in vision or discharge from eyes. ENT: Patient denies runny nose, sore throat or ear pain. Resp: Patient denies SOB or cough. CV: Patient denies chest pain, palpitations or heart racing. GI: Patient admits to [facility] with dark stools. : Patient denies dysuria or hematuria. MSK: Patient admits to generalized weakness and fatigue but she denies arthralgias or myalgias. Skin: Patient denies rash, abscess or jaundice. Psych: Patient denies symptoms of uncontrolled depression or anxiety. Neuro: Patient denies headache, paresthesias or focal neurologic deficits. Allergy: Patient denies lip swelling, tongue swelling or urticaria. Hematology: Patient admits to [facility] with melena as per HPI. Endocrinology: Patient denies polyuria, polydipsia or polyphagia. 14 point ROS otherwise negative except for positives noted above in HPI. Physical Exam Const alert, oriented x3 and no apparent distress Constitutional Narrative: Obese. General Appearance: cooperative HEENT normocephalic, head/scalp atraumatic, hearing grossly normal bilaterally and moist oral mucous membranes Eyes PERRL and EOMs intact bilaterally Neck no lymphadenopathy and supple Resp normal respiratory effort, no retractions, no use of accessory muscles and clear to auscultation bilaterally Cardio regular rate and regular rhythm GI normal to inspection, nondistended, normoactive bowel sounds, soft to palpation, non-tender and non-distended GI Narrative: Obese. Extremity normal to inspection, full ROM and no clubbing, cyanosis or edema Skin Skin Narrative: Patient has no evidence of rash, abscess or jaundice. Neuro oriented x3, CN's II-XII intact bilaterally, moves all extremities and no focal motor deficits Sensorium / Orientation: awake, alert, oriented to person, oriented to place and oriented to time Speech: speech normal Psych affect normal Lab / Micro Data 08/21/24 11:30 08/21/24 04:00 Labs: Laboratory Results - last 24 hr 08/20/24 18:40: WBC 8.0, RBC 2.06 L, Hgb 6.3 L, Hct 20.3 L, MCV 98.5, MCH 30.6, MCHC 31.0 L, RDW Std Deviation 61.8 H, RDW Coeff of Ernie 17.5 H, Plt Count 247, MPV 10.7, Immature Gran % (Auto) 0.500, Neut % (Auto) 83.6 H, Lymph % (Auto) 6.8 L, [place] % (Auto) 7.4, Eos % (Auto) 1.1, Baso % (Auto) 0.6, Absolute Neuts (auto) 6.7, Absolute Lymphs (auto) 0.54 L, Nucleated RBC % 0, Sodium 137, Potassium 3.2 L, Chloride 101, Carbon Dioxide 31.0, Anion Gap 5, BUN 23 H, Creatinine 2.53 H, Estim Creat Clear Calc 21.47, Est GFR (MDRD) Af Amer 24 L, Est GFR (MDRD) Non-Af 20 L, BUN/Creatinine Ratio 9.1 L, Glucose 126 H, Calcium 7.6 L, Total Bilirubin 0.30, AST 31, ALT 29, Alkaline Phosphatase 75, Total Protein 5.3 L, Albumin 2.2 L, Globulin 3.1, Albumin/Globulin Ratio 0.7 L, Lipase 17, Blood Type O POSITIVE, Antibody Screen NEGATIVE 08/20/24 19:04: Crossmatch See Detail 08/21/24 04:00: WBC 9.7, RBC 2.70 L, Hgb 8.3 L, Hct 25.9 L, MCV 95.9, MCH 30.7, MCHC 32.0, RDW Std Deviation 58.8 H, RDW Coeff of Ernie 17.4 H, Plt Count 256, MPV 11.1, Immature Gran % (Auto) 0.500, Neut % (Auto) 81.9 H, Lymph % (Auto) 8.1 L, [place] % (Auto) 7.7, Eos % (Auto) 1.2, Baso % (Auto) 0.6, Absolute Neuts (auto) 8.0 H, Absolute Lymphs (auto) 0.79 L, Nucleated RBC % 0, Sodium 134 L, Potassium 3.4 L, Chloride 98, Carbon Dioxide 28.0, Anion Gap 8, BUN 27 H, Creatinine 2.86 H, Estim Creat Clear Calc 18.85, Est GFR (MDRD) Af Amer 21 L, Est GFR (MDRD) Non-Af 17 L, BUN/Creatinine Ratio 9.4 L, Glucose 102, Calcium 8.0 L, Magnesium 1.8, Total Bilirubin 0.40, AST 31, ALT 27, Alkaline Phosphatase 81, Total Protein 6.0 L, Albumin 2.4 L, Globulin 3.6, Albumin/Globulin Ratio 0.7 L, TSH 1.440 08/21/24 11:30: Hgb 7.3 L, Hct 22.7 L Micro: Microbiology 08/20/24 18:35 Stool Stool Occult Blood (JAZMÍN) - Final Occult Blood Positive Imaging Radiology Impression Abdomen/Pelvis CTA 08/20/24 18:18 IMPRESSION: Status post right hemicolectomy. There is a linear density seen in the distal sigmoid colon of uncertain etiology possibly representing a surgical clip. This is unchanged from the reference exam. There is no active bleeding. There are no acute abnormalities. Electronically Signed: Flex Bone MD at 19:43 EST , Assessment & Plan Assessment/Plan (1) Melena: (2) Anemia due to acute blood loss: (3) Adverse drug reaction: QUALIFIERS: Encounter type: initial encounter Qualified Code(s): T50.905A - Adverse effect of unspecified drugs, medicaments and biological substances, initial encounter (4) Colon cancer: QUALIFIERS: Colon location: ascending Qualified Code(s): C18.2 - Malignant neoplasm of ascending colon (5) S/P right hemicolectomy: (6) Chronic kidney disease on chronic dialysis: (7) Obesity (BMI 30-39.9): PLAN: Plan 74-year-old with history of end-stage renal disease on hemodialysis and recent diagnosis of colon cancer status post right hemicolectomy presents with LGIB with Melanotic Stool with a corresponding [id number]-[id number] Blood Loss Anemia of 6.3 g/dL present on admission requiring transfusion in the setting of a known history of GERD; already on Protonix with suspected PUD. Give Protonix drip for presumed PUD as the likely source of blood loss. Transfuse blood for hemoglobin <7 g/dL. Give Zofran IV prn nausea. Give Morphine IV prn for severe (level 6-10/10) pain. Patient will be prepped for EGD and colonoscopy to evaluate upper lower GI tract. History of Colon Cancer; s/p Right hemicolectomy with CT this admission positive for a linear density seen in the distal sigmoid colon of uncertain etiology possibly representing a surgical clip complicating #1 & #2 - Noted. Hopefully this area can be visually inspected upon endoscopy. Charges/Coding Visit Charges Inpatient E&M: 16761 Init Hosp L3
[2024-08-20] MEDS: Polyethylene Glycol 3350 BOWEL PREP PO (23:02)
[2024-08-21] VITALS (17 sets, daily range): BP systolic 85–121; BP diastolic 42–77; PULSE 90–110; RESP 14–20; TEMP 36.3–36.8; O2SAT 97–100; BMI 38.4
[2024-08-21] MEDS: Ondansetron 4 MG/2 ML Vial IV (00:19)
[2024-08-21] MEDS: Magnesium Sulfate 1 GM in Dextrose 5%-Water (100mL Bag) 100 ML IV (03:24)
[2024-08-21] MEDS: Pantoprazole Sodium 80 MG in 0.9% Normal Saline (100mL Bag) 80 ML 10 MG CONT INF (04:49)
[2024-08-21 04:52] LABS: Absolute Lymphocyte Count 0.79 X10^3/uL (0.83-4.51); Basophil# 0.06 X10^3/uL; Basophil% 0.6 % (0-1); Eosinophil# 0.12 X10^3/uL; Eosinophils% 1.2 % (0-5); Hematocrit 25.9 % (37-47); Hemoglobin 8.3 g/dL (12.0-15.0); Lymphocyte # 0.79 X10^3/ul (0.83-4.51); Lymphocyte % 8.1 % (19-41); Mean Corpuscular Hgb 30.7 pg (27.0-32.0); Mean Corpuscular Volume 95.9 fL (81-99); Mean Platelet Vol. 11.1 fl (6.2-12.0); Monocyte# 0.75 X10^3/uL; Monocyte% 7.7 % (0-10); NRBC Flagged by Analyzer 0 % (0-5); Neutrophil # 7.95 X10^3/uL (2.7-7.7); Neutrophil % 81.9 % (47-70); Platelet Count 256 K/mm3 (150-450); RBC Distribution Width CV 17.4 % (11.6-14.6); RBC Distribution Width SD 58.8 fl (35.1-43.9); White Blood Count 9.7 K/mm3 (4.4-11.0)
[2024-08-21 05:17] LABS: ALB/GLOB Ratio 0.7 RATIO (0.9-2.4); AST(SGOT) 31 U/L (15-37); Alanine Aminotransfer ALT/SGPT 27 U/L (13-56); Albumin, Serum 2.4 g/dL (3.2-5.0); Alkaline Phosphatase 81 U/L (45-117); Anion Gap 8 (5-15); BUN 27 mg/dL (7-18); BUN/Creat Ratio 9.4 RATIO (10-20); Chloride 98 mmol/L (98-107); Creatinine, Serum 2.86 mg/dL (0.55-1.02); EST Glomerular Filtration Rate 17 mL/min (>60); Est Glom Filt Rate - Afr Amer 21 mL/min (>60); Estimated Creatinine Clearance 18.85 ml/min; Globulin 3.6 g/dL (2.2-4.2); Glucose 102 mg/dL (74-106); Magnesium 1.8 mg/dL (1.6-2.6); Potassium 3.4 mmol/L (3.5-5.1); Sodium Level 134 mmol/L (136-145)
--- NOTE | 2024-08-21 05:55 | EKG12_ITS ---
Test Reason : PRE-OP Blood Pressure : */* mmHG Vent. Rate : 97 BPM Atrial Rate : 97 BPM P-R Int : 170 ms QRS Dur : 156 ms QT Int : 420 ms P-R-T Axes : 41 121 -49 degrees QTcB Int : 533 ms Atrial-sensed ventricular-paced rhythm Abnormal ECG When compared with ECG of 20-Aug-2024 18:10, MANUAL COMPARISON REQUIRED DATA IS UNCONFIRMED Confirmed by JOSEPH CHILDERS, FRANNIE ([id number]), restaurant expeditor GAY BUSH ([id number]) on 08/23/2024 12:44:16 PM Referred By: Confirmed By: FRANNIE RUIZ MD
--- NOTE | 2024-08-21 09:42 | PCM.PN.HOSP ---
Reason for Visit Reason for Visit: Diagnoses Malignant neoplasm of ascending colon (08/20/24) Malignant neoplasm of colon, unspecified (08/20/24) Acute posthemorrhagic anemia (08/20/24) Obesity, unspecified (08/20/24) Melena (08/20/24) Gastrointestinal hemorrhage, unspecified (08/20/24) Chronic kidney disease, stage 5 (08/20/24) End stage renal disease (08/20/24) Adverse effect of unspecified drugs, medicaments and biological substances, initial encounter (08/20/24) Acquired absence of other specified parts of digestive tract (08/20/24) Dependence on renal dialysis (08/20/24) Objective Data Objective Data Vital Signs: Vital Signs Temp Pulse Resp BP Pulse Ox O2 Del Method O2 Flow Rate 98.2 F 99 16 110/60 97 Nasal Cannula 2 08/21/24 05:00 08/21/24 05:00 08/21/24 05:00 08/21/24 05:00 08/21/24 07:40 08/21/24 07:40 08/21/24 07:40 Oxygen Flow Rate (L/min) 2 Oxygen Delivery Method Nasal Cannula Weight: 209 lb 15.845 oz Body Mass Index (BMI) 38.4 Intake & Output: Intake and Output for Last 24 Hours 08/19/24 08/20/24 08/21/24 23:59 23:59 23:59 Intake Total 35 / 2035 2701.83 / 2701.83 Output Total 1100 / 1100 Balance 35 / 1135 1601.83 / 1601.83 Lab / Micro Data 08/21/24 11:30 08/21/24 04:00 Labs: Laboratory Results - last 24 hr 08/20/24 18:40: WBC 8.0, RBC 2.06 L, Hgb 6.3 L, Hct 20.3 L, MCV 98.5, MCH 30.6, MCHC 31.0 L, RDW Std Deviation 61.8 H, RDW Coeff of Ernie 17.5 H, Plt Count 247, MPV 10.7, Immature Gran % (Auto) 0.500, Neut % (Auto) 83.6 H, Lymph % (Auto) 6.8 L, [place] % (Auto) 7.4, Eos % (Auto) 1.1, Baso % (Auto) 0.6, Absolute Neuts (auto) 6.7, Absolute Lymphs (auto) 0.54 L, Nucleated RBC % 0, Sodium 137, Potassium 3.2 L, Chloride 101, Carbon Dioxide 31.0, Anion Gap 5, BUN 23 H, Creatinine 2.53 H, Estim Creat Clear Calc 21.47, Est GFR (MDRD) Af Amer 24 L, Est GFR (MDRD) Non-Af 20 L, BUN/Creatinine Ratio 9.1 L, Glucose 126 H, Calcium 7.6 L, Total Bilirubin 0.30, AST 31, ALT 29, Alkaline Phosphatase 75, Total Protein 5.3 L, Albumin 2.2 L, Globulin 3.1, Albumin/Globulin Ratio 0.7 L, Lipase 17, Blood Type O POSITIVE, Antibody Screen NEGATIVE 08/20/24 19:04: Crossmatch See Detail 08/21/24 04:00: WBC 9.7, RBC 2.70 L, Hgb 8.3 L, Hct 25.9 L, MCV 95.9, MCH 30.7, MCHC 32.0, RDW Std Deviation 58.8 H, RDW Coeff of Ernie 17.4 H, Plt Count 256, MPV 11.1, Immature Gran % (Auto) 0.500, Neut % (Auto) 81.9 H, Lymph % (Auto) 8.1 L, [place] % (Auto) 7.7, Eos % (Auto) 1.2, Baso % (Auto) 0.6, Absolute Neuts (auto) 8.0 H, Absolute Lymphs (auto) 0.79 L, Nucleated RBC % 0, Sodium 134 L, Potassium 3.4 L, Chloride 98, Carbon Dioxide 28.0, Anion Gap 8, BUN 27 H, Creatinine 2.86 H, Estim Creat Clear Calc 18.85, Est GFR (MDRD) Af Amer 21 L, Est GFR (MDRD) Non-Af 17 L, BUN/Creatinine Ratio 9.4 L, Glucose 102, Calcium 8.0 L, Magnesium 1.8, Total Bilirubin 0.40, AST 31, ALT 27, Alkaline Phosphatase 81, Total Protein 6.0 L, Albumin 2.4 L, Globulin 3.6, Albumin/Globulin Ratio 0.7 L, TSH 1.440 Micro: Microbiology 08/20/24 18:35 Stool Stool Occult Blood (JAZMÍN) - Final Occult Blood Positive Radiography Diagnostic Testing: Radiology Impression Abdomen/Pelvis CTA 08/20/24 18:18 IMPRESSION: Status post right hemicolectomy. There is a linear density seen in the distal sigmoid colon of uncertain etiology possibly representing a surgical clip. This is unchanged from the reference exam. There is no active bleeding. There are no acute abnormalities. Electronically Signed: Flex Bone MD at 19:43 EST , Physical Exam Narrative Seen and examined. I talked to the patient's other 2 sister present in the room. Patient admitted with 3 dark stool yesterday. She had colon prep and further dark loose bowel movement.Patient feeling very weak and short of breath. No chest pain pressure tightness Physical exam General: Alert, Oriented x3, Cooperative HEENT: Atraumatic, PERRLA, EOMI, Normocephalic Oral: No Gingival or Mucosal Lesions/ Ulcerations Neck: Supple, No JVD, Negative Carotid Bruits Chest wall/Lungs: Air entry diminished in bilateral lung bases. No crepitation/rhonchi Cardiovascular: Regular rate, Regular Rhythm, Normal S1, Normal S2, No M/G/R Abdomen: Lower midline abdominal scar. Bowel Sounds Present, Soft, Non Tender, Non-Distended : No dysuria. No renal angle tenderness. No suprapubic tenderness. Extremities: No edema, Capillary Refill Less than 3 Seconds Skin: No rashes, No breakdown Musculoskeletal: No Tenderness to Palpation of Joints or Extremities Neurological: Cranial nerves II-XII grossly intact, DTR 2+/4. No acute focal neurological deficit. Psych/Mental Status: Normal Affect, Appropriate. Assessment & Plan Assessment/Plan (1) Melena: (2) Anemia due to acute blood loss: (3) Adverse drug reaction: QUALIFIERS: Encounter type: initial encounter Qualified Code(s): T50.905A - Adverse effect of unspecified drugs, medicaments and biological substances, initial encounter (4) Colon cancer: QUALIFIERS: Colon location: ascending Qualified Code(s): C18.2 - Malignant neoplasm of ascending colon (5) S/P right hemicolectomy: (6) Chronic kidney disease on chronic dialysis: (7) Obesity (BMI 30-39.9): PLAN: Plan 1. LGIB with Melanotic Stool with a corresponding Zczdl-eo-Oxetmia Blood Loss Anemia of 6.3 g/dL present on admission requiring transfusion in the setting of a known history of GERD; already on Protonix with suspected PUD - Admit to PCU. Keep NPO except sips, ice chips, medications and bowel prep. Give Protonix drip for presumed PUD as the likely source of blood loss. Transfuse blood for hemoglobin <7 g/dL. Give Zofran IV prn nausea. Give Morphine IV prn for severe (level 6-10/10) pain. Finally, we will consult gastroenterology to see this patient on-rounds in the AM for further recommendations regarding panendoscopy with help appreciated in advance. 08/21: Hemoglobin was from 6.3, 8.3 and 7.3. Monitor PRBC was transfused. Monitor H&H. Discussed with the GI. Patient going for colonoscopy 2. Adverse Drug Reaction to recently restarted Eliquis used to treat Atrial Fibrillation precipitating #1 - Hold Eliquis and avoid all potentially blood thinning agents for the foreseeable future. 3. History of Colon Cancer; s/p Right hemicolectomy with CT this admission positive for a linear density seen in the distal sigmoid colon of uncertain etiology possibly representing a surgical clip Noted. Hopefully this area can be visually inspected upon endoscopy. 4. ESRD on HD; (M-W-F) on Midodrine - Continue Midodrine after endoscopy when okay with GI. Resume HD as planned on Friday. 5. Obesity; with BMI of 38.9 this admission plus LAYLA; on BiPAP - Weight loss will be recommended. Check TSH. Resume nocturnal BiPAP as previous. This complicates her case and may hamper recovery. 6. History of arrhythmia; s/p PPM - Noted. 7. Former history of tobacco abuse - Noted. 8. History of restrictive lung disease - Stable. 9. History of glaucoma - Maintain eyes drops as previous. 10. OA - Stable. 11. DVT prophylaxis - SCD's. Pharmacological prophylaxis contraindicated Charges/Coding Visit Charges Inpatient E&M: 14319 Subs Hosp L2
--- NOTE | 2024-08-21 11:30 | CASEMGMT ---
ROXANE CANTOR Face to Face with patient for initial transition planning/care coordination assessment. ROXANE CANTOR introduced self and role at [facility]. Patient lying in bed, alert and oriented, family at bedside. Patient willing to participate in assessment and is able to answer all questions appropriately. Care providers, pharmacy, and demographics verified. Strata: 3 PCP: Cm Specialists: [facility] air defense specialist and pacer team Preferred Pharmacy: [facility] [place] Insurance: [employer], [employer] Prescription Benefit: yes Living Will/HPOA: yes, son Reji Heaton LNOK: , son Living Arrangements: Patient lives with in a single story home with 3 steps and railing to enter the home. Patient states she is independent at home, but sometime assists with care Transportation: , friends DME/HHC: Patient has shower chair, raised toilet, grab bars, walker, bipap, pulse ox, glucometer, and home oxygen through [facility] at 3lpm with portability. Patient is active for HHC with [facility]. Patient has been to [facility] in the past. Patient wishes to discharge home with resumption of HHC. ROXANE CANTOR discuss increased assistance with nursing staff x2, will monitor progress with therapy. Patient states she has no further needs or concerns at this time. RN CM sent resumption referral to [facility] if patient is able to return home. Green sheet placed on chart. CM to follow for discharge planning needs that may arise. Disposition Plan: TBD, anticipate HHC vs SNF pending course of treatment and progress with therapy. Nikki BLANCO, RN, CM
[2024-08-21 11:50] LABS: Hematocrit 22.7 % (37-47); Hemoglobin 7.3 g/dL (12.0-15.0)
--- NOTE | 2024-08-21 15:38 | OP.EGD_ITS ---
Patient Name: Cindy Heaton Procedure Date: 08/21/2024 1:27 PM Date of : 1950 Age: 74 Procedure: Upper GI endoscopy Indications: Acute post hemorrhagic anemia, Hematochezia Providers: Chris Nixon DO Medicines: Monitored Anesthesia Care Patient Profile: This is a 74 year old female. Refer to note in patient chart for documentation of history and physical. Patient has symptoms of acute abdominal cramping, acute abdominal pain and acute nausea. Complications: No immediate complications. Procedure: Pre-Anesthesia Assessment: - Prior to the procedure, a History and Physical was performed, and patient medications and allergies were reviewed. The patient is competent. The risks and benefits of the procedure and the sedation options and risks were discussed with the patient. All questions were answered and informed consent was obtained. Patient identification and proposed procedure were verified by the physician in the pre-procedure area. Mental Status Examination: alert and oriented. Airway Examination: normal oropharyngeal airway and neck mobility. Respiratory Examination: clear to auscultation. CV Examination: normal. Prophylactic Antibiotics: The patient does not require prophylactic antibiotics. Prior Anticoagulants: The patient has taken no anticoagulant or antiplatelet agents except for NSAID medication. ASA Grade Assessment: II - A patient with mild systemic disease. After reviewing the risks and benefits, the patient was deemed in satisfactory condition to undergo the procedure. The anesthesia plan was to use monitored anesthesia care (MAC). Immediately prior to administration of medications, the patient was re-assessed for adequacy to receive sedatives. The heart rate, respiratory rate, oxygen saturations, blood pressure, adequacy of pulmonary ventilation, and response to care were monitored throughout the procedure. The physical status of the patient was re-assessed after the procedure. After obtaining informed consent, the endoscope was passed under direct vision. Throughout the procedure, the patient's blood pressure, pulse, and oxygen saturations were monitored continuously. The Colonoscope was introduced through the mouth, and advanced to the second part of duodenum. The upper GI endoscopy was accomplished without difficulty. The patient tolerated the procedure well. Scope In: 2:36:26 PM Scope Out: 2:40:51 PM Total Procedure Duration Time 0 hours 4 minutes 25 seconds Findings: No gross lesions were noted in the entire esophagus. A small hiatal hernia was present. The exam of the stomach was otherwise normal. No gross lesions were noted in the second portion of the duodenum. One linear esophageal ulcer with stigmata of recent bleeding was found 20 to 23 cm from the incisors. The lesion was 5 mm in largest dimension. Coagulation for hemostasis using heater probe was successful. Impression: - No gross lesions in the entire esophagus. - Small hiatal hernia. - No gross lesions in the second portion of the duodenum. - No specimens collected. Recommendation: - Return patient to hospital fair. - Resume previous diet. - Continue present medications. Procedure Code(s): --- Professional --- 77198, Esophagogastroduodenoscopy, flexible, transoral; with control of bleeding, any method CPT copyright 2021 [employer]. All rights reserved. The codes documented in this report are preliminary and upon electric motor repairer review may be revised to meet current compliance requirements. Chris Nixon DO 08/21/2024 3:37:54 PM This report has been signed electronically. Number of Addenda: 0 Note Initiated On: 08/21/2024 1:27 PM
--- NOTE | 2024-08-21 15:39 | OP.CCLET_ITS ---
08/21/2024 Khloe Pabon Md Re : Upper GI endoscopy procedure for Cindy Heaton Jayro Pabon This procedure was performed on Wednesday, August 21, 2024. My impressions and recommendations are as follows: Impressions : - No gross lesions in the entire esophagus. - Small hiatal hernia. - No gross lesions in the second portion of the duodenum. - No specimens collected. Recommendations : - Return patient to hospital fair. - Resume previous diet. - Continue present medications. My findings are described in the full procedure note, which is enclosed. If I can be of further assistance, please feel free to contact me at . Sincerely, Chris Nixon, 08/21/2024 3:37:54 PM This report has been signed electronically.
--- NOTE | 2024-08-21 15:48 | OP.COLON_ITS ---
Patient Name: Cindy Heaton Procedure Date: 08/21/2024 2:41 PM Date of : 1950 Age: 74 Procedure: Colonoscopy Indications: Hematochezia Providers: Chris Nixon DO Medicines: Monitored Anesthesia Care Patient Profile: This is a 74 year old female. Refer to note in patient chart for documentation of history and physical. Patient has symptoms of acute abdominal cramping, acute abdominal pain and acute nausea. Last Colonoscopy: within the past 6 months. Complications: No immediate complications. Procedure: Pre-Anesthesia Assessment: - Prior to the procedure, a History and Physical was performed, and patient medications and allergies were reviewed. The patient is competent. The risks and benefits of the procedure and the sedation options and risks were discussed with the patient. All questions were answered and informed consent was obtained. Patient identification and proposed procedure were verified by the physician in the pre-procedure area. Mental Status Examination: alert and oriented. Airway Examination: normal oropharyngeal airway and neck mobility. Respiratory Examination: clear to auscultation. CV Examination: normal. Prophylactic Antibiotics: The patient does not require prophylactic antibiotics. Prior Anticoagulants: The patient has taken no anticoagulant or antiplatelet agents except for NSAID medication. ASA Grade Assessment: II - A patient with mild systemic disease. After reviewing the risks and benefits, the patient was deemed in satisfactory condition to undergo the procedure. The anesthesia plan was to use monitored anesthesia care (MAC). Immediately prior to administration of medications, the patient was re-assessed for adequacy to receive sedatives. The heart rate, respiratory rate, oxygen saturations, blood pressure, adequacy of pulmonary ventilation, and response to care were monitored throughout the procedure. The physical status of the patient was re-assessed after the procedure. After I obtained informed consent, the scope was passed under direct vision. Throughout the procedure, the patient's blood pressure, pulse, and oxygen saturations were monitored continuously. The Colonoscope was introduced through the anus and advanced to the terminal ileum. The colonoscopy was performed without difficulty. The patient tolerated the procedure well. The quality of the bowel preparation was adequate. The terminal ileum, ileocecal valve, appendiceal orifice, and rectum were photographed. Scope In: 2:48:06 PM Scope Out: 3:29:54 PM Total Procedure Duration Time 0 hours 41 minutes 48 seconds Findings: The perianal and digital rectal examinations were normal. A few small-mouthed diverticula were found in the recto-sigmoid colon and sigmoid colon. There was evidence of a prior end-to-side ileo-colonic anastomosis at the hepatic flexure. This was patent and was characterized by a hemorrhagic appearance, ulceration, a disrupted staple line and visible sutures. The anastomosis was traversed. To stop active bleeding, three hemostatic clips were successfully placed. Clip protective signal operator: [employer]. There was no bleeding at the end of the procedure. Coagulation for hemostasis using heater probe was successful. To treat the bleeding lesion, hemostatic spray was deployed. Several sprays were applied. There was no bleeding at the end of the procedure. Impression: - Diverticulosis in the recto-sigmoid colon and in the sigmoid colon. - Patent end-to-side ileo-colonic anastomosis, characterized by a hemorrhagic appearance, ulceration, a disrupted staple line and visible sutures. Clips were placed. Clip protective signal operator: [employer] SEQ. Treated with a heater probe. hemostatic spray applied. - No specimens collected. Recommendation: - Discharge patient to home. - Full liquid diet today. - Continue present medications. - No recommendation at this time regarding repeat colonoscopy due to age. Procedure Code(s): --- Professional --- 24285, Colonoscopy, flexible; with control of bleeding, any method CPT copyright 2021 [employer]. All rights reserved. The codes documented in this report are preliminary and upon mid level java developer review may be revised to meet current compliance requirements. Chris Nixon DO 08/21/2024 3:48:03 PM This report has been signed electronically. Number of Addenda: 0 Note Initiated On: 08/21/2024 2:41 PM
--- NOTE | 2024-08-21 15:48 | OP.CCLET_ITS ---
08/21/2024 Khloe Pabon Md Re : Colonoscopy procedure for Cindy Heaton Adrianar Cm This procedure was performed on Wednesday, August 21, 2024. My impressions and recommendations are as follows: Impressions : - Diverticulosis in the recto-sigmoid colon and in the sigmoid colon. - Patent end-to-side ileo-colonic anastomosis, characterized by a hemorrhagic appearance, ulceration, a disrupted staple line and visible sutures. Clips were placed. Clip decorative engraver: [employer]. Treated with a heater probe. hemostatic spray applied. - No specimens collected. Recommendations : - Discharge patient to home. - Full liquid diet today. - Continue present medications. - No recommendation at this time regarding repeat colonoscopy due to age. My findings are described in the full procedure note, which is enclosed. If I can be of further assistance, please feel free to contact me at . Sincerely, Chris Nixon, 08/21/2024 3:48:03 PM This report has been signed electronically.
--- NOTE | 2024-08-21 15:54 | PCM.PRE.AN2 ---
ASA Classification* ASA Classification ASA Classification: 4 and E (Mac) Assessment & Plan Anesthesia* Anesthesia Assessment Anesthesia Assessment: Discussed sedation and/or anesthesia options, risks, benefits, and alternatives with patient/parents/legal guardian/POA. Questions invited. The patient/parents/legal guardian/POA seems to understand and agrees to proceed with anesthesia plan. Reviewed the physical assessment, medical history, allergy history and patient home medications list prior to surgery/procedure/anesthetic and documented any changes. Performed airway and anesthesia risk assessments. Anesthesia Type Anesthesia Type: MAC Anesthesia Focused Assessment* Temperature: 98.1 F Pulse Rate: 103 Blood Pressure: 111/50 Respiratory Rate: 18 Pulse Ox: 98 Airway Assessment Mouth opens: >3 cm Mallampati Score: II Focused Labs Anesthesia Preop lab: CBC WBC 9.7 K/mm3 (4.4-11.0) 08/21/24 04:00 RBC 2.70 M/mm3 (4.2-5.4) L 08/21/24 04:00 Hgb 7.3 g/dL (12.0-15.0) L 08/21/24 11:30 Hct 22.7 % (37-47) L 08/21/24 11:30 Plt Count 256 K/mm3 (150-450) 08/21/24 04:00 CHEMISTRY Potassium 3.4 mmol/L (3.5-5.1) L 08/21/24 04:00 Sodium 134 mmol/L (136-145) L 08/21/24 04:00 Magnesium 1.8 mg/dL (1.6-2.6) 08/21/24 04:00 BUN 27 mg/dL (7-18) H 08/21/24 04:00 Creatinine 2.86 mg/dL (0.55-1.02) H 08/21/24 04:00 Glucose 102 mg/dL (74-106) 08/21/24 04:00 POC Glucose 114 mg/dL (70-110) H 06/25/21 10:12 TSH 1.440 uIU/mL (0.358-3.740) 08/21/24 04:00 COAG Pre-Assessment Diagnosis/Proposed Procedure Planned Operative Procedure(s): egd , colonoscopy Anesthesia History 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 When Was Last Pacemaker Check 08/12/2024 08/21/24 04:14 QUESTION #4 FULL TEXT: You/Your Family Experience fever (hyperthermia) with Anesthesia Last Oral Intake Last Oral intake: Last Oral Intake NPO since 01:30 08/21/24 04:14 Meds taken in AM with sips of No 08/21/24 04:14 water? Meds patient instructed to take am of surgery PONV PONV - couture alterations dressmaker: PONV - couture alterations dressmaker Female HX of Motion Sickness HX of N/V After Surgery Non-Smoker Duration of Surgery greater than 60 minutes Number of Risk Factors PONV Score Height & Weight Height & Weight: Anesthesia: Height & Weight Height 5 ft 2 in 08/21/24 04:14 Weight: 95.25 kg 08/21/24 04:55 Body Mass Index (BMI) 38.4 08/21/24 04:55 Respiratory Assessment Respiratory Assessment - couture alterations dressmaker: Respiratory Tract Infection Hx - couture alterations dressmaker Hx Respiratory Tract Infection No 08/21/24 04:14 STOP Sleep Apnea STOP Sleep Apnea - couture alterations dressmaker: STOP Sleep Apnea - couture alterations dressmaker Hx Hypertension No 08/21/24 13:24 Hx Sleep Apnea Yes 08/20/24 21:07 CPAP No 08/20/24 21:07 BIPAP Yes 08/20/24 21:07 Do you snore loudly (louder than talking or can be heard Do you often feel tired/ fatigued/ sleepy during daytime? Has anyone observed you stop breathing during sleep? STOP Results Positive 08/20/24 21:07 QUESTION #5 FULL TEXT : Do you snore loudly (louder than talking or can be heard through closed doors)? Tobacco Use History Tobacco Use History - couture alterations dressmaker: Tobacco Use History - couture alterations dressmaker Tobacco Use Smoking Status Former smoker 08/20/24 21:07 Hx Tobacco Use No 08/20/24 21:07 Years Smoking Packs Smoked per Day Smoking Cessation Date was No - quit smoking greater 08/20/24 21:07 within the last 15 years than 15 years ago Hx Smoking Cessation Date 03/13/85 08/20/24 21:07 Hx Smoking Cessation Counseling Hematologic Medial History Hematologic Hx - couture alterations dressmaker: Hematologic Medical Hx - oral surgeon Hx of Blood Transfusion Yes 08/20/24 21:07 Hx of Transfusion in last 3 Yes 08/20/24 21:07 Months Date of Last Transfusion (if 06/23/2024 08/20/24 21:07 within last 3 months) Ever experience any problems No 08/20/24 21:07 with transfusion(s)? Specify any problems Hx of Preganancy in last 3 No 08/20/24 21:07 Months Nurse Filling Out Transfusion JSNOW 08/20/24 21:07 & Questions: Date: 08/20/24 08/20/24 21:07 Time: 21:15 08/20/24 21:07 Patient unable to answer at this time (ie. confused, unrespo /Reproduction History /Reproductive History - couture alterations dressmaker: /Reproductive Hx- couture alterations dressmaker Hx Now Gestational Age (in weeks): EDC: Hx Hx Para Hx Section SAB No 06/25/24 09:12 Active Medications Active Medications: Current Medications Generic Name Dose Route Start Last Admin Trade Name Freq PRN Reason Stop Dose Admin Albuterol Sulfate 2.5 mg 08/20/24 21:04 Albuterol 2.5 Mg/3 Ml Vial.Neb. INHALATION Q2H PRN PRN SOB &/OR WHEEZING Docusate Sodium 100 mg 08/21/24 16:00 Docusate Sodium 100 Mg Capsule PO BID SIMONE Pantoprazole Sodium 80 mg/ 100 mls @ 10 mls/hr 08/20/24 18:30 08/21/24 04:49 Sodium Chloride CONT INF 10 mls/hr Q10H SIMONE Administration Iopamidol 0 ml 08/20/24 18:30 08/20/24 19:28 Contrast Allergy Safety Check IV Not Given X1 SIMONE Midodrine 10 mg 08/20/24 22:00 08/21/24 11:37 Midodrine Hcl 5 Mg Tablet PO Not Given BID SIMONE Morphine Sulfate 2 mg 08/20/24 21:04 Morphine 2 Mg/Ml Syringe IV Q4H PRN PRN Pain Score 6-10 Non-Formulary Medication 1 drp 08/20/24 22:00 Brimonidine [Alphagan P] RIGHT EYE BID SIMONE Non-Formulary Medication 1 drp 08/22/24 10:00 Fluorometholone EACH EYE QODAY SIMONE Ondansetron HCl 4 mg 08/20/24 21:04 08/21/24 00:19 Ondansetron 4 Mg/2 Ml Vial IV 4 mg Q8H PRN PRN Administration NAUSEA/VOMITING Sodium Chloride 10 - 40 ml 08/20/24 22:39 0.9% Saline Lock 10 Ml Syringe IV UD PRN SALINE FLUSH PFSH Medical History (Updated 08/20/24 @ 21:[address] Dylon Rosado, DO) Chronic kidney disease on chronic dialysis Heel spur Colon cancer Colonic mass ESRD (end stage renal disease) Restrictive lung disease Morbid obesity Pacemaker Hypercalcemia Wears glasses History of steroid therapy Walker as ambulation aid Diabetes History of renal dialysis History of renal disease Anemia Dietary restriction History of diverticulitis Former smoker BiPAP (biphasic positive airway pressure) dependence Sleep apnea Shortness of breath on exertion History of edema History of echocardiogram Cardiology follow-up encounter History of irregular heartbeat Heart disease Bone spur Low blood pressure Acute renal failure (ARF) Home Medications ?Medication ?Instructions ?Recorded ?Last Taken ?Type bisoprolol fumarate 5 mg tablet 2.5 mg PO MOWEFRSA BP 05/17/21 08/18/24 History brimonidine 0.1 % eye drops 1 drp RIGHT EYE BID glaucoma 05/31/21 08/19/24 History (Alphagan P) fluorometholone 0.1 % eye 1 drp EACH EYE QODAY eye drop 05/31/21 08/19/24 History drops,suspension sucroferric oxyhydroxide 500 mg 500 mg PO TIDCM Kidneys 06/24/24 08/19/24 History chewable tablet (Velphoro) pantoprazole 40 mg tablet,delayed 40 mg PO DAILY 30 days #0 tabs 07/02/24 08/19/24 Rx release prednisone 2.5 mg tablet 2.5 mg PO QDAY 07/15/24 08/19/24 History ondansetron 4 mg disintegrating 4 mg PO Q8H PRN nausea and 08/19/24 Unknown Rx tablet vomiting #20 tabs apixaban 5 mg tablet (Eliquis) 5 mg PO BID 08/20/24 08/20/24 History midodrine 10 mg tablet 10 mg PO BID 08/20/24 08/20/24 History multivitamin (Daily-Francine tablet) 1 tab PO DAILY 08/20/24 08/19/24 History Allergy/AdvReac Type Severity Reaction Status Date / Time Tetracyclic Antidepressants Allergy Intermediate Other Verified 08/20/24 21:32 Tricyclic Antidepressants Allergy Intermediate Other Verified 08/20/24 21:32 and Tricy ibuprofen Allergy Mild PT UNSURE Verified 08/20/24 21:32 OF REACTION Phenylpiperazine Allergy NEEDS Verified 08/20/24 21:32 Antidepressant FOLLOW-UP Family History Father Diabetes Heart disease Mother Heart disease Surgical History S/P right hemicolectomy History of arteriovenostomy for renal dialysis S/P cardiac pacemaker procedure S/P laparoscopic cholecystectomy Social History household members: spouse Smoking Status: Former smoker Tobacco: How many years used: 10 how long ago did patient quit smokin years alcohol intake: never Review of Systems (Anesthesia) ROS Narrative System reviewed and no additional complaints, except as documented.
--- NOTE | 2024-08-21 15:56 | PCM.POST.ANE ---
Anesthesia: Postop Eval I Current Vital Signs Temperature: 97.3 F Pulse Rate: 101 Blood Pressure: 102/42 Respiratory Rate: 19 Pulse Ox: 100 Assessment Airway patent: Yes Spontaneous unlabored respirations: Yes nausea: No Vomiting: No Anesthesia Complication: No Fluid Hydration Crystalloid volume administer (ml): 300 Total IV fluid infused: 300 Progress Note Anesthesia document: Postop Eval 1 completed: Yes
--- NOTE | 2024-08-21 15:57 | POSTOPAN2_ITS ---
Anesthesia Postop Eval I Sum Postop Eval Completion status Anesthesia document: Postop Eval 1 completed: Yes Anesthesia Postop Eval I Summary Anesthesia Postop Eval I Summary: Anesthesia Postop Eval I: Assessment Summary Airway patent Yes 08/21/24 15:56 PRESS [email or web address] Spontaneous unlabored Yes 08/21/24 15:56 PRESS [email or web address] respirations Mental status nausea No 08/21/24 15:56 PRESS SETTER.[email or web address] Vomiting No 08/21/24 15:56 PRESS SETTER.[email or web address] Anesthesia Postop Eval I: Fluid Summary Crystalloid volume administer 300 08/21/24 15:56 PRESS SETTER.JCOTE (ml) Colloids volume administered ( ml) Blood Product volume administered (ml) Total IV fluid infused 300 08/21/24 15:56 PRESS SETTER.JCOTE Anesthesia Postop Eval I: Summary Notes Anesthesia Complication No 08/21/24 15:56 PRESS SETTER.JCOTE Anesthesia Complication Comment: Post-operative progress note Anesthesia: Postop Eval II Evaluation Mental status: Awake and Asleep Pain Level: 0 nausea: No Vomiting: No
--- NOTE | 2024-08-21 15:57 | PCM.POSTANE2 ---
Anesthesia Postop Eval I Sum Postop Eval Completion status Anesthesia document: Postop Eval 1 completed: Yes Anesthesia Postop Eval I Summary Anesthesia Postop Eval I Summary: Anesthesia Postop Eval I: Assessment Summary Airway patent Yes 08/21/24 15:56 PAPER CONSERVATOR.[email or web address] Spontaneous unlabored Yes 08/21/24 15:56 PAPER CONSERVATOR.[email or web address] respirations Mental status nausea No 08/21/24 15:56 PAPER CONSERVATOR.JCOTE Vomiting No 08/21/24 15:56 PAPER CONSERVATOR.JCOTE Anesthesia Postop Eval I: Fluid Summary Crystalloid volume administer 300 08/21/24 15:56 PAPER CONSERVATOR.JCOTE (ml) Colloids volume administered ( ml) Blood Product volume administered (ml) Total IV fluid infused 300 08/21/24 15:56 PAPER CONSERVATOR.JCOTE Anesthesia Postop Eval I: Summary Notes Anesthesia Complication No 08/21/24 15:56 PAPER CONSERVATOR.JCOTE Anesthesia Complication Comment: Post-operative progress note Anesthesia: Postop Eval II Evaluation Mental status: Awake and Asleep Pain Level: 0 nausea: No Vomiting: No
[2024-08-21] MEDS: Docusate Sodium 100 MG Capsule PO (20:08)
[2024-08-21 21:52] LABS: Hematocrit 24.7 % (37-47); Hemoglobin 7.9 g/dL (12.0-15.0)
[2024-08-21] MEDS: Benzonatate 100 MG Capsule PO (23:36)
[2024-08-21 23:44] LABS: Hematocrit 24.9 % (37-47)
[2024-08-22] VITALS (7 sets, daily range): BP systolic 90–110; BP diastolic 46–67; PULSE 90–108; RESP 16–18; TEMP 36.3–36.7; O2SAT 85–100; BMI 38.4
[2024-08-22 06:23] LABS: Absolute Lymphocyte Count 0.79 X10^3/uL (0.83-4.51); Basophil# 0.06 X10^3/uL; Basophil% 0.7 % (0-1); Eosinophil# 0.43 X10^3/uL; Eosinophils% 4.8 % (0-5); Hematocrit 24.3 % (37-47); Hemoglobin 7.8 g/dL (12.0-15.0); Lymphocyte # 0.79 X10^3/ul (0.83-4.51); Lymphocyte % 8.8 % (19-41); Mean Corp Hgb Conc 32.1 g/dL (32-36); Mean Corpuscular Hgb 30.8 pg (27.0-32.0); Mean Platelet Vol. 10.9 fl (6.2-12.0); Monocyte# 0.71 X10^3/uL; Monocyte% 7.9 % (0-10); NRBC Flagged by Analyzer 0 % (0-5); Neutrophil # 6.96 X10^3/uL (2.7-7.7); Neutrophil % 77.2 % (47-70); Platelet Count 194 K/mm3 (150-450); RBC Distribution Width CV 18.3 % (11.6-14.6); RBC Distribution Width SD 62.4 fl (35.1-43.9); Red Blood Count 2.53 M/mm3 (4.2-5.4)
[2024-08-22 06:53] LABS: Anion Gap 8 (5-15); BUN 31 mg/dL (7-18); BUN/Creat Ratio 7.5 RATIO (10-20); Calcium,Total 8.4 mg/dL (8.5-10.1); Chloride 99 mmol/L (98-107); Creatinine, Serum 4.12 mg/dL (0.55-1.02); EST Glomerular Filtration Rate 11 mL/min (>60); Est Glom Filt Rate - Afr Amer 14 mL/min (>60); Estimated Creatinine Clearance 13.09 ml/min; Glucose 86 mg/dL (74-106); Potassium 3.4 mmol/L (3.5-5.1); Sodium Level 134 mmol/L (136-145)
[2024-08-22] MEDS: Docusate Sodium 100 MG Capsule PO ×2 (08:41→20:54)
--- NOTE | 2024-08-22 10:17 | PCM.PN.HOSP ---
Reason for Visit Reason for Visit: Diagnoses Malignant neoplasm of ascending colon (08/20/24) Malignant neoplasm of colon, unspecified (08/20/24) Acute posthemorrhagic anemia (08/20/24) Obesity, unspecified (08/20/24) Melena (08/20/24) Gastrointestinal hemorrhage, unspecified (08/20/24) Chronic kidney disease, stage 5 (08/20/24) End stage renal disease (08/20/24) Adverse effect of unspecified drugs, medicaments and biological substances, initial encounter (08/20/24) Acquired absence of other specified parts of digestive tract (08/20/24) Dependence on renal dialysis (08/20/24) Objective Data Objective Data Vital Signs: Vital Signs Temp Pulse Resp BP Pulse Ox O2 Del Method O2 Flow Rate 97.8 F 100 18 90/53 L 99 Room Air 2 08/22/24 08:36 08/22/24 08:36 08/22/24 08:36 08/22/24 08:36 08/22/24 08:36 08/22/24 09:12 08/22/24 03:15 Oxygen Flow Rate (L/min) 2 Oxygen Delivery Method Room Air Weight: 210 lb 1.608 oz Body Mass Index (BMI) 38.4 Intake & Output: Intake and Output for Last 24 Hours 08/20/24 08/21/24 08/22/24 23:59 23:59 23:59 Intake Total 2034 3301.83 / 3301.83 240 / 240 Output Total 1100 / 1100 0 / 0 Balance 35 / 1135 2201.83 / 2201.83 240 / 240 Lab / Micro Data 08/22/24 05:54 08/22/24 05:54 Labs: Laboratory Results - last 24 hr 08/20/24 19:40: Crossmatch See Detail 08/21/24 11:30: Hgb 7.3 L, Hct 22.7 L 08/21/24 21:40: Hgb 7.9 L, Hct 24.7 L 08/21/24 23:33: Hgb 8.0 L, Hct 24.9 L 08/22/24 05:54: WBC 9.0, RBC 2.53 L, Hgb 7.8 L, Hct 24.3 L, MCV 96.0, MCH 30.8, MCHC 32.1, RDW Std Deviation 62.4 H, RDW Coeff of Ernie 18.3 H, Plt Count 194, MPV 10.9, Immature Gran % (Auto) 0.600, Neut % (Auto) 77.2 H, Lymph % (Auto) 8.8 L, [place] % (Auto) 7.9, Eos % (Auto) 4.8, Baso % (Auto) 0.7, Absolute Neuts (auto) 7.0, Absolute Lymphs (auto) 0.79 L, Nucleated RBC % 0, Sodium 134 L, Potassium 3.4 L, Chloride 99, Carbon Dioxide 28.0, Anion Gap 8, BUN 31 H, Creatinine 4.12 H, Estim Creat Clear Calc 13.09, Est GFR (MDRD) Af Amer 14 L, Est GFR (MDRD) Non-Af 11 L, BUN/Creatinine Ratio 7.5 L, Glucose 86, Calcium 8.4 L Micro: Microbiology 08/20/24 18:35 Stool Stool Occult Blood (JAZMÍN) - Final Occult Blood Positive Physical Exam Narrative Seen and examined. Patient feels very weak and frail. Blood pressure 98/68. Hemoglobin improved but is still low. Did not had further dark stool. Had EGD and colonoscopy yesterday. Discussed the bleeding colonoscopy findings. No chest pain pressure tightness Physical exam General: Alert, Oriented x3, Cooperative. Frail HEENT: Atraumatic, PERRLA, EOMI, Normocephalic Oral: No Gingival or Mucosal Lesions/ Ulcerations Neck: Supple, No JVD, Negative Carotid Bruits Chest wall/Lungs: Air entry diminished in bilateral lung bases. No crepitation/rhonchi Cardiovascular: Regular rate, Regular Rhythm, Normal S1, Normal S2, No M/G/R Abdomen: Lower midline abdominal scar. Bowel Sounds Present, Soft, Non Tender, Non-Distended : No dysuria. No renal angle tenderness. No suprapubic tenderness. Extremities: No edema, Capillary Refill Less than 3 Seconds Skin: No rashes, No breakdown Musculoskeletal: No Tenderness to Palpation of Joints or Extremities Neurological: Cranial nerves II-XII grossly intact, DTR 2+/4. No acute focal neurological deficit. Psych/Mental Status: Flat affect. Assessment & Plan Assessment/Plan (1) Melena: (2) Anemia due to acute blood loss: (3) Adverse drug reaction: QUALIFIERS: Encounter type: initial encounter Qualified Code(s): T50.905A - Adverse effect of unspecified drugs, medicaments and biological substances, initial encounter (4) Colon cancer: QUALIFIERS: Colon location: ascending Qualified Code(s): C18.2 - Malignant neoplasm of ascending colon (5) S/P right hemicolectomy: (6) Chronic kidney disease on chronic dialysis: (7) Obesity (BMI 30-39.9): PLAN: Plan 1. LGIB with Melanotic Stool with a corresponding Tzuro-td-Kcrunzg Blood Loss Anemia of 6.3 g/dL present on admission requiring transfusion in the setting of a known history of GERD; already on Protonix with suspected PUD - Admit to PCU. Keep NPO except sips, ice chips, medications and bowel prep. Give Protonix drip for presumed PUD as the likely source of blood loss. Transfuse blood for hemoglobin <7 g/dL. Give Zofran IV prn nausea. Give Morphine IV prn for severe (level 6-10/10) pain. Finally, we will consult gastroenterology to see this patient on-rounds in the AM for further recommendations regarding panendoscopy with help appreciated in advance. 08/21: Hemoglobin was from 6.3, 8.3 and 7.3. Monitor PRBC was transfused. Monitor H&H. Discussed with the GI. Patient going for colonoscopy 08/22: 2 Units of PRBC was transfused. Repeat hemoglobin 7.8 g%. IV iron infusion ordered. Anastomotic site was hemorrhagic, ulceration and clip was placed on the disrupted staple line. Discussed with the GI did not think surgery has any role but patient has poor healing because of history of colon cancer, ESRD on hemodialysis and multiple other comorbidities. EGD and colonoscopy 08/21/2024 Impressions : - Diverticulosis in the recto-sigmoid colon and in the sigmoid colon. - Patent end-to-side ileo-colonic anastomosis, characterized by a hemorrhagic appearance, ulceration, a disrupted staple line and visible sutures. Clips were placed. Clip financial coach: [employer]. Treated with a heater probe. hemostatic spray applied. - No specimens collected. EGD Impressions : - No gross lesions in the entire esophagus. - Small hiatal hernia. - No gross lesions in the second portion of the duodenum. - No specimens collected. 2. Adverse Drug Reaction to recently restarted Eliquis used to treat Atrial Fibrillation precipitating #1 - Hold Eliquis and avoid all potentially blood thinning agents for the foreseeable future. 08/22 hold Eliquis for 5 more days. 3. History of Colon Cancer; s/p Right hemicolectomy with CT this admission positive for a linear density seen in the distal sigmoid colon of uncertain etiology possibly representing a surgical clip Noted. Hopefully this area can be visually inspected upon endoscopy. 4. ESRD on HD; (M-W-) on Midodrine - Continue Midodrine after endoscopy when okay with GI. Resume HD as planned on Friday. 5. Obesity; with BMI of 38.9 this admission plus LAYLA; on BiPAP - Weight loss will be recommended. Check TSH. Resume nocturnal BiPAP as previous. This complicates her case and may hamper recovery. 6. History of arrhythmia; s/p PPM - Noted. 7. Former history of tobacco abuse - Noted. 8. History of restrictive lung disease - Stable. 9. History of glaucoma - Maintain eyes drops as previous. 10. OA - Stable. 11. DVT prophylaxis - SCD's. Pharmacological prophylaxis contraindicated Charges/Coding Visit Charges Inpatient E&M: 50918 Subs Hosp L2
[2024-08-22] MEDS: Sodium Ferric Gluconat/Sucrose 250 MG in 0.9% Normal Saline (250mL Bag) 250 ML 135 MG IV (14:43)
[2024-08-22 19:40] LABS: Hematocrit 25.4 % (37-47); Hemoglobin 8.1 g/dL (12.0-15.0)
[2024-08-23] VITALS (20 sets, daily range): BP systolic 79–260; BP diastolic 33–62; PULSE 85–103; RESP 14–18; TEMP 36.5–37.1; O2SAT 94–100; BMI 38.4; BMI 38.6; BMI 37.8
[2024-08-23 06:42] LABS: Absolute Lymphocyte Count 0.68 X10^3/uL (0.83-4.51); Absolute Neutrophil Count 6.1 X10^3/uL (2.0-7.7); Basophil# 0.04 X10^3/uL; Basophil% 0.5 % (0-1); Eosinophil# 0.34 X10^3/uL; Eosinophils% 4.4 % (0-5); Hematocrit 24.2 % (37-47); Hemoglobin 7.5 g/dL (12.0-15.0); Lymphocyte # 0.68 X10^3/ul (0.83-4.51); Lymphocyte % 8.8 % (19-41); Mean Corpuscular Hgb 30.4 pg (27.0-32.0); Mean Platelet Vol. 10.9 fl (6.2-12.0); Monocyte# 0.55 X10^3/uL; Monocyte% 7.1 % (0-10); NRBC Flagged by Analyzer 0 % (0-5); Neutrophil # 6.06 X10^3/uL (2.7-7.7); Neutrophil % 78.8 % (47-70); Platelet Count 194 K/mm3 (150-450); RBC Distribution Width CV 18.5 % (11.6-14.6); RBC Distribution Width SD 62.3 fl (35.1-43.9); Red Blood Count 2.47 M/mm3 (4.2-5.4); White Blood Count 7.7 K/mm3 (4.4-11.0)
[2024-08-23 07:43] LABS: Anion Gap 7 (5-15); BUN 38 mg/dL (7-18); BUN/Creat Ratio 7.4 RATIO (10-20); Calcium,Total 7.9 mg/dL (8.5-10.1); Chloride 102 mmol/L (98-107); Creatinine, Serum 5.12 mg/dL (0.55-1.02); EST Glomerular Filtration Rate 9 mL/min (>60); Est Glom Filt Rate - Afr Amer 11 mL/min (>60); Estimated Creatinine Clearance 10.53 ml/min; Glucose 96 mg/dL (74-106); Potassium 3.7 mmol/L (3.5-5.1); Sodium Level 135 mmol/L (136-145)
--- NOTE | 2024-08-23 09:00 | PCM.CONS.R ---
Assessment & Plan Assessment/Plan (1) ESRD (end stage renal disease): PLAN: Impression/Plan: The patient is a 74-year-old female with past history of ESRD, atrial fibrillation, colon cancer status post right hemicolectomy, GERD, LAYLA, and anemia. Patient presented to hospital on 08/20/2024 with melena. She was found to have hemoglobin of 6.3 g/dL during workup in ED requiring blood transfusion. Patient is admitted to the hospital for further workup of lower GI bleed. Nephrology is following for ESRD. ESRD. The patient usually dialyzes on MWF schedule. We will arrange for dialysis on the usual schedule today. We will not use heparin with dialysis today. We will use 3K dialysate. While the patient to the hospital, we will continue dialysis on MWF schedule. HPI Consult Data Date of Consult: 08/23/24 HPI Narrative Reason for Consultation: ESRD HPI Narrative: The patient is a 74-year-old female with past history of ESRD, atrial fibrillation, colon cancer status post right hemicolectomy, GERD, LAYLA, and anemia. Patient presented to hospital on 08/20/2024 with melena. She was found to have hemoglobin of 6.3 g/dL during workup in ED requiring blood transfusion. Patient is admitted to the hospital for further workup of lower GI bleed. Nephrology is asked to see the patient because of ESRD and need for hemodialysis management. The patient denies current chest pain, dyspnea, nausea, vomiting. There is no increase in lower extremity edema. The patient usually dialyzes on MWF schedule at [facility]. Patient is followed at outpatient kidney center by Dr. Key. [facility] Medical History (Updated 08/23/24 @ 09:[address] Brenda Gr MD) ESRD (end stage renal disease) Chronic kidney disease on chronic dialysis Heel spur Colon cancer Colonic mass Restrictive lung disease Morbid obesity Pacemaker Hypercalcemia Wears glasses History of steroid therapy Walker as ambulation aid Diabetes History of renal dialysis History of renal disease Anemia Dietary restriction History of diverticulitis Former smoker BiPAP (biphasic positive airway pressure) dependence Sleep apnea Shortness of breath on exertion History of edema History of echocardiogram Cardiology follow-up encounter History of irregular heartbeat Heart disease Bone spur Low blood pressure Acute renal failure (ARF) Home Medications ?Medication ?Instructions ?Recorded ?Last Taken ?Type bisoprolol fumarate 5 mg tablet 2.5 mg PO MOWEFRSA BP 05/17/21 08/18/24 History brimonidine 0.1 % eye drops 1 drp RIGHT EYE BID glaucoma 05/31/21 08/19/24 History (Alphagan P) fluorometholone 0.1 % eye 1 drp EACH EYE QODAY eye drop 05/31/21 08/19/24 History drops,suspension sucroferric oxyhydroxide 500 mg 500 mg PO TIDCM Kidneys 06/24/24 08/19/24 History chewable tablet (Velphoro) pantoprazole 40 mg tablet,delayed 40 mg PO DAILY 30 days #0 tabs 07/02/24 08/19/24 Rx release prednisone 2.5 mg tablet 2.5 mg PO QDAY 07/15/24 08/19/24 History ondansetron 4 mg disintegrating 4 mg PO Q8H PRN nausea and 08/19/24 Unknown Rx tablet vomiting #20 tabs apixaban 5 mg tablet (Eliquis) 5 mg PO BID 08/20/24 08/20/24 History midodrine 10 mg tablet 10 mg PO BID 08/20/24 08/20/24 History multivitamin (Daily-Francine tablet) 1 tab PO DAILY 08/20/24 08/19/24 History Allergy/AdvReac Type Severity Reaction Status Date / Time Tetracyclic Antidepressants Allergy Intermediate Other Verified 08/20/24 21:32 Tricyclic Antidepressants Allergy Intermediate Other Verified 08/20/24 21:32 and Tricy ibuprofen Allergy Mild PT UNSURE Verified 08/20/24 21:32 OF REACTION Phenylpiperazine Allergy NEEDS Verified 08/20/24 21:32 Antidepressant FOLLOW-UP Family History Father Diabetes Heart disease Mother Heart disease Surgical History S/P right hemicolectomy History of arteriovenostomy for renal dialysis S/P cardiac pacemaker procedure S/P laparoscopic cholecystectomy Social History household members: spouse Smoking Status: Former smoker Tobacco: How many years used: 10 how long ago did patient quit smokin years alcohol intake: never ROS ROS Narrative As per HPI otherwise noncontributory. Physical Exam Narrative General: Alert and oriented x3, NAD. HEENT: Normocephalic, atraumatic. Mucous membrane moist without erythema. PERRLA, EOMI. Hearing is intact. Neck: Supple, no JVD. Trachea is midline. No thyromegaly or lymphadenopathy. Cardiovascular: Normal S1, S2. No rubs, murmurs, or gallops. Respiratory: Lungs are clear to auscultation bilaterally. No wheezing, rhonchi, or rales. Abdomen: Normal bowel sounds, soft, nontender, no guarding or rebound, no organomegaly. Extremities: No clubbing, cyanosis, or edema. Musculoskeletal: Full passive range of motion, no joint swelling. Psychiatric: Normal mood and affect. Skin: Warm and dry, no rash. Neurologic: Cranial nerve II to XII are grossly intact. No focal neurologic deficits. Lab / Micro Data 08/23/24 05:50 08/23/24 05:50 Labs: Laboratory Results - last 24 hr 08/22/24 19:25: Hgb 8.1 L, Hct 25.4 L 08/23/24 05:50: WBC 7.7, RBC 2.47 L, Hgb 7.5 L, Hct 24.2 L, MCV 98.0, MCH 30.4, MCHC 31.0 L, RDW Std Deviation 62.3 H, RDW Coeff of Ernie 18.5 H, Plt Count 194, MPV 10.9, Immature Gran % (Auto) 0.400, Neut % (Auto) 78.8 H, Lymph % (Auto) 8.8 L, [place] % (Auto) 7.1, Eos % (Auto) 4.4, Baso % (Auto) 0.5, Absolute Neuts (auto) 6.1, Absolute Lymphs (auto) 0.68 L, Nucleated RBC % 0, Sodium 135 L, Potassium 3.7, Chloride 102, Carbon Dioxide 26.0, Anion Gap 7, BUN 38 H, Creatinine 5.12 H, Estim Creat Clear Calc 10.53, Est GFR (MDRD) Af Amer 11 L, Est GFR (MDRD) Non-Af 9 L, BUN/Creatinine Ratio 7.4 L, Glucose 96, Calcium 7.9 L
--- NOTE | 2024-08-23 10:24 | PCM.PN.HOSP ---
Reason for Visit Reason for Visit: Diagnoses Malignant neoplasm of ascending colon (08/20/24) Malignant neoplasm of colon, unspecified (08/20/24) Acute posthemorrhagic anemia (08/20/24) Obesity, unspecified (08/20/24) Melena (08/20/24) Gastrointestinal hemorrhage, unspecified (08/20/24) Chronic kidney disease, stage 5 (08/20/24) End stage renal disease (08/20/24) Adverse effect of unspecified drugs, medicaments and biological substances, initial encounter (08/20/24) Acquired absence of other specified parts of digestive tract (08/20/24) Dependence on renal dialysis (08/20/24) Subjective Subjective Patient is a 74-year-old lady with history of end-stage renal disease, paroxysmal A-fib on apixaban who presented with bloody stools. Was found to have hemoglobin of 6.3 admitted to monitored bed for further management Objective Data Objective Data Vital Signs: Vital Signs Temp Pulse Resp BP Pulse Ox O2 Del Method O2 Flow Rate 97.8 F 97 16 112/53 L 95 Nasal Cannula 1 08/23/24 08:39 08/23/24 08:39 08/23/24 08:39 08/23/24 08:39 08/23/24 08:39 08/23/24 08:43 08/23/24 08:43 Oxygen Flow Rate (L/min) 1 Oxygen Delivery Method Nasal Cannula Weight: 95.3 kg Body Mass Index (BMI) 38.4 Intake & Output: Intake and Output for Last 24 Hours 08/21/24 08/22/24 08/23/24 23:59 23:59 23:59 Intake Total 3301.83 / 3301.83 1150 / 1400 250 / 250 Output Total 1100 / 1100 0 / 200 400 / 400 Balance 2201.83 / 2201.83 1150 / 1200 -150 / -150 Lab / Micro Data 08/23/24 05:50 08/23/24 05:50 Labs: Laboratory Results - last 24 hr 08/22/24 19:25: Hgb 8.1 L, Hct 25.4 L 08/23/24 05:50: WBC 7.7, RBC 2.47 L, Hgb 7.5 L, Hct 24.2 L, MCV 98.0, MCH 30.4, MCHC 31.0 L, RDW Std Deviation 62.3 H, RDW Coeff of Ernie 18.5 H, Plt Count 194, MPV 10.9, Immature Gran % (Auto) 0.400, Neut % (Auto) 78.8 H, Lymph % (Auto) 8.8 L, [place] % (Auto) 7.1, Eos % (Auto) 4.4, Baso % (Auto) 0.5, Absolute Neuts (auto) 6.1, Absolute Lymphs (auto) 0.68 L, Nucleated RBC % 0, Sodium 135 L, Potassium 3.7, Chloride 102, Carbon Dioxide 26.0, Anion Gap 7, BUN 38 H, Creatinine 5.12 H, Estim Creat Clear Calc 10.53, Est GFR (MDRD) Af Amer 11 L, Est GFR (MDRD) Non-Af 9 L, BUN/Creatinine Ratio 7.4 L, Glucose 96, Calcium 7.9 L Micro: Microbiology 08/20/24 18:35 Stool Stool Occult Blood (JAZMÍN) - Final Occult Blood Positive Physical Exam Narrative GENERAL: Somewhat lethargic HEENT: Atraumatic; normocephalic EYES; Anicteric, Normal Conjunctiva NECK; supple, normal thyroid, RESPIRATORY: Diminished to auscultation CARDIOVASCULAR: Regular S1 S2, GI: soft, normoactive bowel sounds, : No Renal angle tenderness; EXTREMITIES: No edema, no clubbing, MUSCULOSKELETAL: no muscle wasting NEURO: Awake; no lateralizing signs. SKIN: No Rash PSYCH; Flat affect Assessment & Plan Assessment/Plan (1) Anemia due to acute blood loss: (2) Anemia: PLAN: Plan Patient is a 74-year-old lady with history of end-stage renal disease, paroxysmal A-fib on apixaban who presented with bloody stools. Was found to have hemoglobin of 6.3 admitted to monitored bed for further management 1. Acute blood loss anemia ? Secondary to hemorrhagic colonic ulcers exacerbated by the use of apixaban. Patient has history of colon cancer. Underwent colonoscopy and EGD which demonstrated Diverticulosis in the recto-sigmoid colon and in the sigmoid colon. Patent end-to-side ileo-colonic anastomosis, characterized by a hemorrhagic appearance, ulceration, a disrupted staple line and visible sutures Clips were placed. 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 Treated with a heater probe. hemostatic spray applied.. Upper endoscopy demonstrated no gross lesions in the entire esophagus, small hiatal hernia and no gross lesions in the second portion of the duodenum. Patient is being transfused 2 unit PRBC 2. History of colon cancer ? Status post right hemicolectomy on 06/25/2024 3. End-stage renal disease ? Patient is on hemodialysis on Wednesdays and Fridays. Consult was placed to Dr. Gramajo with nephrology for dialysis orders 4. Class II obesity with BMI of 38.4 ? Complicating care weight loss advised 5. Conduction system disorder ? Status post pacemaker placement 6. Paroxysmal atrial fibrillation ? Rate controlled on systemic anticoagulation with apixaban which is currently being held given patient presentation 7. History of restrictive lung disease ? Stable 8. Diabetes mellitus type 2 ? Was previously on sitagliptin placed on Accu-Cheks before meals and at bedtime with sliding scale coverage 9. Physical deconditioning ? Requested for PT OT eval and social media job titles to assist with discharge planning 10. DVT prophylaxis ? Systemic anticoagulation contraindicated in view of patient presentation Time spent in the patient's overall evaluation,decision-making process, review of diagnostic data, adjustment of management, discussion with other providers, nursing nursing and ancillary staff involved in patient's care documentation, 50 Minutes Charges/Coding Visit Charges Inpatient E&M: 00435 Subs Hosp L3
--- NOTE | 2024-08-23 10:40 | AVDS_ITS ---
Reason For Study: Malfunciton of fistula RIGHT Inflow, 102.7/30.2 cm/sec. Inflow, 257.1 ml/min. Prox anastamosis, 253.6/53.5 cm/sec. Prox anastamosis, 745.2 ml/min. Prox graft, 154.3/19.7 cm/sec. Prox graft, 1562 ml/min. Mid graft, 18.7/8.1 cm/sec. Mid graft, 341.2 ml/min. Distal graft, 18.7/7.7 cm/sec. Distal graft, 181.4 ml/min. Distal anastamosis, 27.4/12.8 cm/sec. Distal anastamosis, 184.9 ml/min. Outflow, 34.6/18.9 cm/sec. Outflow, 202.6 ml/min. VL/AV Fistula/Dialysis Graft Scan Interpretation Summary Patent right arm AV graft with diminished velocities and poor flow volumes dist ally. Ordering Physician: Dylon Hudson Referring Physician: Khloe Pabon Performed By: Nikki Mccoy RVT
[2024-08-23] MEDS: Midodrine HCl 5 MG Tablet 10 MG PO (10:49)
--- NOTE | 2024-08-23 13:09 | NUR.TO.PHY ---
pt received 60mcg Mircera at [facility] on 08/16/24
[2024-08-23] MEDS: Ondansetron 4 MG/2 ML Vial IV (14:34)
[2024-08-23] MEDS: PureFlow B 3K Dialysis Soln 1 BAG 6 BAG PF (14:35)
[2024-08-23] MEDS: 0.9% Normal Saline 1,000 ML IV.SOLN. 1000 ML OPERA.SITE (14:35)
[2024-08-23] MEDS: 0.9% Saline Lock 10 ML Syringe IV (14:35)
[2024-08-23] MEDS: Acetaminophen 325 MG Tablet 650 MG PO (14:54)
[2024-08-23 15:45] LABS: BUN 37 mg/dL (7-18); Creatinine, Serum 5.19 mg/dL (0.55-1.02); EST Glomerular Filtration Rate 9 mL/min (>60); Est Glom Filt Rate - Afr Amer 10 mL/min (>60); Estimated Creatinine Clearance 10.27 ml/min
--- NOTE | 2024-08-23 17:31 | PN.GI_ITS ---
Subjective Subjective The patient has not had any more signs and symptoms of lower GI bleeding. She is currently getting transfused 2 units of red blood cells. She is tolerating a diet. Objective Data Objective Data Vital Signs: Vital Signs Temp Pulse Resp BP Pulse Ox O2 Del Method O2 Flow Rate 97.9 F 95 16 112/51 L 95 Nasal Cannula 1 08/23/24 16:53 08/23/24 16:53 08/23/24 16:53 08/23/24 16:53 08/23/24 16:53 08/23/24 16:53 08/23/24 16:53 Oxygen Flow Rate (L/min) 1 Oxygen Delivery Method Nasal Cannula Weight: 205 lb 11.06 oz Body Mass Index (BMI) 37.8 Intake & Output: Intake and Output for Last 24 Hours 08/21/24 08/22/24 08/23/24 23:59 23:59 23:59 Intake Total 3301.83 / 3301.83 1150 / 1400 500 / 500 Output Total 1100 / 1100 0 / 200 2460 / 2460 Balance 2201.83 / 2201.83 1150 / 1200 -1960 / -1960 Lab / Micro Data 08/23/24 05:50 08/23/24 05:50 Labs: Laboratory Results - last 24 hr 08/22/24 19:25: Hgb 8.1 L, Hct 25.4 L 08/23/24 05:50: WBC 7.7, RBC 2.47 L, Hgb 7.5 L, Hct 24.2 L, MCV 98.0, MCH 30.4, MCHC 31.0 L, RDW Std Deviation 62.3 H, RDW Coeff of Ernie 18.5 H, Plt Count 194, MPV 10.9, Immature Gran % (Auto) 0.400, Neut % (Auto) 78.8 H, Lymph % (Auto) 8.8 L, [place] % (Auto) 7.1, Eos % (Auto) 4.4, Baso % (Auto) 0.5, Absolute Neuts (auto) 6.1, Absolute Lymphs (auto) 0.68 L, Nucleated RBC % 0, Sodium 135 L, Potassium 3.7, Chloride 102, Carbon Dioxide 26.0, Anion Gap 7, BUN 38 H 08/23/24 05:50: BUN 37 H, Creatinine 5.12 H 08/23/24 05:50: Creatinine 5.19 H, Estim Creat Clear Calc 10.53 08/23/24 05:50: Estim Creat Clear Calc 10.27, Est GFR (MDRD) Af Amer 11 L 08/23/24 05:50: Est GFR (MDRD) Af Amer 10 L, Est GFR (MDRD) Non-Af 9 L 08/23/24 05:50: Est GFR (MDRD) Non-Af 9 L, BUN/Creatinine Ratio 7.4 L, Glucose 96, Calcium 7.9 L Micro: Microbiology 08/20/24 18:35 Stool Stool Occult Blood (JAZMÍN) - Final Occult Blood Positive Physical Exam Narrative GENERAL: Somewhat lethargic HEENT: Atraumatic; normocephalic EYES; Anicteric, Normal Conjunctiva NECK; supple, normal thyroid, RESPIRATORY: Diminished to auscultation CARDIOVASCULAR: Regular S1 S2, GI: soft, normoactive bowel sounds, : No Renal angle tenderness; EXTREMITIES: No edema, no clubbing, MUSCULOSKELETAL: no muscle wasting NEURO: Awake; no lateralizing signs. SKIN: No Rash PSYCH; Flat affect Assessment & Plan Assessment/Plan (1) Melena: (2) Anemia due to acute blood loss: (3) Adverse drug reaction: QUALIFIERS: Encounter type: initial encounter Qualified Code(s): T50.905A - Adverse effect of unspecified drugs, medicaments and biological substances, initial encounter (4) Colon cancer: QUALIFIERS: Colon location: ascending Qualified Code(s): C18.2 - Malignant neoplasm of ascending colon (5) S/P right hemicolectomy: (6) Chronic kidney disease on chronic dialysis: (7) Obesity (BMI 30-39.9): PLAN: Plan 74-year-old with LGIB with Melanotic Stool with a corresponding [id number] Blood Loss Anemia of 6.3 g/dL present on admission requiring transfusion in the setting of a known history of GERD. There were no signs of bleeding in her upper GI tract. She did have anastomotic ulcers with some mild dehiscence that was treated endoscopically. She will need to be off of anticoagulation for 5 days. Charges/Coding Visit Charges Inpatient E&M: 51210 Subs Hosp L3
[2024-08-23] MEDS: Docusate Sodium 100 MG Capsule PO (21:53)
[2024-08-24 03:12] VITALS: BMI 39.2
[2024-08-24 03:19] VITALS: BP 95/60; PULSE 88; RESP 16; TEMP 36.7; O2SAT 96
[2024-08-24 07:04] LABS: Absolute Lymphocyte Count 0.71 X10^3/uL (0.83-4.51); Absolute Neutrophil Count 7.7 X10^3/uL (2.0-7.7); Basophil# 0.05 X10^3/uL; Basophil% 0.5 % (0-1); Eosinophil# 0.43 X10^3/uL; Eosinophils% 4.5 % (0-5); Hematocrit 25.4 % (37-47); Hemoglobin 7.9 g/dL (12.0-15.0); Lymphocyte # 0.71 X10^3/ul (0.83-4.51); Lymphocyte % 7.4 % (19-41); Mean Corp Hgb Conc 31.1 g/dL (32-36); Mean Corpuscular Hgb 31.1 pg (27.0-32.0); Mean Platelet Vol. 11.3 fl (6.2-12.0); Monocyte# 0.66 X10^3/uL; Monocyte% 6.9 % (0-10); NRBC Flagged by Analyzer 0 % (0-5); Neutrophil # 7.69 X10^3/uL (2.7-7.7); Neutrophil % 80.3 % (47-70); Platelet Count 182 K/mm3 (150-450); RBC Distribution Width CV 18.6 % (11.6-14.6); RBC Distribution Width SD 63.2 fl (35.1-43.9); Red Blood Count 2.54 M/mm3 (4.2-5.4); White Blood Count 9.6 K/mm3 (4.4-11.0)
[2024-08-24 07:35] LABS: Anion Gap 10 (5-15); BUN 30 mg/dL (7-18); BUN/Creat Ratio 6.6 RATIO (10-20); Chloride 103 mmol/L (98-107); Creatinine, Serum 4.58 mg/dL (0.55-1.02); EST Glomerular Filtration Rate 10 mL/min (>60); Est Glom Filt Rate - Afr Amer 12 mL/min (>60); Estimated Creatinine Clearance 11.86 ml/min; Glucose 91 mg/dL (74-106); Magnesium 1.9 mg/dL (1.6-2.6); Phosphorus 4.5 mg/dL (2.5-4.9); Potassium 3.7 mmol/L (3.5-5.1); Sodium Level 137 mmol/L (136-145)
--- NOTE | 2024-08-24 08:11 | PCM.PN.HOSP ---
Reason for Visit Reason for Visit: Diagnoses Malignant neoplasm of ascending colon (08/20/24) Malignant neoplasm of colon, unspecified (08/20/24) Acute posthemorrhagic anemia (08/20/24) Anemia, unspecified (08/20/24) Obesity, unspecified (08/20/24) Melena (08/20/24) Gastrointestinal hemorrhage, unspecified (08/20/24) Chronic kidney disease, stage 5 (08/20/24) End stage renal disease (08/20/24) Adverse effect of unspecified drugs, medicaments and biological substances, initial encounter (08/20/24) Acquired absence of other specified parts of digestive tract (08/20/24) Dependence on renal dialysis (08/20/24) Subjective Subjective Patient seen much more interactive than the day prior. Plan is for patient to be assessed for possible home with home health Objective Data Objective Data Vital Signs: Vital Signs Temp Pulse Resp BP Pulse Ox O2 Del Method O2 Flow Rate 98.0 F 88 16 95/60 96 Nasal Cannula 1 08/24/24 03:19 08/24/24 03:19 08/24/24 03:19 08/24/24 03:19 08/24/24 03:19 08/24/24 03:20 08/24/24 03:20 Oxygen Flow Rate (L/min) 1 Oxygen Delivery Method Nasal Cannula Weight: 96.6 kg Body Mass Index (BMI) 39.2 Intake & Output: Intake and Output for Last 24 Hours 08/22/24 08/23/24 08/24/24 23:59 23:59 23:59 Intake Total 1150 / 1400 800 / 1050 250 / 250 Output Total 0 / 200 2460 / 2660 450 / 450 Balance 1150 / 1200 -1660 / -1610 -200 / -200 Lab / Micro Data 08/24/24 05:45 08/24/24 05:45 Labs: Laboratory Results - last 24 hr 08/23/24 05:50: BUN 37 H, Creatinine 5.19 H, Estim Creat Clear Calc 10.27, Est GFR (MDRD) Af Amer 10 L, Est GFR (MDRD) Non-Af 9 L 08/24/24 05:45: WBC 9.6, RBC 2.54 L, Hgb 7.9 L, Hct 25.4 L, MCV 100.0 H, MCH 31.1, MCHC 31.1 L, RDW Std Deviation 63.2 H, RDW Coeff of Ernie 18.6 H, Plt Count 182, MPV 11.3, Immature Gran % (Auto) 0.400, Neut % (Auto) 80.3 H, Lymph % (Auto) 7.4 L, [place] % (Auto) 6.9, Eos % (Auto) 4.5, Baso % (Auto) 0.5, Absolute Neuts (auto) 7.7, Absolute Lymphs (auto) 0.71 L, Nucleated RBC % 0, Sodium 137, Potassium 3.7, Chloride 103, Carbon Dioxide 25.0, Anion Gap 10, BUN 30 H, Creatinine 4.58 H, Estim Creat Clear Calc 11.86, Est GFR (MDRD) Af Amer 12 L, Est GFR (MDRD) Non-Af 10 L, BUN/Creatinine Ratio 6.6 L, Glucose 91, Calcium 8.0 L, Phosphorus 4.5, Magnesium 1.9 Micro: Microbiology 08/20/24 18:35 Stool Stool Occult Blood (JAZMÍN) - Final Occult Blood Positive Radiography Diagnostic Testing: Radiology Impression A/V Fistula Ultrasound 08/23/24 10:40 Interpretation Summary Patent right arm AV graft with diminished velocities and poor flow volumes distally. Ordering Physician: Dylon Hudson Referring Physician: Khloe Pabon Performed By: Nikki Mccoy RVWilma Physical Exam Narrative GENERAL: Somewhat lethargic HEENT: Atraumatic; normocephalic EYES; Anicteric, Normal Conjunctiva NECK; supple, normal thyroid, RESPIRATORY: Diminished to auscultation CARDIOVASCULAR: Regular S1 S2, GI: soft, normoactive bowel sounds, : No Renal angle tenderness; EXTREMITIES: No edema, no clubbing, MUSCULOSKELETAL: no muscle wasting NEURO: Awake; no lateralizing signs. SKIN: No Rash PSYCH; Flat affect Assessment & Plan Assessment/Plan (1) Anemia due to acute blood loss: (2) Anemia: PLAN: Plan Patient is a 74-year-old lady with history of end-stage renal disease, paroxysmal A-fib on apixaban who presented with bloody stools. Was found to have hemoglobin of 6.3 admitted to monitored bed for further management 1. Acute blood loss anemia ? Secondary to hemorrhagic colonic ulcers exacerbated by the use of apixaban. Patient has history of colon cancer. Underwent colonoscopy and EGD which demonstrated Diverticulosis in the recto-sigmoid colon and in the sigmoid colon. Patent end-to-side ileo-colonic anastomosis, characterized by a hemorrhagic appearance, ulceration, a disrupted staple line and visible sutures Clips were placed. 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 Treated with a heater probe. hemostatic spray applied.. Upper endoscopy demonstrated no gross lesions in the entire esophagus, small hiatal hernia and no gross lesions in the second portion of the duodenum. Patient is being transfused 2 unit PRBC 2. History of colon cancer ? Status post right hemicolectomy on 06/25/2024 3. End-stage renal disease ? Patient is on hemodialysis on Wednesdays and Fridays. Consult was placed to Dr. Gramajo with nephrology for dialysis orders 4. Class II obesity with BMI of 38.4 ? Complicating care weight loss advised 5. Conduction system disorder ? Status post pacemaker placement 6. Paroxysmal atrial fibrillation ? Rate controlled on systemic anticoagulation with apixaban which is currently being held given patient presentation 7. History of restrictive lung disease ? Stable 8. Diabetes mellitus type 2 ? Was previously on sitagliptin placed on Accu-Cheks before meals and at bedtime with sliding scale coverage 9. Physical deconditioning ? Requested for PT OT eval and dialysis social worker to assist with discharge planning 10. DVT prophylaxis ? Systemic anticoagulation contraindicated in view of patient presentation Time spent in the patient's overall evaluation,decision-making process, review of diagnostic data, adjustment of management, discussion with other providers, nursing nursing and ancillary staff involved in patient's care documentation, 35 Minutes
[2024-08-24 08:49] VITALS: BP 98/49; PULSE 99; RESP 17; TEMP 36.6; O2SAT 99
[2024-08-24 09:23] VITALS: RESP 18
--- NOTE | 2024-08-24 10:19 | PCM.DC.SUM ---
Providers Date of Admission: 08/20/24 Date of Discharge: 08/24/24 Primary Care Physician: Khloe Pabon MD Consultations 08/23/24 01:06 Consult: Nephrology Routine Consulting Provider: Bhaskar Putnam Reason for Consult: Patient has dialysis on Mondays, Wednesdays, and Fridays EMERGENT Consult: No MD Notified: Yes Date Notified: 08/23/24 Time Notified: 06:48 Method of Notification: Answering Service Reason For Visit: LGIB WITH MELENA ABLA REQUIRING TRANSFUSION DUE TO Diagnosis Discharge Diagnosis (1) Anemia due to acute blood loss: Status: Resolved Code(s): D62 - Acute posthemorrhagic anemia (2) Anemia: Status: Acute Code(s): D64.9 - Anemia, unspecified Plan Patient is a 74-year-old lady with history of end-stage renal disease, paroxysmal A-fib on apixaban who presented with bloody stools. Was found to have hemoglobin of 6.3 admitted to monitored bed for further management 1. Acute blood loss anemia ? Secondary to hemorrhagic colonic ulcers exacerbated by the use of apixaban. Patient has history of colon cancer. Underwent colonoscopy and EGD which demonstrated Diverticulosis in the recto-sigmoid colon and in the sigmoid colon. Patent end-to-side ileo-colonic anastomosis, characterized by a hemorrhagic appearance, ulceration, a disrupted staple line and visible sutures Clips were placed. 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 Treated with a heater probe. hemostatic spray applied.. Upper endoscopy demonstrated no gross lesions in the entire esophagus, small hiatal hernia and no gross lesions in the second portion of the duodenum. Patient is being transfused 2 unit PRBC ? 08/24/2024; patient hemoglobin remained stable at 7.5 2. History of colon cancer ? Status post right hemicolectomy on 06/25/2024 3. End-stage renal disease ? Patient is on hemodialysis on Wednesdays and Fridays. Consult was placed to Dr. Gramajo with nephrology for dialysis orders 4. Class II obesity with BMI of 38.4 ? Complicating care weight loss advised 5. Conduction system disorder ? Status post pacemaker placement 6. Paroxysmal atrial fibrillation ? Rate controlled on systemic anticoagulation with apixaban which is currently being held given patient presentation ? 08/24/2024; apixaban was held for 7 days per recommendations from GI on discharge 7. History of restrictive lung disease ? Stable 8. Diabetes mellitus type 2 ? Was previously on sitagliptin placed on Accu-Cheks before meals and at bedtime with sliding scale coverage 9. Physical deconditioning ? Requested for PT OT eval and oncology social work to assist with discharge planning 10. DVT prophylaxis ? Systemic anticoagulation contraindicated in view of patient presentation Time spent in the patient's overall evaluation,decision-making process, review of diagnostic data, adjustment of management, discussion with other providers, nursing nursing and ancillary staff involved in patient's care documentation, 35 Minutes Medications at Discharge Home Medications bisoprolol fumarate 5 mg tablet 2.5 mg PO MOWEFRSA BP 05/17/21 brimonidine 0.1 % eye drops (Alphagan P) 1 drp RIGHT EYE BID glaucoma 05/31/21 fluorometholone 0.1 % eye drops,suspension 1 drp EACH EYE QODAY eye drop 05/31/21 sucroferric oxyhydroxide 500 mg chewable tablet (Velphoro) 500 mg PO TIDCM Kidneys 06/24/24 pantoprazole 40 mg tablet,delayed release 40 mg PO DAILY 30 days #0 tabs 07/02/24 prednisone 2.5 mg tablet 2.5 mg PO QDAY 07/15/24 ondansetron 4 mg disintegrating tablet 4 mg PO Q8H PRN nausea and vomiting #20 tabs 08/19/24 apixaban 5 mg tablet (Eliquis) 5 mg PO BID 08/20/24 midodrine 10 mg tablet 10 mg PO BID 08/20/24 multivitamin (Daily-Francine tablet) 1 tab PO DAILY 08/20/24 Physical Exam Narrative GENERAL: Awake in no apparent distress HEENT: Atraumatic; normocephalic EYES; Anicteric, Normal Conjunctiva NECK; supple, normal thyroid, RESPIRATORY: Diminished to auscultation CARDIOVASCULAR: Regular S1 S2, GI: soft, normoactive bowel sounds, : No Renal angle tenderness; EXTREMITIES: No edema, no clubbing, MUSCULOSKELETAL: no muscle wasting NEURO: Awake; no lateralizing signs. SKIN: No Rash PSYCH; Flat affect Weight / BMI Weight Weight: 96.6 kg Body Mass Index (BMI) 39.2 ABG / Lab / Microbiology Data 08/24/24 05:45 08/24/24 05:45 Laboratory: Laboratory Results - last 24 hr 08/23/24 05:50: BUN 37 H, Creatinine 5.19 H, Estim Creat Clear Calc 10.27, Est GFR (MDRD) Af Amer 10 L, Est GFR (MDRD) Non-Af 9 L 08/24/24 05:45: WBC 9.6, RBC 2.54 L, Hgb 7.9 L, Hct 25.4 L, MCV 100.0 H, MCH 31.1, MCHC 31.1 L, RDW Std Deviation 63.2 H, RDW Coeff of Ernie 18.6 H, Plt Count 182, MPV 11.3, Immature Gran % (Auto) 0.400, Neut % (Auto) 80.3 H, Lymph % (Auto) 7.4 L, [place] % (Auto) 6.9, Eos % (Auto) 4.5, Baso % (Auto) 0.5, Absolute Neuts (auto) 7.7, Absolute Lymphs (auto) 0.71 L, Nucleated RBC % 0, Sodium 137, Potassium 3.7, Chloride 103, Carbon Dioxide 25.0, Anion Gap 10, BUN 30 H, Creatinine 4.58 H, Estim Creat Clear Calc 11.86, Est GFR (MDRD) Af Amer 12 L, Est GFR (MDRD) Non-Af 10 L, BUN/Creatinine Ratio 6.6 L, Glucose 91, Calcium 8.0 L, Phosphorus 4.5, Magnesium 1.9 Microbiology: Microbiology 08/20/24 18:35 Stool Stool Occult Blood (JAZMÍN) - Final Occult Blood Positive Radiography Diagnostic Testing: Radiology Impression A/V Fistula Ultrasound 08/23/24 10:40 Interpretation Summary Patent right arm AV graft with diminished velocities and poor flow volumes distally. Ordering Physician: Dylon Hudson Referring Physician: Khloe Pabon Performed By: Nikki Mccoy RVT D/C Instructions Discharge Diet: No restrictions Discharge Activity: Return to Normal Activity Call your doctor if you observe: Fever of 101 or Higher, Shortness of breath, Fainting spells and Chest pain Meaningful Use Info Meaningful Use Meaningful Use Diagnoses (Choose all that apply): None applicable Ischemic Stroke Statin Dosing Therapy Reference: STATIN DOSE THERAPY REFERENCE: * Patients > 75 years receive moderate or high dose statin therapy. * Patients 75 years or YOUNGER should receive HIGH intensity statin dose unless contraindicated. You will be required to document reason for non-treatment if statin daily dose does not meet guidelines. HIGH DOSE STATIN THERAPY DAILY Atorvastatin > than or = to 40 mg Rosuvastatin > than or = to 20 mg Amlodipine + Atorvastatin > than or = to 2.5/40 mg Ezetimibe + Simvastatin 10/80 mg Simvastatin 80mg Discharge Plan Admission Admit Date/Time: 08/20/24 20:30 Attending Provider: Dylon Hudson Primary Care Provider: Khloe Pabon Consulting Providers: Dylon Rosado; Bhaskar Putnam; Christian Mc Discharge Orders/Prescriptions Prescriptions: Continued bisoprolol fumarate 5 mg tablet 2.5 mg PO MOWE Rx Instructions: 1/2 tab in the evening on dialysis days and Friday prednisone 2.5 mg tablet 2.5 mg PO QDAY ondansetron 4 mg tablet,disintegrating 4 mg PO Q8H PRN (Reason: nausea and vomiting) Qty: 20 0RF fluorometholone 0.1 % drops,suspension 1 drp EACH EYE QODAY brimonidine [Alphagan P] 0.1 % drops 1 drp RIGHT EYE BID Patient Comments: instill ONE DROP IN THE RIGHT EYE TWICE DAILY Velphoro 500 mg tablet,chewable 500 mg PO TIDCM pantoprazole 40 mg Tablet,Delayed Release (Dr/Ec) 40 mg PO DAILY 30 Days Qty: 0 0RF multivitamin [Daily-Francine] Tablet 1 tab PO DAILY midodrine 10 mg tablet 10 mg PO BID Rx Instructions: TAKE 1 TABLET PRIOR TO DIALYSIS AND TAKE 1 TABLET WITH DIALYSIS Held Eliquis 5 mg tablet 5 mg PO BID Hold Instructions: Resume on 08/31/24. Referrals / Follow Up: Khloe Pabon MD [Primary Care Provider] - Disposition Disposition (needs filled in before D/C Order can be placed): Home Health Service Charges/Coding Visit Charges Inpatient E&M: 00889 Disch Hosp >30min
[2024-08-24 10:39] VITALS: BP 101/70; PULSE 93; RESP 17; TEMP 36.6; O2SAT 95
--- NOTE | 2024-08-24 11:00 | CASEMGMT ---
Patient has order for discharge. ROXANE CANTOR was updated by therapy that patient walked the hallway with nursing and was able to independent get up from the chair. ROXANE CANTOR in to discuss needs at discharge. Patient states she wishes to discharge home with resumption of HHC with [facility]. Patient denies additional needs or help at this time. Patient had no further questions or concerns. DC manager financial planning to send discharge information to [facility].
--- NOTE | 2024-08-24 11:04 | PHA.DC.MR.R ---
Pharmacy [place] Med Reconciliation Pharmacy Service has performed discharge medication reconciliation for this patient. The patient's discharge medication list was reviewed for discrepancies and discrepancies were resolved. Medications at Discharge Home Medications bisoprolol fumarate 5 mg tablet 2.5 mg PO MOWEFRSA BP 05/17/21 brimonidine 0.1 % eye drops (Alphagan P) 1 drp RIGHT EYE BID glaucoma 05/31/21 fluorometholone 0.1 % eye drops,suspension 1 drp EACH EYE QODAY eye drop 05/31/21 sucroferric oxyhydroxide 500 mg chewable tablet (Velphoro) 500 mg PO TIDCM Kidneys 06/24/24 pantoprazole 40 mg tablet,delayed release 40 mg PO DAILY 30 days #0 tabs 07/02/24 prednisone 2.5 mg tablet 2.5 mg PO QDAY 07/15/24 ondansetron 4 mg disintegrating tablet 4 mg PO Q8H PRN nausea and vomiting #20 tabs 08/19/24 apixaban 5 mg tablet (Eliquis) 5 mg PO BID 08/20/24 midodrine 10 mg tablet 10 mg PO BID 08/20/24 multivitamin (Daily-Francine tablet) 1 tab PO DAILY 08/20/24
--- NOTE | 2024-08-24 12:53 | CASEMGMT ---
Discharge Planning Discharge instructions sent via [facility] to [facility]. SOC scheduled for 08/25-08/26. Charis Crooks DC Planning Asst.
--- NOTE | 2024-08-24 14:55 | CASEMGMT ---
ROXANE CANTOR called Jacoby Poole to update that patient was discharged today and will return to in center treatment tomorrow. ROXANE CANTOR faxed discharge summary as requested by Zulema.
== END 2024-08-24 12:26 | disposition home health service (06) | DRG 377 ==
LOC: ED 20:11 → PCU 20:43
PROVIDERS: Internal Medicine; Internal Medicine Gastroenterology; Internal Medicine Nephrology; Nurse Practitioner; Admitting Provider Internal Medicine; Emergency Provider Emergency Medicine; PCP Student in an Organized Health Care Education/Training Program; Visit Provider Internal Medicine
PROC: 0DJD8ZZ Inspection of Lower Intestinal Tract, Via Natural or Artificial Opening Endoscopic (ICD-10-PCS; CPT 45378; principal; 2024-08-21 13:45)
DX: K92.2 Gastrointestinal hemorrhage, unspecified (principal); N18.6 End stage renal disease; D68.59 Other primary thrombophilia; C18.2 Malignant neoplasm of ascending colon; D62 Acute posthemorrhagic anemia; E11.22 Type 2 diabetes mellitus with diabetic chronic kidney disease; D63.0 Anemia in neoplastic disease; E66.9 Obesity, unspecified; I48.0 Paroxysmal atrial fibrillation; Z99.2 Dependence on renal dialysis; K21.9 Gastro-esophageal reflux disease without esophagitis; K44.9 Diaphragmatic hernia without obstruction or gangrene; M19.90 Unspecified osteoarthritis, unspecified site; K57.30 Diverticulosis of large intestine without perforation or abscess without bleeding; G47.33 Obstructive sleep apnea (adult) (pediatric); Z79.01 Long term (current) use of anticoagulants; Z79.52 Long term (current) use of systemic steroids; R09.02 Hypoxemia; Z87.891 Personal history of nicotine dependence; Z68.38 Body mass index [BMI] 38.0-38.9, adult; T45.515A Adverse effect of anticoagulants, initial encounter; Z95.0 Presence of cardiac pacemaker; E66.812 Obesity, class 2; Z90.49 Acquired absence of other specified parts of digestive tract; Z79.899 Other long term (current) drug therapy; Z88.8 Allergy status to other drugs, medicaments and biological substances
CPT/HCPCS: 36415; 74174; 80048; 80053; 82274; 82565; 83690; 83735; 84100; 84443; 84520; 85014; 85018; 85025; 86850; 86900; 86901; 86920; 86922; 90937; 93005; 93990; 94668; 97110; 97162; 99252; 99285; P9016; Q9967; A4216; G0257; G0463; J2405; J2916

== ENCOUNTER 2024-09-15 10:07 | Day surgery (SDC) | payer MEDICARE, OTHER, SELFPAY ==
[2024-09-14 08:04] VITALS: BMI 39.1
[2024-09-15 10:34] LABS: Hematocrit 31.5 % (37-47); Hemoglobin 9.9 g/dL (12.0-15.0); Mean Corp Hgb Conc 31.4 g/dL (32-36); Mean Corpuscular Hgb 29.9 pg (27.0-32.0); Mean Corpuscular Volume 95.2 fL (81-99); Platelet Count 193 K/mm3 (150-450); RBC Distribution Width CV 18.2 % (11.6-14.6); RBC Distribution Width SD 62.8 fl (35.1-43.9); Red Blood Count 3.31 M/mm3 (4.2-5.4); White Blood Count 6.1 K/mm3 (4.4-11.0)
[2024-09-15 11:14] LABS: Anion Gap 7 (5-15); BUN 34 mg/dL (7-18); BUN/Creat Ratio 7.2 RATIO (10-20); Calcium,Total 8.2 mg/dL (8.5-10.1); Chloride 105 mmol/L (98-107); Creatinine, Serum 4.74 mg/dL (0.55-1.02); EST Glomerular Filtration Rate 10 mL/min (>60); Est Glom Filt Rate - Afr Amer 12 mL/min (>60); Glucose 85 mg/dL (74-106); Potassium 3.6 mmol/L (3.5-5.1); Sodium Level 141 mmol/L (136-145)
--- NOTE | 2024-09-15 16:52 | PCM.OPRPT ---
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 She recently has had worsening clearance of the dialysis circuit during her sessions with increased venous return pressures. She presents now for fistulogram with possible intervention. Description of procedure: Upon obtaining form consent and verification correct patient procedure site patient was taken to the Collator Hand she was positioned prepped and draped in usual sterile fashion. Time was performed consultation administered Versed and fentanyl. Skin overlying the graft in the mid forearm was anesthetized 1% lidocaine the vessel accessed with a micropuncture needle wire under ultrasound guidance. This then exchanged for the 6 Albanian fistula sheath which was advanced towards the venous outflow tract. Due to subtraction fistulogram was then performed sequentially throughout the upper extremity to include the central venous system and superior vena cava filling into the right atrium. The venous outflow was then compressed and reflux contrast subtraction fistulogram was performed to assess the arterial portion of the circuit. The primary outflow of the graft was the upper arm cephalic vein which occluded in the mid upper arm with a large collateral that emptied into the brachial vein in the mid upper arm. There was no reconstitution of the cephalic vein. The remainder of the deep venous outflow appeared to be satisfactory with no evidence of obstruction. It was felt that this was not appropriate for endovascular invention and that surgical revision will be required. A nylon pursestring were then placed at the exit site and the sheath withdrawn followed by 5 minutes of manual pressure with satisfactory stasis noted. The patient was then taken to recovery area prior to discharge to home. Surgical Findings: See above Correctional Corporal blow up operator: No Complications Complications: No
== END 2024-09-15 13:15 | disposition home or self-care (01) ==
PROVIDERS: PCP Student in an Organized Health Care Education/Training Program; Referring Provider Physician Assistant; Visit Provider Physician Assistant
DX: T82.590A Other mechanical complication of surgically created arteriovenous fistula, initial encounter (principal); N18.6 End stage renal disease; E11.22 Type 2 diabetes mellitus with diabetic chronic kidney disease; X58.XXXA Exposure to other specified factors, initial encounter; Z99.2 Dependence on renal dialysis; Z95.0 Presence of cardiac pacemaker; Z87.891 Personal history of nicotine dependence
CPT/HCPCS: 36415; 36901; 76937; 80048; 85027; 99152; 99153; Q9967

== ENCOUNTER 2024-09-21 11:21 | Day surgery (SDC) | payer MEDICARE, OTHER, SELFPAY ==
[2024-09-21] VITALS (10 sets, daily range): BP systolic 97–115; BP diastolic 55–69; PULSE 83–106; RESP 16–28; TEMP 36.6–37.2; O2SAT 91–100; BMI 38.4
[2024-09-21 12:19] LABS: Bedside Glucose 75 mg/dL (74-106)
--- NOTE | 2024-09-21 12:57 | PRE.ANES_ITS ---
ASA Classification* ASA Classification ASA Classification: 3 Assessment & Plan Anesthesia* Anesthesia Assessment Anesthesia Assessment: Discussed sedation and/or anesthesia options, risks, benefits, and alternatives with patient/parents/legal guardian/POA. Questions invited. The patient/parents/legal guardian/POA seems to understand and agrees to proceed with anesthesia plan. Reviewed the physical assessment, medical history, allergy history and patient home medications list prior to surgery/procedure/anesthetic and documented any changes. Performed airway and anesthesia risk assessments. Anesthesia Type Anesthesia Type: MAC Anesthesia Focused Assessment* Temperature: 98.1 F Pulse Rate: 106 Blood Pressure: 115/60 Respiratory Rate: 18 Pulse Ox: 91 Airway Assessment Mouth opens: >3 cm Mallampati Score: II Focused Labs Anesthesia Preop lab: CBC WBC 6.1 K/mm3 (4.4-11.0) 09/15/24 10:14 RBC 3.31 M/mm3 (4.2-5.4) L 09/15/24 10:14 Hgb 9.9 g/dL (12.0-15.0) L 09/15/24 10:14 Hct 31.5 % (37-47) L 09/15/24 10:14 Plt Count 193 K/mm3 (150-450) 09/15/24 10:14 CHEMISTRY Potassium 3.6 mmol/L (3.5-5.1) 09/15/24 10:14 Sodium 141 mmol/L (136-145) 09/15/24 10:14 Magnesium 1.9 mg/dL (1.6-2.6) 08/24/24 05:45 Phosphorus 4.5 mg/dL (2.5-4.9) 08/24/24 05:45 BUN 34 mg/dL (7-18) H 09/15/24 10:14 Creatinine 4.74 mg/dL (0.55-1.02) H 09/15/24 10:14 Glucose 85 mg/dL (74-106) 09/15/24 10:14 POC Glucose 75 mg/dL (74-106) 09/21/24 11:56 TSH 1.440 uIU/mL (0.358-3.740) 08/21/24 04:00 COAG Pre-Assessment Diagnosis/Proposed Procedure Planned Operative Procedure(s): RUE AVF REVISION Anesthesia History 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 When Was Last Pacemaker Check 08/12/2024 09/15/24 10:48 QUESTION #4 FULL TEXT: You/Your Family Experience fever (hyperthermia) with Anesthesia Last Oral Intake Last Oral intake: Last Oral Intake NPO since 14:00 09/21/24 12:20 Meds taken in AM with sips of water? Meds patient instructed to take am of surgery PONV PONV - railroad design consultant: PONV - railroad design consultant Female Yes 09/17/24 14:35 HX of Motion Sickness No 09/17/24 14:35 HX of N/V After Surgery No 09/17/24 14:35 Non-Smoker Yes 09/17/24 14:35 Duration of Surgery greater No 09/17/24 14:35 than 60 minutes Number of Risk Factors 2 09/17/24 14:35 PONV Score Moderate Risk 09/17/24 14:35 Height & Weight Height & Weight: Anesthesia: Height & Weight Height 5 ft 2 in 09/21/24 12:20 Weight: 95.254 kg 09/21/24 12:20 Body Mass Index (BMI) 38.4 09/21/24 12:20 Respiratory Assessment Respiratory Assessment - railroad design consultant: Respiratory Tract Infection Hx - railroad design consultant Hx Respiratory Tract Infection No 09/17/24 14:35 STOP Sleep Apnea STOP Sleep Apnea - railroad design consultant: STOP Sleep Apnea - railroad design consultant Hx Hypertension No 09/17/24 14:35 Hx Sleep Apnea Yes 09/17/24 14:35 CPAP No 09/17/24 14:35 BIPAP Yes 09/17/24 14:35 Do you snore loudly (louder than talking or can be heard Do you often feel tired/ fatigued/ sleepy during daytime? Has anyone observed you stop breathing during sleep? STOP Results Positive 09/17/24 14:35 QUESTION #5 FULL TEXT : Do you snore loudly (louder than talking or can be heard through closed doors)? Tobacco Use History Tobacco Use History - railroad design consultant: Tobacco Use History - railroad design consultant Tobacco Use Smoking Status Former smoker 09/17/24 14:35 Hx Tobacco Use No 09/17/24 14:35 Years Smoking Packs Smoked per Day Smoking Cessation Date was No - quit smoking greater 09/17/24 14:35 within the last 15 years than 15 years ago Hx Smoking Cessation Date 03/13/85 09/17/24 14:35 Hx Smoking Cessation Counseling Hematologic Medial History Hematologic Hx - railroad design consultant: Hematologic Medical Hx - hiv prevention specialist Hx of Blood Transfusion Yes 09/17/24 14:35 Hx of Transfusion in last 3 Yes 09/17/24 14:35 Months Date of Last Transfusion (if 08/13/24 09/17/24 14:35 within last 3 months) Ever experience any problems No 09/17/24 14:35 with transfusion(s)? Specify any problems Hx of Preganancy in last 3 N/A 09/17/24 14:35 Months Nurse Filling Out Transfusion NBUCHER 09/17/24 14:35 & Questions: Date: 09/17/24 09/17/24 14:35 Time: 14:37 09/17/24 14:35 Patient unable to answer at this time (ie. confused, unrespo /Reproduction History /Reproductive History - railroad design consultant: /Reproductive Hx- railroad design consultant Hx Now Gestational Age (in weeks): EDC: Hx Hx Para Hx Section SAB No 09/17/24 14:35 Active Medications Active Medications: Current Medications Generic Name Dose Route Start Last Admin Trade Name Freq PRN Reason Stop Dose Admin Cefazolin Sodium 2 gm/ N/A 20 mls @ 400 mls/hr 09/21/24 13:00 IV 09/21/24 13:02 PREOP ONE PFSH Medical History Heel spur Colon cancer Colonic mass ESRD (end stage renal disease) Hypercalcemia Wears glasses History of steroid therapy Walker as ambulation aid Diabetes History of renal dialysis History of renal disease Anemia Dietary restriction History of diverticulitis Former smoker BiPAP (biphasic positive airway pressure) dependence Sleep apnea Shortness of breath on exertion History of edema History of echocardiogram Cardiology follow-up encounter History of irregular heartbeat Restrictive lung disease Morbid obesity Pacemaker Heart disease Bone spur Low blood pressure Acute renal failure (ARF) Home Medications ?Medication ?Instructions ?Recorded ?Last Taken ?Type bisoprolol fumarate 5 mg tablet 2.5 mg PO MOWEFRSA BP 05/17/21 08/18/24 History brimonidine 0.1 % eye drops 1 drp RIGHT EYE BID glaucoma 05/31/21 08/19/24 H istory (Alphagan P) fluorometholone 0.1 % eye 1 drp EACH EYE QODAY eye drop 05/31/21 08/19/24 History drops,suspension sucroferric oxyhydroxide 500 mg 500 mg PO TIDCM Kidneys 06/24/24 08/19/24 History chewable tablet (Velphoro) pantoprazole 40 mg tablet,delayed 40 mg PO DAILY 30 days #0 tabs 07/02/24 08/19/24 Rx release prednisone 2.5 mg tablet 2.5 mg PO QDAY 07/15/24 08/19/24 History ondansetron 4 mg disintegrating 4 mg PO Q8H PRN nausea and 08/19/24 Unknown Rx tablet vomiting #20 tabs midodrine 10 mg tablet 10 mg PO BID 08/20/24 08/20/24 History multivitamin (Daily-Francine tablet) 1 tab PO DAILY 08/20/24 08/19/24 History sitagliptin phosphate 25 mg tablet 25 mg PO DAILY PRN hyperglycemia 09/17/24 Unknown History (Anais) Allergy/AdvReac Type Severity Reaction Status Date / Time Tetracyclic Antidepressants Allergy Intermediate Other Verified 09/21/24 12:27 Tricyclic Antidepressants Allergy Intermediate Other Verified 09/21/24 12:27 and Tricy ibuprofen Allergy Mild PT UNSURE Verified 09/21/24 12:27 OF REACTION Phenylpiperazine Allergy NEEDS Verified 09/21/24 12:27 Antidepressant FOLLOW-UP Family History Father Diabetes Heart disease Mother Heart disease Surgical History History of colonoscopy History of esophagogastroduodenoscopy (EGD) S/P right hemicolectomy History of arteriovenostomy for renal dialysis S/P cardiac pacemaker procedure S/P laparoscopic cholecystectomy Social History household members: spouse Smoking Status: Former smoker Tobacco: How many years used: 10 how long ago did patient quit smokin years alcohol intake: never Review of Systems (Anesthesia) ROS Narrative System reviewed and no additional complaints, except as documented.
--- NOTE | 2024-09-21 13:21 | PCM.HP.BLA ---
History and Physical Allergies Tetracyclic Antidepressants Allergy (Intermediate, Verified 08/19/24 13:00) OtherTricyclic Antidepressants and Tricy Allergy (Intermediate, Verified 08/19/24 13:00) Otheribuprofen Allergy (Mild, Verified 08/19/24 13:00) PT UNSURE OF REACTIONPhenylpiperazine Antidepressant Allergy (Verified 08/19/24 13:00) NEEDS FOLLOW-UP Is last menstrual period known: Yes Post menopausal: Yes Patient : No Have you fallen in the past year?: No PFSH Medical History Heel spur Colon cancer Colonic mass ESRD (end stage renal disease) Chronic kidney disease on chronic dialysis Restrictive lung disease Morbid obesity Pacemaker Hypercalcemia Wears glasses History of steroid therapy Walker as ambulation aid Diabetes History of renal dialysis History of renal disease Anemia Dietary restriction History of diverticulitis Former smoker BiPAP (biphasic positive airway pressure) dependence Sleep apnea Shortness of breath on exertion History of edema History of echocardiogram Cardiology follow-up encounter History of irregular heartbeat Heart disease Bone spur Low blood pressure Acute renal failure (ARF) Surgical History S/P right hemicolectomy History of arteriovenostomy for renal dialysis S/P cardiac pacemaker procedure S/P laparoscopic cholecystectomy Family History Father Diabetes Heart diseaseMother Heart disease Social History household members: spouse Smoking Status: Former smoker Tobacco: How many years used: 10 how long ago did patient quit smokin years alcohol intake: never HPI HPI HPI: CLINTON COYEL, is a 74 F who presents to the office today for evaluation of AV fistula malfunction as referred from Joe. Joe reports high venous pressures and that her fistula is unable to make clearance. She has a right forearm brachiocephalic Artegraft collagen vascular loop graft which was created by Dr. Rob in June 2021. This was her initial AV access. She reports that since this was created she has only had 1 prior fistulogram which was performed in [place] and she does not think any ballooning or stenting occurred. She has previously had tunneled right IJ catheters. She does have a pacemaker/defibrillator in the left chest. From her perspective, she said dialysis seems to be going well. She reports she is completing all of her sessions. She has not noticed any difficulty cannulating or clotting or prolonged bleeding after decannulation. She reports they have told her that her clearances are lower. She is not having any new right upper extremity swelling, pain, numbness/paresthesias, coolness, weakness. She does have a history of diabetes, currently mostly diet controlled. She also reports a history of sarcoidosis for which she is on chronic steroid therapy. She reports related to her sarcoidosis she has associated heart failure, lung disease, and its thought that this likely contributed to her kidney disease as well. She is also status post recent right hemicolectomy due to colon cancer. She is doing well from this regard, reports currently just surveilling without a need for chemotherapy or radiation. ROS General General: Yes weight change, fatigue, colon cancer and weakness; No appetite or breast cancer HEENT HEENT: No difficulty swallowing, eye injury, eye surgery, swollen glands or hoarseness Endo Endocrine: Yes diabetes mellitus; No thyroid disease, thyroid cancer, Hair loss, heat intolerance or cold intolerance Skin Skin: No rash or changing moles Musc Musculoskeletal: Yes back problems and arthritis; No rheumatoid arthritis, gout or joint pain Cardio Cardiovascular: Yes pacemaker, heart disease and atrial fibrillation; No murmur, high blood pressure, heart attack, heart stent, palpitations, shortness of breat with exertion or chest pain Psych Psychiatric: No depression, anxiety or hearing voices Resp Respiratory: No shortness of breath, Yes sleep apnea, Yes cough, No COPD, No asthma, No emphysema and No wheezing Gastro Gastrointestinal: No abdominal pain, Yes nausea or vomiting, No diarrhea, No constipation, No blood in stool, No acid reflux, No hemorrhoids, No ulcers, No gallbladder problem and Yes black,tarry stools Aldo Hematologic: Yes blood thinners, No blood disorders, No bleeding, No anemia and No blood clots Neuro Neurologic: No system reviewed and no additional complaints, except as documented, No as per HPI, No abnormal gait, No abnormal hearing, No abnormal movements, No abnormal speech, No behavioral changes, No burning sensations, No confusion, No convulsions, Yes disequilibrium, Yes dizziness, No localized weakness, No frequent falls, No headache(s), No lack of coordination, No loss of vision, No memory loss, No numbness, No other visual disturbances, No radicular pain, Yes restless legs, No sensory deficit, No syncope, No tingling, No tremor(s), Yes weakness and No other Exam Const General: cooperative, comfortable and no acute distress Orientation: alert, awake and oriented x3 [facility] Head: normal to inspection, normocephalic and atraumatic Ears: hearing grossly normal bilaterally and external ears normal Nose: external nose normal Eyes General: appearance normal, both eyes and all related structures EOM: EOM intact bilaterally Neck Neck: normal visual inspection and trachea midline Carotids: no bruits Resp Effort & Inspection: normal respiratory effort, able to speak in complete sentences, not labored, no respiratory distress, no retractions, no stridor and no use of accessory muscles Auscultation: clear to auscultation bilaterally Cardio Rate: regular rate Rhythm: regular rhythm Pulses: brachial pulses present and radial pulses present Other: Right forearm AV loop graft with palpable pulse and thrill throughout. Bruit stronger at the medial proximal portion and extending proximally into her upper arm. Appears to be slightly aneurysmal around the access sites, skin is intact without ulceration. There is no associated edema, erythema. Skin General: no rashes or lesions noted Trauma: no lacerations or abrasions Wounds: no wounds Neuro General: gait normal, moves all extremities, no focal motor deficits and CN's II-XI intact bilaterally Speech: speech normal Psych Appearance: grossly normal Mental Status: mental status grossly normal Affect: normal affect Speech and Movement: speech and movement normal Attitude: cooperative Coding Level of Care Code Off vis,new,level 3 Diagnoses Dialysis AV fistula malfunction T82.590A Assessment and Plan Assessment and Plan (1) Dialysis AV fistula malfunction: Status: Acute Plan: -revision with jump graft
[2024-09-21] MEDS: Cefazolin 2 GM in Syringe IV (14:14)
[2024-09-21] MEDS: Lidocaine 1% (20 ml mdv) 20 ML Vial (14:45)
[2024-09-21] MEDS: Bupivacaine 0.25% 30 ML Vial (14:45)
[2024-09-21] MEDS: Heparin Injection (Vial) 5,000 UNIT/ML VIAL 5000 UNIT (15:14)
[2024-09-21] MEDS: Heparin 10,000 UNITS/10 ML Vial 10000 UNITS (15:15)
--- NOTE | 2024-09-21 16:34 | DCINST_ITS ---
Discharge Instructions Diet Discharge Diet: No restrictions Activity May shower in (days): 2 Lifting Restrictions: do not lift > 20 lbs with right arm x 14 days Additional Activity Instructions:: do not submerge incision x 14 days ok to use forearm graft for dialysis 09/22/24 Dressing / Incision Call your doctor if your incision/area has: Sudden Increased Bleeding, Increased Pain/ Swelling, Increased Redness and Foul Smelling Discharge Remove Dressing in: 1 day Cleanse incision/area with: Soap & Water Follow Up Care Test Results: Test results from this visit will be discussed in further detail at your follow- up appointment, if applicable. Discharge Plan Admission Attending Provider: Joe Lutz Primary Care Provider: Khloe Pabon Instructions Print Language: Albanian Discharge Orders/Prescriptions Prescriptions: New oxycodone 5 mg tablet 5 mg PO Q8H PRN (Reason: pain) 3 Days Qty: 9 0RF Continued bisoprolol fumarate 5 mg tablet 2.5 mg PO Rx Instructions: 1/2 tab in the evening on dialysis days and Friday prednisone 2.5 mg tablet 2.5 mg PO QDAY ondansetron 4 mg tablet,disintegrating 4 mg PO Q8H PRN (Reason: nausea and vomiting) Qty: 20 0RF fluorometholone 0.1 % drops,suspension 1 drp EACH EYE QODAY brimonidine [Alphagan P] 0.1 % drops 1 drp RIGHT EYE BID Patient Comments: instill ONE DROP IN THE RIGHT EYE TWICE DAILY Januvia 25 mg tablet 25 mg PO DAILY PRN (Reason: hyperglycemia) Rx Instructions: BGL >150 TAKE MED Velphoro 500 mg tablet,chewable 500 mg PO TIDCM pantoprazole 40 mg Tablet,Delayed Release (Dr/Ec) 40 mg PO DAILY 30 Days Qty: 0 0RF multivitamin [Daily-Francine] Tablet 1 tab PO DAILY midodrine 10 mg tablet 10 mg PO BID Rx Instructions: TAKE 1 TABLET PRIOR TO DIALYSIS AND TAKE 1 TABLET WITH DIALYSIS Referrals / Follow Up: Khloe Pabon MD [Primary Care Provider] - Disposition Disposition (needs filled in before D/C Order can be placed): Home, Self Care
--- NOTE | 2024-09-21 17:04 | PCM.OPRPT ---
Operative Report (Standard) Operative Information Date of Procedure: 09/21/24 Pre-Operative Diagnosis: Malfunction of forearm AV loop graft due to outflow vein obstruction Post-Operative Diagnosis: Same Surgery/Procedure Performed: Revision of AV graft with jump graft using cadaver femoral-popliteal artery to the brachial vein biological photographer: Yes Last Repairer: Shannan Bravo Tasks completed by events administrative assistant: Opening, Closing, Opening & closing, Hemostasis: Tie, Hemostasis: Electrocautery and Retracting Type of Anesthesia: Local and MAC RN Documented Start/Stop Times: Operation Date: 09/21/24 13:00 Case Time Into Pre-Op 09/21/24 11:29 Out of Pre-Op 09/21/24 13:51 Anesthesia Start 09/21/24 13:56 Into Room 09/21/24 13:56 Procedure Start 09/21/24 14:33 Procedure End 09/21/24 16:52 Anesthesia End 09/21/24 17:00 Out of Room 09/21/24 17:00 Into Recovery 09/21/24 17:03 Procedure Start Time: 14:33 Procedure Stop Time: 16:52 Select all DRAINS/GRAFTS/IMPLANTS that apply: Tissue Tissue details: Cadaver femoral-popliteal artery Estimated Blood Loss: 15 Specimen collected: No Description of surgery: HPI: Patient is a 74-year-old female end-stage renal disease currently with a forearm loop graft which has been functioning for dialysis. She has had increasing venous return pressures suggesting an outflow stenosis. She underwent a fistulogram which revealed intact graft and outflow vein of cephalic vein in the distal upper arm that occluded in the mid upper arm with a large collateral emptying into the brachial vein. She is taken now for revision to maintain patency of her forearm loop graft. Description of procedure: Upon obtaining form consent and verification correct patient procedure site patient was taken to the operating where she was positioned prepped and draped in usual sterile fashion. Timeout was performed and moderate sedation administered with anesthesia. Ultrasound was used to evaluate the cephalic vein just cephalad to the antecubital crease which was found to be of satisfactory caliber and patent. The brachial vein was of larger caliber in the mid upper arm at the site of confluence of a smaller brachial branch and the basilic vein as well as this large collateral branch. Skin at this location was marked and longitudinal orientation. Skin overlying each of these locations anesthetized with Marcaine and lidocaine. Transverse incision was made proximal to the antecubital crease and Bovie electrocautery was dissect down through subcutaneous tissue. Self-retaining retractor then put in position for dissection carried down to the cephalic vein fistula was identified. At this point sharp dissection was dissected free proximal distal and a writing was placed vessel loop. Next longitudinal incision was made over the brachial vein and Bovie electrocautery was dissect down through subcutaneous tissue and self-retaining retractors put in position. Further dissection was carried down above the fascia which was then incised and self-retaining retractor moved deeper into the wound. Once the neurovascular bundle was identified sharp dissection used to dissect free the brachial vein with care taken identify and protect the adjacent nerve and artery structures. A writing was placed Vesseloops proximal and distal and a tunneler was used to tunnel from the brachial incision to the antecubital incision. The patient was then heparinized allowed circulate for 3 minutes after which time the cephalic vein was occluded with a DeBakey clamp proximally and vessel distally. It was then transected with an anterior bevel outflow and oversewn with 6-0 Prolene in 2 layers. The clamp was then released with satisfactory stasis noted. Cadaver femoral-popliteal artery had been thawed per wafer polishing lead worker instructions. This was then beveled to match the caliber of the cephalic vein anastomosis performed end-to-end fashion and four-quadrant technique after completing the suture line was removed and satisfactory stasis noted with brisk flow through the cadaver and no significant sidebranch bleeding. The graft was then marked to maintain orientation and then secured to the tunneler and pulled through to the brachial vein incision. The graft was then reclamped and the brachial vein occluded with Vesseloops. A longitudinal venotomy was then created with an 11 blade extended with Bailey scissors. I then cut the length and beveled to match the size. Anastomosis then performed with a 6-0 Prolene in a running fashion. Prior to completing suture line vessels were backbled and after completing the suture line clamps removed with satisfactory stasis noted. There is a palpable thrill in the cadaver graft and outflow vein the prominent pulse within the pre-existing forearm graft was now more consistent with a thrill. Heparin was reversed with protamine and the incision inspected for hemostasis. Incision was then closed with 3-0 Vicryl followed by 4 Monocryl and Dermabond for the skin. The patient was then taken to the recovery room with anticipated discharge to home. Surgical Findings: Palpable thrill in the outflow vein, conversion from pulsatile to thrill in the pre-existing right forearm loop graft Complications Complications: No
--- NOTE | 2024-09-21 17:14 | PCM.POST.ANE ---
Anesthesia: Postop Eval I Current Vital Signs Temperature: 98.9 F Pulse Rate: 97 Blood Pressure: 100/60 Respiratory Rate: 18 Pulse Ox: 100 Oxygen Delivery Method: Simple Mask Oxygen Flow Rate (L/min): 6 Assessment Airway patent: Yes Spontaneous unlabored respirations: Yes Mental status: Awake and Calm nausea: No Vomiting: No Anesthesia Complication: No Fluid Hydration Crystalloid volume administer (ml): 120 Total IV fluid infused: 120 Progress Note Anesthesia document: Postop Eval 1 completed: Yes
--- NOTE | 2024-09-21 17:22 | PCM.POSTANE2 ---
Anesthesia Postop Eval I Sum Postop Eval Completion status Anesthesia document: Postop Eval 1 completed: Yes Anesthesia Postop Eval I Summary Anesthesia Postop Eval I Summary: Anesthesia Postop Eval I: Assessment Summary Airway patent Yes 09/21/24 17:15 [email or web address] Spontaneous unlabored Yes 09/21/24 17:15 [email or web address] respirations Mental status Awake,Calm 09/21/24 17:15 [email or web address] nausea No 09/21/24 17:15 [email or web address] Vomiting No 09/21/24 17:15 [email or web address] Anesthesia Postop Eval I: Fluid Summary Crystalloid volume administer 120 09/21/24 17:15 [email or web address] (ml) Colloids volume administered ( ml) Blood Product volume administered (ml) Total IV fluid infused 120 09/21/24 17:15 [email or web address] Anesthesia Postop Eval I: Summary Notes Anesthesia Complication No 09/21/24 17:15 [email or web address] Anesthesia Complication Comment: Post-operative progress note Anesthesia: Postop Eval II Evaluation Mental status: Awake Pain Level: 0 nausea: No Vomiting: No
== END 2024-09-21 18:48 | disposition home or self-care (01) ==
LOC: SDC 11:24 → AC 11:25
PROVIDERS: PCP Student in an Organized Health Care Education/Training Program; Referring Provider Surgery Trauma Surgery; Visit Provider Surgery Trauma Surgery
PROC: (CPT 36832; principal; 2024-09-21 12:45)
DX: T82.858A Stenosis of other vascular prosthetic devices, implants and grafts, initial encounter (principal); N18.6 End stage renal disease; E11.22 Type 2 diabetes mellitus with diabetic chronic kidney disease; X58.XXXA Exposure to other specified factors, initial encounter; Z95.0 Presence of cardiac pacemaker; Z99.2 Dependence on renal dialysis; Z90.49 Acquired absence of other specified parts of digestive tract; Z79.52 Long term (current) use of systemic steroids; Z79.899 Other long term (current) drug therapy; Z85.038 Personal history of other malignant neoplasm of large intestine; Z87.891 Personal history of nicotine dependence
CPT/HCPCS: 36832; 82962; A4648; A4216; J2405

== ENCOUNTER → 2024-10-11 | Outpatient (CLI) | payer MEDICARE, OTHER, SELFPAY ==
[2024-10-13 04:06] LABS: Carcinoembryonic Antigen 5.2 ng/mL (0.0-4.7)
== END | disposition home or self-care (01) ==
LOC: LAB 13:54
PROVIDERS: PCP Student in an Organized Health Care Education/Training Program; Referring Provider Internal Medicine Hematology & Oncology; Visit Provider Internal Medicine Hematology & Oncology
DX: C18.9 Malignant neoplasm of colon, unspecified (principal)
CPT/HCPCS: 36415; 82378

== ENCOUNTER → 2025-03-03 | Outpatient (CLI) | payer MEDICARE, OTHER, SELFPAY ==
--- NOTE | 2025-03-03 08:53 | VDUE_ITS ---
Reason For Study Reason For Study: Failed RUE AVF, evaluate for new creation Right Arm Left Arm Failed forearm AV loop graft noted extending up to Cephalic Vein at distal forearm measures 0.10 x 0.11 mid upper arm. cm. Proximal Basilic vein measures 0.24 x 0.23 cm. Cephalic Vein at mid forearm measures 0.10 x 0.12 cm. Mid Basilic vein measures 0.17 x 0.19 cm. Cephalic Vein proximal forearm measures 0.10 x 0.10 Distal Basilic vein measures 0.23 x 0.23 cm. cm. Brachial artery measures 0.40 x 0.39 cm with a Cephalic Vein distal upper arm measures 0.25 x 0.27 velocity of 52 cm/sec. cm. Cephalic Vein at mid upper arm measures 0.25 x 0.25 cm. Cephalic Vein at proximal upper arm measures 0.34 x 0.30 cm. Cephalic vein is tortuous in the upper arm. Proximal Basilic vein measures 0.42 x 0.42 cm. Mid Basilic vein measures 0.21 x 0.20 cm. Distal Basilic vein measures 0.31 x 0.32 cm. Brachial artery measures 0.35 x 0.31 cm with a velocity of 72.9 cm/sec. Radial artery measures 0.17 x 0.17 cm with a velocity of 31.9 cm/sec. Procedure This was a bilateral upper extremity venous doppler examination. Exam performed in department. VL/Dialysis Vein Map PRE-OP BILAT Interpretation Summary Bilateral upper extremity arteries patent with normal waveforms and measurement s above. Left upper extremity veins patent with measurements above. Failed prior right cephalic fistula. Ordering Physician: Yaritza Carpio Referring Physician: Khloe Pabon Performed By: Nikki Mccoy RVT ???
== END | disposition home or self-care (01) ==
PROVIDERS: PCP Student in an Organized Health Care Education/Training Program; Referring Provider Physician Assistant; Visit Provider Physician Assistant
DX: Z01.818 Encounter for other preprocedural examination (principal); N18.6 End stage renal disease; T82.898A Other specified complication of vascular prosthetic devices, implants and grafts, initial encounter; X58.XXXA Exposure to other specified factors, initial encounter
CPT/HCPCS: 93985

== ENCOUNTER 2025-04-28 17:24 | Observation (INO) | payer MEDICARE, OTHER, SELFPAY ==
[2025-04-19 11:13] LABS: Hematocrit 36.8 % (37-47); Hemoglobin 11.5 g/dL (12.0-15.0); Mean Corp Hgb Conc 31.3 g/dL (32-36); Mean Corpuscular Volume 101.1 fL (81-99); Mean Platelet Vol. 11.1 fl (6.2-12.0); Platelet Count 230 K/mm3 (150-450); RBC Distribution Width CV 14.5 % (11.6-14.6); RBC Distribution Width SD 53.8 fl (35.1-43.9); Red Blood Count 3.64 M/mm3 (4.2-5.4); White Blood Count 6.4 K/mm3 (4.4-11.0)
[2025-04-19 12:36] LABS: Anion Gap 15 (5-15); BUN 35 mg/dL (4-19); BUN/Creat Ratio 8.5 RATIO (10-20); Calcium,Total 8.9 mg/dL (7.6-11.0); Carbon Dioxide 25.1 mmol/L (21.0-32.0); Chloride 98 mmol/L (98-108); Glucose 103 mg/dL (70-99); Potassium 4.9 mmol/L (3.3-5.1)
--- NOTE | 2025-04-22 15:10 | PAT.ANESEVAL ---
Pre-Assessment Diagnosis/Proposed Procedure Planned Operative Procedure(s): (R) Right arm Arteriovenous graft Anesthesia History Anesthesia History - chief operator synthesis: Anesthesia History - chief operator synthesis Hx Hospitalization Yes: BLEED FROM [facility] 04/14/25 08:23 Any Problems With Anesthesia No: UNABLE TO LAY FLAT, PT 04/14/25 08:23 STAES WILL HAVE A HARD TIME W/START OF ANES Cholinesterase deficiency No 04/14/25 08:23 You/Your Family Experience No 04/14/25 08:23 fever (hyperthermia) with Relationship Recent Exposure to Contagious No 09/21/24 12:20 Disease Does patient have nerve No 04/14/25 08:23 stimulator Patient instructed to have device shut off --Does patient have Pacemaker or ICD? When Was Last Pacemaker Check 08/12/2024 09/15/24 10:48 QUESTION #4 FULL TEXT: You/Your Family Experience fever (hyperthermia) with Anesthesia Last Oral Intake Last Oral intake: Last Oral Intake NPO since Meds taken in AM with sips of water? Meds patient instructed to take am of surgery PONV PONV - chief operator synthesis: PONV - chief operator synthesis Female Yes 04/14/25 08:23 HX of Motion Sickness No 04/14/25 08:23 HX of N/V After Surgery No 04/14/25 08:23 Non-Smoker Yes 04/14/25 08:23 Duration of Surgery greater Yes 04/14/25 08:23 than 60 minutes Number of Risk Factors 3 04/14/25 08:23 PONV Score Moderate Risk 04/14/25 08:23 Height & Weight Height & Weight: Anesthesia: Height & Weight Height 5 ft 2 in 02/03/25 09:23 Respiratory Assessment Respiratory Assessment - chief operator synthesis: Respiratory Tract Infection Hx - chief operator synthesis Hx Respiratory Tract Infection No 04/14/25 08:23 STOP Sleep Apnea STOP Sleep Apnea - chief operator synthesis: STOP Sleep Apnea - chief operator synthesis Hx Hypertension Yes 04/14/25 08:23 Hx Sleep Apnea Yes 04/14/25 08:23 CPAP No 04/14/25 08:23 BIPAP Yes 04/14/25 08:23 Do you snore loudly (louder than talking or can be heard Do you often feel tired/ fatigued/ sleepy during daytime? Has anyone observed you stop breathing during sleep? STOP Results Positive 04/14/25 08:23 QUESTION #5 FULL TEXT : Do you snore loudly (louder than talking or can be heard through closed doors)? Tobacco Use History Tobacco Use History - chief operator synthesis: Tobacco Use History - chief operator synthesis Tobacco Use Smoking Status Former smoker 04/14/25 08:23 Hx Tobacco Use No 04/14/25 08:23 Years Smoking Packs Smoked per Day Smoking Cessation Date was No - quit smoking greater 04/14/25 08:23 within the last 15 years than 15 years ago Hx Smoking Cessation Date 03/13/85 04/14/25 08:23 Hx Smoking Cessation Counseling Hematologic Medial History Hematologic Hx - chief operator synthesis: Hematologic Medical Hx - hide shaker Hx of Blood Transfusion Yes 04/14/25 08:23 Hx of Transfusion in last 3 No 04/14/25 08:23 Months Date of Last Transfusion (if within last 3 months) Ever experience any problems No 04/14/25 08:23 with transfusion(s)? Specify any problems Hx of Preganancy in last 3 No 04/14/25 08:23 Months Nurse Filling Out Transfusion [facility] 04/14/25 08:23 & Questions: Date: 04/14/25 04/14/25 08:23 Time: 08:36 04/14/25 08:23 Patient unable to answer at this time (ie. confused, unrespo /Reproduction History /Reproductive History - chief operator synthesis: /Reproductive Hx- chief operator synthesis Hx Now No 04/14/25 08:23 Gestational Age (in weeks): EDC: Hx Hx Para Hx Section SAB No 04/14/25 08:23 [facility] Medical History (Updated 04/14/25 @ 08:35 by Khloe Bradley) History of Clostridium difficile infection Cancer Bruising Easy bruising Restless legs History of GI bleed On home oxygen therapy Hypertension History of pacemaker Heel spur Colon cancer Colonic mass ESRD (end stage renal disease) Hypercalcemia Wears glasses History of steroid therapy Walker as ambulation aid Diabetes History of renal dialysis History of renal disease Anemia Dietary restriction History of diverticulitis Former smoker BiPAP (biphasic positive airway pressure) dependence Sleep apnea Shortness of breath on exertion History of edema History of echocardiogram Cardiology follow-up encounter History of irregular heartbeat Restrictive lung disease Morbid obesity Pacemaker Heart disease Bone spur Low blood pressure Acute renal failure (ARF) Home Medications ?Medication ?Instructions ?Recorded ?Last Taken ?Type bisoprolol fumarate 5 mg tablet 2.5 mg PO MOWE BP 05/17/21 08/18/24 History brimonidine 0.1 % eye drops 1 drp RIGHT EYE BID glaucoma 05/31/21 08/19/24 History (Alphagan P) fluorometholone 0.1 % eye 1 drp EACH EYE QODAY eye drop 05/31/21 08/19/24 History drops,suspension pantoprazole 40 mg tablet,delayed 40 mg PO DAILY 30 days #0 tabs 07/02/24 08/19/24 Rx release midodrine 10 mg tablet 10 mg PO BID 08/20/24 08/20/24 History multivitamin (Daily-Francine tablet) 1 tab PO DAILY 08/20/24 08/19/24 History prednisone 2.5 mg tablet 10 mg PO QDAY 10/19/24 Unknown History colestipol 1 gram tablet 1 - 2 g PO DAILY PRN diarrhea 04/14/25 Unknown History lanthanum 1,000 mg chewable tablet 1,000 mg PO TID 04/14/25 Unknown History (Fosrenol) losartan 25 mg tablet 12.5 mg PO MOWEFRSA 04/14/25 Unknown History Allergy/AdvReac Type Severity Reaction Status Date / Time Tetracyclic Antidepressants Allergy Intermediate Other Verified 04/14/25 08:09 Tricyclic Antidepressants Allergy Intermediate Other Verified 04/14/25 08:09 and Tricy ibuprofen Allergy Mild PT UNSURE Verified 04/14/25 08:09 OF REACTION Phenylpiperazine Allergy NEEDS Verified 04/14/25 08:09 Antidepressant FOLLOW-UP apixaban (From Eliquis) AdvReac Severe bleeding Verified 04/14/25 08:09 Family History Father Diabetes Heart disease Mother Heart disease Surgical History (Updated 04/14/25 @ 08:35 by Khloe Bradley) History of implantable cardiac defibrillator (ICD) History of colonoscopy History of esophagogastroduodenoscopy (EGD) S/P right hemicolectomy History of arteriovenostomy for renal dialysis S/P cardiac pacemaker procedure S/P laparoscopic cholecystectomy Social History household members: spouse Smoking Status: Former smoker Tobacco: How many years used: 10 how long ago did patient quit smokin years alcohol intake: never Audit: Pertinent Findings Pertinent Findings EKG Perinent findings: 08/21/2024. Atrial sensed ventricular paced rhythm. 97 bpm. Recommendation Anesthesia Recommendation Anesthesia recommendation: OPTIMIZED for anesthesia
[2025-04-28] VITALS (18 sets, daily range): BP systolic 93–145; BP diastolic 39–79; PULSE 81–95; RESP 16–24; TEMP 35.8–36.7; O2SAT 95–100; BMI 38.8; BMI 39.4
[2025-04-28] MEDS: 0.9% Normal Saline (500mL Bag) 500 ML 15 ML IV (11:23)
--- NOTE | 2025-04-28 11:26 | PCM.PRE.AN2 ---
ASA Classification* ASA Classification ASA Classification: 3 Assessment & Plan Anesthesia* Anesthesia Assessment Anesthesia Assessment: Discussed sedation and/or anesthesia options, risks, benefits, and alternatives with patient/parents/legal guardian/POA. Questions invited. The patient/parents/legal guardian/POA seems to understand and agrees to proceed with anesthesia plan. Reviewed the physical assessment, medical history, allergy history and patient home medications list prior to surgery/procedure/anesthetic and documented any changes. Performed airway and anesthesia risk assessments. Anesthesia Type Anesthesia Type: General History Source History Obtained from:: Patient, Chart and Significant Other ( present) Anesthesia Focused Assessment* Temperature: 97.3 F Pulse Rate: 88 Blood Pressure: 145/68 Respiratory Rate: 18 Pulse Ox: 97 Oxygen Delivery Method: Room Air Airway Assessment Mouth opens: >3 cm Mallampati Score: II Teeth Condition: Chipped/Broken (Poor dentition missing tooth right upper front. Multiple teeth chipped.) Neck Range of motion (ROM): Limited ROM Labs Anesthesia Preop lab: CBC WBC 6.4 K/mm3 (4.4-11.0) 04/19/25 10:04/19/25 RBC 3.64 M/mm3 (4.2-5.4) L 04/19/25 10:04/19/25 Hgb 11.5 g/dL (12.0-15.0) L 04/19/25 10:32 04/19/25 Hct 36.8 % (37-47) L 04/19/25 10:32 04/19/25 Plt Count 230 K/mm3 (150-450) 04/19/25 10:04/19/25 CHEMISTRY Potassium 4.9 mmol/L (3.3-5.1) 04/19/25 10:32 04/19/25 Sodium 138 mmol/L (133-145) 04/19/25 10:32 04/19/25 Magnesium 1.9 mg/dL (1.6-2.6) 08/24/24 05:45 08/24/24 Phosphorus 4.5 mg/dL (2.5-4.9) 08/24/24 05:45 08/24/24 BUN 35 mg/dL (4-19) H 04/19/25 10:04/19/25 Creatinine 4.15 mg/dL (0.70-1.20) H 04/19/25 10:32 04/19/25 Glucose 103 mg/dL (70-99) H 04/19/25 10:32 04/19/25 POC Glucose 75 mg/dL (74-106) 09/21/24 11:56 09/21/24 TSH 1.440 uIU/mL (0.358-3.740) 08/21/24 04:00 08/21/24 COAG Pre-Assessment Diagnosis/Proposed Procedure Planned Operative Procedure(s): (R) Right arm Arteriovenous graft Anesthesia History Anesthesia History - directory carrier: Anesthesia History - directory carrier Hx Hospitalization Yes: BLEED FROM [facility] 04/14/25 08:23 Any Problems With Anesthesia No: UNABLE TO LAY FLAT, PT 04/14/25 08:23 STAES WILL HAVE A HARD TIME W/START OF ANES Cholinesterase deficiency No 04/14/25 08:23 You/Your Family Experience No 04/14/25 08:23 fever (hyperthermia) with Relationship Recent Exposure to Contagious No 04/28/25 10:49 Disease Does patient have nerve No 04/14/25 08:23 stimulator Patient instructed to have device shut off --Does patient have Pacemaker Yes 04/28/25 11:02 or ICD? When Was Last Pacemaker Check 08/12/2024 09/15/24 10:48 QUESTION #4 FULL TEXT: You/Your Family Experience fever (hyperthermia) with Anesthesia Last Oral Intake Last Oral intake: Last Oral Intake NPO since 22:00 04/28/25 11:02 Meds taken in AM with sips of No 04/28/25 11:02 water? Meds patient instructed to take am of surgery PONV PONV - directory carrier: PONV - directory carrier Female Yes 04/14/25 08:23 HX of Motion Sickness No 04/14/25 08:23 HX of N/V After Surgery No 04/14/25 08:23 Non-Smoker Yes 04/14/25 08:23 Duration of Surgery greater Yes 04/14/25 08:23 than 60 minutes Number of Risk Factors 3 04/14/25 08:23 PONV Score Moderate Risk 04/14/25 08:23 Height & Weight Height & Weight: Anesthesia: Height & Weight Height 5 ft 2 in 04/28/25 11:02 Weight: 96.343 kg 04/28/25 11:02 Body Mass Index (BMI) 38.8 04/28/25 11:02 Respiratory Assessment Respiratory Assessment - directory carrier: Respiratory Tract Infection Hx - directory carrier Hx Respiratory Tract Infection No 04/14/25 08:23 STOP Sleep Apnea STOP Sleep Apnea - directory carrier: STOP Sleep Apnea - directory carrier Hx Hypertension Yes 04/14/25 08:23 Hx Sleep Apnea Yes 04/14/25 08:23 CPAP No 04/14/25 08:23 BIPAP Yes 04/14/25 08:23 Do you snore loudly (louder than talking or can be heard Do you often feel tired/ fatigued/ sleepy during daytime? Has anyone observed you stop breathing during sleep? STOP Results Positive 04/14/25 08:23 QUESTION #5 FULL TEXT : Do you snore loudly (louder than talking or can be heard through closed doors)? 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 Specify any problems Hx of Preganancy in last 3 No 04/14/25 08:23 Months Nurse Filling Out Transfusion [facility] 04/14/25 08:23 & Questions: Date: 04/14/25 04/14/25 08:23 Time: 08:36 04/14/25 08:23 Patient unable to answer at this time (ie. confused, unrespo /Reproduction History /Reproductive History - directory carrier: /Reproductive Hx- directory carrier Hx Now No 04/14/25 08:23 Gestational Age (in weeks): EDC: Hx Hx Para Hx Section SAB No 04/14/25 08:23 Active Medications Active Medications: Current Medications Generic Name Dose Route Start Last Admin Trade Name Frekamilla PRN Reason Stop Dose Admin Cefazolin Sodium 2 gm/ Sodium 110 mls @ 200 mls/hr 04/28/25 12:00 Chloride IV 04/28/25 12:32 INTRAOP ONE Sodium Chloride 500 mls @ 0 mls/hr 04/28/25 11:30 04/28/25 11:23 IV 15 mls/hr .Q0M SIMONE Administration KVO [facility] Medical History (Updated 04/14/25 @ 08:35 by Khloe Bradley) History of Clostridium difficile infection Cancer Bruising Easy bruising Restless legs History of GI bleed On home oxygen therapy Hypertension History of pacemaker Heel spur Colon cancer Colonic mass ESRD (end stage renal disease) Hypercalcemia Wears glasses History of steroid therapy Walker as ambulation aid Diabetes History of renal dialysis History of renal disease Anemia Dietary restriction History of diverticulitis Former smoker BiPAP (biphasic positive airway pressure) dependence Sleep apnea Shortness of breath on exertion History of edema History of echocardiogram Cardiology follow-up encounter History of irregular heartbeat Restrictive lung disease Morbid obesity Pacemaker Heart disease Bone spur Low blood pressure Acute renal failure (ARF) Home Medications ?Medication ?Instructions ?Recorded ?Last Taken ?Type bisoprolol fumarate 5 mg tablet 2.5 mg PO MOWEFR BP 05/17/21 04/25/25 History brimonidine 0.1 % eye drops 1 drp RIGHT EYE BID glaucoma 05/31/21 04/26/25 History (Alphagan P) fluorometholone 0.1 % eye 1 drp EACH EYE QODAY eye drop 05/31/21 08/19/24 History drops,suspension pantoprazole 40 mg tablet,delayed 40 mg PO DAILY 30 days #0 tabs 07/02/24 04/26/25 Rx release midodrine 10 mg tablet 10 mg PO BID 08/20/24 04/27/25 History multivitamin (Daily-Francine tablet) 1 tab PO DAILY 08/20/24 04/27/25 History prednisone 2.5 mg tablet 10 mg PO QDAY 10/19/24 04/27/25 History colestipol 1 gram tablet 1 - 2 g PO DAILY PRN diarrhea 04/14/25 04/27/25 History lanthanum 1,000 mg chewable tablet 1,000 mg PO TID 04/14/25 04/27/25 History (Fosrenol) losartan 25 mg tablet 12.5 mg PO MOWEFRSA 04/14/25 Unknown History Allergy/AdvReac Type Severity Reaction Status Date / Time Tetracyclic Antidepressants Allergy Intermediate Other Verified 04/28/25 10:45 Tricyclic Antidepressants Allergy Intermediate Other Verified 04/28/25 10:45 and Tricy ibuprofen Allergy Mild PT UNSURE Verified 04/28/25 10:45 OF REACTION Phenylpiperazine Allergy NEEDS Verified 04/28/25 10:45 Antidepressant FOLLOW-UP apixaban (From Eliquis) AdvReac Severe bleeding Verified 04/28/25 10:45 Family History Father Diabetes Heart disease Mother Heart disease Surgical History (Updated 04/14/25 @ 08:35 by Khloe Bradley) History of implantable cardiac defibrillator (ICD) History of colonoscopy History of esophagogastroduodenoscopy (EGD) S/P right hemicolectomy History of arteriovenostomy for renal dialysis S/P cardiac pacemaker procedure S/P laparoscopic cholecystectomy Social History household members: spouse Smoking Status: Former smoker Tobacco: How many years used: 10 how long ago did patient quit smokin years alcohol intake: never Review of Systems (Anesthesia) ROS Narrative System reviewed and no additional complaints, except as documented.
--- NOTE | 2025-04-28 13:29 | PCM.HP.BLA ---
History and Physical Allergies Tetracyclic Antidepressants Allergy (Intermediate, Verified 04/07/25 14:02) OtherTricyclic Antidepressants and Tricy Allergy (Intermediate, Verified 04/07/25 14:02) Otheribuprofen Allergy (Mild, Verified 04/07/25 14:02) PT UNSURE OF REACTIONPhenylpiperazine Antidepressant Allergy (Verified 04/07/25 14:02) NEEDS FOLLOW-UPapixaban ([facility] Adverse Reaction (Severe, Verified 04/07/25 14:02) bleeding Medications ?Medication ?Instructions ?Recorded ?Confirmed ?Type bisoprolol fumarate 5 mg tablet 2.5 mg PO MOWEFRSA BP 05/17/21 02/18/25 History brimonidine 0.1 % eye drops 1 drp RIGHT EYE BID glaucoma 05/31/21 02/18/25 History (Alphagan P) fluorometholone 0.1 % eye 1 drp EACH EYE QODAY eye drop 05/31/21 02/18/25 History drops,suspension sucroferric oxyhydroxide 500 mg 500 mg PO TIDCM Kidneys 06/24/24 02/18/25 History chewable tablet (Velphoro) pantoprazole 40 mg tablet,delayed 40 mg PO DAILY 30 days #0 tabs 07/02/24 02/18/25 Rx release midodrine 10 mg tablet 10 mg PO BID 08/20/24 02/18/25 History multivitamin (Daily-Francine tablet) 1 tab PO DAILY 08/20/24 02/18/25 History prednisone 2.5 mg tablet 10 mg PO QDAY 10/19/24 02/18/25 History Is last menstrual period known: No Post menopausal: Yes Patient : No Have you fallen in the past year?: No PFSH Medical History Heel spur Colon cancer Colonic mass ESRD (end stage renal disease) Hypercalcemia Wears glasses History of steroid therapy Walker as ambulation aid Diabetes History of renal dialysis History of renal disease Anemia Dietary restriction History of diverticulitis Former smoker BiPAP (biphasic positive airway pressure) dependence Sleep apnea Shortness of breath on exertion History of edema History of echocardiogram Cardiology follow-up encounter History of irregular heartbeat Restrictive lung disease Morbid obesity Pacemaker Heart disease Bone spur Low blood pressure Acute renal failure (ARF) Surgical History History of colonoscopy History of esophagogastroduodenoscopy (EGD) S/P right hemicolectomy History of arteriovenostomy for renal dialysis S/P cardiac pacemaker procedure S/P laparoscopic cholecystectomy Family History Father Diabetes Heart diseaseMother Heart disease Social History household members: spouse Smoking Status: Former smoker Tobacco: How many years used: 10 how long ago did patient quit smokin years alcohol intake: never HPI HPI HPI: CLINTON COYLE, is a 74 F who presents to the office today for follow up discussion of dialysis access options. She had a prior right forearm loop graft that had worked for 3+ years though it did require jump graft revision with cadaver in late 2023. It had been working without issue until early January when it abruptly thrombosed and she was sent to [place] for declot. Unfortunately during that effort they apparently ruptured the venous outflow anastomosis causing a large hematoma, the graft was abandoned and a right IJ tunneled catheter placed. She has a prior left sided pacer/defibrillator. ROS General General: Yes fatigue, colon cancer and weakness; No weight change, appetite or breast cancer HEENT HEENT: No difficulty swallowing, eye injury, eye surgery, swollen glands or hoarseness Endo Endocrine: Yes diabetes mellitus and Hair loss; No thyroid disease, thyroid cancer, heat intolerance or cold intolerance Skin Skin: No rash or changing moles Musc Musculoskeletal: Yes arthritis; No back problems, rheumatoid arthritis, gout or joint pain Cardio Cardiovascular: Yes pacemaker, heart disease and atrial fibrillation; No murmur, high blood pressure, heart attack, heart stent, palpitations, shortness of breath with exertion or chest pain Psych Psychiatric: No depression, anxiety or hearing voices Resp Respiratory: No shortness of breath, Yes sleep apnea, Yes cough, No COPD, No asthma, No emphysema and No wheezing Gastro Gastrointestinal: No abdominal pain, No nausea or vomiting, No diarrhea, No constipation, No blood in stool, No acid reflux, No hemorrhoids, No ulcers, No gallbladder problem and Yes black,tarry stools Aldo Hematologic: No blood thinners, No blood disorders, No bleeding, No anemia and No blood clots Neuro Neurologic: No system reviewed and no additional complaints, except as documented, No as per HPI, No abnormal gait, No abnormal hearing, No abnormal movements, No abnormal speech, No behavioral changes, No burning sensations, No confusion, No convulsions, Yes disequilibrium, Yes dizziness, No localized weakness, No frequent falls, No headache(s), No lack of coordination, No loss of vision, No memory loss, No numbness, No other visual disturbances, No radicular pain, Yes restless legs, No sensory deficit, No syncope, No tingling, No tremor(s), Yes weakness and No other Exam Const General: cooperative, healthy appearing, comfortable, no acute distress and well developed Nutritional Appearance: well nourished Orientation: alert, awake and oriented x3 HENMT Head: normocephalic and atraumatic Ears: hearing grossly normal bilaterally Nose: external nose normal Eyes General: appearance normal, both eyes and all related structures EOM: EOM intact bilaterally Neck Neck: normal visual inspection, full ROM and trachea midline Resp Effort & Inspection: normal respiratory effort, able to speak in complete sentences, symmetric chest movement, no audible wheezes, not labored, no stridor and no use of accessory muscles Cardio Rate: regular rate Rhythm: regular rhythm Pulses: brachial pulses present and radial pulses present Skin General: no rashes or lesions noted and no erythema Wounds: no wounds Neuro Cranial Nerves: CN's II-XI intact bilaterally and EOM intact bilaterally Speech: speech normal Motor: strength 5/5 throughout Sensory Exam: no sensory deficits noted Psych Appearance: grossly normal and well kempt Mental Status: mental status grossly normal Mood: congruent mood Speech and Movement: speech and movement normal Thought Content: normal Judgment: judgment good Coding Level of Care Code Off vis,est,level 3 Diagnoses ESRD (end stage renal disease) N18.6 Assessment and Plan Assessment and Plan (1) ESRD (end stage renal disease): Status: Chronic Plan: -mapping confirms no [place] vein for fistula creation -will plan for right upper arm AV graft with cadaver -risks/benefits/alternatives discussed
--- NOTE | 2025-04-28 16:21 | PCM.OPRPT ---
Problems Associated Problem List Diagnoses (1) ESRD (end stage renal disease): Operative Report (Standard) Operative Information Date of Procedure: 04/28/25 Pre-Operative Diagnosis: ESRD Post-Operative Diagnosis: same Surgery/Procedure Performed: right arm AV graft bioinformatics scientist: Yes Field Service Manager: Arnol Rogers Tasks completed by painter assistant: Opening, Closing, Opening & closing and Retracting Type of Anesthesia: General RN Documented Start/Stop Times: Operation Date: 04/28/25 12:00 Case Time Into Pre-Op 04/28/25 10:44 Anesthesia Start 04/28/25 13:39 Into Room 04/28/25 13:39 Procedure Start 04/28/25 14:07 Procedure End 04/28/25 16:37 Anesthesia End 04/28/25 16:49 Out of Room 04/28/25 16:49 Into Recovery 04/28/25 16:50 Out of Recovery 04/28/25 18:16 Procedure Start Time: 14:05 Procedure Stop Time: 16:25 Select all DRAINS/GRAFTS/IMPLANTS that apply: Graft Graft details: cadaver femoral-popliteal artery Estimated Blood Loss: 10 Specimen collected: No Description of surgery: HPI: Patient is a 74-year-old female with end-stage renal disease currently on dialysis. She previously had a right forearm graft that had a prior revision as well as ultimate thrombosis and loss. She is taken now for upper arm graft placement. Description of procedure: Upon obtaining informed consent and verification correct patient procedure and site patient was taken to the operating where she was placed under general anesthesia. She was then positioned prepped and draped in usual sterile fashion and timeout is performed. Ultrasound was used to evaluate the brachial artery which was of satisfactory caliber with minimal atherosclerosis proximal to the antecubital crease. The brachial vein at the axilla was of satisfactory caliber and widely patent. Skin overlying the vessels was anesthetized with Marcaine and initial transverse incision made over the brachial artery. Bovie was then used to dissect through the subcutaneous tissue and septae and fracture put in position. Further dissection was carried down to the fascia which was then incised and retractors moved deeper in the wound. Sharp dissection was then used to dissect free the brachial artery proximal and distal with care taken to identify and protect adjacent nerve and vein structures. A writing was used to place a vessel loop and attention was turned to the brachial vein at the axilla. Longitudinal incision was made and Bovie was used to dissect down through subcutaneous tissue. Self-retaining retractors were then placed and further dissection carried down to the level of the fascia. The fascia was incised and self-retaining retractor move deeper in the wound. Once the brachial vein was identified sharp dissection was used dissect free proximal and distal with care taken to identify adjacent artery and nerve structures. Once an adequate length was dissected free writing was used to place a vascular proximal and distal. A tunnel was then created through the subcutaneous tissue on the anterior aspect of the arm from the axillary incision to the antecubital incision. The patient was then heparinized and let circulate for 3 minutes. Cadaver femoral-popliteal artery was then thawed manufactures instructions. This was then flushed and adequate hemostasis of the sidebranches observed. The brachial arteries and occluded with Vesseloops and longitudinal arteriotomy created with an 11 blade and extended with Bailey scissors. The cadaver graft was then beveled to match the arteriotomy and anastomosis performed using 6-0 Prolene in a running fashion. After completing the suture line clamps removed flushing of the graft and reestablishing flow to the hand. The graft was then inspected for hemostasis and there were sidebranches that required additional reinforcement with Prolene pursestring sutures were performed with a 6-0. The vein was then marked to maintain orientation it was secured to the tunneler and pulled through to the axillary incision. The brachial vein was then occluded with Vesseloops and longitudinal venotomy created with 11 bleeding send with Bailey scissors. The graft was then cut the length and beveled to match the venotomy and anastomosis performing a 6-0 Prolene in a running fashion. Prior to having a suture line the vessels are backbled and the graft flushed. After completing the suture line clamps removed and assessed factor hemostasis was noted. There is a palpable thrill in the graft and low resistance appropriate Doppler signal in the graft in the outflow vein. Heparin was then reversed with protamine and incisions closed with 3-0 Vicryl followed by 4 Monocryl and Dermabond for the skin. The patient was then taken to the recovery room with anticipated discharge to home. Surgical Findings: Biphasic radial signal, no augmentation with graft compression. Normal capillary refill. Complications Complications: No
--- NOTE | 2025-04-28 16:26 | DCINST_ITS ---
Discharge Instructions Diet Discharge Diet: No restrictions Activity Lifting Restrictions: do not lift > 20 lbs for 3 weeks with right arm Additional Activity Instructions:: do not submerge incisions for 3 weeks Dressing / Incision Call your doctor if your incision/area has: Sudden Increased Bleeding, Increased Pain/ Swelling, Increased Redness and Foul Smelling Discharge Call your doctor if you observe: Coldness, Increased Pain and Numbness or Tingling Remove Dressing in: 2 days Cleanse incision/area with: Soap & Water Follow Up Care Test Results: Test results from this visit will be discussed in further detail at your follow- up appointment, if applicable. Discharge Plan Admission Admit Date/Time: 04/28/25 17:24 Attending Provider: Joe Lutz Primary Care Provider: Khloe Pabon Consulting Providers: Ang Messina; Bhaskar Putnam Discharge Orders/Prescriptions Prescriptions: New oxycodone 5 mg tablet 5 mg PO Q8H PRN (Reason: pain) 2 Days Qty: 6 0RF Continued bisoprolol fumarate 5 mg tablet 2.5 mg PO MOWE Rx Instructions: 1/2 tab in the evening on dialysis days // and Friday prednisone 2.5 mg tablet 10 mg PO QDAY Patient Comments: PT USUALLY DOESN'T TAKE EVERYDAY-USUALLY 1-2X A WEEK fluorometholone 0.1 % drops,suspension 1 drp EACH EYE QODAY brimonidine [Alphagan P] 0.1 % drops 1 drp RIGHT EYE BID Patient Comments: instill ONE DROP IN THE RIGHT EYE TWICE DAILY lanthanum [Fosrenol] 1,000 mg tablet,chewable 1,000 mg PO TID Rx Instructions: administer with food; chew thoroughly before swallowing losartan 25 mg tablet 12.5 mg PO MOWESA colestipol 1 gram tablet 1 - 2 g PO DAILY PRN (Reason: diarrhea) pantoprazole 40 mg Tablet,Delayed Release (Dr/Ec) 40 mg PO DAILY 30 Days Qty: 0 0RF multivitamin [Daily-Francine] Tablet 1 tab PO DAILY midodrine 10 mg tablet 10 mg PO BID Rx Instructions: TAKE 1 TABLET PRIOR TO DIALYSIS Referrals / Follow Up: Khloe Pabon MD [Primary Care Provider] -
--- NOTE | 2025-04-28 16:53 | PCM.POST.ANE ---
Anesthesia: Postop Eval I Current Vital Signs Temperature: 97.5 F Pulse Rate: 91 Blood Pressure: 126/79 Respiratory Rate: 18 Pulse Ox: 98 Oxygen Delivery Method: Airvo Oxygen Flow Rate (L/min): 6 Assessment Airway patent: Yes Spontaneous unlabored respirations: Yes Mental status: Awake and Calm nausea: No Vomiting: No Anesthesia Complication: No Fluid Hydration Crystalloid volume administer (ml): 750 Total IV fluid infused: 750 Progress Note Anesthesia document: Postop Eval 1 completed: Yes
--- NOTE | 2025-04-28 17:30 | PCM.CONS.GEN ---
Assessment & Plan Assessment/Plan (1) Status post creation of arteriovenous fistula: PLAN: Plan Patient is a 74-year-old female who presented to [facility] on 04/28/2025 for planned right AV fistula placement. Medicine consulted postoperatively for medical management. 1. Status post right AV fistula placement; history of prior right AV fistula with iatrogenic rupture and subsequent hematoma ? Vascular surgery primary. S/p right AV fistula placement with Dr. Lutz on 04/28. Tolerated procedure well, no intraoperative complications noted. 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 Hospitalized after fistula placement due to high risk status. Further management per vascular surgery. 2. ESRD on HD ? Nephrology consulted. On HD Friday. Planning for HD through tunneled catheter tomorrow. 3. Class II obesity with LAYLA ? BMI 39 on admit. Complicates hospital course and care. Continue home BiPAP at night. 4. GERD ? Stable. Continue home PPI. 5. History of colon cancer s/p right hemicolectomy ? Follows with oncology. Had right hemicolectomy done here in June 2024. On surveillance now, not on active therapy. No inpatient needs, continue outpatient follow-up. 6. Paroxysmal A-fib not on anticoagulation due to history of lower GI bleed on Eliquis, hypertension ? In normal sinus rhythm postoperatively. Monitor cardiac telemetry. Continue home losartan. DVT prophylaxis: Heparin subcu per vascular surgery Total clinical time spent by myself addressing the patient's medical issues, reviewing all the data, and collaborating with patient's care team: 50 minutes. HPI Consult Data Date of Consult: 04/28/25 HPI Narrative Reason for Consultation: Postoperative medical management HPI Narrative: CLINTON COYLE, is a 74 F who presented to [facility] on 04/28/2025 for planned right arm AV fistula placement. Medicine consulted postoperatively for medical management. Patient's medical history is significant for ESRD on HD, colon cancer s/p right hemicolectomy, paroxysmal A-fib not on anticoagulation due to history of lower GI bleed on Eliquis, conduction system disorder s/p pacemaker placement, and GERD. Patient has been on dialysis for over 4 years. Her prior right forearm loop graft had worked for 3+ years but then in early January it abruptly thrombosed and she was sent to [place] for declotting. Unfortunately during the day for the apparently ruptured the venous outflow anastomosis causing a large hematoma, so the graft was abandoned and a right IJ tunneled catheter was placed. She has been receiving dialysis through this tunneled catheter since then. She came today for planned right arm AV fistula placement with Dr. Lutz. Tolerated procedure well, no intraoperative complications noted. Patient was hospitalized postoperatively due to her high risk status. I saw the patient at bedside in PCU shortly after she arrived here from PACU. She was sitting back comfortably in bed and in no acute distress. was present at bedside. She reported mild pain in the right forearm area but otherwise denied any acute issues currently. [facility] Medical History (Updated 04/14/25 @ 08:35 by Khloe Bradley) History of Clostridium difficile infection Cancer Bruising Easy bruising Restless legs History of GI bleed On home oxygen therapy Hypertension History of pacemaker Heel spur Colon cancer Colonic mass ESRD (end stage renal disease) Hypercalcemia Wears glasses History of steroid therapy Walker as ambulation aid Diabetes History of renal dialysis History of renal disease Anemia Dietary restriction History of diverticulitis Former smoker BiPAP (biphasic positive airway pressure) dependence Sleep apnea Shortness of breath on exertion History of edema History of echocardiogram Cardiology follow-up encounter History of irregular heartbeat Restrictive lung disease Morbid obesity Pacemaker Heart disease Bone spur Low blood pressure Acute renal failure (ARF) Home Medications ?Medication ?Instructions ?Recorded ?Last Taken ?Type bisoprolol fumarate 5 mg tablet 2.5 mg PO MOWEFR BP 05/17/21 04/25/25 History brimonidine 0.1 % eye drops 1 drp RIGHT EYE BID glaucoma 05/31/21 04/26/25 History (Alphagan P) fluorometholone 0.1 % eye 1 drp EACH EYE QODAY eye drop 05/31/21 08/19/24 History drops,suspension pantoprazole 40 mg tablet,delayed 40 mg PO DAILY 30 days #0 tabs 07/02/24 04/26/25 Rx release midodrine 10 mg tablet 10 mg PO BID 08/20/24 04/27/25 History multivitamin (Daily-Francine tablet) 1 tab PO DAILY 08/20/24 04/27/25 History prednisone 2.5 mg tablet 10 mg PO QDAY 10/19/24 04/27/25 History colestipol 1 gram tablet 1 - 2 g PO DAILY PRN diarrhea 04/14/25 04/27/25 History lanthanum 1,000 mg chewable tablet 1,000 mg PO TID 04/14/25 04/27/25 History (Fosrenol) losartan 25 mg tablet 12.5 mg PO MOWEFRSA 04/14/25 Unknown History oxycodone 5 mg tablet 5 mg PO Q8H PRN pain 2 days #6 tabs 04/28/25 Unknown Rx Allergy/AdvReac Type Severity Reaction Status Date / Time Tetracyclic Antidepressants Allergy Intermediate Other Verified 04/28/25 10:45 Tricyclic Antidepressants Allergy Intermediate Other Verified 04/28/25 10:45 and Tricy ibuprofen Allergy Mild PT UNSURE Verified 04/28/25 10:45 OF REACTION Phenylpiperazine Allergy NEEDS Verified 04/28/25 10:45 Antidepressant FOLLOW-UP apixaban (From Eliquis) AdvReac Severe bleeding Verified 04/28/25 10:45 Family History Father Diabetes Heart disease Mother Heart disease Surgical History (Updated 04/28/25 @ 19:[address] Ang Messina DO) History of implantable cardiac defibrillator (ICD) History of colonoscopy History of esophagogastroduodenoscopy (EGD) S/P right hemicolectomy History of arteriovenostomy for renal dialysis S/P cardiac pacemaker procedure S/P laparoscopic cholecystectomy Social History household members: spouse Smoking Status: Former smoker Tobacco: How many years used: 10 how long ago did patient quit smokin years alcohol intake: never ROS Constitutional Constitutional: Reports fatigue; Denies chills, fever(s) or weakness Eyes Eyes: Denies change in vision Cardiovascular Cardiovascular: Denies chest pain Respiratory/Chest Respiratory/Chest: Denies shortness of breath at rest Gastrointestinal Gastrointestinal: Denies abdominal pain Musculoskeletal Musculoskeletal: Denies arthralgias or myalgias Physical Exam Const alert, oriented x3 and no apparent distress Constitutional Narrative: Elderly female, class II obesity, mildly fatigued and chronically ill-appearing, otherwise sitting back comfortably in bed, conversing normally, in no acute distress. General Appearance: cooperative and comfortable HEENT normocephalic, head/scalp atraumatic, hearing grossly normal bilaterally, nasal mucous membranes and turbinates normal and moist oral mucous membranes Eyes PERRL, EOMs intact bilaterally and conjunctivae normal Neck full ROM Chest inspection of chest normal Resp normal respiratory effort, normal air movement, no use of accessory muscles and clear to auscultation bilaterally Cardio regular rate, regular rhythm, no murmurs and peripheral pulses 2+ throughout GI normal to inspection, nondistended, normoactive bowel sounds, soft to palpation, non-tender and non-distended Back/Spine normal ROM Extremity Extremity Narrative: Right forearm fistula in place. Site appears clean and dry. Skin no rashes or lesions noted Psych mental status grossly normal Lab / Micro Data 04/19/25 10:32 04/19/25 10:32 Labs: Laboratory Results - last 24 hr 04/28/25 10:50: POC Glucose 92 Charges/Coding Visit Charges Inpatient E&M: 45177 Subs Hosp L3
--- NOTE | 2025-04-28 18:16 | PCM.POSTANE2 ---
Anesthesia Postop Eval I Sum Postop Eval Completion status Anesthesia document: Postop Eval 1 completed: Yes Anesthesia Postop Eval I Summary Anesthesia Postop Eval I Summary: Anesthesia Postop Eval I: Assessment Summary Airway patent Yes 04/28/25 16:54 DRUG ABUSE RESISTANCE EDUCATION OFFICER.[email or web address] Spontaneous unlabored Yes 04/28/25 16:54 DRUG ABUSE RESISTANCE EDUCATION OFFICER.JBOR respirations Mental status Awake,Calm 04/28/25 16:54 DRUG ABUSE RESISTANCE EDUCATION OFFICER.JBOR nausea No 04/28/25 16:54 DRUG ABUSE RESISTANCE EDUCATION OFFICER.JBOR Vomiting No 04/28/25 16:54 DRUG ABUSE RESISTANCE EDUCATION OFFICER.JBOR Anesthesia Postop Eval I: Fluid Summary Crystalloid volume administer 750 04/28/25 16:54 DRUG ABUSE RESISTANCE EDUCATION OFFICER.JBOR (ml) Colloids volume administered ( ml) Blood Product volume administered (ml) Total IV fluid infused 750 04/28/25 16:54 DRUG ABUSE RESISTANCE EDUCATION OFFICER.JBOR Anesthesia Postop Eval I: Summary Notes Anesthesia Complication No 04/28/25 16:54 DRUG ABUSE RESISTANCE EDUCATION OFFICER.JBOR Anesthesia Complication Comment: Post-operative progress note Anesthesia: Postop Eval II Evaluation Mental status: Awake and Calm Pain Level: 1 nausea: No Vomiting: No Progress Note Post-operative progress note: In PACU the patient required an nasal cannula O2 2 to 4 L/min. Baseline home oxygen every night. Baseline BiPAP at home at night. In PACU tachypneic respiratory rate 20 to 24/min. I spoke with the surgeon and mutual agreement was to keep the patient overnight on the observation unit. Using BiPAP in the hospital to help with respiratory status. The patient is calm speaking full sentences and states that this is her baseline. The patient will be staying in the hospital overnight. Complications Anesthesia Complication: No
[2025-04-29] VITALS (13 sets, daily range): BP systolic 102–117; BP diastolic 49–68; PULSE 65–74; RESP 14–18; TEMP 36–36.7; O2SAT 86–100; BMI 40.1; BMI 39.0
[2025-04-29 06:49] LABS: Anion Gap 11 (5-15); BUN 34 mg/dL (4-19); BUN/Creat Ratio 7.9 RATIO (10-20); Calcium,Total 8.8 mg/dL (7.6-11.0); Carbon Dioxide 27.7 mmol/L (21.0-32.0); Chloride 100 mmol/L (98-108); Estimated Creatinine Clearance 12.58 ml/min (50-250); Glucose 98 mg/dL (70-99); Potassium 5.7 mmol/L (3.3-5.1)
--- NOTE | 2025-04-29 07:03 | PN.HOSP_ITS ---
Subjective Subjective Patient with no acute events overnight per self and per nursing report. She notes that initially her right upper extremity was significantly sore following vascular interventions but has improved and aches some but doing better. She notes there is no significant swelling to the right upper extremity. She does note the dressing seems to be coming off intermittently. Discussed plan of care which included plan dialysis prior to likely discharge per primary service with BMP with mild hyperkalemia with 5.7 noted however plan dialysis. Patient denies fevers, chills, nausea, emesis, abdominal pain, chest pain or dyspnea. Objective Data Objective Data Vital Signs: Vital Signs Temp Pulse Resp BP Pulse Ox O2 Del Method O2 Flow Rate 96.8 F L 74 18 107/57 L 96 Nasal Cannula 3 04/29/25 03:36 04/29/25 03:36 04/29/25 03:36 04/29/25 03:36 04/29/25 03:36 04/29/25 05:15 04/29/25 05:15 Oxygen Flow Rate (L/min) 3 Oxygen Delivery Method Nasal Cannula Weight: 215 lb 9.793 oz Body Mass Index (BMI) 39.4 Intake & Output: Intake and Output for Last 24 Hours 04/27/25 04/28/25 04/29/25 23:59 23:59 23:59 Intake Total 218.5 / 218.5 Balance 218.5 / 218.5 Lab / Micro Data 04/19/25 10:32 04/29/25 05:55 Labs: Laboratory Results - last 24 hr 04/28/25 10:50: POC Glucose 92 04/28/25 17:58: POC Glucose 93 04/29/25 05:55: Sodium 138, Potassium 5.7 H, Chloride 100, Carbon Dioxide 27.7, Anion Gap 11, BUN 34 H, Creatinine 4.35 H, Estim Creat Clear Calc 12.58 L, Est GFR (MDRD) Non-Af 10 L, BUN/Creatinine Ratio 7.9 L, Glucose 98, Calcium 8.8 Physical Exam Narrative Physical Examination: General: Awake, alert, oriented x 3 and cooperative, seated upright in the PCU bed, no acute distress, notes right upper extremity feeling improved. Skin: Normal color, normal turgor, no icterus, no cyanosis except for occasional stage ecchymoses, abrasion, especially right upper extremity status post OR with notable ecchymotic change, dressing in place with no drainage per vascular surgery. HEENT: AT/NC, EOMI, PERRLA, MMM. Lungs: Mildly diminished, greater bases, appropriate effort, no rales, ronchi or wheezing. Heart: Regular rate and rhythm; no gallop, rub audible. Abdomen: Soft, NTTP, ND, normal BS. Extremities: No cyanosis, no clubbing, no significant pitting edema, right upper extremity status post dialysis access intervention per vascular surgery with peripheral pulse intact, moving hand without issue, no significant edema to the hands, sensation intact. Neurological: Patient awake, alert, oriented as noted, cognitive function intact; pupils equally reactive to light and accommodation, cranial nerves grossly normal, moving all 4 extremities, no focal deficits, strength mildly global decreased Psychiatric: Affect appears fatigued otherwise normal, no acute evidence of depressive or anxiety feelings. Assessment & Plan Assessment/Plan (1) Status post creation of arteriovenous fistula: PLAN: Plan The patient is a 74-year-old female with past medical history ESRD on HD, obesity, GERD, history of colon cancer status post right hemicolectomy considered in in remission, PAF not chronically anticoagulated secondary to history of recurrent GI bleed, hypertension, hyperlipidemia who presented to the [facility] ED on 04/28/2025 per vascular surgery for planned right AV fistula placement. #1. ESRD status post R AVF creation: Admitted following operative intervention to the PCU per vascular surgery service, surgical site and care per vascular surgery with no acute events overnight, plan for HD 04/29/2025 and following this clear from the medical service standpoint for discharge to home with recommended follow-up as previously arranged with nephrology for ongoing dialysis needs, follow-up with vascular surgery per their service discretion. #2. History colon cancer: Status post previous right hemicolectomy 06/2024, considered in remission, encouraged continued follow-up with oncology as previously arranged. #3. Hypertension: Continue home regimen including bisoprolol, losartan with hold parameters as needed, PRN hydralazine. Midodrine with dialysis. #4. Hyperlipidemia: Per current list on a regimen, defer to outpatient. #5. Chronic anemia, macrocytic/anemia of chronic disease: Most recent hemoglobin noted 04/19/2025 with hemoglobin 11.5, MCV one 1.1, baseline hemoglobin appears previous to this primarily 7-9 range, encouraged repeat CBC per primary service discretion but no obvious evidence of bleeding intraoperatively or postoperatively. #6. PAF: Will continue patient on bisoprolol regimen, not chronically anticoagulated secondary to previous GI bleed history. #7. Obesity: Weight loss and lifestyle changes encouraged. #8. GERD with history of previous GI bleed: Continue patient on PPI. #9. DVT prophylaxis: Heparin chemoprophylaxis per surgery service discretion. Charges/Coding Visit Charges Inpatient E&M: 15213 Subs Hosp L2
--- NOTE | 2025-04-29 08:36 | PCM.PN.SRG ---
Subjective Subjective I saw Cindy this morning resting comfortably in bed. She had no particular complaints. She reports the numbness/pain she had in her R hand yesterday has resolved; she has some soreness in the arm around the incision site. She is on 2 lpm of O2 via NC this morning; at home she only uses O2/Bipap at night. Objective Data Objective Data Vital Signs: Vital Signs Temp Pulse Resp BP Pulse Ox O2 Del Method O2 Flow Rate 96.8 F L 74 18 107/57 L 99 Nasal Cannula 3 04/29/25 03:36 04/29/25 03:36 04/29/25 03:36 04/29/25 03:36 04/29/25 07:50 04/29/25 07:50 04/29/25 07:50 Oxygen Flow Rate (L/min) 3 Oxygen Delivery Method Nasal Cannula Weight: 215 lb 9.793 oz Body Mass Index (BMI) 39.4 Intake & Output: Intake and Output for Last 24 Hours 04/27/25 04/28/25 04/29/25 23:59 23:59 23:59 Intake Total 218.5 / 218.5 Balance 218.5 / 218.5 Lab / Micro Data 04/19/25 10:32 04/29/25 05:55 Labs: Laboratory Results - last 24 hr 04/28/25 10:50: POC Glucose 92 04/28/25 17:58: POC Glucose 93 04/29/25 05:55: Sodium 138, Potassium 5.7 H, Chloride 100, Carbon Dioxide 27.7, Anion Gap 11, BUN 34 H, Creatinine 4.35 H, Estim Creat Clear Calc 12.58 L, Est GFR (MDRD) Non-Af 10 L, BUN/Creatinine Ratio 7.9 L, Glucose 98, Calcium 8.8 Physical Exam Const alert, oriented x3 and no apparent distress General Appearance: cooperative and comfortable HEENT normocephalic, hearing grossly normal bilaterally, external ears normal and external nose normal Eyes EOMs intact bilaterally General Eye: normal appearance of both eyes Neck General: normal visual inspection and trachea midline Resp normal respiratory effort Effort and Inspection: able to speak in complete sentences; Negative for labored, grunting or stridor Cardio regular rate and regular rhythm Extremity Extremity Narrative: RUE incision site satisfactory in appearance; no dehiscence/drainage. There is expected swelling and ecchymosis. Palpable thrill through the graft. R radial pulse palpable though diminished (stable from preop exams), capillary refill, R fingers are warm. Skin no rashes or lesions noted Neuro moves all extremities, no focal motor deficits and no sensory deficits noted Speech: speech normal Psych mental status grossly normal Appearance: grossly normal Attitude: calm and engaged Activity / Motor Behavior: appropriate eye contact Speech: normal speech Mood & Affect: euthymic mood Assessment & Plan Assessment/Plan (1) Status post creation of arteriovenous fistula: PLAN: Her O2 requirement is much improved this morning, plan to continue to wean as able. Incision site is satisfactory in appearance, there is good thrill through the course of the graft. Plan is for dialysis this morning and then discharge to home afterward as long as she remains otherwise medically stable. Appreciate hospitalist and nephrology assistance. Charges/Coding Procedures Integumentary [id number]: [id number] Global Visit
[2025-04-29] MEDS: 0.9% Normal Saline 1,000 ML IV.SOLN. 1000 ML OPERA.SITE (08:56)
[2025-04-29] MEDS: PureFlow B 2K Dialysis Soln 1 BAG 6 BAG PF (08:57)
[2025-04-29] MEDS: 0.9% Saline Lock 10 ML Syringe IV (08:57)
--- NOTE | 2025-04-29 13:09 | PCM.DC.SUM ---
Providers Date of Admission: 04/28/25 Primary Care Physician: Khloe Pabon MD Consultations 04/28/25 18:29 Consult: Hospitalist Routine Consulting Provider: Ang Messina Reason for Consult: medical management EMERGENT Consult: No Notified: Yes Date Notified: 04/28/25 Time Notified: 17:30 Method of Notification: Verbal Consult: Nephrology Routine Consulting Provider: Bhaskar Putnam Reason for Consult: dialysis needs EMERGENT Consult: No Notified: Yes Date Notified: 04/28/25 Time Notified: 18:45 Method of Notification: Answering Service Reason For Visit: Right arm Arteriovenous graft Diagnosis Discharge Diagnosis (1) Status post creation of arteriovenous fistula: Status: Acute Code(s): Z98.890 - Other specified postprocedural states Plan: Her O2 requirement is much improved this morning, plan to continue to wean as able. Incision site is satisfactory in appearance, there is good thrill through the course of the graft. Plan is for dialysis this morning and then discharge to home afterward as long as she remains otherwise medically stable. Appreciate hospitalist and nephrology assistance. Medications at Discharge Home Medications bisoprolol fumarate 5 mg tablet 2.5 mg PO MOWEFRSA BP 05/17/21 brimonidine 0.1 % eye drops (Alphagan P) 1 drp RIGHT EYE BID glaucoma 05/31/21 fluorometholone 0.1 % eye drops,suspension 1 drp EACH EYE QODAY eye drop 05/31/21 pantoprazole 40 mg tablet,delayed release 40 mg PO DAILY 30 days #0 tabs 07/02/24 midodrine 10 mg tablet 10 mg PO BID 08/20/24 multivitamin (Daily-Francine tablet) 1 tab PO DAILY 08/20/24 prednisone 2.5 mg tablet 10 mg PO QDAY 10/19/24 colestipol 1 gram tablet 1 - 2 g PO DAILY PRN diarrhea 04/14/25 lanthanum 1,000 mg chewable tablet (Fosrenol) 1,000 mg PO TID 04/14/25 losartan 25 mg tablet 12.5 mg PO MOWEFRSA 04/14/25 oxycodone 5 mg tablet 5 mg PO Q8H PRN pain 2 days #6 tabs 04/28/25 Hospital Course Operations - (RUE AV graft creation) Summary of Care Provided Hospital Course: Cindy Heaton is a 74 y/o female who underwent planned RUE AV Graft Creation on 04/28/2025. The procedure was without complication and she tolerated it well; however, she was slow to wean off of O2 support in PACU and so was admitted for observation overnight in the PCU. She is on bipap at home overnight and was here as well; this morning she was weaned to room air and has been saturating well. She had dialysis here this morning which went well. Her incision site is satisfactory in appearance. She is medically stable for discharge home today. Physical Exam Const alert, oriented x3 and no apparent distress General Appearance: cooperative and comfortable HEENT normocephalic, hearing grossly normal bilaterally, external ears normal and external nose normal Eyes EOMs intact bilaterally General Eye: normal appearance of both eyes Neck General: normal visual inspection and trachea midline Resp normal respiratory effort Effort and Inspection: able to speak in complete sentences; Negative for labored, grunting or stridor Cardio regular rate and regular rhythm Extremity Extremity Narrative: RUE incision site satisfactory in appearance; no dehiscence/drainage. There is expected swelling and ecchymosis. Palpable thrill through the graft. R radial pulse palpable though diminished (stable from preop exams), capillary refill, R fingers are warm. Skin no rashes or lesions noted Neuro moves all extremities, no focal motor deficits and no sensory deficits noted Speech: speech normal Psych mental status grossly normal Appearance: grossly normal Attitude: calm and engaged Activity / Motor Behavior: appropriate eye contact Speech: normal speech Mood & Affect: euthymic mood Weight / BMI Weight Weight: 212 lb 4.882 oz Body Mass Index (BMI) 39.0 ABG / Lab / Microbiology Data 04/19/25 10:32 04/29/25 05:55 Laboratory: Laboratory Results - last 24 hr 04/28/25 17:58: POC Glucose 93 04/29/25 05:55: Sodium 138, Potassium 5.7 H, Chloride 100, Carbon Dioxide 27.7, Anion Gap 11, BUN 34 H, Creatinine 4.35 H, Estim Creat Clear Calc 12.58 L, Est GFR (MDRD) Non-Af 10 L, BUN/Creatinine Ratio 7.9 L, Glucose 98, Calcium 8.8 D/C Instructions Lifting Restrictions: do not lift > 20 lbs for 3 weeks with right arm Additional Activity Instructions: do not submerge incisions for 3 weeks Call your doctor if your incision/area has: Sudden Increased Bleeding, Increased Pain/ Swelling, Increased Redness and Foul Smelling Discharge Call your doctor if you observe: Coldness, Increased Pain and Numbness or Tingling Remove Dressing in: 2 days Cleanse incision/area with: Soap & Water DC O2, CPAP, BIPAP Needs Home O2 Discharge instructions: No Please Follow Up With: Yaritza Carpio PA When: 05/12/25 Meaningful Use Info Meaningful Use Meaningful Use Diagnoses (Choose all that apply): None applicable Discharge Plan Admission Admit Date/Time: 04/28/25 17:24 Attending Provider: Joe Lutz Primary Care Provider: Khloe Pabon Consulting Providers: Bhaskar Putnam; Isabela Ayala Discharge Orders/Prescriptions Prescriptions: New oxycodone 5 mg tablet 5 mg PO Q8H PRN (Reason: pain) 2 Days Qty: 6 0RF Continued bisoprolol fumarate 5 mg tablet 2.5 mg PO MOWEFRSA Rx Instructions: 1/2 tab in the evening on dialysis days and Friday prednisone 2.5 mg tablet 10 mg PO QDAY Patient Comments: PT USUALLY DOESN'T TAKE EVERYDAY-USUALLY 1-2X A WEEK fluorometholone 0.1 % drops,suspension 1 drp EACH EYE QODAY brimonidine [Alphagan P] 0.1 % drops 1 drp RIGHT EYE BID Patient Comments: instill ONE DROP IN THE RIGHT EYE TWICE DAILY lanthanum [Fosrenol] 1,000 mg tablet,chewable 1,000 mg PO TID Rx Instructions: administer with food; chew thoroughly before swallowing losartan 25 mg tablet 12.5 mg PO colestipol 1 gram tablet 1 - 2 g PO DAILY PRN (Reason: diarrhea) pantoprazole 40 mg Tablet,Delayed Release (Dr/Ec) 40 mg PO DAILY 30 Days Qty: 0 0RF multivitamin [Daily-Francine] Tablet 1 tab PO DAILY midodrine 10 mg tablet 10 mg PO BID Rx Instructions: TAKE 1 TABLET PRIOR TO DIALYSIS Referrals / Follow Up: Khloe Pabon MD [Primary Care Provider] - Disposition Disposition (needs filled in before D/C Order can be placed): Home, Self Care
--- NOTE | 2025-04-29 14:46 | NURSING ---
Pt on 3L O2 at night. On room air she is at 86%, ambulation at 89%. Pt had surgery this visit and believes she is still influenced by the aesthetics of surgery. Pt refuses home O2 today.
--- NOTE | 2025-04-29 15:12 | CASEMGMT ---
Patient has order for at discharge. Patient has order for home oxygen at 3lpm continuously through [place]. Patient does not have portable tank for at discharge. Kelley is declining portable oxygen at [facility] and will use her concentrator when she gets home. at bedside and declines portable oxygen as well. Patient and decline further needs or concerns at discharge.
--- NOTE | 2025-04-29 18:31 | CON.PCM.RE_ITS ---
Assessment & Plan Assessment/Plan (1) ESRD (end stage renal disease): PLAN: HD today. seen on HD. see orders. will plan for 4 hours. usual run is 3.5 hours. UF as tolerated. dw staff. possible dc after HD HPI Consult Data Date of Consult: 04/29/25 HPI Narrative Reason for Consultation: ESRD HPI Narrative: CLINTON COYLE, is a 74 F who presents tohospital for AVG placement. renal consulted for ESRD. on HD MWF schedule. 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 [facility] Medical History (Updated 04/14/25 @ 08:35 by Khloe Bradley) History of Clostridium difficile infection Cancer Bruising Easy bruising Restless legs History of GI bleed On home oxygen therapy Hypertension History of pacemaker Heel spur Colon cancer Colonic mass ESRD (end stage renal disease) Hypercalcemia Wears glasses History of steroid therapy Walker as ambulation aid Diabetes History of renal dialysis History of renal disease Anemia Dietary restriction History of diverticulitis Former smoker BiPAP (biphasic positive airway pressure) dependence Sleep apnea Shortness of breath on exertion History of edema History of echocardiogram Cardiology follow-up encounter History of irregular heartbeat Restrictive lung disease Morbid obesity Pacemaker Heart disease Bone spur Low blood pressure Acute renal failure (ARF) Home Medications ?Medication ?Instructions ?Recorded ?Last Taken ?Type bisoprolol fumarate 5 mg tablet 2.5 mg PO MOWEFRSA BP 05/17/21 04/25/25 History brimonidine 0.1 % eye drops 1 drp RIGHT EYE BID glauco ma 05/31/21 04/26/25 History (Alphagan P) fluorometholone 0.1 % eye 1 drp EACH EYE QODAY eye victorina p 05/31/21 08/19/24 History drops,suspension pantoprazole 40 mg tablet,delayed 40 mg PO DAILY reflu x 30 days #0 07/02/24 04/26/25 Rx release tabs midodrine 10 mg tablet 10 mg PO BID blood pressure 08/20/24 04/27/25 History multivitamin (Daily-Francine tablet) 1 tab PO DAILY vitami n 08/20/24 04/27/25 History prednisone 2.5 mg tablet 10 mg PO QDAY inflammation 0 10/19/24 04/27/25 History colestipol 1 gram tablet 1 - 2 g PO DAILY PRN diarrhe a 04/14/25 04/27/25 History lanthanum 1,000 mg chewable tablet 1,000 mg PO TID ruben sphate 04/14/25 04/27/25 History (Fosrenol) losartan 25 mg tablet 12.5 mg PO MOWEFRSA blood pr essure 04/14/25 Unknown History oxycodone 5 mg tablet 5 mg PO Q8H PRN pain 2 days #6 tabs 04/28/25 Unknown Rx Allergy/AdvReac Type Severity Reaction Status Date / Time Tetracyclic Antidepressants Allergy Intermediate Other Verified 04/28/25 10:45 Tricyclic Antidepressants Allergy Intermediate Other Verified 04/28/25 10:45 and Tricy ibuprofen Allergy Mild PT UNSURE Verified 04/28/25 10:45 OF REACTION Phenylpiperazine Allergy NEEDS Verified 04/28/25 10:45 Antidepressant FOLLOW-UP apixaban (From Eliquis) AdvReac Severe bleeding Verified 04/28/25 10:45 Family History Father Diabetes Heart disease Mother Heart disease Surgical History (Updated 04/28/25 @ 19:[address] Ang Messina, DO) History of implantable cardiac defibrillator (ICD) History of colonoscopy History of esophagogastroduodenoscopy (EGD) S/P right hemicolectomy History of arteriovenostomy for renal dialysis S/P cardiac pacemaker procedure S/P laparoscopic cholecystectomy Social History household members: spouse Smoking Status: Former smoker Tobacco: How many years used: 10 how long ago did patient quit smokin years alcohol intake: never ROS ROS Narrative negative except above Physical Exam Narrative Alert awake oriented x 3 no obvious distress no pallor no icterus no JVD s1s2 no murmurs lungs clear abdomen soft no organomegaly no edema Lab / Micro Data 04/19/25 10:32 04/29/25 05:55 Labs: Laboratory Results - last 24 hr 04/29/25 05:55: Sodium 138, Potassium 5.7 H, Chloride 100, Carbon Dioxide 27.7, Anion Gap 11, BUN 34 H, Creatinine 4.35 H, Estim Creat Clear Calc 12.58 L, Est GFR (MDRD) Non-Af 10 L, BUN/Creatinine Ratio 7.9 L, Glucose 98, Calcium 8.8
== END 2025-04-29 15:33 | disposition home or self-care (01) ==
LOC: SDC 17:44 → PCU 17:44
PROVIDERS: Admitting Provider Surgery Trauma Surgery; PCP Student in an Organized Health Care Education/Training Program; Referring Provider Surgery Trauma Surgery; Visit Provider Surgery Trauma Surgery
PROC: (CPT 36830; principal; 2025-04-28 11:45)
DX: I12.0 Hypertensive chronic kidney disease with stage 5 chronic kidney disease or end stage renal disease (principal); N18.6 End stage renal disease; I48.0 Paroxysmal atrial fibrillation; E11.22 Type 2 diabetes mellitus with diabetic chronic kidney disease; Z49.01 Encounter for fitting and adjustment of extracorporeal dialysis catheter; Z99.2 Dependence on renal dialysis; Z87.891 Personal history of nicotine dependence; Z79.899 Other long term (current) drug therapy; Z95.810 Presence of automatic (implantable) cardiac defibrillator; Z85.038 Personal history of other malignant neoplasm of large intestine; E66.812 Obesity, class 2; Z68.39 Body mass index [BMI] 39.0-39.9, adult; K21.9 Gastro-esophageal reflux disease without esophagitis; Z99.81 Dependence on supplemental oxygen; E87.5 Hyperkalemia; D63.8 Anemia in other chronic diseases classified elsewhere
CPT/HCPCS: 36830; 01844; 36415; 80048; 82962; 85027; 90937; 94002; 94003; 94668; 96374; 96376; 99221; 99252; A4648; A4216; G0257; G0378; G0463; J2405

== ENCOUNTER → 2025-05-09 | Outpatient (CLI) | payer MEDICARE, OTHER, SELFPAY ==
[2025-05-11 04:07] LABS: Carcinoembryonic Antigen 4.4 ng/mL (0.0-4.7)
== END | disposition home or self-care (01) ==
LOC: LAB 14:02
PROVIDERS: PCP Student in an Organized Health Care Education/Training Program; Referring Provider Internal Medicine Hematology & Oncology; Visit Provider Internal Medicine Hematology & Oncology
DX: C18.2 Malignant neoplasm of ascending colon (principal)
CPT/HCPCS: 36415; 82378

== ENCOUNTER → 2025-05-24 | Outpatient (CLI) | payer MEDICARE, OTHER, SELFPAY ==
--- NOTE | 2025-05-24 13:07 | BI_ITS ---
EXAM: SCRN MAMM (CAD)W/OSEAS BILAT DATE: 05/24/2025 CLINICAL HISTORY: F, Age 74 y/o , ANNUAL SCREENING TECHNIQUE: SCRN MAMM (CAD)W/OSEAS BILAT COMPARISON: Prior exam(s) dated 07/24/2023, 06/06/2022, 02/23/2019. FINDINGS: TISSUE DENSITY: There are scattered areas of fibroglandular density. Bilateral Breast Mammographic Findings: No significant masses, calcifications or other abnormalities are identified. BI/SCRN MAMM (CAD)W/OSEAS BILAT IMPRESSION: There is no mammographic evidence of malignancy. OVERALL FINAL ASSESSMENT BI-RADS 1: NEGATIVE. RECOMMENDATION: Routine annual follow-up in 1 Year A letter with findings and recommendations will be mailed to the patient. Reading Location: [id number]
== END | disposition home or self-care (01) ==
LOC: OPBI 13:06
PROVIDERS: PCP Student in an Organized Health Care Education/Training Program; Referring Provider Internal Medicine Hematology & Oncology; Visit Provider Internal Medicine Hematology & Oncology
DX: Z12.31 Encounter for screening mammogram for malignant neoplasm of breast (principal)
CPT/HCPCS: 77063; 77067

== ENCOUNTER → 2025-07-06 | Outpatient (CLI) | payer MEDICARE, OTHER, SELFPAY ==
--- NOTE | 2025-07-06 13:47 | AVDS_ITS ---
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 Inflow, 693.8 ml/min. Prox anastamosis, 706.6/375.6 cm/sec. Prox anastamosis, 469.5 ml/min. Prox graft, 152/102.7 cm/sec. Prox graft, 1046 ml/min. Mid graft, 131.2/76.8 cm/sec. Mid graft, 963.7 ml/min. Distal graft, 121.7/73.2 cm/sec. Distal graft, 181.4 ml/min. Distal anastamosis, 189.5/88.9 cm/sec. Distal anastamosis, 889.4 ml/min. Outflow, 134.7/60.3 cm/sec. Outflow, 2709 ml/min. Nonvascularized structure noted in the right mid upper arm that measures 0.91 x 1.99 x 3.53 cm. VL/AV Fistula/Dialysis Graft Scan Interpretation Summary Patent right upper extremity graft with adequate flow volume, diameter, and dep th. Elevated velocities at proximal anastomosis with vessel size mismatch. Nonvascularized structure noted in the right mid upper arm that measures 0.91 x 1.99 x 3.53 cm, not immediately adjacent to graft. Ordering Physician: Yaritza Carpio Referring Physician: Khloe Pabon Performed By: Nikki Mccoy RVT
== END | disposition home or self-care (01) ==
LOC: CVS 13:44
PROVIDERS: PCP Student in an Organized Health Care Education/Training Program; Referring Provider Physician Assistant; Visit Provider Physician Assistant
DX: Z48.812 Encounter for surgical aftercare following surgery on the circulatory system (principal); N18.6 End stage renal disease; Z95.828 Presence of other vascular implants and grafts
CPT/HCPCS: 93990

== ENCOUNTER 2025-07-12 07:03 | Day surgery (SDC) | payer MEDICARE, OTHER, SELFPAY ==
--- OUTSIDE RECORDS SUMMARY | 2025-06-28 12:28 | XMS RPT_ITS ---
Author Name Auto Generated Organization OHIP Care Team Providers Care Hazardous Substances Scientist Name Role Phone JOHN CHILDERS, DR STEELE Attending Un available NOLVIA COLÓN Primary Care Hoa vailable NOLVIA COLÓN Primary Care Hoa vailable DR CEDRIC LOPEZ MD Attending Un available SHAWNA RUANO, CARLTON Webster Consulting Unavailable SKYLA MARX Admitting Unavailable SKYLA MARX Primary Care Unavailable SKYLA MARX Attending Unavailable NOLVIA GRANDA EMPLOYMENT CASE MANAGER Consulting Unavailab le PROVIDER, UNKNOWN Consulting Unavailable PROVIDER, UNKNOWN Consulting Unavailable BONITA, MANUEL C Admitting Unavailable BONITA, MANUEL C Primary Care Unavailable BONITA, MANUEL C Consulting Unavailable BONITA, MANUEL C Attending Unavailable PROVIDER, UNKNOWN Consulting Unavailable PROVIDER, UNKNOWN Consulting Unavailable JOHN, CEDRIC CHILDERS Admitting Unava ilable BUCKTOWARSING, CEDRIC CHILDERS Primary Care Unava ilable BUCKTOWARSINYanelis, CEDRIC CHILDERS Attending Unava ilable BONITAIGNACIO FATIMAE C Consulting Unavailable PROVIDER, UNKNOWN Consulting Unavailable PROVIDER, UNKNOWN Consulting Unavailable ZUÑIGA, MELLISA T Primary Care Unavailable ZUÑIGA, MELLISA T Attending Unavailable ZUÑIGA, MELLISA T Admitting Unavailable LYNNWOOD, [place] Consulting Unavailable PROVIDER, UNKNOWN Consulting Unavailable PROVIDER, UNKNOWN Consulting Unavailable [facility] Care Unavailable FARZAD ADAIR Referring Unavailable NOLVIA GRANDA Primary Care Hoa vailable JORGE A SETHI Attending Unavailable NOLVIA GRANDA BHAVYA [facility] Hoa vailable NOLVIA GRANDA [facility] Primary Care Hoa vailable FARZAD ADAIR Attending Unavailable [facility] Unavailable ROSEMARY MACHADO Attending Unavailable FARZAD ADAIR Referring Unavailable [facility] Unavailable CINDY MINER Referring Unavailable [facility] Unavailable MONTY WEBSTER Referring UnavailNOLVIA [facility] Hoa vailable [facility] Unavailable CINDY MINER Referring Unavailable [facility] Unavailable FARZAD ADAIR Referring Unavailable [facility] Unavailable JORGE A SETHI Attending Unavailable SELF Referring Unavailable [facility] Unavailable FARZAD ADAIR Referring Unavailable CINDY MINER Attending Unavailable [facility] Unavailable MONTY WEBSTER Attending Unavailabl e MONTY WEBSTER Referring Unavailabl e FARZAD ADAIR Referring Unavailable [facility] Care Unavailable [facility] Unavailable FARZAD ADAIR Referring Unavailable WILLI WALL Referring Unava ilAleah Lynch Primary Care Unavailable MONTY WEBSTER Attending Unavailabl e WILLI WALL Referring Unava ilable WILLI WLAL Attending Unava ilable Aleah LOBMARDI Primary Care Unavailable LYNNWOOD, [place] Primary Care Unavailable GIOVANY, FARZAD GEGE Referring Unavailable LYNNWOOD, [place] Primary Care Unavailable ROSEMARY MACHADO Referring Unavailable LYNNWOOD, [place] Primary Care Unavailable GIOVANY, FARZAD GEGE Referring Unavailable LYNNWOOD, [place] Primary Care Unavailable TAIGEN, FARZAD GEGE Referring Unavailable LYNNWOOD, [place] Primary Care Unavailable GIOVANY, FARZAD GEGE Attending Unavailable GIOVANY, FARZAD GEGE Referring Unavailable PROBLEMS DATE TYPE CONDITION / CODE ATTENDING STATUS [facility] 09/02/2024 Active Sarcoidosis of l lisa (HCC) / D86.0(ICD-10) CINDY MINER Active [facility] 06/28/2025 Active Chronic kidney disease, stage 5 (HCC) / N18.5(ICD-10) CINDY MINER Active [facility] 06/28/2025 Active Essential (prima ry) hypertension / I10(ICD-10) CINDY MINER Active [facility] 06/28/2025 Active Personal history of malignant neoplasm of gastrointestinal tract / Z85.00(ICD-10) CINDY MINER Active [facility] 06/28/2025 Active Pacemaker reprogramming/check / Z45.018(ICD-10) NA Active [facility] 06/28/2025 Active SOB (shortness o f breath) / R06.02(ICD-10) NA Active [facility] 08/12/2024 Active Chronic atrial fibrillation (HCC) / I48.20(ICD-10) MONTY WEBSTER Active [facility] 02/24/2025 Active Chronic HFrEF (h eart failure with reduced ejection fraction) (HCC) / I50.22(ICD-10) MONTY WEBSTER Active [facility] 04/10/2023 Active Non-ischemic cardiomyopathy (HCC) / I42.8(ICD-10) NA Active [facility] 02/04/2025 Admitting Diagnosis Encounter for general adult medical examination without abnormal findings / Z0000(ICD-10) CEDRIC LOPEZ MD Active [facility] 02/04/2025 Principle Diagnosis Encounter for general adult medical examination without abnormal findings / Z0000(ICD-10) CEDRIC LOPEZ MD Active [facility] 08/12/2024 Active Paroxysmal atria l fibrillation (HCC) / I48.0(ICD-10) NA Active [facility] 08/12/2024 Active Atrial fibrillat ion, unspecified type (HCC) / I48.91(ICD-10) NA Active [facility] 07/22/2024 Active care home (curre nt) use of systemic steroids / Z79.52(ICD-10) JORGE A SETHI Active [facility] 07/22/2024 Active Medication manag ement / Z79.899(ICD-10) JORGE A SETHI Active [facility] 07/05/2024 Admitting Diagnosis Type 2 diabetes mellitus without complications / E119(ICD-10) SKYLA MARX [facility] 07/05/2024 Principle Diagnosis Type 2 diabetes mellitus without complications / E119(ICD-10) SKYLA MARX [facility] 07/05/2024 Secondary Diagnosis Anemia, unspecified / D649(ICD-10) SKYLA MARX [facility] PROCEDURES No Procedure Records Found RESULTS CNOV Observed: 06/28/2025 3:00 PM Status: COMPLETED Source: [facility] Office Visit (CARDMN) CINDY COYLE ([id number]) 1950 F Date Time Provider Department 06/28/25 3:00 PM CINDY MINER CARDMN During your visit today, we recorded the following information about you: Pulse Respiration Blood pressure Weight 83/minute 16/minute 119/57 94.8 kg Height 1.575 m Cindy Miner, WELDING FOREMAN.RECORDS ASSISTANT 06/28/2025 5:08 PM Signed [facility] [place] [facility] Department of Cardiovascular Medicine SECTION OF CARDIAC PACING and ELECTROPHYSIOLOGY OUTPATIENT VISIT DATE June 28, 2025 OUTPATIENT VISIT TYPE ESTABLISHED PRIMARY CARE PHYSICIAN: Khloe Pabon [id number] [place] [address] REFERRING PHYSICIAN: Farzad Adair [id number] [facility] [id number] CHIEF COMPLAINT: Af HISTORY OF PRESENT ILLNESS: Ms. Coyle is a 74 year old female who presents today for follow-up visit for AF. She is an established patient of Dr. Adair. And was last seen on 12/23/2024 by Bettye White APRN. 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 She was diagnosed with AF in 05/2024 and started on Eliquis. She was hospitalized in 06/2024 with Hgb of 5.7, transfused 2 units. She was found to have a GIB from right sided colonic mass s/p hemicolectomy 06/25/2024. She was told that mass was cancerous, removed and no need for further treatment other than surveillance. She reports another hospitalization in 08/2024 for GIB from suture site after resuming Eliquis a month prior. She was recommended resuming Eliquis with plans for a Watchman +/- AF ablation scheduled for 11/11/2024. She developed black tarry stools and ultimately stopped taking Eliquis two days prior to the scheduled Watchman. The procedure was canceled due to inability to tolerate short-term AC required. Her device check today shows one NS VT episode. RA lead noise oversensing- known issue<1% AT burden. The plan after her last OPD visit was to follow up with GI MD to see if AC could be tolerated short term. Watchman would then be rescheduled. She is not aware of recurrent AF. She continues on HD 3 days per week and recently had infiltration of IVF with large bruise noted GARY above her fistula. She has a Central venous catheter still in place upper right chest currently being used for dialysis while the arm heals. She reports she followed up with Dr. Zuñiga GI MD in [place], [place] and had an EGD and colonoscopy and was told everything was ok. We will obtain a copy of that and his recommendations regarding use of AC. She arrives in a wheel chair. She continues to be RAMIREZ and fatigues easily. She denies chest pain, shortness of breath, orthopnea, cough, edema, palpitations, PND, lightheadedness or syncope. PAST CARDIAC HISTORY: AF, CM PAST MEDICAL HISTORY Diagnosis Date Anemia Atrial fibrillation ([facility]) 05/2024 Biventricular ICD (implantable cardioverter-defibrillator) in place 12/2022 new RV and LBB pace/sense lead, upgrade BiV ICD, RA and CS (previously placed) were inserted in RA, CS ports, new left bundle lead was placed to RV pace/sense port, distal coil ICD pin was placed to distal coil port, proximal coil ICD port was plugged, old RV lead was capped, ICD lead pace/sense terminal pin was capped. Chronic venous insufficiency Diverticulitis DM2 (diabetes mellitus, type 2) ([facility]) ESRD (end stage renal disease) on dialysis ([facility]) 04/27/2021 History of restrictive pulmonary disease HTN (hypertension) Obesity Secondary hyperparathyroidism of renal origin ([facility]) UTI (urinary tract infection) PAST SURGICAL HISTORY Procedure Laterality Date AV FISTULA PLACEMENT HX Right CARDIAC PACEMAKER PLACEMENT HX 02/04/2017 LAPAROSCOPIC CHOLECYSTECTOMY 03/13/2012 RIGHT HEART CATHERIZATION 03/29/2015 TONSILLECTOMY AND ADENOIDECTOMY <AGE 12 SOCIAL HISTORY SOCIAL HISTORY[1] FAMILY HISTORY Problem Relation Age of Onset Heart disease Mother Heart disease Father Diabetes Father ALLERGIES: ALLERGIES Allergen Reactions Ibuprofen Mental Status Change, Other: See Comments Tricyclic Antidepre* Contraindication-Medical Surgical Doxycycline Unknown Fluoxetine Unknown Metoprolol Unknown Tetracyclic Antidep* Other: See Comments palpitations MEDICATIONS: predniSONE (DELTASONE) 10 mg tablet TAKE ONE TABLET BY MOUTH ONCE DAILY losartan (COZAAR) 25 mg tablet Take 0.5 tablets by mouth once daily. bisoprolol (ZEBETA) 5 mg tablet Take 0.5 tablets by mouth four times a week. pantoprazole DR (PROTONIX) 40 mg tablet Take 1 tablet by mouth every afternoon. midodrine (PROAMATINE) 10 mg tablet TAKE ONE TABLET BY MOUTH EVERY DAY mon/wed/fri ON dialysis DAYS prior TO dialysis folic acid/vit B complex and C (DIALYVITE 800 ORAL) Take 800 mg by mouth once daily. sucroferric oxyhydroxide (VELPHORO) 500 mg chew Take 500 mg by mouth three times daily with meals. brimonidine (ALPHAGAN P) 0.1 % drop Use 1 Drop in the right eye twice daily. fluorometholone (FML LIQUID FILM) 0.1 % ophthalmic suspension Use 1 Drop in both eyes every other day. REVIEW OF SYSTEMS: GENERAL: Negative for: Weight loss or gain, Fever or Chills, Weakness and Sleep difficulties. HEENT: Negative for: Headache, Impaired Vision, Glasses, Hearing Impairment, Ringing in Ears, Nosebleeds, Poor dental care, Bleeding Gums, Dentures NECK: Negative for: Swelling, Pain, Stiffness RESPIRATORY: Negative for: Cough, Blood in Sputum, Shortness of breath, Wheezing, Apnea GASTROINTESTINAL: Negative for: Trouble swallowing, Heartburn, Change in bowel habits, Blood in stool, Dark black stools MUSCULOSKELETAL: Negative for: Muscle or joint pain, Stiffness , Joint swelling NEUROLOGIC/PSYCHIATRIC: Negative for: Weakness, Paralysis, Numbness, Tingling, Tremor, Nervousness, Depressed mood, Memory loss SKIN: Negative for: Rashes, Itching HEMATOLOGICAL/LYMPHATIC: Negative for: Easy bruising , Easy bleeding ENDOCRINE: Negative for: Heat or cold intolerance, Excessive sweating, Frequent urination, Frequent thirst PHYSICAL EXAMINATION: 06/28/25 1459 BP: 119/57 BP Site: Left Arm BP Position: Sitting BP Cuff Size: Large Adult Pulse: 83 Resp: 16 Weight: 94.8 kg (209 lb) Height: 157.5 cm (5' 2) General: Well appearing, in no acute distress. Skin: No clubbing, no cyanosis. Eyes: Extra ocular movements intact Oropharynx: Teeth in good repair. Neck: No jugular venous distention, no carotid bruits, carotids have a normal upstroke, no palpable thyromegaly. Lungs: Clear to auscultation bilaterally, no wheezing or rhonchi. Heart: Regular rhythm, PMI not displaced, S1, S2 normal, no S3, no S4, no heaves, no rub and no murmur. Abdomen: Soft, nontender, bowel sounds normal, no palpable organomegaly, no bruits. Extremities: generalized peripheral edema, 2+ pitting LE, ecchymosis extending over upper R Arm approx 5x5. Bruit right forearm with palpable thrill and auscultated bruit. Neuro: Oriented to person, place and time, alert, cooperative, in Wheel chair. CARDIOVASCULAR MEDICINE TESTING: Electrocardiogram: Device Check: Normal In-Office: With Events * Normal Device Function * Battery: 4.50 yrs * Sensing, impedance and thresholds reviewed and tested * Presenting Rhythm: /STATIONARY EQUIPMENT MECHANIC * Underlying Rhythm: SR with escape beats at DDI 40 * RA pacing 31%, RV pacing 98% * Heart Rate Histograms reviewed * Pacing and Detection Parameters were evaluated Non-sustained Ventricular Tachycardia * Stored EGMs are consistent with or suggestive of Non-sustained VT * Total episodes: 1 Noise * There were 2 brief episodes of RA lead noise oversensing. * Known issue Last ECHO Result Conclusion ECHO Collected: 02/24/2025 10:12 AM (Final result) Impression: CONCLUSIONS: - Technically difficult exam due to body habitus and suboptimal positioning. - Exam indication: LV function - The left ventricle is moderately dilated. Left ventricular systolic function is severely decreased. EF = 10 ? 5% (2D 4-ch.) Definity contrast used for endocardial border detection. Left ventricular diastolic function was not evaluated due to an arrhythmia. - The right ventricle is moderately dilated. Right ventricular systolic function is moderately decreased. FAC: 22.0% - The left atrial cavity is severely dilated. - There is moderately severe (3+) mitral holosystolic valve regurgitation due to apical tethering of normal mitral leaflet caused by LV enlargement. Regurgitant orifice area (PISA) is 0.30 cm?. - There is moderate (2+ - 3+) tricuspid valve regurgitation caused by annular dilatation. - There is moderate aortic valve stenosis caused by calcified valve and restricted opening. AV area is 1.35 cm? (0.66 cm?/m?) by continuity, VTI. The peak gradient is 25 mmHg, the mean gradient is 12 mmHg and the dimensionless valve index is 0.43. - Previous AV gradients 37/20mmHg. - Estimated right ventricular systolic pressure is 52 mmHg consistent with moderate pulmonary hypertension. Estimated right atrial pressure is 8 mmHg based on IVC assessment. - Exam was compared with the prior echocardiographic exam performed on 02/05/2024. Lower LVEF today, lower gradients across the AV, and RVSP is increased to 52 mmHg, from 31 mmHg. The aortic stenosis severity may be underestimated due poor left ventricular function. The valve leaflet motion and morphology (clip 23) is consistent with severe aortic stenosis. Consider additional evaluation if clinically indicate. * * * Final * * * Last EKG Result Conclusion ECG COMPLETE Collected: 06/28/2025 11:31 AM (Preliminary result) Impression: ATRIAL-SENSED VENTRICULAR-PACED RHYTHM ABNORMAL ECG I have personally reviewed the Electrocardiogram and Device Check. IMPRESSION: Ms. Coyle is a 74 year old female who presents today for follow-up visit for AF. She is an established patient of Dr. Adair. And was last seen on 12/23/2024 by Bettye White APRN. 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 She was diagnosed with AF in 05/2024 and started on Eliquis. She was hospitalized in 06/2024 with Hgb of 5.7, transfused 2 units. She was found to have a GIB from right sided colonic mass s/p hemicolectomy 06/25/2024. She was told that mass was cancerous, removed and no need for further treatment other than surveillance. She reports another hospitalization in 08/2024 for GIB from suture site after resuming Eliquis a month prior. She was recommended resuming Eliquis with plans for a Watchman +/- AF ablation scheduled for 11/11/2024. She developed black tarry stools and ultimately stopped taking Eliquis two days prior to the scheduled Watchman. The procedure was canceled due to inability to tolerate short-term AC required. Her device check today shows one NS VT episode. RA lead noise oversensing- known issue<1% AT burden. The plan after her last OPD visit was to follow up with GI MD to see if AC could be tolerated short term. Watchman would then be rescheduled. She is not aware of recurrent AF. She continues on HD 3 days per week and recently had infiltration of IVF with large bruise noted GARY above her fistula. She has a Central venous catheter still in place upper right chest currently being used for dialysis while the arm heals. She reports she followed up with Dr. Zuñiga, GI MD in [place], [place] and had an EGD and colonoscopy and was told everything was ok. We will obtain a copy of that and his recommendations regarding use of AC. She arrives in a wheel chair. She continues to be RAMIREZ and fatigues easily. PLAN AND RECOMMENDATIONS: I48.0 Paroxysmal atrial fibrillation (HCC) (primary encounter diagnosis) Comment: -Dx 05/2024 on remote check and started on Eliquis with subsequent GIB - consideration for Watchman but was unable to tolerate AC -no AF noted on todays' device check. - continue to monitor N18.5 Chronic kidney disease, stage 5 (HCC) Comment: - ESRD on hemodialysis 3 days per week - R arm fistula ? Function -central line right upper chest D86.0 Sarcoidosis of lung (HCC) Comment: - followed by Dr. Virk - daily prednisone I10 Essential (primary) hypertension Comment: - controlled today on medications - noted midodrine on HD days Z85.00 Personal history of malignant neoplasm of gastrointestinal tract Comment: - s/p right sided colonic CA s/p resection with GIB X2 - now followed by Dr. Zuñiga in [place], [place] - consider resuming AC if cleared I42.8 NICM- EF now 10% - very high risk for intervention - previous hx of VF successfully treated with ATP Aug and Sep 2024- 4 episodes. - discussed with Dr. Adair, will continue to monitor for now. No plan for Watchman procedure at present. - she is planning on going to [facility] for the month of Nov. F/u in 6 months, virtual I personally interviewed, confirmed and edited the above information as obtained by others. CONTACT INFORMATION: Cindy Miner APRN.RECORDS ASSISTANT [1] Social History Tobacco Use Smoking status: Former Current packs/day: 0.00 Average packs/day: 1 pack/day for 20.0 years (20.0 ttl pk-yrs) Types: Cigarettes Start date: 1959 Quit date: 1980 Years since quittin.7 Smokeless tobacco: Never Vaping Use Vaping status: Never Used Substance Use Topics Alcohol use: Not Currently Drug use: Never Cindy MinerANMOL 06/28/2025 3:09 PM Signed We discussed your atrial fibrillation (AFib) and stroke prevention: - You are not currently protected from stroke risk without anticoagulation. AFib can occur intermittently, even without noticeable symptoms. - We discussed the Watchman device as an option to reduce your stroke risk. Placement of the Watchman requires a period of anticoagulation (approximately 6-8 weeks) before and after the procedure. - I will contact Dr. Zuñiga, your GI doctor, to confirm if it is safe to proceed with anticoagulation. Once I have his input, we will determine the next steps and scheduling for the Watchman procedure. - You mentioned a preference to avoid scheduling the procedure in November due to your planned trip to [place]. We will take this into account when planning. We discussed your dialysis and blood clotting issues: - You reported that your blood clotted during dialysis sessions, requiring Heparin to prevent clotting. Heparin is not a long-term solution as it is administered intravenously and requires continuous monitoring. - Your fistula appears to be functioning well, but you should monitor the area for any signs of infection or skin changes. Please notify us if you notice any redness, swelling, or other concerning symptoms. We discussed your gastrointestinal (GI) health: - You recently saw Dr. Zuñiga, who performed an upper and lower scope. He reported that everything looked good, and biopsy samples came back normal. - You are currently taking Colestipol for diarrhea. You mentioned needing to take it daily to prevent symptoms. Please discuss this with Dr. Zuñiga to confirm the best management plan. We discussed your medications: - You are currently taking Bisoprolol 5 mg (half a tablet daily on non-dialysis days) to manage your heart rate and blood pressure. - You are taking Prednisone 10 mg daily for sarcoidosis of the lung. - You are taking thyroid medication (two pills daily) and receiving protein supplements through dialysis. - You are no longer taking Losartan, as it caused side effects. While it can help prevent heart enlargement, it is important to prioritize your comfort and symptom management. - You are taking Alpagan eye drops and Velphoro (a chewable medication for phosphorus management). - You are not currently taking a probiotic or restless leg medication. We discussed your overall health and activity level: - You reported feeling short of breath with walking and fatigue after activities such as shopping or housework. Your blood pressure and heart rate were stable during today?s visit, and your EKG was normal. - Please continue to monitor your symptoms and let us know if your shortness of breath worsens or if you experience chest pain, dizziness, or fainting. Next steps: - I will contact Dr. Zuñiga to confirm if it is safe to proceed with anticoagulation for the Watchman procedure. Once I have his input, we will discuss the timeline and scheduling. - Please continue monitoring your fistula site and notify us of any concerning changes. - Follow up with Dr. Zuñiga regarding the ongoing need for daily Colestipol and any additional recommendations for managing your GI symptoms. - Let us know if you experience any new or worsening symptoms. Referring Provider: FARZAD ADAIR [[id number]] Allergies As of Date: 06/28/2025 Noted Allergy Reaction IBUPROFEN 05/17/2021 1 - Mental Status Change 14 - Other: See Comments TRICYCLIC ANTIDEPRESSANTS AND TRI*05/31/2021 15 - Contraindication-Medical [place]* DOXYCYCLINE 02/26/2024 16 - Unknown FLUOXETINE 02/26/2024 16 - Unknown METOPROLOL 02/26/2024 16 - Unknown TETRACYCLIC ANTIDEPRESSANTS 08/08/2022 14 - Other: See Comments Comments: palpitations Date Reviewed: 06/28/2025 Reviewed by: Cindy Miner APRN.RECORDS ASSISTANT - Fully Assessed Reason for Visit: Atrial Fibrillation [513] Primary Visit Diagnosis:Paroxysmal atrial fibrillation (HCC) [I48.0] Other Visit Diagnoses:Chronic kidney disease, stage 5 (HCC) [N18.5] Sarcoidosis of lung (HCC) [D86.0] Essential (primary) hypertension [I10] Personal history of malignant neoplasm of gastrointestinal tract [Z85.00] Non-ischemic cardiomyopathy (HCC) [I42.8] Cardiac resynchronization therapy defibrillator (ELECTRONICS TESTER-D) in place [Z95.810] Order(s):CARDIOVASCULAR MEDICINE OP FOLLOW UP APPT ORDER [[id number]] Order #: [id number]: 1 CARDIOVASCULAR MEDICINE OP FOLLOW UP APPT ORDER [[id number]] Order #: [id number]: 1 CARDIOVASCULAR MEDICINE OP FOLLOW UP APPT ORDER [[id number]] Order #: [id number]: 1 FUTURE ECG COMPLETE [ECG01] Order #: [id number] FUTURE PACER OR ICD CHECK ([place], [place]) [9477410] Order #: [id number]: 1 FUTURE Prescriptions as of 06/28/2025 - colestipol (COLESTID) 1 gram tablet Take 1 tablet by mouth once daily. Take 1-2 tablets per day as needed for diarrhea - predniSONE (DELTASONE) 10 mg tablet TAKE ONE TABLET BY MOUTH ONCE DAILY - bisoprolol (ZEBETA) 5 mg tablet Take 0.5 tablets by mouth four times a week. - pantoprazole DR (PROTONIX) 40 mg tablet Take 1 tablet by mouth every afternoon. - midodrine (PROAMATINE) 10 mg tablet TAKE ONE TABLET BY MOUTH EVERY DAY mon/fri/fri ON dialysis DAYS prior TO dialysis - folic acid/vit B complex and C (DIALYVITE 800 ORAL) Take 800 mg by mouth once daily. - sucroferric oxyhydroxide (VELPHORO) 500 mg chew Take 500 mg by mouth three times daily with meals. - brimonidine (ALPHAGAN P) 0.1 % drop Use 1 Drop in the right eye twice daily. - fluorometholone (FML LIQUID FILM) 0.1 % ophthalmic suspension Use 1 Drop in both eyes every other day. 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 AFib can occur intermittently, even without noticeable symptoms. - We discussed the Watchman device as an option to reduce your stroke risk. Placement of the Watchman requires a period of anticoagulation (approximately 6-8 weeks) before and after the procedure. - I will contact Dr. Zuñiga, your GI doctor, to confirm if it is safe to proceed with anticoagulation. Once I have his input, we will determine the next steps and scheduling for the Watchman procedure. - You mentioned a preference to avoid scheduling the procedure in November due to your planned trip to [place]. We will take this into account when planning. We discussed your dialysis and blood clotting issues: - You reported that your blood clotted during dialysis sessions, requiring Heparin to prevent clotting. Heparin is not a long-term solution as it is administered intravenously and requires continuous monitoring. - Your fistula appears to be functioning well, but you should monitor the area for any signs of infection or skin changes. Please notify us if you notice any redness, swelling, or other concerning symptoms. We discussed your gastrointestinal (GI) health: - You recently saw Dr. Zuñiga, who performed an upper and lower scope. He reported that everything looked good, and biopsy samples came back normal. - You are currently taking Colestipol for diarrhea. You mentioned needing to take it daily to prevent symptoms. Please discuss this with Dr. Zuñiga to confirm the best management plan. We discussed your medications: - You are currently taking Bisoprolol 5 mg (half a tablet daily on non-dialysis days) to manage your heart rate and blood pressure. - You are taking Prednisone 10 mg daily for sarcoidosis of the lung. - You are taking thyroid medication (two pills daily) and receiving protein supplements through dialysis. - You are no longer taking Losartan, as it caused side effects. While it can help prevent heart enlargement, it is important to prioritize your comfort and symptom management. - You are taking Alpagan eye drops and Velphoro (a chewable medication for phosphorus management). - You are not currently taking a probiotic or restless leg medication. We discussed your overall health and activity level: - You reported feeling short of breath with walking and fatigue after activities such as shopping or housework. Your blood pressure and heart rate were stable during today?s visit, and your EKG was normal. - Please continue to monitor your symptoms and let us know if your shortness of breath worsens or if you experience chest pain, dizziness, or fainting. Next steps: - I will contact Dr. Zuñiga to confirm if it is safe to proceed with anticoagulation for the Watchman procedure. Once I have his input, we will discuss the timeline and scheduling. - Please continue monitoring your fistula site and notify us of any concerning changes. - Follow up with Dr. Zuñiga regarding the ongoing need for daily Colestipol and any additional recommendations for managing your GI symptoms. - Let us know if you experience any new or worsening symptoms. Medications Discontinued During This Encounter Prescriptions - losartan (COZAAR) 25 mg tablet (Discontinued) Take 0.5 tablets by mouth once daily. Encounter Status:Closed by CINDY MINER on 06/28/25 PROGRESS Observed: 06/28/2025 12:37 PM Status: COMPLETED Source: [facility] HNO ID: [id number] Author: CINDY MINER APRN.RECORDS ASSISTANT Service: ? Author Type: Nurse Practitioner Type: Progress Notes Filed: 06/28/2025 17:08 Note Text: [facility] [place] [facility] Department of Cardiovascular Medicine SECTION OF CARDIAC PACING and ELECTROPHYSIOLOGY OUTPATIENT VISIT DATE June 28, 2025 OUTPATIENT VISIT TYPE ESTABLISHED PRIMARY CARE PHYSICIAN: Khloe Pabon [id number] [place] [address] REFERRING PHYSICIAN: Farzad Adair [id number] [facility] [id number] CHIEF COMPLAINT: Af HISTORY OF PRESENT ILLNESS: Ms. Coyle is a 74 year old female who presents today for follow-up visit for AF. She is an established patient of Dr. Adair. And was last seen on 12/23/2024 by Bettye White APRN. 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 She was diagnosed with AF in 05/2024 and started on Eliquis. She was hospitalized in 06/2024 with Hgb of 5.7, transfused 2 units. She was found to have a GIB from right sided colonic mass s/p hemicolectomy 06/25/2024. She was told that mass was cancerous, removed and no need for further treatment other than surveillance. She reports another hospitalization in 08/2024 for GIB from suture site after resuming Eliquis a month prior. She was recommended resuming Eliquis with plans for a Watchman +/- AF ablation scheduled for 11/11/2024. She developed black tarry stools and ultimately stopped taking Eliquis two days prior to the scheduled Watchman. The procedure was canceled due to inability to tolerate short-term AC required. Her device check today shows one NS VT episode. RA lead noise oversensing- known issue<1% AT burden. The plan after her last OPD visit was to follow up with GI MD to see if AC could be tolerated short term. Watchman would then be rescheduled. She is not aware of recurrent AF. She continues on HD 3 days per week and recently had infiltration of IVF with large bruise noted GARY above her fistula. She has a Central venous catheter still in place upper right chest currently being used for dialysis while the arm heals. She reports she followed up with Dr. Zuñiga, GI MD in [place], [place] and had an EGD and colonoscopy and was told everything was ok. We will obtain a copy of that and his recommendations regarding use of AC. She arrives in a wheel chair. She continues to be RAMIREZ and fatigues easily. She denies chest pain, shortness of breath, orthopnea, cough, edema, palpitations, PND, lightheadedness or syncope. PAST CARDIAC HISTORY: AF, CM PAST MEDICAL HISTORY Diagnosis Date Anemia Atrial fibrillation (HCC) 05/2024 Biventricular ICD (implantable cardioverter-defibrillator) in place 12/2022 new RV and LBB pace/sense lead, upgrade BiV ICD, RA and CS (previously placed) were inserted in RA, CS ports, new left bundle lead was placed to RV pace/sense port, distal coil ICD pin was placed to distal coil port, proximal coil ICD port was plugged, old RV lead was capped, ICD lead pace/sense terminal pin was capped. Chronic venous insufficiency Diverticulitis DM2 (diabetes mellitus, type 2) ([facility]) ESRD (end stage renal disease) on dialysis ([facility]) 04/27/2021 History of restrictive pulmonary disease HTN (hypertension) Obesity Secondary hyperparathyroidism of renal origin ([facility]) UTI (urinary tract infection) PAST SURGICAL HISTORY Procedure Laterality Date AV FISTULA PLACEMENT HX Right CARDIAC PACEMAKER PLACEMENT HX 02/04/2017 LAPAROSCOPIC CHOLECYSTECTOMY 03/13/2012 RIGHT HEART CATHERIZATION 03/29/2015 TONSILLECTOMY AND ADENOIDECTOMY <AGE 13 SOCIAL HISTORY SOCIAL HISTORY[1] FAMILY HISTORY Problem Relation Age of Onset Heart disease Mother Heart disease Father Diabetes Father ALLERGIES: ALLERGIES Allergen Reactions Ibuprofen Mental Status Change, Other: See Comments Tricyclic Antidepre* Contraindication-Medical Surgical Doxycycline Unknown Fluoxetine Unknown Metoprolol Unknown Tetracyclic Antidep* Other: See Comments palpitations MEDICATIONS: predniSONE (DELTASONE) 10 mg tablet TAKE ONE TABLET BY MOUTH ONCE DAILY losartan (COZAAR) 25 mg tablet Take 0.5 tablets by mouth once daily. bisoprolol (ZEBETA) 5 mg tablet Take 0.5 tablets by mouth four times a week. pantoprazole DR (PROTONIX) 40 mg tablet Take 1 tablet by mouth every afternoon. midodrine (PROAMATINE) 10 mg tablet TAKE ONE TABLET BY MOUTH EVERY DAY mon/wed/fri ON dialysis DAYS prior TO dialysis folic acid/vit B complex and C (DIALYVITE 800 ORAL) Take 800 mg by mouth once daily. sucroferric oxyhydroxide (VELPHORO) 500 mg chew Take 500 mg by mouth three times daily with meals. brimonidine (ALPHAGAN P) 0.1 % drop Use 1 Drop in the right eye twice daily. fluorometholone (FML LIQUID FILM) 0.1 % ophthalmic suspension Use 1 Drop in both eyes every other day. REVIEW OF SYSTEMS: GENERAL: Negative for: Weight loss or gain, Fever or Chills, Weakness and Sleep difficulties. HEENT: Negative for: Headache, Impaired Vision, Glasses, Hearing Impairment, Ringing in Ears, Nosebleeds, Poor dental care, Bleeding Gums, Dentures NECK: Negative for: Swelling, Pain, Stiffness RESPIRATORY: Negative for: Cough, Blood in Sputum, Shortness of breath, Wheezing, Apnea GASTROINTESTINAL: Negative for: Trouble swallowing, Heartburn, Change in bowel habits, Blood in stool, Dark black stools MUSCULOSKELETAL: Negative for: Muscle or joint pain, Stiffness , Joint swelling NEUROLOGIC/PSYCHIATRIC: Negative for: Weakness, Paralysis, Numbness, Tingling, Tremor, Nervousness, Depressed mood, Memory loss SKIN: Negative for: Rashes, Itching HEMATOLOGICAL/LYMPHATIC: Negative for: Easy bruising , Easy bleeding ENDOCRINE: Negative for: Heat or cold intolerance, Excessive sweating, Frequent urination, Frequent thirst PHYSICAL EXAMINATION: 06/28/25 1459 BP: 119/57 BP Site: Left Arm BP Position: Sitting BP Cuff Size: Large Adult Pulse: 83 Resp: 16 Weight: 94.8 kg (209 lb) Height: 157.5 cm (5' 2) General: Well appearing, in no acute distress. Skin: No clubbing, no cyanosis. Eyes: Extra ocular movements intact Oropharynx: Teeth in good repair. Neck: No jugular venous distention, no carotid bruits, carotids have a normal upstroke, no palpable thyromegaly. Lungs: Clear to auscultation bilaterally, no wheezing or rhonchi. Heart: Regular rhythm, PMI not displaced, S1, S2 normal, no S3, no S4, no heaves, no rub and no murmur. Abdomen: Soft, nontender, bowel sounds normal, no palpable organomegaly, no bruits. Extremities: generalized peripheral edema, 2+ pitting LE, ecchymosis extending over upper R Arm approx 5x5. Bruit right forearm with palpable thrill and auscultated bruit. Neuro: Oriented to person, place and time, alert, cooperative, in Wheel chair. CARDIOVASCULAR MEDICINE TESTING: Electrocardiogram: Device Check: Normal In-Office: With Events * Normal Device Function * Battery: 4.50 yrs * Sensing, impedance and thresholds reviewed and tested * Presenting Rhythm: /[employer]ATION[employer] EQUIPMENT MECH[employer]IC * Underlying Rhythm: SR with escape beats at DDI 40 * RA pacing 31%, RV pacing 98% * Heart Rate Histograms reviewed * Pacing and Detection Parameters were evaluated Non-sustained Ventricular Tachycardia * Stored EGMs are consistent with or suggestive of Non-sustained VT * Total episodes: 1 Noise * There were 2 brief episodes of RA lead noise oversensing. * Known issue Last ECHO Result Conclusion ECHO Collected: 02/24/2025 10:12 AM (Final result) Impression: CONCLUSIONS: - Technically difficult exam due to body habitus and suboptimal positioning. - Exam indication: LV function - The left ventricle is moderately dilated. Left ventricular systolic function is severely decreased. EF = 10 ? 5% (2D 4-ch.) Definity contrast used for endocardial border detection. Left ventricular diastolic function was not evaluated due to an arrhythmia. - The right ventricle is moderately dilated. Right ventricular systolic function is moderately decreased. FAC: 22.0% - The left atrial cavity is severely dilated. - There is moderately severe (3+) mitral holosystolic valve regurgitation due to apical tethering of normal mitral leaflet caused by LV enlargement. Regurgitant orifice area (PISA) is 0.30 cm?. - There is moderate (2+ - 3+) tricuspid valve regurgitation caused by annular dilatation. - There is moderate aortic valve stenosis caused by calcified valve and restricted opening. AV area is 1.35 cm? (0.66 cm?/m?) by continuity, VTI. The peak gradient is 25 mmHg, the mean gradient is 12 mmHg and the dimensionless valve index is 0.43. - Previous AV gradients 37/20mmHg. - Estimated right ventricular systolic pressure is 52 mmHg consistent with moderate pulmonary hypertension. Estimated right atrial pressure is 8 mmHg based on IVC assessment. - Exam was compared with the prior CC echocardiographic exam performed on 02/05/2024. Lower LVEF today, lower gradients across the AV, and RVSP is increased to 52 mmHg, from 31 mmHg. The aortic stenosis severity may be underestimated due poor left ventricular function. The valve leaflet motion and morphology (clip 23) is consistent with severe aortic stenosis. Consider additional evaluation if clinically indicate. * * * Final * * * Last EKG Result Conclusion ECG COMPLETE Collected: 06/28/2025 11:31 AM (Preliminary result) Impression: ATRIAL-SENSED VENTRICULAR-PACED RHYTHM ABNORMAL ECG I have personally reviewed the Electrocardiogram and Device Check. IMPRESSION: Ms. Coyle is a 74 year old female who presents today for follow-up visit for AF. She is an established patient of Dr. Adair. And was last seen on 12/23/2024 by Bettye White APRN. 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 She was diagnosed with AF in 05/2024 and started on Eliquis. She was hospitalized in 06/2024 with Hgb of 5.7, transfused 2 units. She was found to have a GIB from right sided colonic mass s/p hemicolectomy 06/25/2024. She was told that mass was cancerous, removed and no need for further treatment other than surveillance. She reports another hospitalization in 08/2024 for GIB from suture site after resuming Eliquis a month prior. She was recommended resuming Eliquis with plans for a Watchman +/- AF ablation scheduled for 11/11/2024. She developed black tarry stools and ultimately stopped taking Eliquis two days prior to the scheduled Watchman. The procedure was canceled due to inability to tolerate short-term AC required. Her device check today shows one NS VT episode. RA lead noise oversensing- known issue<1% AT burden. The plan after her last OPD visit was to follow up with GI MD to see if AC could be tolerated short term. Watchman would then be rescheduled. She is not aware of recurrent AF. She continues on HD 3 days per week and recently had infiltration of IVF with large bruise noted GARY above her fistula. She has a Central venous catheter still in place upper right chest currently being used for dialysis while the arm heals. She reports she followed up with Dr. Zuñiga GI in [place], [place] and had an EGD and colonoscopy and was told everything was ok. We will obtain a copy of that and his recommendations regarding use of AC. She arrives in a wheel chair. She continues to be RAMIREZ and fatigues easily. PLAN AND RECOMMENDATIONS: I48.0 Paroxysmal atrial fibrillation (HCC) (primary encounter diagnosis) Comment: -Dx 05/2024 on remote check and started on Eliquis with subsequent GIB - consideration for Watchman but was unable to tolerate AC -no AF noted on todays' device check. - continue to monitor N18.5 Chronic kidney disease, stage 5 (HCC) Comment: - ESRD on hemodialysis 3 days per week - R arm fistula ? Function -central line right upper chest D86.0 Sarcoidosis of lung (HCC) Comment: - followed by Dr. Virk - daily prednisone I10 Essential (primary) hypertension Comment: - controlled today on medications - noted midodrine on HD days Z85.00 Personal history of malignant neoplasm of gastrointestinal tract Comment: - s/p right sided colonic CA s/p resection with GIB X2 - now followed by Dr. Zuñiga in [place], [place] - consider resuming AC if cleared I42.8 NICM- EF now 10% - very high risk for intervention - previous hx of VF successfully treated with ATP Aug and Sep 2024- 4 episodes. - discussed with Dr. Adair, will continue to monitor for now. No plan for Watchman procedure at present. - she is planning on going to [facility] for the month of Nov. F/u in 6 months, virtual I personally interviewed, confirmed and edited the above information as obtained by others. CONTACT INFORMATION: Cindy Miner, KEELEY.RECORDS ASSISTANT [1] Social History Tobacco Use Smoking status: Former Current packs/day: 0.00 Average packs/day: 1 pack/day for 20.0 years (20.0 ttl pk-yrs) Types: Cigarettes Start date: 1959 Quit date: 1980 Years since quittin.7 Smokeless tobacco: Never Vaping Use Vaping status: Never Used Substance Use Topics Alcohol use: Not Currently Drug use: Never NIEVES Observed: 04/21/2025 12:00 AM Status: COMPLETED Source: [facility] Telephone (CARDMN) CINDY COYLE ([id number]) 1950 F Date Time Provider Department 04/21/25 FARZAD ADAIR During your visit today, we recorded the following information about you: Gerardo Castro 04/21/2025 3:23 PM Signed Received completed device form. Scanned in [employer] and the [employer]. Faxed to [phone] Gerardo Padilla, Admin Allergies As of Date: 04/21/2025 Noted Allergy Reaction IBUPROFEN 05/17/2021 1 - Mental Status Change 14 - Other: See Comments TRICYCLIC ANTIDEPRESSANTS AND TRI*05/31/2021 15 - Contraindication-Medical [place]* DOXYCYCLINE 02/26/2024 16 - Unknown FLUOXETINE 02/26/2024 16 - Unknown METOPROLOL 02/26/2024 16 - Unknown TETRACYCLIC ANTIDEPRESSANTS 08/08/2022 14 - Other: See Comments Comments: palpitations Date Reviewed: 02/24/2025 Reviewed by: Kathleen Cotter MA - Fully Assessed Reason for Visit: Forms [913] Prescriptions as of 04/21/2025 - losartan (COZAAR) 25 mg tablet Take 0.5 tablets by mouth once daily. - bisoprolol (ZEBETA) 5 mg tablet Take 0.5 tablets by mouth four times a week. - pantoprazole DR (PROTONIX) 40 mg tablet Take 1 tablet by mouth every afternoon. - predniSONE (DELTASONE) 10 mg tablet Take 1 tablet by mouth once daily. - midodrine (PROAMATINE) 10 mg tablet TAKE ONE TABLET BY MOUTH EVERY DAY mon/wed/fri ON dialysis DAYS prior TO dialysis - folic acid/vit B complex and C (DIALYVITE 800 ORAL) Take 800 mg by mouth once daily. - sucroferric oxyhydroxide (VELPHORO) 500 mg chew Take 500 mg by mouth three times daily with meals. - brimonidine (ALPHAGAN P) 0.1 % drop Use 1 Drop in the right eye twice daily. - fluorometholone (FML LIQUID FILM) 0.1 % ophthalmic suspension Use 1 Drop in both eyes every other day. 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 Pathology Reports Accession: Collected Date/Time: Received Date/Time: Pathologist: [id number] 03/01/2025 09:48 EDT 03/02/2025 09:41 EDT ISIAH CARROLL MD Final Surgical Pathology Report DIAGNOSIS: A. RANDOM COLON BIOPSIES: - FRAGMENTS OF UNREMARKABLE COLON MUCOSA B. COLON, NEOTERMINAL ILEUM, BIOPSIES: - ILEAL MUCOSA WITH NONSPECIFIC REGENERATIVE CHANGES AND INFLAMMATION - NEGATIVE FOR MALIGNANCY COMMENT: [facility] - [id number] CLINICAL INFORMATION: COLON CANCER; POSSIBLE MICROSCOPIC COLITIS x4 SPECIMEN: A RANDOM COLON B COLON, CLAUDIA-TERMINAL ILEUM x3 GROSS DESCRIPTION: All parts labelled with patient name and [id number] A. Received in formalin labeled random colon are 4 correa tissue fragments measuring 0.4 x 0.2 to 0.4 x 0.3 cm greatest dimension. TS-1 B. Received in formalin labeled colon, neoterminal ileum x 3 are 3 correa tissue fragments measuring 0.2 x 0.1 to 0.4 x 0.2 cm greatest dimension. Smallest fragment may not survive processing. TS-1 Devi Galindo, Grossing Fire Warden/ Dr. Dm Hagan, Pathologist Performed by Devi Galindo MICROSCOPIC DESCRIPTION: The microscopic examination is performed, except in the case of Gross Only. Verified by Pathology Report verified by [facility] ISIAH CARROLL Sign out Date: 03/03/2025 12:11 Performing Lab: [facility], [address] [place] [id number] [place] [address] Pathology Dept Disclaimer If ancillary studies were utilized, the following Laboratory Developed Test (LDT) disclaimer will apply: Under CLIA requirements, [facility] is qualified to perform high complexity testing. For all ancillary stains, positive and negative controls stain appropriately. Performance characteristics of immunohistochemical and chromogenic in-situ hybridization tests have been determined by [facility]. These tests are used for clinical purposes, They should not be regarded as investigational or for research. CNOV Observed: 02/24/2025 11:00 AM Status: COMPLETED Source: [facility] Office Visit ([facility]) CINDY COYLE ([id number]) 1950 F Date Time Provider Department 02/24/25 11:00 AM MONTY [facility] During your visit today, we recorded the following information about you: Pulse Respiration Blood pressure Weight 72/minute 15/minute 114/66 94.8 kg Height 1.575 m Monty Webster MD 02/24/2025 11:49 AM Signed Heart [facility] V[facility] [place] [facility] SECTION OF HEART FAILURE and CARDIAC TRANSPLANT MEDICINE OUTPATIENT VISIT DATE February 24, 2025 OUTPATIENT VISIT TYPE Established Patient PRIMARY CARE PHYSICIAN: [place] [address] CHIEF COMPLAINT: Feeling better NURSING INTAKE (Patient?s concerns and/or recent hospitalizations/ER visits): HF Nursing Assessment: Interim Hospitalizations and/or ER visits:no Chest Pain: no Skipping or irregular heartbeats: no Shortness of breath at rest: no Shortness of breath with activity: yes with exertion Cough: no Waking up in the middle of the night gasping for air: no Lightheadedness or dizziness: no Feeling like you are going to pass out: no Actually passing out: no Poor energy level: no Unintentional weight gain: no Unintentional weight loss: no Swelling in your legs,feet, abdomen: legs/feet Filling up quickly when you eat: no HISTORY OF PRESENT ILLNESS: 74 yo female with pmh of chronic HFrEF (NICMY, LVEF 26%) s/p BiV and subsequent LBB pacing, ESRD On HD, hx of restrictive pulmonary disease who presents for evaluation of her cardiomyopathy. She is unsure of her medical history. She was told she had an abnormal heart rhythm and underwent ELECTRONICS TESTER-P pacing in 2017. It seems she had complete heart block during that initial evaluation. She was unsure if there were any issues with her heart until she presented to [facility] for renal transplant evaluation. Her renal history showed normal renal function until 04/2021 where she was admitted and found to have eGFR of 8. She was started on HD. Renal biopsy reportedly performed but did not show any significant findings. She has been on HD since. Now she presents for worsening LVEF. She was seen by Drs. Jensen and Giovany for her cardiac issues. She recently underwent revision of her ELECTRONICS TESTER to LBB pacing instead given ongoing dyssynchrony despite proper CS lead placement. She is unable to tolerate GDMT due to hypotension (started on valsartan and now on 20mg on off HD days). She was recently placed on prednisone due to a concern for sarcoidosis given persistent hypercalcemia. With prednisone, her calcium has improved. Since last visit, patient reports persistent swelling in her legs and feet, particularly around the knees and ankles, since her last surgery. The swelling improves slightly after dialysis sessions, but she feels that not enough fluid is being removed. She notes that her blood pressure has improved, consistently remaining above 100 mmHg, and no longer drops significantly during dialysis. She denies experiencing any episodes of tachycardia recently. She has a history of multiple episodes of severe bleeding while on Eliquis, which led to hospitalizations and endoscopic evaluations revealing cancer and a perforation. She is scheduled for upper and lower endoscopies next week to assess for any ongoing sources of bleeding. She is currently not on any anticoagulation therapy. She reports a decrease in activity levels and uses a walker, attributing this to a recent hospitalization. She also mentions a significant decrease in appetite over the past year, leading to reduced oral intake. She is currently on bisoprolol and requests a refill. She previously took losartan and inquires about restarting it. She is on a thrice-weekly hemodialysis schedule (Friday, Friday, Friday) and is scheduled for a vascular surgery consultation next week to address a non-functional graft and discuss the creation of a new fistula. Recent echocardiogram results show a decrease in LVEF to 25-30% from a previous 35-40%, and increased calcification of the aortic valve. Her most recent hemoglobin level was 9 g/dL, down from 12 g/dL, following a complication with her graft. She received an erythropoiesis-stimulating agent during dialysis to address anemia. PAST MEDICAL HISTORY Diagnosis Date Anemia Atrial fibrillation ([facility]) 05/2024 Biventricular ICD (implantable cardioverter-defibrillator) in place 12/2022 new RV and LBB pace/sense lead, upgrade BiV ICD, RA and CS (previously placed) were inserted in RA, CS ports, new left bundle lead was placed to RV pace/sense port, distal coil ICD pin was placed to distal coil port, proximal coil ICD port was plugged, old RV lead was capped, ICD lead pace/sense terminal pin was capped. Chronic venous insufficiency Diverticulitis DM2 (diabetes mellitus, type 2) ([facility]) ESRD (end stage renal disease) on dialysis ([facility]) 04/27/2021 History of restrictive pulmonary disease HTN (hypertension) Obesity Secondary hyperparathyroidism of renal origin ([facility]) UTI (urinary tract infection) PAST SURGICAL HISTORY Procedure Laterality Date AV FISTULA PLACEMENT HX Right CARDIAC PACEMAKER PLACEMENT HX 02/04/2017 LAPAROSCOPIC CHOLECYSTECTOMY 03/13/2012 RIGHT HEART CATHERIZATION 03/29/2015 TONSILLECTOMY AND ADENOIDECTOMY <AGE 13 SOCIAL HISTORY Social History Tobacco Use Smoking status: Former Current packs/day: 0.00 Average packs/day: 1 pack/day for 20.0 years (20.0 ttl pk-yrs) Types: Cigarettes Start date: 1959 Quit date: 1979 Years since quittin.4 Smokeless tobacco: Never Vaping Use Vaping status: Never Used Substance Use Topics Alcohol use: Not Currently Drug use: Never FAMILY HISTORY Problem Relation Age of Onset Heart disease Mother Heart disease Father Diabetes Father ALLERGIES: ALLERGIES Allergen Reactions Ibuprofen Mental Status Change, Other: See Comments Tricyclic Antidepre* Contraindication-Medical Surgical Doxycycline Unknown Fluoxetine Unknown Metoprolol Unknown Tetracyclic Antidep* Other: See Comments palpitations CURRENT MEDICATIONS: bisoprolol (ZEBETA) 5 mg tabletTake 0.5 tablets by mouth four times a week.Disp: 90 tabletRfl: [address] (PROTONIX) 40 mg tabletTake 1 tablet by mouth every afternoon.Disp: Rfl: predniSONE (DELTASONE) 10 mg tabletTake 1 tablet by mouth once daily.Disp: 30 tabletRfl: 5 midodrine (PROAMATINE) 10 mg tabletTAKE ONE TABLET BY MOUTH EVERY DAY mon/fri/fri ON dialysis DAYS prior TO dialysisDisp: Rfl: folic acid/vit B complex and C (DIALYVITE 800 ORAL)Take 800 mg by mouth once daily.Disp: Rfl: sucroferric oxyhydroxide (VELPHORO) 500 mg chewTake 500 mg by mouth three times daily with meals.Disp: Rfl: brimonidine (ALPHAGAN P) 0.1 % dropUse 1 Drop in the right eye twice daily.Disp: Rfl: fluorometholone (FML LIQUID FILM) 0.1 % ophthalmic suspensionUse 1 Drop in both eyes every other day.Disp: Rfl: REVIEW OF SYSTEMS: CONSTITUTION: Negative for: Weight loss or gain, Fever. Chills, Night sweats HEENT: Negative for: Hearing loss, Nosebleeds, Mouth sores, Trouble swallowing, Dry mouth RESPIRATORY: Negative for: Cough, Difficulty breathing GASTROINTESTINAL: Negative for: Melena, Diarrhea, Nausea, Abdominal distension, Early satiety MUSCULOSKELETAL: Negative for: Arthralgias, Myalgias NEUROLOGICAL: Negative for: Headaches, Dizziness SKIN: Negative for: Rash EYES: Negative for: Vision disturbance CARDIOVASCULAR: Positive for: Leg swelling Negative for: Chest pain, Arrhythmia and Pre-syncope GENITOURINARY: Negative for: Difficulty urinatiing PATIENT ENTERED DATA: 04/26/2024 05/31/2024 08/29/2024 KCCQ-12 Scores Physical Limitation Score 25 (Class III Heart Failure ) 25 (Class III Heart Failure ) 25 (Class III Heart Failure ) Symptom Frequency Score Incomplete 54.17 (Class III Heart Failure ) Incomplete Quality of Life Score 37.5 (Poor to Fair Quality of Life) 25 (Poor to Fair Quality of Life) Incomplete Social Limitation Score Incomplete 83.33 (Class II Heart Failure) Incomplete Overall Summary Score Incomplete 46.88 (Class III Heart Failure ) Incomplete 04/26/2024 05/31/2024 12/16/2024 PHQ-9 Score 0 2 3 2 2 Multiple values from one day are sorted in reverse-chronological order 09/24/2023 04/26/2024 12/16/2024 PROMIS Global Health - (T-Scores - the mean of general population = 50. Five points is a clinically meaningful difference.) Physical T-Score 50.8 50.8 47.7 Mental T-Score 48.3 48.3 48.3 53.3 Multiple values from one day are sorted in reverse-chronological order PHYSICAL EXAMINATION: BP 114/66 Pulse 72 Resp 15 Ht 157.5 cm (5' 2) Wt 94.8 kg (209 lb) SpO2 98% BMI 38.23 kg/m? General: Well appearing, in no acute distress. Skin: No clubbing, no cyanosis. Eyes: Extra ocular movements intact Oropharynx: Teeth in good repair. Neck: jugular venous distention (mid neck with HJR), no carotid bruits, carotids have a normal upstroke, no palpable thyromegaly. Lungs: Clear to auscultation bilaterally, no wheezing or rhonchi. Heart: Regular rhythm, PMI not displaced, S1, S2 normal, no S3, no S4, no heaves, no rub and systolic murmur at RUSB. Abdomen: Soft, nontender, bowel sounds normal, no palpable organomegaly, no bruits. Extremities: 2+ peripheral edema . Grade 2/4 distal pulses bilaterally. Neuro: Oriented to person, place and time, alert, cooperative, gait coordinated. CARDIOVASCULAR MEDICINE TESTING: I have personally reviewed the Echocardiogram. Last ECHO Result Conclusion ECHO Collected: 02/05/2024 3:35 PM (Final result) Impression: CONCLUSIONS: - Technically difficult exam due to body habitus and due to restless leg. - Exam indication: H/O Heart Failure - The left ventricle is severely dilated. Left ventricular systolic function is moderately decreased. EF = 37 ? 5% (2D biplane) Left ventricular diastolic function was not evaluated due to >2+ MR. - The right ventricle is normal in size. Right ventricular systolic function is low normal. - The left atrial cavity is severely dilated. - There is moderate (2+) mitral valve regurgitation due to restricted leaflet motion. - Tricuspid aortic valve. There is moderate aortic valve stenosis caused by calcified valve and restricted opening. AV area is 1.01 cm? (0.49 cm?/m?) by continuity, VTI. The peak gradient is 38 mmHg, the mean gradient is 20 mmHg and the dimensionless valve index is 0.22. Prior peak/mean gradients of 39/19 mmHg, DI 0.28. AV morphology best seen in clips 20-21. - Exam was compared with the prior CC echocardiographic exam performed on 09/25/2023. Decrease in RVSP (prior RVSP of 49 mmHg). Prior reported LVEF 25% though appears similar on [id number] review. * * * Final * * * Last EKG Result Conclusion ECG COMPLETE Collected: 12/23/2024 12:23 PM (Final result) Impression: SINUS RHYTHM WITH OCCASIONAL PREMATURE VENTRICULAR COMPLEXES VENTRICULAR-PACED RHYTHM NONSPECIFIC INTRAVENTRICULAR BLOCK POSSIBLE RIGHT VENTRICULAR HYPERTROPHY POSSIBLE ANTEROLATERAL INFARCTION , AGE UNDETERMINED INFERIOR T WAVE ABNORMALITY ABNORMAL ECG Confirmed by MOHAN GARCIA M.D. ([id number]) on 01/13/2025 3:45:03 PM IMPRESSION: NYHA Functional Class: III Stage: C heart failure Heart Failure specific medications (list current, note updates or changes, note prior intolerance): BB: bisoprolol 2.5mg daily ACEI/ARB/ARNI: start losartan 12.5mg daily MRA: * SGLT2: * Diuretic: * Digoxin: * Vasodilators: * Anti-arrhythmics: Ivabradine: * Other anti-HTN: * PLAN AND RECOMMENDATIONS: 74 yo female with pmh of chronic HFrEF (NICMY, LVEF 26%) s/p BiV and subsequent LBB pacing, ESRD On HD, hx of restrictive pulmonary disease who presents for evaluation of her cardiomyopathy. Chronic HFrEF NICMY Hx of VT Hx of CHB s/p ELECTRONICS TESTER and now LBB pacing ERSD on HD (MWF) Restrictive lung disease epic professional-PH (mean PA of 53, TPG 28, PVR 4.7) - Who group 2 and possibly 3 GI bleed - colon ca s/p R Hemicolectomy and repeat bleed at anastomosis AF - previously on AC - stopped due to GI bleeding Has felt better and now taking bisoprolol regularly on non HD days. Will trial on losartan to see if BP can tolerate on non HD days. Her aortic valve seems to have progressive calcification. Will plan to refer to TAVR team for evaluation. Significant bleeding on apixiban. Will have her scopes done and will reassess if we can start warfarin for potential Watchman. We did discuss referral to our palliative care team given her chronic medical issues (goal of not transitioning to hospice but for ongoing follow up). However, she will need to think this over. Recommendations: Start losartan 12.5mg on non HD days. Will discuss with HD forensic computer examiner. Return in 6 months. I personally interviewed, confirmed and edited the above information as obtained by others I personally spent 30 minutes in total time involved in the management and care of this patient. We discussed natural history of disease, current treatment options, and future potential treatment options. We discussed diet, exercise, other non-medical management as above. Monty Webster MD [facility] Section Of Heart Failure and Cardiac Transplant Medicine Heart [facility] Vascular [facility] Desk [address] [place] [address] Monty Webster MD 02/24/2025 11:35 AM Addendum Thank you for visiting the [facility] at the [facility]. Here are your instructions. 1. Start losartan 12.5mg after HD session tomorrow. 2. Let me know how your scopes go and see if we can start warfarin (coumadin) in the future. 3. Return in 6 months. Will follow up on your echo to see if we need to formally evaluate your aortic valve. Please call with questions or concerns. Office: [phone] Monty Webster MD Referring Provider: MONTY WEBSTER [[id number]] Allergies As of Date: 02/24/2025 Noted Allergy Reaction IBUPROFEN 05/17/2021 1 - Mental Status Change 14 - Other: See Comments TRICYCLIC ANTIDEPRESSANTS AND TRI*05/31/2021 15 - Contraindication-Medical [place]* DOXYCYCLINE 02/26/2024 16 - Unknown FLUOXETINE 02/26/2024 16 - Unknown METOPROLOL 02/26/2024 16 - Unknown TETRACYCLIC ANTIDEPRESSANTS 08/08/2022 14 - Other: See Comments Comments: palpitations Date Reviewed: 02/24/2025 Reviewed by: Kathleen Cotter MA - Fully Assessed Reason for Visit: Follow Up [171] Primary Visit Diagnosis:Chronic atrial fibrillation (HCC) [I48.20] Other Visit Diagnosis:Chronic HFrEF (heart failure with reduced ejection fraction) (HCC) [I50.22] Order(s):CARDIOVASCULAR MEDICINE OP FOLLOW UP APPT ORDER [[id number]] Order #: [id number]: 1 losartan (COZAAR) 25 mg tabletTake 0.5 tablets by mouth once daily.Disp: 45 tabletRfl: 3 bisoprolol (ZEBETA) 5 mg tabletTake 0.5 tablets by mouth four times a week.Disp: 45 tabletRfl: 3 Prescriptions as of 02/24/2025 - losartan (COZAAR) 25 mg tablet Take 0.5 tablets by mouth once daily. - bisoprolol (ZEBETA) 5 mg tablet Take 0.5 tablets by mouth four times a week. - pantoprazole DR (PROTONIX) 40 mg tablet Take 1 tablet by mouth every afternoon. - predniSONE (DELTASONE) 10 mg tablet Take 1 tablet by mouth once daily. - midodrine (PROAMATINE) 10 mg tablet TAKE ONE TABLET BY MOUTH EVERY DAY mon/wed/fri ON dialysis DAYS prior TO dialysis - folic acid/vit B complex and C (DIALYVITE 800 ORAL) Take 800 mg by mouth once daily. - sucroferric oxyhydroxide (VELPHORO) 500 mg chew Take 500 mg by mouth three times daily with meals. - brimonidine (ALPHAGAN P) 0.1 % drop Use 1 Drop in the right eye twice daily. - fluorometholone (FML LIQUID FILM) 0.1 % ophthalmic suspension Use 1 Drop in both eyes every other day. 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 Here are your instructions. 1. Start losartan 12.5mg after HD session tomorrow. 2. Let me know how your scopes go and see if we can start warfarin (coumadin) in the future. 3. Return in 6 months. Will follow up on your echo to see if we need to formally evaluate your aortic valve. Please call with questions or concerns. Office: [phone] Monty Webster MD Prescriptions ordered this encounter Disp Refills Start End LOSARTAN 25 MG TABLET 45 t* 3 02/24/2025 Route: ORAL Sig: Take 0.5 tablets by mouth once daily. BISOPROLOL FUMARATE 5 MG TABLET 45 t* 3 02/24/2025 Route: ORAL Sig: Take 0.5 tablets by mouth four times a week. Medications Discontinued During This Encounter Prescriptions - bisoprolol (ZEBETA) 5 mg tablet (Discontinued) Take 0.5 tablets by mouth four times a week. Letter Text Encounter Status:Closed by MONTY WEBSTER on 02/24/25 PROGRESS Observed: 02/24/2025 11:00 AM Status: COMPLETED Source: [facility] ID: [id number] Author: MONTY WEBSTER MD Service: ? Author Type: Physician Type: Progress Notes Filed: 02/24/2025 11:49 Note Text: Heart [facility] [place] [facility] SECTION OF HEART FAILURE and CARDIAC TRANSPLANT MEDICINE OUTPATIENT VISIT DATE February 24, 2025 OUTPATIENT VISIT TYPE Established Patient PRIMARY CARE PHYSICIAN: Khloe Pabon [id number] [place] [address] CHIEF COMPLAINT: Feeling better NURSING INTAKE (Patient?s concerns and/or recent hospitalizations/ER visits): HF Nursing Assessment: Interim Hospitalizations and/or ER visits:no Chest Pain: no Skipping or irregular heartbeats: no Shortness of breath at rest: no Shortness of breath with activity: yes with exertion Cough: no Waking up in the middle of the night gasping for air: no Lightheadedness or dizziness: no Feeling like you are going to pass out: no Actually passing out: no Poor energy level: no Unintentional weight gain: no Unintentional weight loss: no Swelling in your legs,feet, abdomen: legs/feet Filling up quickly when you eat: no HISTORY OF PRESENT ILLNESS: 74 yo female with pmh of chronic HFrEF (NICMY, LVEF 26%) s/p BiV and subsequent LBB pacing, ESRD On HD, hx of restrictive pulmonary disease who presents for evaluation of her cardiomyopathy. She is unsure of her medical history. She was told she had an abnormal heart rhythm and underwent ELECTRONICS TESTER-P pacing in 2017. It seems she had complete heart block during that initial evaluation. She was unsure if there were any issues with her heart until she presented to [facility] for renal transplant evaluation. Her renal history showed normal renal function until 04/2021 where she was admitted and found to have eGFR of 8. She was started on HD. Renal biopsy reportedly performed but did not show any significant findings. She has been on HD since. Now she presents for worsening LVEF. She was seen by Drs. Jensen and Giovany for her cardiac issues. She recently underwent revision of her ELECTRONICS TESTER to LBB pacing instead given ongoing dyssynchrony despite proper CS lead placement. She is unable to tolerate GDMT due to hypotension (started on valsartan and now on 20mg on off HD days). She was recently placed on prednisone due to a concern for sarcoidosis given persistent hypercalcemia. With prednisone, her calcium has improved. Since last visit, patient reports persistent swelling in her legs and feet, particularly around the knees and ankles, since her last surgery. The swelling improves slightly after dialysis sessions, but she feels that not enough fluid is being removed. She notes that her blood pressure has improved, consistently remaining above 100 mmHg, and no longer drops significantly during dialysis. She denies experiencing any episodes of tachycardia recently. She has a history of multiple episodes of severe bleeding while on Eliquis, which led to hospitalizations and endoscopic evaluations revealing cancer and a perforation. She is scheduled for upper and lower endoscopies next week to assess for any ongoing sources of bleeding. She is currently not on any anticoagulation therapy. She reports a decrease in activity levels and uses a walker, attributing this to a recent hospitalization. She also mentions a significant decrease in appetite over the past year, leading to reduced oral intake. She is currently on bisoprolol and requests a refill. She previously took losartan and inquires about restarting it. She is on a thrice-weekly hemodialysis schedule (Friday, Friday, Friday) and is scheduled for a vascular surgery consultation next week to address a non-functional graft and discuss the creation of a new fistula. Recent echocardiogram results show a decrease in LVEF to 25-30% from a previous 35-40%, and increased calcification of the aortic valve. Her most recent hemoglobin level was 9 g/dL, down from 12 g/dL, following a complication with her graft. She received an erythropoiesis-stimulating agent during dialysis to address anemia. PAST MEDICAL HISTORY Diagnosis Date Anemia Atrial fibrillation (HCC) 05/2024 Biventricular ICD (implantable cardioverter-defibrillator) in place 12/2022 new RV and LBB pace/sense lead, upgrade BiV ICD, RA and CS (previously placed) were inserted in RA, CS ports, new left bundle lead was placed to RV pace/sense port, distal coil ICD pin was placed to distal coil port, proximal coil ICD port was plugged, old RV lead was capped, ICD lead pace/sense terminal pin was capped. Chronic venous insufficiency Diverticulitis DM2 (diabetes mellitus, type 2) ([facility]) ESRD (end stage renal disease) on dialysis (HCC) 04/27/2021 History of restrictive pulmonary disease HTN (hypertension) Obesity Secondary hyperparathyroidism of renal origin (HCC) UTI (urinary tract infection) PAST SURGICAL HISTORY Procedure Laterality Date AV FISTULA PLACEMENT HX Right CARDIAC PACEMAKER PLACEMENT HX 02/04/2017 LAPAROSCOPIC CHOLECYSTECTOMY 03/13/2012 RIGHT HEART CATHERIZATION 03/29/2015 TONSILLECTOMY AND ADENOIDECTOMY <AGE 13 SOCIAL HISTORY Social History Tobacco Use Smoking status: Former Current packs/day: 0.00 Average packs/day: 1 pack/day for 20.0 years (20.0 ttl pk-yrs) Types: Cigarettes Start date: 1959 Quit date: 1979 Years since quittin.4 Smokeless tobacco: Never Vaping Use Vaping status: Never Used Substance Use Topics Alcohol use: Not Currently Drug use: Never FAMILY HISTORY Problem Relation Age of Onset Heart disease Mother Heart disease Father Diabetes Father ALLERGIES: ALLERGIES Allergen Reactions Ibuprofen Mental Status Change, Other: See Comments Tricyclic Antidepre* Contraindication-Medical Surgical Doxycycline Unknown Fluoxetine Unknown Metoprolol Unknown Tetracyclic Antidep* Other: See Comments palpitations CURRENT MEDICATIONS: bisoprolol (ZEBETA) 5 mg tabletTake 0.5 tablets by mouth four times a week.Disp: 90 tabletRfl: [address] (PROTONIX) 40 mg tabletTake 1 tablet by mouth every afternoon.Disp: Rfl: predniSONE (DELTASONE) 10 mg tabletTake 1 tablet by mouth once daily.Disp: 30 tabletRfl: 5 midodrine (PROAMATINE) 10 mg tabletTAKE ONE TABLET BY MOUTH EVERY DAY mon/fri/fri ON dialysis DAYS prior TO dialysisDisp: Rfl: folic acid/vit B complex and C (DIALYVITE 800 ORAL)Take 800 mg by mouth once daily.Disp: Rfl: sucroferric oxyhydroxide (VELPHORO) 500 mg chewTake 500 mg by mouth three times daily with meals.Disp: Rfl: brimonidine (ALPHAGAN P) 0.1 % dropUse 1 Drop in the right eye twice daily.Disp: Rfl: fluorometholone (FML LIQUID FILM) 0.1 % ophthalmic suspensionUse 1 Drop in both eyes every other day.Disp: Rfl: REVIEW OF SYSTEMS: CONSTITUTION: Negative for: Weight loss or gain, Fever. Chills, Night sweats HEENT: Negative for: Hearing loss, Nosebleeds, Mouth sores, Trouble swallowing, Dry mouth RESPIRATORY: Negative for: Cough, Difficulty breathing GASTROINTESTINAL: Negative for: Melena, Diarrhea, Nausea, Abdominal distension, Early satiety MUSCULOSKELETAL: Negative for: Arthralgias, Myalgias NEUROLOGICAL: Negative for: Headaches, Dizziness SKIN: Negative for: Rash EYES: Negative for: Vision disturbance CARDIOVASCULAR: Positive for: Leg swelling Negative for: Chest pain, Arrhythmia and Pre-syncope GENITOURINARY: Negative for: Difficulty urinatiing PATIENT ENTERED DATA: 04/26/2024 05/31/2024 08/29/2024 KCCQ-12 Scores Physical Limitation Score 25 (Class III Heart Failure ) 25 (Class III Heart Failure ) 25 (Class III Heart Failure ) Symptom Frequency Score Incomplete 54.17 (Class III Heart Failure ) Incomplete Quality of Life Score 37.5 (Poor to Fair Quality of Life) 25 (Poor to Fair Quality of Life) Incomplete Social Limitation Score Incomplete 83.33 (Class II Heart Failure) Incomplete Overall Summary Score Incomplete 46.88 (Class III Heart Failure ) Incomplete 04/26/2024 05/31/2024 12/16/2024 PHQ-9 Score 0 2 3 2 2 Multiple values from one day are sorted in reverse-chronological order 09/24/2023 04/26/2024 12/16/2024 PROMIS Global Health - (T-Scores - the mean of general population = 50. Five points is a clinically meaningful difference.) Physical T-Score 50.8 50.8 47.7 Mental T-Score 48.3 48.3 48.3 53.3 Multiple values from one day are sorted in reverse-chronological order PHYSICAL EXAMINATION: BP 114/66 Pulse 72 Resp 15 Ht 157.5 cm (5' 2) Wt 94.8 kg (209 lb) SpO2 98% BMI 38.23 kg/m? General: Well appearing, in no acute distress. Skin: No clubbing, no cyanosis. Eyes: Extra ocular movements intact Oropharynx: Teeth in good repair. Neck: jugular venous distention (mid neck with HJR), no carotid bruits, carotids have a normal upstroke, no palpable thyromegaly. Lungs: Clear to auscultation bilaterally, no wheezing or rhonchi. Heart: Regular rhythm, PMI not displaced, S1, S2 normal, no S3, no S4, no heaves, no rub and systolic murmur at RUSB. Abdomen: Soft, nontender, bowel sounds normal, no palpable organomegaly, no bruits. Extremities: 2+ peripheral edema . Grade 2/4 distal pulses bilaterally. Neuro: Oriented to person, place and time, alert, cooperative, gait coordinated. CARDIOVASCULAR MEDICINE TESTING: I have personally reviewed the Echocardiogram. Last ECHO Result Conclusion ECHO Collected: 02/05/2024 3:35 PM (Final result) Impression: CONCLUSIONS: - Technically difficult exam due to body habitus and due to restless leg. - Exam indication: H/O Heart Failure - The left ventricle is severely dilated. Left ventricular systolic function is moderately decreased. EF = 37 ? 5% (2D biplane) Left ventricular diastolic function was not evaluated due to >2+ MR. - The right ventricle is normal in size. Right ventricular systolic function is low normal. - The left atrial cavity is severely dilated. - There is moderate (2+) mitral valve regurgitation due to restricted leaflet motion. - Tricuspid aortic valve. There is moderate aortic valve stenosis caused by calcified valve and restricted opening. AV area is 1.01 cm? (0.49 cm?/m?) by continuity, VTI. The peak gradient is 38 mmHg, the mean gradient is 20 mmHg and the dimensionless valve index is 0.22. Prior peak/mean gradients of 39/19 mmHg, DI 0.28. AV morphology best seen in clips 20-21. - Exam was compared with the prior CC echocardiographic exam performed on 09/25/2023. Decrease in RVSP (prior RVSP of 49 mmHg). Prior reported LVEF 25% though appears similar on urqm-jl-[id number] review. * * * Final * * * Last EKG Result Conclusion ECG COMPLETE Collected: 12/23/2024 12:23 PM (Final result) Impression: SINUS RHYTHM WITH OCCASIONAL PREMATURE VENTRICULAR COMPLEXES VENTRICULAR-PACED RHYTHM NONSPECIFIC INTRAVENTRICULAR BLOCK POSSIBLE RIGHT VENTRICULAR HYPERTROPHY POSSIBLE ANTEROLATERAL INFARCTION , AGE UNDETERMINED INFERIOR T WAVE ABNORMALITY ABNORMAL ECG Confirmed by MOHAN GARCIA M.D. ([id number]) on 01/13/2025 3:45:03 PM IMPRESSION: NYHA Functional Class: III Stage: C heart failure Heart Failure specific medications (list current, note updates or changes, note prior intolerance): BB: bisoprolol 2.5mg daily ACEI/ARB/ARNI: start losartan 12.5mg daily MRA: * SGLT2: * Diuretic: * Digoxin: * Vasodilators: * Anti-arrhythmics: Ivabradine: * Other anti-HTN: * PLAN AND RECOMMENDATIONS: 74 yo female with pmh of chronic HFrEF (NICMY, LVEF 26%) s/p BiV and subsequent LBB pacing, ESRD On HD, hx of restrictive pulmonary disease who presents for evaluation of her cardiomyopathy. Chronic HFrEF NICMY Hx of VT Hx of CHB s/p ELECTRONICS TESTER and now LBB pacing ERSD on HD (MWF) Restrictive lung disease epic professional-PH (mean PA of 53, TPG 28, PVR 4.7) - Who group 2 and possibly 3 GI bleed - colon ca s/p R Hemicolectomy and repeat bleed at anastomosis AF - previously on AC - stopped due to GI bleeding Has felt better and now taking bisoprolol regularly on non HD days. Will trial on losartan to see if BP can tolerate on non HD days. Her aortic valve seems to have progressive calcification. Will plan to refer to TAVR team for evaluation. Significant bleeding on apixiban. Will have her scopes done and will reassess if we can start warfarin for potential Watchman. We did discuss referral to our palliative care team given her chronic medical issues (goal of not transitioning to hospice but for ongoing follow up). However, she will need to think this over. Recommendations: Start losartan 12.5mg on non HD days. Will discuss with HD forensic computer examiner. Return in 6 months. I personally interviewed, confirmed and edited the above information as obtained by others I personally spent 30 minutes in total time involved in the management and care of this patient. We discussed natural history of disease, current treatment options, and future potential treatment options. We discussed diet, exercise, other non-medical management as above. Monty Webster MD [facility] Section Of Heart Failure and Cardiac Transplant Medicine Heart and Vascular [facility] Desk [id number] [id number] ECHO Observed: 02/24/2025 10:12 AM Status: F Source: [facility] Echocardiography Report: Tra nsthoracic Echo [facility] J35 Date of service: 02/24/2025 10:12:17 AM Ordering physician: MONTY WEBSTER Indication: LV function Technologist: Michelle Richardson and Domingo Sanders Interpreting physician: Kobe Chiu MD PATIENT: Name: CINDY COYLE : 1950 Age: 74 years Gender: F History of hypertension, diabetes mellitus, heart failure with hospitalization and valvular heart disease. Previous cardiovascular interventions: Bi-V PPM (2022) Primary rhythm: sinus. Secondary rhythm: PVC. Height: 157.50 cm BSA: 2.04 m Weight: 95.16 kg BMI: 38.4 kg/m Heart rate 88 bpm Blood pressure 110/58 mmHg Technically difficult exam due to body habitus and suboptimal positioning. Color Doppler was utilized to interrogate the cardiac valves assessed and spectral Doppler was utilized to determine the flow velocities and pressure gradients reported in this exam. MEASUREMENTS: Value Indexed Normal Max aortic dimension 3.3 cm Ao < 3.8 Left atrial volume 108 ml (biplane A-L) 55 ml/m Michael <= 34 LV ID (diastole) 6.5 cm (2D) 3.17 cm/m LV ID (systole) 5.8 cm (2D) 2.86 cm/m IVS, leaflet tips 0.8 cm (2D) Posterior wall thickness 0.8 cm (2D) Left ventricular mass 210 g (2D) 103 g/m LV stroke volume 17 ml (2D 4-ch.) LVOT stroke volume 62 ml 32 ml/m LV end diastolic volume 163 ml (2D 4-ch.) 79.9 ml/m 29<=EDVi<62 LV end systolic volume 146 ml (2D 4-ch.) 71.7 ml/m Ejection Fraction 10 % (2D 4-ch.) EF > 54 FINDINGS: LEFT VENTRICLE The left ventricle is moderately dilated. Left ventricular systolic function is severely decreased. Left ventricular diastolic function was not evaluated due to an arrhythmia. Definity contrast used for endocardial border detection. Wall Motion: The anterior wall, entire lateral wall, anterior septum, entire inferior wall, mid inferoseptal segment, and basal inferoseptal segment are severely hypokinetic. The apical septal segment, apical anterior segment, and apex are mildly hypokinetic. RIGHT VENTRICLE The right ventricle is moderately dilated. Pacer wires are noted in the right ventricle. Right ventricular systolic function is moderately decreased. RV systolic tissue Doppler velocity is 5.0 cm/s. Tricuspid annular displacement is 1.4 cm. Estimated right ventricular systolic pressure is 52 mmHg consistent with moderate pulmonary hypertension. Estimated right atrial pressure is 8 mmHg based on IVC assessment. LEFT ATRIUM The left atrial cavity is severely dilated. RIGHT ATRIUM The right atrial cavity is normal in size. Pacer wires are noted in the right atrium. Inferior Vena Cava: The inferior vena cava appears normal measuring 2.0 cm. The vessel decreases less than 50 percent with inspiration. MITRAL VALVE There is moderately severe (3+) holosystolic mitral valve regurgitation due to apical tethering of normal mitral leaflet caused by LV enlargement. There is moderate thickening of the anterior and posterior mitral leaflets. Regurgitant orifice area (PISA) is 0.30 cm . TRICUSPID VALVE There is moderate (2+ - 3+) tricuspid valve regurgitation caused by annular dilatation. There is no thickening. The hepatic venous pattern showed reversed systolic flow. AORTIC VALVE There is moderate aortic valve stenosis caused by calcified valve and restricted opening. There is trace aortic valve regurgitation. There is moderate thickening. There is moderate calcification. The peak gradient is 25 mmHg (peak velocity = 250.3 cm/s). The mean gradient is 12 mmHg. The LVOT mean velocity is 81.2 cm/s. The LVOT diameter is 2.0 cm. The aortic VTI is 45.9 cm. The mean velocity in the aortic valve is 160.4 cm/s. The dimensionless valve index is 0.43. AV area is 1.35 cm (0.66 cm / m ) by continuity, VTI. The LVOT stroke volume index is 32 ml/m . PULMONIC VALVE There is mild (1+) pulmonic valve regurgitation. There is no thickening. AORTA The visualized aorta is normal in size. Measurements - Aortic valve annulus 2.0 cm. Sinus: 2.8 cm. Sinotubular junction 2.0 cm. Mid ascending aorta 3.3 cm. INTERATRIAL SEPTUM There is no evidence of intracardiac shunting as detected by Doppler. INTERVENTRICULAR SEPTUM There is abnormal motion of the interventricular septum secondary to a pacemaker. There is no systolic flattening, but there is diastolic flattening of the interventricular septum consistent with RV volume overload. There is no flow through the interventricular septum as detected by Doppler. PERICARDIUM There is no pericardial effusion. CONCLUSIONS: - Technically difficult exam due to body habitus and suboptimal positioning. - Exam indication: LV function - The left ventricle is moderately dilated. Left ventricular systolic function is severely decreased. EF = 10 5% (2D 4-ch.) Definity contrast used for endocardial border detection. Left ventricular diastolic function was not evaluated due to an arrhythmia. - The right ventricle is moderately dilated. Right ventricular systolic function is moderately decreased. FAC: 22.0% - The left atrial cavity is severely dilated. - There is moderately severe (3+) mitral holosystolic valve regurgitation due to apical tethering of normal mitral leaflet caused by LV enlargement. Regurgitant orifice area (PISA) is 0.30 cm . - There is moderate (2+ - 3+) tricuspid valve regurgitation caused by annular dilatation. - There is moderate aortic valve stenosis caused by calcified valve and restricted opening. AV area is 1.35 cm (0.66 cm / m ) by continuity, VTI. The peak gradient is 25 mmHg, the mean gradient is 12 mmHg and the dimensionless valve index is 0.43. - Previous AV gradients 37/20mmHg. - Estimated right ventricular systolic pressure is 52 mmHg consistent with moderate pulmonary hypertension. Estimated right atrial pressure is 8 mmHg based on IVC assessment. - Exam was compared with the prior CC echocardiographic exam performed on 02/05/2024. Lower LVEF today, lower gradients across the AV, and RVSP is increased to 52 mmHg, from 31 mmHg. The aortic stenosis severity may be underestimated due poor left ventricular function. The valve leaflet motion and morphology (clip 23) is consistent with severe aortic stenosis. Consider additional evaluation if clinically indicate. * * * Final * * * CC Formula XO Medical Image : [id number] Observed: 02/24/2025 10:00 AM Status: COMPLETED Source: [facility] Office Visit (PERVMN) CINDY COYLE ([id number]) 1950 F Date Time Provider Department 02/24/25 10:00 AM LV MECHANICS ECHO J3-5 PERVMN During your visit today, we recorded the following information about you: Referring Provider: MONTY WEBSTER [[id number]] Allergies As of Date: 02/24/2025 Noted Allergy Reaction IBUPROFEN 05/17/2021 1 - Mental Status Change 14 - Other: See Comments TRICYCLIC ANTIDEPRESSANTS AND TRI*05/31/2021 15 - Contraindication-Medical [place]* DOXYCYCLINE 02/26/2024 16 - Unknown FLUOXETINE 02/26/2024 16 - Unknown METOPROLOL 02/26/2024 16 - Unknown TETRACYCLIC ANTIDEPRESSANTS 08/08/2022 14 - Other: See Comments Comments: palpitations Date Reviewed: 12/23/2024 Reviewed by: Primitivo Cummins MA - Fully Assessed Visit Diagnosis:Non-ischemic cardiomyopathy (HCC) [I42.8] Order(s):ECHO [[id number]] Order #: [id number]: 1 [] perflutren lipid microspheres 1.3 mL in NaCl (PF) 0.9% 10 mL injection (DEFINITY)Disp: Rfl: sodium chloride 0.9 % (flush) 10 mL (BD POSIFLUSH)Disp: Rfl: Prescriptions as of 02/24/2025 - bisoprolol (ZEBETA) 5 mg tablet Take 0.5 tablets by mouth four times a week. - pantoprazole DR (PROTONIX) 40 mg tablet Take 1 tablet by mouth every afternoon. - predniSONE (DELTASONE) 10 mg tablet Take 1 tablet by mouth once daily. - midodrine (PROAMATINE) 10 mg tablet TAKE ONE TABLET BY MOUTH EVERY DAY mon/fri/fri ON dialysis DAYS prior TO dialysis - folic acid/vit B complex and C (DIALYVITE 800 ORAL) Take 800 mg by mouth once daily. - sucroferric oxyhydroxide (VELPHORO) 500 mg chew Take 500 mg by mouth three times daily with meals. - brimonidine (ALPHAGAN P) 0.1 % drop Use 1 Drop in the right eye twice daily. - fluorometholone (FML LIQUID FILM) 0.1 % ophthalmic suspension Use 1 Drop in both eyes every other day. 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] 10/29/2023 Atypical chest pain [R07.89] 05/28/2024 NICM (nonischemic cardiomyopathy) (HCC) [I42.8] 05/29/2024 Chronic systolic CHF (congestive heart failure)*05/29/2024 Equivocal stress test [R94.39] 05/30/2024 Chronic combined systolic and diastolic congest*05/30/2024 Atrial fibrillation (HCC) [I48.91] 05/2024 HTN (hypertension) [I10] Prescriptions ordered this encounter Disp Refills Start End PERFLUTREN LIPID MICROSPHERES 1.1 MG* 02/24/2025 02/24/2025 Route: INTRAVENOUS SODIUM CHLORIDE 0.9 % (FLUSH) INJECT* 02/24/2025 03/03/2025 Route: INTRAVENOUS Encounter Status:Closed by LASHAUN BUTLER on 02/24/25 BUN Collected: 1:00 PM Status: F Source: [facility] TYPE CODE TESTS RESULT OUT OF RANGE REFERENCE UNITS LAB BUN(LOINC) BUN 12 7 - 18 mg/dl Performed By: #### [id number] ## ## [address] [address] BUN Collected: 9:12 AM Status: F Source: [facility] TYPE CODE TESTS RESULT OUT OF RANGE REFERENCE UNITS LAB BUN(LOINC) BUN 34 High 7 - 18 mg/dl Performed By: #### [id number] ## ## [address] [address] HEP B SURFACE AG [CCL] Collected: 02/04/2025 9:12 AM Status: F Source: [facility] TYPE CODE TESTS RESULT OUT OF RANGE REFERENCE UNITS LAB HBSAG(LOINC) Hepatitis B Surf. Ag Negative Negative Result Comment: [facility] [address] [id number] Preston Griggs III, M.D. [id number] Performed By: #### [id number] ## ## [facility],[address] [place] [id number] CBC + DIFF Collected: 5 9:12 AM Status: F Source: [facility] TYPE CODE TESTS RESULT OUT OF RANGE REFERENCE UNITS LAB CBC + DIFF(LOINC) CBC + DIFF Result Comment: CBC-COMPLETE BLOOD COUNT LAB WBC(LOINC) WBC 6.0 4.5 - 10.8 x 10EE3/UL LAB RBC(LOINC) RBC 2.78 Low 4.10 - 5.30 x 10EE6/UL LAB HEMOGLOBIN(AMARILYS NC) HEMOGLOBIN 9.5 Low 12.0 - 16.0 g/dl LAB HEMATOCRIT(AMARILYS NC) HEMATOCRIT 28.4 Low 34.0 - 46.0 % LAB MCV(LOINC) MCV 102 High 80 - 99 fl LAB MCH(LOINC) MCH 34 High 27 - 33 pg LAB MCHC(LOINC) MCHC 33 32 - 36 X10 3 LAB RDW/CV(LOINC) RDW/CV 15.8 High 12.0 - 15.6 % LAB PLATELET(LOINC ) PLATELET 262 150 - 450 x10EE3/UL LAB MPV(LOINC) MPV 9.6 6.6 - 10.5 fl Result Comment: AUTOMATED DI FFERENTIAL LAB NEUT %(LOINC) NEUT % 67.8 46.0 - 76.0 % LAB LYMPH %(LOINC) LYMPH % 15.4 Low 20.0 - 45.0 % LAB MONOS %(LOINC) MONOS % 9.4 0.0 - 10.0 % LAB EO %(LOINC) EO % 6.7 0.0 - 7.0 % LAB BASO %(LOINC) BASO % 0.7 0.0 - 2.0 % LAB Lymph #(LOINC) Lymph # 0.92 0.80 - 2.80 x10EE 3/UL LAB Neut #(LOINC) Neut # 4.06 1.50 - 7.10 x10EE3 /UL LAB Ingham #(LOINC) Ingham # 0.56 0.20 - 1.00 x10EE3 /UL LAB EO #(LOINC) EO # 0.40 0.00 - 0.50 x10EE3/U L LAB Baso #(LOINC) Baso # 0.04 0.00 - 0.10 x10EE3 /UL LAB MANUAL DIFF(LOINC) MANUAL DIFF N/A LAB MORPHOLOGY(AMARILYS NC) MORPHOLOGY N/A Performed By: #### [id number] ## ## [facility],[address] [place] [address] POTASSIUM Collected: 9:12 AM Status: F Source: [facility] TYPE CODE TESTS RESULT OUT OF RANGE REFERENCE UNITS LAB POTASSIUM(INC) POTASSIUM 4.6 3.5 - 5.1 mmo l/L Performed By: #### [id number] ## ## [place] [id number] HBV SURFACE AG SER QL Collected: 02/04/2025 9:12 AM Status: F Source: [facility] Order Comment: Specimen Type : BLOOD SPECIMEN Ordering Facility: [facility] Address: [address] [place] [address] TYPE CODE TESTS RESULT OUT OF RANGE REFERENCE UNITS LAB 5195-3([facility]) HBV surface Ag Ser Ql Negative Negative Performed By: #### [id number] ## ## [facility] CLIA [id number] [address] [place] [address] [place] CNCO Observed: 01/27/2025 12:00 AM Status: COMPLETED Source: [facility] Letter Text IR TUNNELED HD Observed: 01/20/2025 12:00 PM Status: F Source: [facility] ORIGINAL PROCEDURE: Tunneled hemodialysis venous catheter placement with fluoroscopy and ultrasound PHYSIOLOGICAL CHEMIST: Carlton Bentley PA-C CLINICAL STATEMENT: Fistula with hematoma SITE OF PUNCTURE: Right internal jugular vein MATERIALS UTILIZED: MedComp 14.5 Fr Hemo-Flow double lumen catheter, 23 cm cuff to tip Probe cover Amplatz wire Micropuncture Glue 2-0 Ethibond ANESTHESIA: Local FLUORO: 3.1 minutes AIR KERMA DOSE: 81.92 mGy The procedure, risks, and alternatives, were discussed with the patient and all questions were answered. Written informed consent obtained. Accompanying paperwork was verified for accuracy. Directed history and physical exam performed prior to the procedure. Medication reconciliation performed by nursing personnel. Procedure was performed using a cap, mask, sterile gown, sterile gloves, a large sterile sheet, hand hygiene and hospital approved cutaneous antisepsis. The patient was positioned on the table and prepped and draped in usual sterile fashion. A critical pause was performed with assisting personnel just prior to the procedure with the patient's identity confirmed using 2 identifiers, confirming site and side. Ultrasound demonstrates a widely patent vein and an image was obtained. Ultrasound also demonstrates RIGHT chest wall without evidence of hematoma. Local anesthetic was administered at the puncture site for local anesthesia. After making a dermatotomy, dissection of tissues was performed to facilitate dilatation. The vein was cannulated under direct sonographic guidance with a micropuncture set. A wire was advanced into the IVC. The planned tunnel was anesthetized with lidocaine with epinephrine. After making a dermatotomy, the catheter was tunneled to the initial venous access site. After serial venous dilatation, a peel-away was sheath placed. The peel-away introducer and wire were removed and the catheter was inserted through the sheath. The peel-away sheath was removed. Both lumens aspirate and flush very quickly. Both lumens were flushed with saline. Sterile caps used by the HD unit were attached. Fluoroscopy demonstrates the catheter tip in the upper right atrium. A documentation fluoroscopic image obtained. The catheter was sutured to the skin. Sterile dressing was applied. The venous access incision was closed with glue and suture. COMPLICATIONS: None EBL: Minimal PATIENT CONDITION: Stable, unchanged. IMPRESSION: Successful placement of tunneled cuffed hemodialysis catheter. This procedure was performed by Carlton Betnley PA-C. REASON FOR HOSPITALIZATION: ESRD, Tunneled HD Catheter Placement OUTCOME: No acute complication. DISPOSITION: To prior residence. FOLLOW UP: With referring clinician and IR as needed. Interpreted by: Azar Barnes MD Preliminary Report By: Carlton Bentley Electronically signed By Azar Barnes MD Dictated Date: 01/20/2025 4:58:35 PM Prelim Date: 01/20/2025 5:00:35 PM Sign Date: 01/20/2025 10:28:55 PM Ordering Provider: CEDRIC LOPEZ IR ARTERIOGRAM-AV SHUNT FISTULOGRAM Observed: 01/20/2025 10:00 AM Status: F Source: [facility] ORIGINAL PROCEDURE: Hemodialysis graft evaluation with pharmacomechanical thrombolysis (declot) and angioplasty performed on 01/20/2025. INDICATION: ESRD. Thrombosed HD access. COMPARISON: None. TECHNIQUE/FINDINGS: The procedure was performed in the VIR Suite following informed consent and a Time Out. Local anesthesia was obtained using lidocaine. The right arm was prepped and draped in the usual sterile fashion. Procedure performed with all elements of maximal sterile barrier technique, hand hygiene, skin preparation, and sterile ultrasound techniques. There was no palpable thrill or pulsatile flow over the loop graft initially. Ultrasound was used to evaluate the hemodialysis circuit. There was no flow present. The arteriovenous anastomosis demonstrated no evidence of severe stenosis. Using ultrasound guidance, the right arm graft was accessed at the arterial end of the graft with a 21-G micropuncture needle directed toward the venous end of the graft. Using fluoroscopic guidance, a 0.018 inch guidewire was placed through the micropuncture needle. The needle was exchanged for a 5-F stiff micropuncture catheter. Thrombolytic therapy was then performed with the micropuncture catheter positioned within the clotted graft using a total of 4 mg tPA. The tPA was allowed to dwell within the graft for approximately 20 minutes. A 0.035 inch guidewire was advanced through the micropuncture catheter into the central veins. The micropuncture catheter was exchanged over the guidewire for a 6-F sheath. A 5-F Berenstein catheter was advanced through the sheath and contrast injected to evaluate the venous outflow. There was no evidence of central venous stenosis. There was diffusely small caliber of the venous outflow with severe focal stenosis at the venous anastomosis. Residual filling defects (clot) were present within the loop graft. Using fluoroscopic guidance, a 0.035 inch guidewire was advanced into the IVC. Angioplasty of the venous anastomosis was then performed using an 8 mm x 4 cm [employer] balloon. Additional angioplasty of the graft was performed in areas with residual filling defects (clot) in the graft. Clots within the graft were macerated with the balloon and pushed centrally. Post angioplasty venogram demonstrated marked improvement in the filling defects as well as the severe stenosis near the graft venous anastomosis. A second access directed toward the arterial end of the graft was obtained under direct ultrasound guidance. The graft was accessed with a 21-G needle. A 0.018 inch guidewire was advanced through the needle into the feeding artery. The needle was exchanged for the micropuncture catheter. A 0.035 inch guidewire was advanced across the AV anastomosis into the artery. The micropuncture catheter was exchanged for a sheath. Over the guidewire, a 4-F Angle [place] catheter was advanced across the arterial anastomosis. DSA demonstrated a widely patent AV anastomosis. Using fluoroscopic guidance, a 5.5-F Mini balloon was passed over the guidewire through the arterial anastomosis. The inflated balloon was used to sweep clots towards the central veins and clear the platelet plug. This resulted in catholic of flow to the graft. Post-intervention DSA revealed marked improvement of the stenoses of the venous anastomosis and near resolution of filling defects. The graft was patent and there was brisk radiographic flow through the graft. Each sheath was removed and hemostasis was achieved using manual compression. Each sheath site was dressed in the usual fashion. There was an excellent palpable thrill and pulsatile flow within the graft after the procedure. Sonographic evaluation the graft was also performed post intervention demonstrating patency and brisk flow. There were no immediate complications. Total Fluoroscopy Time: 16.5 minutes. Reference Air Kerma (JUJU): 132.07 mGy. Intra-Service Time (Moderate Sedation): 75 minutes. Patient Monitoring: I personally supervised and directed an independent trained observer who assisted in monitoring the patient's level of consciousness and physiological status throughout the procedure. IMPRESSION: 1. Technically successful pharmacomechanical thrombolysis (declot) of the right arm hemodialysis loop graft. 2. Severe focal stenosis of the venous anastomosis with successful angioplasty. Note: Patient returned from dialysis prior to accessing graft with arm swelling and developing hematoma. Hemostasis was achieved with manual compression, which ultimately resulted in recurrent thrombosis of the graft. Interpreted by: Azar Barnes MD Preliminary Report By: Azar Barnes MD Electronically signed By Azar Barnes MD Dictated Date: 02/07/2025 10:05:09 AM Prelim Date: 02/07/2025 10:56:43 AM Sign Date: 02/07/2025 10:56:43 AM Ordering Provider: CEDRIC PICKETT Observed: 01/13/2025 12:00 AM Status: COMPLETED Source: [facility] Telephone ([facility]) CINDY COYLE ([id number]) 1950 F Date Time Provider Department 01/13/25 AURELIO RICO During your visit today, we recorded the following information about you: Allergies As of Date: 01/13/2025 Noted Allergy Reaction IBUPROFEN 05/17/2021 1 - Mental Status Change 14 - Other: See Comments TRICYCLIC ANTIDEPRESSANTS AND TRI*05/31/2021 15 - Contraindication-Medical [facility]ado* DOXYCYCLINE 02/26/2024 16 - Unknown FLUOXETINE 02/26/2024 16 - Unknown METOPROLOL 02/26/2024 16 - Unknown TETRACYCLIC ANTIDEPRESSANTS 08/08/2022 14 - Other: See Comments Comments: palpitations Date Reviewed: 12/23/2024 Reviewed by: Primitivo Cummins MA - Fully Assessed Reason for Visit: Radiology Pre Procedure Instructions [1506] Prescriptions as of 01/13/2025 - bisoprolol (ZEBETA) 5 mg tablet Take 0.5 tablets by mouth four times a week. - pantoprazole DR (PROTONIX) 40 mg tablet Take 1 tablet by mouth every afternoon. - predniSONE (DELTASONE) 10 mg tablet Take 1 tablet by mouth once daily. - midodrine (PROAMATINE) 10 mg tablet TAKE ONE TABLET BY MOUTH EVERY DAY fri/fri/fri ON dialysis DAYS prior TO dialysis - folic acid/vit B complex and C (DIALYVITE 800 ORAL) Take 800 mg by mouth once daily. - sucroferric oxyhydroxide (VELPHORO) 500 mg chew Take 500 mg by mouth three times daily with meals. - brimonidine (ALPHAGAN P) 0.1 % drop Use 1 Drop in the right eye twice daily. - fluorometholone (FML LIQUID FILM) 0.1 % ophthalmic suspension Use 1 Drop in both eyes every other day. 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] 10/29/2023 Atypical chest pain [R07.89] 05/28/2024 NICM (nonischemic cardiomyopathy) (HCC) [I42.8] 05/29/2024 Chronic systolic CHF (congestive heart failure)*05/29/2024 Equivocal stress test [R94.39] 05/30/2024 Chronic combined systolic and diastolic congest*05/30/2024 Atrial fibrillation (HCC) [I48.91] 05/2024 HTN (hypertension) [I10] Encounter Status:Closed by AURELIO RICO on 01/13/25 NIEVES Observed: 01/12/2025 12:00 AM Status: COMPLETED Source: [facility] Telephone ([facility]) CINDY COYLE ([id number]) 1950 F Date Time Provider Department 01/12/25 GERI CALLOWAY [facility] During your visit today, we recorded the following information about you: Allergies As of Date: 01/12/2025 Noted Allergy Reaction IBUPROFEN 05/17/2021 1 - Mental Status Change 14 - Other: See Comments TRICYCLIC ANTIDEPRESSANTS AND TRI*05/31/2021 15 - Contraindication-Medical Prado* DOXYCYCLINE 02/26/2024 16 - Unknown FLUOXETINE 02/26/2024 16 - Unknown METOPROLOL 02/26/2024 16 - Unknown TETRACYCLIC ANTIDEPRESSANTS 08/08/2022 14 - Other: See Comments Comments: palpitations Date Reviewed: 12/23/2024 Reviewed by: Placido, Taqwaya, MA - Fully Assessed Prescriptions as of 01/12/2025 - bisoprolol (ZEBETA) 5 mg tablet Take 0.5 tablets by mouth four times a week. - pantoprazole DR (PROTONIX) 40 mg tablet Take 1 tablet by mouth every afternoon. - predniSONE (DELTASONE) 10 mg tablet Take 1 tablet by mouth once daily. - midodrine (PROAMATINE) 10 mg tablet TAKE ONE TABLET BY MOUTH EVERY DAY mon/fri/fri ON dialysis DAYS prior TO dialysis - folic acid/vit B complex and C (DIALYVITE 800 ORAL) Take 800 mg by mouth once daily. - sucroferric oxyhydroxide (VELPHORO) 500 mg chew Take 500 mg by mouth three times daily with meals. - brimonidine (ALPHAGAN P) 0.1 % drop Use 1 Drop in the right eye twice daily. - fluorometholone (FML LIQUID FILM) 0.1 % ophthalmic suspension Use 1 Drop in both eyes every other day. 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 MICRO - Microbiology PROCEDURE: Shiga Toxins 1 and 2 [[id number]: [id number] ^1 *1] SOURCE: Stool BODY SITE: COLLECTED DATE/TIME: 12/26/2024 16:51 EDT RECEIVED DATE/TIME: 12/26/2024 16:51 EDT START DATE/TIME: 12/26/2024 16:51 EDT FREE TEXT SOURCE: FINAL REPORTS Final Report [] Verified Date/Time/Personnel: 12/27/2024 14:16 EDT Absence of Shiga toxin 1 Absence of Shiga toxin 2 Order Comments O1: Shiga Toxins 1 and 2 fax result to [phone] ordered by lab as part of Culture Stool Panel Interpretive Data ^1: Shiga Toxins 1 and 2 Testing performed by immunochromatography. Performing Locations *1: This test was performed at: [address], [address] [place] [address] AUTOMATIC EMBROIDERY MACHINE TENDER Observed: 12/24/2024 7:30 AM Status: F Source: [facility] . MICRO - Microbiology PROCEDURE: Stool Culture [O1 ^1 *1] SOURCE: Stool BODY SITE: COLLECTED DATE/TIME: 12/24/2024 07:30 EDT RECEIVED DATE/TIME: 12/26/2024 16:50 EDT START DATE/TIME: 12/26/2024 16:51 EDT FREE TEXT SOURCE: FINAL REPORTS Final Report [] Verified Date/Time/Personnel: 12/29/2024 11:07 EDT Normal stool radha present. Salmonella: Negative Shigella: Negative Campylobacter: Negative PRELIMINARY REPORTS Preliminary Report [] Verified Date/Time/Personnel: 12/28/2024 12:48 EDT Normal stool radha present. Negative for stool pathogens at 48 hours. Final report to follow. Order Comments O1: Stool Culture fax result to [phone] Interpretive Data ^1: Culture Stool Requests for alternative pathogens including Yersinia, E. coli 0157, C. difficile toxin, Rotavirus, Giardia and parasites require specific requests. Performing Locations *1: This test was performed at: [address], [address] [place] [address] OVA & PARASITE EXAM [CCL] Collected: 7:30 AM Status: F Source: [facility] TYPE CODE TESTS RESULT OUT OF RANGE REFERENCE UNITS LAB OAPEXAM(LOINC) OVA AND PARASITE EXAM See Below Result Comment: OVA AND PARA SITE EXAM No Parasites Seen This test can not identify the presence of Cryptosporidium, Cyclospora or Cystoisospora (order CRYSPO); Microsporidia (order MICSPO) or consider ordering STGIPI (molecular test to detect common infectious causes of diarrhea). A single negative test result does not rule out a parasitic infection. Due to intermittent shedding of parasites, it is recommended that three specimens collected over a 7 day period are submitted to improve detection sensitivity. SOURCE: [place] [address] Preston Griggs III, M.D. [id number] Performed By: #### [id number] ## ## [place] [id number] C DIFF COMPLETE Observed: 12/24/2024 7:30 AM Status: F Source: [facility] C DIFF COMPLETE 0{ C-DIFF TOXIN _NEGATIVE__ (NRL: NEGATIVE ) 12/24/24.1624.CWB. C-DIFF AG POSITIVE { CALLED TO ROXANE BANKS BY CB AT 1625 { READ BACK BY ROXANE BANKS RA AT 1623 INTERNAL NEG QC PASS INTERNAL POS QC PASS EXTERNAL QC DONE? YES INTERPRETATION: POSITIVE Ag,POSITIVE Tox = C. Diff is present & producing toxins POSITIVE Ag,NEGATIVE Tox = C. Diff is present NEGATICE Ag,NEGATICE Tox = C. Diff is not present A low percentage of specimens may test negative for antigen but positive for toxin. A fresh specimen should be resumbitted for retesting. Performed By: #### [id number] ## ## [place] [id number] STOOL CULTURE [ALISHA] Observed: 2024 7:30 AM Status: F Source: [facility] STOOL CULTURE [ALISHA] 12/30/24.0936.DNP.COMPLETE Performed By: #### [id number] ## ## [place] [address],[place] [address] O+P SPEC MICRO Observed: 12/24/2024 7:30 AM Status: F Source: [facility] OVA AND PARASITE EXAM: No Parasites Seen Performed By: #### [id number] ### # [facility] CLIA [id number] [address] [place] [address] CNOV Observed: 12/23/2024 1:30 PM Status: COMPLETED Source: [facility] Office Visit (CARDMN) CINDY COYLE ([id number]) 1950 F Date Time Provider Department 12/23/24 1:30 PM ROSEMARY MACHADO [facility] During your visit today, we recorded the following information about you: Blood pressure Weight Height 110/58 94.3 kg 1.575 m Rosemary Machado APRN.RECORDS ASSISTANT 12/23/2024 5:32 PM Signed [facility] [place] [facility] Department of Cardiovascular Medicine SECTION OF CARDIAC PACING and ELECTROPHYSIOLOGY OUTPATIENT VISIT DATE December 23, 2024 OUTPATIENT VISIT TYPE ESTABLISHED PRIMARY CARE PHYSICIAN: [place] [address] REFERRING PHYSICIAN: Farzad Adair [address] [place] [id number] CHIEF COMPLAINT: AF HISTORY OF PRESENT ILLNESS: Ms. Coyle is a 74 year old female who presents today for follow-up visit for AF. She is an established patient of Dr. Adair last seen on 11/04/2024. She has a past medical history of diabetes, pulmonary restrictive disease requiring 3L oxygen at night with BiPap, end-stage renal disease on dialysis, hypertension, nonischemic cardiomyopathy, nonobstructive coronary disease, and complete heart block s/p ELECTRONICS TESTER-P in 2017. She was diagnosed with AF in 05/2024 and started on Eliquis. She was hospitalized in 06/2024 with Hgb of 5.7 7, transfused 2 units. She was found to have a GIB from right sided colonic mas s/p hemicolectomy 06/25/2024. She was told that mass was cancerous, removed and no need for further treatment other than surveillance.She reports another hospitalization in 08/2024 for GIB from suture site after resuming Eliquis a month prior. She was recommended resuming Eliquis with plans for a Watchman +/- AF ablation scheduled for 11/11/2024. She developed black tarry stools and ultimately stopped taking Eliquis two days prior to the scheduled Watchman. Procedure was canceled due to inability to tolerate short-term AC required. Her device check today shows <1% AT burden. She is dealing knee issues but otherwise feels well. PAST CARDIAC HISTORY: PAST MEDICAL HISTORY Diagnosis Date Anemia Atrial fibrillation (HCC) 05/2024 Biventricular ICD (implantable cardioverter-defibrillator) in place 12/2022 new RV and LBB pace/sense lead, upgrade BiV ICD, RA and CS (previously placed) were inserted in RA, CS ports, new left bundle lead was placed to RV pace/sense port, distal coil ICD pin was placed to distal coil port, proximal coil ICD port was plugged, old RV lead was capped, ICD lead pace/sense terminal pin was capped. Chronic venous insufficiency Diverticulitis DM2 (diabetes mellitus, type 2) ([facility]) ESRD (end stage renal disease) on dialysis (HCC) 04/27/2021 History of restrictive pulmonary disease HTN (hypertension) Obesity Secondary hyperparathyroidism of renal origin (HCC) UTI (urinary tract infection) PAST SURGICAL HISTORY Procedure Laterality Date AV FISTULA PLACEMENT HX Right CARDIAC PACEMAKER PLACEMENT HX 02/04/2017 LAPAROSCOPIC CHOLECYSTECTOMY 03/13/2012 RIGHT HEART CATHERIZATION 03/29/2015 TONSILLECTOMY AND ADENOIDECTOMY <AGE 13 SOCIAL HISTORY Social History Tobacco Use Smoking status: Former Current packs/day: 0.00 Average packs/day: 1 pack/day for 20.0 years (20.0 ttl pk-yrs) Types: Cigarettes Start date: 1959 Quit date: 1979 Years since quittin.2 Smokeless tobacco: Never Vaping Use Vaping status: Never Used Substance Use Topics Alcohol use: Not Currently Drug use: Never FAMILY HISTORY Problem Relation Age of Onset Heart disease Mother Heart disease Father Diabetes Father ALLERGIES: ALLERGIES Allergen Reactions Ibuprofen Mental Status Change, Other: See Comments Tricyclic Antidepre* Contraindication-Medical Surgical Doxycycline Unknown Fluoxetine Unknown Metoprolol Unknown Tetracyclic Antidep* Other: See Comments palpitations MEDICATIONS: bisoprolol (ZEBETA) 5 mg tablet Take 0.5 tablets by mouth four times a week. apixaban (ELIQUIS) 5 mg tab(s) Take 1 tablet by mouth two times a day. sodium chloride 0.9 %, flush, (BD POSIFLUSH) syringe Inject 2-10 mL intravenously as directed. For Echo procedure pantoprazole DR (PROTONIX) 40 mg tablet Take 1 tablet by mouth every afternoon. carvedilol (COREG) 3.125 mg tablet Take 0.5 tablets by mouth two times a day. (Patient not taking: Reported on 11/04/2024) predniSONE (DELTASONE) 10 mg tablet Take 1 tablet by mouth once daily. midodrine (PROAMATINE) 10 mg tablet TAKE ONE TABLET BY MOUTH EVERY DAY mon/fri/fri ON dialysis DAYS prior TO dialysis folic acid/vit B complex and C (DIALYVITE 800 ORAL) Take 800 mg by mouth once daily. sucroferric oxyhydroxide (VELPHORO) 500 mg chew Take 500 mg by mouth three times daily with meals. brimonidine (ALPHAGAN P) 0.1 % drop Use 1 Drop in the right eye twice daily. fluorometholone (FML LIQUID FILM) 0.1 % ophthalmic suspension Use 1 Drop in both eyes every other day. REVIEW OF SYSTEMS: GENERAL: No weight loss, malaise or fevers RESPIRATORY: See HPI CARDIOVASCULAR: See HPI GI: No hematochezia or melena SKIN: +ve easy bruisability PSYCH: Calm and cooperative. PHYSICAL EXAMINATION: BP 110/58 (BP Site: Left Arm) Ht 157.5 cm (5' 2) Wt 94.3 kg (208 lb) BMI 38.04 kg/m? General Appearance: Well developed, well nourished, and No acute distress Lungs: CTAB; No crackles, rales, rhonchi or wheezes; Respiratory effort: normal Heart: Regular rate AND rhythm; No murmur: S1, S2; Edema: None; PT/Radial pulses: 2+ Skin: Warm, Dry, and Moist Musculoskeletal: No deformities; Steady gait Neurologic/Psychiatric: Oriented to time, place, person AND situation;No gross focal neurologic deficits Device pocket: Well healed CARDIOVASCULAR MEDICINE TESTING: Device Check: In-Office Device Evaluation ELECTRONICS TESTER-D *Seeing Witherell today* * Presenting Rhythm: /STATIONARY EQUIPMENT MECHANIC w PACs and PVCs * Underlying Rhythm: SR with CHB, no V intrinsic at VVI 40. * Battery: 4.40 yrs * Events or Alerts: 11 AMS episodes since last in clinic in Oct 2024. PMT events also noted however appear to be false. * Lead Measurements: Capture thresholds and sensing are appropriate. The pacing outputs maintain safety margin. Lead impedance trends are normal. *Auto testing showed RA 2V capture threshold however tested in clinic and showed 1V safety margin to be true* (see second PDF for true atrial testing) * Other Diagnostics: AP 14 %/STATIONARY EQUIPMENT MECHANIC 89% * Programming Changes Made Today: None Tachycardia: AT * Stored EGMs are consistent with or suggestive of Atrial Tachycardia * AT [place]: <1% * Total number of episodes: 11 NOTE TO PROVIDERS: Cardiac Implanted Devices Flowsheets contain detailed Programming and Evaluation data. Full Docket/PDF found below under Scanned Documents Last ECHO Result Conclusion ECHO Collected: 02/05/2024 3:35 PM (Final result) Impression: CONCLUSIONS: - Technically difficult exam due to body habitus and due to restless leg. - Exam indication: H/O Heart Failure - The left ventricle is severely dilated. Left ventricular systolic function is moderately decreased. EF = 37 ? 5% (2D biplane) Left ventricular diastolic function was not evaluated due to >2+ MR. - The right ventricle is normal in size. Right ventricular systolic function is low normal. - The left atrial cavity is severely dilated. - There is moderate (2+) mitral valve regurgitation due to restricted leaflet motion. - Tricuspid aortic valve. There is moderate aortic valve stenosis caused by calcified valve and restricted opening. AV area is 1.01 cm? (0.49 cm?/m?) by continuity, VTI. The peak gradient is 38 mmHg, the mean gradient is 20 mmHg and the dimensionless valve index is 0.22. Prior peak/mean gradients of 39/19 mmHg, DI 0.28. AV morphology best seen in clips 20-21. - Exam was compared with the prior echocardiographic exam performed on 09/25/2023. Decrease in RVSP (prior RVSP of 49 mmHg). Prior reported LVEF 25% though appears similar on [id number] review. * * * Final * * * Last EKG Result Conclusion ECG COMPLETE Collected: 12/23/2024 12:23 PM (Preliminary result) Impression: SINUS RHYTHM WITH OCCASIONAL PREMATURE VENTRICULAR COMPLEXES NONSPECIFIC INTRAVENTRICULAR BLOCK POSSIBLE RIGHT VENTRICULAR HYPERTROPHY POSSIBLE ANTEROLATERAL INFARCTION , AGE UNDETERMINED INFERIOR T WAVE ABNORMALITY ABNORMAL ECG IMPRESSION: Ms. Coyle is a 74 year old female with diabetes, pulmonary restrictive disease requiring 3L oxygen at night with BiPap, end-stage renal disease on dialysis, hypertension, nonischemic cardiomyopathy, nonobstructive coronary disease, and complete heart block s/p ELECTRONICS TESTER-P in 2017. PLAN AND RECOMMENDATIONS: Paroxysmal atrial fibrillation Presents today in SR Device check shows low AF burden She is maintained on Bisoprolol, CHADS2-Vasc score = 5 ( age, gender, CHF, HTN, DM). She has not been able to tolerate AC due to prior GIBs and most recently concern for UGIB with dark tarry stools. She reports she has never been on low dose Eliquis but is hesitant to try. She is following with her PCP for change in bowel habits with stool studies planned for next week. The plan to follow-up with GI as indicated. I recommended discussing with GI starting low dose Eliquis. She is uncertain whether she wants to continue to follow at [place] or whether she would like to follow at [facility]. She will let us know for a referral if chooses to follow here after completion of the pending GI workup. Dr. Adair willing to reschedule Watchman implantation if able to tolerate low dose AC Device management S/p ELECTRONICS TESTER-P with revision to LBB pacing due to ongoing dyssynchrony despite proper CS lead placement Appropriate device function in device function in device clinic today Continue to transmit remotely every 3 months with annual visits with device clinic Follow-up in 6 months CONTACT INFORMATION: Rosemary Machado APRN.RECORDS ASSISTANT Dr. Farzad Adair's office To schedule an appointment please call -- [phone] Other questions or concerns please call his office at-- [phone] Fax#: [phone] Rosemary Machado APRN.[facility] 12/23/2024 2:[address] Farzad Adair's office To schedule an appointment please call -- [phone] Other questions or concerns please call his office at-- [phone] Fax#: [phone] Referring Provider: FARZAD ADAIR [[id number]] Allergies As of Date: 12/23/2024 Noted Allergy Reaction IBUPROFEN 05/17/2021 1 - Mental Status Change 14 - Other: See Comments TRICYCLIC ANTIDEPRESSANTS AND TRI*05/31/2021 15 - Contraindication-Medical [facility]* DOXYCYCLINE 02/26/2024 16 - Unknown FLUOXETINE 02/26/2024 16 - Unknown METOPROLOL 02/26/2024 16 - Unknown TETRACYCLIC ANTIDEPRESSANTS 08/08/2022 14 - Other: See Comments Comments: palpitations Date Reviewed: 12/23/2024 Reviewed by: Primitivo Cummins MA - Fully Assessed Primary Visit Diagnosis:Paroxysmal atrial fibrillation (HCC) [I48.0] Other Visit Diagnoses:Non-ischemic cardiomyopathy (HCC) [I42.8] Cardiac resynchronization therapy pacemaker (ELECTRONICS TESTER-P) in place [Z95.0] Order(s):bisoprolol (ZEBETA) 5 mg tabletTake 0.5 tablets by mouth four times a week.Disp: 90 tabletRfl: 2 CARDIOVASCULAR MEDICINE OP FOLLOW UP APPT ORDER [[id number]] Order #: [id number]: 1 FUTURE Prescriptions as of 12/23/2024 - bisoprolol (ZEBETA) 5 mg tablet Take 0.5 tablets by mouth four times a week. - pantoprazole DR (PROTONIX) 40 mg tablet Take 1 tablet by mouth every afternoon. - predniSONE (DELTASONE) 10 mg tablet Take 1 tablet by mouth once daily. - midodrine (PROAMATINE) 10 mg tablet TAKE ONE TABLET BY MOUTH EVERY DAY mon/wed/fri ON dialysis DAYS prior TO dialysis - folic acid/vit B complex and C (DIALYVITE 800 ORAL) Take 800 mg by mouth once daily. - sucroferric oxyhydroxide (VELPHORO) 500 mg chew Take 500 mg by mouth three times daily with meals. - brimonidine (ALPHAGAN P) 0.1 % drop Use 1 Drop in the right eye twice daily. - fluorometholone (FML LIQUID FILM) 0.1 % ophthalmic suspension Use 1 Drop in both eyes every other day. 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 Farzad Adair's office To schedule an appointment please call -- [phone] Other questions or concerns please call his office at-- [phone] Fax#: [phone] Prescriptions ordered this encounter Disp Refills Start End BISOPROLOL FUMARATE 5 MG TABLET 90 t* 2 12/23/2024 Route: ORAL Sig: Take 0.5 tablets by mouth four times a week. Medications Discontinued During This Encounter Prescriptions - bisoprolol (ZEBETA) 5 mg tablet (Discontinued) Take 2.5 mg by mouth once daily. - apixaban (ELIQUIS) 5 mg tab(s) (Discontinued) Take 1 tablet by mouth two times a day. - carvedilol (COREG) 3.125 mg tablet (Discontinued) Reported on 11/04/2024 - sodium chloride 0.9 %, flush, (BD POSIFLUSH) syringe (Discontinued) Inject 2-10 mL intravenously as directed. For Echo procedure Level of Service: OFFICE/OUTPATIENT ESTABLISHED MOD MDM 30 MIN [38452] Additional E/M codes: VISIT CPLX INHERENT EANDM ASSOC WITH MED * Encounter Status:Closed by ROSEMARY MACHADO on 12/23/24 PROGRESS Observed: 12/23/2024 1:14 PM Status: COMPLETED Source: [facility] HNO ID: [id number] Author: ROSEMARY MACHADO APRN.RECORDS ASSISTANT Service: ? Author Type: Nurse Practitioner Type: Progress Notes Filed: 12/23/2024 17:32 Note Text: [facility] [place] [facility] Department of Cardiovascular Medicine SECTION OF CARDIAC PACING and ELECTROPHYSIOLOGY OUTPATIENT VISIT DATE December 23, 2024 OUTPATIENT VISIT TYPE ESTABLISHED PRIMARY CARE PHYSICIAN: Khloe Pabon [id number] [place] [address] REFERRING PHYSICIAN: Farzad Adair [id number] [facility] [id number] CHIEF COMPLAINT: AF HISTORY OF PRESENT ILLNESS: Ms. Coyle is a 74 year old female who presents today for follow-up visit for AF. She is an established patient of Dr. Adair last seen on 11/04/2024. She has a past medical history of diabetes, pulmonary restrictive disease requiring 3L oxygen at night with BiPap, end-stage renal disease on dialysis, hypertension, nonischemic cardiomyopathy, nonobstructive coronary disease, and complete heart block s/p ELECTRONICS TESTER-P in 2017. She was diagnosed with AF in 05/2024 and started on Eliquis. She was hospitalized in 06/2024 with Hgb of 5.7 7, transfused 2 units. She was found to have a GIB from right sided colonic mas s/p hemicolectomy 06/25/2024. She was told that mass was cancerous, removed and no need for further treatment other than surveillance.She reports another hospitalization in 08/2024 for GIB from suture site after resuming Eliquis a month prior. She was recommended resuming Eliquis with plans for a Watchman +/- AF ablation scheduled for 11/11/2024. She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 may have falsely depressed results. 05/28/2024 5.45 (H) 0.51 - 0.95 mg/dL Final Comment: Patients receiving either N-Acetylcysteine (NAC) or Metamizole prior to venipuncture, may have falsely depressed results. 02/05/2024 4.81 (H) 0.58 - 0.96 mg/dL Final 10/28/2023 5.33 (H) 0.58 - 0.96 mg/dL Final Calcium, Total Date Value Ref Range Status 11/04/2024 8.3 (L) 8.5 - 10.2 mg/dL Final 05/29/2024 9.3 8.5 - 10.5 mg/dL Final 05/28/2024 9.9 8.5 - 10.5 mg/dL Final 02/05/2024 9.5 8.5 - 10.2 mg/dL Final 10/28/2023 9.9 8.5 - 10.2 mg/dL Final PTH, Intact Date Value Ref Range Status 05/02/2022 16 15 - 65 pg/mL Final AST Date Value Ref Range Status 05/28/2024 21 8 - 34 U/L Final Comment: Results may be falsely depressed after the administration of Sulfasalazine and/or Sulfapyridine. 02/05/2024 20 13 - 35 U/L Final 10/28/2023 18 13 - 35 U/L Final 08/27/2022 17 13 - 35 U/L Final 05/02/2022 21 13 - 35 U/L Final ALT Date Value Ref Range Status 05/28/2024 16 13 - 61 U/L Final Comment: Results may be falsely depressed after the administration of Sulfasalazine and/or Sulfapyridine. 02/05/2024 31 7 - 38 U/L Final 10/28/2023 18 7 - 38 U/L Final 08/27/2022 12 7 - 38 U/L Final 05/02/2022 14 7 - 38 U/L Final Alkaline Phosphatase Date Value Ref Range Status 05/28/2024 103 45 - 117 U/L Final 02/05/2024 76 34 - 123 U/L Final 10/28/2023 79 34 - 123 U/L Final 08/27/2022 86 34 - 123 U/L Final 05/02/2022 82 34 - 123 U/L Final Albumin Date Value Ref Range Status 05/28/2024 3.1 (L) 3.2 - 5.0 g/dL Final 02/05/2024 3.9 3.9 - 4.9 g/dL Final 10/28/2023 3.9 3.9 - 4.9 g/dL Final 08/27/2022 4.1 3.9 - 4.9 g/dL Final 05/02/2022 4.1 3.9 - 4.9 g/dL Final INR Date Value Ref Range Status 05/02/2022 1.0 0.9 - 1.3 Final Comment: Vitamin K Antagonist (VKA) Therapeutic Range: INR 2 to 3 (Target INR of 2.5) Note: For patients treated with VKA drugs, such as warfarin, the [place] [employer] 2012 Guideline recommends a therapeutic INR range of 2 to 3 (target INR of 2.5). This recommendation includes high-risk patients with antiphospholipid syndrome with previous arterial or venous thromboembolism, current-generation mechanical or bioprosthetic aortic heart valve replacement. Note: Patients with mechanical aortic valve replacement and additional risk factors for thromboembolic events (atrial fibrillation, previous thromboembolism, LV dysfunction, hypercoagulable conditions) or an older generation mechanical AVR (i.e., ball in-Cage) or any mechanical MVR should have a INR therapeutic range of 2.5 to 3.5 (target INR of 3). Win GALLARDO, et al. Chest 2012, 141:7S-47S Eladio RA, et al. [facility] 2017, 70: 252-289 Platelet Count Date Value Ref Range Status 11/04/2024 149 (L) 150 - 400 k/uL Final WBC Date Value Ref Range Status 11/04/2024 5.23 3.70 - 11.00 k/uL Final 05/29/2024 10.65 3.70 - 11.00 k/uL Final 05/28/2024 11.85 (H) 3.70 - 11.00 k/uL Final 02/05/2024 13.79 (H) 3.70 - 11.00 k/uL Final 08/26/2023 9.22 3.70 - 11.00 k/uL Final Hemoglobin Date Value Ref Range Status 11/04/2024 11.6 11.5 - 15.5 g/dL Final 05/29/2024 11.1 (L) 11.5 - 15.5 g/dL Final 05/28/2024 11.4 (L) 11.5 - 15.5 g/dL Final 02/05/2024 9.3 (L) 11.5 - 15.5 g/dL Final 08/26/2023 11.7 11.5 - 15.5 g/dL Final Pre immunosuppression labs Hepatitis panel Hepatitis B Core Ab, Total Date Value Ref Range Status 02/05/2024 Negative Negative Final Comment: No evidence of current or past infection with Hepatitis B virus. Should recent infection be suspected, repeat testing may be considered 3-4 weeks after this draw. Hep C Antibody IA Date Value Ref Range Status 02/05/2024 Negative Negative Final Comment: The result suggests no evidence of active infection with Hepatitis C virus. Should recent infection be suspected, repeat testing may be considered 4-6 weeks after this draw. Hep B Surface Ab, Qual Date Value Ref Range Status 05/28/2024 Negative Final Comment: No serological evidence of immunity to Hepatitis B Virus. TB quant TB Nil Date Value Ref Range Status 02/12/2024 0.02 <=8.00 IU/mL Final TB1 Ag minus Nil Date Value Ref Range Status 02/12/2024 0.00 <0.35 IU/mL Final TB2 Ag minus Nil Date Value Ref Range Status 02/12/2024 0.00 <0.35 IU/mL Final Mitogen minus Nil Date Value Ref Range Status 02/12/2024 0.28 (L) >=0.50 IU/mL Final TB Gamma Interpretation Date Value Ref Range Status 02/12/2024 Final This result is indeterminate for Mycobacterium tuberculosis complex antigen responsiveness. Specimens from immunocompromised patients, those <5 years of age, and those with a known recent exposure may fall under this category. Please correlate with clinical picture and other alternative assessments. Physical Exam: BP 107/56 Pulse 84 Temp 36.5 ?C (97.7 ?F) (Temporal) Resp 18 Wt 94.3 kg (208 lb) SpO2 95% BMI 38.04 kg/m? General appearance: Well appearing, alert, in no acute distress, well-hydrated, well nourished. In wheelchair. present. Skin: Skin color, texture, turgor normal, no suspicious rashes or lesions Neck: Supple, no adenopathy Lungs: Lungs clear to auscultation. No wheezing, rhonchi, rales. Unlabored on room air Heart: RRR without murmur, gallop, or rubs. No ectopy ASSESSMENT Cindy Coyle is a 74 year old year old female with sarcoidosis. She had a cPET 09/2023 that showed active moderate amount of myocarditis with moderate scar burden Prednisone was started and she continues on 10mg/day. She has history of VT. She cancelled her PET due to snow storm. Repeat PET and see in [facility] day afterwards. Continue prednisone 10mg/day. PLAN Sarcoidosis medications after visit: Prednisone Follow up January with me at [facility] after PET. Relevant elements copied from my previous note and modified based on today's history/exam. This note was partially generated using [employer] voice recognition system, any errors noted are unintentional and are due to this technology. FRANCISCO Benson, BINDU TYPE AND SCREEN,30 DAY Collected: 11/09/2024 3:04 PM Status: F Source: [facility] Order Comment: Specimen Type : BLOOD SPECIMEN Ordering Facility: [facility] Address: [address] [place] [address] TYPE CODE TESTS RESULT OUT OF RANGE REFERENCE UNITS LAB [id number] ABO O LAB [id number] RH Positive LAB [id number] ANTIBODY SCREEN Negative Performed By: #### [id number] ## ## [facility] CLIA [id number] [address] [place] [address] [place] [address] [place] CNPN Observed: 11/09/2024 12:00 AM Status: COMPLETED Source: [facility] Telephone (CARDMN) CINDY COYLE ([id number]) 1950 F Date Time Provider Department 11/09/24 FARZAD ADAIR During your visit today, we recorded the following information about you: Gerardo Castro 11/09/2024 8:19 AM Signed November 09, 2024 Patient Contact Number: [phone] Patient last seen within the last year: Yes 11/04/24 Reason For Call: Medication Question: Physician:Farzad Adair MD Patient was informed that non-urgent calls may be returned within the next three business days. Yes The patient called to report that she is taking Eliquis and her stool is dark. The patient asked when she is to stop taking her Eliquis due to her 11/11 procedure. Informed her to stop the morning of the procedure per the letter under the letters tab. Gerardo Padilla, Admin Frida Eckert RN 11/09/2024 12:16 PM Signed Returned phone call from Cindy Sloan Jonna. She is scheduled for the Watchman procedure on and calls today to report dark stools. Denies karen blood. She started her Eliquis 3 days ago in preparation for the procedure. She has not discussed this with her PCP nor had an testing to confirm possible bleed. I will review with Dr Adair and update the patient. ROXANE Eid Megan R, RN 11/09/2024 1:30 PM Signed Reviewed the below with Dr Adair who would like for Ms Coyle to reduce her Eliquis to 2.5mg BID. I called and updated the patient. She denies any visible blood in her stool. She is aware of when to present to the ED. ROXANE Eid Teresa 11/10/2024 11:35 AM Addendum The patient called to report that she has not taken her Eliquis last night or today. She stated that she was not able to make it to restroom yesterday and her stool was black and not able to tell if there was any blood. Her bladder was not dark red. She wants to know if it is the Eliquis that is causing her this issue. She wants to know if she will still have the Watchman placed tomorrow Gerardo Padilla, Admin Frida Eckert RN 11/10/2024 12:41 PM Signed Returned phone call from Cindy Coyle. She states she stopped her Eliquis yesterday due to ongoing dark stools. She also reported loose stools. She states she has since spoken with Dr Adair and her Watchman procedure was cancelled. She will follow up with her local PCP and GI physicians. She will seek medical care with ongoing dark stools. Frida Eckert, RN Allergies As of Date: 11/09/2024 Noted Allergy Reaction IBUPROFEN 05/17/2021 1 - Mental Status Change 14 - Other: See Comments TRICYCLIC ANTIDEPRESSANTS AND TRI*05/31/2021 15 - Contraindication-Medical [facility]* DOXYCYCLINE 02/26/2024 16 - Unknown FLUOXETINE 02/26/2024 16 - Unknown METOPROLOL 02/26/2024 16 - Unknown TETRACYCLIC ANTIDEPRESSANTS 08/08/2022 14 - Other: See Comments Comments: palpitations Date Reviewed: 11/04/2024 Reviewed by: Cordelia Jones, ROXANE - Fully Assessed Reason for Visit: Patient Question [7887] Patient Update [1634] Prescriptions as of 11/10/2024 - apixaban (ELIQUIS) 5 mg tab(s) Take 1 tablet by mouth two times a day. - bisoprolol (ZEBETA) 5 mg tablet Take 2.5 mg by mouth once daily. - sodium chloride 0.9 %, flush, (BD POSIFLUSH) syringe Inject 2-10 mL intravenously as directed. For Echo procedure - pantoprazole DR (PROTONIX) 40 mg tablet Take 1 tablet by mouth every afternoon. - carvedilol (COREG) 3.125 mg tablet Take 0.5 tablets by mouth two times a day. - predniSONE (DELTASONE) 10 mg tablet Take 1 tablet by mouth once daily. - midodrine (PROAMATINE) 10 mg tablet TAKE ONE TABLET BY MOUTH EVERY DAY mon/wed/fri ON dialysis DAYS prior TO dialysis - folic acid/vit B complex and C (DIALYVITE 800 ORAL) Take 800 mg by mouth once daily. - sucroferric oxyhydroxide (VELPHORO) 500 mg chew Take 500 mg by mouth three times daily with meals. - brimonidine (ALPHAGAN P) 0.1 % drop Use 1 Drop in the right eye twice daily. - fluorometholone (FML LIQUID FILM) 0.1 % ophthalmic suspension Use 1 Drop in both eyes every other day. Problem List As Of Date 11/09/2024 Noted Resolved Body mass index (BMI) 40.0-44.9, adult (HCC) [Z*02/03/2023 Chronic systolic congestive heart failure (HCC)*02/03/2023 Atrioventricular block, complete (HCC) [I44.2] 02/03/2023 Non-ischemic cardiomyopathy (HCC) [I42.8] 04/10/2023 Cardiac resynchronization therapy pacemaker (CR*04/10/2023 Cardiac resynchronization therapy defibrillator*04/10/2023 Sarcoidosis of lung (HCC) [D86.0] 10/29/2023 Atypical chest pain [R07.89] 05/28/2024 NICM (nonischemic cardiomyopathy) (HCC) [I42.8] 05/29/2024 Chronic systolic CHF (congestive heart failure)*05/29/2024 Equivocal stress test [R94.39] 05/30/2024 Chronic combined systolic and diastolic congest*05/30/2024 Atrial fibrillation (HCC) [I48.91] 05/2024 HTN (hypertension) [I10] Encounter Status:Closed by FRIDA ECKERT on 11/09/24 CNOV Observed: 11/04/2024 4:00 PM Status: COMPLETED Source: [facility] Office Visit (CARDMN) CINDY COYLE ([id number]) 1950 F Date Time Provider Department 11/04/24 4:00 PM FARZAD ADAIR During your visit today, we recorded the following information about you: Pulse Blood pressure Weight Height 86/minute 98/66 94.3 kg 1.575 m Farzad Adair MD 11/07/2024 3:34 PM Signed [facility] Department of Cardiovascular Medicine SECTION OF CARDIAC PACING and ELECTROPHYSIOLOGY OUTPATIENT VISIT DATE November 04, 2024 OUTPATIENT VISIT TYPE ESTABLISHED PRIMARY CARE PHYSICIAN: Khloe Pabon [id number] [place] [address] CHIEF COMPLAINT: Pre Watchman HISTORY OF PRESENT ILLNESS/NURSING INTAKE HISTORY: Ms. Coyle is a 74 year old female who presents today for follow-up visit. She has a past medical history of diabetes, pulmonary restrictive disease requiring 3L oxygen at night with BiPap, end-stage renal disease on dialysis, hypertension, nonischemic cardiomyopathy, nonobstructive coronary disease, and complete heart block s/p ELECTRONICS TESTER-P in 2017. She had declining LV function (EF 26%) and underwent device revision with new RV and LBB pace/sense lead, upgrade BiV ICD, RA and CS (previously placed) were inserted in RA, CS ports, new left bundle lead was placed to RV pace/sense port, distal coil ICD pin was placed to distal coil port, proximal coil ICD port was plugged, old RV lead was capped, ICD lead pace/sense terminal pin was capped. TTE in follow up shows persistent reduced LVEF, most recent 37% in 01/2024. In May she was found to be in AF on device checks, placed on Eliquis, she has had decline in Hgb, was recently hospitalized 06/2024 with Hgb 5.7, transfused 2 units, found GIB from right sided colonic mass; EGD unremarkable, colonoscopy showed ascending colonic mass suspicious for malignancy s/p hemicolectomy 06/25/2024; she was eventually resumed on Asa. She was told that mass was cancerous, removed and no need for further treatment other than surveillance. She continues to bruise easily, no other recent s/s bleeding. She feels fair currently, unaware of palpitations, rare dyspnea, dizziness with low BPs. She does take Midodrine prior to dialysis. She has R arm AV fistula. She was last seen in office 08/12/2024 at which time she was started on eliquis. She had a GIB requiring hospitalization (due to ulceration at suture site). She did not restart eliquis afterwards. She is scheduled for Watchman procedure next week. PLAN: GHADA guided LAAO with watchman implant on 03/11 OAC to start now with apixaban 5mg BID> may consider dose reduction to 2.5mg BID but really last episode was related to suture bleeding and should not be an issue at this time. Concomitant ablation discussed but risk > benefit with co-morbidities at this point. Will focus on stroke prevention and shortest possible anticoagulation period CHADS2-Vasc Score Breakdown 5 Total Score 1 Female 1 Age 65-74 years old 1 History of CHF 1 History of hypertension 1 History of diabetes mellitus PAST MEDICAL HISTORY Diagnosis Date Anemia Atrial fibrillation (HCC) 05/2024 Biventricular ICD (implantable cardioverter-defibrillator) in place 12/2022 new RV and LBB pace/sense lead, upgrade BiV ICD, RA and CS (previously placed) were inserted in RA, CS ports, new left bundle lead was placed to RV pace/sense port, distal coil ICD pin was placed to distal coil port, proximal coil ICD port was plugged, old RV lead was capped, ICD lead pace/sense terminal pin was capped. Chronic venous insufficiency Diverticulitis DM2 (diabetes mellitus, type 2) ([facility]) ESRD (end stage renal disease) on dialysis ([facility]) 04/27/2021 History of restrictive pulmonary disease HTN (hypertension) Obesity Secondary hyperparathyroidism of renal origin ([facility]) UTI (urinary tract infection) PAST SURGICAL HISTORY Procedure Laterality Date AV FISTULA PLACEMENT HX Right CARDIAC PACEMAKER PLACEMENT HX 02/04/2017 LAPAROSCOPIC CHOLECYSTECTOMY 03/13/2012 RIGHT HEART CATHERIZATION 03/29/2015 TONSILLECTOMY AND ADENOIDECTOMY <AGE 13 SOCIAL HISTORY Social History Tobacco Use Smoking status: Former Current packs/day: 0.00 Average packs/day: 1 pack/day for 20.0 years (20.0 ttl pk-yrs) Types: Cigarettes Start date: 1959 Quit date: 1979 Years since quittin.0 Smokeless tobacco: Never Vaping Use Vaping status: Never Used Substance Use Topics Alcohol use: Not Currently Drug use: Never FAMILY HISTORY Problem Relation Age of Onset Heart disease Mother Heart disease Father Diabetes Father ALLERGIES: ALLERGIES Allergen Reactions Ibuprofen Mental Status Change, Other: See Comments Tricyclic Antidepre* Contraindication-Medical Surgical Doxycycline Unknown Fluoxetine Unknown Metoprolol Unknown Tetracyclic Antidep* Other: See Comments palpitations MEDICATIONS: bisoprolol (ZEBETA) 5 mg tablet Take 2.5 mg by mouth once daily. sodium chloride 0.9 %, flush, (BD POSIFLUSH) syringe Inject 2-10 mL intravenously as directed. For Echo procedure pantoprazole DR (PROTONIX) 40 mg tablet Take 1 tablet by mouth every afternoon. predniSONE (DELTASONE) 10 mg tablet Take 1 tablet by mouth once daily. midodrine (PROAMATINE) 10 mg tablet TAKE ONE TABLET BY MOUTH EVERY DAY mon/fri/fri ON dialysis DAYS prior TO dialysis folic acid/vit B complex and C (DIALYVITE 800 ORAL) Take 800 mg by mouth once daily. sucroferric oxyhydroxide (VELPHORO) 500 mg chew Take 500 mg by mouth three times daily with meals. brimonidine (ALPHAGAN P) 0.1 % drop Use 1 Drop in the right eye twice daily. fluorometholone (FML LIQUID FILM) 0.1 % ophthalmic suspension Use 1 Drop in both eyes every other day. carvedilol (COREG) 3.125 mg tablet Take 0.5 tablets by mouth two times a day. (Patient not taking: Reported on 11/04/2024) Cordelia Jones RN PHYSICAL EXAMINATION: BP 98/66 Pulse 86 Ht 157.5 cm (5' 2) Wt 94.3 kg (208 lb) BMI 38.04 kg/m? Physical Exam Constitutional: Appearance: She is well-developed. She is obese. Neck: Vascular: No JVD. Cardiovascular: Rate and Rhythm: Normal rate and regular rhythm. Pulmonary: Effort: Pulmonary effort is normal. Breath sounds: Normal breath sounds. Abdominal: General: Bowel sounds are normal. Palpations: Abdomen is soft. Musculoskeletal: General: Normal range of motion. Cervical back: Normal range of motion. Skin: General: Skin is warm and dry. Neurological: Mental Status: She is alert and oriented to person, place, and time. Psychiatric: Thought Content: Thought content normal. CARDIOVASCULAR MEDICINE TESTING: EKG 11/04/2024 reviewed: I personally interviewed, confirmed and edited the above information as obtained by others. CONTACT INFORMATION: Farzad Adair MD Referring Provider: FARZAD ADAIR [[id number]] Allergies As of Date: 11/04/2024 Noted Allergy Reaction IBUPROFEN 05/17/2021 1 - Mental Status Change 14 - Other: See Comments TRICYCLIC ANTIDEPRESSANTS AND TRI*05/31/2021 15 - Contraindication-Medical [facility]* DOXYCYCLINE 02/26/2024 16 - Unknown FLUOXETINE 02/26/2024 16 - Unknown METOPROLOL 02/26/2024 16 - Unknown TETRACYCLIC ANTIDEPRESSANTS 08/08/2022 14 - Other: See Comments Comments: palpitations Date Reviewed: 11/04/2024 Reviewed by: Cordelia Jones RN - Fully Assessed Primary Visit Diagnosis:Paroxysmal atrial fibrillation (HCC) [I48.0] Order(s):apixaban (ELIQUIS) 5 mg tab(s)Take 1 tablet by mouth two times a day.Disp: 60 tabletRfl: 1 CARDIOVASCULAR MEDICINE OP FOLLOW UP APPT ORDER [[id number]] Order #: [id number]: 1 FUTURE Prescriptions as of 11/07/2024 - apixaban (ELIQUIS) 5 mg tab(s) Take 1 tablet by mouth two times a day. - bisoprolol (ZEBETA) 5 mg tablet Take 2.5 mg by mouth once daily. - sodium chloride 0.9 %, flush, (BD POSIFLUSH) syringe Inject 2-10 mL intravenously as directed. For Echo procedure - pantoprazole DR (PROTONIX) 40 mg tablet Take 1 tablet by mouth every afternoon. - carvedilol (COREG) 3.125 mg tablet Take 0.5 tablets by mouth two times a day. - predniSONE (DELTASONE) 10 mg tablet Take 1 tablet by mouth once daily. - midodrine (PROAMATINE) 10 mg tablet TAKE ONE TABLET BY MOUTH EVERY DAY mon/fri/fri ON dialysis DAYS prior TO dialysis - folic acid/vit B complex and C (DIALYVITE 800 ORAL) Take 800 mg by mouth once daily. - sucroferric oxyhydroxide (VELPHORO) 500 mg chew Take 500 mg by mouth three times daily with meals. - brimonidine (ALPHAGAN P) 0.1 % drop Use 1 Drop in the right eye twice daily. - fluorometholone (FML LIQUID FILM) 0.1 % ophthalmic suspension Use 1 Drop in both eyes every other day. Problem List As Of Date 11/04/2024 Noted Resolved Body mass index (BMI) 40.0-44.9, adult (HCC) [Z*02/03/2023 Chronic systolic congestive heart failure (HCC)*02/03/2023 Atrioventricular block, complete (HCC) [I44.2] 02/03/2023 Non-ischemic cardiomyopathy (HCC) [I42.8] 04/10/2023 Cardiac resynchronization therapy pacemaker (CR*04/10/2023 Cardiac resynchronization therapy defibrillator*04/10/2023 Sarcoidosis of lung (HCC) [D86.0] 10/29/2023 Atypical chest pain [R07.89] 05/28/2024 NICM (nonischemic cardiomyopathy) (HCC) [I42.8] 05/29/2024 Chronic systolic CHF (congestive heart failure)*05/29/2024 Equivocal stress test [R94.39] 05/30/2024 Chronic combined systolic and diastolic congest*05/30/2024 Atrial fibrillation (HCC) [I48.91] 05/2024 HTN (hypertension) [I10] Prescriptions ordered this encounter Disp Refills Start End APIXABAN 5 MG TABLET 60 t* 1 11/07/2024 01/06/2025 Route: ORAL Sig: Take 1 tablet by mouth two times a day. Encounter Status:Closed by FARZAD ADAIR on 11/07/24 PROGRESS Observed: 11/04/2024 3:12 PM Status: COMPLETED Source: [facility] ID: [id number] Author: FARZAD ADAIR MD Service: ? Author Type: Physician Type: Progress Notes Filed: 11/07/2024 15:34 Note Text: [facility] [place] Department of Cardiovascular Medicine SECTION OF CARDIAC PACING and ELECTROPHYSIOLOGY OUTPATIENT VISIT DATE November 04, 2024 OUTPATIENT VISIT TYPE ESTABLISHED PRIMARY CARE PHYSICIAN: Khloe Pabon [facility] [facility] [place] [address] CHIEF COMPLAINT: Pre Watchman HISTORY OF PRESENT ILLNESS/NURSING INTAKE HISTORY: Ms. Coyle is a 74 year old female who presents today for follow-up visit. She has a past medical history of diabetes, pulmonary restrictive disease requiring 3L oxygen at night with BiPap, end-stage renal disease on dialysis, hypertension, nonischemic cardiomyopathy, nonobstructive coronary disease, and complete heart block s/p ELECTRONICS TESTER-P in 2017. She had declining LV function (EF 26%) and underwent device revision with new RV and LBB pace/sense lead, upgrade BiV ICD, RA and CS (previously placed) were inserted in RA, CS ports, new left bundle lead was placed to RV pace/sense port, distal coil ICD pin was placed to distal coil port, proximal coil ICD port was plugged, old RV lead was capped, ICD lead pace/sense terminal pin was capped. TTE in follow up shows persistent reduced LVEF, most recent 37% in 01/2024. In May she was found to be in AF on device checks, placed on Eliquis, she has had decline in Hgb, was recently hospitalized 06/2024 with Hgb 5.7, transfused 2 units, found GIB from right sided colonic mass; EGD unremarkable, colonoscopy showed ascending colonic mass suspicious for malignancy s/p hemicolectomy 06/25/2024; she was eventually resumed on Asa. She was told that mass was cancerous, removed and no need for further treatment other than surveillance. She continues to bruise easily, no other recent s/s bleeding. She feels fair currently, unaware of palpitations, rare dyspnea, dizziness with low BPs. She does take Midodrine prior to dialysis. She has R arm AV fistula. She was last seen in office 08/12/2024 at which time she was started on eliquis. She had a GIB requiring hospitalization (due to ulceration at suture site). She did not restart eliquis afterwards. She is scheduled for Watchman procedure next week. PLAN: GHADA guided LAAO with watchman implant on 03/11 OAC to start now with apixaban 5mg BID> may consider dose reduction to 2.5mg BID but really last episode was related to suture bleeding and should not be an issue at this time. Concomitant ablation discussed but risk > benefit with co-morbidities at this point. Will focus on stroke prevention and shortest possible anticoagulation period CHADS2-Vasc Score Breakdown 5 Total Score 1 Female 1 Age 65-74 years old 1 History of CHF 1 History of hypertension 1 History of diabetes mellitus PAST MEDICAL HISTORY Diagnosis Date Anemia Atrial fibrillation (HCC) 05/2024 Biventricular ICD (implantable cardioverter-defibrillator) in place 12/2022 new RV and LBB pace/sense lead, upgrade BiV ICD, RA and CS (previously placed) were inserted in RA, CS ports, new left bundle lead was placed to RV pace/sense port, distal coil ICD pin was placed to distal coil port, proximal coil ICD port was plugged, old RV lead was capped, ICD lead pace/sense terminal pin was capped. Chronic venous insufficiency Diverticulitis DM2 (diabetes mellitus, type 2) ([facility]) ESRD (end stage renal disease) on dialysis ([facility]) 04/27/2021 History of restrictive pulmonary disease HTN (hypertension) Obesity Secondary hyperparathyroidism of renal origin ([facility]) UTI (urinary tract infection) PAST SURGICAL HISTORY Procedure Laterality Date AV FISTULA PLACEMENT HX Right CARDIAC PACEMAKER PLACEMENT HX 02/04/2017 LAPAROSCOPIC CHOLECYSTECTOMY 03/13/2012 RIGHT HEART CATHERIZATION 03/29/2015 TONSILLECTOMY AND ADENOIDECTOMY <AGE 13 SOCIAL HISTORY Social History Tobacco Use Smoking status: Former Current packs/day: 0.00 Average packs/day: 1 pack/day for 20.0 years (20.0 ttl pk-yrs) Types: Cigarettes Start date: 1959 Quit date: 1979 Years since quittin.0 Smokeless tobacco: Never Vaping Use Vaping status: Never Used Substance Use Topics Alcohol use: Not Currently Drug use: Never FAMILY HISTORY Problem Relation Age of Onset Heart disease Mother Heart disease Father Diabetes Father ALLERGIES: ALLERGIES Allergen Reactions Ibuprofen Mental Status Change, Other: See Comments Tricyclic Antidepre* Contraindication-Medical Surgical Doxycycline Unknown Fluoxetine Unknown Metoprolol Unknown Tetracyclic Antidep* Other: See Comments palpitations MEDICATIONS: bisoprolol (ZEBETA) 5 mg tablet Take 2.5 mg by mouth once daily. sodium chloride 0.9 %, flush, (BD POSIFLUSH) syringe Inject 2-10 mL intravenously as directed. For Echo procedure pantoprazole DR (PROTONIX) 40 mg tablet Take 1 tablet by mouth every afternoon. predniSONE (DELTASONE) 10 mg tablet Take 1 tablet by mouth once daily. midodrine (PROAMATINE) 10 mg tablet TAKE ONE TABLET BY MOUTH EVERY DAY mon/fri/fri ON dialysis DAYS prior TO dialysis folic acid/vit B complex and C (DIALYVITE 800 ORAL) Take 800 mg by mouth once daily. sucroferric oxyhydroxide (VELPHORO) 500 mg chew Take 500 mg by mouth three times daily with meals. brimonidine (ALPHAGAN P) 0.1 % drop Use 1 Drop in the right eye twice daily. fluorometholone (FML LIQUID FILM) 0.1 % ophthalmic suspension Use 1 Drop in both eyes every other day. carvedilol (COREG) 3.125 mg tablet Take 0.5 tablets by mouth two times a day. (Patient not taking: Reported on 11/04/2024) Cordelia Jones RN PHYSICAL EXAMINATION: BP 98/66 Pulse 86 Ht 157.5 cm (5' 2) Wt 94.3 kg (208 lb) BMI 38.04 kg/m? Physical Exam Constitutional: Appearance: She is well-developed. She is obese. Neck: Vascular: No JVD. Cardiovascular: Rate and Rhythm: Normal rate and regular rhythm. Pulmonary: Effort: Pulmonary effort is normal. Breath sounds: Normal breath sounds. Abdominal: General: Bowel sounds are normal. Palpations: Abdomen is soft. Musculoskeletal: General: Normal range of motion. Cervical back: Normal range of motion. Skin: General: Skin is warm and dry. Neurological: Mental Status: She is alert and oriented to person, place, and time. Psychiatric: Thought Content: Thought content normal. CARDIOVASCULAR MEDICINE TESTING: EKG 11/04/2024 reviewed: I personally interviewed, confirmed and edited the above information as obtained by others. CONTACT INFORMATION: Farzad Adair MD CT PULMONARY VEIN W IVCON Observed: 10/14 1:36 PM Status: F Source: [facility] * * *Final Report* * * DATE OF EXAM: Nov 04 2024 1:36PM JQC [id number] - CT PULMONARY VEIN W IVCON / PROCEDURE REASON: Paroxysmal atrial fibrillation (HCC) * * * * Physician Interpretation * * * * Cardiac CTA of the Pulmonary Veins Direct Image Comparison: CT chest dated 07/31/23 HISTORY: 74 years old Female patient with chronic atrial fibrillation The patient is evaluated for further treatment options, including PVI/LAAO. There is request to define pulmonary vein anatomy. TECHNIQUE: SCANNER: Multi-detector scanner PROTOCOL: Sequential imaging of the heart with prospective triggering in systolic phase and 1.5 mm slice reconstruction was performed following the intravenous administration of contrast material. The scan range extended from winifred to the base of the heart CT Dose-Length Product (DLP): 644 mGy*cm CT Dose Reduction Employed: Automated exposure control(AEC) and iterative recon Radiation Shielding Employed: Yes CONTRAST: IV administration of 75 ml Omnipaque 350 Scan acquisition was uncomplicated. Macro Version: [id number]_[id number] For optimization of anatomic evaluation, advanced 3-D off-line postprocessing was performed on a dedicated workstation by the interpreting physician. STUDY LIMITATIONS: None. RESULT: LINES, TUBES and DEVICES: ICD device over the left anterior chest wall, with transvenous leads extending to the RA, RV, and coronary sinus limited CHEST: visualized Chest wall anatomy: unremarkable. Stable 10 mm right breat nodule. Visualized LUNGS: bibasilar atelectasis. Small left pleural effusion. Calcified granulomas c/w prior granulomatous infection.Stable lung nodules. Visualized MEDIASTINUM: calcified mediastinal and hilar lymph nodes. PERICARDIUM: unremarkable CENTRAL PULMONARY ARTERY: normal dimensions. Assessment is limited due to limited contrast enhancement. CARDIAC CHAMBERS: Chamber size may be underestimated in single-phase systolic acquisition. LEFT VENTRICLE: dilated.Thinned septum. RIGHT VENTRICLE: normal size Left atrium: dilated. JOSH: no thrombus Right atrium: dilated CENTRAL VENOUS and PULMONARY VENOUS RETURN: normal. Coronary Sinus: normal size MITRAL VALVE: assessment is limited in the current study - no leaflet calcification. No annular calcification TRICUSPID and PULMONIC VALVE: appear unremarkable. PULMONARY VEINS: Major pulmonary veins are widely patent without evidence of pulmonary vein stenosis. Left sided veins originate from a common antrum. Right middle vein has a separate origin from the left atrium RSPV (right superior): Normal; no luminal stenosis. No wall changes. RIPV (right inferior): Normal; no luminal stenosis. No wall changes. RMPV (right middle): Normal; no luminal stenosis. No wall changes. LSPV (left superior): Normal; no luminal stenosis. No wall changes. LIPV (left inferior): Normal; no luminal stenosis. No wall changes. CORONARY ANATOMY: normal origin of the coronary arteries. Mild calcified atherosclerotic changes of the coronary arteries. However, the current study is not optimized for coronary assessment. AORTIC VALVE: assessment is limited, appears trileaflet. Mild calcification at the commissures. visualized AORTA: Pathology: No aortic pathology of the limited visualized segment of the aorta. Intervention: None Complications: n/a Aortic Size: Normal size visualized thoracic aorta. STJ: maintained Wall Changes: scattered mild partially calcified wall changes. AORTIC DIMENSIONS: AORTIC ROOT: 3.2 cm measured [id number] mid ASCENDING THORACIC AORTA: 3.3 cm mid DESCENDING THORACIC AORTA: 2.3 cm limited upper ABDOMEN: limited images are without acute abnormalities or significant changes BONES and SOFT TISSUES: degenerative changes of the thoracic spine. Clinical Data Manager (topogram) images: No additional findings. IMPRESSION: 1. WIDELY PATENT PULMONARY VEINS WITHOUT PULMONARY VEIN STENOSIS. No Evidence of JOSH Thrombus 2. Small left pleural effusion with adjacent atelectatic changes. 3. Old granulomatous disease. Twx Operator: PSCB Transcribe Date/Time: Nov 04 2024 6:21P Dictated by : MAGNUS GIRALDO MD This examination was interpreted and the report reviewed and electronically signed by: MAGNUS GIRALDO MD on Nov 04 2024 10:25PM EST [id number] PROGRESS Observed: 11/04/2024 1:15 PM Status: COMPLETED Source: [facility] HNO ID: [id number] Author: CORY PAL RT(R) Service: Radiology Author Type: Technologist Type: Progress Notes Filed: 11/04/2024 13:31 Note Text: Radiology Service Progress Note PATIENT NAME: Cindy Coyle DATE OF SERVICE: November 04, 2024 TIME: 1:31 PM PATIENT IDENTITY VERIFICATION COMPLETED USING TWO (2) IDENTIFIERS: Name and Date of confirmed by patient verbally and Name and Date of confirmed by identification band. FALL SCREENING: Has the patient had 2 falls in the last year or 1 fall with injury or currently using an Ambulatory Assistive Device (Walker, Cane, Wheelchair, Crutches, etc.)? No PATIENT GENDER DATA: Assigned female at . status: : No status: NO. PATIENT RELEVANT IMPLANT DATA REVIEWED: Yes PATIENT PRESENTS WITH AN IMPLANTABLE OR ATTACHED AMBULATORY CARE NURSE: No RADIOLOGY DEPARTMENT: CT; Exam(s) Completed: Cardiac PERIPHERAL IV DATA: Site assessment: Clean,Dry and Intact, Site disposition Discontinued SIGNED BY: RT Gabrielle(R) November 04, 2024 1:31 PM PROGRESS Observed: 11/04/2024 1:15 PM Status: COMPLETED Source: [facility] HNO ID: [id number] Author: DALY CAMARENA RN Service: Radiology Author Type: Registered Nurse Type: Progress Notes Filed: 11/04/2024 12:36 Note Text: Radiology Service Progress Note DATE OF SERVICE: November 04, 2024 TIME: 12:33 PM PATIENT WEIGHT: 208 LBS PATIENT IDENTITY VERIFICATION COMPLETED USING TWO (2) STANDARD IDENTIFIERS: Name and Date of confirmed by patient verbally and Name and Date of confirmed by identification band. FALL SCREENING: Has the patient had 2 falls in the last year or 1 fall with injury or currently using an Ambulatory Assistive Device (Walker, Cane, Wheelchair, Crutches, etc.)? Yes, Patient High Risk for Falls What interventions were put in place to prevent falls during this visit? [place] Risk Wristband Applied, Instructed Patient to Call for Help if Needed, Offered Assistance with Transfers/Clothing, Instructed Patient to Remain Seated (Not on Exam Table) Until Exam, and Increased Observations by Caregivers PATIENT GENDER DATA: Assigned female at . status: : No status: NO. ALLERGIES: Reviewed and unchanged CONTRAST ALLERGY: No EXAM: CT -CONTRAST INDUCED NEPHROPATHY RISK FACTORS: Patient age > 60 years, Diabetic: Yes. Current medication(s): januvia. Patient currently has insulin pump?: No., Known Chronic Kidney Disease (CKD), and Congestive Heart Failure (CHF) CREATININE: Creatinine Date Value Ref Range Status 05/29/2024 5.41 (H) 0.51 - 0.95 mg/dL Final Comment: Patients receiving either N-Acetylcysteine (NAC) or Metamizole prior to venipuncture, may have falsely depressed results. 05/28/2024 5.45 (H) 0.51 - 0.95 mg/dL Final Comment: Patients receiving either N-Acetylcysteine (NAC) or Metamizole prior to venipuncture, may have falsely depressed results. 02/05/2024 4.81 (H) 0.58 - 0.96 mg/dL Final Estimated Glomerular Filtration Rate Date Value Ref Range Status 05/29/2024 8 (L) >=60 mL/min/1.73m? Final Comment: Estimated Glomerular Filtration Rate (eGFR) is calculated using the 2020 CKD-EPI creatinine equation. This equation utilizes serum creatinine, sex, and age as parameters. The creatinine assay has traceable calibration to isotope dilution-mass spectrometry. Refer to KDIGO guidelines for clinical interpretation. In patients with unstable renal function, e.g. those with acute kidney injury, the eGFR may not accurately reflect actual GFR. eGFR- Date Value Ref Range Status 06/08/2021 10 Final Comment: eGFR >= 60 Indicates normal kidney function. * eGFR IS AN ESTIMATE * (AFR FREDI = ) (non-AFR AM = NON-) MDRD calculation used in the eGFR should not be used to dose medications. For further limitations of the eGFR please refer to the Physician Website or the National Kidney Disease Education Program website (www.nkdep.nih.gov). P.O.C.T. RESULTS: N/A November 04, 2024 TREATMENT: N/A and No Hydration needed: End Stage Renal Disease, patient with set dialysis schedule. Patient is scheduled for dialysis on 11/05/24 IV SITE: Ambulatory: A peripheral IV was started in the Left antecubital site with a Angio cath: 20 gauge. and A Saline lock was inserted per protocol IV SITE APPEARANCE: Clean,Dry and Intact SIGNATURE: Daly Camarena RN PATIENT NAME: Cindy Coyle DATE: November 04, 2024 TIME: 12:33 PM CBC PNL BLD AUTO Collected: 12:09 PM Status: F Source: [facility] Order Comment: Specimen Type : BLOOD SPECIMEN Ordering Facility: [facility] Address: [address] [place] [address] TYPE CODE TESTS RESULT OUT OF RANGE REFERENCE UNITS LAB 6690-2(LOINC) WBC # Bld Auto 5.23 3.70-11.00 k/uL LAB 789-8(LOINC) RBC # Bld Auto 3.96 3.90-5.20 m/uL LAB 718-7(LOINC) Hgb Bld-mCnc 11.6 11.5-15.5 g/dL LAB 4544-3(LOINC) Hct VFr Bld Auto 38.1 36.0-46.0 % LAB 787-2(LOINC) MCV RBC Auto 96.2 80.0-100.0 fL LAB 785-6(LOINC) MCH RBC Qn Auto 29.3 26.0-34.0 pg LAB 786-4(LOINC) MCHC RBC Auto-mCnc 30.4 Low 30.5-36.0 g/dL LAB 34267-8(LOINC) RDW RBC-Rto 19.8 High 11.5-15.0 % LAB 777-3(LOINC) Platelet # Bld Auto 149 Low 150-400 k/uL LAB 99352-3(LOINC) PMV Bld Auto 11.7 9.0-12.7 fL LAB 771-6(LOINC) nRBC # Bld Auto <0.01 <0.01 k/uL Performed By: #### [id number] # ### [facility] CLIA [id number] [address] [place] [address] [place] BAS METAB 2000 PNL SERPL Collected: 12:09 PM Status: F Source: [facility] Order Comment: Specimen Type : BLOOD SPECIMEN Ordering Facility: [facility] Address: [address] [place] [address] TYPE CODE TESTS RESULT OUT OF RANGE REFERENCE UNITS LAB 2345-7(INC) Glucose SerPl-mCnc 115 High 74-99 mg/dL Result Comment: The [place] Diabetes Association (ADA) provides guidance for cutoff values for fasting glucose and random glucose. The ADA defines fasting as no caloric intake for at least 8 hours. Fasting plasma glucose results between 100 to 125 mg/dL indicate increased risk for diabetes (prediabetes). Fasting plasma glucose results greater than or equal to 126 mg/dL meet the criteria for diagnosis of diabetes. In the absence of unequivocal hyperglycemia, results should be confirmed by repeat testing. In a patient with classic symptoms of hyperglycemia or hyperglycemic crisis, random plasma glucose results greater than or equal to 200 mg/dL meet the criteria for diagnosis of diabetes. Reference: Standards of Medical Care in Diabetes 2016, [place] [employer] Association. Diabetes Care. 2016.39(Suppl 1). LAB 3094-0(LOINC) BUN SerPl-mCnc 13 7-21 mg/ dL LAB 2160-0(LOINC) Creat SerPl-mCnc 2.91 High 0.58-0.96 mg/dL LAB 2951-2(LOINC) Sodium SerPl-sCnc 138 136-144 mmol/L LAB 2823-3(LOINC) Potassium SerPl-sCnc 3.9 3.7-5.1 mmol/L LAB 2075-0(LOINC) Chloride SerPl-sCnc 99 98-107 mmol/L LAB 2028-9(LOINC) CO2 SerPl-sCnc 28 22-30 mmo l/L LAB 94988-4(LOINC) Anion Gap SerPl-sCnc 11 8-15 mmol/L LAB 19892-8(LOINC) Calcium SerPl-mCnc 8.3 Low 8.5-10.2 mg/dL LAB 18745-3(LOINC) Creatinine + eGFR Pnl SerPlBld 17 Low >=60 mL/min/1 .73m??? Result Comment: Estimated Gl omerular Filtration Rate (eGFR) is calculated using the 2020 CKD-EPI creatinine equation. This equation utilizes serum creatinine, sex, and age as parameters. The creatinine assay has traceable calibration to isotope dilution-mass spectrometry. Refer to KDIGO guidelines for clinical interpretation. In patients with unstable renal function, e.g. those with acute kidney injury, the eGFR may not accurately reflect actual GFR. Performed By: #### 51383-7 # ### [facility] CLIA [id number] [address] [place] [address] STATES OF [facility] ECG COMPLETE Observed: 11/04/2024 11:46 AM Status: F Source: [facility] Ventricular Rate : 86 BPM Atrial Rate : 86 BPM P-R Interval : 168 ms QRS Duration : 144 ms Q-T Interval : 434 ms QTC Calculation(Bazett) : 519 ms Calculated P [place] : 91 degrees Calculated R [place] : 140 degrees Calculated T [place] : -61 degrees ATRIAL-SENSED VENTRICULAR-PACED RHYTHM ABNORMAL ECG Confirmed by WU GOMEZ MD ([id number]) on 11/10/2024 4:34:27 PM NAME : CINDY COYLE PID : [id number] : 1950 Gender : Female Race : ORD : [id number] Procedure Date : Nov 04 2024 11:46:27 Edit Date : Nov 10 2024 16:34:33 Diagnosis: ATRIAL-SENSED VENTRICULAR-PACED RHYTHM ABNORMAL ECG Confirmed by WU GOMEZ MD ([id number]) on 11/10/2024 4:34:27 PM Test Reason : Location : 314 : J14 Overread By : WU GOMEZ MD Edited By : WU GOMEZ MD Referred By : FARZAD ADAIR Acquired by : MARIAN MAK Observed: 10/20/2024 12:00 AM Status: COMPLETED Source: [facility] Telephone (MFI) CINDY COYLE ([id number]) 1950 F Date Time Provider Department 10/20/24 GERI CALLOWAY [facility] During your visit today, we recorded the following information about you: Allergies As of Date: 10/20/2024 Noted Allergy Reaction IBUPROFEN 05/17/2021 1 - Mental Status Change 14 - Other: See Comments TRICYCLIC ANTIDEPRESSANTS AND TRI*05/31/2021 15 - Contraindication-Medical [place]* DOXYCYCLINE 02/26/2024 16 - Unknown FLUOXETINE 02/26/2024 16 - Unknown METOPROLOL 02/26/2024 16 - Unknown TETRACYCLIC ANTIDEPRESSANTS 08/08/2022 14 - Other: See Comments Comments: palpitations Date Reviewed: 09/03/2024 Reviewed by: Willi Wall MD - Fully Assessed Reason for Visit: Radiology Pre Procedure Instructions [1506] Cmt: RN talked to patient about sarcoid diet and medication instructions. Patient verbalized understanding of the instructions. Prescriptions as of 10/20/2024 - sodium chloride 0.9 %, flush, (BD POSIFLUSH) syringe Inject 2-10 mL intravenously as directed. For Echo procedure - pantoprazole DR (PROTONIX) 40 mg tablet Take 1 tablet by mouth every afternoon. - carvedilol (COREG) 3.125 mg tablet Take 0.5 tablets by mouth two times a day. - predniSONE (DELTASONE) 10 mg tablet Take 1 tablet by mouth once daily. - midodrine (PROAMATINE) 10 mg tablet TAKE ONE TABLET BY MOUTH EVERY DAY mon/fri/fri ON dialysis DAYS prior TO dialysis - folic acid/vit B complex and C (DIALYVITE 800 ORAL) Take 800 mg by mouth once daily. - sucroferric oxyhydroxide (VELPHORO) 500 mg chew Take 500 mg by mouth three times daily with meals. - brimonidine (ALPHAGAN P) 0.1 % drop Use 1 Drop in the right eye twice daily. - fluorometholone (FML LIQUID FILM) 0.1 % ophthalmic suspension Use 1 Drop in both eyes every other day. 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] 10/29/2023 Atypical chest pain [R07.89] 05/28/2024 NICM (nonischemic cardiomyopathy) (HCC) [I42.8] 05/29/2024 Chronic systolic CHF (congestive heart failure)*05/29/2024 Equivocal stress test [R94.39] 05/30/2024 Chronic combined systolic and diastolic congest*05/30/2024 Atrial fibrillation (HCC) [I48.91] 05/2024 HTN (hypertension) [I10] Encounter Status:Closed by GERI CALLOWAY on 10/20/24 NIEVES Observed: 10/04/2024 12:00 AM Status: COMPLETED Source: [facility] Telephone (CARDMN) CINDY COYLE ([id number]) 1950 F Date Time Provider Department 10/04/24 FARZAD ADAIR During your visit today, we recorded the following information about you: Alba Brunson RN 10/04/2024 10:15 AM Signed ----- Message from Farzad Adair MD sent at 10/01/2024 2:54 PM EST ----- Regarding: any word from this patient? Having VT by ICD checks Will need rhythm control strategy > probably best to schedule virtual Plan for watchman after my last opd but VT becoming bigger issue Alba Brnuson RN 10/04/2024 10:19 AM Signed Spoke with patient, she has not felt any symptoms, unaware of ATP, instructed on s/s to report. Will add on for VV 11/12/23 at 10:30 am. Alba Brunson RN Allergies As of Date: 10/04/2024 Noted Allergy Reaction IBUPROFEN 05/17/2021 1 - Mental Status Change 14 - Other: See Comments TRICYCLIC ANTIDEPRESSANTS AND TRI*05/31/2021 15 - Contraindication-Medical [place]* DOXYCYCLINE 02/26/2024 16 - Unknown FLUOXETINE 02/26/2024 16 - Unknown METOPROLOL 02/26/2024 16 - Unknown TETRACYCLIC ANTIDEPRESSANTS 08/08/2022 14 - Other: See Comments Comments: palpitations Date Reviewed: 09/03/2024 Reviewed by: Willi Wall MD - Fully Assessed Prescriptions as of 10/04/2024 - sodium chloride 0.9 %, flush, (BD POSIFLUSH) syringe Inject 2-10 mL intravenously as directed. For Echo procedure - pantoprazole DR (PROTONIX) 40 mg tablet Take 1 tablet by mouth every afternoon. - carvedilol (COREG) 3.125 mg tablet Take 0.5 tablets by mouth two times a day. - predniSONE (DELTASONE) 10 mg tablet Take 1 tablet by mouth once daily. - midodrine (PROAMATINE) 10 mg tablet TAKE ONE TABLET BY MOUTH EVERY DAY mon/wed/fri ON dialysis DAYS prior TO dialysis - folic acid/vit B complex and C (DIALYVITE 800 ORAL) Take 800 mg by mouth once daily. - sucroferric oxyhydroxide (VELPHORO) 500 mg chew Take 500 mg by mouth three times daily with meals. - brimonidine (ALPHAGAN P) 0.1 % drop Use 1 Drop in the right eye twice daily. - fluorometholone (FML LIQUID FILM) 0.1 % ophthalmic suspension Use 1 Drop in both eyes every other day. 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] 10/29/2023 Atypical chest pain [R07.89] 05/28/2024 NICM (nonischemic cardiomyopathy) (HCC) [I42.8] 05/29/2024 Chronic systolic CHF (congestive heart failure)*05/29/2024 Equivocal stress test [R94.39] 05/30/2024 Chronic combined systolic and diastolic congest*05/30/2024 Atrial fibrillation (HCC) [I48.91] 05/2024 HTN (hypertension) [I10] Encounter Status:Closed by ALBA BRUNSON on 10/04/24 NIEVES Observed: 10/04/2024 12:00 AM Status: COMPLETED Source: [facility] Telephone ([facility]) CINDY COYLE ([id number]) 1950 F Date Time Provider Department 10/04/24 ROLO BOSS [facility] During your visit today, we recorded the following information about you: Allergies As of Date: 10/04/2024 Noted Allergy Reaction IBUPROFEN 05/17/2021 1 - Mental Status Change 14 - Other: See Comments TRICYCLIC ANTIDEPRESSANTS AND TRI*05/31/2021 15 - Contraindication-Medical [facility]ado* DOXYCYCLINE 02/26/2024 16 - Unknown FLUOXETINE 02/26/2024 16 - Unknown METOPROLOL 02/26/2024 16 - Unknown TETRACYCLIC ANTIDEPRESSANTS 08/08/2022 14 - Other: See Comments Comments: palpitations Date Reviewed: 09/03/2024 Reviewed by: Willi Wall MD - Fully Assessed Reason for Visit: Radiology Pre Procedure Instructions [1506] Radiology Post Procedure Follow Up [1507] Prescriptions as of 10/04/2024 - sodium chloride 0.9 %, flush, (BD POSIFLUSH) syringe Inject 2-10 mL intravenously as directed. For Echo procedure - pantoprazole DR (PROTONIX) 40 mg tablet Take 1 tablet by mouth every afternoon. - carvedilol (COREG) 3.125 mg tablet Take 0.5 tablets by mouth two times a day. - predniSONE (DELTASONE) 10 mg tablet Take 1 tablet by mouth once daily. - midodrine (PROAMATINE) 10 mg tablet TAKE ONE TABLET BY MOUTH EVERY DAY mon/wed/fri ON dialysis DAYS prior TO dialysis - folic acid/vit B complex and C (DIALYVITE 800 ORAL) Take 800 mg by mouth once daily. - sucroferric oxyhydroxide (VELPHORO) 500 mg chew Take 500 mg by mouth three times daily with meals. - brimonidine (ALPHAGAN P) 0.1 % drop Use 1 Drop in the right eye twice daily. - fluorometholone (FML LIQUID FILM) 0.1 % ophthalmic suspension Use 1 Drop in both eyes every other day. 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] 10/29/2023 Atypical chest pain [R07.89] 05/28/2024 NICM (nonischemic cardiomyopathy) (HCC) [I42.8] 05/29/2024 Chronic systolic CHF (congestive heart failure)*05/29/2024 Equivocal stress test [R94.39] 05/30/2024 Chronic combined systolic and diastolic congest*05/30/2024 Atrial fibrillation (HCC) [I48.91] 05/2024 HTN (hypertension) [I10] Encounter Status:Closed by ROLO BOSS on 10/04/24 CNCO Observed: 09/17/2024 12:00 AM Status: COMPLETED Source: [facility] Letter Text CNPN Observed: 09/08/2024 12:00 AM Status: COMPLETED Source: [facility] Telephone ([facility]) CINDY COYLE ([id number]) 1950 F Date Time Provider Department 09/08/24 FARZAD ADAIR [facility] During your visit today, we recorded the following information about you: Elizabeth Gomez RN 09/08/2024 9:53 AM Signed ----- Message from Farzad Adair MD sent at 09/01/2024 2:54 PM EST ----- Regarding: schedule watchman device implant Patient: Cindy Coyle [facility] Procedure requested: Left Appendage Closure Device Watchman CPT 61556 Anticoagulation Status: Eliquis (apixaban) Requesting Physician: Farzad Adair MD Procedural Physician: Farzad Adair MD Date of last HANDP or Date of upcoming HANDP: 09/01/24 Indications for procedure: Atrial Fibrillation Procedure time frame: Patient convenience Current Meds: Current Outpatient Medications: ? aspirin, enteric coated (ASPIRIN, ENTERIC COATED) 81 mg EC tablet? predniSONE (DELTASONE) 2.5 mg tablet? bisoprolol (ZEBETA) 5 mg tablet? midodrine (PROAMATINE) 10 mg tablet? folic acid/vit B complex and C (DIALYVITE 800 ORAL)? sucroferric oxyhydroxide (VELPHORO) 500 mg chew? brimonidine (ALPHAGAN P) 0.1 % drop? fluorometholone (FML LIQUID FILM) 0.1 % ophthalmic suspension input Section Potential Research Patient: No General anesthesia or Managed Anesthesia Care (MAC) needed: Yes Conscious Sedation: No Mapping Ablation: Biosense Mota (CARTO) CT Scan needed pre-procedure: Yes ECHO needed pre-procedure: No Anticoagulation: Stop :Eliquis (apixaban) Stop medication: Morning of procedure Stop Antiarrhythmic: No Stop Beta Clifford/ Calcium Channel Clifford: No ASA: N/A Plavix: N/A Additional instructions:None Is the patient a candidate for same day d/c: No Farzad Adair MD September 01, 2024 2:55 PM Elizabeth Gomez RN 09/08/2024 9:57 AM Signed The date of 10/14/24 with offered AND accepted by patient. SDM by Dr. Webster - no appt needed. Needs Device Clinic, Cardiac CT, ECG AND Labs (CBC,BMP,30 day TANDS) within 30 days prior to procedure date - please schedule after 10 am on Friday or only. Dr. Adair will see the patient on the day of procedure in prep room. Per patient, not on Eliquis. Will clarify with Dr. Adair when she needs to start Eliquis prior to procedure. Patient made aware that I will call her next week with Eliquis instructions. Elizabeth Gomez RN 09/08/2024 10:34 AM Addendum Patient called and asked for procedure to be rescheduled d/t change in her HD schedule on 10/14/24. The date of 11/11/24 with offered AND accepted by patient. Elizabeth Gomez RN 09/13/2024 9:[address] Adair, called and instructed patient to start Eliquis 5 mg x 2 daily, one week prior to procedure and to hold Eliquis the morning of procedure. Patient stated understanding. Per patient, has Eliquis. Allergies As of Date: 09/08/2024 Noted Allergy Reaction IBUPROFEN 05/17/2021 1 - Mental Status Change 14 - Other: See Comments TRICYCLIC ANTIDEPRESSANTS AND TRI*05/31/2021 15 - Contraindication-Medical [facility]* DOXYCYCLINE 02/26/2024 16 - Unknown FLUOXETINE 02/26/2024 16 - Unknown METOPROLOL 02/26/2024 16 - Unknown TETRACYCLIC ANTIDEPRESSANTS 08/08/2022 14 - Other: See Comments Comments: palpitations Date Reviewed: 09/03/2024 Reviewed by: Willi Wall MD - Fully Assessed Reason for Visit: Schedule Surgery [1330] Cmt: Watchman implant Prescriptions as of 09/13/2024 - sodium chloride 0.9 %, flush, (BD POSIFLUSH) syringe Inject 2-10 mL intravenously as directed. For Echo procedure - pantoprazole DR (PROTONIX) 40 mg tablet Take 1 tablet by mouth every afternoon. - carvedilol (COREG) 3.125 mg tablet Take 0.5 tablets by mouth two times a day. - predniSONE (DELTASONE) 10 mg tablet Take 1 tablet by mouth once daily. - midodrine (PROAMATINE) 10 mg tablet TAKE ONE TABLET BY MOUTH EVERY DAY mon/fri/fri ON dialysis DAYS prior TO dialysis - folic acid/vit B complex and C (DIALYVITE 800 ORAL) Take 800 mg by mouth once daily. - sucroferric oxyhydroxide (VELPHORO) 500 mg chew Take 500 mg by mouth three times daily with meals. - brimonidine (ALPHAGAN P) 0.1 % drop Use 1 Drop in the right eye twice daily. - fluorometholone (FML LIQUID FILM) 0.1 % ophthalmic suspension Use 1 Drop in both eyes every other day. 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] 10/29/2023 Atypical chest pain [R07.89] 05/28/2024 NICM (nonischemic cardiomyopathy) (HCC) [I42.8] 05/29/2024 Chronic systolic CHF (congestive heart failure)*05/29/2024 Equivocal stress test [R94.39] 05/30/2024 Chronic combined systolic and diastolic congest*05/30/2024 Atrial fibrillation (HCC) [I48.91] 05/2024 HTN (hypertension) [I10] Encounter Status:Closed by ELIZABETH GOMEZ on 09/08/24 CNPN Observed: 09/03/2024 12:00 AM Status: COMPLETED Source: [facility] Telephone ([id number]) CINDY COYLE ([id number]) 1950 F Date Time Provider Department 09/03/24 WILLI WALL [id number] During your visit today, we recorded the following information about you: Cm Christensen 09/03/2024 3:04 PM Signed This form is used for MAIN CAMPUS APPOINTMENTS ONLY. Is this request for a [facility] [place] PET scan appointment? Yes: String Winding Machine Operator: Cm Mathew Requesting Willi Taveras Area Code + Phone/Pager: [phone], [phone]: [phone] Who do we call to schedule this appointment? Patient Requesting Staff Dr.Manuel German Area Code + Phone/Pager: [phone], p: [phone] PET Orders (A delay in scheduling will result if the orders are not present at time of review): Internal ADDITIONAL ACTION MAY BE REQUIRED IF PATIENTS OON INSURANCE OR SELF PAY COVERAGE HAS NOT BEEN CLEARED FOR REQUESTED APPOINTMENT. Scheduling: ELIER: As soon as insurance will allow What account will this PET appointment be linked to? P/F Type of PET: Myocardial (Cardiac). Which PET orders are active (select all that apply)? PET Cardiac Rest Only and PET Cardiac Viability Is this cardiac PET for Sarcoidosis?(See orders) Yes Is this a NON-[facility] Physician ordering a cardiac PET with a FAXED script? No. Same day/next day medically urgent scans please call [phone] to expedite LVEF: LV Ejection Fraction (%) Date Value 02/05/2024 37 LVEF Free text: No, I do not have a result. Please contact ordering MD and request PET scan once LVEF is available. Cardiac PET scan requests require a LVEF/Ejection Fraction result before we can triage and schedule. Please complete appropriate testing to provide the LVEF prior to requesting a Cardiac PET scan Questions: Please contact Cardiology ME reading room at [phone] Additional comments: N/A Send requests to P CARDIAC PET MD Samia Bojorquez RN 09/03/2024 4:16 PM Signed Preliminary Approval for Scheduling Purposes ONLY Are Cardiac PET orders Present: Yes Do the order comments specify a Protocol or Instruction? 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 If all recommended orders are present route to P PET RETAIL ATTENDANT Sydni Horton 09/06/2024 12:06 PM Signed Pt scheduled 10/15 prep sent via [employer] order in [employer] Allergies As of Date: 09/03/2024 Noted Allergy Reaction IBUPROFEN 05/17/2021 1 - Mental Status Change 14 - Other: See Comments TRICYCLIC ANTIDEPRESSANTS AND TRI*05/31/2021 15 - Contraindication-Medical [facility]* DOXYCYCLINE 02/26/2024 16 - Unknown FLUOXETINE 02/26/2024 16 - Unknown METOPROLOL 02/26/2024 16 - Unknown TETRACYCLIC ANTIDEPRESSANTS 08/08/2022 14 - Other: See Comments Comments: palpitations Date Reviewed: 09/03/2024 Reviewed by: Willi Wall MD - Fully Assessed Reason for Visit: Nm Pet Request [3598] Prescriptions as of 09/06/2024 - pantoprazole DR (PROTONIX) 40 mg tablet Take 1 tablet by mouth every afternoon. - carvedilol (COREG) 3.125 mg tablet Take 0.5 tablets by mouth two times a day. - predniSONE (DELTASONE) 10 mg tablet Take 1 tablet by mouth once daily. - midodrine (PROAMATINE) 10 mg tablet TAKE ONE TABLET BY MOUTH EVERY DAY mon/fri/fri ON dialysis DAYS prior TO dialysis - folic acid/vit B complex and C (DIALYVITE 800 ORAL) Take 800 mg by mouth once daily. - sucroferric oxyhydroxide (VELPHORO) 500 mg chew Take 500 mg by mouth three times daily with meals. - brimonidine (ALPHAGAN P) 0.1 % drop Use 1 Drop in the right eye twice daily. - fluorometholone (FML LIQUID FILM) 0.1 % ophthalmic suspension Use 1 Drop in both eyes every other day. 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] 10/29/2023 Atypical chest pain [R07.89] 05/28/2024 NICM (nonischemic cardiomyopathy) (HCC) [I42.8] 05/29/2024 Chronic systolic CHF (congestive heart failure)*05/29/2024 Equivocal stress test [R94.39] 05/30/2024 Chronic combined systolic and diastolic congest*05/30/2024 Atrial fibrillation (HCC) [I48.91] 05/2024 HTN (hypertension) [I10] Encounter Status:Closed by SYDNI MOTA on 09/06/24 NICCI Observed: 09/02/2024 1:00 PM Status: COMPLETED Source: [facility] Office Visit (PULMMN) JONNACINDY K ([id number]) 1950 F Date Time Provider Department 09/02/24 1:00 PM WILLI WALL During your visit today, we recorded the following information about you: Temperature Pulse Respiration Blood pressure 96.5 degrees 107/minute 19/minute 95/52 Weight 94.8 kg Willi Wall MD 09/03/2024 11:55 AM [facility] [place] Cindy Lisa Coyle is a 74 year old female here for a follow up of sarcoidosis. History of Present Illness Returns today for follow up of sarcoidosis. Last seen on 07/2024 when the plan was to review colon biopsies before starting infliximab. She is currently on a daily dose of 2.5 mg prednisone for her sarcoidosis. She has not been prescribed Humira or infliximab. She reports that her heart rate is typically in the 90s but can increase to the 100s with minimal activity such as walking. She has never observed her heart rate exceeding 120. She experiences occasional dizziness, lasting only a second, which she attributes to her recent hospital stay. She also reports difficulty breathing when lying flat, but notes improvement with oxygen use. She experienced insomnia when her prednisone dosage was increased to 10 mg in October 2023. She had a colon mass removed and had surgery. She was in the shelter for 25 days. She came home and was home for about 2 weeks. They put her back on Eliquis and she hemorrhaged again. She went back in and they put hanny and cauterized everything in there. Now, they say she is ready for Eliquis. She is afraid to go back on Eliquis. She is still on dialysis. She had a right hemicolectomy on 06/25/2024. She was discharged from the hospital last Friday. She is on carvedilol on the off dialysis days because her blood pressure goes so low. She is going to try that on off dialysis days and see how that works. Her calcium is checked every first Friday of the month. PHYSICAL EXAM: BP 95/52 Pulse 107 Temp (!) 35.8 ?C (96.5 ?F) (Temporal) Resp 19 Wt 94.8 kg (209 lb) SpO2 97% BMI 38.23 kg/m? General appearance: Well appearing, alert, in no acute distress. Skin: No suspicious rashes or lesions Head: Normocephalic, no lesions or alopecia Eyes: No jaundice, no redness Respiratory: No labored breathing, no cyanosis. Extremities: No edema, clubbing. Musculoskeletal: No joint swelling, no deformity Neuro: Gait normal. Grossly non-focal. Data Reviewed (in addition to that noted in HPI, and Past histories above): Colon biopsies pending Appropriate VT Therapy: Successful DUAL CHAMBER ICD REMOTE TRANSMISSION On 08/27/24 there was 1 treated VT detection, EGM shows VT successfully terminated with ATPx1. ASSESSMENT Patient Active Problems That Need Monitoring: Diagnosis Sarcoidosis of lung (HCC) Priority: A Overview Note: - Initial A/P 10/2023: It is possible that she has sarcoidosis explaining all of these issues, but we still need a biopsy to confirm because some of the features are not too classic for sarcoidosis. The atypical features are: her CT chest shows calcified nodule in LLL, calcified node in left hilum, and calcified spleen nodules, which are more consistent with prior fungal infection and not sarcoidosis; her PET scan shows only mild FDG uptake in thoracic lymph nodes, but that could be because she has been on steroids for a year or so; when her calcium was high in 2021, her PTH was normal, which is unusual for sarcoidosis, her PTH should be been suppressed; her kidney biopsy reportedly did not show sarcoidosis. - Bronch 10/2023 with granulomas - Cardiac PET scan 09/2023 with moderate patchy FDG uptake, EF 25% - Prednisone SD 10/2023 - started taper on 02/2024. Assessment AND Plan 1. Sarcoidosis. Her calcium levels were within the normal range during the last blood work conducted in May 2024. The cardiac PET scan performed in September 2023, prior to the initiation of prednisone, indicated inflammation in her heart. An echocardiogram in January 2024 revealed an ejection fraction of 37 percent. A device check in September 2024 detected an arrhythmia six days ago, specifically ventricular tachycardia. A repeat PET scan will be ordered to assess the current state of inflammation. The prednisone dosage will be increased to 10 mg daily, with a prescription for 10 mg tablets sent to [facility]. The 2.5 mg prednisone will be discontinued. If the PET scan reveals active inflammation, the prednisone dosage may be further increased. Alternatively, if the inflammation is due to scar tissue or another cause, the dosage may be adjusted accordingly. 2. Colon Cancer. She had a right hemicolectomy on June 25, 2024, to remove a small mass confirmed to be colon cancer. Post-surgery, she spent 25 days in a shelter and has been recovering at home. Continued monitoring and follow-up with her cancer doctors are recommended. 3. Ventricular Tachycardia. A device check revealed an arrhythmia six days ago. A repeat PET scan will be ordered to assess the current state of inflammation in her heart, which could be causing the arrhythmia. If active inflammation is detected, the prednisone dosage may be increased, and further treatment options, such as Humira or infliximab, may be considered. 4. Medication Management. She was previously on Eliquis, which caused hemorrhaging. The decision to restart Eliquis will be made in consultation with her surgeon. She is currently on carvedilol on non-dialysis days to manage her blood pressure. Follow-up Return in 3 months for follow-up with Jorge A Sethi, either virtually or in person. Willi Rucker MD September 03, 2024 11:52 AM Medical Decision Making: Problems: Moderate: 2+ stable chronic illnesses High: Chronic illness with severe change and Illness/injury w/ threat to life/body function Risk: High: High risk from testing/treatment and Drug therapy requiring intensive monitoring Medical Decision Making Level: 5 - High Willi Wall MD 09/02/2024 1:14 PM Signed Treatment Plan: Increase prednisone dosage to 10 mg daily. Prescription for 10 mg tablets sent to [facility]. Discontinue 2.5 mg prednisone. A repeat PET scan will most likely be ordered to assess the current state of inflammation in the heart. Continue monitoring and follow-up with cancer doctors for colon cancer. Carvedilol to be taken on non-dialysis days to manage blood pressure. Follow-Up Instructions: Return in 3 months for follow-up with Jorge A Sethi, either virtually or in person. Await contact for scheduling the PET scan. Monitor for any new or worsening symptoms and report them to your healthcare provider. 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 - carvedilol (COREG) 3.125 mg tablet Take 0.5 tablets by mouth two times a day. - predniSONE (DELTASONE) 10 mg tablet Take 1 tablet by mouth once daily. - midodrine (PROAMATINE) 10 mg tablet TAKE ONE TABLET BY MOUTH EVERY DAY mon/wed/fri ON dialysis DAYS prior TO dialysis - folic acid/vit B complex and C (DIALYVITE 800 ORAL) Take 800 mg by mouth once daily. - sucroferric oxyhydroxide (VELPHORO) 500 mg chew Take 500 mg by mouth three times daily with meals. - brimonidine (ALPHAGAN P) 0.1 % drop Use 1 Drop in the right eye twice daily. - fluorometholone (FML LIQUID FILM) 0.1 % ophthalmic suspension Use 1 Drop in both eyes every other day. 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 Prescription for 10 mg tablets sent to [facility]. Discontinue 2.5 mg prednisone. A repeat PET scan will most likely be ordered to assess the current state of inflammation in the heart. Continue monitoring and follow-up with cancer doctors for colon cancer. Carvedilol to be taken on non-dialysis days to manage blood pressure. Follow-Up Instructions: Return in 3 months for follow-up with Jorge A Sethi, either virtually or in person. Await contact for scheduling the PET scan. Monitor for any new or worsening symptoms and report them to your healthcare provider. Prescriptions ordered this encounter Disp Refills Start End PREDNISONE 10 MG TABLET 30 t* 5 09/02/2024 Route: ORAL Sig: Take 1 tablet by mouth once daily. Medications Discontinued During This Encounter Prescriptions - predniSONE (DELTASONE) 2.5 mg tablet (Discontinued) Take 1 tablet by mouth once daily. Encounter Status:Closed by LESSA GERMAN CHAIM, WILLI on 09/03/24 PROGRESS Observed: 09/02/2024 12:46 PM Status: COMPLETED Source: [facility] ID: [id number] Author: WILLI WALL MD Service: ? Author Type: Physician Type: Progress Notes Filed: 09/03/2024 11:55 Note Text: [facility] [place] Cindy Coyle is a 74 year old female here for a follow up of sarcoidosis. History of Present Illness Returns today for follow up of sarcoidosis. Last seen on 07/2024 when the plan was to review colon biopsies before starting infliximab. She is currently on a daily dose of 2.5 mg prednisone for her sarcoidosis. She has not been prescribed Humira or infliximab. She reports that her heart rate is typically in the 90s but can increase to the 100s with minimal activity such as walking. She has never observed her heart rate exceeding 120. She experiences occasional dizziness, lasting only a second, which she attributes to her recent hospital stay. She also reports difficulty breathing when lying flat, but notes improvement with oxygen use. She experienced insomnia when her prednisone dosage was increased to 10 mg in October 2023. She had a colon mass removed and had surgery. She was in the shelter for 25 days. She came home and was home for about 2 weeks. They put her back on Eliquis and she hemorrhaged again. She went back in and they put hanny and cauterized everything in there. Now, they say she is ready for Eliquis. She is afraid to go back on Eliquis. She is still on dialysis. She had a right hemicolectomy on 06/25/2024. She was discharged from the hospital last Friday. She is on carvedilol on the off dialysis days because her blood pressure goes so low. She is going to try that on off dialysis days and see how that works. Her calcium is checked every first Friday of the month. PHYSICAL EXAM: BP 95/52 Pulse 107 Temp (!) 35.8 ?C (96.5 ?F) (Temporal) Resp 19 Wt 94.8 kg (209 lb) SpO2 97% BMI 38.23 kg/m? General appearance: Well appearing, alert, in no acute distress. Skin: No suspicious rashes or lesions Head: Normocephalic, no lesions or alopecia Eyes: No jaundice, no redness Respiratory: No labored breathing, no cyanosis. Extremities: No edema, clubbing. Musculoskeletal: No joint swelling, no deformity Neuro: Gait normal. Grossly non-focal. Data Reviewed (in addition to that noted in HPI, and Past histories above): Colon biopsies pending Appropriate VT Therapy: Successful DUAL CHAMBER ICD REMOTE TRANSMISSION On 08/27/24 there was 1 treated VT detection, EGM shows VT successfully terminated with ATPx1. ASSESSMENT Patient Active Problems That Need Monitoring: Diagnosis Sarcoidosis of lung (HCC) Priority: A Overview Note: - Initial A/P 10/2023: It is possible that she has sarcoidosis explaining all of these issues, but we still need a biopsy to confirm because some of the features are not too classic for sarcoidosis. The atypical features are: her CT chest shows calcified nodule in LLL, calcified node in left hilum, and calcified spleen nodules, which are more consistent with prior fungal infection and not sarcoidosis; her PET scan shows only mild FDG uptake in thoracic lymph nodes, but that could be because she has been on steroids for a year or so; when her calcium was high in 2021, her PTH was normal, which is unusual for sarcoidosis, her PTH should be been suppressed; her kidney biopsy reportedly did not show sarcoidosis. - Bronch 10/2023 with granulomas - Cardiac PET scan 09/2023 with moderate patchy FDG uptake, EF 25% - Prednisone SD 10/2023 - started taper on 02/2024. Assessment AND Plan 1. Sarcoidosis. Her calcium levels were within the normal range during the last blood work conducted in May 2024. The cardiac PET scan performed in September 2023, prior to the initiation of prednisone, indicated inflammation in her heart. An echocardiogram in January 2024 revealed an ejection fraction of 37 percent. A device check in September 2024 detected an arrhythmia six days ago, specifically ventricular tachycardia. A repeat PET scan will be ordered to assess the current state of inflammation. The prednisone dosage will be increased to 10 mg daily, with a prescription for 10 mg tablets sent to [facility]. The 2.5 mg prednisone will be discontinued. If the PET scan reveals active inflammation, the prednisone dosage may be further increased. Alternatively, if the inflammation is due to scar tissue or another cause, the dosage may be adjusted accordingly. 2. Colon Cancer. She had a right hemicolectomy on June 25, 2024, to remove a small mass confirmed to be colon cancer. Post-surgery, she spent 25 days in a shelter and has been recovering at home. Continued monitoring and follow-up with her cancer doctors are recommended. 3. Ventricular Tachycardia. A device check revealed an arrhythmia six days ago. A repeat PET scan will be ordered to assess the current state of inflammation in her heart, which could be causing the arrhythmia. If active inflammation is detected, the prednisone dosage may be increased, and further treatment options, such as Humira or infliximab, may be considered. 4. Medication Management. She was previously on Eliquis, which caused hemorrhaging. The decision to restart Eliquis will be made in consultation with her surgeon. She is currently on carvedilol on non-dialysis days to manage her blood pressure. Follow-up Return in 3 months for follow-up with Jorge A Sethi, either virtually or in person. Willi Rucker MD September 03, 2024 11:52 AM Medical Decision Making: Problems: Moderate: 2+ stable chronic illnesses High: Chronic illness with severe change and Illness/injury w/ threat to life/body function Risk: High: High risk from testing/treatment and Drug therapy requiring intensive monitoring Medical Decision Making Level: 5 - High PROGRESS Observed: 09/02/2024 9:51 AM Status: COMPLETED Source: [facility] ID: [id number] Author: MONTY WEBSTER MD Service: ? Author Type: Physician Type: Progress Notes Filed: 09/02/2024 10:51 Note Text: [facility] [place] [facility] SECTION OF HEART FAILURE and CARDIAC TRANSPLANT MEDICINE OUTPATIENT VISIT DATE September 02, 2024 OUTPATIENT VISIT TYPE Established Patient PRIMARY CARE PHYSICIAN: Aleah Lombardi [id number] [place] [address] CHIEF COMPLAINT: Shortness of breath NURSING INTAKE (Patient?s concerns and/or recent hospitalizations/ER visits): HF Nursing Assessment: Interim Hospitalizations and/or ER visits:06/23/2024leeding Chest Pain: no Skipping or irregular heartbeats: no Shortness of breath at rest: no Shortness of breath with activity: yes Cough: no Waking up in the middle of the night gasping for air: no Lightheadedness or dizziness: yes, sometimes Feeling like you are going to pass out: yes Actually passing out: no Poor energy level: yes Unintentional weight gain: no Unintentional weight loss: yes Swelling in your legs,feet, abdomen: yes, legs Filling up quickly when you eat: yes HISTORY OF PRESENT ILLNESS: 73 yo female with pmh of chronic HFrEF (NICMY, LVEF 26%) s/p BiV and subsequent LBB pacing, ESRD On HD, hx of restrictive pulmonary disease who presents for evaluation of her cardiomyopathy. She is unsure of her medical history. She was told she had an abnormal heart rhythm and underwent ELECTRONICS TESTER-P pacing in 2017. It seems she had complete heart block during that initial evaluation. She was unsure if there were any issues with her heart until she presented to [facility] for renal transplant evaluation. Her renal history showed normal renal function until 04/2021 where she was admitted and found to have eGFR of 8. She was started on HD. Renal biopsy reportedly performed but did not show any significant findings. She has been on HD since. Now she presents for worsening LVEF. She was seen by Drs. Jensen and Giovany for her cardiac issues. She recently underwent revision of her ELECTRONICS TESTER to LBB pacing instead given ongoing dyssynchrony despite proper CS lead placement. She is unable to tolerate GDMT due to hypotension (started on valsartan and now on 20mg on off HD days). She was recently placed on prednisone due to a concern for sarcoidosis given persistent hypercalcemia. With prednisone, her calcium has improved. Since last visit, place on eliquis and had GI bleed. Had huge GI bleed and underwent C scope. Underwent R hemicolectomy for resection of mass. Went to shelter and then had another bleed with bleeding around anastomosis/ site. Concerned for another GI bleed. Discussed Watchman device. Denies any edema, orthopnea or PND. PAST MEDICAL HISTORY Diagnosis Date Anemia Atrial fibrillation (HCC) 05/2024 Biventricular ICD (implantable cardioverter-defibrillator) in place 12/2022 new RV and LBB pace/sense lead, upgrade BiV ICD, RA and CS (previously placed) were inserted in RA, CS ports, new left bundle lead was placed to RV pace/sense port, distal coil ICD pin was placed to distal coil port, proximal coil ICD port was plugged, old RV lead was capped, ICD lead pace/sense terminal pin was capped. Chronic venous insufficiency Diverticulitis DM2 (diabetes mellitus, type 2) ([facility]) ESRD (end stage renal disease) on dialysis ([facility]) 04/27/2021 History of restrictive pulmonary disease HTN (hypertension) Obesity Secondary hyperparathyroidism of renal origin ([facility]) UTI (urinary tract infection) PAST SURGICAL HISTORY Procedure Laterality Date AV FISTULA PLACEMENT HX Right CARDIAC PACEMAKER PLACEMENT HX 02/04/2017 LAPAROSCOPIC CHOLECYSTECTOMY 03/13/2012 RIGHT HEART CATHERIZATION 03/29/2015 TONSILLECTOMY AND ADENOIDECTOMY <AGE 13 SOCIAL HISTORY Social History Tobacco Use Smoking status: Former Current packs/day: 0.00 Average packs/day: 1 pack/day for 20.0 years (20.0 ttl pk-yrs) Types: Cigarettes Start date: 1959 Quit date: 1979 Years since quittin.9 Smokeless tobacco: Never Vaping Use Vaping status: Never Used Substance Use Topics Alcohol use: Not Currently Drug use: Never FAMILY HISTORY Problem Relation Age of Onset Heart disease Mother Heart disease Father Diabetes Father ALLERGIES: ALLERGIES Allergen Reactions Ibuprofen Mental Status Change, Other: See Comments Tricyclic Antidepre* Contraindication-Medical Surgical Doxycycline Unknown Fluoxetine Unknown Metoprolol Unknown Tetracyclic Antidep* Other: See Comments palpitations CURRENT MEDICATIONS: pantoprazole DR (PROTONIX) 40 mg tablet Take 1 tablet by mouth every afternoon. predniSONE (DELTASONE) 2.5 mg tablet Take 1 tablet by mouth once daily. midodrine (PROAMATINE) 10 mg tablet TAKE ONE TABLET BY MOUTH EVERY DAY fri/fri/fri ON dialysis DAYS prior TO dialysis folic acid/vit B complex and C (DIALYVITE 800 ORAL) Take 800 mg by mouth once daily. sucroferric oxyhydroxide (VELPHORO) 500 mg chew Take 500 mg by mouth three times daily with meals. brimonidine (ALPHAGAN P) 0.1 % drop Use 1 Drop in the right eye twice daily. fluorometholone (FML LIQUID FILM) 0.1 % ophthalmic suspension Use 1 Drop in both eyes every other day. bisoprolol (ZEBETA) 5 mg tablet Take 2.5 mg by mouth on Friday, Friday, Friday and Friday. (Patient not taking: Reported on 09/02/2024) REVIEW OF SYSTEMS: CONSTITUTION: Negative for: Fever, Night sweats and Recent weight change HEENT: Negative for: Hearing loss RESPIRATORY: Positive for: Difficulty breathing Negative for: Cough GASTROINTESTINAL: Positive for: Abdominal distention and Early satiety Negative for: Nausea and Diarrhea MUSCULOSKELETAL: Negative for: Arthralgias and Myalgias NEUROLOGICAL: Negative for: Headaches and Dizziness SKIN: Negative for: Rash EYES: Negative for: Visual disturbance CARDIOVASCULAR: Positive for: Leg swelling Negative for: Chest pain GENITOURINARY: Negative for: Difficulty urinating PATIENT ENTERED DATA: 04/26/2024 05/31/2024 08/29/2024 KCCQ-12 Scores Physical Limitation Score 25 (Class III Heart Failure ) 25 (Class III Heart Failure ) 25 (Class III Heart Failure ) Symptom Frequency Score Incomplete 54.17 (Class III Heart Failure ) Incomplete Quality of Life Score 37.5 (Poor to Fair Quality of Life) 25 (Poor to Fair Quality of Life) Incomplete Social Limitation Score Incomplete 83.33 (Class II Heart Failure) Incomplete Overall Summary Score Incomplete 46.88 (Class III Heart Failure ) Incomplete 02/24/2024 04/26/2024 05/31/2024 PHQ-9 Score 2 0 2 3 Multiple values from one day are sorted in reverse-chronological order 05/21/2023 09/24/2023 04/26/2024 PROMIS Global Health - (T-Scores - the mean of general population = 50. Five points is a clinically meaningful difference.) Physical T-Score 44.9 50.8 50.8 Mental T-Score 48.3 48.3 48.3 Multiple values from one day are sorted in reverse-chronological order PHYSICAL EXAMINATION: BP 106/52 (BP Site: Left Arm) Pulse 103 Ht 157.5 cm (5' 2) Wt 95.2 kg (209 lb 12.8 oz) SpO2 99% BMI 38.37 kg/m? General: Well appearing, in no acute distress. Skin: No clubbing, no cyanosis. Eyes: Extra ocular movements intact Oropharynx: Teeth in good repair. Neck: No jugular venous distention (JVP to clavicle, no HJR), no carotid bruits, carotids have a normal upstroke, no palpable thyromegaly. Lungs: Clear to auscultation bilaterally, no wheezing or rhonchi. Heart: Regular rhythm, PMI not displaced, S1, S2 normal, no S3, no S4, no heaves, no rub and no murmur. Abdomen: Soft, nontender, bowel sounds normal, no palpable organomegaly, no bruits. Extremities: 1+ peripheral edema . Grade 2/4 distal pulses bilaterally. Neuro: Oriented to person, place and time, alert, cooperative, gait coordinated. CARDIOVASCULAR MEDICINE TESTING: There were no tests performed for review. Last ECHO Result Conclusion ECHO Collected: 02/05/2024 3:35 PM (Final result) Impression: CONCLUSIONS: - Technically difficult exam due to body habitus and due to restless leg. - Exam indication: H/O Heart Failure - The left ventricle is severely dilated. Left ventricular systolic function is moderately decreased. EF = 37 ? 5% (2D biplane) Left ventricular diastolic function was not evaluated due to >2+ MR. - The right ventricle is normal in size. Right ventricular systolic function is low normal. - The left atrial cavity is severely dilated. - There is moderate (2+) mitral valve regurgitation due to restricted leaflet motion. - Tricuspid aortic valve. There is moderate aortic valve stenosis caused by calcified valve and restricted opening. AV area is 1.01 cm? (0.49 cm?/m?) by continuity, VTI. The peak gradient is 38 mmHg, the mean gradient is 20 mmHg and the dimensionless valve index is 0.22. Prior peak/mean gradients of 39/19 mmHg, DI 0.28. AV morphology best seen in clips 20-21. - Exam was compared with the prior echocardiographic exam performed on 09/25/2023. Decrease in RVSP (prior RVSP of 49 mmHg). Prior reported LVEF 25% though appears similar on [id number] review. * * * Final * * * Last EKG Result Conclusion ECG COMPLETE Collected: 08/12/2024 8:21 AM (Preliminary result) Impression: ATRIAL-SENSED VENTRICULAR-PACED RHYTHM WITH PREMATURE SUPRAVENTRICULAR COMPLEXES AND WITH OCCASIONAL PREMATURE VENTRICULAR COMPLEXES ABNORMAL ECG IMPRESSION: NYHA Functional Class: III Stage: C heart failure Heart Failure specific medications (list current, note updates or changes, note prior intolerance): BB: bisoprolol 2.5mg daily ACEI/ARB/ARNI: * MRA: * SGLT2: * Diuretic: * Digoxin: * Vasodilators: * Anti-arrhythmics: Ivabradine: * Other anti-HTN: * PLAN AND RECOMMENDATIONS: 74 yo female with pmh of chronic HFrEF (NICMY, LVEF 26%) s/p BiV and subsequent LBB pacing, ESRD On HD, hx of restrictive pulmonary disease who presents for evaluation of her cardiomyopathy. Chronic HFrEF NICMY Hx of VT Hx of CHB s/p ELECTRONICS TESTER and now LBB pacing ERSD on HD (MWF) Restrictive lung disease epic professional-PH (mean PA of 53, TPG 28, PVR 4.7) - Who group 2 and possibly 3 GI bleed - colon ca s/p R Hemicolectomy and repeat bleed at anastomosis AF - previously on AC - stopped due to GI bleeding Will need to discuss AC with her Ep and colorectal surgeon. Stop bisoprolol and start low dose carvedilol. Recommendations: Start carvedilol 1.5625mg BID. Return in 6 months with echocardiogram. I personally interviewed, confirmed and edited the above information as obtained by others I personally spent 30 minutes in total time involved in the management and care of this patient. We discussed natural history of disease, current treatment options, and future potential treatment options. We discussed diet, exercise, other non-medical management as above. Monty Webster MD [facility] Section Of Heart Failure and Cardiac Transplant Medicine Heart [facility] Desk [id number] [place] [address] CNOV Observed: 09/02/2024 9:45 AM Status: COMPLETED Source: [facility] Office Visit (ARCENIO CHF [facility]) CINDY COYLE ([id number]) 1950 F Date Time Provider Department 09/02/24 9:45 AM MONTY WEBSTER CHF [facility] During your visit today, we recorded the following information about you: Pulse Blood pressure Weight Height 103/minute 106/52 95.2 kg 1.575 m Monty Webster MD 09/02/2024 10:51 AM Signed [facility] [place] [facility] SECTION OF HEART FAILURE and CARDIAC TRANSPLANT MEDICINE OUTPATIENT VISIT DATE September 02, 2024 OUTPATIENT VISIT TYPE Established Patient PRIMARY CARE PHYSICIAN: Aleah Lombardi [id number] [place] [address] CHIEF COMPLAINT: Shortness of breath NURSING INTAKE (Patient?s concerns and/or recent hospitalizations/ER visits): HF Nursing Assessment: Interim Hospitalizations and/or ER visits:4bleeding Chest Pain: no Skipping or irregular heartbeats: no Shortness of breath at rest: no Shortness of breath with activity: yes Cough: no Waking up in the middle of the night gasping for air: no Lightheadedness or dizziness: yes, sometimes Feeling like you are going to pass out: yes Actually passing out: no Poor energy level: yes Unintentional weight gain: no Unintentional weight loss: yes Swelling in your legs,feet, abdomen: yes, legs Filling up quickly when you eat: yes HISTORY OF PRESENT ILLNESS: 73 yo female with pmh of chronic HFrEF (NICMY, LVEF 26%) s/p BiV and subsequent LBB pacing, ESRD On HD, hx of restrictive pulmonary disease who presents for evaluation of her cardiomyopathy. She is unsure of her medical history. She was told she had an abnormal heart rhythm and underwent ELECTRONICS TESTER-P pacing in 2017. It seems she had complete heart block during that initial evaluation. She was unsure if there were any issues with her heart until she presented to [facility] for renal transplant evaluation. Her renal history showed normal renal function until 04/2021 where she was admitted and found to have eGFR of 8. She was started on HD. Renal biopsy reportedly performed but did not show any significant findings. She has been on HD since. Now she presents for worsening LVEF. She was seen by Drs. Jensen and Giovany for her cardiac issues. She recently underwent revision of her ELECTRONICS TESTER to LBB pacing instead given ongoing dyssynchrony despite proper CS lead placement. She is unable to tolerate GDMT due to hypotension (started on valsartan and now on 20mg on off HD days). She was recently placed on prednisone due to a concern for sarcoidosis given persistent hypercalcemia. With prednisone, her calcium has improved. Since last visit, place on eliquis and had GI bleed. Had huge GI bleed and underwent C scope. Underwent R hemicolectomy for resection of mass. Went to shelter and then had another bleed with bleeding around anastomosis/ site. Concerned for another GI bleed. Discussed Watchman device. Denies any edema, orthopnea or PND. PAST MEDICAL HISTORY Diagnosis Date Anemia Atrial fibrillation (HCC) 05/2024 Biventricular ICD (implantable cardioverter-defibrillator) in place 12/2022 new RV and LBB pace/sense lead, upgrade BiV ICD, RA and CS (previously placed) were inserted in RA, CS ports, new left bundle lead was placed to RV pace/sense port, distal coil ICD pin was placed to distal coil port, proximal coil ICD port was plugged, old RV lead was capped, ICD lead pace/sense terminal pin was capped. Chronic venous insufficiency Diverticulitis DM2 (diabetes mellitus, type 2) ([facility]) ESRD (end stage renal disease) on dialysis ([facility]) 04/27/2021 History of restrictive pulmonary disease HTN (hypertension) Obesity Secondary hyperparathyroidism of renal origin ([facility]) UTI (urinary tract infection) PAST SURGICAL HISTORY Procedure Laterality Date AV FISTULA PLACEMENT HX Right CARDIAC PACEMAKER PLACEMENT HX 02/04/2017 LAPAROSCOPIC CHOLECYSTECTOMY 03/13/2012 RIGHT HEART CATHERIZATION 03/29/2015 TONSILLECTOMY AND ADENOIDECTOMY <AGE 13 SOCIAL HISTORY Social History Tobacco Use Smoking status: Former Current packs/day: 0.00 Average packs/day: 1 pack/day for 20.0 years (20.0 ttl pk-yrs) Types: Cigarettes Start date: 1959 Quit date: 1979 Years since quittin.9 Smokeless tobacco: Never Vaping Use Vaping status: Never Used Substance Use Topics Alcohol use: Not Currently Drug use: Never FAMILY HISTORY Problem Relation Age of Onset Heart disease Mother Heart disease Father Diabetes Father ALLERGIES: ALLERGIES Allergen Reactions Ibuprofen Mental Status Change, Other: See Comments Tricyclic Antidepre* Contraindication-Medical Surgical Doxycycline Unknown Fluoxetine Unknown Metoprolol Unknown Tetracyclic Antidep* Other: See Comments palpitations CURRENT MEDICATIONS: pantoprazole DR (PROTONIX) 40 mg tablet Take 1 tablet by mouth every afternoon. predniSONE (DELTASONE) 2.5 mg tablet Take 1 tablet by mouth once daily. midodrine (PROAMATINE) 10 mg tablet TAKE ONE TABLET BY MOUTH EVERY DAY mon/fri/fri ON dialysis DAYS prior TO dialysis folic acid/vit B complex and C (DIALYVITE 800 ORAL) Take 800 mg by mouth once daily. sucroferric oxyhydroxide (VELPHORO) 500 mg chew Take 500 mg by mouth three times daily with meals. brimonidine (ALPHAGAN P) 0.1 % drop Use 1 Drop in the right eye twice daily. fluorometholone (FML LIQUID FILM) 0.1 % ophthalmic suspension Use 1 Drop in both eyes every other day. bisoprolol (ZEBETA) 5 mg tablet Take 2.5 mg by mouth on Friday, Friday, Friday and Friday. (Patient not taking: Reported on 09/02/2024) REVIEW OF SYSTEMS: CONSTITUTION: Negative for: Fever, Night sweats and Recent weight change HEENT: Negative for: Hearing loss RESPIRATORY: Positive for: Difficulty breathing Negative for: Cough GASTROINTESTINAL: Positive for: Abdominal distention and Early satiety Negative for: Nausea and Diarrhea MUSCULOSKELETAL: Negative for: Arthralgias and Myalgias NEUROLOGICAL: Negative for: Headaches and Dizziness SKIN: Negative for: Rash EYES: Negative for: Visual disturbance CARDIOVASCULAR: Positive for: Leg swelling Negative for: Chest pain GENITOURINARY: Negative for: Difficulty urinating PATIENT ENTERED DATA: 04/26/2024 05/31/2024 08/29/2024 KCCQ-12 Scores Physical Limitation Score 25 (Class III Heart Failure ) 25 (Class III Heart Failure ) 25 (Class III Heart Failure ) Symptom Frequency Score Incomplete 54.17 (Class III Heart Failure ) Incomplete Quality of Life Score 37.5 (Poor to Fair Quality of Life) 25 (Poor to Fair Quality of Life) Incomplete Social Limitation Score Incomplete 83.33 (Class II Heart Failure) Incomplete Overall Summary Score Incomplete 46.88 (Class III Heart Failure ) Incomplete 02/24/2024 04/26/2024 05/31/2024 PHQ-9 Score 2 0 2 3 Multiple values from one day are sorted in reverse-chronological order 05/21/2023 09/24/2023 04/26/2024 PROMIS Global Health - (T-Scores - the mean of general population = 50. Five points is a clinically meaningful difference.) Physical T-Score 44.9 50.8 50.8 Mental T-Score 48.3 48.3 48.3 Multiple values from one day are sorted in reverse-chronological order PHYSICAL EXAMINATION: BP 106/52 (BP Site: Left Arm) Pulse 103 Ht 157.5 cm (5' 2) Wt 95.2 kg (209 lb 12.8 oz) SpO2 99% BMI 38.37 kg/m? General: Well appearing, in no acute distress. Skin: No clubbing, no cyanosis. Eyes: Extra ocular movements intact Oropharynx: Teeth in good repair. Neck: No jugular venous distention (JVP to clavicle, no HJR), no carotid bruits, carotids have a normal upstroke, no palpable thyromegaly. Lungs: Clear to auscultation bilaterally, no wheezing or rhonchi. Heart: Regular rhythm, PMI not displaced, S1, S2 normal, no S3, no S4, no heaves, no rub and no murmur. Abdomen: Soft, nontender, bowel sounds normal, no palpable organomegaly, no bruits. Extremities: 1+ peripheral edema . Grade 2/4 distal pulses bilaterally. Neuro: Oriented to person, place and time, alert, cooperative, gait coordinated. CARDIOVASCULAR MEDICINE TESTING: There were no tests performed for review. Last ECHO Result Conclusion ECHO Collected: 02/05/2024 3:35 PM (Final result) Impression: CONCLUSIONS: - Technically difficult exam due to body habitus and due to restless leg. - Exam indication: H/O Heart Failure - The left ventricle is severely dilated. Left ventricular systolic function is moderately decreased. EF = 37 ? 5% (2D biplane) Left ventricular diastolic function was not evaluated due to >2+ MR. - The right ventricle is normal in size. Right ventricular systolic function is low normal. - The left atrial cavity is severely dilated. - There is moderate (2+) mitral valve regurgitation due to restricted leaflet motion. - Tricuspid aortic valve. There is moderate aortic valve stenosis caused by calcified valve and restricted opening. AV area is 1.01 cm? (0.49 cm?/m?) by continuity, VTI. The peak gradient is 38 mmHg, the mean gradient is 20 mmHg and the dimensionless valve index is 0.22. Prior peak/mean gradients of 39/19 mmHg, DI 0.28. AV morphology best seen in clips 20-21. - Exam was compared with the prior echocardiographic exam performed on 09/25/2023. Decrease in RVSP (prior RVSP of 49 mmHg). Prior reported LVEF 25% though appears similar on [id number] review. * * * Final * * * Last EKG Result Conclusion ECG COMPLETE Collected: 08/12/2024 8:21 AM (Preliminary result) Impression: ATRIAL-SENSED VENTRICULAR-PACED RHYTHM WITH PREMATURE SUPRAVENTRICULAR COMPLEXES AND WITH OCCASIONAL PREMATURE VENTRICULAR COMPLEXES ABNORMAL ECG IMPRESSION: NYHA Functional Class: III Stage: C heart failure Heart Failure specific medications (list current, note updates or changes, note prior intolerance): BB: bisoprolol 2.5mg daily ACEI/ARB/ARNI: * MRA: * SGLT2: * Diuretic: * Digoxin: * Vasodilators: * Anti-arrhythmics: Ivabradine: * Other anti-HTN: * PLAN AND RECOMMENDATIONS: 74 yo female with pmh of chronic HFrEF (NICMY, LVEF 26%) s/p BiV and subsequent LBB pacing, ESRD On HD, hx of restrictive pulmonary disease who presents for evaluation of her cardiomyopathy. Chronic HFrEF NICMY Hx of VT Hx of CHB s/p ELECTRONICS TESTER and now LBB pacing ERSD on HD (MWF) Restrictive lung disease epic professional-PH (mean PA of 53, TPG 28, PVR 4.7) - Who group 2 and possibly 3 GI bleed - colon ca s/p R Hemicolectomy and repeat bleed at anastomosis AF - previously on AC - stopped due to GI bleeding Will need to discuss AC with her Ep and colorectal surgeon. Stop bisoprolol and start low dose carvedilol. Recommendations: Start carvedilol 1.5625mg BID. Return in 6 months with echocardiogram. I personally interviewed, confirmed and edited the above information as obtained by others I personally spent 30 minutes in total time involved in the management and care of this patient. We discussed natural history of disease, current treatment options, and future potential treatment options. We discussed diet, exercise, other non-medical management as above. Monty Webster MD [facility] Section Of Heart Failure and Cardiac Transplant Medicine Heart [facility] Desk [address] [place] [address] Monty Webster MD 09/02/2024 10:45 AM Addendum Thank you for visiting the [facility]. Here are your instructions. 1. Will try 1/2 of 3.125mg of carvedilol instead of bisoprolol. 2. Will discuss anticoagulation for your atrial fibrillation with your surgeon and EP doctor. 3. Return in 6 months and echocardiogram. Please call with questions or concerns. Office: [phone] Monty Webster MD Referring Provider: WILLI WALL [[id number]] Allergies As of Date: 09/02/2024 Noted Allergy Reaction IBUPROFEN 05/17/2021 1 - Mental Status Change 14 - Other: See Comments TRICYCLIC ANTIDEPRESSANTS AND TRI*05/31/2021 15 - Contraindication-Medical [facility]* DOXYCYCLINE 02/26/2024 16 - Unknown FLUOXETINE 02/26/2024 16 - Unknown METOPROLOL 02/26/2024 16 - Unknown TETRACYCLIC ANTIDEPRESSANTS 08/08/2022 14 - Other: See Comments Comments: palpitations Date Reviewed: 09/02/2024 Reviewed by: Kalli Teixeira MA - Fully Assessed Reason for Visit: Follow Up [171] Primary Visit Diagnosis:Non-ischemic cardiomyopathy (HCC) [I42.8] Other Visit Diagnoses:Paroxysmal atrial fibrillation (HCC) [I48.0] NICM (nonischemic cardiomyopathy) (HCC) [I42.8] 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 - carvedilol (COREG) 3.125 mg tablet Take 0.5 tablets by mouth two times a day. - predniSONE (DELTASONE) 2.5 mg tablet Take 1 tablet by mouth once daily. - midodrine (PROAMATINE) 10 mg tablet TAKE ONE TABLET BY MOUTH EVERY DAY mon/wed/fri ON dialysis DAYS prior TO dialysis - folic acid/vit B complex and C (DIALYVITE 800 ORAL) Take 800 mg by mouth once daily. - sucroferric oxyhydroxide (VELPHORO) 500 mg chew Take 500 mg by mouth three times daily with meals. - brimonidine (ALPHAGAN P) 0.1 % drop Use 1 Drop in the right eye twice daily. - fluorometholone (FML LIQUID FILM) 0.1 % ophthalmic suspension Use 1 Drop in both eyes every other day. 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 Here are your instructions. 1. Will try 1/2 of 3.125mg of carvedilol instead of bisoprolol. 2. Will discuss anticoagulation for your atrial fibrillation with your surgeon and EP doctor. 3. Return in 6 months and echocardiogram. Please call with questions or concerns. Office: [phone] Monty Webster MD Prescriptions ordered this encounter Disp Refills Start End CARVEDILOL 3.125 MG TABLET 90 t* 3 09/02/2024 Route: ORAL Sig: Take 0.5 tablets by mouth two times a day. Medications Discontinued During This Encounter Prescriptions - aspirin, enteric coated (ASPIRIN, ENTERIC COATED) 81 mg EC tablet (Discontinued) Take 81 mg by mouth once daily. - bisoprolol (ZEBETA) 5 mg tablet (Discontinued) Reported on 09/02/2024 Encounter Status:Closed by MONTY WEBSTER on 09/02/24 NIEVES Observed: 08/20/2024 12:00 AM Status: COMPLETED Source: [facility] Telephone (CARDMN) CINDY COYLE ([id number]) 1950 F Date Time Provider Department 08/20/24 FARZAD ADAIR [facility] During your visit today, we recorded the following information about you: Gerardo Castro 08/20/2024 4:23 PM Signed August 20, 2024 Patient Contact Number: [phone] Patient last seen within the last year: Yes 08/12/24 Reason For Call: Other Issue: Physician:Farzad Adair MD Patient was informed that non-urgent calls may be returned within the next three business days. Yes The patient called report that she went to the restroom and there is allot of blood in her stool. She states that she is taking Eliquis. She is being taken [facility] as she has called 911. Gerardo Padilla, Admin Frida Eckert RN 08/23/2024 2:48 PM Signed Returned phone call from Cindy Coyle. No answer. Left VM. Per her last OPD visti on 08/12/24: PLAN AND RECOMMENDATIONS: NICM: GDMT and follow up per Dr Jung and Alyssia ELECTRONICS TESTER-D: device follow up q3mos and annual OPD visit PAF: asymptomatic, elevated risk for CVA. Restart apixaban, if GIB again then plan LAAO as above ROXANE Eid Teresa 08/26/2024 12:37 PM Signed The patient called to report that her local provider wants her to restart on Eliqus but she is afraid as she had bleeding in her stomach previously Gerardo Padilla, Frida Boyle RN 08/26/2024 1:38 PM Signed Returned phone call from Cindy Coyle who was recently admitted last week with GIB. She saw Dr Adair on 08/12/24 at which time her Eliquis was started (prior GIB). She states she resumed this on Friday with subsequent GIB requiring hospitalization with noted Ulceration at the suture site from previous surgery with now clip placement. She is home now and states GI approved her to restart her blood thinner on 08/31/24. She has reservations on restarting the blood thinner d/t concern for recurrence GIB. Advised we would recommend she follow the guidance of the GI team. LAAO device was mentioned at her last visit if she developed recurrent GIB. I reviewed with the patient who would like to set up a virtual visit to discuss and get scheduled. Will update Dr Adair. ROXANE Eid Megan R, ROXANE 09/01/2024 3:30 PM Signed Reviewed the below with Dr Adair who recommends placement of the Watchman device as previously discussed at her last OPD visit. I called and updated the patient. After discussion she would like to get scheduled for the procedure. A request was sent to the EP lab. She will follow the recommendations of resuming her blood thinner with her GI physicians. She is aware of our recommendation to be on this d/t her elevated CHADS VASC score. Frida Eckert RN CHADS2-Vasc Score Breakdown 5 Total Score 1 Female 1 Age 65-74 years old 1 History of CHF 1 History of hypertension 1 History of diabetes mellitus Allergies As of Date: 08/20/2024 Noted Allergy Reaction IBUPROFEN 05/17/2021 1 - Mental Status Change 14 - Other: See Comments TRICYCLIC ANTIDEPRESSANTS AND TRI*05/31/2021 15 - Contraindication-Medical [facility]* DOXYCYCLINE 02/26/2024 16 - Unknown FLUOXETINE 02/26/2024 16 - Unknown METOPROLOL 02/26/2024 16 - Unknown TETRACYCLIC ANTIDEPRESSANTS 08/08/2022 14 - Other: See Comments Comments: palpitations Date Reviewed: 08/12/2024 Reviewed by: Alba Brunson, ROXANE - Fully Assessed Reason for Visit: Patient Update [1234] Prescriptions as of 09/01/2024 - aspirin, enteric coated (ASPIRIN, ENTERIC COATED) 81 mg EC tablet Take 81 mg by mouth once daily. - predniSONE (DELTASONE) 2.5 mg tablet Take 1 tablet by mouth once daily. - bisoprolol (ZEBETA) 5 mg tablet Take 2.5 mg by mouth on Friday, Friday, Friday and Friday. - midodrine (PROAMATINE) 10 mg tablet TAKE ONE TABLET BY MOUTH EVERY DAY fri/fri/fri ON dialysis DAYS prior TO dialysis - folic acid/vit B complex and C (DIALYVITE 800 ORAL) Take 800 mg by mouth once daily. - sucroferric oxyhydroxide (VELPHORO) 500 mg chew Take 500 mg by mouth three times daily with meals. - brimonidine (ALPHAGAN P) 0.1 % drop Use 1 Drop in the right eye twice daily. - fluorometholone (FML LIQUID FILM) 0.1 % ophthalmic suspension Use 1 Drop in both eyes every other day. 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] 10/29/2023 Atypical chest pain [R07.89] 05/28/2024 NICM (nonischemic cardiomyopathy) (HCC) [I42.8] 05/29/2024 Chronic systolic CHF (congestive heart failure)*05/29/2024 Equivocal stress test [R94.39] 05/30/2024 Chronic combined systolic and diastolic congest*05/30/2024 Atrial fibrillation (HCC) [I48.91] 05/2024 HTN (hypertension) [I10] Encounter Status:Closed by FRIDA ECKERT on 08/23/24 NICCI Observed: 08/12/2024 9:15 AM Status: COMPLETED Source: [facility] Office Visit (CARDMN) CINDY COYLE ([id number]) 1950 F Date Time Provider Department 08/12/24 9:15 AM FARZAD ADAIR During your visit today, we recorded the following information about you: Pulse Blood pressure Weight Height 90/minute 110/68 95.3 kg 1.575 m Farzad Adair MD 08/12/2024 1:03 PM Signed [facility] [place] Department of Cardiovascular Medicine SECTION OF CARDIAC PACING and ELECTROPHYSIOLOGY OUTPATIENT VISIT DATE August 12, 2024 OUTPATIENT VISIT TYPE ESTABLISHED PRIMARY CARE PHYSICIAN: Nolvia Granda, NEELIMA [address] [place] [address] CHIEF COMPLAINT: follow up AF and BiV ICD HISTORY OF PRESENT ILLNESS: Ms. Coyle is a 74 year old female who presents today for follow-up visit. She has a past medical history of diabetes, pulmonary restrictive disease requiring 3L oxygen at night with BiPap, end-stage renal disease on dialysis, hypertension, nonischemic cardiomyopathy, nonobstructive coronary disease, and complete heart block s/p ELECTRONICS TESTER-P in 2016. She had declining LV function (EF 26%) and underwent device revision with new RV and LBB pace/sense lead, upgrade BiV ICD, RA and CS (previously placed) were inserted in RA, CS ports, new left bundle lead was placed to RV pace/sense port, distal coil ICD pin was placed to distal coil port, proximal coil ICD port was plugged, old RV lead was capped, ICD lead pace/sense terminal pin was capped. TTE in follow up shows persistent reduced LVEF, most recent 37% in 01/2024. In May she was found to be in AF on device checks, placed on Eliquis, she has had decline in Hgb, was recently hospitalized 06/2024 with Hgb 5.7, transfused 2 units, found GIB from right sided colonic mass; EGD unremarkable, colonoscopy showed ascending colonic mass suspicious for malignancy s/p hemicolectomy 06/25/2024; she was eventually resumed on Asa. She was told that mass was cancerous, removed and no need for further treatment other than surveillance. She continues to bruise easily, no other recent s/s bleeding. She feels fair currently, unaware of palpitations, rare dyspnea, dizziness with low BPs. She does take Midodrine prior to dialysis. She has R arm AV fistula. Oncology: Camila Curtis GI: Amadeo Manzanares PAST MEDICAL HISTORY Diagnosis Date Anemia Atrial fibrillation (HCC) 05/2024 Biventricular ICD (implantable cardioverter-defibrillator) in place 12/2022 new RV and LBB pace/sense lead, upgrade BiV ICD, RA and CS (previously placed) were inserted in RA, CS ports, new left bundle lead was placed to RV pace/sense port, distal coil ICD pin was placed to distal coil port, proximal coil ICD port was plugged, old RV lead was capped, ICD lead pace/sense terminal pin was capped. Chronic venous insufficiency Diverticulitis DM2 (diabetes mellitus, type 2) (HCC) ESRD (end stage renal disease) on dialysis (HCC) 04/27/2021 History of restrictive pulmonary disease HTN (hypertension) Obesity Secondary hyperparathyroidism of renal origin (HCC) UTI (urinary tract infection) PAST SURGICAL HISTORY Procedure Laterality Date AV FISTULA PLACEMENT HX Right CARDIAC PACEMAKER PLACEMENT HX 02/04/2017 LAPAROSCOPIC CHOLECYSTECTOMY 03/13/2012 RIGHT HEART CATHERIZATION 03/29/2015 TONSILLECTOMY AND ADENOIDECTOMY <AGE 13 SOCIAL HISTORY Social History Tobacco Use Smoking status: Former Current packs/day: 0.00 Average packs/day: 1 pack/day for 20.0 years (20.0 ttl pk-yrs) Types: Cigarettes Start date: 1959 Quit date: 1979 Years since quittin.8 Smokeless tobacco: Never Vaping Use Vaping status: Never Used Substance Use Topics Alcohol use: Not Currently Drug use: Never FAMILY HISTORY Problem Relation Age of Onset Heart disease Mother Heart disease Father Diabetes Father ALLERGIES: ALLERGIES Allergen Reactions Ibuprofen Mental Status Change, Other: See Comments Tricyclic Antidepre* Contraindication-Medical Surgical Doxycycline Unknown Fluoxetine Unknown Metoprolol Unknown Tetracyclic Antidep* Other: See Comments palpitations MEDICATIONS: predniSONE (DELTASONE) 2.5 mg tablet Take 1 tablet by mouth once daily. bisoprolol (ZEBETA) 5 mg tablet Take 2.5 mg by mouth on Friday, Friday, Friday and Friday. midodrine (PROAMATINE) 10 mg tablet TAKE ONE TABLET BY MOUTH EVERY DAY fri/fri/fri ON dialysis DAYS prior TO dialysis folic acid/vit B complex and C (DIALYVITE 800 ORAL) Take 800 mg by mouth once daily. sucroferric oxyhydroxide (VELPHORO) 500 mg chew Take 500 mg by mouth three times daily with meals. brimonidine (ALPHAGAN P) 0.1 % drop Use 1 Drop in the right eye twice daily. fluorometholone (FML LIQUID FILM) 0.1 % ophthalmic suspension Use 1 Drop in both eyes every other day. aspirin, enteric coated (ASPIRIN, ENTERIC COATED) 81 mg EC tablet Take 81 mg by mouth once daily. Alba Brunson RN PHYSICAL EXAMINATION: BP 110/68 Pulse 90 Ht 157.5 cm (5' 2) Wt 95.3 kg (210 lb) BMI 38.41 kg/m? Physical Exam Constitutional: Appearance: She is well-developed. Neck: Vascular: No JVD. Cardiovascular: Rate and Rhythm: Normal rate and regular rhythm. Pulmonary: Effort: Pulmonary effort is normal. Breath sounds: Normal breath sounds. Abdominal: General: Bowel sounds are normal. Palpations: Abdomen is soft. Musculoskeletal: General: Normal range of motion. Cervical back: Normal range of motion. Skin: General: Skin is warm and dry. Neurological: Mental Status: She is alert and oriented to person, place, and time. Psychiatric: Thought Content: Thought content normal. CARDIOVASCULAR MEDICINE TESTING: EKG TODAY Last ECHO Result Conclusion ECHO Collected: 02/05/2024 3:35 PM (Final result) Impression: CONCLUSIONS: - Technically difficult exam due to body habitus and due to restless leg. - Exam indication: H/O Heart Failure - The left ventricle is severely dilated. Left ventricular systolic function is moderately decreased. EF = 37 ? 5% (2D biplane) Left ventricular diastolic function was not evaluated due to >2+ MR. - The right ventricle is normal in size. Right ventricular systolic function is low normal. - The left atrial cavity is severely dilated. - There is moderate (2+) mitral valve regurgitation due to restricted leaflet motion. - Tricuspid aortic valve. There is moderate aortic valve stenosis caused by calcified valve and restricted opening. AV area is 1.01 cm? (0.49 cm?/m?) by continuity, VTI. The peak gradient is 38 mmHg, the mean gradient is 20 mmHg and the dimensionless valve index is 0.22. Prior peak/mean gradients of 39/19 mmHg, DI 0.28. AV morphology best seen in clips 20-21. - Exam was compared with the prior CC echocardiographic exam performed on 09/25/2023. Decrease in RVSP (prior RVSP of 49 mmHg). Prior reported LVEF 25% though appears similar on [id number]-[id number] review. * * * Final * * * IMPRESSION: Ms. Coyle is a 74 year old female who presents for follow up visit with biventricular ICD and recent diagnosis of AF. She has a past medical history of diabetes, pulmonary restrictive disease requiring 3L oxygen at night with BiPap, end-stage renal disease on dialysis, hypertension, nonischemic cardiomyopathy, nonobstructive coronary disease, and complete heart block s/p ELECTRONICS TESTER-P in 2017. She had declining LV function (EF 26%) and underwent device revision with new RV and LBB pace/sense lead, upgrade BiV ICD in 2022 with some improvement in EF, most recently 45%. AF diagnosed on device check in May and anticoagulation started. Apixaban then held with GI bleeding. GIB from right sided colonic mass; EGD unremarkable, colonoscopy showed ascending colonic mass suspicious for malignancy > hemicolectomy 06/25/2024. Fortunately she is now doing well and I think acceptable risk to restart apixaban which she has agreed to do today. If future bleeding or intolerance then plan to offer LAAO with watchman device. PLAN AND RECOMMENDATIONS: NICM: GDMT and follow up per Dr Jung and Alyssia ELECTRONICS TESTER-D: device follow up q3mos and annual OPD visit PAF: asymptomatic, elevated risk for CVA. Restart apixaban, if GIB again then plan LAAO as above I personally interviewed, confirmed and edited the above information as obtained by others. CONTACT INFORMATION: Farzad Adair MD Allergies As of Date: 08/12/2024 Noted Allergy Reaction IBUPROFEN 05/17/2021 1 - Mental Status Change 14 - Other: See Comments TRICYCLIC ANTIDEPRESSANTS AND TRI*05/31/2021 15 - Contraindication-Medical Prado* DOXYCYCLINE 02/26/2024 16 - Unknown FLUOXETINE 02/26/2024 16 - Unknown METOPROLOL 02/26/2024 16 - Unknown TETRACYCLIC ANTIDEPRESSANTS 08/08/2022 14 - Other: See Comments Comments: palpitations Date Reviewed: 08/12/2024 Reviewed by: Alba Brunson RN - Fully Assessed Primary Visit Diagnosis:Atrial fibrillation, unspecified type (HCC) [I48.91] Other Visit Diagnosis:Hypertension, unspecified type [I10] Order(s):CARDIOVASCULAR MEDICINE OP FOLLOW UP APPT ORDER [[id number]] Order #: [id number]: 1 FUTURE Prescriptions as of 08/12/2024 - aspirin, enteric coated (ASPIRIN, ENTERIC COATED) 81 mg EC tablet Take 81 mg by mouth once daily. - predniSONE (DELTASONE) 2.5 mg tablet Take 1 tablet by mouth once daily. - bisoprolol (ZEBETA) 5 mg tablet Take 2.5 mg by mouth on Friday, Friday, Friday and Friday. - midodrine (PROAMATINE) 10 mg tablet TAKE ONE TABLET BY MOUTH EVERY DAY fri/fri/fri ON dialysis DAYS prior TO dialysis - folic acid/vit B complex and C (DIALYVITE 800 ORAL) Take 800 mg by mouth once daily. - sucroferric oxyhydroxide (VELPHORO) 500 mg chew Take 500 mg by mouth three times daily with meals. - brimonidine (ALPHAGAN P) 0.1 % drop Use 1 Drop in the right eye twice daily. - fluorometholone (FML LIQUID FILM) 0.1 % ophthalmic suspension Use 1 Drop in both eyes every other day. 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 Encounter Status:Closed by FARZAD ADAIR on 08/12/24 PROGRESS Observed: 08/12/2024 8:51 AM Status: COMPLETED Source: [facility] ID: [id number] Author: FARZAD ADAIR MD Service: ? Author Type: Physician Type: Progress Notes Filed: 08/12/2024 13:03 Note Text: [facility] [place] [facility] Department of Cardiovascular Medicine SECTION OF CARDIAC PACING and ELECTROPHYSIOLOGY OUTPATIENT VISIT DATE August 12, 2024 OUTPATIENT VISIT TYPE ESTABLISHED PRIMARY CARE PHYSICIAN: Nolvia Granda NP [address] [place] [address] CHIEF COMPLAINT: follow up AF and BiV ICD HISTORY OF PRESENT ILLNESS: Ms. Coyle is a 74 year old female who presents today for follow-up visit. She has a past medical history of diabetes, pulmonary restrictive disease requiring 3L oxygen at night with BiPap, end-stage renal disease on dialysis, hypertension, nonischemic cardiomyopathy, nonobstructive coronary disease, and complete heart block s/p ELECTRONICS TESTER-P in 2017. She had declining LV function (EF 26%) and underwent device revision with new RV and LBB pace/sense lead, upgrade BiV ICD, RA and CS (previously placed) were inserted in RA, CS ports, new left bundle lead was placed to RV pace/sense port, distal coil ICD pin was placed to distal coil port, proximal coil ICD port was plugged, old RV lead was capped, ICD lead pace/sense terminal pin was capped. TTE in follow up shows persistent reduced LVEF, most recent 37% in 01/2024. In May she was found to be in AF on device checks, placed on Eliquis, she has had decline in Hgb, was recently hospitalized 06/2024 with Hgb 5.7, transfused 2 units, found GIB from right sided colonic mass; EGD unremarkable, colonoscopy showed ascending colonic mass suspicious for malignancy s/p hemicolectomy 06/25/2024; she was eventually resumed on Asa. She was told that mass was cancerous, removed and no need for further treatment other than surveillance. She continues to bruise easily, no other recent s/s bleeding. She feels fair currently, unaware of palpitations, rare dyspnea, dizziness with low BPs. She does take Midodrine prior to dialysis. She has R arm AV fistula. Oncology: Camila Curtis GI: Amadeo Manzanares PAST MEDICAL HISTORY Diagnosis Date Anemia Atrial fibrillation (HCC) 05/2024 Biventricular ICD (implantable cardioverter-defibrillator) in place 12/2022 new RV and LBB pace/sense lead, upgrade BiV ICD, RA and CS (previously placed) were inserted in RA, CS ports, new left bundle lead was placed to RV pace/sense port, distal coil ICD pin was placed to distal coil port, proximal coil ICD port was plugged, old RV lead was capped, ICD lead pace/sense terminal pin was capped. Chronic venous insufficiency Diverticulitis DM2 (diabetes mellitus, type 2) (HCC) ESRD (end stage renal disease) on dialysis (HCC) 04/27/2021 History of restrictive pulmonary disease HTN (hypertension) Obesity Secondary hyperparathyroidism of renal origin (HCC) UTI (urinary tract infection) PAST SURGICAL HISTORY Procedure Laterality Date AV FISTULA PLACEMENT HX Right CARDIAC PACEMAKER PLACEMENT HX 02/04/2017 LAPAROSCOPIC CHOLECYSTECTOMY 03/13/2012 RIGHT HEART CATHERIZATION 03/29/2015 TONSILLECTOMY AND ADENOIDECTOMY <AGE 13 SOCIAL HISTORY Social History Tobacco Use Smoking status: Former Current packs/day: 0.00 Average packs/day: 1 pack/day for 20.0 years (20.0 ttl pk-yrs) Types: Cigarettes Start date: 1959 Quit date: 1979 Years since quittin.8 Smokeless tobacco: Never Vaping Use Vaping status: Never Used Substance Use Topics Alcohol use: Not Currently Drug use: Never FAMILY HISTORY Problem Relation Age of Onset Heart disease Mother Heart disease Father Diabetes Father ALLERGIES: ALLERGIES Allergen Reactions Ibuprofen Mental Status Change, Other: See Comments Tricyclic Antidepre* Contraindication-Medical Surgical Doxycycline Unknown Fluoxetine Unknown Metoprolol Unknown Tetracyclic Antidep* Other: See Comments palpitations MEDICATIONS: predniSONE (DELTASONE) 2.5 mg tablet Take 1 tablet by mouth once daily. bisoprolol (ZEBETA) 5 mg tablet Take 2.5 mg by mouth on Friday, Friday, Friday and Friday. midodrine (PROAMATINE) 10 mg tablet TAKE ONE TABLET BY MOUTH EVERY DAY fri/fri/fri ON dialysis DAYS prior TO dialysis folic acid/vit B complex and C (DIALYVITE 800 ORAL) Take 800 mg by mouth once daily. sucroferric oxyhydroxide (VELPHORO) 500 mg chew Take 500 mg by mouth three times daily with meals. brimonidine (ALPHAGAN P) 0.1 % drop Use 1 Drop in the right eye twice daily. fluorometholone (FML LIQUID FILM) 0.1 % ophthalmic suspension Use 1 Drop in both eyes every other day. aspirin, enteric coated (ASPIRIN, ENTERIC COATED) 81 mg EC tablet Take 81 mg by mouth once daily. Alba Brunson RN PHYSICAL EXAMINATION: BP 110/68 Pulse 90 Ht 157.5 cm (5' 2) Wt 95.3 kg (210 lb) BMI 38.41 kg/m? Physical Exam Constitutional: Appearance: She is well-developed. Neck: Vascular: No JVD. Cardiovascular: Rate and Rhythm: Normal rate and regular rhythm. Pulmonary: Effort: Pulmonary effort is normal. Breath sounds: Normal breath sounds. Abdominal: General: Bowel sounds are normal. Palpations: Abdomen is soft. Musculoskeletal: General: Normal range of motion. Cervical back: Normal range of motion. Skin: General: Skin is warm and dry. Neurological: Mental Status: She is alert and oriented to person, place, and time. Psychiatric: Thought Content: Thought content normal. CARDIOVASCULAR MEDICINE TESTING: EKG TODAY Last ECHO Result Conclusion ECHO Collected: 02/05/2024 3:35 PM (Final result) Impression: CONCLUSIONS: - Technically difficult exam due to body habitus and due to restless leg. - Exam indication: H/O Heart Failure - The left ventricle is severely dilated. Left ventricular systolic function is moderately decreased. EF = 37 ? 5% (2D biplane) Left ventricular diastolic function was not evaluated due to >2+ MR. - The right ventricle is normal in size. Right ventricular systolic function is low normal. - The left atrial cavity is severely dilated. - There is moderate (2+) mitral valve regurgitation due to restricted leaflet motion. - Tricuspid aortic valve. There is moderate aortic valve stenosis caused by calcified valve and restricted opening. AV area is 1.01 cm? (0.49 cm?/m?) by continuity, VTI. The peak gradient is 38 mmHg, the mean gradient is 20 mmHg and the dimensionless valve index is 0.22. Prior peak/mean gradients of 39/19 mmHg, DI 0.28. AV morphology best seen in clips 20-21. - Exam was compared with the prior CC echocardiographic exam performed on 09/25/2023. Decrease in RVSP (prior RVSP of 49 mmHg). Prior reported LVEF 25% though appears similar on [id number] review. * * * Final * * * IMPRESSION: Ms. Coyle is a 74 year old female who presents for follow up visit with biventricular ICD and recent diagnosis of AF. She has a past medical history of diabetes, pulmonary restrictive disease requiring 3L oxygen at night with BiPap, end-stage renal disease on dialysis, hypertension, nonischemic cardiomyopathy, nonobstructive coronary disease, and complete heart block s/p ELECTRONICS TESTER-P in 2016. She had declining LV function (EF 26%) and underwent device revision with new RV and LBB pace/sense lead, upgrade BiV ICD in 2022 with some improvement in EF, most recently 45%. AF diagnosed on device check in May and anticoagulation started. Apixaban then held with GI bleeding. GIB from right sided colonic mass; EGD unremarkable, colonoscopy showed ascending colonic mass suspicious for malignancy > hemicolectomy 06/25/2024. Fortunately she is now doing well and I think acceptable risk to restart apixaban which she has agreed to do today. If future bleeding or intolerance then plan to offer LAAO with watchman device. PLAN AND RECOMMENDATIONS: NICM: TERENCET and follow up per Dr Jung and Alyssia ELECTRONICS TESTER-D: device follow up q3mos and annual OPD visit PAF: asymptomatic, elevated risk for CVA. Restart apixaban, if GIB again then plan LAAO as above I personally interviewed, confirmed and edited the above information as obtained by others. CONTACT INFORMATION: Farzad Adair MD ECG COMPLETE Observed: 08/12/2024 8:21 AM Status: F Source: [facility] Ventricular Rate : 93 BPM Atrial Rate : 92 BPM P-R Interval : 166 ms QRS Duration : 158 ms Q-T Interval : 420 ms QTC Calculation(Bazett) : 522 ms Calculated P [place] : 76 degrees Calculated R [place] : 134 degrees Calculated T [place] : -29 degrees ATRIAL-SENSED VENTRICULAR-PACED RHYTHM WITH PREMATURE SUPRAVENTRICULAR COMPLEXES AND WITH OCCASIONAL PREMATURE VENTRICULAR COMPLEXES ABNORMAL ECG Confirmed by ZOEY SAMUELS MD ([id number]) on 09/20/2024 11:45:23 AM NAME : CINDY COYLE PID : [id number] : 1950 Gender : Female Race : ORD : [id number] Procedure Date : Aug 12 2024 08:21:37 Edit Date : Sep 20 2024 11:45:28 Diagnosis: ATRIAL-SENSED VENTRICULAR-PACED RHYTHM WITH PREMATURE SUPRAVENTRICULAR COMPLEXES AND WITH OCCASIONAL PREMATURE VENTRICULAR COMPLEXES ABNORMAL ECG Confirmed by ZOEY SAMUELS MD ([id number]) on 09/20/2024 11:45:23 AM Test Reason : B/P DONE IN CHAIR Location : [facility] : J14 J14 Overread By : ZOEY SAMUELS MD Edited By : ZOEY SAMUELS MD Referred By : , Acquired by : ELIZABETH WONG CBC + DIFF Collected: 4 5:55 AM Status: F Source: [facility] TYPE CODE TESTS RESULT OUT OF RANGE REFERENCE UNITS LAB CBC + DIFF(LOINC) CBC + DIFF Result Comment: CBC-COMPLETE BLOOD COUNT LAB WBC(LOINC) WBC 5.3 4.5 - 10.8 x 10EE3/UL LAB RBC(LOINC) RBC 2.49 Low 4.10 - 5.30 x 10EE6/UL LAB HEMOGLOBIN([facility]) HEMOGLOBIN 7.2 Low 12.0 - 16.0 g/dl LAB HEMATOCRIT([facility]) HEMATOCRIT 23.8 Low 34.0 - 46.0 % LAB MCV(LOINC) MCV 96 80 - 99 fl LAB MCH(LOINC) MCH 29 27 - 33 pg LAB MCHC(LOINC) MCHC 31 Low 32 - 36 X10 3 LAB RDW/CV(LOINC) RDW/CV 17.0 High 12.0 - 15.6 % LAB PLATELET(LOINC ) PLATELET 295 150 - 450 x10EE3/UL LAB MPV(LOINC) MPV 7.9 6.6 - 10.5 fl Result Comment: AUTOMATED DI FFERENTIAL LAB NEUT %(LOINC) NEUT % 64.4 46.0 - 76.0 % LAB LYMPH %(LOINC) LYMPH % 15.0 Low 20.0 - 45.0 % LAB MONOS %(LOINC) MONOS % 11.9 High 0.0 - 10.0 % LAB EO %(LOINC) EO % 8.4 High 0.0 - 7.0 % LAB BASO %(LOINC) BASO % 0.2 0.0 - 2.0 % LAB Lymph #(LOINC) Lymph # 0.79 Low 0.80 - 2.80 x10EE 3/UL LAB Neut #(LOINC) Neut # 3.39 1.50 - 7.10 x10EE3 /UL LAB [place] #(LOINC) [place] # 0.63 0.20 - 1.00 x10EE3 /UL LAB EO #(LOINC) EO # 0.44 0.00 - 0.50 x10EE3/U L LAB Baso #(LOINC) Baso # 0.01 0.00 - 0.10 x10EE3 /UL LAB MANUAL DIFF(LOINC) MANUAL DIFF N/A LAB MORPHOLOGY([facility]) MORPHOLOGY N/A Performed By: #### [id number] ## ## [facility],[address] [place] [address] PROGRESS Observed: 07/22/2024 11:13 AM Status: COMPLETED Source: [facility] HNO ID: [id number] Author: JORGE A SETHI PA-C Service: ? Author Type: Physician Direct Mail Marketer Type: Progress Notes Filed: 07/26/2024 18:13 Note Text: Sarcoidosis and Interstitial Lung Disease Program Respiratory [place] Outpatient Virtual Visit Cindy Coyle has consented to this visit. Persons present to visit: Cindy Coyle I have communicated my name and active licensure. The patient's identity and physical location were verified at the time of this visit. Either the patient or their legal customer solutions representative has been informed of the risks and benefits of -- and alternatives to -- treatment through a remote evaluation and consents to proceed with the evaluation remotely. Cindy Coyle is a 73 year old y/o female who presents for f/u visit for sarcoidosis. She is on eliquis. She went to ED on 06/23 for low BP. She was found to be anemic. She states there was concerns her anemia was from the eliquis. When in the ED, there was apparently as small mass found in her colon. She had biopsies that showed a small amount of ? Cancer cells. She states at least 14 surrounding biopsies were completed and all were negative. She states they saw spots on her liver but those biopsies were also negative for cancer cells. I do not have any of these records. She is current in a rehab facility to gain her strenth back after this admission. She is back on prednisone there was concern for increasing her immunosuppression based on lower EF. ECHO 02/05/24 EF 37%. She had a NM cardiac stress on 05/29/24 that was negative of inducible ischemia. There was small fixed perfusion detect in the LAD region. Large fixed perfusion defect int he RCA territory. LV is mild dilated with severely reduced systolic function. Last cPET was 09/25/23 that showed moderate amount of myocarditis. There was discussion on starting infliximab. But we need more follow up and review records from her colon biopsy first. Is Sarcoidosis confirmed?: Yes- biopsy Sarcoidosis History: Interval development of possible Sarcoidosis manifestations (related to previously uninvolved organs): No new symptoms What organs are affected?: Eyes, Heart, Hypercalcemia/Hypercalciuria , Liver, Non-Thoracic Lymph Node Pulmonary hypertension: No suspicion Sarcoidosis Therapies: Current medications: Prednisone Treatment-defining organ: Heart Is the patient being treated with oxygen therapy?: No Current Outpatient Medications Medication Sig apixaban (ELIQUIS) 5 mg tab(s) Take 1 tablet by mouth two times a day. predniSONE (DELTASONE) 2.5 mg tablet Take 1 tablet by mouth once daily. bisoprolol (ZEBETA) 5 mg tablet Take 2.5 mg by mouth on Friday, Friday, Friday and Friday. adalimumab (HUMIRA,CF,) 40 mg/0.4 mL syringe kit Inject 40 mg subcutaneously every 2 weeks. midodrine (PROAMATINE) 10 mg tablet TAKE ONE TABLET BY MOUTH EVERY DAY fri/fri/fri ON dialysis DAYS prior TO dialysis folic acid/vit B complex and C (DIALYVITE 800 ORAL) Take 800 mg by mouth once daily. sucroferric oxyhydroxide (VELPHORO) 500 mg chew Take 500 mg by mouth three times daily with meals. brimonidine (ALPHAGAN P) 0.1 % drop Use 1 Drop in the right eye twice daily. fluorometholone (FML LIQUID FILM) 0.1 % ophthalmic suspension Use 1 Drop in both eyes every other day. No current facility-administered medications for this visit. PAST MEDICAL HISTORY Diagnosis Date Anemia Chronic venous insufficiency Diverticulitis DM2 (diabetes mellitus, type 2) ([facility]) ESRD (end stage renal disease) on dialysis ([facility]) 04/27/2021 History of restrictive pulmonary disease HTN (hypertension) Obesity Secondary hyperparathyroidism of renal origin ([facility]) UTI (urinary tract infection) V-tach ([facility]) PAST SURGICAL HISTORY Procedure Laterality Date AV FISTULA PLACEMENT HX Right CARDIAC PACEMAKER PLACEMENT HX 02/04/2017 LAPAROSCOPIC CHOLECYSTECTOMY 03/13/2012 RIGHT HEART CATHERIZATION 03/29/2015 TONSILLECTOMY AND ADENOIDECTOMY <AGE 13 Social History Tobacco Use Smoking status: Former Current packs/day: 0.00 Average packs/day: 1 pack/day for 20.0 years (20.0 ttl pk-yrs) Types: Cigarettes Start date: 1959 Quit date: 1979 Years since quittin.8 Smokeless tobacco: Never Vaping Use Vaping status: Never Used Substance Use Topics Alcohol use: Not Currently Drug use: Never Creatinine Date Value Ref Range Status 05/29/2024 5.41 (H) 0.51 - 0.95 mg/dL Final Comment: Patients receiving either N-Acetylcysteine (NAC) or Metamizole prior to venipuncture, may have falsely depressed results. 05/28/2024 5.45 (H) 0.51 - 0.95 mg/dL Final Comment: Patients receiving either N-Acetylcysteine (NAC) or Metamizole prior to venipuncture, may have falsely depressed results. 02/05/2024 4.81 (H) 0.58 - 0.96 mg/dL Final 10/28/2023 5.33 (H) 0.58 - 0.96 mg/dL Final 09/25/2023 3.77 (H) 0.58 - 0.96 mg/dL Final Calcium, Total Date Value Ref Range Status 05/29/2024 9.3 8.5 - 10.5 mg/dL Final 05/28/2024 9.9 8.5 - 10.5 mg/dL Final 02/05/2024 9.5 8.5 - 10.2 mg/dL Final 10/28/2023 9.9 8.5 - 10.2 mg/dL Final 09/25/2023 9.9 8.5 - 10.2 mg/dL Final PTH, Intact Date Value Ref Range Status 05/02/2022 16 15 - 65 pg/mL Final AST Date Value Ref Range Status 05/28/2024 21 8 - 34 U/L Final Comment: Results may be falsely depressed after the administration of Sulfasalazine and/or Sulfapyridine. 02/05/2024 20 13 - 35 U/L Final 10/28/2023 18 13 - 35 U/L Final 08/27/2022 17 13 - 35 U/L Final 05/02/2022 21 13 - 35 U/L Final ALT Date Value Ref Range Status 05/28/2024 16 13 - 61 U/L Final Comment: Results may be falsely depressed after the administration of Sulfasalazine and/or Sulfapyridine. 02/05/2024 31 7 - 38 U/L Final 10/28/2023 18 7 - 38 U/L Final 08/27/2022 12 7 - 38 U/L Final 05/02/2022 14 7 - 38 U/L Final Alkaline Phosphatase Date Value Ref Range Status 05/28/2024 103 45 - 117 U/L Final 02/05/2024 76 34 - 123 U/L Final 10/28/2023 79 34 - 123 U/L Final 08/27/2022 86 34 - 123 U/L Final 05/02/2022 82 34 - 123 U/L Final Albumin Date Value Ref Range Status 05/28/2024 3.1 (L) 3.2 - 5.0 g/dL Final 02/05/2024 3.9 3.9 - 4.9 g/dL Final 10/28/2023 3.9 3.9 - 4.9 g/dL Final 08/27/2022 4.1 3.9 - 4.9 g/dL Final 05/02/2022 4.1 3.9 - 4.9 g/dL Final INR Date Value Ref Range Status 05/02/2022 1.0 0.9 - 1.3 Final Comment: Vitamin K Antagonist (VKA) Therapeutic Range: INR 2 to 3 (Target INR of 2.5) Note: For patients treated with VKA drugs, such as warfarin, the [place] [employer] 2012 Guideline recommends a therapeutic INR range of 2 to 3 (target INR of 2.5). This recommendation includes high-risk patients with antiphospholipid syndrome with previous arterial or venous thromboembolism, current-generation mechanical or bioprosthetic aortic heart valve replacement. Note: Patients with mechanical aortic valve replacement and additional risk factors for thromboembolic events (atrial fibrillation, previous thromboembolism, LV dysfunction, hypercoagulable conditions) or an older generation mechanical AVR (i.e., ball in-Cage) or any mechanical MVR should have a INR therapeutic range of 2.5 to 3.5 (target INR of 3). Win GH, et al. Chest 2012, 141:7S-47S Eladio RA, et al. [facility] 2017, 70: 252-289 Platelet Count Date Value Ref Range Status 05/29/2024 308 150 - 400 k/uL Final WBC Date Value Ref Range Status 05/29/2024 10.65 3.70 - 11.00 k/uL Final 05/28/2024 11.85 (H) 3.70 - 11.00 k/uL Final 02/05/2024 13.79 (H) 3.70 - 11.00 k/uL Final 08/26/2023 9.22 3.70 - 11.00 k/uL Final 12/26/2022 6.23 3.70 - 11.00 k/uL Final Hemoglobin Date Value Ref Range Status 05/29/2024 11.1 (L) 11.5 - 15.5 g/dL Final 05/28/2024 11.4 (L) 11.5 - 15.5 g/dL Final 02/05/2024 9.3 (L) 11.5 - 15.5 g/dL Final 08/26/2023 11.7 11.5 - 15.5 g/dL Final 12/26/2022 11.3 (L) 11.5 - 15.5 g/dL Final Pre immunosuppression labs Hepatitis panel Hepatitis B Core Ab, Total Date Value Ref Range Status 02/05/2024 Negative Negative Final Comment: No evidence of current or past infection with Hepatitis B virus. Should recent infection be suspected, repeat testing may be considered 3-4 weeks after this draw. Hep C Antibody IA Date Value Ref Range Status 02/05/2024 Negative Negative Final Comment: The result suggests no evidence of active infection with Hepatitis C virus. Should recent infection be suspected, repeat testing may be considered 4-6 weeks after this draw. Hep B Surface Ab, Qual Date Value Ref Range Status 05/28/2024 Negative Final Comment: No serological evidence of immunity to Hepatitis B Virus. TB quant TB Nil Date Value Ref Range Status 02/12/2024 0.02 <=8.00 IU/mL Final TB1 Ag minus Nil Date Value Ref Range Status 02/12/2024 0.00 <0.35 IU/mL Final TB2 Ag minus Nil Date Value Ref Range Status 02/12/2024 0.00 <0.35 IU/mL Final Mitogen minus Nil Date Value Ref Range Status 02/12/2024 0.28 (L) >=0.50 IU/mL Final TB Gamma Interpretation Date Value Ref Range Status 02/12/2024 Final This result is indeterminate for Mycobacterium tuberculosis complex antigen responsiveness. Specimens from immunocompromised patients, those <5 years of age, and those with a known recent exposure may fall under this category. Please correlate with clinical picture and other alternative assessments. TPMT No results found for: TPMTACT G6PD No results found for: G6PDQT Virtual Physical Exam: Alert, oriented. Respirations unlabored. No signs of distress. Speaking in full sentences. No cough or audible wheezing noted. No rash or lesions noted. MRC Dyspnea Scale: Not troubled by breathlessness except on strenuous exercise Short of breath when hurrying or walking up a slight hill Walks slower than contemporaries on the level because of breathlessness, or has to stop for breath when walking at own pace Stops for breath after about 100 m or after a few minutes on the level Too breathless to leave the house, or breathless when dressing or undressing Health Risks: Cindy Coyle is not having pain related to the reason for this visit. Data Reviewed (in addition to that noted in HPI, and Past histories above): Is a new CT available: No Was a new echo performed?: No Was a new right heart catheterization performed?: No SARCOIDOSIS CHECKLIST Is the patient being referred for transplantation?: No ASSESSMENT Cindy Coyle is a 73 year old year old female with multisystem sarcoidosis. Treatment target is cardiac. She had PET 09/2023 that has moderate amount of myocarditis. EF is reduced. Last EF 37%. She is off humira. Prednisone 10mg currently. She was recently hospitalized and found small mass in colon. Apparently this area showed cancer cells but she states was very small. Surrounding biopsies were negative. Will need to review those records before considering starting infliximab. PLAN Sarcoidosis medications after visit: prednisone Follow up as scheduled I spent 20+ minutes face to face with the patient via Zoom platform. >50% of that time was spent counseling and coordinating care regarding interpretation of symptoms and tests and diagnostic and therapeutic options. FRANCISCO Benson, PA-C CNPN Observed: 07/15/2024 12:00 AM Status: COMPLETED Source: [facility] Telephone (CAEPMN) COYLECINDY ([id number]) 1950 F Date Time Provider Department 07/15/24 FARZAD ADAIR CAEPMN During your visit today, we recorded the following information about you: Janel Aguirre 07/15/2024 2:28 PM Signed Pt would like to know if she is in AFIB, pt can be reached at [phone] Aimee Fleming, ROXANE 07/15/2024 3:57 PM Signed Returned patient call and left voicemail Allergies As of Date: 07/15/2024 Noted Allergy Reaction IBUPROFEN 05/17/2021 1 - Mental Status Change 14 - Other: See Comments TRICYCLIC ANTIDEPRESSANTS AND TRI*05/31/2021 15 - Contraindication-Medical [place]* DOXYCYCLINE 02/26/2024 16 - Unknown FLUOXETINE 02/26/2024 16 - Unknown METOPROLOL 02/26/2024 16 - Unknown TETRACYCLIC ANTIDEPRESSANTS 08/08/2022 14 - Other: See Comments Comments: palpitations Date Reviewed: 06/03/2024 Reviewed by: Primitivo Cummins MA - Fully Assessed Prescriptions as of 07/15/2024 - apixaban (ELIQUIS) 5 mg tab(s) Take 1 tablet by mouth two times a day. - predniSONE (DELTASONE) 2.5 mg tablet Take 1 tablet by mouth once daily. - bisoprolol (ZEBETA) 5 mg tablet Take 2.5 mg by mouth on Friday, Friday, Friday and Friday. - adalimumab (HUMIRA,CF,) 40 mg/0.4 mL syringe kit Inject 40 mg subcutaneously every 2 weeks. - midodrine (PROAMATINE) 10 mg tablet TAKE ONE TABLET BY MOUTH EVERY DAY fri/fri/fri ON dialysis DAYS prior TO dialysis - folic acid/vit B complex and C (DIALYVITE 800 ORAL) Take 800 mg by mouth once daily. - sucroferric oxyhydroxide (VELPHORO) 500 mg chew Take 500 mg by mouth three times daily with meals. - brimonidine (ALPHAGAN P) 0.1 % drop Use 1 Drop in the right eye twice daily. - fluorometholone (FML LIQUID FILM) 0.1 % ophthalmic suspension Use 1 Drop in both eyes every other day. Problem List As Of Date 07/15/2024 Noted Resolved Body mass index (BMI) 40.0-44.9, adult (HCC) [Z*02/03/2023 Chronic systolic congestive heart failure (HCC)*02/03/2023 Atrioventricular block, complete (HCC) [I44.2] 02/03/2023 Non-ischemic cardiomyopathy (HCC) [I42.8] 04/10/2023 Cardiac resynchronization therapy pacemaker (CR*04/10/2023 Cardiac resynchronization therapy defibrillator*04/10/2023 Sarcoidosis of lung (HCC) [D86.0] 10/29/2023 Atypical chest pain [R07.89] 05/28/2024 NICM (nonischemic cardiomyopathy) (HCC) [I42.8] 05/29/2024 Chronic systolic CHF (congestive heart failure)*05/29/2024 Equivocal stress test [R94.39] 05/30/2024 Chronic combined systolic and diastolic congest*05/30/2024 Encounter Status:Closed by AIMEE FLEMING on 07/15/24 ALLERGIES DATE TYPE / CODE NAME / CODE REACTION SEVERITY SOURCE 02/26/2024 DRUG INGREDI/419 915533(SNOM ED CT) DOXYCYCLINE UNKNOWN [facility] 02/26/2024 DRUG INGREDI/419 528573(SNOM ED CT) FLUOXETINE UNKNOWN [facility] 02/26/2024 DRUG INGREDI/419 710205(SNOM ED CT) METOPROLOL UNKNOWN [facility] 08/08/2022 Drug Class/83323 1003(SNOMED CT) TETRACYCLIC ANTIDEPRESSANTS OTHER: SEE C [facility] 05/31/2021 Drug Class/70919 1003(SNOMED CT) TRICYCLIC ANTIDEPRESSANTS AND TRICYCLIC COMPOUNDS CONTRAINDICA Med [facility] 05/17/2021 DRUG INGREDI/419 859444(SNOM ED CT) IBUPROFEN [facility] Drug Allergy/416 309953(SNOM ED CT) IBUPROFEN/45982188(RX NORM) Moderate (Severity Modifier) (Qualifier Value) [facility] Drug Allergy/416 962018(SNOM ED CT) ANTIDEPRESSANTS/35717 248(RXNORM) Moderate (Severity Modifier) (Qualifier Value) [facility] ENCOUNTERS ADMIT/DISCHARGE ACCOUNT NUMBER ADMITTING ENCOUNTER CLASS LOCATION SOURCE 06/28/2025/06/28/20 [id number] 06/28/2025/06/28/20 [id number] [facility] 06/28/2025/06/28/20 [id number] [facility] 03/01/2025/03/01/20 [id number] MELLISA ZUÑIGA Ambulatory Buildin Room: [address] 02/24/2025/02/25/20 [id number] [facility] 02/24/2025/02/25/20 [id number] [facility]JEFF [facility] 02/04/2025/02/05/20 [id number] CEDRIC LOPEZ MD Amb[facility] [facility] 01/20/2025/01/21/20 [id number] Ambulatory ABuilding:[facility] 01/20/2025/01/21/20 [id number] Ambulatory ABuilding:[facility] 12/24/2024/12/25/19 [id number] MANUEL MESA Ambulatory Building:[facility] 12/23/2024/12/24/19 [id number] [facility]ARCENIO [facility] 12/23/2024 [id number] [facility]JAY [facility] 12/23/2024/12/24/19 [id number] [facility]RANJANA [facility] 12/23/2024/12/25/19 [id number] [facility]ARABELLA [facility] 11/09/2024/11/09/19 [id number] [facility]LEONARD [facility] 11/04/2024/11/04/19 25 [id number] [facility]ARCENIO [facility] 11/04/2024/11/04/19 25 [id number] [facility]:RANJANA [facility] 11/04/2024/11/04/19 25 [id number] [facility]ARCENIO [facility] 11/04/2024 [id number] [facility]:JAY [facility] 11/04/2024/11/04/19 [id number] [facility] Hospital[facility]il ding:RCTJ [facility] 11/04/2024/11/04/19 [id number] [facility] Hospital[facility]il ding:LB16 [facility] 09/02/2024/09/02/20 24 [id number] [facility] Hospital[facility]:PULM [facility] 09/02/2024/09/02/20 24 [id number] [facility] Hospital[facility]:CAHF [facility] 08/12/2024/08/12/20 24 [id number] [facility] HospitalBuil ding:CARD [facility] 08/12/2024 [id number] [facility] Hospital[facility]il ding:CAEPMN [facility] 08/12/2024/08/12/20 24 [id number] [facility] Hospital[facility]:EKGF [facility] 07/22/2024/07/22/20 24 [id number] [facility] HospitalBuil ding:PULM [facility] 07/05/2024 [id number] SKYLA MARX Ambulatory Building:[facility] PAYERS ENCOUNTER GUARANTOR PAYER SUBSCRIBER [employer] 06/28/2025 Primary Insurance:PRIMETIME HMO POSPolicy Number: [id number] Date:3111-65-25Vxrb Name:Raiza ROBLES: [id number] [address] [place] [address] [facility] 06/28/2025 Secondary Insurance:AETNA INDEMNITYPolicy Number: [id number] Date:7504-03-36Nkje Name:Tyler ROBLES: [id number] [address] [address] [facility] 06/28/2025 Primary Insurance:PRIMETIME HMO POSPolicy Number: [id number] Date:8114-17-81Zolr Name:Raiza ROBLES: [id number] [address], [place] [address] [facility] 06/28/2025 Secondary Insurance:AETNA INDEMNITYPolicy Number: [id number] Date:0719-78-48Xojw Name:Tyler ROBLES: [id number] [address], [place] [address] [facility] 06/28/2025 Primary Insurance:PRIMETIME HMO POSPolicy Number: [id number] Date:5736-34-34Ensq Name:Raiza ROBLES: [id number] [address], [place] [address] [facility] 06/28/2025 Secondary Insurance:AETNA INDEMNITYPolicy Number: [id number] Date:0764-54-86Qhlg Name:Tyler MAYESDaendre: [id number] [address], [place] [address] [facility] 03/01/2025 CINDY MAYESDeandre: [id number] [address] [id number]: () Primary Insurance:PRIMETIME MEDICARE OUTPATIENTPolicy Number: [id number] Date:Plan Name:Janie ROBLES: [id number] [address] [id number] [facility] 03/01/2025 Secondary Insurance:AETNA COMMERCIAL OUTPATIENTPolicy Number: [id number] Date:Plan Name:Kia MAYESDeandre: [id number] [address] [id number] [facility] 02/24/2025 Primary Insurance:PRIMETIME HMO POSPolicy Number: [id number] Date:4225-23-32Rpan Name:Raiza MAYESDeandre: [id number] [address], [place] [address] [facility] 02/24/2025 Secondary Insurance:AETNA INDEMNITYPolicy Number: [id number] Date:5536-12-01Gkzz Name:Tyler MAYESB: [id number] [address], [place] [address] [facility] 02/24/2025 Primary Insurance:PRIMETIME HMO POSPolicy Number: [id number] Date:3288-66-86Aagp Name:Raiza MAYESB: [id number] [address], [place] [address] [facility] 02/24/2025 Secondary Insurance:AETNA INDEMNITYPolicy Number: [id number] Date:3857-37-46Bkru Name:Tyler MAYESB: [id number] [address] [place] [address] [facility] 01/20/2025 CINDY COYLEB: [address] [place] [address], [place] [address]~[email or web address]: (HP) Primary Insurance:PRIMETIME INSCOPolicy Number: [id number] Date:7440-69-58Ebya Name:[address], [place] [address]ZA: CINDY MAYESB: [id number] [address] [place] [address]Xgq: (HP) (WP) [facility] 01/20/2025 Secondary Insurance:AETNA INSCOPolicy Number: [id number] Date:2548-56-02Nixt Name:PUBLICATION MANAGER [id number] [place] [address]AS: CINDY COYLEDOB: [id number] [address] [place] [address]Idm: (HP) (WP) [facility] 01/20/2025 CINDY COYLEB: [address] [place] [phone]~[email or web address] BRANSONel: (HP) Primary Insurance:PRIMETIME INSCOPolicy Number: [id number] Date:5015-33-80Dowb Name:NPCharles [address] [address]GD: CINDY MAYESB: [id number] [address] [place] [address]Xdf: (HP) (WP) [facility] 01/20/2025 Secondary Insurance:AETNA INSCOPolicy Number: [id number] Date:3143-74-31Uvwv Name:PUBLICATION MANAGER [place] [address] [address]LC: CINDY MAYESB: [id number] [address] [address]Qbo: (HP) (WP) [facility] 12/24/2024 CINDY MAYESB: [id number] [place] [id number]: (HP) Primary Insurance:PRIMETIME MEDICARE OUTPATIENTPolicy Number: [id number] Date:Plan Name:P1 CINDY Sloan MAYESB: [id number] [facility] [address] [id number] [facility] 12/24/2024 Secondary Insurance:AETNA COMMERCIAL OUTPATIENTPolicy Number: [id number] Date:Plan Name:A1 CINDY Sloan MAYESB: [id number] [address] [id number] [facility] 12/23/2024 Primary Insurance:PRIMETIME HMO POSPolicy Number: [id number] Date:6926-10-81Gwvd Name:Raiza MAYESB: [id number] [facility] [address] [address] [facility] 12/23/2024 Secondary Insurance:AETNA INDEMNITYPolicy Number: [id number] Date:6805-01-52Tdri Name:Tyler ROBLES: [id number] [address] [place] [address] [facility] 12/23/2024 Primary Insurance:PRIMETIME HMO POSPolicy Number: [id number] Date:3023-37-87Zzbi Name:Raiza MAYESB: [id number] [address] [place] [address] [facility] 12/23/2024 Secondary Insurance:AETNA INDEMNITYPolicy Number: [id number] Date:2458-45-87Rfyv Name:Tyler MAYESDeandre: [id number] [address] [place] [address] [facility] 12/23/2024 Primary Insurance:PRIMETIME HMO POSPolicy Number: [id number] Date:1635-12-39Lwdx Name:Raiza MAYESB: [id number] [address] [place] [address] [facility] 12/23/2024 Secondary Insurance:AETNA INDEMNITYPolicy Number: [id number] Date:3434-66-98Juny Name:Tyler MAYESB: [id number] [address] [place] [address] [facility] 12/23/2024 Primary Insurance:PRIMETIME HMO POSPolicy Number: [id number] Date:3504-57-32Qick Name:Raiza MAYESB: [id number] [address] [place] [address] [facility] 12/23/2024 Secondary Insurance:AETNA INDEMNITYPolicy Number: [id number] Date:9687-48-39Qnti Name:Tyler MAYESB: [id number] [address] [place] [address] [facility] 11/09/2024 Primary Insurance:PRIMETIME HMO POSPolicy Number: [id number] Date:2813-25-62Wyhf Name:Raiza ROBLES: [id number] [address] [place] [address] [facility] 11/09/2024 Secondary Insurance:AETNA INDEMNITYPolicy Number: [id number] Date:5958-74-93Tgor Name:Tyler ROBLES: [id number] [address] [place] [address] [facility] 11/04/2024 Primary Insurance:PRIMETIME HMO POSPolicy Number: [id number] Date:6659-66-32Qwtn Name:Raiza MAYESB: [id number] [address] [address] [facility] 11/04/2024 Secondary Insurance:AETNA INDEMNITYPolicy Number: [id number] Date:8055-58-46Ppuh Name:Tyler MAYESB: [id number] [address] [place] [address] [facility] 11/04/2024 Primary Insurance:PRIMETIME HMO POSPolicy Number: [id number] Date:3519-74-75Gbas Name:Raiza MAYESB: [id number] [address] [place] [address] [facility] 11/04/2024 Secondary Insurance:AETNA INDEMNITYPolicy Number: [id number] Date:5831-80-52Qhrr Name:Tyler MAYESB: [id number] [address] [place] [address] [facility] 11/04/2024 Primary Insurance:PRIMETIME HMO POSPolicy Number: [id number] Date:2953-98-90Txpq Name:Raiza MAYESB: [id number] [address] [place] [address] [facility] 11/04/2024 Secondary Insurance:AETNA INDEMNITYPolicy Number: [id number] Date:9652-10-98Arns Name:Tyler ROBLES: [id number] [address], [place] [address] [facility] 11/04/2024 Primary Insurance:PRIMETIME HMO POSPolicy Number: [id number] Date:5575-44-05Bgpz Name:Raiza ROBLES: [id number] [address], [place] [address] [facility] 11/04/2024 Secondary Insurance:AETNA INDEMNITYPolicy Number: [id number] Date:3546-86-25Zact Name:Tyler ROBLES: [id number] [address] [place] [address] [facility] 11/04/2024 Primary Insurance:PRIMETIME HMO POSPolicy Number: [id number] Date:3150-76-21Jyop Name:Raiza ROBLES: [id number] [address] [place] [address] [facility] 11/04/2024 Secondary Insurance:AETNA INDEMNITYPolicy Number: [id number] Date:3030-21-50Qgpi Name:Tyler MAYESB: [id number] [address] [place] [address] [facility] 11/04/2024 Primary Insurance:PRIMETIME HMO POSPolicy Number: [id number] Date:0530-13-77Xqin Name:Raiza MAYESB: [id number] [address] [address] [facility] 11/04/2024 Secondary Insurance:AETNA INDEMNITYPolicy Number: [id number] Date:2892-01-07Qxbp Name:Tyler ROBLES: [id number] [address] [address] [facility] 09/02/2024 Primary Insurance:PRIMETIME HMO POSPolicy Number: [id number] Date:2770-42-03Lqju Name:Raiza ROBLES: [id number] [address] [place] [address] [facility] 09/02/2024 Secondary Insurance:AETNA INDEMNITYPolicy Number: [id number] Date:1597-82-08Noyn Name:Tyler ROBLES: [id number] [address] [address] [facility] 09/02/2024 Primary Insurance:PRIMETIME HMO POSPolicy Number: [id number] Date:7969-03-81Zpfx Name:Raiza ROBLES: [id number] [address] [place] [address] [facility] 09/02/2024 Secondary Insurance:AETNA INDEMNITYPolicy Number: [id number] Date:5577-00-67Kwik Name:Tyler ROBLES: [id number] [address] [address] [facility] 08/12/2024 Primary Insurance:PRIMETIME HMO POSPolicy Number: [id number] Date:9300-06-99Olvj Name:Raiza ROBLES: [id number] [address] [place] [address] [facility] 08/12/2024 Secondary Insurance:AETNA INDEMNITYPolicy Number: [id number] Date:0377-64-70Ahry Name:Tyler ROBLES: [id number] [address] [address] [facility] 08/12/2024 Primary Insurance:PRIMETIME HMO POSPolicy Number: [id number] Date:3577-16-95Oqrp Name:Raiza ROBLES: [id number] [address] [address] [facility] 08/12/2024 Secondary Insurance:AETNA INDEMNITYPolicy Number: [id number] Date:8947-67-86Zjmb Name:Tyler MAYESB: [id number] [address] [place] [address] [facility] 08/12/2024 Primary Insurance:PRIMETIME HMO POSPolicy Number: [id number] Date:4202-73-28Emgn Name:Raiza MAYESB: [id number] [address] [place] [address] [facility] 08/12/2024 Secondary Insurance:AETNA INDEMNITYPolicy Number: [id number] Date:0834-30-12Oafq Name:Tyler MAYESB: [id number] [address] [place] [address] [facility] 07/22/2024 Primary Insurance:PRIMETIME HMO POSPolicy Number: [id number] Date:5893-57-60Zsur Name:Raiza MAYESB: [id number] [address] [address] [facility] 07/22/2024 Secondary Insurance:AETNA INDEMNITYPolicy Number: [id number] Date:6519-20-97Zxgd Name:Tyler MAYESB: [id number] [address] [address] [facility] 07/05/2024 CINDY MAYESB: [id number] [address] [id number]: () Primary Insurance:PRIMETIME MEDICARE RECURRINGPolicy Number: [id number] Date:Plan Name:Janie MAYESB: [id number] [address], [place] [id number] [facility] 07/05/2024 Secondary Insurance:AETNA COMMERCIAL RECURRINGPolicy Number: [id number] Date: CINDY MAYESB: [id number] [address] [place] [id number] [facility]
[2025-07-12 07:42] VITALS: BMI 39.6
[2025-07-12 07:57] VITALS: BMI 38.5
--- NOTE | 2025-07-12 08:21 | PCM.HP.STD ---
HPI - General HPI Narrative CLINTON COYLE, is a 74 F who presents with right IJ dialysis catheter no longer in use. [facility] Medical History History of Clostridium difficile infection Cancer Bruising Easy bruising Restless legs History of GI bleed On home oxygen therapy Hypertension History of pacemaker Heel spur Colon cancer Colonic mass ESRD (end stage renal disease) Hypercalcemia Wears glasses History of steroid therapy Walker as ambulation aid Diabetes History of renal dialysis History of renal disease Anemia Dietary restriction History of diverticulitis Former smoker BiPAP (biphasic positive airway pressure) dependence Sleep apnea Shortness of breath on exertion History of edema History of echocardiogram Cardiology follow-up encounter History of irregular heartbeat Restrictive lung disease Morbid obesity Pacemaker Heart disease Bone spur Low blood pressure Acute renal failure (ARF) Home Medications ?Medication ?Instructions ?Recorded ?Last Taken ?Type bisoprolol fumarate 5 mg tablet 2.5 mg PO MOWEFR BP 05/17/21 04/25/25 History brimonidine 0.1 % eye drops 1 drp RIGHT EYE BID glaucoma 05/31/21 04/26/25 History (Alphagan P) fluorometholone 0.1 % eye 1 drp EACH EYE QODAY eye drop 05/31/21 08/19/24 History drops,suspension pantoprazole 40 mg tablet,delayed 40 mg PO DAILY reflux 30 days #0 07/02/24 04/26/25 Rx release tabs midodrine 10 mg tablet 10 mg PO BID blood pressure 08/20/24 04/27/25 History multivitamin (Daily-Francine tablet) 1 tab PO DAILY vitamin 08/20/24 04/27/25 History prednisone 2.5 mg tablet 10 mg PO QDAY inflammation 10/19/24 07/12/25 History colestipol 1 gram tablet 1 - 2 g PO DAILY PRN diarrhea 04/14/25 04/27/25 History lanthanum 1,000 mg chewable tablet 1,000 mg PO TID phosphate 04/14/25 04/27/25 History (Fosrenol) losartan 25 mg tablet 12.5 mg PO MOWEFRSA blood pressure 04/14/25 Unknown History oxycodone 5 mg tablet 5 mg PO Q8H PRN pain 2 days #6 tabs 04/28/25 Unknown Rx Allergy/AdvReac Type Severity Reaction Status Date / Time Tetracyclic Antidepressants Allergy Intermediate Other Verified 05/24/25 14:21 Tricyclic Antidepressants Allergy Intermediate Other Verified 05/24/25 14:21 and Tricy ibuprofen Allergy Mild PT UNSURE Verified 05/24/25 14:21 OF REACTION Phenylpiperazine Allergy NEEDS Verified 05/24/25 14:21 Antidepressant FOLLOW-UP apixaban (From Eliquis) AdvReac Severe bleeding Verified 05/24/25 14:21 Family History Father Diabetes Heart disease Mother Heart disease Surgical History History of implantable cardiac defibrillator (ICD) History of colonoscopy History of esophagogastroduodenoscopy (EGD) S/P right hemicolectomy History of arteriovenostomy for renal dialysis S/P cardiac pacemaker procedure S/P laparoscopic cholecystectomy Social History household members: spouse Smoking Status: Former smoker Tobacco: How many years used: 10 how long ago did patient quit smokin years alcohol intake: never ROS Constitutional Constitutional: Denies chills, fever(s), frequent falls, lethargy or weakness Eyes Eyes: Denies blind spots, change in vision or loss of vision ENT HEENT: Denies bleeding gums, hoarseness or sore throat Cardiovascular Cardiovascular: Denies abdominal pain, bluish discoloration of hand/feet, chest pain with activity, claudication, cold extremities, cyanosis, dyspnea on exertion, erythema on extremities, irregular heart rhythm, leg edema, leg ulcers, numbness in extremities or weakness in extremities Respiratory/Chest Respiratory/Chest: Denies cough, excessive phlegm production, shortness of breath at rest, shortness of breath with exertion or wheezing Gastrointestinal Gastrointestinal: Denies anorexia, change in stool character, constipation, diarrhea, melena or rectal bleeding Genitourinary Genitourinary: Denies dysuria or hematuria Musculoskeletal Musculoskeletal: Denies abnormal gait Integumentary Integumentary: Reports other Details: ; Denies erythema, non-healing lesions or wounds Neurologic Neurologic: Denies abnormal speech, focal weakness, headache(s), loss of vision, numbness, paresthesias or sensory deficit Hematologic/Lymphatic Hematologic/Lymphatic: Denies easy bleeding, easy bruising or lymphadenopathy Vital Signs Vital Signs Vital Signs: Weight Weight: 211 lb Body Mass Index (BMI) 38.5 Physical Exam Const alert, oriented x3, no apparent distress and healthy appearing General Appearance: cooperative; Negative for combative or lethargic Orientation / Consciousness: awake Exam Limitations: no limitations HEENT Head and Scalp: normocephalic and atraumatic Eyes EOMs intact bilaterally General Eye: normal appearance of both eyes Neck full ROM General: trachea midline Resp normal respiratory effort and no use of accessory muscles Effort and Inspection: Negative for labored, stridor or audible wheezes Cardio regular rate and regular rhythm Back/Spine Cervical Spine: cervical ROM normal Extremity full ROM, normal capillary refill and no clubbing, cyanosis or edema Skin no rashes or lesions noted and no wounds Neuro oriented x3, CN's II-XII intact bilaterally, no focal motor deficits and no sensory deficits noted Psych thought process normal, cooperative, affect normal, speech normal and activity/motor behavior normal Assessment & Plan Assessment/Plan (1) Vascular dialysis catheter in place: PLAN: -remove catheter
--- NOTE | 2025-07-12 09:15 | OP.PCM_ITS ---
Operative Report (Standard) Operative Information Date of Procedure: 07/12/25 Pre-Operative Diagnosis: right IJ dialysis catheter no longer in use Post-Operative Diagnosis: same Surgery/Procedure Performed: removal tunneled dialysis catheter model home sales greeter: No Type of Anesthesia: Local and Sedation,Conscious Procedure Start Time: 09:05 Procedure Stop Time: 09:10 Select all DRAINS/GRAFTS/IMPLANTS that apply: None Estimated Blood Loss: 2 Specimen collected: No Surgical Findings: see above Complications Complications: No
--- NOTE | 2025-07-12 09:15 | PCM.OPRPT ---
Operative Report (Standard) Operative Information Date of Procedure: 07/12/25 Pre-Operative Diagnosis: right IJ dialysis catheter no longer in use Post-Operative Diagnosis: same Surgery/Procedure Performed: removal tunneled dialysis catheter hadoop consultant: No Type of Anesthesia: Local and Sedation,Conscious Procedure Start Time: 09:05 Procedure Stop Time: 09:10 Select all DRAINS/GRAFTS/IMPLANTS that apply: None Estimated Blood Loss: 2 Specimen collected: No Description of surgery: HPI: Patient is a 74-year-old female with end-stage renal disease currently on dialysis via a successful fistula creation. She has a tunneled dialysis catheter that is no longer new so she presents now for removal. Description of procedure: Upon obtaining informed consent and verification of correct patient procedure and site the patient was taken to the Director Of Student Affairs where she was positioned prepped and draped in usual sterile fashion. Timeouts performed and conscious sedation administered with Versed and fentanyl. Skin overlying the cuff which was closely adjacent to the skin exit site was anesthetized 1% lidocaine and blunt dissection with a curved hemostat utilized to free the cuff from the surrounding soft tissue. Once this was fully mobilized the catheter was withdrawn and manual pressure held over the IJ access site until hemostasis was observed. The patient was then taken to the recovery area with plan discharge to home after bedrest. Surgical Findings: see above Complications Complications: No
== END 2025-07-12 10:15 | disposition home or self-care (01) ==
PROVIDERS: PCP Student in an Organized Health Care Education/Training Program; Referring Provider Surgery Trauma Surgery; Visit Provider Surgery Trauma Surgery
DX: Z45.2 Encounter for adjustment and management of vascular access device (principal); I12.0 Hypertensive chronic kidney disease with stage 5 chronic kidney disease or end stage renal disease; N18.6 End stage renal disease; E11.22 Type 2 diabetes mellitus with diabetic chronic kidney disease; Z87.891 Personal history of nicotine dependence
CPT/HCPCS: 36589; 99152

== ENCOUNTER → 2025-08-08 | Outpatient (CLI) | payer MEDICARE, OTHER, SELFPAY ==
[2025-08-08 15:06] LABS: Hematocrit 34.0 % (37-47); Hemoglobin 10.7 g/dL (12.0-15.0); Immature Granulocytes Count 0.040 X10^3/uL (0.0-0.0); Mean Corp Hgb Conc 31.5 g/dL (32-36); Mean Corpuscular Volume 103.3 fL (81-99); Mean Platelet Vol. 10.7 fl (6.2-12.0); NRBC Flagged by Analyzer 0 % (0-5); POSITIVE DIFFERENTIAL YES; Platelet Count 196 K/mm3 (150-450); RBC Distribution Width CV 15.1 % (11.6-14.6); RBC Distribution Width SD 58.1 fl (35.1-43.9); Red Blood Count 3.29 M/mm3 (4.2-5.4); White Blood Count 8.5 K/mm3 (4.4-11.0)
[2025-08-08 16:04] LABS: AST(SGOT) 32 U/L (<=31); Alanine Aminotransfer ALT/SGPT 23 U/L (<=34); Albumin, Serum 3.8 g/dL (3.4-4.8); Alkaline Phosphatase 127 U/L (35-104); Anion Gap 11 (5-15); BUN 20 mg/dL (4-19); BUN/Creat Ratio 7.7 RATIO (10-20); Calcium,Total 8.5 mg/dL (7.6-11.0); Carbon Dioxide 31.5 mmol/L (21.0-32.0); Chloride 95 mmol/L (98-108); Globulin 3.3 g/dL (2.2-4.2); Glucose 197 mg/dL (70-99); Potassium 5.3 mmol/L (3.3-5.1); Vitamin B12 339 pg/mL (180-914)
[2025-08-10 04:07] LABS: Carcinoembryonic Antigen 5.2 ng/mL (0.0-4.7)
== END | disposition home or self-care (01) ==
LOC: LAB 14:23
PROVIDERS: PCP Student in an Organized Health Care Education/Training Program; Referring Provider Internal Medicine Hematology & Oncology; Visit Provider Internal Medicine Hematology & Oncology
DX: C18.2 Malignant neoplasm of ascending colon (principal); D64.9 Anemia, unspecified
CPT/HCPCS: 36415; 80053; 82378; 82607; 85025

== ENCOUNTER 2025-08-15 13:18 | Inpatient (IN) | payer MEDICARE, OTHER, SELFPAY ==
[2025-08-15] VITALS (15 sets, daily range): BP systolic 104–131; BP diastolic 53–76; PULSE 81–90; RESP 16–28; TEMP 36.2–36.7; O2SAT 88–100; BMI 38.4; BMI 37.8
--- NOTE | 2025-08-15 14:28 | ED.VIS.DYS ---
HPI History of Present Illness Chief Complaint: Shortness of Breath Narrative Narrative: Patient is a 75-year-old female presenting to the emergency department for a dry cough for 1 week and shortness of breath that started today. Patient has a past medical history of end-stage renal disease on hemodialysis, anemia, obseity. Patient was at dialysis today and received her full treatment when they told her that she might be in A-fib and she was reportedly saturating in the high 80s on room air so they placed her on nasal cannula and told her to come to the ED to be evaluated. Patient denies any fever, chills, chest pain, abdominal pain, nausea, vomiting, diarrhea. Denies any lower extremity edema. She denies any sick contacts. [facility] Medical History Dialysis patient Kidney disease ICD (implantable cardioverter-defibrillator) in place Pacemaker Vascular dialysis catheter in place History of Clostridium difficile infection Cancer Bruising Easy bruising Restless legs History of GI bleed On home oxygen therapy Hypertension History of pacemaker Heel spur Colon cancer Colonic mass ESRD (end stage renal disease) Hypercalcemia Wears glasses History of steroid therapy Walker as ambulation aid Diabetes History of renal dialysis History of renal disease Anemia Dietary restriction History of diverticulitis Former smoker BiPAP (biphasic positive airway pressure) dependence Sleep apnea Shortness of breath on exertion History of edema History of echocardiogram Cardiology follow-up encounter History of irregular heartbeat Restrictive lung disease Morbid obesity Pacemaker Heart disease Bone spur Low blood pressure Acute renal failure (ARF) Home Medications ?Medication ?Instructions ?Recorded ?Last Taken ?Type bisoprolol fumarate 5 mg tablet 2.5 mg PO MOWE BP 05/17/21 04/25/25 History brimonidine 0.1 % eye drops 1 drp RIGHT EYE BID glaucoma 05/31/21 04/26/25 History (Alphagan P) fluorometholone 0.1 % eye 1 drp EACH EYE QODAY eye drop 05/31/21 08/19/24 History drops,suspension pantoprazole 40 mg tablet,delayed 40 mg PO DAILY reflux 30 days #0 07/02/24 04/26/25 Rx release tabs midodrine 10 mg tablet 10 mg PO BID blood pressure 08/20/24 04/27/25 History multivitamin (Daily-Francine tablet) 1 tab PO DAILY vitamin 08/20/24 04/27/25 History prednisone 2.5 mg tablet 10 mg PO QDAY inflammation 10/19/24 07/12/25 History colestipol 1 gram tablet 1 - 2 g PO DAILY PRN diarrhea 04/14/25 04/27/25 History lanthanum 1,000 mg chewable tablet 1,000 mg PO TID phosphate 04/14/25 04/27/25 History (Fosrenol) Allergy/AdvReac Type Severity Reaction Status Date / Time Tetracyclic Antidepressants Allergy Intermediate Other Verified 08/15/25 13:19 Tricyclic Antidepressants Allergy Intermediate Other Verified 08/15/25 13:19 and Tricy ibuprofen Allergy Mild PT UNSURE Verified 08/15/25 13:19 OF REACTION Phenylpiperazine Allergy NEEDS Verified 08/15/25 13:19 Antidepressant FOLLOW-UP apixaban (From Eliquis) AdvReac Severe bleeding Verified 08/15/25 13:19 Family History Father Diabetes Heart disease Mother Heart disease Surgical History History of cholecystectomy History of implantable cardiac defibrillator (ICD) History of colonoscopy History of esophagogastroduodenoscopy (EGD) S/P right hemicolectomy History of arteriovenostomy for renal dialysis S/P cardiac pacemaker procedure S/P laparoscopic cholecystectomy Social History household members: spouse Smoking Status: Former smoker Tobacco: How many years used: 10 how long ago did patient quit smokin years alcohol intake: never ROS ROS ED ROS Narrative see HPI EXAM Physical Exam Narrative Exam Narrative: Vital signs: Reviewed General: Alert and oriented x 3. No acute distress HEENT: Head is normocephalic and atraumatic, sinuses nontender, pupils equal round and reactive. Nares are patent. Oropharynx and throat exams normal. Neck: Supple without lymphadenopathy nontender Cardiovascular: Regular rate and rhythm, no murmurs. No rubs or gallops. Normal S1 and S2 Respiratory: Decreased lung sounds in bilateral lower lobes. No wheezing noted. On 2 L nasal cannula saturating 100%. Abdominal: Soft and nontender. Normal bowel sounds. No guarding or rebound. Nonsurgical abdomen Extremities: Fistula in the right upper medial arm with palpable thrill. No tenderness. No bruising. Normal range of motion. Normal sensation. Skin: No rash or redness. Neurological: Cranial nerves II through XII are grossly intact. Normal strength and sensation. Normal cerebellar function The rest of the physical exam is unremarkable Const Vital Signs: 08/15/25 13:18 08/15/25 14:11 08/15/25 14:40 Temperature 97.1 F L Temperature Source Temporal Pulse Rate 81 84 Respiratory Rate 16 26 H Blood Pressure 115/57 L 108/59 L Blood Pressure Mean 76 75 Pulse Ox 97 100 Oxygen Delivery Method Nasal Cannula Nasal Cannula Room Air Oxygen Flow Rate (L/min) 2 08/15/25 14:52 08/15/25 14:52 08/15/25 15:00 Temperature Temperature Source Pulse Rate 85 Respiratory Rate 16 Blood Pressure 108/59 L Blood Pressure Mean 75 Pulse Ox 88 99 99 Oxygen Delivery Method Room Air Nasal Cannula Nasal Cannula Oxygen Flow Rate (L/min) 2 2 08/15/25 16:09 08/15/25 16:47 08/15/25 16:50 Temperature Temperature Source Pulse Rate 83 90 87 Respiratory Rate 22 H 19 H 20 H Blood Pressure 123/53 H 130/76 H 123/73 H Blood Pressure Mean 76 94 89 Pulse Ox 98 100 100 Oxygen Delivery Method Nasal Cannula Nasal Cannula Nasal Cannula Oxygen Flow Rate (L/min) 2 2 MDM MDM MDM Narrative Medical decision making narrative: Patient is a 75-year-old female presenting to the emergency department for dyspnea and dry cough. Patient was seen and examined. Vitals are stable. Patient resting in bed comfortably no acute distress. Initially she was on 2 L nasal cannula saturating 97 to 100%. While I was in the room I tried to decrease this and initially she tolerated well but then dropped down to 88% while resting. Differential includes but is not limited to: CHF exacerbation, pneumonia, ACS, viral illness Viral swab negative. CBC with no leukocytosis and chronic anemia of 11.1. BMP with baseline kidney dysfunction and very mild hyperkalemia 5.4. BNP is elevated however this was expected with her kidney dysfunction. Troponin is also elevated at 114 which is also expected with her kidney dysfunction however will trend. Chest x-ray reviewed by myself and shows evidence of vascular congestion consistent with fluid overload. Radiology read in agreement. She just had dialysis today and received a full treatment. Initially the patient reported that she makes a small amount of urine so Lasix was ordered however when I went back to speak with her about this she states she only makes a few drops of urine daily Lasix was canceled. Patient ambulated on room air and saturated 76%. Was very dyspneic during this. Discussed admission with patient and and they are agreeable. Admitted to hospitalist for further management. Clinical impression: CHF Dyspnea Acute hypoxic respiratory failure History & Record Review Discussion w/independent historian: Patient and Significant other Lab Data Attestation: I reviewed the patient's lab results. Labs: Laboratory Results - last 24 hr 08/15/25 14:50 WBC 9.2 RBC 3.44 L Hgb 11.1 L Hct 35.1 L MCV 102.0 H MCH 32.3 H MCHC 31.6 L RDW Std Deviation 55.5 H RDW Coeff of Ernie 14.9 H Plt Count 262 MPV 10.9 Immature Gran % (Auto) 0.500 Neut % (Auto) 87.2 H Lymph % (Auto) 4.4 L [place] % (Auto) 7.3 Eos % (Auto) 0.3 Baso % (Auto) 0.3 Absolute Neuts (auto) 8.0 H Absolute Lymphs (auto) 0.40 L Nucleated RBC % 0 Sodium 136 Potassium 5.4 H Chloride 95 L Carbon Dioxide 32.8 H Anion Gap 8 BUN 22 H Creatinine 2.78 H Estim Creat Clear Calc 19.10 L Est GFR (MDRD) Non-Af 17 L BUN/Creatinine Ratio 8.0 L Glucose 132 H Calcium 9.2 Troponin T High Sens 114 H* [place] > [address] H Radiography Chest X-Ray - ED: 2 View, Read by ED Physician, Cardiomegaly and CHF Diagnostic Testing: Clinical Impression(s) from Imaging Studies Chest X-Ray 08/15/25 15:00 IMPRESSION: CHF with mild vascular congestion/interstitial edema, probable trace left pleural effusion. Reading Location: [facility] Discharge Plan Triage Chief Complaint: Shortness of Breath ED Provider: Anca Aguiar Dx/Rx/DC Orders Prescriptions: No Action bisoprolol fumarate 5 mg tablet 2.5 mg PO MOWEFRSA Rx Instructions: 1/2 tab in the evening on dialysis days / and Friday prednisone 2.5 mg tablet 10 mg PO QDAY Patient Comments: PT USUALLY DOESN'T TAKE EVERYDAY-USUALLY 1-2X A WEEK fluorometholone 0.1 % drops,suspension 1 drp EACH EYE QODAY brimonidine [Alphagan P] 0.1 % drops 1 drp RIGHT EYE BID Patient Comments: instill ONE DROP IN THE RIGHT EYE TWICE DAILY lanthanum [Fosrenol] 1,000 mg tablet,chewable 1,000 mg PO TID Rx Instructions: administer with food; chew thoroughly before swallowing colestipol 1 gram tablet 1 - 2 g PO DAILY PRN (Reason: diarrhea) pantoprazole 40 mg Tablet,Delayed Release (Dr/Ec) 40 mg PO DAILY 30 Days Qty: 0 0RF multivitamin [Daily-Francine] Tablet 1 tab PO DAILY midodrine 10 mg tablet 10 mg PO BID Rx Instructions: TAKE 1 TABLET PRIOR TO DIALYSIS Primary Care Provider: Khloe Pabon Referrals: Khloe Pabon MD [Primary Care Provider, Family Practice] Print Language: Romanian
[2025-08-15 15:00] LABS: Hematocrit 35.1 % (37-47); Hemoglobin 11.1 g/dL (12.0-15.0); Immature Granulocytes Count 0.050 X10^3/uL (0.0-0.0); Mean Corp Hgb Conc 31.6 g/dL (32-36); Mean Corpuscular Volume 102.0 fL (81-99); Mean Platelet Vol. 10.9 fl (6.2-12.0); NRBC Flagged by Analyzer 0 % (0-5); POSITIVE DIFFERENTIAL YES; Platelet Count 262 K/mm3 (150-450); RBC Distribution Width CV 14.9 % (11.6-14.6); RBC Distribution Width SD 55.5 fl (35.1-43.9); Red Blood Count 3.44 M/mm3 (4.2-5.4); White Blood Count 9.2 K/mm3 (4.4-11.0)
--- NOTE | 2025-08-15 15:00 | RAD_ITS ---
PROCEDURE: RAD/Chest PA and Lateral
[2025-08-15 15:30] LABS: Anion Gap 8 (5-15); BUN 22 mg/dL (4-19); BUN/Creat Ratio 8.0 RATIO (10-20); Calcium,Total 9.2 mg/dL (7.6-11.0); Carbon Dioxide 32.8 mmol/L (21.0-32.0); Chloride 95 mmol/L (98-108); Estimated Creatinine Clearance 19.10 ml/min (50-250); Glucose 132 mg/dL (70-99); Potassium 5.4 mmol/L (3.3-5.1)
[2025-08-15 16:09] LABS: Pro- Brain NATRIURETIC PEPTIDE > 70000 pg/mL (<=900); Troponin T High Sensitivity 114 ng/L (<=14)
[2025-08-15 17:35] LABS: Troponin T High Sens 2 HR 115 ng/L (<=14)
--- NOTE | 2025-08-15 17:35 | PCM.HP.STD ---
HPI - General General Date of Admission: 08/15/25 Date of Service: 08/15/25 Chief Complaint: Shortness of breath with exertion HPI Narrative CLINTON COYLE, is a 75 F who presented to [facility] ED on 08/15/2025 with shortness of breath with exertion. Medical history is significant for ESRD on HD, colon cancer s/p right hemicolectomy, paroxysmal A-fib not on anticoagulation due to history of lower GI bleed on Eliquis, chronic nocturnal hypoxia on 2 L, LAYLA and class II obesity. Patient lives at home with her and has decent functional status at baseline, uses a 4 point walker for ambulation. She reports new onset shortness of breath with exertion over the past 1-1/2 to 2 weeks. Has not missed any dialysis sessions and notes that they have been taking more fluid off with each dialysis session for the past 3-4 sessions. Has been compliant with her home CPAP and oxygen at night. She does report worsened lower extremity swelling over that timeframe as well. She has been wearing her compression stockings on a daily basis and notes this has been mild to moderately helpful. Notes she thought it might be acid reflux symptoms so she tried to change her diet somewhat but had no improvement. She had dialysis done earlier today before coming into the ED. In the ED she was hypoxic to 88% on room air at rest, improved to the low to mid 90s on 2 L nasal cannula. She notably did drop to the mid 70s on room air with exertion and had significant shortness of breath noted. Chest x-ray showed CHF with mild vascular congestion/interstitial edema and probable trace left pleural effusion. CBC was benign. BMP with potassium 5.4. EKG with no hyperkalemic changes noted. Given her volume overload and hypoxia, hospitalist was contacted for admission. I saw the patient at bedside in the ED. Patient was sitting up comfortably at the edge of the bed, conversing normally, in no acute distress. She had a good energy level noted. States that aside from this recent shortness of breath with exertion and lower extremity swelling, she has done well over the past several months. She reports some decreased p.o. intake in that timeframe due to abdominal bloating. She reports intermittent palpitations and notes that she has an palpitations during dialysis today, which is not abnormal for her. She otherwise denies any acute concerns currently. Will be admitted for further management. [facility] Medical History Dialysis patient Kidney disease ICD (implantable cardioverter-defibrillator) in place Pacemaker Vascular dialysis catheter in place History of Clostridium difficile infection Cancer Bruising Easy bruising Restless legs History of GI bleed On home oxygen therapy Hypertension History of pacemaker Heel spur Colon cancer Colonic mass ESRD (end stage renal disease) Hypercalcemia Wears glasses History of steroid therapy Walker as ambulation aid Diabetes History of renal dialysis History of renal disease Anemia Dietary restriction History of diverticulitis Former smoker BiPAP (biphasic positive airway pressure) dependence Sleep apnea Shortness of breath on exertion History of edema History of echocardiogram Cardiology follow-up encounter History of irregular heartbeat Restrictive lung disease Morbid obesity Pacemaker Heart disease Bone spur Low blood pressure Acute renal failure (ARF) Home Medications ?Medication ?Instructions ?Recorded ?Last Taken ?Type bisoprolol fumarate 5 mg tablet 2.5 mg PO MOWEFRSA BP 05/17/21 04/25/25 History brimonidine 0.1 % eye drops 1 drp RIGHT EYE BID glaucoma 05/31/21 04/26/25 History (Alphagan P) fluorometholone 0.1 % eye 1 drp EACH EYE QODAY eye drop 05/31/21 08/19/24 History drops,suspension pantoprazole 40 mg tablet,delayed 40 mg PO DAILY reflux 30 days #0 07/02/24 04/26/25 Rx release tabs midodrine 10 mg tablet 10 mg PO BID blood pressure 08/20/24 04/27/25 History multivitamin (Daily-Francine tablet) 1 tab PO DAILY vitamin 08/20/24 04/27/25 History colestipol 1 gram tablet 1 - 2 g PO DAILY PRN diarrhea 04/14/25 04/27/25 History prednisone 10 mg tablet 10 mg PO DAILY 08/15/25 Unknown History sucroferric oxyhydroxide 500 mg 500 - 1,000 mg PO BID 08/15/25 Unknown History chewable tablet (Velphoro) Allergy/AdvReac Type Severity Reaction Status Date / Time Tetracyclic Antidepressants Allergy Intermediate Other Verified 08/15/25 13:19 Tricyclic Antidepressants Allergy Intermediate Other Verified 08/15/25 13:19 and Tricy ibuprofen Allergy Mild PT UNSURE Verified 08/15/25 13:19 OF REACTION Phenylpiperazine Allergy NEEDS Verified 08/15/25 13:19 Antidepressant FOLLOW-UP apixaban (From Eliquis) AdvReac Severe bleeding Verified 08/15/25 13:19 Family History Father Diabetes Heart disease Mother Heart disease Surgical History History of cholecystectomy History of implantable cardiac defibrillator (ICD) History of colonoscopy History of esophagogastroduodenoscopy (EGD) S/P right hemicolectomy History of arteriovenostomy for renal dialysis S/P cardiac pacemaker procedure S/P laparoscopic cholecystectomy Social History household members: spouse Smoking Status: Former smoker Tobacco: How many years used: 10 how long ago did patient quit smokin years alcohol intake: never ROS Constitutional Constitutional: Denies chills, fatigue, fever(s) or weakness Eyes Eyes: Denies change in vision Cardiovascular Cardiovascular: Reports dyspnea on exertion, edema and palpitations; Denies chest pain, lightheadedness or orthopnea Respiratory/Chest Respiratory/Chest: Reports shortness of breath with exertion; Denies cough, productive cough, shortness of breath at rest or wheezing Gastrointestinal Gastrointestinal: Denies abdominal pain, constipation, diarrhea, nausea or vomiting Genitourinary Genitourinary: Denies dysuria Musculoskeletal Musculoskeletal: Denies arthralgias or myalgias Neurologic Neurologic: Denies dizziness, focal weakness or headache(s) Vital Signs Vital Signs Vital Signs: 08/15/25 13:18 08/15/25 14:11 08/15/25 14:40 Temperature 97.1 F L Temperature Source Temporal Pulse Rate 81 84 Respiratory Rate 16 26 H Blood Pressure 115/57 L 108/59 L Blood Pressure Mean 76 75 Pulse Ox 97 100 Oxygen Delivery Method Nasal Cannula Nasal Cannula Room Air Oxygen Flow Rate (L/min) 2 08/15/25 14:52 08/15/25 14:52 08/15/25 15:00 Temperature Temperature Source Pulse Rate 85 Respiratory Rate 16 Blood Pressure 108/59 L Blood Pressure Mean 75 Pulse Ox 88 99 99 Oxygen Delivery Method Room Air Nasal Cannula Nasal Cannula Oxygen Flow Rate (L/min) 2 2 08/15/25 16:09 08/15/25 16:47 08/15/25 16:50 Temperature Temperature Source Pulse Rate 83 90 87 Respiratory Rate 22 H 19 H 20 H Blood Pressure 123/53 H 130/76 H 123/73 H Blood Pressure Mean 76 94 89 Pulse Ox 98 100 100 Oxygen Delivery Method Nasal Cannula Nasal Cannula Nasal Cannula Oxygen Flow Rate (L/min) 2 2 Weight Weight: 95.254 kg Body Mass Index (BMI) 38.4 Physical Exam Const alert, oriented x3 and no apparent distress Constitutional Narrative: Pleasant elderly female, class II obesity, sitting up comfortably at the edge of the bed, conversing normally, in no acute distress. General Appearance: cooperative and comfortable HEENT normocephalic, head/scalp atraumatic, hearing grossly normal bilaterally, nasal mucous membranes and turbinates normal and moist oral mucous membranes Eyes PERRL, EOMs intact bilaterally and conjunctivae normal Neck full ROM Chest inspection of chest normal Resp normal respiratory effort and no use of accessory muscles Resp Narrative: Breathing comfortably on 2 L nasal cannula at rest. Diminished breath sounds in bilateral lung bases with mild crackles noted in mid to lower lung zones. No wheezing noted. Cardio regular rate, regular rhythm, no murmurs and peripheral pulses 2+ throughout GI normal to inspection, nondistended, normoactive bowel sounds, soft to palpation, non-tender and non-distended Back/Spine normal ROM Extremity full ROM Extremity Narrative: Compression stockings in place. +2-3 lower extremity pitting edema up to the knees noted bilaterally. Skin no rashes or lesions noted Psych mental status grossly normal Results Lab / Micro Data 08/15/25 14:50 08/15/25 14:50 Labs: Laboratory Results - last 24 hr 08/15/25 14:50: WBC 9.2, RBC 3.44 L, Hgb 11.1 L, Hct 35.1 L, MCV 102.0 H, MCH 32.3 H, MCHC 31.6 L, RDW Std Deviation 55.5 H, RDW Coeff of Ernie 14.9 H, Plt Count 262, MPV 10.9, Immature Gran % (Auto) 0.500, Neut % (Auto) 87.2 H, Lymph % (Auto) 4.4 L, Ste[place]s % (Auto) 7.3, Eos % (Auto) 0.3, Baso % (Auto) 0.3, Absolute Neuts (auto) 8.0 H, Absolute Lymphs (auto) 0.40 L, Nucleated RBC % 0, Sodium 136, Potassium 5.4 H, Chloride 95 L, Carbon Dioxide 32.8 H, Anion Gap 8, BUN 22 H, Creatinine 2.78 H, Estim Creat Clear Calc 19.10 L, Est GFR (MDRD) Non-Af 17 L, BUN/Creatinine Ratio 8.0 L, Glucose 132 H, Calcium 9.2, Troponin T High Sens 114 H*, NT pro BNP II > 52027 H Micro: Microbiology 08/15/25 14:33 Mucosa - Nose SARS-CoV-2, Influenza & RSV (PCR) - Final Imaging Radiology Impression Chest X-Ray 08/15/25 15:00 IMPRESSION: CHF with mild vascular congestion/interstitial edema, probable trace left pleural effusion. Reading Location: [id number] Assessment & Plan Assessment/Plan (1) CHF exacerbation: PLAN: Plan Patient is a 75-year-old female who presented to [facility] ED on 08/15/2025 with shortness of breath with exertion. 1. Suspected new onset CHF exacerbation with hypoxia ? Admit under inpatient status to PCU. Not on home oxygen during the day, was requiring 2 L nasal cannula at rest and 3 L with exertion in the ED to maintain appropriate saturations. Chest x-ray showed CHF with mild vascular congestion/interstitial edema and probable trace left pleural effusion. Significant lower extremity pitting edema noted as well. Per patient, they have been pulling off more fluid with each dialysis session over the past 3-4 sessions without much improvement. No prior echocardiograms available in her chart. Echocardiogram ordered. Patient makes minimal urine, will defer to nephrology on determining how much fluid should be pulled off with further dialysis sessions moving forward. Wean supplemental oxygen as able. 2. ESRD on HD ? Nephrology consulted. On HD Friday and has been compliant with sessions. Appreciate nephrology recommendations. Continue home phosphate binder and midodrine. 3. Mild hyperkalemia ? Potassium 5.4 on admit. No EKG changes noted. No need for medical treatment at this time, will monitor daily BMP with plan for dialysis per nephrology recommendations. 4. Paroxysmal A-fib not on anticoagulation due to history of lower GI bleed on Eliquis, history of pacemaker placement ? Patient in atrial sensed, ventricular paced rhythm at 88 bpm on admit. Continue home bisoprolol. Chronic medical conditions: ? Class II obesity with LAYLA and chronic nocturnal hypoxia: Has 2 L nasal cannula bled into CPAP at night at home. Continue CPAP at night here. BMI 37 on admit, complicates hospital course and care. ? GERD: Continue home PPI. ? History of colon cancer s/p right hemicolectomy: Follows with oncology. Had right hemicolectomy done here in June 2024. On surveillance now, not on active therapy. No inpatient needs, continue outpatient follow-up. ? History of prior right AV fistula iatrogenic rupture: Had rupture of right forearm AV fistula in the past with subsequent placement of new AV fistula in the right upper arm. Has been utilizing new AV fistula for the past month or so with no issues. DVT prophylaxis: Heparin subcu CODE STATUS: Full code, verified Expected disposition: Home, TBD Total clinical time spent by myself addressing the patient's medical issues, reviewing all the data, and collaborating with patient's care team: 79 minutes. Charges/Coding Visit Charges Inpatient E&M: 91884 Init Hosp L3
--- NOTE | 2025-08-15 17:36 | ED.RN ---
Critical 2 hr trop of [address] Aguiar notified.
--- NOTE | 2025-08-15 17:43 | ECHOCS_ITS ---
Reason For Study ECHO/Echo Complete W/ Contrast
[2025-08-15 20:50] LABS: Troponin T High Sens 4 HR 99 ng/L (<=14)
[2025-08-15] MEDS: Heparin Injection (Vial) 5,000 UNIT/ML VIAL 5000 UNIT SC (21:34)
[2025-08-15] MEDS: BRIMONIDINE 0.15% 5 ML Bottle 1 DRP RIGHT EYE (21:34)
[2025-08-16] VITALS (17 sets, daily range): BP systolic 108–133; BP diastolic 41–74; PULSE 72–89; RESP 14–18; TEMP 36.2–36.8; O2SAT 83–100; BMI 38.0; BMI 37.2
[2025-08-16] MEDS: Heparin Injection (Vial) 5,000 UNIT/ML VIAL 5000 UNIT SC ×3 (06:06→21:30)
[2025-08-16 06:32] LABS: Hematocrit 33.6 % (37-47); Hemoglobin 10.6 g/dL (12.0-15.0); Mean Corp Hgb Conc 31.5 g/dL (32-36); Mean Corpuscular Volume 103.1 fL (81-99); Mean Platelet Vol. 10.7 fl (6.2-12.0); Platelet Count 233 K/mm3 (150-450); RBC Distribution Width CV 14.8 % (11.6-14.6); RBC Distribution Width SD 56.1 fl (35.1-43.9); Red Blood Count 3.26 M/mm3 (4.2-5.4); White Blood Count 6.5 K/mm3 (4.4-11.0)
[2025-08-16 07:01] LABS: Anion Gap 12 (5-15); BUN 36 mg/dL (4-19); BUN/Creat Ratio 9.8 RATIO (10-20); Calcium,Total 9.1 mg/dL (7.6-11.0); Carbon Dioxide 29.0 mmol/L (21.0-32.0); Chloride 96 mmol/L (98-108); Estimated Creatinine Clearance 14.39 ml/min (50-250); Glucose 109 mg/dL (70-99); Potassium 5.0 mmol/L (3.3-5.1)
[2025-08-16] MEDS: 0.9% Saline Lock 10 ML Syringe IV (07:27)
--- NOTE | 2025-08-16 08:35 | PN.HOSP_ITS ---
Reason for Visit
--- NOTE | 2025-08-16 08:35 | PCM.PN.HOSP ---
Reason for Visit Chief Complaint: Shortness of breath with exertion Subjective Subjective No new events. Objective Data Objective Data Vital Signs: Vital Signs Temp Pulse Resp BP Pulse Ox O2 Del Method O2 Flow Rate 36.6 C 83 18 133/74 H 93 Nasal Cannula 2 08/16/25 03:43 08/16/25 03:43 08/16/25 03:43 08/16/25 03:43 08/16/25 03:43 08/16/25 07:38 08/16/25 07:38 Oxygen Flow Rate (L/min) 2 Oxygen Delivery Method Nasal Cannula Weight: 93.8 kg Body Mass Index (BMI) 37.8 Intake & Output: Intake and Output for Last 24 Hours 08/14/25 08/15/25 08/16/25 22:59 23:59 23:59 Intake Total 200 / 200 Balance 200 / 200 Lab / Micro Data 08/16/25 05:50 08/16/25 05:50 Labs: Laboratory Results - last 24 hr 08/15/25 14:50: WBC 9.2, RBC 3.44 L, Hgb 11.1 L, Hct 35.1 L, MCV 102.0 H, MCH 32.3 H, MCHC 31.6 L, RDW Std Deviation 55.5 H, RDW Coeff of Ernie 14.9 H, Plt Count 262, MPV 10.9, Immature Gran % (Auto) 0.500, Neut % (Auto) 87.2 H, Lymph % (Auto) 4.4 L, [place] % (Auto) 7.3, Eos % (Auto) 0.3, Baso % (Auto) 0.3, Absolute Neuts (auto) 8.0 H, Absolute Lymphs (auto) 0.40 L, Nucleated RBC % 0, Sodium 136, Potassium 5.4 H, Chloride 95 L, Carbon Dioxide 32.8 H, Anion Gap 8, BUN 22 H, Creatinine 2.78 H, Estim Creat Clear Calc 19.10 L, Est GFR (MDRD) Non-Af 17 L, BUN/Creatinine Ratio 8.0 L, Glucose 132 H, Calcium 9.2, Troponin T High Sens 114 H*, [place] > [address] H 08/15/25 16:45: Troponin T Hi Sens 2 Hr 115 H* 08/15/25 19:14: Troponin T Hi Sens 4Hr 99 H* 08/16/25 05:50: WBC 6.5, RBC 3.26 L, Hgb 10.6 L, Hct 33.6 L, MCV 103.1 H, MCH 32.5 H, MCHC 31.5 L, RDW Std Deviation 56.1 H, RDW Coeff of Ernie 14.8 H, Plt Count 233, MPV 10.7, Sodium 137, Potassium 5.0, Chloride 96 L, Carbon Dioxide 29.0, Anion Gap 12, BUN 36 H, Creatinine 3.66 H, Estim Creat Clear Calc 14.39 L, Est GFR (MDRD) Non-Af 12 L, BUN/Creatinine Ratio 9.8 L, Glucose 109 H, Calcium 9.1 Micro: Microbiology 08/15/25 20:05 Mucosa - Nasopharyngeal Respiratory Panel (PCR) - Final 08/15/25 14:33 Mucosa - Nose SARS-CoV-2, Influenza & RSV (PCR) - Final Radiography Diagnostic Testing: Radiology Impression Chest X-Ray 08/15/25 15:00 IMPRESSION: CHF with mild vascular congestion/interstitial edema, probable trace left pleural effusion. Reading Location: [facility] Physical Exam Const alert and no apparent distress Constitutional Narrative: seen on HD. fistula in RUE. HEENT head/scalp atraumatic and moist oral mucous membranes Resp normal respiratory effort, no retractions, no use of accessory muscles and clear to auscultation bilaterally Cardio regular rate, regular rhythm, S1 normal heart sound and S2 normal heart sound GI normal to inspection, nondistended, normoactive bowel sounds, soft to palpation, non-tender and non-distended Assessment & Plan Assessment/Plan (1) CHF exacerbation: PLAN: Plan Acute HFrEF echo shows an EF 10-15% Suspected new onset CHF exacerbation with hypoxia Admit under inpatient status to PCU. Not on home oxygen during the day, was requiring 2 L nasal cannula at rest and 3 L with exertion in the ED to maintain appropriate saturations. Chest x-ray showed CHF with mild vascular congestion/interstitial edema and probable trace left pleural effusion. Significant lower extremity pitting edema noted as well. Per patient, they have been pulling off more fluid with each dialysis session over the past 3-4 sessions without much improvement. No prior echocardiograms available in her chart. Echocardiogram ordered. Patient makes minimal urine, will defer to nephrology on determining how much fluid should be pulled off with further dialysis sessions moving forward. Wean supplemental oxygen as able. DW Dr. Steel, he advises a low-dose ACEi and to follow up with cardiology as outpt. ESRD on HD Nephrology consulted. On HD Friday and has been compliant with sessions. Appreciate nephrology recommendations. Continue home phosphate binder and midodrine. Mild hyperkalemia Potassium 5.4 on admit. Now resolved. Monitor. Chronic medical conditions: Paroxysmal A-fib: not on anticoagulation due to history of lower GI bleed on Eliquis, history of pacemaker placement. Patient in atrial sensed, ventricular paced rhythm at 88 bpm on admit. Continue home bisoprolol. Class II obesity with LAYLA and chronic nocturnal hypoxia: Has 2 L nasal cannula bled into CPAP at night at home. Continue CPAP at night here. BMI 37 on admit, complicates hospital course and care. GERD: Continue home PPI. History of colon cancer s/p right hemicolectomy: Follows with oncology. Had right hemicolectomy done here in June 2024. On surveillance now, not on active therapy. No inpatient needs, continue outpatient follow-up. History of prior right AV fistula iatrogenic rupture: Had rupture of right forearm AV fistula in the past with subsequent placement of new AV fistula in the right upper arm. Has been utilizing new AV fistula for the past month or so with no issues. DVT prophylaxis: Heparin subcu CODE STATUS: Full code, verified Expected disposition: Home, hopefully in 1-2 days. Charges/Coding Visit Charges Inpatient E&M: 85097 Subs Hosp L2
[2025-08-16] MEDS: 0.9% Normal Saline 1,000 ML IV.SOLN. 1000 ML OPERA.SITE (10:43)
--- NOTE | 2025-08-16 12:24 | PCM.CONS.R ---
Assessment & Plan Assessment/Plan (1) ESRD (end stage renal disease): PLAN: On hemodialysis Friday, Friday, Friday schedule. Will plan for isolated UF today. Likely dialysis tomorrow as per schedule. HPI Consult Data Date of Consult: 08/16/25 HPI Narrative Reason for Consultation: ESRD HPI Narrative: CLINTON COYLE, is a 75 F who presents to the hospital with shortness of breath. Nephrology on consultation due to ESRD. History of ESRD, on hemodialysis, Friday, Friday, Friday schedule. Goes to [employer] [facility] in [place]. 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 Key. Last dialysis was yesterday. Progressively worsening shortness of breath for the last couple of weeks or so. Chest x-ray somewhat wet. [facility] Medical History Dialysis patient Kidney disease ICD (implantable cardioverter-defibrillator) in place Pacemaker Vascular dialysis catheter in place History of Clostridium difficile infection Cancer Bruising Easy bruising Restless legs History of GI bleed On home oxygen therapy Hypertension History of pacemaker Heel spur Colon cancer Colonic mass ESRD (end stage renal disease) Hypercalcemia Wears glasses History of steroid therapy Walker as ambulation aid Diabetes History of renal dialysis History of renal disease Anemia Dietary restriction History of diverticulitis Former smoker BiPAP (biphasic positive airway pressure) dependence Sleep apnea Shortness of breath on exertion History of edema History of echocardiogram Cardiology follow-up encounter History of irregular heartbeat Restrictive lung disease Morbid obesity Pacemaker Heart disease Bone spur Low blood pressure Acute renal failure (ARF) Home Medications ?Medication ?Instructions ?Recorded ?Last Taken ?Type bisoprolol fumarate 5 mg tablet 2.5 mg PO MOWEFR BP 05/17/21 04/25/25 History brimonidine 0.1 % eye drops 1 drp RIGHT EYE BID glaucoma 05/31/21 04/26/25 History (Alphagan P) fluorometholone 0.1 % eye 1 drp EACH EYE QODAY eye drop 05/31/21 08/19/24 History drops,suspension pantoprazole 40 mg tablet,delayed 40 mg PO DAILY reflux 30 days #0 07/02/24 04/26/25 Rx release tabs midodrine 10 mg tablet 10 mg PO BID blood pressure 08/20/24 04/27/25 History multivitamin (Daily-Francine tablet) 1 tab PO DAILY vitamin 11/08/24 07/16/25 History colestipol 1 gram tablet 1 - 2 g PO DAILY PRN diarrhea 04/14/25 04/27/25 History prednisone 10 mg tablet 10 mg PO DAILY 08/15/25 Unknown History sucroferric oxyhydroxide 500 mg 500 - 1,000 mg PO BID 08/15/25 Unknown History chewable tablet (Velphoro) Allergy/AdvReac Type Severity Reaction Status Date / Time Tetracyclic Antidepressants Allergy Intermediate Other Verified 08/15/25 13:19 Tricyclic Antidepressants Allergy Intermediate Other Verified 08/15/25 13:19 and Tricy ibuprofen Allergy Mild PT UNSURE Verified 08/15/25 13:19 OF REACTION Phenylpiperazine Allergy NEEDS Verified 08/15/25 13:19 Antidepressant FOLLOW-UP apixaban (From Eliquis) AdvReac Severe bleeding Verified 08/15/25 13:19 Family History Father Diabetes Heart disease Mother Heart disease Surgical History History of cholecystectomy History of implantable cardiac defibrillator (ICD) History of colonoscopy History of esophagogastroduodenoscopy (EGD) S/P right hemicolectomy History of arteriovenostomy for renal dialysis S/P cardiac pacemaker procedure S/P laparoscopic cholecystectomy Social History household members: spouse Smoking Status: Former smoker Tobacco: How many years used: 10 how long ago did patient quit smokin years alcohol intake: never ROS ROS Narrative Negative except above Physical Exam Narrative Alert awake oriented x 3 no obvious distress no pallor no icterus no JVD s1s2 no murmurs lungs clear abdomen soft no organomegaly Lab / Micro Data 08/16/25 05:50 08/16/25 05:50 Labs: Laboratory Results - last 24 hr 08/15/25 14:50: WBC 9.2, RBC 3.44 L, Hgb 11.1 L, Hct 35.1 L, MCV 102.0 H, MCH 32.3 H, MCHC 31.6 L, RDW Std Deviation 55.5 H, RDW Coeff of Ernie 14.9 H, Plt Count 262, MPV 10.9, Immature Gran % (Auto) 0.500, Neut % (Auto) 87.2 H, Lymph % (Auto) 4.4 L, [place] % (Auto) 7.3, Eos % (Auto) 0.3, Baso % (Auto) 0.3, Absolute Neuts (auto) 8.0 H, Absolute Lymphs (auto) 0.40 L, Nucleated RBC % 0, Sodium 136, Potassium 5.4 H, Chloride 95 L, Carbon Dioxide 32.8 H, Anion Gap 8, BUN 22 H, Creatinine 2.78 H, Estim Creat Clear Calc 19.10 L, Est GFR (MDRD) Non-Af 17 L, BUN/Creatinine Ratio 8.0 L, Glucose 132 H, Calcium 9.2, Troponin T High Sens 114 H*, [place] > 46187 H 08/15/25 16:45: Troponin T Hi Sens 2 Hr 115 H* 08/15/25 19:14: Troponin T Hi Sens 4Hr 99 H* 08/16/25 05:50: WBC 6.5, RBC 3.26 L, Hgb 10.6 L, Hct 33.6 L, MCV 103.1 H, MCH 32.5 H, MCHC 31.5 L, RDW Std Deviation 56.1 H, RDW Coeff of Ernie 14.8 H, Plt Count 233, MPV 10.7, Sodium 137, Potassium 5.0, Chloride 96 L, Carbon Dioxide 29.0, Anion Gap 12, BUN 36 H, Creatinine 3.66 H, Estim Creat Clear Calc 14.39 L, Est GFR (MDRD) Non-Af 12 L, BUN/Creatinine Ratio 9.8 L, Glucose 109 H, Calcium 9.1 Micro: Microbiology 08/15/25 20:05 Mucosa - Nasopharyngeal Respiratory Panel (PCR) - Final 08/15/25 14:33 Mucosa - Nose SARS-CoV-2, Influenza & RSV (PCR) - Final Imaging Radiology Impression Chest X-Ray 08/15/25 15:00 IMPRESSION: CHF with mild vascular congestion/interstitial edema, probable trace left pleural effusion. Reading Location: [id number]
[2025-08-16] MEDS: SEVELAMER CARBONATE 800 MG TABLET 1600 MG PO (12:38)
[2025-08-16] MEDS: BRIMONIDINE 0.15% 5 ML Bottle 1 DRP RIGHT EYE ×2 (12:39→21:29)
--- NOTE | 2025-08-16 14:18 | CASEMGMT ---
RN SAKSHI Face to Face with patient for initial transition planning/care coordination assessment. RN CM introduced self and role at [facility]. Patient lying in bed, alert and oriented. Patient willing to participate in assessment and is able to answer all questions appropriately. Care providers, pharmacy, and demographics verified. Strata: 2 PCP: Cm Specialists: [facility]; [facility] Preferred Pharmacy: [facility] [place] Insurance: [employer], [employer] Prescription Benefit: yes Living Will/HPOA: yes, Dylon Heaton LNOK: , son Living Arrangements: Patient lives with in a 2 story home with bed and bath on first floor, 3 steps and railing to enter the home. Patient states she is independent at home. Transportation: DME/HHC: Patient has shower chair, raised toilet, cane, walker, grab bars, rollator, bipap, pulse ox, glucometer with supplie, and home oxygen through [facility] with portability. Patient wishes to discharge home, denies need for home health at this time. Patient states she has no further needs or concerns at this time. CM to follow for discharge planning needs that may arise. Disposition Plan: Patient to discharge home with family support and follow-up plans in place. Nikki BLANCO, RN, CM
[2025-08-16] MEDS: FLU VACCINE HIGH DOSE 25-26(65YR UP) 180 MCG/0.5 ML SYRINGE IM (14:21)
[2025-08-17] VITALS (21 sets, daily range): BP systolic 86–134; BP diastolic 41–76; PULSE 65–82; RESP 12–16; TEMP 36.5–37.3; O2SAT 77–100; BMI 37.2; BMI 36.6
[2025-08-17] MEDS: Heparin Injection (Vial) 5,000 UNIT/ML VIAL 5000 UNIT SC ×3 (05:48→20:48)
[2025-08-17 07:23] LABS: Hematocrit 35.3 % (37-47); Hemoglobin 10.9 g/dL (12.0-15.0); Mean Corp Hgb Conc 30.9 g/dL (32-36); Mean Corpuscular Volume 107.3 fL (81-99); Mean Platelet Vol. 10.8 fl (6.2-12.0); Platelet Count 249 K/mm3 (150-450); RBC Distribution Width CV 14.7 % (11.6-14.6); RBC Distribution Width SD 58.4 fl (35.1-43.9); Red Blood Count 3.29 M/mm3 (4.2-5.4); White Blood Count 7.2 K/mm3 (4.4-11.0)
[2025-08-17 08:01] LABS: Anion Gap 16 (5-15); BUN 50 mg/dL (4-19); BUN/Creat Ratio 10.6 RATIO (10-20); Calcium,Total 9.3 mg/dL (7.6-11.0); Carbon Dioxide 24.3 mmol/L (21.0-32.0); Chloride 94 mmol/L (98-108); Estimated Creatinine Clearance 11.09 ml/min (50-250); Glucose 113 mg/dL (70-99)
--- NOTE | 2025-08-17 08:25 | PN.HOSP_ITS ---
Reason for Visit
--- NOTE | 2025-08-17 08:25 | PCM.PN.HOSP ---
Reason for Visit Chief Complaint: Shortness of breath with exertion Subjective Subjective Feeling ok. Breathing ok. Objective Data Objective Data Vital Signs: Vital Signs Temp Pulse Resp BP Pulse Ox O2 Del Method O2 Flow Rate 36.5 C L 72 16 106/43 L 98 Nasal Cannula 2 08/17/25 08:04 08/17/25 08:04 08/17/25 08:04 08/17/25 08:04 08/17/25 08:04 08/17/25 08:04 08/17/25 08:04 Oxygen Flow Rate (L/min) 2 Oxygen Delivery Method Nasal Cannula Weight: 91.8 kg Body Mass Index (BMI) 37.2 Intake & Output: Intake and Output for Last 24 Hours 08/15/25 08/16/25 08/17/25 23:59 23:59 23:59 Intake Total 880 / 880 Output Total 2230 / 2230 Balance -1350 / -1350 Lab / Micro Data 08/17/25 06:25 08/17/25 06:25 Labs: Laboratory Results - last 24 hr 08/17/25 06:25: WBC 7.2, RBC 3.29 L, Hgb 10.9 L, Hct 35.3 L, MCV 107.3 H, MCH 33.1 H, MCHC 30.9 L, RDW Std Deviation 58.4 H, RDW Coeff of Ernie 14.7 H, Plt Count 249, MPV 10.8, Sodium 134, Potassium 6.0 H*, Chloride 94 L, Carbon Dioxide 24.3, Anion Gap 16 H, BUN 50 H, Creatinine 4.69 H, Estim Creat Clear Calc 11.09 L, Est GFR (MDRD) Non-Af 9 L, BUN/Creatinine Ratio 10.6, Glucose 113 H, Calcium 9.3 Micro: Microbiology 08/15/25 20:05 Mucosa - Nasopharyngeal Respiratory Panel (PCR) - Final 08/15/25 14:33 Mucosa - Nose SARS-CoV-2, Influenza & RSV (PCR) - Final Radiography Diagnostic Testing: Radiology Impression Echocardiogram 08/15/25 17:43 Interpretation Summary Moderately dilated left ventricle. Severe generalized LV hypokinesis. Estimated LVEF 10-15%. At least stage I diastolic dysfunction. Moderately dilated right ventricular cavity with moderate RV systolic dysfunction. There is moderate biatrial dilatation. Mild-Moderate (1-2+) mitral valve insufficiency. Moderate (2+) tricuspid valve insufficiency. Right ventricular systolic pressure estimated to be 57 mmHg. Mild to moderate aortic valve stenosis. Mean peak gradient 14 mmHg. Valve area 1.3 cm??. Ordering Physician: Ang Messina Performed By: Jace Saucedo RCS Physical Exam Const alert Constitutional Narrative: again, seen on HD. lying on left side. HEENT head/scalp atraumatic and moist oral mucous membranes Resp normal respiratory effort and no retractions Resp Narrative: crackles anteriorly Cardio regular rate, regular rhythm, S1 normal heart sound and S2 normal heart sound GI normal to inspection, nondistended, normoactive bowel sounds, soft to palpation, non-tender and non-distended Extremity normal to inspection Assessment & Plan Assessment/Plan (1) CHF exacerbation: PLAN: Plan Acute HFrEF echo shows an EF 10-15% Suspected new onset CHF exacerbation with hypoxia Chest x-ray showed CHF with mild vascular congestion/interstitial edema and probable trace left pleural effusion. Had HD on 08/16 and again on 08/17. DW Dr. Steel, he advises a low-dose ACEi and to follow up with cardiology as outpt. Check home oxygen assessment prior to discharge. ESRD on HD Nephrology consulted. On HD Friday and has been compliant with sessions. Appreciate nephrology recommendations. Continue home phosphate binder and midodrine. Mild hyperkalemia Potassium 5.4 on admit. Now resolved. Monitor. Chronic medical conditions: Paroxysmal A-fib: not on anticoagulation due to history of lower GI bleed on Eliquis, history of pacemaker placement. Patient in atrial sensed, ventricular paced rhythm at 88 bpm on admit. Continue home bisoprolol. Class II obesity with LAYLA and chronic nocturnal hypoxia: Has 2 L nasal cannula bled into CPAP at night at home. Continue CPAP at night here. BMI 37 on admit, complicates hospital course and care. GERD: Continue home PPI. History of colon cancer s/p right hemicolectomy: Follows with oncology. Had right hemicolectomy done here in June 2024. On surveillance now, not on active therapy. No inpatient needs, continue outpatient follow-up. History of prior right AV fistula iatrogenic rupture: Had rupture of right forearm AV fistula in the past with subsequent placement of new AV fistula in the right upper arm. Has been utilizing new AV fistula for the past month or so with no issues. DVT prophylaxis: Heparin subcu CODE STATUS: Full code, verified Charges/Coding Visit Charges Inpatient E&M: 64873 Subs Hosp L2
[2025-08-17] MEDS: 0.9% Normal Saline 1,000 ML IV.SOLN. 1000 ML OPERA.SITE (09:00)
[2025-08-17] MEDS: PureFlow B 2K Dialysis Soln 1 BAG 6 BAG PF (09:00)
[2025-08-17] MEDS: BRIMONIDINE 0.15% 5 ML Bottle 1 DRP RIGHT EYE ×2 (09:05→20:48)
[2025-08-17] MEDS: 0.9% Saline Lock 10 ML Syringe IV ×2 (10:43→20:48)
--- NOTE | 2025-08-17 12:36 | PCM.PN.REN ---
Subjective Subjective seen on HD today Objective Data Objective Data Vital Signs: Vital Signs Temp Pulse Resp BP Pulse Ox O2 Del Method O2 Flow Rate 97.7 F L 79 15 98/56 L 96 Nasal Cannula 2 08/17/25 08:39 08/17/25 12:27 08/17/25 12:01 08/17/25 12:27 08/17/25 12:27 08/17/25 12:27 08/17/25 12:27 Oxygen Flow Rate (L/min) 2 Oxygen Delivery Method Nasal Cannula Weight: 91.8 kg Body Mass Index (BMI) 37.2 Intake & Output: Intake and Output for Last 24 Hours 08/15/25 08/16/25 08/17/25 23:59 23:59 23:59 Intake Total 880 / 880 Output Total 2230 / 2230 Balance -1350 / -1350 Lab / Micro Data 08/17/25 06:25 08/17/25 06:25 Labs: Laboratory Results - last 24 hr 08/17/25 06:25: WBC 7.2, RBC 3.29 L, Hgb 10.9 L, Hct 35.3 L, MCV 107.3 H, MCH 33.1 H, MCHC 30.9 L, RDW Std Deviation 58.4 H, RDW Coeff of Ernie 14.7 H, Plt Count 249, MPV 10.8, Sodium 134, Potassium 6.0 H*, Chloride 94 L, Carbon Dioxide 24.3, Anion Gap 16 H, BUN 50 H, Creatinine 4.69 H, Estim Creat Clear Calc 11.09 L, Est GFR (MDRD) Non-Af 9 L, BUN/Creatinine Ratio 10.6, Glucose 113 H, Calcium 9.3 Micro: Microbiology 08/15/25 20:05 Mucosa - Nasopharyngeal Respiratory Panel (PCR) - Final 08/15/25 14:33 Mucosa - Nose SARS-CoV-2, Influenza & RSV (PCR) - Final Radiography Diagnostic Testing: Radiology Impression Echocardiogram 08/15/25 17:43 Interpretation Summary Moderately dilated left ventricle. Severe generalized LV hypokinesis. Estimated LVEF 10-15%. At least stage I diastolic dysfunction. Moderately dilated right ventricular cavity with moderate RV systolic dysfunction. There is moderate biatrial dilatation. Mild-Moderate (1-2+) mitral valve insufficiency. Moderate (2+) tricuspid valve insufficiency. Right ventricular systolic pressure estimated to be 57 mmHg. Mild to moderate aortic valve stenosis. Mean peak gradient 14 mmHg. Valve area 1.3 cm??. Ordering Physician: Ang Messina Performed By: Jace Saucedo RCS Physical Exam Narrative Alert awake oriented x 3 no obvious distress no pallor no icterus no JVD s1s2 no murmurs lungs clear abdomen soft no organomegaly Assessment & Plan Assessment/Plan (1) ESRD (end stage renal disease): PLAN: HD today see orders Hyperkalemia. HD on 2k bath dyspnea. fluid overload. echo with low EF. UF after HD today. midodrine as needed
[2025-08-17] MEDS: SEVELAMER CARBONATE 800 MG TABLET 1600 MG PO ×2 (13:27→17:27)
--- NOTE | 2025-08-17 14:30 | PCM.DC.SUM ---
Providers Date of Admission: 08/15/25 Primary Care Physician: Khloe Pabon MD Consultations 08/15/25 18:42 Consult: Nephrology Routine Consulting Provider: Bhaskar Putnam Reason for Consult: ESRD on HD EMERGENT Consult: No MD Notified: Yes Date Notified: 08/15/25 Time Notified: 17:41 Method of Notification: Answering Service Reason For Visit: SOB W/ HYPOXIA Diagnosis Discharge Diagnosis (1) ESRD (end stage renal disease): Status: Chronic Code(s): N18.6 - End stage renal disease Plan Acute HFrEF echo shows an EF 10-15% Suspected new onset CHF exacerbation with hypoxia Chest x-ray showed CHF with mild vascular congestion/interstitial edema and probable trace left pleural effusion. Had HD on 08/16 and again on 08/17. DW Dr. Steel, he advises a low-dose ACEi and to follow up with cardiology as outpt. Check home oxygen assessment prior to discharge. ESRD on HD Nephrology consulted. On HD Friday and has been compliant with sessions. Appreciate nephrology recommendations. Continue home phosphate binder and midodrine. Mild hyperkalemia Potassium 5.4 on admit. Now resolved. Monitor. Chronic medical conditions: Paroxysmal A-fib: not on anticoagulation due to history of lower GI bleed on Eliquis, history of pacemaker placement. Patient in atrial sensed, ventricular paced rhythm at 88 bpm on admit. Continue home bisoprolol. Class II obesity with LAYLA and chronic nocturnal hypoxia: Has 2 L nasal cannula bled into CPAP at night at home. Continue CPAP at night here. BMI 37 on admit, complicates hospital course and care. GERD: Continue home PPI. History of colon cancer s/p right hemicolectomy: Follows with oncology. Had right hemicolectomy done here in June 2024. On surveillance now, not on active therapy. No inpatient needs, continue outpatient follow-up. History of prior right AV fistula iatrogenic rupture: Had rupture of right forearm AV fistula in the past with subsequent placement of new AV fistula in the right upper arm. Has been utilizing new AV fistula for the past month or so with no issues. DVT prophylaxis: Heparin subcu CODE STATUS: Full code, verified Medications at Discharge Home Medications bisoprolol fumarate 5 mg tablet 2.5 mg PO MOWEFR BP 05/17/21 brimonidine 0.1 % eye drops (Alphagan P) 1 drp RIGHT EYE BID glaucoma 05/31/21 fluorometholone 0.1 % eye drops,suspension 1 drp EACH EYE QODAY eye drop 05/31/21 pantoprazole 40 mg tablet,delayed release 40 mg PO DAILY reflux 30 days #0 tabs 07/02/24 midodrine 10 mg tablet 10 mg PO BID blood pressure 08/20/24 multivitamin (Daily-Francine tablet) 1 tab PO DAILY vitamin 08/20/24 colestipol 1 gram tablet 1 - 2 g PO DAILY PRN diarrhea 04/14/25 prednisone 10 mg tablet 10 mg PO DAILY 08/15/25 sucroferric oxyhydroxide 500 mg chewable tablet (Velphoro) 500 - 1,000 mg PO BID 08/15/25 OXYGEN - Supplemental ([facility] INFORMATIONAL USE ONLY) hypoxia 08/16/25 lisinopril 5 mg tablet 5 mg PO DAILY #30 tabs 08/17/25 Hospital Course Operations None Procedures 2-D Echocardiogram Summary of Care Provided Hospital Course: This is a 75-year-old female on end-stage renal disease presents with shortness of breath due to CHF exacerbation. With her being on hemodialysis, patient had dialysis on the fourth and the fifth and did well. She did have an echocardiogram that showed an EF of 10%. This is complicating her fluid retention. Patient will be started on low-dose MARGARITA inhibitor with lisinopril 5 mg. Case was discussed with cardiology and patient is to follow-up cardiology as outpatient. Patient was ambulated and did not require oxygen 3 L continuous. Patient be discharged in stable condition and to continue with her hemodialysis per her previous routine. Weight / BMI Weight Weight: 90.2 kg Body Mass Index (BMI) 36.6 ABG / Lab / Microbiology Data 08/17/25 06:25 08/17/25 06:25 Laboratory: Laboratory Results - last 24 hr 08/17/25 06:25: WBC 7.2, RBC 3.29 L, Hgb 10.9 L, Hct 35.3 L, MCV 107.3 H, MCH 33.1 H, MCHC 30.9 L, RDW Std Deviation 58.4 H, RDW Coeff of Ernie 14.7 H, Plt Count 249, MPV 10.8, Sodium 134, Potassium 6.0 H*, Chloride 94 L, Carbon Dioxide 24.3, Anion Gap 16 H, BUN 50 H, Creatinine 4.69 H, Estim Creat Clear Calc 11.09 L, Est GFR (MDRD) Non-Af 9 L, BUN/Creatinine Ratio 10.6, Glucose 113 H, Calcium 9.3 Microbiology: Microbiology 08/15/25 20:05 Mucosa - Nasopharyngeal Respiratory Panel (PCR) - Final 08/15/25 14:33 Mucosa - Nose SARS-CoV-2, Influenza & RSV (PCR) - Final D/C Instructions DC O2, CPAP, BIPAP Needs Home O2 Discharge instructions: Yes Type of respiratory needs?: Oxygen Oxygen frequency: Continuous Continuous oxygen liters per minute: 3 DC home with Oxygen: Yes Home O2 MD Review: I have reviewed the oxygen testing, and the patient qualifies for home oxygen equipment and portability. The patient is mobile in the home and the community. Meaningful Use Info Meaningful Use Meaningful Use Diagnoses (Choose all that apply): CHF CHF MARGARITA/ARB ordered at discharge?: Yes Documented LVEF (%): 10 Discharge Plan Admission Admit Date/Time: 08/15/25 17:36 Primary Reason for Your Visit: CHF exacerbation. Attending Provider: Joe Farah Primary Care Provider: Khloe Pabon Consulting Providers: Bhaskar Putnam; Ang Messina Instructions Additional Instructions / Restrictions: You developed a heart failure exacerbation (fluid build up in your lungs) causing you to be short of breath. We had to remove extra fluid with dialysis. Complicating this is that your heart is weak. I discussed with the customer support manager who advised you be started on a medication called lisinopril to help with strengthening your heart. You will also need to follow up with cardiology for outpatient follow up. Please limit you fluid intake to 1.5 liters (54 ounces, 6-3/4 cups) fluid per day. Continue your dialysis per your previous routine. Discharge Orders/Prescriptions Prescriptions: New lisinopril 5 mg Tablet 5 mg PO DAILY Qty: 30 0RF Continued bisoprolol fumarate 5 mg tablet 2.5 mg PO Rx Instructions: 1/2 tab in the evening on dialysis days // and Friday fluorometholone 0.1 % drops,suspension 1 drp EACH EYE QODAY brimonidine [Alphagan P] 0.1 % drops 1 drp RIGHT EYE BID Patient Comments: instill ONE DROP IN THE RIGHT EYE TWICE DAILY colestipol 1 gram tablet 1 - 2 g PO DAILY PRN (Reason: diarrhea) prednisone 10 mg tablet 10 mg PO DAILY Velphoro 500 mg tablet,chewable 500 - 1,000 mg PO BID Patient Comments: takes with meals sometimes, but doesn't know how often to actually take it OXYGEN - Supplemental ([facility] INFORM[facility] USE ONLY) Patient Comments: pt states she uses 3L at night. Uses [employer]. pantoprazole 40 mg Tablet,Delayed Release (Dr/Ec) 40 mg PO DAILY 30 Days Qty: 0 0RF Patient Comments: pt. only takes a couple times a week multivitamin [Daily-Francine] Tablet 1 tab PO DAILY midodrine 10 mg tablet 10 mg PO BID Rx Instructions: TAKE 1 TABLET PRIOR TO DIALYSIS Referrals / Follow Up: [facility] [Provider Group] - Within 1 Month Khloe Pabon MD [Primary Care Provider, Family Practice] - Within 2 Weeks Disposition Disposition (needs filled in before D/C Order can be placed): Home, Self Care Charges/Coding Visit Charges Inpatient E&M: 52946 Disch Hosp
--- NOTE | 2025-08-17 15:26 | CASEMGMT ---
Discharge Planning A list of?SNF providers including quality and resource use data and consistent with the patient's preferred geographic region, medical needs, and insurance network was created in CarePort Guide.? This list was provided to the RN SAKSHI. Charis Crooks, Discharge Planning Asst.
--- NOTE | 2025-08-17 15:30 | CASEMGMT ---
ROXANE CANTOR updated by nursing that patient and states she is too weak to return home and that discharge was cancelled. ROXANE CANTOR in to discuss discharge planning with patient, at bedside. Patient and states patient needs additional therapy prior to returning home and is interested in SNF for skilled LOC. ROXANE CANTOR provided SNF list to patient and and they prefer [facility] as she has been there previously. Patient and agreeable to have referral sent to [facility]. Patient and family had no further questions or concerns. ROXANE CANTOR updated DC director of financial planning to send referral to [facility]. CM will continue to follow this patient and plan for a safe discharge.
--- NOTE | 2025-08-17 15:42 | CASEMGMT ---
Addendum entered by Charis Crooks 08/18/25 12:39: [facility] has accepted. ROXANE CANTOR updated and will submit for precert. Charis Crooks DC Planning Asst. Original Note: Discharge Planning Referral sent via [facility]Port to [facility] with note to submit for precert if able to accept. Charis Crooks DC Planning Asst.
--- NOTE | 2025-08-17 21:36 | PCM.HOSP.N ---
Hospitalist Note Pt had 8 beat run VT, asymptomatic, she is s/p HD today with 1850 pulled off. Orders placed for serial CBC, BMP, with added Mg and Phos in AM.
[2025-08-18] VITALS (7 sets, daily range): BP systolic 115–135; BP diastolic 45–62; PULSE 70–79; RESP 14–18; TEMP 36–36.9; O2SAT 94–100
[2025-08-18 00:46] LABS: Potassium 6.0 mmol/L (3.3-5.1)
[2025-08-18] MEDS: SEVELAMER CARBONATE 800 MG TABLET 1600 MG PO ×3 (06:07→16:57)
[2025-08-18] MEDS: Heparin Injection (Vial) 5,000 UNIT/ML VIAL 5000 UNIT SC ×3 (06:07→22:00)
[2025-08-18 07:09] LABS: Hematocrit 35.5 % (37-47); Hemoglobin 11.0 g/dL (12.0-15.0); Immature Granulocytes Count 0.050 X10^3/uL (0.0-0.0); Mean Corp Hgb Conc 31.0 g/dL (32-36); Mean Corpuscular Volume 107.6 fL (81-99); Mean Platelet Vol. 10.6 fl (6.2-12.0); NRBC Flagged by Analyzer 0 % (0-5); POSITIVE DIFFERENTIAL YES; Platelet Count 271 K/mm3 (150-450); RBC Distribution Width CV 14.6 % (11.6-14.6); RBC Distribution Width SD 58.4 fl (35.1-43.9); Red Blood Count 3.30 M/mm3 (4.2-5.4); White Blood Count 8.1 K/mm3 (4.4-11.0)
--- NOTE | 2025-08-18 07:38 | PN.HOSP_ITS ---
Reason for Visit
--- NOTE | 2025-08-18 07:38 | PCM.PN.HOSP ---
Reason for Visit Chief Complaint: Shortness of breath with exertion Subjective Subjective Pt unable to be discharged yesterday given weakness. Still feeling very weak. Objective Data Objective Data Vital Signs: Vital Signs Temp Pulse Resp BP Pulse Ox O2 Del Method O2 Flow Rate 36.2 C L 78 14 135/59 H 100 CPAP 2 08/18/25 03:45 08/18/25 03:45 08/18/25 03:45 08/18/25 03:45 08/18/25 03:45 08/18/25 03:50 08/18/25 03:50 Oxygen Flow Rate (L/min) 2 Oxygen Delivery Method CPAP Weight: 90.2 kg Body Mass Index (BMI) 36.6 Intake & Output: Intake and Output for Last 24 Hours 08/16/25 08/17/25 08/18/25 23:59 23:59 23:59 Intake Total 880 / 880 960 / 960 240 / 240 Output Total 2230 / 2230 1850 / 1850 Balance -1350 / -1350 -890 / -890 240 / 240 Lab / Micro Data 08/18/25 06:40 08/18/25 06:40 Labs: Laboratory Results - last 24 hr 08/17/25 06:25: Sodium 134, Potassium 6.0 H*, Chloride 94 L, Carbon Dioxide 24.3, Anion Gap 16 H, BUN 50 H, Creatinine 4.69 H, Estim Creat Clear Calc 11.09 L, Est GFR (MDRD) Non-Af 9 L, BUN/Creatinine Ratio 10.6, Glucose 113 H, Calcium 9.3 08/18/25 06:40: WBC 8.1, RBC 3.30 L, Hgb 11.0 L, Hct 35.5 L, MCV 107.6 H, MCH 33.3 H, MCHC 31.0 L, RDW Std Deviation 58.4 H, RDW Coeff of Ernie 14.6, Plt Count 271, MPV 10.6, Immature Gran % (Auto) 0.600, Neut % (Auto) 81.2 H, Lymph % (Auto) 6.8 L, [place] % (Auto) 8.4, Eos % (Auto) 2.6, Baso % (Auto) 0.4, Absolute Neuts (auto) 6.6, Absolute Lymphs (auto) 0.55 L, Nucleated RBC % 0 Micro: Microbiology 08/15/25 20:05 Mucosa - Nasopharyngeal Respiratory Panel (PCR) - Final 08/15/25 14:33 Mucosa - Nose SARS-CoV-2, Influenza & RSV (PCR) - Final Physical Exam Const alert and no apparent distress Constitutional Narrative: up at the side of bed, on room air. While on room air, was not in any respiratory distress nor showing signs of conversational dyspnea. I later placed nasal canula oxygen on her. HEENT head/scalp atraumatic and moist oral mucous membranes Resp normal respiratory effort and no retractions Cardio regular rate, regular rhythm, S1 normal heart sound and S2 normal heart sound GI normal to inspection, nondistended, normoactive bowel sounds, soft to palpation, non-tender and non-distended Extremity General Extremity: edema bilateral lower extremity Details: moderate Neuro Sensorium / Orientation: awake and alert Assessment & Plan Assessment/Plan (1) ESRD (end stage renal disease): PLAN: Plan Acute HFrEF echo shows an EF 10-15% Suspected new onset CHF exacerbation with hypoxia Chest x-ray showed CHF with mild vascular congestion/interstitial edema and probable trace left pleural effusion. Had HD on 08/16 and again on 08/17. DW Dr. Steel, he advises a low-dose ACEi and to follow up with cardiology as outpt. Check home oxygen assessment prior to discharge. ESRD on HD Nephrology consulted. On HD Friday and has been compliant with sessions. Appreciate nephrology recommendations. Continue home phosphate binder and midodrine. Mild hyperkalemia Potassium 5.4 on admit. Now resolved. Monitor. Debility: pt too weak and barely able to make it to the door. PT OT Chronic medical conditions: Paroxysmal A-fib: not on anticoagulation due to history of lower GI bleed on Eliquis, history of pacemaker placement. Patient in atrial sensed, ventricular paced rhythm at 88 bpm on admit. Continue home bisoprolol. Class II obesity with LAYLA and chronic nocturnal hypoxia: Has 2 L nasal cannula bled into CPAP at night at home. Continue CPAP at night here. BMI 37 on admit, complicates hospital course and care. GERD: Continue home PPI. History of colon cancer s/p right hemicolectomy: Follows with oncology. Had right hemicolectomy done here in June 2024. On surveillance now, not on active therapy. No inpatient needs, continue outpatient follow-up. History of prior right AV fistula iatrogenic rupture: Had rupture of right forearm AV fistula in the past with subsequent placement of new AV fistula in the right upper arm. Has been utilizing new AV fistula for the past month or so with no issues. DVT prophylaxis: Heparin subcu CODE STATUS: Full code, verified Charges/Coding Visit Charges Inpatient E&M: 13377 Subs Hosp L2
[2025-08-18 07:41] LABS: Magnesium 2.4 mg/dL (1.5-2.2)
[2025-08-18 07:49] LABS: Anion Gap 12 (5-15); BUN 37 mg/dL (4-19); BUN/Creat Ratio 9.5 RATIO (10-20); Calcium,Total 9.5 mg/dL (7.6-11.0); Carbon Dioxide 27.3 mmol/L (21.0-32.0); Chloride 96 mmol/L (98-108); Estimated Creatinine Clearance 13.35 ml/min (50-250); Glucose 117 mg/dL (70-99); Potassium 5.9 mmol/L (3.3-5.1)
[2025-08-18] MEDS: BRIMONIDINE 0.15% 5 ML Bottle 1 DRP RIGHT EYE ×2 (09:32→22:00)
[2025-08-18] MEDS: 0.9% Saline Lock 10 ML Syringe IV ×2 (10:46→22:00)
--- NOTE | 2025-08-18 12:00 | CASEMGMT ---
Addendum entered by Segundo Willoughby 08/18/25 17:10: Pt made aware [facility] can accept her. Call placed to and he was also notified. Addendum entered by Segundo Willoughby 08/18/25 17:10: 12:00 PM: inquired about transport to [facility] from [facility]. He was made aware pt's insurance most likely will not cover for transport. He states he has transported pt before and if he is able to get her in/out of his vehicle then he can take her. Original Note: ROXANE CANTOR NOTE: [facility] had several questions re: pt. ROXANE CANTOR spoke to pt's . He verifies he can transport pt to/from OP HD MWF @ [facility] in [place]. [facility] also inquired if pt is receiving treatment for colon CA. He states pt is not currently receiving treatment. also verifies pt plans to return home w/ after being discharged from SNF. Pt has been wearing her PAP while @ [facility] and this can be sent to [facility] @ hi. Message sent to [facility] notifying them of all of the above. Dilip BLANCO RN CM
[2025-08-18 15:20] LABS: Allen Test Positive; Base Excess 2 mmol/L (-2 to +2); FI02 2.0; PO2 70 mmHG (75-100); SITE L Radial; SO2 88 % (94-98); Time Given 15:18:21
--- NOTE | 2025-08-18 15:45 | RAD_ITS ---
PROCEDURE: RAD/Chest 1 View (Portable)
[2025-08-18 16:27] LABS: Ammonia 21.4 umol/L (11-51)
--- NOTE | 2025-08-18 20:13 | PCM.HOSP.N ---
Hospitalist Note Nrsg and Rt concerned pt is not improving with her respiratory status, state that she is still altered. Repeat ABG order placed. 2036-ABG demonstrates adequate improvement, pCO2 down to 60.7 from 76.4, and pt is now more aware of surroundings. Continue current AVAPs settings.
[2025-08-18 20:40] LABS: Allen Test Negative; Base Excess 4 mmol/L (-2 to +2); Comment AVAPS; FI02 30.0; PO2 97 mmHG (75-100); SITE L Radial; SO2 97 % (94-98)
[2025-08-19] VITALS (44 sets, daily range): BP systolic 77–104; BP diastolic 41–72; PULSE 66–81; RESP 15–26; TEMP 35.8–36.8; O2SAT 82–100; BMI 36.6; BMI 35.8
[2025-08-19 05:13] LABS: Hematocrit 34.0 % (37-47); Hemoglobin 10.4 g/dL (12.0-15.0); Immature Granulocytes Count 0.030 X10^3/uL (0.0-0.0); Mean Corp Hgb Conc 30.6 g/dL (32-36); Mean Corpuscular Volume 106.9 fL (81-99); Mean Platelet Vol. 10.4 fl (6.2-12.0); NRBC Flagged by Analyzer 0 % (0-5); POSITIVE DIFFERENTIAL YES; Platelet Count 257 K/mm3 (150-450); RBC Distribution Width CV 14.7 % (11.6-14.6); RBC Distribution Width SD 58.0 fl (35.1-43.9); Red Blood Count 3.18 M/mm3 (4.2-5.4); White Blood Count 6.1 K/mm3 (4.4-11.0)
[2025-08-19 05:37] LABS: Anion Gap 12 (5-15); BUN 51 mg/dL (4-19); BUN/Creat Ratio 10.3 RATIO (10-20); Calcium,Total 9.1 mg/dL (7.6-11.0); Carbon Dioxide 25.2 mmol/L (21.0-32.0); Chloride 96 mmol/L (98-108); Estimated Creatinine Clearance 10.47 ml/min (50-250); Glucose 87 mg/dL (70-99); Potassium 5.9 mmol/L (3.3-5.1)
[2025-08-19] MEDS: SEVELAMER CARBONATE 800 MG TABLET 1600 MG PO (06:13)
[2025-08-19] MEDS: Heparin Injection (Vial) 5,000 UNIT/ML VIAL 5000 UNIT SC ×3 (06:13→21:11)
[2025-08-19 07:27] LABS: Base Excess 3 mmol/L (-2 to +2); FI02 35.0; PEEP 8; PO2 115 mmHG (75-100); RR 16; SITE L Radial; SO2 98 % (94-98); Time Given 07:25:49
--- NOTE | 2025-08-19 07:52 | PN.HOSP_ITS ---
Reason for Visit
--- NOTE | 2025-08-19 07:52 | PCM.PN.HOSP ---
Reason for Visit Chief Complaint: Shortness of breath with exertion Subjective Subjective Expressed to apprenticeship training representative about wanting to . Does not specify this to me when I saw her this AM. Placed on BiPAP yesterday. Objective Data Objective Data Vital Signs: Vital Signs Temp Pulse Resp BP Pulse Ox O2 Del Method O2 Flow Rate 36.1 C L 70 19 H 101/58 L 98 Bi-pap 3 08/19/25 03:55 08/19/25 07:09 08/19/25 07:09 08/19/25 03:55 08/19/25 07:09 08/19/25 03:56 08/18/25 22:28 FiO2 35 08/19/25 07:09 Oxygen Flow Rate (L/min) 3 Oxygen Delivery Method Bi-pap Weight: 90.2 kg Body Mass Index (BMI) 36.6 Intake & Output: Intake and Output for Last 24 Hours 08/17/25 08/18/25 08/19/25 23:59 23:59 23:59 Intake Total 960 / 960 1060 / 1060 0 / 0 Output Total 1850 / 1850 0 / 0 0 / 0 Balance -890 / -890 1060 / 1060 0 / 0 Lab / Micro Data 08/19/25 04:47 08/19/25 04:47 Labs: Laboratory Results - last 24 hr 08/18/25 10:44: POC Glucose 106 08/18/25 15:57: Ammonia 21.4 08/19/25 04:47: WBC 6.1, RBC 3.18 L, Hgb 10.4 L, Hct 34.0 L, MCV 106.9 H, MCH 32.7 H, MCHC 30.6 L, RDW Std Deviation 58.0 H, RDW Coeff of Ernie 14.7 H, Plt Count 257, MPV 10.4, Immature Gran % (Auto) 0.500, Neut % (Auto) 78.2 H, Lymph % (Auto) 8.7 L, [place] % (Auto) 9.9, Eos % (Auto) 2.0, Baso % (Auto) 0.7, Absolute Neuts (auto) 4.8, Absolute Lymphs (auto) 0.53 L, Nucleated RBC % 0, Sodium 133, Potassium 5.9 H, Chloride 96 L, Carbon Dioxide 25.2, Anion Gap 12, BUN 51 H, Creatinine 4.92 H, Estim Creat Clear Calc 10.47 L, Est GFR (MDRD) Non-Af 9 L, BUN/Creatinine Ratio 10.3, Glucose 87, Calcium 9.1 Micro: Microbiology 08/15/25 20:05 Mucosa - Nasopharyngeal Respiratory Panel (PCR) - Final 08/15/25 14:33 Mucosa - Nose SARS-CoV-2, Influenza & RSV (PCR) - Final ABG Data ABG results: ABG 08/18/25 08/18/25 08/19/25 15:16 20:37 07:23 Specimen Type ART ART ART Sample Site L Radial L Radial L Radial pH 7.20 L* 7.30 L 7.25 L Bicarbonate Actual 30.0 H 29.9 H 30.1 H Total CO2 32 32 32 Base Excess 2 4 H 3 H O2 Saturation 88 L 97 98 O2 % 2.0 30.0 35.0 ABG pCO2 76.4 H* 60.7 H 68.9 H* ABG pO2 70 L 97 115 H Serjio Test Positive Negative Respiration Rate 16 O2 Delivery Device Cannula BiPAP BiPAP Vent Mode Not entered Not entered AVAPS Tidal Volume 450.0 POC PEEP 8 Crit Call To/Read Back Yes Yes Blood Gas Notified Whom guicho HUMMEL Blood Gas Notified Time 15:18:21 07:25:49 Clinical Comments AVAPS Radiography Diagnostic Testing: Radiology Impression Chest X-Ray 08/18/25 15:45 IMPRESSION: Left thoracic transvenous pacemaker/AICD device with leads again seen. The cardiomediastinal silhouette is stable, with a calcified and tortuous aorta noted. Generalized osteopenia is again prominently identified. Lungs are significantly hypoinflated,, with questionable small left pleural effusion. No pneumothorax is seen. No gross acute pneumonic process is otherwise seen. Reading Location: [place] [address] Physical Exam Const Constitutional Narrative: seen on HD and BiPAP. No respiratory distress. HEENT head/scalp atraumatic and moist oral mucous membranes Resp Resp Narrative: coarse breath sounds bilaterally while on BiPAP. Cardio regular rate, regular rhythm, S1 normal heart sound and S2 normal heart sound GI normal to inspection, nondistended, normoactive bowel sounds, soft to palpation, non-tender and non-distended Extremity normal to inspection, full ROM and no clubbing, cyanosis or edema Neuro oriented x3, CN's II-XII intact bilaterally, moves all extremities, no focal motor deficits and no sensory deficits noted Sensorium / Orientation: awake and alert Assessment & Plan Assessment/Plan (1) ESRD (end stage renal disease): PLAN: Plan Acute HFrEF echo shows an EF 10-15% Suspected new onset CHF exacerbation with hypoxia Chest x-ray showed CHF with mild vascular congestion/interstitial edema and probable trace left pleural effusion. Had HD on 08/16 and again on 08/17. DW Dr. Steel, he advises a low-dose ACEi and to follow up with cardiology as outpt. Check home oxygen assessment prior to discharge. ESRD on HD Nephrology consulted. On HD Friday and has been compliant with sessions. Appreciate nephrology recommendations. Continue home phosphate binder and midodrine. Mild hyperkalemia 5.9. Pt to have HD today. Debility: pt too weak and barely able to make it to the door. PT OT eval plan for SNF when medically ready for discharge. Acute Respiratory hypercapnic failure and acidosis 2/2 CHF, pleural effusion, LAYLA. noted increased lethargy and confusion 08/18. ABG c/w respiratory acidosis. Pt ordered back on BiPAP. Repeat ABG this AM shows, showed slight improvement but still abnormal. Continue BiPAP. Consult pulmonary for further input. limited CXR on 08/18 due to hypoinflation, possible left pleural effusion. check chest CT w/o contrast. Chronic medical conditions: Paroxysmal A-fib: not on anticoagulation due to history of lower GI bleed on Eliquis, history of pacemaker placement. Patient in atrial sensed, ventricular paced rhythm at 88 bpm on admit. Continue home bisoprolol. Class II obesity with LAYLA and chronic nocturnal hypoxia: Has 2 L nasal cannula bled into CPAP at night at home. Continue CPAP at night here. BMI 37 on admit, complicates hospital course and care. GERD: Continue home PPI. History of colon cancer s/p right hemicolectomy: Follows with oncology. Had right hemicolectomy done here in June 2024. On surveillance now, not on active therapy. No inpatient needs, continue outpatient follow-up. History of prior right AV fistula iatrogenic rupture: Had rupture of right forearm AV fistula in the past with subsequent placement of new AV fistula in the right upper arm. Has been utilizing new AV fistula for the past month or so with no issues. DVT prophylaxis: Heparin subcu CODE STATUS: Full code, verified Patient expressing desire to to staff. Too confused for me to have goals of care conversation at this time. Will consult palliative care for assistance. Charges/Coding Visit Charges Inpatient E&M: 85466 Subs Hosp L2
--- NOTE | 2025-08-19 08:01 | CT_ITS ---
PROCEDURE: CT/Chest without Contrast
[2025-08-19] MEDS: PureFlow B 2K Dialysis Soln 1 BAG 6 BAG PF (08:15)
[2025-08-19] MEDS: 0.9% Normal Saline 1,000 ML IV.SOLN. 1000 ML OPERA.SITE (08:15)
--- NOTE | 2025-08-19 08:30 | NURSING ---
Dr. Farah at bedside to assess patient. Patient drowsy, not responding at this time. health spa manager at bedside
--- NOTE | 2025-08-19 09:38 | PCMCONS.TICU ---
HPI Consult Data Date of Consult: 08/19/25 HPI Narrative Reason for Consultation: Hypercapnic Respiratory Failure HPI Narrative: CLINTON COYLE, is a 75 F with ESRD, history of Afib, colon cancer s/p hemicolectomy who was presented to the hospital on 08/15/25 with increased dyspnea. Her workup included an echocardiogram which demonstated a dilated LV with global hypokinesis and an EF of 10-15%. Over the course of her hospitalization she has had a decline in her level of interaction with family/staff and overnight on 08/18 an abg demonstrated a respiratory acidosis and she was placed on bipap. At the time of my assessment she was getting HD; she was able to rouse when prodded by staff and answered hospital when asked if she knew where she was. [facility] Medical History Dialysis patient Kidney disease ICD (implantable cardioverter-defibrillator) in place Pacemaker Vascular dialysis catheter in place History of Clostridium difficile infection Cancer Bruising Easy bruising Restless legs History of GI bleed On home oxygen therapy Hypertension History of pacemaker Heel spur Colon cancer Colonic mass ESRD (end stage renal disease) Hypercalcemia Wears glasses History of steroid therapy Walker as ambulation aid Diabetes History of renal dialysis History of renal disease Anemia Dietary restriction History of diverticulitis Former smoker BiPAP (biphasic positive airway pressure) dependence Sleep apnea Shortness of breath on exertion History of edema History of echocardiogram Cardiology follow-up encounter History of irregular heartbeat Restrictive lung disease Morbid obesity Pacemaker Heart disease Bone spur Low blood pressure Acute renal failure (ARF) Home Medications ?Medication ?Instructions ?Recorded ?Last Taken ?Type bisoprolol fumarate 5 mg tablet 2.5 mg PO MOWEFRSA BP 05/17/21 04/25/25 History brimonidine 0.1 % eye drops 1 drp RIGHT EYE BID glaucoma 05/31/21 04/26/25 History (Alphagan P) fluorometholone 0.1 % eye 1 drp EACH EYE QODAY eye drop 05/31/21 08/19/24 History drops,suspension pantoprazole 40 mg tablet,delayed 40 mg PO DAILY reflux 30 days #0 07/02/24 04/26/25 Rx release tabs midodrine 10 mg tablet 10 mg PO BID blood pressure 08/20/24 04/27/25 History multivitamin (Daily-Francine tablet) 1 tab PO DAILY vitamin 08/20/24 04/27/25 History colestipol 1 gram tablet 1 - 2 g PO DAILY PRN diarrhea 04/14/25 04/27/25 History prednisone 10 mg tablet 10 mg PO DAILY inflammation 08/15/25 Unknown History sucroferric oxyhydroxide 500 mg 500 - 1,000 mg PO BID 08/15/25 Unknown History chewable tablet (Velphoro) OXYGEN - Supplemental ([facility] hypoxia 08/16/25 Unknown History INFORMATIONAL USE ONLY) lisinopril 5 mg tablet 5 mg PO DAILY #30 tabs 08/17/25 Unknown Rx Allergy/AdvReac Type Severity Reaction Status Date / Time Tetracyclic Antidepressants Allergy Intermediate Other Verified 08/15/25 13:19 Tricyclic Antidepressants Allergy Intermediate Other Verified 08/15/25 13:19 and Tricy ibuprofen Allergy Mild PT UNSURE Verified 08/15/25 13:19 OF REACTION Phenylpiperazine Allergy NEEDS Verified 08/15/25 13:19 Antidepressant FOLLOW-UP apixaban (From Eliquis) AdvReac Severe bleeding Verified 08/15/25 13:19 Family History Father Diabetes Heart disease Mother Heart disease Surgical History History of cholecystectomy History of implantable cardiac defibrillator (ICD) History of colonoscopy History of esophagogastroduodenoscopy (EGD) S/P right hemicolectomy History of arteriovenostomy for renal dialysis S/P cardiac pacemaker procedure S/P laparoscopic cholecystectomy Social History household members: spouse Smoking Status: Former smoker Tobacco: How many years used: 10 how long ago did patient quit smokin years alcohol intake: never Objective Data Objective Data Vital Signs: Vital Signs Last response Temperature 35.8 C L 08/19/25 08:10 Temperature Source Temporal 08/19/25 08:10 Pulse Rate 69 08/19/25 09:32 Pulse Strength Normal (2+) 08/19/25 08:25 Respiratory Rate 19 H 08/19/25 09:32 Respiratory Effort Short of Breath, Labored, Accessory Muscle Use 08/19/25 07:30 Respiratory Depth Normal 08/19/25 03:56 Respiratory Pattern Tachypnea 08/19/25 07:30 Blood Pressure 100/57 L 08/19/25 09:32 Blood Pressure Mean 71 08/19/25 09:32 Blood Pressure Source Monitor 08/19/25 09:32 Blood Pressure Position Semi-Fowlers 08/19/25 09:32 Blood Pressure Location Left Arm 08/19/25 09:32 Pulse Ox 100 08/19/25 09:32 Oxygen Delivery Method Bi-pap 08/19/25 09:32 Oxygen Flow Rate (L/min) 3 08/18/25 22:28 Fraction of Inspired Oxygen (FIO2) 35 08/19/25 09:32 I&O: I&O Last 24 Hours 08/18/25 08/18/25 08/19/25 11:59 23:59 11:59 Intake Total 240 / 1060 820 / 1060 0 / 0 Output Total 0 / 0 0 / 0 Balance 240 / 1060 820 / 1060 0 / 0 I&O: Total Stay 08/15/25 13:18 thru 08/19/25 07:30 Intake Total 2900 Output Total 4080 Balance -1180 Current Meds Ordered / Administered: Current meds ordered / Administered Generic Name Dose Route Start Last Admin Trade Name Tannerq PRN Reason Stop Dose Admin Acetaminophen 650 mg 08/15/25 18:42 08/19/25 01:37 Acetaminophen 325 Mg Tablet PO 650 mg Q6H PRN PRN Administration Pain 1-10 Or Fever>100.7 Bisoprolol Fumarate 2.5 mg 08/15/25 18:45 08/17/25 17:28 Bisoprolol Fumarate 5 Mg Tablet PO 2.5 mg MOWEFRSA SIMONE Administration Brimonidine Tartrate 1 drp 08/15/25 22:00 08/18/25 22:00 Brimonidine 0.15% 5 Ml Bottle RIGHT EYE 1 drp BID SIMONE Administration Colestipol HCl 1 gm 08/15/25 18:42 Colestipol 1 Gm Tablet PO DAILY PRN DIARRHEA Hemodialysis Solution 6 bag 08/19/25 07:30 08/19/25 08:15 Pureflow B 2k Dialysis Soln 1 Bag PF 08/19/25 19:18 6 bag UD SIMONE Administration Protocol Heparin Sodium (Porcine) 5,000 unit 08/15/25 22:00 08/19/25 06:13 Heparin Injection (Vial) 5,000 Unit/Ml Vial SC 5,000 unit Q8 SIMONE Administration Sodium Chloride 250 mls @ 15 mls/hr 08/15/25 18:44 IV .[id number] PRN Saline Flush Sodium Chloride 250 mls @ 15 mls/hr 08/15/25 18:44 IV .[id number] PRN Additional IVPB Infusion Lisinopril 5 mg 08/16/25 14:30 08/18/25 10:46 Lisinopril 5 Mg Tablet PO 5 mg DAILY SIMONE Administration Protocol Melatonin 3 mg 08/15/25 18:42 Melatonin 3 Mg Tablet PO QHS PRN PRN INSOMNIA Midodrine 10 mg 08/15/25 22:00 08/19/25 08:17 Midodrine Hcl 5 Mg Tablet PO 10 mg BID SIMONE Administration Multivitamins 1 tablet 08/16/25 08:00 08/18/25 09:32 Multivitamins,Therapeutic Tablet PO 1 tablet DAILYCM SIMONE Administration Ondansetron HCl 4 mg 08/15/25 18:42 08/18/25 10:46 Ondansetron 4 Mg/2 Ml Vial IV 4 mg Q8H PRN PRN Administration NAUSEA/VOMITING Pantoprazole Sodium 40 mg 08/16/25 10:00 08/18/25 09:32 Pantoprazole Sodium 40 Mg Tablet PO 40 mg DAILY SIMONE Administration Prednisone 10 mg 08/16/25 10:00 08/18/25 09:32 Prednisone 10 Mg Tablet PO 10 mg DAILY SIMONE Administration Sevelamer Carbonate 1,600 mg 08/16/25 07:00 08/19/25 06:13 Sevelamer Carbonate 800 Mg Tablet PO 1,600 mg TIDAC SIMONE Administration Sodium Chloride 10 - 40 ml 08/15/25 18:44 08/18/25 22:00 0.9% Saline Lock 10 Ml Syringe IV 10 ml UD PRN Administration SALINE FLUSH Sodium Chloride 1,000 ml 08/19/25 07:20 08/19/25 08:15 0.9% Normal Saline 1,000 Ml Iv.Soln. OPERA.SITE 08/19/25 19:17 1,000 ml X1 SIMONE Administration Sodium Chloride 200 ml 08/19/25 07:17 0.9% Normal Saline 1,000 Ml Iv.Soln. IV 08/19/25 19:17 X1 PRN to maintain SBP >90mmHg during Dialysis Physical Exam Narrative G- ill-appearing, on bipap, rouses when stimulated ENT- bipap mask in place CV- rrr L- no wheezes, fair air movement Ab- s nt nd + bs Ext- + edema Neuro- no obvious focal deficits, pt not able to fully participate Psych- calm Lab / Micro Data 08/19/25 04:47 08/19/25 04:47 Labs: Laboratory Results - last 24 hr 08/18/25 10:44: POC Glucose 106 08/18/25 15:57: Ammonia 21.4 08/19/25 04:47: WBC 6.1, RBC 3.18 L, Hgb 10.4 L, Hct 34.0 L, MCV 106.9 H, MCH 32.7 H, MCHC 30.6 L, RDW Std Deviation 58.0 H, RDW Coeff of Ernie 14.7 H, Plt Count 257, MPV 10.4, Immature Gran % (Auto) 0.500, Neut % (Auto) 78.2 H, Lymph % (Auto) 8.7 L, [place] % (Auto) 9.9, Eos % (Auto) 2.0, Baso % (Auto) 0.7, Absolute Neuts (auto) 4.8, Absolute Lymphs (auto) 0.53 L, Nucleated RBC % 0, Sodium 133, Potassium 5.9 H, Chloride 96 L, Carbon Dioxide 25.2, Anion Gap 12, BUN 51 H, Creatinine 4.92 H, Estim Creat Clear Calc 10.47 L, Est GFR (MDRD) Non-Af 9 L, BUN/Creatinine Ratio 10.3, Glucose 87, Calcium 9.1 ABG Data ABG results: ABG 08/18/25 08/18/25 08/19/25 15:16 20:37 07:23 Specimen Type ART ART ART Sample Site L Radial L Radial L Radial pH 7.20 L* 7.30 L 7.25 L Bicarbonate Actual 30.0 H 29.9 H 30.1 H Total CO2 32 32 32 Base Excess 2 4 H 3 H O2 Saturation 88 L 97 98 O2 % 2.0 30.0 35.0 ABG pCO2 76.4 H* 60.7 H 68.9 H* ABG pO2 70 L 97 115 H Serjio Test Positive Negative Respiration Rate 16 O2 Delivery Device Cannula BiPAP BiPAP Vent Mode Not entered Not entered AVAPS Tidal Volume 450.0 POC PEEP 8 Crit Call To/Read Back Yes Yes Blood Gas Notified Whom guicho HUMMEL Blood Gas Notified Time 15:18:21 07:25:49 Clinical Comments [facility] Imaging Radiology Impression Chest X-Ray 08/18/25 15:45 IMPRESSION: Left thoracic transvenous pacemaker/AICD device with leads again seen. The cardiomediastinal silhouette is stable, with a calcified and tortuous aorta noted. Generalized osteopenia is again prominently identified. Lungs are significantly hypoinflated,, with questionable small left pleural effusion. No pneumothorax is seen. No gross acute pneumonic process is otherwise seen. Reading Location: [place] [address] Assessment and Plan . Assessment and plan: Assessment/Plan HFrEF/Dilated Cardiomyopathy Acute Hypercapnic Respiratory Failure ESRD Metabolic Encephalopathy History of Colon Cancer Hypotension Left Pleural Effusion -given decline in her condition despite aggressive measures with HD suggest transferring to ICU for initiation of inotrope therapy -she may benefit from continuous renal replacement given fluctuations in BP with HD -agree with use of bipap for hypercapnia; given her overall condition she is at risk for requiring invasive mechanical ventilation -check f/u ABG 30 minutes after HD session complete -CT chest ordered by primary team to further assess findings on CXR; if she is stable enough to get that study we will review it, meanwhile follow radiographs -consider reaching out to a center with a dedicated heart failure/recovery program given the above issues Critical Care Time: 67 minutes The entirety of this encounter was done via Telemedicine
--- NOTE | 2025-08-19 10:22 | CASEMGMT ---
Discharge Planning [facility] updated that we will likely submit for precert today and pt could potentially admit over the weekend. Green Sheet completed and sent to RN CM. Pt must be in building by 6p if admitting on Sat/Sun. This was written on green sheet. Charis Crooks DC Planning Asst.
--- NOTE | 2025-08-19 10:54 | CASEMGMT ---
ROXANE CANTOR completed PASRR at this time. Copy placed in discharge packet and copy placed in patient's chart.
--- NOTE | 2025-08-19 11:17 | NURSING ---
plan for isolated UF only after regular HD per md senior research scientist. time & goal tbd by pt resposonse to uf.
--- NOTE | 2025-08-19 11:44 | PCM.CONS.P ---
COUNTS INCLUDE 234 BEDS AT THE [facility] Medical History Dialysis patient Kidney disease ICD (implantable cardioverter-defibrillator) in place Pacemaker Vascular dialysis catheter in place History of Clostridium difficile infection Cancer Bruising Easy bruising Restless legs History of GI bleed On home oxygen therapy Hypertension History of pacemaker Heel spur Colon cancer Colonic mass ESRD (end stage renal disease) Hypercalcemia Wears glasses History of steroid therapy Walker as ambulation aid Diabetes History of renal dialysis History of renal disease Anemia Dietary restriction History of diverticulitis Former smoker BiPAP (biphasic positive airway pressure) dependence Sleep apnea Shortness of breath on exertion History of edema History of echocardiogram Cardiology follow-up encounter History of irregular heartbeat Restrictive lung disease Morbid obesity Pacemaker Heart disease Bone spur Low blood pressure Acute renal failure (ARF) Home Medications ?Medication ?Instructions ?Recorded ?Last Taken ?Type bisoprolol fumarate 5 mg tablet 2.5 mg PO MOWEFRSA BP 05/17/21 04/25/25 History brimonidine 0.1 % eye drops 1 drp RIGHT EYE BID glaucoma 05/31/21 04/26/25 History (Alphagan P) fluorometholone 0.1 % eye 1 drp EACH EYE QODAY eye drop 05/31/21 08/19/24 History drops,suspension pantoprazole 40 mg tablet,delayed 40 mg PO DAILY reflux 30 days #0 07/02/24 04/26/25 Rx release tabs midodrine 10 mg tablet 10 mg PO BID blood pressure 08/20/24 04/27/25 History multivitamin (Daily-Francine tablet) 1 tab PO DAILY vitamin 08/20/24 04/27/25 History colestipol 1 gram tablet 1 - 2 g PO DAILY PRN diarrhea 04/14/25 04/27/25 History prednisone 10 mg tablet 10 mg PO DAILY inflammation 08/15/25 Unknown History sucroferric oxyhydroxide 500 mg 500 - 1,000 mg PO BID 08/15/25 Unknown History chewable tablet (Velphoro) OXYGEN - Supplemental ([facility] hypoxia 08/16/25 Unknown History INFORMATIONAL USE ONLY) lisinopril 5 mg tablet 5 mg PO DAILY #30 tabs 08/17/25 Unknown Rx Allergy/AdvReac Type Severity Reaction Status Date / Time Tetracyclic Antidepressants Allergy Intermediate Other Verified 08/15/25 13:19 Tricyclic Antidepressants Allergy Intermediate Other Verified 08/15/25 13:19 and Tricy ibuprofen Allergy Mild PT UNSURE Verified 08/15/25 13:19 OF REACTION Phenylpiperazine Allergy NEEDS Verified 08/15/25 13:19 Antidepressant FOLLOW-UP apixaban (From Eliquis) AdvReac Severe bleeding Verified 08/15/25 13:19 Family History Father Diabetes Heart disease Mother Heart disease Surgical History History of cholecystectomy History of implantable cardiac defibrillator (ICD) History of colonoscopy History of esophagogastroduodenoscopy (EGD) S/P right hemicolectomy History of arteriovenostomy for renal dialysis S/P cardiac pacemaker procedure S/P laparoscopic cholecystectomy Social History household members: spouse Smoking Status: Former smoker Tobacco: How many years used: 10 how long ago did patient quit smokin years alcohol intake: never ROS ROS Narrative Very limited related to mental status Review of Systems ROS Unobtainable: due to mental status Constitutional Constitutional: Reports weakness and weight gain Cardiovascular Cardiovascular: Reports leg edema Respiratory/Chest Respiratory/Chest: Reports dyspnea and dyspnea on exertion Physical Exam Const Orientation / Consciousness: lethargic HEENT normocephalic Neck General: trachea midline Lymph Lymphatic: lymphedema Resp Auscultation: diminished lung sounds Cardio Rhythm: abnormal rhythm GI soft to palpation and non-tender Extremity Peripheral Pulses: Yes pulses 2+ throughout Skin no rashes or lesions noted Neuro Speech: speech normal Psych Mood & Affect: flat affect Charges/Coding Palliative Care Palliative Care: 62901 New Pt Consult 80+ min HPI Current admission Current Code Status: full code Associated Diagnosis: CHF EF 10-15% Consult Data Date of Consult: 08/19/25 Location of consult: PCU Reason for referral: goals and code status Referral source: [facility] Palliative care diagnosis (Summary list): HFrEF, dialysis Palliative care services/treatment (Accepted, as consult): Accepted Case discussed with referring provider: CODE STATUS change and goals of care HPI Narrative HPI Narrative: PAIN ASSESSMENT denied pain at this time Prior to meeting with the patient at bedside I reviewed documentation labs and radiological studies. I then met with the patient and her family at bedside. I introduced myself and the concept of palliative care in which they voluntarily excepted our services. Genny has history of heart failure with reduced EF with an LVEF of 10 to 15%, atrial fibrillation, colon cancer status post hemicolectomy, end-stage renal disease who presented to the emergency department on 08/15 with hypoxia and fluid volume overload. During her stay she became progressively worse and had confusion. She was found to have an elevated CO2 in which she was started on BiPAP. Her last CO2 today while on BiPAP was 68.9. She did go to dialysis and received dialysis today without incident. While she was in dialysis she did tell the provider that I do not want this anymore. That prompted a consult to palliative care to have goals of care discussions with the patient and family. Upon meeting with Genny at bedside she was minimally interactive at the time of assessment. She was struggling to remember the year but was able to choose correctly from a multiple-choice. I then progressed to talk to the family about goals of care to see if they were aware of what her wishes would be going forward. The patient's , Dylon, did state that she has mentioned that she is getting tired of all of this. Several times but was unaware if she was just saying it or if it was what she was actually meaning. I continue to provide education about the patient's echocardiogram and what that means in lay terms which family stated understanding. We also talked about the various options going forward for goals of care to include SNF rehab, outpatient palliative services or hospice. I did answer multiple questions about hospice to include hospice at home, hospice at an inpatient hospice unit or usp with hospice. I did explain the differences between the 3 as well as provided brochures on the differences between hospice and palliative care as well as brochures and a list of hospice/palliative facilities. I did spend an extensive amount of time explaining her medical diagnoses as well as the discussion about Cindy's wishes. We also had an extensive discussion about CODE STATUS and what that would look like for CAD based on her comorbidities and the benefits versus burdens of CPR and intubation. Family felt comfortable with the decision to make Cindy a DNR CC?a. At the end of her conversation Genny was more awake and able to have a meaningful conversation which she stated agreement with the DNR CCA we then clarified whether she would want intubation or not in which she stated that she would. CODE STATUS was then changed to DNR CCA with intubation. Patient was in agreement as well as family. I did leave the family with all of the information that I provided and they want to have a discussion with the rest of the family and Genny before making any decisions. I did let them know that there will be social work and case management this weekend and that if they do make a decision they can let one of them know over the weekend. They are hopeful that Genny will be able to participate more in goals of care conversations so that they can honor her wishes. All questions answered. Palliative care will continue to follow for goals of care conversations as clinical picture evolves. per hospitalist: CINDY COYLE, is a 75 F who presented to [facility] ED on 08/15/2025 with shortness of breath with exertion. Medical history is significant for ESRD on HD, colon cancer s/p right hemicolectomy, paroxysmal A-fib not on anticoagulation due to history of lower GI bleed on Eliquis, chronic nocturnal hypoxia on 2 L, LAYLA and class II obesity. Patient lives at home with her and has decent functional status at baseline, uses a 4 point walker for ambulation. She reports new onset shortness of breath with exertion over the past 1-1/2 to 2 weeks. Has not missed any dialysis sessions and notes that they have been taking more fluid off with each dialysis session for the past 3-4 sessions. Has been compliant with her home CPAP and oxygen at night. She does report worsened lower extremity swelling over that timeframe as well. She has been wearing her compression stockings on a daily basis and notes this has been mild to moderately helpful. Notes she thought it might be acid reflux symptoms so she tried to change her diet somewhat but had no improvement. She had dialysis done earlier today before coming into the ED. In the ED she was hypoxic to 88% on room air at rest, improved to the low to mid 90s on 2 L nasal cannula. She notably did drop to the mid 70s on room air with exertion and had significant shortness of breath noted. Chest x-ray showed CHF with mild vascular congestion/interstitial edema and probable trace left pleural effusion. CBC was benign. BMP with potassium 5.4. EKG with no hyperkalemic changes noted. Given her volume overload and hypoxia, hospitalist was contacted for admission. I saw the patient at bedside in the ED. Patient was sitting up comfortably at the edge of the bed, conversing normally, in no acute distress. She had a good energy level noted. States that aside from this recent shortness of breath with exertion and lower extremity swelling, she has done well over the past several months. She reports some decreased p.o. intake in that timeframe due to abdominal bloating. She reports intermittent palpitations and notes that she has an palpitations during dialysis today, which is not abnormal for her. She otherwise denies any acute concerns currently. Will be admitted for further management. This note was generated with [employer] dictation software. It may contain incorrect words, spelling, and punctuation that were not noted in checking the note before signing. Palliative Assessment Advanced Directive - Current Admission Advance Directive: Advance Directive ON ADMISSION - REFERENCE Do you have a Healthcare Yes 08/15/25 18:42 Living Will? Is a Healthcare Living Will No, requested patient bring 08/15/25 18:42 present in the medical record? copy into [facility] Do you have a Healthcare Power Yes 08/15/25 18:42 of Manager Hardware? Is a Healthcare Power of No, requested patient bring 08/15/25 18:42 Manager Hardware present in the copy into [facility] medical rec Do You Want Additional Declined 08/15/25 18:42 Information on Advanced Directives or Healthcare Proxy/DPOA comments: Dylon [phone] Psychosocial/Spiritual Information Living situation/Marital status: and lives with her Geographic location: [facility] Supports: Family Hindu/Mallorie or spiritual preference: Restorationist Spiritual distress: Unable to participate in spiritual distress discussion Prior functional status: Patient was able to ambulate with a walker and do some of her own ADLs Assistive devices at home: Walker Information about the patient as a person: Patient enjoys spending time with family Symptoms Palliative performance scale: 40% Palliative prognostic index: 12.0 (PPI of greater than 6, life expectancy is less than 3 weeks.) Dyspnea symptoms: Moderate Nausea symptoms: None Vomiting symptoms: None Depression symptoms: Mild Anorexia symptoms: Mild Insomnia symptoms: None Diarrhea symptoms: None Fatigue symptoms: Severe Weakness symptoms: Moderate Confusion symptoms: Moderate Objective Data Objective Data Echocardiogram: Moderately dilated left ventricle, severe generalized left ventricular hypokinesis. Estimated LVEF 10 to 15%, at least stage I diastolic dysfunction, moderately dilated right ventricular cavity with moderate RV systolic dysfunction, there is moderate hiatal dilatation, mild to moderate mitral valve insufficiency, moderate tricuspid valve insufficiency, right ventricular systolic pressure estimated to be 57 mmHg, mild to moderate aortic valve stenosis. Vital Signs: Vital Signs Temp Pulse Resp BP Pulse Ox O2 Del Method O2 Flow Rate 96.9 F L 67 19 H 79/41 L 100 Bi-pap 3 08/19/25 09:57 08/19/25 11:35 08/19/25 11:35 08/19/25 11:35 08/19/25 11:35 08/19/25 11:35 08/18/25 22:28 FiO2 35 08/19/25 11:35 Oxygen Flow Rate (L/min) 3 Oxygen Delivery Method Bi-pap Weight: 198 lb 13.711 oz Body Mass Index (BMI) 36.6 Intake & Output: Intake and Output for Last 24 Hours 08/17/25 08/18/25 08/19/25 23:59 23:59 23:59 Intake Total 960 / 960 1060 / 1060 0 / 0 Output Total 1850 / 1850 0 / 0 0 / 0 Balance -890 / -890 1060 / 1060 0 / 0 Lab / Micro Data Attestation: I reviewed the patient's lab results. Lab results narrative: Hemoglobin is 10.4 with hematocrit 34.0, potassium is 5.9 prior to dialysis, chloride is 96. BUN of 51, creatinine of 4.92 and GFR of 9. 08/19/25 04:47 08/19/25 04:47 Labs: Laboratory Results - last 24 hr 08/18/25 15:57: Ammonia 21.4 08/19/25 04:47: WBC 6.1, RBC 3.18 L, Hgb 10.4 L, Hct 34.0 L, MCV 106.9 H, MCH 32.7 H, MCHC 30.6 L, RDW Std Deviation 58.0 H, RDW Coeff of Ernie 14.7 H, Plt Count 257, MPV 10.4, Immature Gran % (Auto) 0.500, Neut % (Auto) 78.2 H, Lymph % (Auto) 8.7 L, Cooper % (Auto) 9.9, Eos % (Auto) 2.0, Baso % (Auto) 0.7, Absolute Neuts (auto) 4.8, Absolute Lymphs (auto) 0.53 L, Nucleated RBC % 0, Sodium 133, Potassium 5.9 H, Chloride 96 L, Carbon Dioxide 25.2, Anion Gap 12, BUN 51 H, Creatinine 4.92 H, Estim Creat Clear Calc 10.47 L, Est GFR (MDRD) Non-Af 9 L, BUN/Creatinine Ratio 10.3, Glucose 87, Calcium 9.1 Micro: Microbiology 08/15/25 20:05 Mucosa - Nasopharyngeal Respiratory Panel (PCR) - Final 08/15/25 14:33 Mucosa - Nose SARS-CoV-2, Influenza & RSV (PCR) - Final ABG Data ABG results: ABG 08/18/25 08/18/25 08/19/25 15:16 20:37 07:23 Specimen Type ART ART ART Sample Site L Radial L Radial L Radial pH 7.20 L* 7.30 L 7.25 L Bicarbonate Actual 30.0 H 29.9 H 30.1 H Total CO2 32 32 32 Base Excess 2 4 H 3 H O2 Saturation 88 L 97 98 O2 % 2.0 30.0 35.0 ABG pCO2 76.4 H* 60.7 H 68.9 H* ABG pO2 70 L 97 115 H Serjio Test Positive Negative Respiration Rate 16 O2 Delivery Device Cannula BiPAP BiPAP Vent Mode Not entered Not entered AVAPS Tidal Volume 450.0 POC PEEP 8 Crit Call To/Read Back Yes Yes Blood Gas Notified Anastasia HUMMEL Blood Gas Notified Time 15:18:21 07:25:49 Clinical Comments AVAPS Attestation: I personally reviewed and interpreted this ABG as follows: Interpretation: Respiratory acidosis. Radiography Diagnostic Testing: Radiology Impression Chest X-Ray 08/18/25 15:45 IMPRESSION: Left thoracic transvenous pacemaker/AICD device with leads again seen. The cardiomediastinal silhouette is stable, with a calcified and tortuous aorta noted. Generalized osteopenia is again prominently identified. Lungs are significantly hypoinflated,, with questionable small left pleural effusion. No pneumothorax is seen. No gross acute pneumonic process is otherwise seen. Reading Location: [facility] Impressions & Recommendations Patient & Family Issues discussed with the patient and family: Goals of care going forward and CODE STATUS Patient goal: Patient wants to speak with her family about options before deciding on her goals. CODE STATUS changed to DNR CC?a with intubation Family goal: Patient's family wants to honor her wishes. Ethical & Legal Ethical and legal: None noted Impressions Impressions: At the very least, patient would benefit from outpatient palliative care services. If patient decides to discontinue dialysis I would highly recommend hospice services. Recommentation Palliative recommendations: Outpatient palliative and SNF or hospice Encouter Achieved as a result of this Palliative Care Encounter: [[id number], [phone], [phone] ] minutes were spent in total for this visit which consisted, primarily of counseling and education dealing with the complex and emotionally intense issues of symptom management and palliative care in the setting of serious and potentially life-threatening illness. Review of documentation, labs and radiological studies. ?Patient/family had the opportunity to ask questions Plan (1) CHF exacerbation: (2) ESRD (end stage renal disease): (3) Acute renal failure (ARF): (4) Hemodialysis patient: (5) Goals of care, counseling/discussion: (6) Palliative care encounter: PLAN: Plan *Medical management per primary team *Information provided to the patient and family about outpatient palliative care as well as hospice services. *Family plans on meeting and discussing options going forward with the patient. Awaiting children's. *CODE STATUS changed to DNR CC?A. With intubation
[2025-08-19 14:37] LABS: Base Excess 4 mmol/L (-2 to +2); FI02 2.0; PO2 72 mmHG (75-100); SITE L Radial; SO2 92 % (94-98)
--- NOTE | 2025-08-19 15:14 | PCM.PN.REN ---
Subjective Subjective events noted Objective Data Objective Data Vital Signs: Vital Signs Temp Pulse Resp BP Pulse Ox O2 Del Method O2 Flow Rate 97.9 F 70 18 97/72 100 Nasal Cannula 2 08/19/25 15:11 08/19/25 15:11 08/19/25 15:11 08/19/25 15:11 08/19/25 15:11 08/19/25 15:11 08/19/25 15:11 FiO2 35 08/19/25 11:35 Oxygen Flow Rate (L/min) 2 Oxygen Delivery Method Nasal Cannula Weight: 88.3 kg Body Mass Index (BMI) 35.8 Intake & Output: Intake and Output for Last 24 Hours 08/17/25 08/18/25 08/19/25 23:59 23:59 23:59 Intake Total 960 / 960 1060 / 1060 0 / 0 Output Total 1850 / 1850 0 / 0 1979 Balance -890 / -890 1060 / 1060 -1979 Lab / Micro Data 08/19/25 04:47 08/19/25 04:47 Labs: Laboratory Results - last 24 hr 08/18/25 15:57: Ammonia 21.4 08/19/25 04:47: WBC 6.1, RBC 3.18 L, Hgb 10.4 L, Hct 34.0 L, MCV 106.9 H, MCH 32.7 H, MCHC 30.6 L, RDW Std Deviation 58.0 H, RDW Coeff of Ernie 14.7 H, Plt Count 257, MPV 10.4, Immature Gran % (Auto) 0.500, Neut % (Auto) 78.2 H, Lymph % (Auto) 8.7 L, [place] % (Auto) 9.9, Eos % (Auto) 2.0, Baso % (Auto) 0.7, Absolute Neuts (auto) 4.8, Absolute Lymphs (auto) 0.53 L, Nucleated RBC % 0, Sodium 133, Potassium 5.9 H, Chloride 96 L, Carbon Dioxide 25.2, Anion Gap 12, BUN 51 H, Creatinine 4.92 H, Estim Creat Clear Calc 10.47 L, Est GFR (MDRD) Non-Af 9 L, BUN/Creatinine Ratio 10.3, Glucose 87, Calcium 9.1 Micro: Microbiology 08/15/25 20:05 Mucosa - Nasopharyngeal Respiratory Panel (PCR) - Final 08/15/25 14:33 Mucosa - Nose SARS-CoV-2, Influenza & RSV (PCR) - Final ABG Data ABG results: ABG 08/18/25 08/18/25 08/19/25 15:16 20:37 07:23 Specimen Type ART ART ART Sample Site L Radial L Radial L Radial pH 7.20 L* 7.30 L 7.25 L Bicarbonate Actual 30.0 H 29.9 H 30.1 H Total CO2 32 32 32 Base Excess 2 4 H 3 H O2 Saturation 88 L 97 98 O2 % 2.0 30.0 35.0 ABG pCO2 76.4 H* 60.7 H 68.9 H* ABG pO2 70 L 97 115 H Serjio Test Positive Negative Respiration Rate 16 O2 Delivery Device Cannula BiPAP BiPAP Vent Mode Not entered Not entered AVAPS Tidal Volume 450.0 POC PEEP 8 Crit Call To/Read Back Yes Yes Blood Gas Notified Whom guicho HUMMEL Blood Gas Notified Time 15:18:21 07:25:49 Clinical Comments AVAPS 08/19/25 14:33 Specimen Type ART Sample Site L Radial pH 7.29 L Bicarbonate Actual 30.3 H Total CO2 32 Base Excess 4 H O2 Saturation 92 L O2 % 2.0 ABG pCO2 63.4 H ABG pO2 72 L Serjio Test N/A Respiration Rate O2 Delivery Device Cannula Vent Mode Not entered Tidal Volume POC PEEP Crit Call To/Read Back Blood Gas Notified Whom Blood Gas Notified Time Clinical Comments Radiography Diagnostic Testing: Radiology Impression Chest X-Ray 08/18/25 15:45 IMPRESSION: Left thoracic transvenous pacemaker/AICD device with leads again seen. The cardiomediastinal silhouette is stable, with a calcified and tortuous aorta noted. Generalized osteopenia is again prominently identified. Lungs are significantly hypoinflated,, with questionable small left pleural effusion. No pneumothorax is seen. No gross acute pneumonic process is otherwise seen. Reading Location: [facility]-[address] 08/19/25 08:01 IMPRESSION: Coronary artery calcification (CAC) is is present Marked cardiomegaly. Focal infiltrate in the posterior medial segment of the right lower lobe with small right pleural effusion. Reading Location: [facility] Physical Exam Narrative Alert awake oriented x 3 no obvious distress no pallor no icterus no JVD s1s2 no murmurs lungs clear abdomen soft no organomegaly Assessment & Plan Assessment/Plan (1) ESRD (end stage renal disease): PLAN: Dialysis today. UF extended after dialysis. Fluid removal tolerance has been poor. Midodrine with dialysis.
--- NOTE | 2025-08-19 16:00 | CASEMGMT ---
Social Work SW faxed clinicals to [facility] requesting authorization for pt to go to [facility] at discharge. Phone call to Ekaterina at [facility] ([phone]). Case has been approved. Auth# [id number]. Auth good 08/19-08/22. Message sent to [facility] via [employer] with Auth number. RNCM updated. Plan: [facility], skilled level of care When medically ready LORY Fierro
--- NOTE | 2025-08-19 19:46 | PCM.PN.BLA ---
Progress Note Briefly, patient is 75-year-old female admitted with worsening hypoxemic respiratory failure now currently on BiPAP. Cardiology consulted this afternoon upon transfer to ICU. Originally patient presented with complaints of shortness of breath. Her past medical history is significant for end-stage renal disease on dialysis, history of colon cancer status post hemicolectomy, atrial fibrillation, obesity. During this admission, her ejection fraction was 10 to 15% on echocardiography. It is unclear currently the chronicity of this heart failure, but it appears to chronic due to documented ICD placement and shared EMR. Patient recently transferred to ICU for worsening respiratory failure. Patient is being followed by nephrology for IHD. Notably fluid removal has been poor, necessitating midodrine per nephrology notes. Cardiology consulted for worsening respiratory failure in the setting of volume overload and heart failure reduced ejection action. Agree with ICU plan for goals of care discussion. Hospice/palliative care is very reasonable at this time. It is unlikely with significant comorbidities, multiorgan failure, recent cancer, advanced age, documented debility, that patient would be a candidate for advanced cardiac therapies. Prognosis is very poor. Agree with plan to augment volume removal through temporary dialysis line if able. Obtain lactate. Augmentation of blood pressure/cardiac output during this with pressors and inotropic support as able. If if patient/medical decision maker wishes to maintain full support/full code, would recommend immediate transfer to higher level of care. Patient seen and examined at bedside and discussed with ICU staff. Full consult note to follow in the morning. Ongoing goals of care/disposition per primary ICU team. Dylon Trujillo DO MPH Account General Manager
--- NOTE | 2025-08-19 19:52 | NURSING ---
1930- Dr. Trujillo, Dr. Vargas and Greg Driver EPIC PROFESSIONAL bedside to discuss patient plan of care.
[2025-08-19] MEDS: DOBUTamine IV 500 MG in Dextrose 5%-Water (250mL Bag) 210 ML 6.6 MG IV (21:09)
[2025-08-19] MEDS: BRIMONIDINE 0.15% 5 ML Bottle 1 DRP RIGHT EYE (21:10)
[2025-08-20] VITALS (20 sets, daily range): BP systolic 93–109; BP diastolic 32–82; PULSE 68–78; RESP 16–23; TEMP 36.6–37.3; O2SAT 96–100; BMI 37.0
[2025-08-20] MEDS: 0.9% Saline Lock 10 ML Syringe IV ×2 (05:25→14:13)
[2025-08-20] MEDS: Heparin Injection (Vial) 5,000 UNIT/ML VIAL 5000 UNIT SC (05:26)
[2025-08-20 05:44] LABS: Hematocrit 32.8 % (37-47); Hemoglobin 10.2 g/dL (12.0-15.0); Immature Granulocytes Count 0.030 X10^3/uL (0.0-0.0); Mean Corp Hgb Conc 31.1 g/dL (32-36); Mean Corpuscular Volume 105.8 fL (81-99); Mean Platelet Vol. 10.2 fl (6.2-12.0); NRBC Flagged by Analyzer 0 % (0-5); POSITIVE DIFFERENTIAL YES; Platelet Count 211 K/mm3 (150-450); RBC Distribution Width CV 14.8 % (11.6-14.6); RBC Distribution Width SD 57.2 fl (35.1-43.9); Red Blood Count 3.10 M/mm3 (4.2-5.4); White Blood Count 6.7 K/mm3 (4.4-11.0)
--- NOTE | 2025-08-20 05:50 | RAD_ITS ---
PROCEDURE: RAD/Chest 1 View (Portable)
--- NOTE | 2025-08-20 05:52 | NURSING ---
0551- this RN called patients son per patient request, no answer and VM left w/ instructions to call back
[2025-08-20 06:14] LABS: Anion Gap 10 (5-15); BUN 38 mg/dL (4-19); BUN/Creat Ratio 9.3 RATIO (10-20); Calcium,Total 8.9 mg/dL (7.6-11.0); Carbon Dioxide 27.5 mmol/L (21.0-32.0); Chloride 100 mmol/L (98-108); Estimated Creatinine Clearance 12.75 ml/min (50-250); Glucose 108 mg/dL (70-99); Potassium 5.1 mmol/L (3.3-5.1)
--- NOTE | 2025-08-20 08:06 | NURSING ---
spoke at length w/pt. she indicates she wishes to go to [facility] and have a new body. She again requests her son be called. shortly after this discuss, her son Reji returned rn shift mgr RNs call. update given, notified his mother's wishes to stop all treatment. Questions answered re code status, hospice. He states they are on their way in but live 45min away. pt notified conversation.
--- NOTE | 2025-08-20 08:48 | PCM.CONS.C ---
Assessment & Plan Assessment/Plan (1) Decompensated heart failure with reduced ejection fraction (HFrEF): PLAN: - Patient with prior dual-chamber ICD placement, unknown chronicity or etiology at this time per shared EMR -LVEF 10 to 15% on echocardiogram this admission - Currently patient normotensive with negative venous lactate - With resultant respiratory failure, and volume overload evidence on chest x-ray - Etiology of respiratory failure is likely multifactorial in the setting of heart failure above, as well as end-stage renal disease with inadequate volume removal due to hypotension from poor cardiac function. - Patient warm on exam, and is perfusing. Plan - Agree with hospice/palliative measures - Rest of care per primary and palliative teams - Please alert cardiology if goals of care change (2) ESRD (end stage renal disease): PLAN: See plan above (3) Acute renal failure (ARF): PLAN: See plan above (4) Respiratory failure: PLAN: See plan above HPI Consult Data Date of Consult: 08/20/25 HPI Narrative Reason for Consultation: Heart failure HPI Narrative: CLINTON COYLE, is a 75 F currently on ICU with hypoxemic respiratory failure now currently on BiPAP. Patient has a significant past medical history of end-stage renal disease on IHD, history of colon cancer status post colectomy, and heart failure reduced ejection fraction status post dual-chamber ICD placement. The chronicity of this heart failure is unclear at this time in shared EMR. Patient originally presented to ED on 08/15 with complaints of dyspnea and poor oxygen saturations. Patient was treated with IHD, however this was complicated by hypotension limiting volume removal and necessitating midodrine therapy per nephrology. Patient's respiratory status yesterday began to worsen requiring BiPAP. There was concern for volume overload. On assessment last evening, patient was on BiPAP with blood pressures 90s to 100s over 50s to 60s, and appeared encephalopathic. Optimal venous access was being determined, as patient likely would have been difficult to lie flat for central access. Goals of care discussion were ongoing. With worsening respiratory failure, inadequate volume removal and venous access, and concern for worsening multiorgan failure, possible transfer for escalation of care if within goals of care was discussed. Venous lactate later resulted at less than 1, patient now weaned to nasal cannula. Blood pressure ~90/50. Patient seen at bedside. She admits she feels well with no complaints. She is symptomatically improved. She has family beside her, as patient plans to transition to hospice [facility] Medical History Dialysis patient Kidney disease ICD (implantable cardioverter-defibrillator) in place Pacemaker Vascular dialysis catheter in place History of Clostridium difficile infection Cancer Bruising Easy bruising Restless legs History of GI bleed On home oxygen therapy Hypertension History of pacemaker Heel spur Colon cancer Colonic mass ESRD (end stage renal disease) Hypercalcemia Wears glasses History of steroid therapy Walker as ambulation aid Diabetes History of renal dialysis History of renal disease Anemia Dietary restriction History of diverticulitis Former smoker BiPAP (biphasic positive airway pressure) dependence Sleep apnea Shortness of breath on exertion History of edema History of echocardiogram Cardiology follow-up encounter History of irregular heartbeat Restrictive lung disease Morbid obesity Pacemaker Heart disease Bone spur Low blood pressure Acute renal failure (ARF) Home Medications ?Medication ?Instructions ?Recorded ?Last Taken ?Type bisoprolol fumarate 5 mg tablet 2.5 mg PO MOWEFRSA BP 05/17/21 04/25/25 History brimonidine 0.1 % eye drops 1 drp RIGHT EYE BID glaucoma 05/31/21 04/26/25 History (Alphagan P) fluorometholone 0.1 % eye 1 drp EACH EYE QODAY eye drop 05/31/21 08/19/24 History drops,suspension pantoprazole 40 mg tablet,delayed 40 mg PO DAILY reflux 30 days #0 07/02/24 04/26/25 Rx release tabs midodrine 10 mg tablet 10 mg PO BID blood pressure 08/20/24 04/27/25 History multivitamin (Daily-Francine tablet) 1 tab PO DAILY vitamin 08/20/24 04/27/25 History colestipol 1 gram tablet 1 - 2 g PO DAILY PRN diarrhea 04/14/25 04/27/25 History prednisone 10 mg tablet 10 mg PO DAILY inflammation 08/15/25 Unknown History sucroferric oxyhydroxide 500 mg 500 - 1,000 mg PO BID 08/15/25 Unknown History chewable tablet (Velphoro) OXYGEN - Supplemental ([facility] hypoxia 08/16/25 Unknown History INFORMATIONAL USE ONLY) lisinopril 5 mg tablet 5 mg PO DAILY #30 tabs 08/17/25 Unknown Rx Allergy/AdvReac Type Severity Reaction Status Date / Time Tetracyclic Antidepressants Allergy Intermediate Other Verified 08/15/25 13:19 Tricyclic Antidepressants Allergy Intermediate Other Verified 08/15/25 13:19 and Tricy ibuprofen Allergy Mild PT UNSURE Verified 08/15/25 13:19 OF REACTION Phenylpiperazine Allergy NEEDS Verified 08/15/25 13:19 Antidepressant FOLLOW-UP apixaban (From Eliquis) AdvReac Severe bleeding Verified 08/15/25 13:19 Family History Father Diabetes Heart disease Mother Heart disease Surgical History History of cholecystectomy History of implantable cardiac defibrillator (ICD) History of colonoscopy History of esophagogastroduodenoscopy (EGD) S/P right hemicolectomy History of arteriovenostomy for renal dialysis S/P cardiac pacemaker procedure S/P laparoscopic cholecystectomy Social History household members: spouse Smoking Status: Former smoker Tobacco: How many years used: 10 how long ago did patient quit smokin years alcohol intake: never ROS ROS Narrative 14 point review systems reviewed, and negative unless specified in HPI above Physical Exam Narrative Gen: A&Ox3, NAD ?HEENT: Normocephalic/Atraumatic, MMM ?Neck: Supple, no JVD ?Pulm: Normal work of breathing, CTA bilaterally with no wheezes or crackles ?CV: RRR, normal S1/S2, no m/r/g ?Abd: Soft, NT/ND ?Extr: Warm to touch, no LE edema, distal pulses intact and symmetric in upper and lower extremities ?Neuro: No gross focal deficits, normal speech ?Psych: Normal affect, answers questions appropriately Objective Data Vital Signs: Vital Signs Temp Pulse Resp BP Pulse Ox O2 Del Method O2 Flow Rate 98.2 F 78 22 H 93/52 L 96 Nasal Cannula 2 08/20/25 04:00 08/20/25 06:00 08/20/25 06:00 08/20/25 06:00 08/20/25 06:00 08/20/25 06:00 08/20/25 06:00 FiO2 30 08/20/25 05:00 Oxygen Flow Rate (L/min) 2 Oxygen Delivery Method Nasal Cannula Weight: 201 lb 4.8 oz Body Mass Index (BMI) 37.0 Intake & Output: Intake and Output for Last 24 Hours 08/18/25 08/19/25 08/20/25 23:59 23:59 23:59 Intake Total 1060 / 1060 13.31 / 13.31 Output Total 0 / 0 1979 0 / 0 Balance 1060 / 1060 -1965.69 / -1965. 0 / 0 Lab / Micro Data 08/20/25 05:36 08/20/25 05:36 Labs: Laboratory Results - last 24 hr 08/19/25 19:47: Lactic Acid < 1.0 08/20/25 05:36: WBC 6.7, RBC 3.10 L, Hgb 10.2 L, Hct 32.8 L, MCV 105.8 H, MCH 32.9 H, MCHC 31.1 L, RDW Std Deviation 57.2 H, RDW Coeff of Ernie 14.8 H, Plt Count 211, MPV 10.2, Immature Gran % (Auto) 0.400, Neut % (Auto) 76.9 H, Lymph % (Auto) 7.3 L, [place] % (Auto) 11.0 H, Eos % (Auto) 3.7, Baso % (Auto) 0.7, Absolute Neuts (auto) 5.2, Absolute Lymphs (auto) 0.49 L, Nucleated RBC % 0, Sodium 137, Potassium 5.1, Chloride 100, Carbon Dioxide 27.5, Anion Gap 10, BUN 38 H, Creatinine 4.07 H, Estim Creat Clear Calc 12.75 L, Est GFR (MDRD) Non-Af 11 L, BUN/Creatinine Ratio 9.3 L, Glucose 108 H, Calcium 8.9 ABG Data ABG results: ABG 08/19/25 14:33 Specimen Type ART Sample Site L Radial pH 7.29 L Bicarbonate Actual 30.3 H Total CO2 32 Base Excess 4 H O2 Saturation 92 L O2 % 2.0 ABG pCO2 63.4 H ABG pO2 72 L Serjio Test N/A O2 Delivery Device Cannula Vent Mode Not entered Cardiology Labs/Tests 08/19/25 14:33: pH 7.29 L, Bicarbonate Actual 30.3 H, Base Excess 4 H, O2 Saturation 92 L, ABG pCO2 63.4 H, ABG pO2 72 L, Serjio Test N/A 08/19/25 19:47: Lactic Acid < 1.0 08/20/25 05:36: WBC 6.7, RBC 3.10 L, Hgb 10.2 L, Hct 32.8 L, MCV 105.8 H, MCH 32.9 H, MCHC 31.1 L, Plt Count 211, MPV 10.2, Immature Gran % (Auto) 0.400, Neut % (Auto) 76.9 H, Lymph % (Auto) 7.3 L, [place] % (Auto) 11.0 H, Eos % (Auto) 3.7, Baso % (Auto) 0.7, Absolute Neuts (auto) 5.2, Nucleated RBC % 0, Sodium 137, Potassium 5.1, Chloride 100, Carbon Dioxide 27.5, Anion Gap 10, BUN 38 H, Creatinine 4.07 H, Est GFR (MDRD) Non-Af 11 L, BUN/Creatinine Ratio 9.3 L, Glucose 108 H, Calcium 8.9 Rhythm: EKG: ECHO: Stress Test: Cardiac Cath: PCI: CT Surgery: Holter monitor: EPS: PPM: CXR: Chest CT Scan: Radiography Diagnostic Testing: Radiology Impression Chest CT 08/19/25 08:01 IMPRESSION: Coronary artery calcification (CAC) is is present Marked cardiomegaly. Focal infiltrate in the posterior medial segment of the right lower lobe with small right pleural effusion. Reading Location: [id number] Chest X-Ray 08/20/25 05:50 IMPRESSION: Mild cardiomegaly and mild pulmonary vascular congestion. Reading [facility] Risk Score for UA/STEMI Assesmment (YES = 1) Risk Stratification Applicable: No
--- NOTE | 2025-08-20 09:19 | PN.HOSP_ITS ---
Reason for Visit
--- NOTE | 2025-08-20 09:19 | PCM.PN.HOSP ---
Reason for Visit Chief Complaint: Shortness of breath with exertion Subjective Subjective Requested. Hospice. Met with hospice and plan is to go hospice tommorrow. Objective Data Objective Data Vital Signs: Vital Signs Temp Pulse Resp BP Pulse Ox O2 Del Method O2 Flow Rate 36.8 C 75 19 H 93/52 L 98 Nasal Cannula 2 08/20/25 04:00 08/20/25 07:45 08/20/25 07:45 08/20/25 06:00 08/20/25 07:45 08/20/25 06:00 08/20/25 06:00 FiO2 30 08/20/25 07:45 Oxygen Flow Rate (L/min) 2 Oxygen Delivery Method Nasal Cannula Weight: 91.308 kg Body Mass Index (BMI) 37.0 Intake & Output: Intake and Output for Last 24 Hours 08/18/25 08/19/25 08/20/25 23:59 23:59 23:59 Intake Total 1060 / 1060 13.31 / 13.31 Output Total 0 / 0 1979 / 1979 0 / 0 Balance 1060 / 1060 -1965.69 / - 0 / 0 Lab / Micro Data 08/20/25 05:36 08/20/25 05:36 Labs: Laboratory Results - last 24 hr 08/19/25 19:47: Lactic Acid < 1.0 08/20/25 05:36: WBC 6.7, RBC 3.10 L, Hgb 10.2 L, Hct 32.8 L, MCV 105.8 H, MCH 32.9 H, MCHC 31.1 L, RDW Std Deviation 57.2 H, RDW Coeff of Ernie 14.8 H, Plt Count 211, MPV 10.2, Immature Gran % (Auto) 0.400, Neut % (Auto) 76.9 H, Lymph % (Auto) 7.3 L, [place] % (Auto) 11.0 H, Eos % (Auto) 3.7, Baso % (Auto) 0.7, Absolute Neuts (auto) 5.2, Absolute Lymphs (auto) 0.49 L, Nucleated RBC % 0, Sodium 137, Potassium 5.1, Chloride 100, Carbon Dioxide 27.5, Anion Gap 10, BUN 38 H, Creatinine 4.07 H, Estim Creat Clear Calc 12.75 L, Est GFR (MDRD) Non-Af 11 L, BUN/Creatinine Ratio 9.3 L, Glucose 108 H, Calcium 8.9 Micro: Microbiology 08/15/25 20:05 Mucosa - Nasopharyngeal Respiratory Panel (PCR) - Final 08/15/25 14:33 Mucosa - Nose SARS-CoV-2, Influenza & RSV (PCR) - Final ABG Data ABG results: ABG 08/19/25 14:33 Specimen Type ART Sample Site L Radial pH 7.29 L Bicarbonate Actual 30.3 H Total CO2 32 Base Excess 4 H O2 Saturation 92 L O2 % 2.0 ABG pCO2 63.4 H ABG pO2 72 L Serjio Test N/A O2 Delivery Device Cannula Vent Mode Not entered Radiography Diagnostic Testing: Radiology Impression Chest CT 08/19/25 08:01 IMPRESSION: Coronary artery calcification (CAC) is is present Marked cardiomegaly. Focal infiltrate in the posterior medial segment of the right lower lobe with small right pleural effusion. Reading Location: [id number] Chest X-Ray 08/20/25 05:50 IMPRESSION: Mild cardiomegaly and mild pulmonary vascular congestion. Reading Location[facility] Physical Exam Const alert Constitutional Narrative: on BiPAP. No respiratory distress. no conversational dyspnea. Resp Resp Narrative: coarse breath sounds bilaterally. Cardio regular rate and regular rhythm GI normal to inspection, nondistended, normoactive bowel sounds, soft to palpation, non-tender and non-distended Extremity Extremity Narrative: edema in LE. Assessment & Plan Assessment/Plan (1) ESRD (end stage renal disease): PLAN: Plan Acute HFrEF echo shows an EF 10-15% Suspected new onset CHF exacerbation with hypoxia Chest x-ray showed CHF with mild vascular congestion/interstitial edema and probable trace left pleural effusion. Hemodialysis w fluid removal as permited. dobutamine started 08/19 Now hospice, will deescalate therapy. ESRD on HD Nephrology consulted. On HD Friday and has been compliant with sessions. Appreciate nephrology recommendations. Continue home phosphate binder and midodrine. now hospice Mild hyperkalemia 5.9. Pt to have HD today. Debility: pt too weak and barely able to make it to the door. Acute Respiratory hypercapnic failure and acidosis 2/2 CHF, pleural effusion, LAYLA. noted increased lethargy and confusion 08/18. ABG c/w respiratory acidosis. Pt ordered back on BiPAP. Repeat ABG this AM shows, showed slight improvement but still abnormal. Continue BiPAP. Consult pulmonary for further input. limited CXR on 08/18 due to hypoinflation, possible left pleural effusion. Chronic medical conditions: Paroxysmal A-fib: not on anticoagulation due to history of lower GI bleed on Eliquis, history of pacemaker placement. Patient in atrial sensed, ventricular paced rhythm at 88 bpm on admit. Class II obesity with LAYLA and chronic nocturnal hypoxia: Has 2 L nasal cannula bled into CPAP at night at home. Continue CPAP at night here. BMI 37 on admit, complicates hospital course and care. GERD: History of colon cancer s/p right hemicolectomy: now hospice, no additional follow up. History of prior right AV fistula iatrogenic rupture: Had rupture of right forearm AV fistula in the past with subsequent placement of new AV fistula in the right upper arm. Has been utilizing new AV fistula for the past month or so with no issues. DVT prophylaxis: hospice, will defer. CODE STATUS: DNRCC Patient and family met with hospice today. Plan is to go to the [facility] tomorrow (hospice center). She would like to continue BiPAP until then, but request comfort medications in the interim. So, I will deescalate medications and implement comfort measures.
--- NOTE | 2025-08-20 10:29 | CASEMGMT ---
Addendum entered by Jenelle Woodard 08/20/25 12:10: [facility] called this SW, they were not able to reach the son, left him a message. SW brought the phone to the son in ICU, and put the son on the phone w/son. Plan is for hospice to meet w/family between 12-2pm. SW let pt's RN and physician know the time. ERICK Casanova Original Note: Social Work SW spoke w/RN, plan is for pt to meet w/hospice, referral placed. SW called [facility], faxed referral, they are to call son Reji to set up a meeting time. SW will continue to follow. ERICK Casanova
--- NOTE | 2025-08-20 10:40 | CPS ---
Addendum entered by Nicole Pena 08/20/25 12:01: RN reported patient was off BiPAP for approx 2 hours and was recently placed back on after O2 sats dropped. Original Note: Hospitalist in room speaking with patient and family. BiPAP check not done.
--- NOTE | 2025-08-20 11:30 | NURSING ---
interior design program chair present in pt room, speaking w/pt and her family
[2025-08-20] MEDS: BRIMONIDINE 0.15% 5 ML Bottle 1 DRP RIGHT EYE ×2 (14:38→21:03)
--- NOTE | 2025-08-20 14:38 | PCM.PN.TICU ---
Objective Data Objective Data Vital Signs: Vital Signs Last response Temperature 36.6 C 08/20/25 08:00 Temperature Source Temporal 08/20/25 08:00 Pulse Rate 71 08/20/25 11:00 Pulse Strength Weak (1+) 08/19/25 20:07 Respiratory Rate 17 08/20/25 11:00 Respiratory Effort Short of Breath 08/20/25 08:00 Respiratory Depth Shallow 08/20/25 08:00 Respiratory Pattern Normal 08/20/25 08:00 Blood Pressure 95/32 L 08/20/25 11:00 Blood Pressure Mean 53 08/20/25 11:00 Blood Pressure Source Monitor 08/20/25 11:00 Blood Pressure Position Semi-Fowlers 08/20/25 11:00 Blood Pressure Location Left Arm 08/20/25 11:00 Pulse Ox 100 08/20/25 11:00 Oxygen Delivery Method Bi-pap 08/20/25 11:00 Oxygen Flow Rate (L/min) 30 08/20/25 11:00 Fraction of Inspired Oxygen (FIO2) 30 08/20/25 07:45 I&O: I&O Last 24 Hours 08/19/25 08/20/25 08/20/25 23:59 11:59 23:59 Intake Total 13.31 / 13.31 Output Total 1979 0 / 0 Balance -1965.69 / - 0 / 0 I&O: Total Stay 08/15/25 13:18 thru 08/20/25 05:55 Intake Total 2913.31 Output Total 6060 Balance -3146.69 Current Meds Ordered / Administered: Current meds ordered / Administered Generic Name Dose Route Start Last Admin Trade Name Freq PRN Reason Stop Dose Admin Acetaminophen 650 mg 08/15/25 18:42 08/20/25 14:10 Acetaminophen 325 Mg Tablet PO 650 mg Q6H PRN PRN Administration Pain 1-10 Or Fever>100.7 Brimonidine Tartrate 1 drp 08/19/25 22:00 08/19/25 21:10 Brimonidine 0.15% 5 Ml Bottle RIGHT EYE 1 drp BID SIMONE Administration Lorazepam 0.5 mg 08/20/25 14:00 Lorazepam 2 Mg/Ml Bottle SL Q4H PRN PRN ANXIETY Melatonin 3 mg 08/15/25 18:42 Melatonin 3 Mg Tablet PO QHS PRN PRN INSOMNIA Morphine Sulfate 10 mg 08/20/25 14:00 Morphine (Oral Solution) 10mg/0.5ml Syringe SL/PO Q1H PRN PRN pain 1-10/ shortness of breath Nystatin 1 applic 08/20/25 14:00 Nystatin Powder 15gm Bottle TOPICAL TID [facility] Protocol Ondansetron HCl 4 mg 08/15/25 18:42 08/18/25 10:46 Ondansetron 4 Mg/2 Ml Vial IV 4 mg Q8H PRN PRN Administration NAUSEA/VOMITING Prednisone 10 mg 08/16/25 10:00 08/20/25 12:07 Prednisone 10 Mg Tablet PO Not Given DAILY [facility] Sodium Chloride 10 - 40 ml 08/15/25 18:44 08/20/25 14:13 0.9% Saline Lock 10 Ml Syringe IV 20 ml UD PRN Administration SALINE FLUSH Lab / Micro Data 08/20/25 05:36 08/20/25 05:36 Labs: Laboratory Results - last 24 hr 08/19/25 19:47: Lactic Acid < 1.0 08/20/25 05:36: WBC 6.7, RBC 3.10 L, Hgb 10.2 L, Hct 32.8 L, MCV 105.8 H, MCH 32.9 H, MCHC 31.1 L, RDW Std Deviation 57.2 H, RDW Coeff of Ernie 14.8 H, Plt Count 211, MPV 10.2, Immature Gran % (Auto) 0.400, Neut % (Auto) 76.9 H, Lymph % (Auto) 7.3 L, [place] % (Auto) 11.0 H, Eos % (Auto) 3.7, Baso % (Auto) 0.7, Absolute Neuts (auto) 5.2, Absolute Lymphs (auto) 0.49 L, Nucleated RBC % 0, Sodium 137, Potassium 5.1, Chloride 100, Carbon Dioxide 27.5, Anion Gap 10, BUN 38 H, Creatinine 4.07 H, Estim Creat Clear Calc 12.75 L, Est GFR (MDRD) Non-Af 11 L, BUN/Creatinine Ratio 9.3 L, Glucose 108 H, Calcium 8.9 Imaging Radiology Impression Chest X-Ray 08/20/25 05:50 IMPRESSION: Mild cardiomegaly and mild pulmonary vascular congestion. Reading Location: [facility] Assessment and Plan . Assessment and plan: Assessment/Plan HFrEF/Dilated Cardiomyopathy Acute Hypercapnic Respiratory Failure ESRD Metabolic Encephalopathy History of Colon Cancer Hypotension Left Pleural Effusion - she has voiced a desire for less aggressive care, favoring comfort measures above other approaches. Extended discussion held with patient and staff today RE this- she will discuss with family today - can continue use of bipap for COMFORT PRN Critical Care Time: 50 minutes The entirety of this encounter was done via Telemedicine Physical Exam Const alert and oriented x3 General Appearance: cooperative and comfortable HEENT normocephalic Eyes PERRL and EOMs intact bilaterally Neck no JVD Resp normal respiratory effort Subjective Subjective Seen while still in ICU, status since downgraded
--- NOTE | 2025-08-20 20:28 | NURSING ---
Bipap settings given to [facility] for transportation. Santy from the [facility] said he will arrange transport tomorrow morning.
[2025-08-21 02:08] VITALS: PULSE 65; RESP 16; RESP 18; O2SAT 95
[2025-08-21 07:30] VITALS: RESP 16
--- NOTE | 2025-08-21 08:30 | NURSING ---
environmental lawyer Raquel present in pt room, final arrangements made for dc to [facility] later this am. She spoke w/pt's son via phone.
[2025-08-21 09:00] VITALS: BP 101/47; PULSE 83; RESP 22; TEMP 36.6; O2SAT 95
--- NOTE | 2025-08-21 09:07 | DCINST_ITS ---
Discharge Instructions
--- NOTE | 2025-08-21 09:07 | PCM.DC ---
Discharge Instructions DC O2, CPAP, BIPAP needs Home O2 Discharge instructions: Yes Type of respiratory needs?: Oxygen Oxygen frequency: Continuous Continuous oxygen liters per minute: 3 Follow Up Care Test Results: Test results from this visit will be discussed in further detail at your follow-up appointment, if applicable. Discharge Plan Admission Admit Date/Time: 08/15/25 17:36 Primary Reason for Your Visit: CHF exacerbation Attending Provider: Ang Messina Primary Care Provider: Khloe Pabon Consulting Providers: Ang Messina; Joe Farah Discharge Orders/Prescriptions Prescriptions: Continued bisoprolol fumarate 5 mg tablet 2.5 mg PO Rx Instructions: 1/2 tab in the evening on dialysis days and Friday fluorometholone 0.1 % drops,suspension 1 drp EACH EYE QODAY brimonidine [Alphagan P] 0.1 % drops 1 drp RIGHT EYE BID Patient Comments: instill ONE DROP IN THE RIGHT EYE TWICE DAILY colestipol 1 gram tablet 1 - 2 g PO DAILY PRN (Reason: diarrhea) prednisone 10 mg tablet 10 mg PO DAILY Velphoro 500 mg tablet,chewable 500 - 1,000 mg PO BID Patient Comments: takes with meals sometimes, but doesn't know how often to actually take it OXYGEN - Supplemental ([facility] INFORMATIONAL USE ONLY) Patient Comments: pt states she uses 3L at night. Uses [facility]. BIPAP -Bilevel Positive Airway Pressure ([facility] INFORMATIONAL USE ONLY) Patient Comments: Home Settings: VAuto, PS 5, Max epap 10, Min epap 5 DME: [facility] pantoprazole 40 mg Tablet,Delayed Release (Dr/Ec) 40 mg PO DAILY 30 Days Qty: 0 0RF Patient Comments: pt. only takes a couple times a week multivitamin [Daily-Francine] Tablet 1 tab PO DAILY midodrine 10 mg tablet 10 mg PO BID Rx Instructions: TAKE 1 TABLET PRIOR TO DIALYSIS Discontinued CPAP - Continuous Positibve Airway Pressure([facility] INFORMATIONAL USE ONLY) Patient Comments: Home Settings: VAuto, PS 5, Max epap 10, Min epap 5 DME: [facility] Disposition Disposition (needs filled in before D/C Order can be placed): Hospice in Medical Facility
--- NOTE | 2025-08-21 09:07 | PCM.DC.SUM ---
Providers Date of Admission: 08/15/25 Date of Discharge: 08/21/25 Primary Care Physician: Khloe Pabon MD Reason For Visit: SOB W/ HYPOXIA Diagnosis Discharge Diagnosis (1) ESRD (end stage renal disease): Status: Chronic Code(s): N18.6 - End stage renal disease Medications at Discharge Home Medications bisoprolol fumarate 5 mg tablet 2.5 mg PO MOWEFRSA BP 05/17/21 brimonidine 0.1 % eye drops (Alphagan P) 1 drp RIGHT EYE BID glaucoma 05/31/21 fluorometholone 0.1 % eye drops,suspension 1 drp EACH EYE QODAY eye drop 05/31/21 pantoprazole 40 mg tablet,delayed release 40 mg PO DAILY reflux 30 days #0 tabs 07/02/24 midodrine 10 mg tablet 10 mg PO BID blood pressure 08/20/24 multivitamin (Daily-Francine tablet) 1 tab PO DAILY vitamin 08/20/24 colestipol 1 gram tablet 1 - 2 g PO DAILY PRN diarrhea 04/14/25 prednisone 10 mg tablet 10 mg PO DAILY inflammation 08/15/25 sucroferric oxyhydroxide 500 mg chewable tablet (Velphoro) 500 - 1,000 mg PO BID 08/15/25 OXYGEN - Supplemental ([facility] INFORMATIONAL USE ONLY) hypoxia 08/16/25 BIPAP -Bilevel Positive Airway Pressure ([facility] INFORMATIONAL USE ONLY) unknown 08/21/25 Hospital Course Operations None Procedures Dialysis, EKG, Transthoracic echo and - (Chest x-ray x 2, CT chest) Summary of Care Provided Minutes Spent on Discharge: 36 Hospital Course: Patient is a 75-year-old female who presented to [facility] ED on 08/15/2025 with shortness of breath on exertion. Hospital course as noted below. Patient was discharged to inpatient hospice on 08/21. Acute HFrEF echo shows an EF 10-15% Suspected new onset CHF exacerbation with hypoxia Chest x-ray showed CHF with mild vascular congestion/interstitial edema and probable trace left pleural effusion. Hemodialysis w fluid removal as permitted. dobutamine started 08/19 Transitioned to hospice on 08/20 so therapy was de-escalated and comfort medications ordered. Discharged to inpatient hospice at the [facility] in [place] on 08/21. ESRD on HD Nephrology followed. On HD Friday and has been compliant with sessions. Appreciate nephrology recommendations. Continue home phosphate binder and midodrine. now hospice as above Mild hyperkalemia hospice as above Debility: pt too weak and barely able to make it to the door Acute Respiratory hypercapnic failure and acidosis 2/2 CHF, pleural effusion, LAYLA. noted increased lethargy and confusion 08/18. ABG c/w respiratory acidosis. Pt ordered back on BiPAP. Repeat ABG this AM shows, showed slight improvement but still abnormal. Continue BiPAP. Consult pulmonary for further input. limited CXR on 08/18 due to hypoinflation, possible left pleural effusion Chronic medical conditions: Paroxysmal A-fib: not on anticoagulation due to history of lower GI bleed on Eliquis, history of pacemaker placement. Patient in atrial sensed, ventricular paced rhythm at 88 bpm on admit. Class II obesity with LAYLA and chronic nocturnal hypoxia: Has 2 L nasal cannula bled into CPAP at night at home. Continue CPAP at night here. BMI 37 on admit, complicated hospital course and care. GERD: History of colon cancer s/p right hemicolectomy: now hospice, no additional follow up. History of prior right AV fistula iatrogenic rupture: Had rupture of right forearm AV fistula in the past with subsequent placement of new AV fistula in the right upper arm. Has been utilizing new AV fistula for the past month or so with no issues. Total clinical time spent by myself addressing the patient's medical issues, reviewing all the data, and collaborating with patient's care team: 36 minutes. Physical Exam Const alert Constitutional Narrative: on BiPAP. No respiratory distress. no conversational dyspnea. Resp Resp Narrative: coarse breath sounds bilaterally. Cardio regular rate and regular rhythm GI normal to inspection, nondistended, normoactive bowel sounds, soft to palpation, non-tender and non-distended Extremity Extremity Narrative: edema in LE. Weight / BMI Weight Weight: 91.308 kg Body Mass Index (BMI) 37.0 ABG / Lab / Microbiology Data 08/20/25 05:36 08/20/25 05:36 Microbiology: Microbiology 08/15/25 20:05 Mucosa - Nasopharyngeal Respiratory Panel (PCR) - Final 08/15/25 14:33 Mucosa - Nose SARS-CoV-2, Influenza & RSV (PCR) - Final D/C Instructions DC O2, CPAP, BIPAP Needs Home O2 Discharge instructions: Yes Type of respiratory needs?: Oxygen Oxygen frequency: Continuous Continuous oxygen liters per minute: 3 DC home with Oxygen: No Meaningful Use Info Meaningful Use Meaningful Use Diagnoses (Choose all that apply): CHF CHF MARGARITA/ARB ordered at discharge?: No Reason MARGARITA/ARB not ordered?: Not indicated (hospice) Documented LVEF (%): 10 Discharge Plan Admission Admit Date/Time: 08/15/25 17:36 Primary Reason for Your Visit: CHF exacerbation Attending Provider: Ang Messina Primary Care Provider: Khloe Pabon Consulting Providers: Ang Messina; Joe Farah Discharge Orders/Prescriptions Prescriptions: Continued bisoprolol fumarate 5 mg tablet 2.5 mg PO Rx Instructions: 1/2 tab in the evening on dialysis days and Friday fluorometholone 0.1 % drops,suspension 1 drp EACH EYE QODAY brimonidine [Alphagan P] 0.1 % drops 1 drp RIGHT EYE BID Patient Comments: instill ONE DROP IN THE RIGHT EYE TWICE DAILY colestipol 1 gram tablet 1 - 2 g PO DAILY PRN (Reason: diarrhea) prednisone 10 mg tablet 10 mg PO DAILY Velphoro 500 mg tablet,chewable 500 - 1,000 mg PO BID Patient Comments: takes with meals sometimes, but doesn't know how often to actually take it OXYGEN - Supplemental ([facility] INFORMATIONAL USE ONLY) Patient Comments: pt states she uses 3L at night. Uses [facility]. BIPAP -Bilevel Positive Airway Pressure ([facility] INFORMATIONAL USE ONLY) Patient Comments: Home Settings: VAuto, PS 5, Max epap 10, Min epap 5 DME: [facility] pantoprazole 40 mg Tablet,Delayed Release (Dr/Ec) 40 mg PO DAILY 30 Days Qty: 0 0RF Patient Comments: pt. only takes a couple times a week multivitamin [Daily-Francine] Tablet 1 tab PO DAILY midodrine 10 mg tablet 10 mg PO BID Rx Instructions: TAKE 1 TABLET PRIOR TO DIALYSIS Discontinued CPAP - Continuous Positibve Airway Pressure([facility] INFORMATIONAL USE ONLY) Patient Comments: Home Settings: VAuto, PS 5, Max epap 10, Min epap 5 DME: [facility] Disposition Disposition (needs filled in before D/C Order can be placed): Hospice in Medical Facility Charges/Coding Visit Charges Inpatient E&M: 05122 Disch Hosp >30min
[2025-08-21] MEDS: 0.9% Saline Lock 10 ML Syringe IV (09:15)
[2025-08-21] MEDS: BRIMONIDINE 0.15% 5 ML Bottle 1 DRP RIGHT EYE (09:16)
[2025-08-21 10:45] VITALS: BP 101/47; PULSE 83; RESP 22; TEMP 36.6; O2SAT 95
== END 2025-08-21 11:20 | disposition hospice, inpatient (51) | DRG 291 ==
LOC: ED 17:49 → PCU 18:20 → ICU 08-19 17:54
PROVIDERS: Internal Medicine; Student in an Organized Health Care Education/Training Program; Admitting Provider Hospitalist; Emergency Provider Student in an Organized Health Care Education/Training Program; PCP Student in an Organized Health Care Education/Training Program; Visit Provider Hospitalist
DX: I13.2 Hypertensive heart and chronic kidney disease with heart failure and with stage 5 chronic kidney disease, or end stage renal disease (principal); N18.6 End stage renal disease; J96.02 Acute respiratory failure with hypercapnia; G93.41 Metabolic encephalopathy; J96.01 Acute respiratory failure with hypoxia; I50.21 Acute systolic (congestive) heart failure; I24.89 Other forms of acute ischemic heart disease; I47.20 Ventricular tachycardia, unspecified; Z66 Do not resuscitate; E11.22 Type 2 diabetes mellitus with diabetic chronic kidney disease; D64.9 Anemia, unspecified; I34.0 Nonrheumatic mitral (valve) insufficiency; E66.812 Obesity, class 2; Z99.2 Dependence on renal dialysis; I48.0 Paroxysmal atrial fibrillation; E87.5 Hyperkalemia; G47.33 Obstructive sleep apnea (adult) (pediatric); K21.9 Gastro-esophageal reflux disease without esophagitis; I42.0 Dilated cardiomyopathy; I95.9 Hypotension, unspecified; R53.81 Other malaise; Z79.899 Other long term (current) drug therapy; Z85.038 Personal history of other malignant neoplasm of large intestine; Z87.19 Personal history of other diseases of the digestive system; Z95.810 Presence of automatic (implantable) cardiac defibrillator; Z87.891 Personal history of nicotine dependence; Z90.49 Acquired absence of other specified parts of digestive tract; Z68.37 Body mass index [BMI] 37.0-37.9, adult; Z23 Encounter for immunization
CPT/HCPCS: 36415; 36569; 36600; 71045; 71046; 71250; 80048; 82140; 82803; 82962; 83605; 83735; 83880; 84100; 84484; 85025; 85027; 87631; 87633; 90937; 93005; 93306; 94002; 94003; 94668; 97161; 97164; 97166; 97168; 97530; 99285; Q9957; A4216; C8929; G0257; J1938; J2405